=== PATIENT | female | born 1955 | race Caucasian/White ===

== ENCOUNTER 2017-04-23 10:35 | Inpatient (IN) | payer OTHER ==
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
[2017-04-23 10:55] VITALS: BMI 62.8
[2017-04-23] MEDS ORDERED: SODIUM CHLORIDE 0.9% 1000 ML INFUS.BAG IV STA (11:21)
[2017-04-23] MEDS ORDERED: CLINDAMYCIN 900 MG PREMIX IVPB 50 ML IVPB ONE ×2 (11:42→12:16)
[2017-04-23 11:52] LABS: MCHC 28.9 g/dl (32.0-36.0); PLATELET COUNT 257 K/MM3 (134-434); RDW 21.2 % (11.6-15.6); WHITE BLOOD COUNT 20.3 K/mm3 (4.0-10.0)
[2017-04-23] MEDS ORDERED: morphine CARPU-JECT 4 MG/1 ML DISP.SYRIN IVPUSH ONE ×2 (11:53→13:49)
[2017-04-23 11:56] LABS: VENOUS BLOOD GAS HCO3 29.5 meq/L (19-25); VENOUS PH 7.34 (7.32-7.42)
[2017-04-23] MEDS ORDERED: morphine CARPU-JECT 4 MG/1 ML DISP.SYRIN ONE ×2 (11:56→13:51)
[2017-04-23 11:57] LABS: MCH 19.9 pg (25.7-33.7)
[2017-04-23 12:04] LABS: URINE APPEARANCE CLEAR; URINE BILIRUBIN NEGATIVE (NEGATIVE); URINE BLOOD NEGATIVE (NEGATIVE); URINE COLOR YELLOW; URINE GLUCOSE (UA) NEGATIVE (NEGATIVE); URINE KETONE NEGATIVE (NEGATIVE); URINE LEUK ESTERASE NEGATIVE (NEGATIVE); URINE NITRITE NEGATIVE (NEGATIVE); URINE PROTEIN NEGATIVE (NEGATIVE); URINE UROBILINOGEN NEGATIVE mg/dL (0.2-1.0)
[2017-04-23 12:13] LABS: INR 1.28 (0.82-1.09); PROTHROMBIN TIME (PATIENT) 14.1 SEC (9.98-11.88)
[2017-04-23 12:16] LABS: ACTIVATED PTT 28.3 SECONDS (26.9-34.4)
[2017-04-23 12:24] LABS: ANISOCYTOSIS 1+; HYPOCHROMIA 2+; MICROCYTOSIS FEW; PLATELET ESTIMATE ADEQUATE (NORMAL); POLYCHROMASIA 1+; TEAR DROP CELLS FEW
[2017-04-23 12:25] LABS: ALBUMIN 2.2 g/dl (3.4-5.0); ALK PHOS 80 U/L (45-117); ANION GAP 11 (8-16); BILIRUBIN,TOTAL 0.4 mg/dL (0.2-1.0); CO2 31 mmol/L (21-32); CREATININE 1.1 mg/dL (0.55-1.02); GLUCOSE,RANDOM 118 mg/dL (74-106); SGPT/ALT 28 U/L (12-78); TOT PROT 6.9 g/dl (6.4-8.2)
[2017-04-23 12:26] LABS: SGOT/AST 40 U/L (15-37)
[2017-04-23 12:27] LABS: TROPONIN I < 0.02 ng/ml (0.00-0.05)
--- NOTE | 2017-04-23 12:31 | PDOC ---
Attending Attestation - Resident Resident Name: Robert Jameson - ED Attending Attestation I have performed the following: I have examined & evaluated the patient, The case was reviewed & discussed with the resident, I agree w/resident's findings & plan, Exceptions are as noted - HPI HPI: 04/23/17 12:28 Agree with the resident's HPI as documented in the electronic medical record. - Physicial Exam PE: 04/23/17 12:28 Agree with the resident's physical examination as documented in the electronic medical record. - Medical Decision Making 04/23/17 12:28 [id number] female who is morbidly obese with history of asthma, UTI, sepsis presents the emergency department with three-day history of generalized painful rash that is desquamating; she is febrile in the emergency department to 100. Differential diagnosis includes but is not limited to: Toxic shock syndrome, Hawkins-Leonard syndrome, tea and, sepsis, pneumonia, UTI, electrolyte abnormality, toxic/at about derangement. Plan: 1. Euceda culture 2. Urine analysis 3. Labs 4. Chest x-ray 5. IV fluids for hydration 6. Pain management 7. IV antibiotics 8. ID consult 9. Hospital admission 04/23/17 14:42 Addendum: labs have been reviewed and are noted in the EMR. The WBC is markedly elevated and the lactate is 3.6. the case has been discussed with Dr. Vizcarra--will add meropenem, vancomycin and diflucan to the clindamycin. CT scan of the chest, abdomen and pelvis was considered to r/o necrotizing fasciitis however, the patient's weight exceeds the limit for CT scanner. Will admit to the ICU--accepted into the unit by Dr. Dias.
[2017-04-23] MEDS ORDERED: VANCOMYCIN 1,000 MG in DEXTROSE 5%-WATER - 250 ML IVPB ONE (13:22)
[2017-04-23] MEDS ORDERED: MEROPENEM 1,000 MG in DEXTROSE 5%-WATER - 100 ML IVPB ONE (13:22)
[2017-04-23] MEDS ORDERED: VANCOMYCIN 1 GRAM (PRE-DOCKED) 250 ML IVPB ONE (13:32)
--- NOTE | 2017-04-23 13:49 | EKG ---
Test Reason : Blood Pressure : / mmHG Vent. Rate : 111 BPM Atrial Rate : 111 BPM P-R Int : 142 ms QRS Dur : 078 ms QT Int : 316 ms P-R-T Axes : 047 004 040 degrees QTc Int : 429 ms SINUS TACHYCARDIA LOW VOLTAGE QRS BORDERLINE ECG WHEN COMPARED WITH ECG OF 21-FEB-2016 23:33, NO SIGNIFICANT CHANGE WAS FOUND Confirmed by JAYLIN HERRING MD ([id number]) on 04/23/2017 1:48:55 PM Referred By: Confirmed By:JAYLIN HERRING MD
[2017-04-23] MEDS: ACETAMINOPHEN 650 MG/20.3 ML ORAL SOLUTION (CUPS) PO PRN (14:00)
[2017-04-23] MEDS ORDERED: ACETAMINOPHEN 325 MG TABLET (FP) ONE (14:39)
[2017-04-23] MEDS ORDERED: FLUCONAZOLE 200 MG/D5W 100 ML IVPB ONE (14:43)
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
[2017-04-23] MEDS: SODIUM CHLORIDE 1,000 ML IV SCH (15:55)
[2017-04-23] MEDS: SODIUM CHLORIDE 0.9% 1000 ML INFUS.BAG IV ONE ×2 (15:56→20:10)
--- NOTE | 2017-04-23 16:35 | CONSULT ---
Consult Consult Specialty:: infectious diseases Reason for Consultation:: rash,fever,cellulitits - History of Present Illness Chief Complaint: rash,fever,weakness History of Present Illness: 61 year old morbidly obese female who is presenting with her with a progressive painful rash an increasing shortness of breath. according to the notes patient was hypoxic on arrival,currently patient is breathing well Patient's first noticed peeling along the backs of the patient's calfs 4 -5 days ago that was itchy. It then became red and started spreading around her legs and abdomen. Three days ago the rash on the back of the legs started splitting and getting painful. Over the last three days the rash spread over the majority of the rest of her body and became exquisitely painful, especially along the backs of both legs from the buttocks to the knee. also of note is that the patients perinial area is extremely red and painful and i also can see a breach in the skin looking at the patient she looks pretty septic patients in the room patient mentions that she never felt anything like this before and feels very weak. patient is morbidly obese and bed bound - History Source History Provided By: Patient, Family Member Limitations to Obtaining History: No Limitations - Past Medical History Cardio/Vascular: Yes: HTN Pulmonary: Yes: Asthma, Pneumonia - Past Surgical History Past Surgical History: Yes: Colectomy - Alcohol/Substance Use Hx Alcohol Use: No History of Substance Use: reports: None - Smoking History Smoking history: Former smoker Have you smoked in the past 12 months: No Aproximately how many cigarettes per day: 0 If you are a former smoker, when did you quit?: 1979 - Social History ADL: Support Services Occupation: unemployed History of Recent Travel: No Home Medications - Allergies Allergies/Adverse Reactions: Allergies Allergy/AdvReac Type Severity Reaction Status Date / Time piperacillin sodium Allergy Rash Verified 04/23/17 10:50 [From Zosyn] tazobactam sodium Allergy Rash Verified 04/23/17 10:50 [From Zosyn] - Home Medications Home Medications: Ambulatory Orders Acetaminophen [Tylenol] 975 mg PO Q6H PRN 02/22/16 Albuterol 2.5/Ipratropium 0.5 [Duoneb -] 1 neb NEB Q6H 02/22/16 Amitriptyline HCl [Elavil -] 10 mg PO HS 02/22/16 Fluticasone/Salmeterol [Advair 250-50 Diskus] 1 each IH BID 02/22/16 Furosemide [Lasix -] 40 mg PO DAILY 02/22/16 Gabapentin [Neurontin] 300 mg PO Q8H 02/22/16 Heparin - 5,000 unit SQ TID 02/22/16 Mag Hydrox/Al Hydrox/Simeth [Mylanta Oral Suspension -] 30 ml PO Q6H PRN Pantoprazole Sodium [Protonix] 40 mg PO DAILY 02/22/16 Polyvinyl Alcohol [Artificial Tears] 15 ml OD BID 02/22/16 Hydrocortisone 1% Ointment [Hytone 1% Ointment -] 1 applic TP Q6H PRN #0 tube Hydroxyzine HCl [Atarax -] 25 mg PO Q8H PRN #0 tablet 02/29/16 Lisinopril [Prinivil] 20 mg PO BID tablet 02/29/16 Nitrofurantoin Macrocrystal [Macrodantin -] 50 mg PO Q6HPO 5 Days 02/29/16 Nystatin Ointment [Mycostatin Ointment -] 1 applic TP BID applic 02/29/16 Nystatin Powder [Nystop Powder -] 1 applic TP DAILY applic 02/29/16 Phenazopyridine HCl [Pyridium -] 100 mg PO TID tablet 02/29/16 Vitamin A & D Top Oint - 1 applic TP BID tube 02/29/16 Family Disease History - Family Disease History Family Disease History: Heart Disease: Father Review of Systems - Review of Systems Constitutional: reports: Chills, Fever Eyes: reports: No Symptoms HENT: reports: No Symptoms Neck: reports: No Symptoms Cardiovascular: reports: No Symptoms Respiratory: reports: SOB, SOB on Exertion Gastrointestinal: reports: No Symptoms Genitourinary: reports: No Symptoms Integumentary: reports: Bruising, Rash, Other Neurological: reports: No Symptoms Endocrine: reports: No Symptoms Hematology/Lymphatic: reports: No Symptoms Psychiatric: reports: No Symptoms Physical Exam Vital Signs: Vital Signs Temperature 100.0 F H 04/23/17 13:47 Pulse Rate 114 H 04/23/17 13:47 Respiratory Rate 24 04/23/17 13:47 Blood Pressure 105/53 04/23/17 13:47 O2 Sat by Pulse Oximetry (%) 97 04/23/17 13:47 Constitutional: Yes: Moderate Distress, Obese (mrbid obesity), Poor Hygeine Eyes: Yes: Conjunctiva Clear HENT: Yes: Atraumatic Neck: Yes: Supple, Trachea Midline Cardiovascular: Yes: Regular Rate and Rhythm, S1, S2 Respiratory: Yes: Poor Air Entry (at the bases) Gastrointestinal: Yes: Normal Bowel Sounds, Soft Musculoskeletal: Yes: Other Extremities: Yes: Other Edema: LLE: 1+, RLE: 1+ Integumentary: Yes: Erythema, Rash, Skin Tear, Venous Stasis Changes Wound/Incision: Yes: Other (multiple rashes with splitting of the skin all over the body) Neurological: Yes: Alert, Oriented Psychiatric: Yes: Alert, Oriented Imaging - Results Chest X-ray: Report Reviewed, Image Reviewed Assessment/Plan - Problems (1) Cellulitis Code(s): L03.90 - CELLULITIS, UNSPECIFIED Qualifiers: Site of cellulitis: unspecified site Qualified Code(s): L03.90 - Cellulitis, unspecified (2) Desquamated skin Code(s): R23.4 - CHANGES IN SKIN TEXTURE (3) Sepsis Code(s): A41.9 - SEPSIS, UNSPECIFIED ORGANISM Qualifiers: Sepsis type: sepsis due to unspecified organism Qualified Code(s): A41.9 - Sepsis, unspecified organism (4) generalized rash 5 abd wall cellulitis morbid obesity sepsis patient looks like she has staph infection all over the body i am also worried about fungal infection also patient being hypoxic worry is for pe as she is bed bound the perineum has cellulitis and there is slight breach of the skin because of morbid obesity ct scan or mri is not possible plan will start on abx hydration treatment like akins suggest derm consult close monitoring rest as per primary
[2017-04-23] MEDS: morphine CARPU-JECT 4 MG/1 ML DISP.SYRIN IVPB PRN (19:35)
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
[2017-04-23] MEDS: HEPARIN NA (PORCINE) 5,000 UNITS/ML 1ML VIAL SQ SCH (22:17)
[2017-04-23] MEDS: MEROPENEM 1 GM in DEXTROSE 5%-WATER - 100 ML IVPB SCH (22:18)
[2017-04-23] MEDS: CHLORHEXIDINE GLUCONATE 4% CLEANSER FOR DECOLONIZATION TP SCH (22:18)
[2017-04-23] MEDS: MUPIROCIN 2% TOPICAL OINTMENT 22 GM TUBE NS SCH (22:20)
[2017-04-24] MEDS: MEROPENEM 1 GM in DEXTROSE 5%-WATER - 100 ML IVPB SCH ×3 (01:53→17:59)
[2017-04-24] MEDS: HEPARIN NA (PORCINE) 5,000 UNITS/ML 1ML VIAL SQ SCH ×2 (01:53→10:32)
[2017-04-24 06:24] LABS: MCHC 28.4 g/dl (32.0-36.0); MEAN CELL VOLUME 69.7 fl (80-96); MEAN PLT VOLUME 8.9 fl (7.5-11.1); PLATELET COUNT 267 K/MM3 (134-434); RDW 21.7 % (11.6-15.6); WHITE BLOOD COUNT 18.5 K/mm3 (4.0-10.0)
[2017-04-24 06:43] LABS: MCH 19.8 pg (25.7-33.7)
[2017-04-24 07:10] LABS: ALBUMIN 1.9 g/dl (3.4-5.0); ANION GAP 7 (8-16); BILIRUBIN,TOTAL 0.3 mg/dL (0.2-1.0); CALCIUM 7.3 mg/dL (8.5-10.1); CO2 33 mmol/L (21-32); CREATININE 0.9 mg/dL (0.55-1.02); GLUCOSE,RANDOM 82 mg/dL (74-106); PHOSPHOROUS 4.1 mg/dL (2.5-4.9); SGOT/AST 23 U/L (15-37); SGPT/ALT 26 U/L (12-78); TOT PROT 6.1 g/dl (6.4-8.2)
[2017-04-24 07:11] LABS: ALK PHOS 70 U/L (45-117)
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
[2017-04-24] MEDS ORDERED: PT OWN MED DRAWER 7, Y5N ONE ×3 (09:40→17:14)
[2017-04-24] MEDS: VANCOMYCIN 1,250 MG in DEXTROSE 5%-WATER - 250 ML IVPB SCH (10:32)
[2017-04-24] MEDS: morphine CARPU-JECT 4 MG/1 ML DISP.SYRIN IVPB PRN ×2 (10:41→15:59)
[2017-04-24] MEDS: SODIUM CHLORIDE 1,000 ML IV SCH ×2 (10:44→16:01)
[2017-04-24] MEDS: ACETAMINOPHEN 650 MG/20.3 ML ORAL SOLUTION (CUPS) PO PRN (10:46)
[2017-04-24] MEDS: MUPIROCIN 2% TOPICAL OINTMENT 22 GM TUBE NS SCH ×2 (11:03→23:02)
[2017-04-24] MEDS ORDERED: HEPARIN NA (PORCINE) 5,000 UNITS/ML 1ML VIAL IVPUSH PRN ×3 (11:22→11:33)
[2017-04-24] MEDS ORDERED: HEPARIN - 25,000 UNIT in SODIUM CHLORIDE 495 ML IV SCH (11:30)
[2017-04-24] MEDS ORDERED: HEPARIN NA (PORCINE) 5,000 UNITS/ML 1ML VIAL IVPUSH ONE (11:34)
--- NOTE | 2017-04-24 11:45 | PN ---
Progress Note (short form) - Note Progress Note: Patient seen and examined in the ICU. Awake and alert. No significant change in her superficial skin desquamation. No lesions noted in the oral cavity. No CP. Mildly SOB. There is a concern for VTE. Patient cannot be scanned in CT scanner due to body habitus. Noted increased D-Dimer. Intake & Output 04/21/17 04/22/17 04/23/17 04/24/17 23:59 23:59 23:59 23:59 Intake Total 1000 1350 Output Total 30 650 Balance 970 700 Weight 355 lb 355 lb Last Vital Signs Temp Pulse Resp BP Pulse Ox 99.7 F H 99 H 20 113/56 97 04/24/17 02:00 04/24/17 06:00 04/24/17 06:00 04/24/17 06:00 04/23/17 21:00 Active Medications Acetaminophen (Tylenol Oral Solution -) 650 mg PO Q6H PRN PRN Reason: FEVER OR PAIN Last Admin: 04/24/17 10:46 Dose: 650 mg Chlorhexidine Gluconate (Hibiclens For Decolonization -) 1 applic TP HS WAYNE Last Admin: 04/23/17 22:18 Dose: 1 applic Fentanyl (Sublimaze Injection -) 50 mcg IVPUSH Q1H PRN PRN Reason: PAIN LEVEL 1-5 Stop: 04/24/17 20:29 Last Admin: 04/24/17 06:14 Dose: 50 mcg Heparin Sodium (Porcine) (Heparin -) 5,000 unit IVPUSH PRN PRN PRN Reason: Heparin Heparin Sodium (Porcine) (Heparin -) 1,000 unit IVPUSH PRN PRN PRN Reason: Heparin Heparin Sodium (Porcine) (Heparin -) 5,000 unit IVPUSH ONCE ONE Stop: 04/24/17 11:35 Sodium Chloride (Normal Saline -) 1,000 mls @ 100 mls/hr IV ASDIR WAYNE Last Admin: 04/24/17 10:44 Dose: 100 mls/hr Meropenem 1 gm/ Dextrose 100 mls @ 200 mls/hr IVPB Q8H-IV WAYNE PRN Reason: Protocol Last Admin: 04/24/17 10:32 Dose: 200 mls/hr Vancomycin HCl 1,250 mg/ (Dextrose) 250 mls @ 166.667 mls/hr IVPB DAILY WAYNE PRN Reason: Protocol Last Admin: 04/24/17 10:32 Dose: 166.667 mls/hr Heparin Sodium (Porcine) 25, (000 unit/ Sodium Chloride) 500 mls @ 20 mls/hr IV TITR WAYNE; 1,000 UNIT/HR PRN Reason: Protocol Morphine Sulfate (Morphine Injection -) 4 mg IVPB Q6H PRN PRN Reason: PAIN Last Admin: 04/24/17 10:41 Dose: 4 mg Mupirocin (Bactroban 2% Ointment -) 1 applic NS BID WAYNE Stop: 04/28/17 21:59 Last Admin: 04/24/17 11:03 Dose: Not Given Constitutional: Yes: Awake and alert, Anxious Eyes: Yes: WNL, Conjunctiva Clear, EOM Intact, PERRL (no rash involvement of face/eyes) HENT: Yes: Atraumatic, Normocephalic Neck: Yes: Supple, Trachea Midline. No: Lymphadenopathy, Tenderness Cardiovascular: Yes: Regular Rate and Rhythm, S1, S2, Other (distant) Respiratory: Yes: CTA Bilaterally, Diminished, On Nasal O2. No: Accessory Muscle Use, Wheezes Gastrointestinal: Yes: Soft, Abdomen, Obese ...Rectal Exam: Yes: WNL Renal/: Yes: Kaur Present. No: Vaginal Bleeding, Vaginal Discharge Breast(s): Yes: WNL Musculoskeletal: Yes: WNL Extremities: Yes: Erythema Edema: Yes Edema: LUE: 1+, RUE: 1+, LLE: 1+, RLE: 1+ Peripheral Pulses WNL: Yes Integumentary: Yes: Erythema, Skin Tear, Venous Stasis Changes, Other (diffuse macularpapular rash with desquamation of hand feet, some topical sloughing and significantly worse in folds and labial/perianal no necrosis, no bullae, no crepitus.). No: Petechiae Neurological: Yes: Alert, Oriented ...Motor Strength: WNL Psychiatric: Yes: Alert, Oriented Labs: Laboratory Results - last 24 hr 04/23/17 04/23/17 04/23/17 11:21 11:40 11:40 WBC 20.3 H RBC 4.76 Hgb 9.5 L D Hct 32.8 MCV 69.0 L D MCH 19.9 L MCHC 28.9 L RDW 21.2 H D Plt Count 257 D MPV 9.0 Neutrophils % 61.0 Lymphocytes % 9.0 D Monocytes % 11.0 H Eosinophils % 17.0 H D Basophils % 1.0 D Band Neutrophils 1.0 D Nucleated RBCs 1 H Differential Comment Manual diff done Platelet Estimate Adequate Polychromasia 1+ Hypochromic-Microcytic 2+ Anisocytosis 1+ Microcytosis Few Macrocytosis Few Tear Drop Cells Few Morphology Comment Slide scanned INR 1.28 H PTT (Actin FS) 28.3 D-Dimer VBG pH 7.34 POC VBG pCO2 55.9 H POC VBG pO2 58.8 H D Mixed VBG HCO3 29.5 H Sodium Potassium Chloride Carbon Dioxide Anion Gap BUN Creatinine Creat Clearance w eGFR Random Glucose Hemoglobin A1c % Lactic Acid Calcium Phosphorus Magnesium Total Bilirubin AST ALT Alkaline Phosphatase Creatine Kinase Creatine Kinase Index CK-MB (CK-2) Troponin I Total Protein Albumin Urine Color Urine Appearance Urine pH Ur Specific [place] Urine Protein Urine Glucose (UA) Urine Ketones Urine Blood Urine Nitrite Urine Bilirubin Urine Urobilinogen Ur Leukocyte Esterase Blood Type Antibody Screen 04/23/17 04/23/17 04/23/17 11:40 11:40 11:40 WBC RBC Hgb Hct MCV MCH MCHC RDW Plt Count MPV Neutrophils % Lymphocytes % Monocytes % Eosinophils % Basophils % Band Neutrophils Nucleated RBCs Differential Comment Platelet Estimate Polychromasia Hypochromic-Microcytic Anisocytosis Microcytosis Macrocytosis Tear Drop Cells Morphology Comment INR PTT (Actin FS) D-Dimer VBG pH POC VBG pCO2 POC VBG pO2 Mixed VBG HCO3 Sodium 137 Potassium 4.9 Chloride 95 L Carbon Dioxide 31 Anion Gap 11 BUN 26 H D Creatinine 1.1 H D Creat Clearance w eGFR 50.84 Random Glucose 118 H D Hemoglobin A1c % Lactic Acid 3.6 H* Calcium 8.0 L Phosphorus Magnesium Total Bilirubin 0.4 D AST 40 H D ALT 28 D Alkaline Phosphatase 80 D Creatine Kinase 160 D Creatine Kinase Index 0.8 CK-MB (CK-2) 1.225 Troponin I < 0.02 Total Protein 6.9 Albumin 2.2 L Urine Color Yellow Urine Appearance Clear Urine pH 5.0 Ur Specific [place] 1.010 Urine Protein Negative Urine Glucose (UA) Negative Urine Ketones Negative Urine Blood Negative Urine Nitrite Negative Urine Bilirubin Negative Urine Urobilinogen Negative Ur Leukocyte Esterase Negative Blood Type Antibody Screen 04/23/17 04/23/17 04/24/17 11:40 16:20 05:15 WBC 18.5 H RBC 4.49 Hgb 8.9 L Hct 31.3 L MCV 69.7 L MCH 19.8 L MCHC 28.4 L RDW 21.7 H Plt Count 267 MPV 8.9 Neutrophils % Lymphocytes % Monocytes % Eosinophils % Basophils % Band Neutrophils Nucleated RBCs Differential Comment Platelet Estimate Polychromasia Hypochromic-Microcytic Anisocytosis Microcytosis Macrocytosis Tear Drop Cells Morphology Comment INR PTT (Actin FS) D-Dimer VBG pH POC VBG pCO2 POC VBG pO2 Mixed VBG HCO3 Sodium Potassium Chloride Carbon Dioxide Anion Gap BUN Creatinine Creat Clearance w eGFR Random Glucose Hemoglobin A1c % Lactic Acid 1.8 Calcium Phosphorus Magnesium Total Bilirubin AST ALT Alkaline Phosphatase Creatine Kinase Creatine Kinase Index CK-MB (CK-2) Troponin I Total Protein Albumin Urine Color Urine Appearance Urine pH Ur Specific [place] Urine Protein Urine Glucose (UA) Urine Ketones Urine Blood Urine Nitrite Urine Bilirubin Urine Urobilinogen Ur Leukocyte Esterase Blood Type A POSITIVE Antibody Screen Negative 04/24/17 04/24/17 04/24/17 05:15 05:15 05:15 WBC RBC Hgb Hct MCV MCH MCHC RDW Plt Count MPV Neutrophils % Lymphocytes % Monocytes % Eosinophils % Basophils % Band Neutrophils Nucleated RBCs Differential Comment Platelet Estimate Polychromasia Hypochromic-Microcytic Anisocytosis Microcytosis Macrocytosis Tear Drop Cells Morphology Comment INR PTT (Actin FS) D-Dimer VBG pH POC VBG pCO2 POC VBG pO2 Mixed VBG HCO3 Sodium 138 Potassium 5.3 H Chloride 98 Carbon Dioxide 33 H Anion Gap 7 L BUN 24 H Creatinine 0.9 Creat Clearance w eGFR > 60 Random Glucose 82 D Hemoglobin A1c % 7.6 H Lactic Acid 1.0 Calcium 7.3 L Phosphorus 4.1 Magnesium 2.0 Total Bilirubin 0.3 D AST 23 D ALT 26 Alkaline Phosphatase 70 Creatine Kinase Creatine Kinase Index CK-MB (CK-2) Troponin I Total Protein 6.1 L Albumin 1.9 L Urine Color Urine Appearance Urine pH Ur Specific [place] Urine Protein Urine Glucose (UA) Urine Ketones Urine Blood Urine Nitrite Urine Bilirubin Urine Urobilinogen Ur Leukocyte Esterase Blood Type Antibody Screen 04/24/17 10:15 WBC RBC Hgb Hct MCV MCH MCHC RDW Plt Count MPV Neutrophils % Lymphocytes % Monocytes % Eosinophils % Basophils % Band Neutrophils Nucleated RBCs Differential Comment Platelet Estimate Polychromasia Hypochromic-Microcytic Anisocytosis Microcytosis Macrocytosis Tear Drop Cells Morphology Comment INR PTT (Actin FS) D-Dimer 1293 H VBG pH POC VBG pCO2 POC VBG pO2 Mixed VBG HCO3 Sodium Potassium Chloride Carbon Dioxide Anion Gap BUN Creatinine Creat Clearance w eGFR Random Glucose Hemoglobin A1c % Lactic Acid Calcium Phosphorus Magnesium Total Bilirubin AST ALT Alkaline Phosphatase Creatine Kinase Creatine Kinase Index CK-MB (CK-2) Troponin I Total Protein Albumin Urine Color Urine Appearance Urine pH Ur Specific [place] Urine Protein Urine Glucose (UA) Urine Ketones Urine Blood Urine Nitrite Urine Bilirubin Urine Urobilinogen Ur Leukocyte Esterase Blood Type Antibody Screen Problem List - Problems (1) Cellulitis Code(s): L03.90 - CELLULITIS, UNSPECIFIED Qualifiers: Site of cellulitis: unspecified site Qualified Code(s): L03.90 - Cellulitis, unspecified (2) Desquamated skin Code(s): R23.4 - CHANGES IN SKIN TEXTURE (3) Sepsis Code(s): A41.9 - SEPSIS, UNSPECIFIED ORGANISM Qualifiers: Sepsis type: sepsis due to unspecified organism Qualified Code(s): A41.9 - Sepsis, unspecified organism (4) Drug-induced skin rash Code(s): L27.0 - GEN SKIN ERUPTION DUE TO DRUGS AND MEDS TAKEN INTERNALLY Assessment/Plan Etiology of skin lesions are unclear -> Appears that only the superficial layers are affected. -> Dermatology consult has been called, but appears none are available IVF Agree with empiric IV Heparin O2 as needed I have asked the patient to have her bring in all her pills and his as well for our review. BD TX PRN Hold all home meds for now Would not be inappropriate to disposition the patient to e tertiary care center for further workup. She is currently clinically/hemodynamically stable for transport. Dr Caldwell Critical Care Time/MDM Note Total Critical Care Time: 35 Critical Care Statement: The care of this patient involved high complexity decision making to prevent further life threatening deterioration of the patient 's condition and/or to evalute & treat vital organ system(s) failure or risk of failure.
--- NOTE | 2017-04-24 15:53 | PN ---
Progress Note, Physician History of Present Illness: patient continues to be uncomfortable in icu - Current Medication List Current Medications: Active Medications Acetaminophen (Tylenol Oral Solution -) 650 mg PO Q6H PRN PRN Reason: FEVER OR PAIN Last Admin: 04/24/17 10:46 Dose: 650 mg Albuterol/Ipratropium (Duoneb -) 1 amp NEB Q6H PRN PRN Reason: SHORTNESS OF BREATH Chlorhexidine Gluconate (Hibiclens For Decolonization -) 1 applic TP HS WAYNE Last Admin: 04/23/17 22:18 Dose: 1 applic Fentanyl (Sublimaze Injection -) 50 mcg IVPUSH Q1H PRN PRN Reason: PAIN LEVEL 1-5 Stop: 04/24/17 20:29 Last Admin: 04/24/17 06:14 Dose: 50 mcg Heparin Sodium (Porcine) (Heparin -) 5,000 unit IVPUSH PRN PRN PRN Reason: Heparin Heparin Sodium (Porcine) (Heparin -) 1,000 unit IVPUSH PRN PRN PRN Reason: Heparin Sodium Chloride (Normal Saline -) 1,000 mls @ 100 mls/hr IV ASDIR WAYNE Last Admin: 04/24/17 10:44 Dose: 100 mls/hr Meropenem 1 gm/ Dextrose 100 mls @ 200 mls/hr IVPB Q8H-IV WAYNE PRN Reason: Protocol Last Admin: 04/24/17 10:32 Dose: 200 mls/hr Vancomycin HCl 1,250 mg/ (Dextrose) 250 mls @ 166.667 mls/hr IVPB DAILY WAYNE PRN Reason: Protocol Last Admin: 04/24/17 10:32 Dose: 166.667 mls/hr Heparin Sodium (Porcine) 25, (000 unit/ Sodium Chloride) 500 mls @ 20 mls/hr IV TITR WAYNE; 1,000 UNIT/HR PRN Reason: Protocol Morphine Sulfate (Morphine Injection -) 4 mg IVPB Q6H PRN PRN Reason: PAIN Last Admin: 04/24/17 10:41 Dose: 4 mg Mupirocin (Bactroban 2% Ointment -) 1 applic NS BID WAYNE Stop: 04/28/17 21:59 Last Admin: 04/24/17 11:03 Dose: Not Given - Objective Vital Signs: Vital Signs Temperature 100.3 F H 04/24/17 10:00 Pulse Rate 108 H 04/24/17 12:00 Respiratory Rate 28 H 04/24/17 12:00 Blood Pressure 102/47 04/24/17 12:00 O2 Sat by Pulse Oximetry (%) 100 04/24/17 14:00 Constitutional: Yes: Obese Eyes: Yes: Conjunctiva Clear Respiratory: Yes: Regular, Poor Air Entry Gastrointestinal: Yes: Normal Bowel Sounds, Soft Musculoskeletal: Yes: Other Extremities: Yes: Other Edema: LLE: 2+, RLE: 2+ Integumentary: Yes: Other (rash all over the body with Erythema, Skin Tear, Venous Stasis Changes, diffuse macularpapular rash with desquamation of hand feet, with sloughing which is worse in folds and labial/perianal no necrosis, no bullae, no crepitus.).) Wound/Incision: Yes: Other Neurological: Yes: Alert, Oriented Psychiatric: Yes: Alert, Oriented Labs: CBC, BMP 04/24/17 05:15 04/24/17 05:15 INR, PTT INR 1.28 (0.82-1.09) H 04/23/17 11:40 Assessment/Plan - Problems (1) Cellulitis Code(s): L03.90 - CELLULITIS, UNSPECIFIED Qualifiers: Site of cellulitis: unspecified site Qualified Code(s): L03.90 - Cellulitis, unspecified (2) Desquamated skin Code(s): R23.4 - CHANGES IN SKIN TEXTURE (3) Sepsis Code(s): A41.9 - SEPSIS, UNSPECIFIED ORGANISM Qualifiers: Sepsis type: sepsis due to unspecified organism Qualified Code(s): A41.9 - Sepsis, unspecified organism (4) generalized rash 5 abd wall cellulitis morbid obesity sepsis patient was tried to be transferred to tertiary care was not accepted plan continue abx hydration await for dermatology continue current abx continue as per primary and icu cc time 40 min
[2017-04-24] MEDS: HEPARIN - 25,000 UNIT in SODIUM CHLORIDE 495 ML IV SCH (15:58)
[2017-04-24] MEDS: ALBUTEROL SO4 2.5/IPRATROPIUM 0.5 INH SOL 3 ML VIAL.NEB. NEB PRN (19:11)
[2017-04-24] MEDS ORDERED: LIDOCAINE HCL 1% PRESERVATIVE FREE - 30ML VIAL EP ONE (21:09)
[2017-04-24] MEDS ORDERED: LIDOCAINE 1%-EPI 1:100,000 30 ML MDV IJ ONE (21:30)
[2017-04-24] MEDS ORDERED: INSULIN SLIDING SCALE (NOVOLOG) 1 VIAL SQ SCH (22:00)
[2017-04-24] MEDS ORDERED: MINERAL OIL/PET HY-PHL TOPICAL OINTMENT 454 GM JAR TP ONE (22:30)
[2017-04-24] MEDS: CHLORHEXIDINE GLUCONATE 4% CLEANSER FOR DECOLONIZATION TP SCH (22:51)
[2017-04-24] MEDS: HEPARIN NA (PORCINE) 5,000 UNITS/ML 1ML VIAL IVPUSH PRN (23:00)
[2017-04-25] MEDS ORDERED: ACETAMINOPHEN 1000 MG/100 ML VIAL (NON FORMULARY) IVPB PRN (01:27)
[2017-04-25] MEDS ORDERED: PT OWN MED DRAWER 7, Y5N ONE (01:28)
[2017-04-25] MEDS: MEROPENEM 1 GM in DEXTROSE 5%-WATER - 100 ML IVPB SCH ×3 (01:31→18:46)
[2017-04-25] MEDS ORDERED: LACTATED RINGERS SOLUTION 1,000 ML IV STA (02:43)
[2017-04-25] MEDS ORDERED: PHENYLEPHRINE HCL 10 MG/1 ML SINGLE DOSE VIAL ONE ×3 (04:16→18:37)
[2017-04-25] MEDS: PHENYLEPHRINE HCL 20,000 MCG in SODIUM CHLORIDE 248 ML IVPB SCH ×3 (04:43→19:20)
[2017-04-25 08:30] LABS: BASOPHIL 0.8 % (0-2.0); EOSINOPHIL 14.9 % (0-4.5); MCH 20.1 pg (25.7-33.7); MCHC 28.7 g/dl (32.0-36.0); MEAN CELL VOLUME 69.9 fl (80-96); NEUTROPHILS 68.1 % (42.8-82.8); PLATELET COUNT 265 K/MM3 (134-434); RDW 21.8 % (11.6-15.6); WHITE BLOOD COUNT 19.1 K/mm3 (4.0-10.0)
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
[2017-04-25] MEDS: ACETAMINOPHEN 650 MG/20.3 ML ORAL SOLUTION (CUPS) PO PRN (08:43)
[2017-04-25 08:55] LABS: ALBUMIN 1.8 g/dl (3.4-5.0); ANION GAP 4 (8-16); BILIRUBIN,TOTAL 0.3 mg/dL (0.2-1.0); CALCIUM 7.5 mg/dL (8.5-10.1); CO2 31 mmol/L (21-32); CREATININE 0.6 mg/dL (0.55-1.02); GLUCOSE,RANDOM 95 mg/dL (74-106); SGPT/ALT 25 U/L (12-78); TOT PROT 6.5 g/dl (6.4-8.2)
[2017-04-25 08:56] LABS: ALK PHOS 73 U/L (45-117)
[2017-04-25 08:57] LABS: SGOT/AST 33 U/L (15-37)
[2017-04-25 09:04] LABS: URINE APPEARANCE TURBID; URINE BILIRUBIN NEGATIVE (NEGATIVE); URINE BLOOD 2+ (NEGATIVE); URINE COLOR STRAW; URINE GLUCOSE (UA) NEGATIVE (NEGATIVE); URINE KETONE NEGATIVE (NEGATIVE); URINE LEUK ESTERASE NEGATIVE (NEGATIVE); URINE NITRITE NEGATIVE (NEGATIVE); URINE PROTEIN NEGATIVE (NEGATIVE); URINE UROBILINOGEN NEGATIVE mg/dL (0.2-1.0)
[2017-04-25] MEDS ORDERED: SODIUM POLYSTYRENE SULFONATE 15 GM/60 ML BOTTLE PO ONE ×2 (09:08→09:30)
[2017-04-25] MEDS ORDERED: LIDOCAINE HCL 1%, 10 MG/ML (20ML VIAL) ONE (10:25)
[2017-04-25 10:33] LABS: URIC ACID CRYSTALS MANY /hpf (NONE SEEN); URINE RBC 17 /hpf (0-3); URINE WBC 1 /hpf (3-5)
--- NOTE | 2017-04-25 10:39 | PROC ---
Central Line Insertion Indication: CVP Monitoring, Poor Venous Access, Sepsis, Vasopressor Risks and Benefits Explained: Yes Consent on Chart: Yes Central Line: Triple Lumen Catheter Anesthesia: 1% Lidocaine Sterile Technique: Yes Ultrasound Guided Assistance: Yes Position: Left Internal Jugular Post Insertion: Yes: Bilateral Breath Sounds, Bilateral Chest Expansion Sterile Dressing Applied: Yes
--- NOTE | 2017-04-25 10:45 | PN ---
Progress Note (short form) - Note Progress Note: PULM/CRITICAL CARE MEDICINE: Progress Note (short form) - Note Progress Note: Patient seen and examined in the ICU. 24 HOUR EVENTS: Remains on pressors. IV access is an issue. Not accepted for transfer to tertiary facility. Madhavi saw pt. Current Medications Acetaminophen (Tylenol Oral Solution -) 650 mg PO Q6H PRN PRN Reason: FEVER OR PAIN Last Admin: 04/25/17 08:43 Dose: 650 mg Acetaminophen (Ofirmev Injection -) 1,000 mg IVPB Q6H PRN PRN Reason: FEVER OR PAIN Stop: 04/25/17 19:28 Last Admin: 04/25/17 01:32 Dose: 1,000 mg Albuterol/Ipratropium (Duoneb -) 1 amp NEB Q6H PRN PRN Reason: SHORTNESS OF BREATH Last Admin: 04/24/17 19:11 Dose: 1 amp Chlorhexidine Gluconate (Hibiclens For Decolonization -) 1 applic TP HS WAYNE Last Admin: 04/24/17 22:51 Dose: Not Given Emollient Ointment (Aquaphor -) 1 applic TP TID WAYNE Heparin Sodium (Porcine) (Heparin -) 5,000 unit IVPUSH PRN PRN PRN Reason: Heparin Last Admin: 04/24/17 23:00 Dose: 5,000 unit Heparin Sodium (Porcine) (Heparin -) 1,000 unit IVPUSH PRN PRN PRN Reason: Heparin Sodium Chloride (Normal Saline -) 1,000 mls @ 100 mls/hr IV ASDIR WAYNE Last Admin: 04/24/17 16:01 Dose: Not Given Meropenem 1 gm/ Dextrose 100 mls @ 200 mls/hr IVPB Q8H-IV WAYNE PRN Reason: Protocol Last Admin: 04/25/17 10:16 Dose: 200 mls/hr Vancomycin HCl 1,250 mg/ (Dextrose) 250 mls @ 166.667 mls/hr IVPB DAILY WAYNE PRN Reason: Protocol Last Admin: 04/24/17 10:32 Dose: 166.667 mls/hr Heparin Sodium (Porcine) 25, (000 unit/ Sodium Chloride) 500 mls @ 20 mls/hr IV TITR WAYNE; 1,000 UNIT/HR PRN Reason: Protocol Last Titration: 04/24/17 22:49 Dose: 1,150 unit/hr Phenylephrine HCl 20,000 mcg/ (Sodium Chloride) 250 mls @ 75 mls/hr IVPB ASDIR WAYNE; 100 MCG/MIN PRN Reason: Protocol Last Admin: 04/25/17 04:43 Dose: 37.5 mls/hr Clindamycin Phosphate (Cleocin 600 Mg Premix Ivpb -) 50 mls @ 100 mls/hr IVPB Q6H-IV WAYNE Morphine Sulfate (Morphine Injection -) 4 mg IVPB Q6H PRN PRN Reason: PAIN Last Admin: 04/24/17 15:59 Dose: 4 mg Mupirocin (Bactroban 2% Ointment -) 1 applic NS BID WAYNE Stop: 04/28/17 21:59 Last Admin: 04/24/17 23:02 Dose: 1 applic Vital Signs Temp 99.2 F 04/25/17 10:00 Pulse 100 H 04/25/17 10:32 Resp 24 04/25/17 10:00 BP 96/63 04/25/17 10:00 Pulse Ox 98 04/25/17 10:32 Intake & Output 04/24/17 04/25/17 04/25/17 18:59 06:59 18:59 Intake Total 2130 3310 240 Output Total 400 1450 Balance 1730 1860 240 Intake: IV 1280 2620 Normal Saline - 1,000 ml 1200 2200 @ 100 mls/hr IV ASDIR WAYNE Rx#:[id number] Heparin - 25,000 Unit In 80 270 Normal Saline - 495 ml @ 1,000 UNIT/HR 20 mls/hr IV TITR WAYNE Rx#: [id number] Lactated Ringers Solution 150 1,000 ml @ 1000 mls/hr IV ONCE STA Rx#: [id number] IVPB 450 200 Oral 400 490 240 Output: Urine 400 1450 Kaur 400 1450 Other: Voiding Method Indwelling Catheter Indwelling Catheter Indwelling Catheter Bowel Movement No No Constitutional: Yes: Awake and alert, Anxious Eyes: Yes: WNL, Conjunctiva Clear, EOM Intact, PERRL (no rash involvement of face/eyes) HENT: Yes: Atraumatic, Normocephalic Neck: Yes: Supple, Trachea Midline. No: Lymphadenopathy, Tenderness Cardiovascular: Yes: Regular Rate and Rhythm, S1, S2, Other (distant) Respiratory: Yes: CTA Bilaterally, Diminished, On Nasal O2. No: Accessory Muscle Use, Wheezes Gastrointestinal: Yes: Soft, Abdomen, Obese ...Rectal Exam: Yes: WNL Renal/: Yes: Kaur Present. No: Vaginal Bleeding, Vaginal Discharge Breast(s): Yes: WNL Musculoskeletal: Yes: WNL Extremities: Yes: Erythema Edema: Yes Edema: LUE: 1+, RUE: 1+, LLE: 1+, RLE: 1+ Peripheral Pulses WNL: Yes Integumentary: Yes: Erythema, Skin Tear, Venous Stasis Changes, Other (diffuse macularpapular rash with desquamation of hand feet, some topical sloughing and significantly worse in folds and labial/perianal no necrosis, no bullae, no crepitus.). No: Petechiae Neurological: Yes: Alert, Oriented ...Motor Strength: WNL Psychiatric: Yes: Alert, Oriented Labs: CBC, BMP 04/25/17 08:10 04/25/17 08:10 Microbiology 04/23/17 12:10 Blood Culture - Preliminary Blood - Peripheral Venous NO GROWTH OBTAINED AFTER 24 HOURS, INCUBATION TO CONTINUE FOR 4 DAYS. 04/23/17 11:40 Blood Culture - Preliminary Blood - Peripheral Venous NO GROWTH OBTAINED AFTER 24 HOURS, INCUBATION TO CONTINUE FOR 4 DAYS. 04/23/17 11:40 Urine Culture - Final Urine - Urine Clean Catch NO GROWTH OBTAINED Problem List - Problems (1) Cellulitis Code(s): L03.90 - CELLULITIS, UNSPECIFIED Qualifiers: Site of cellulitis: unspecified site Qualified Code(s): L03.90 - Cellulitis, unspecified (2) Desquamated skin Code(s): R23.4 - CHANGES IN SKIN TEXTURE (3) Sepsis Code(s): A41.9 - SEPSIS, UNSPECIFIED ORGANISM Qualifiers: Sepsis type: sepsis due to unspecified organism Qualified Code(s): A41.9 - Sepsis, unspecified organism (4) Drug-induced skin rash Code(s): L27.0 - GEN SKIN ERUPTION DUE TO DRUGS AND MEDS TAKEN INTERNALLY Assessment/Plan Etiology of skin lesions are unclear -> Appears that only the superficial layers are affected. -> Dermatology consult following, bx done IVF ABX Will place central line for vasopressors and IV access, wean as able O2 as needed BD TX PRN Likely has LYLY/OSH - nocturnal BiPAP/CPAP, start tonight Hold all home meds for now - ?drug rash Would not be inappropriate to disposition the patient to e tertiary care center for further workup. She is currently clinically/hemodynamically stable for transport. Kasi Luis Pulm/Critical Care RECORDIST 7316 Critical Care Time/MDM Note Total Critical Care Time: 35 Critical Care Statement: The care of this patient involved high complexity decision making to prevent further life threatening deterioration of the patient 's condition and/or to evalute & treat vital organ system(s) failure or risk of failure.
[2017-04-25] MEDS: VANCOMYCIN 1,250 MG in DEXTROSE 5%-WATER - 250 ML IVPB SCH (10:57)
[2017-04-25] MEDS: MUPIROCIN 2% TOPICAL OINTMENT 22 GM TUBE NS SCH ×2 (10:58→22:00)
[2017-04-25] MEDS: CLINDAMYCIN 600MG PREMIX IVPB 50 ML IVPB SCH ×3 (11:05→20:33)
--- NOTE | 2017-04-25 11:12 | PN ---
Progress Note, Physician History of Present Illness: events noted from last night patient spiked a fever and became hypotensive patient currently on pressors - Current Medication List Current Medications: Active Medications Acetaminophen (Tylenol Oral Solution -) 650 mg PO Q6H PRN PRN Reason: FEVER OR PAIN Last Admin: 04/25/17 08:43 Dose: 650 mg Acetaminophen (Ofirmev Injection -) 1,000 mg IVPB Q6H PRN PRN Reason: FEVER OR PAIN Stop: 04/25/17 19:28 Last Admin: 04/25/17 01:32 Dose: 1,000 mg Albuterol/Ipratropium (Duoneb -) 1 amp NEB Q6H PRN PRN Reason: SHORTNESS OF BREATH Last Admin: 04/24/17 19:11 Dose: 1 amp Chlorhexidine Gluconate (Hibiclens For Decolonization -) 1 applic TP HS WAYNE Last Admin: 04/24/17 22:51 Dose: Not Given Emollient Ointment (Aquaphor -) 1 applic TP TID WAYNE Heparin Sodium (Porcine) (Heparin -) 5,000 unit IVPUSH PRN PRN PRN Reason: Heparin Last Admin: 04/24/17 23:00 Dose: 5,000 unit Heparin Sodium (Porcine) (Heparin -) 1,000 unit IVPUSH PRN PRN PRN Reason: Heparin Sodium Chloride (Normal Saline -) 1,000 mls @ 100 mls/hr IV ASDIR WAYNE Last Admin: 04/24/17 16:01 Dose: Not Given Meropenem 1 gm/ Dextrose 100 mls @ 200 mls/hr IVPB Q8H-IV WAYNE PRN Reason: Protocol Last Admin: 04/25/17 10:16 Dose: 200 mls/hr Vancomycin HCl 1,250 mg/ (Dextrose) 250 mls @ 166.667 mls/hr IVPB DAILY WAYNE PRN Reason: Protocol Last Admin: 04/25/17 10:57 Dose: 166.667 mls/hr Heparin Sodium (Porcine) 25, (000 unit/ Sodium Chloride) 500 mls @ 20 mls/hr IV TITR WAYNE; 1,000 UNIT/HR PRN Reason: Protocol Last Titration: 04/24/17 22:49 Dose: 1,150 unit/hr Phenylephrine HCl 20,000 mcg/ (Sodium Chloride) 250 mls @ 75 mls/hr IVPB ASDIR WAYNE; 100 MCG/MIN PRN Reason: Protocol Last Admin: 04/25/17 04:43 Dose: 37.5 mls/hr Clindamycin Phosphate (Cleocin 600 Mg Premix Ivpb -) 50 mls @ 100 mls/hr IVPB Q6H-IV WAYNE Last Admin: 04/25/17 11:05 Dose: 100 mls/hr Morphine Sulfate (Morphine Injection -) 4 mg IVPB Q6H PRN PRN Reason: PAIN Last Admin: 04/24/17 15:59 Dose: 4 mg Mupirocin (Bactroban 2% Ointment -) 1 applic NS BID WAYNE Stop: 04/28/17 21:59 Last Admin: 04/25/17 10:58 Dose: 1 applic - Objective Vital Signs: Vital Signs Temperature 99.2 F 04/25/17 10:00 Pulse Rate 100 H 04/25/17 10:32 Respiratory Rate 24 04/25/17 10:00 Blood Pressure 96/63 04/25/17 10:00 O2 Sat by Pulse Oximetry (%) 98 04/25/17 10:32 Constitutional: Yes: No Distress, Obese (morbid) Cardiovascular: Yes: Regular Rate and Rhythm, Tachycardia Respiratory: Yes: Regular, Poor Air Entry, Other Gastrointestinal: Yes: Normal Bowel Sounds, Soft Musculoskeletal: Yes: WNL Extremities: Yes: WNL Neurological: Yes: Alert Psychiatric: Yes: Alert Labs: CBC, BMP 04/25/17 08:10 04/25/17 08:10 INR, PTT INR 1.28 (0.82-1.09) H 04/23/17 11:40 Assessment/Plan - Problems (1) Cellulitis Code(s): L03.90 - CELLULITIS, UNSPECIFIED Qualifiers: Site of cellulitis: unspecified site Qualified Code(s): L03.90 - Cellulitis, unspecified (2) Desquamated skin Code(s): R23.4 - CHANGES IN SKIN TEXTURE (3) Sepsis Code(s): A41.9 - SEPSIS, UNSPECIFIED ORGANISM Qualifiers: Sepsis type: sepsis due to unspecified organism Qualified Code(s): A41.9 - Sepsis, unspecified organism (4) generalized rash 5 abd wall cellulitis morbid obesity sepsis septic shock plan continue abx hydration derm thought process noted added clinda to the mix continue current abx continue as per primary and icu if possible tertiary care center cc time 40 min
[2017-04-25] MEDS: HEPARIN - 25,000 UNIT in SODIUM CHLORIDE 495 ML IV SCH (11:30)
[2017-04-25] MEDS ORDERED: HEPARIN INFUSION - 500 ML IVPB ONE (12:19)
[2017-04-25] MEDS: HEPARIN NA (PORCINE) 5,000 UNITS/ML 1ML VIAL IVPUSH PRN ×2 (12:23→16:15)
[2017-04-25] MEDS: MINERAL OIL/PET HY-PHL TOPICAL OINTMENT 454 GM JAR TP SCH ×2 (14:17→22:00)
[2017-04-25 15:32] LABS: ANION GAP 4 (8-16); CALCIUM 7.4 mg/dL (8.5-10.1); CO2 32 mmol/L (21-32); CREATININE 0.8 mg/dL (0.55-1.02); GLUCOSE,RANDOM 118 mg/dL (74-106)
[2017-04-25] MEDS: ALBUTEROL SO4 2.5/IPRATROPIUM 0.5 INH SOL 3 ML VIAL.NEB. NEB PRN (18:38)
[2017-04-25] MEDS: SODIUM CHLORIDE 1,000 ML IV SCH (18:45)
[2017-04-25] MEDS: morphine CARPU-JECT 4 MG/1 ML DISP.SYRIN IVPB PRN (19:33)
[2017-04-25] MEDS: CHLORHEXIDINE GLUCONATE 4% CLEANSER FOR DECOLONIZATION TP SCH (22:00)
[2017-04-26] MEDS: ALBUTEROL SO4 2.5/IPRATROPIUM 0.5 INH SOL 3 ML VIAL.NEB. NEB PRN ×3 (00:08→17:45)
[2017-04-26] MEDS: ACETAMINOPHEN 650 MG/20.3 ML ORAL SOLUTION (CUPS) PO PRN (00:22)
[2017-04-26] MEDS: HEPARIN - 25,000 UNIT in SODIUM CHLORIDE 495 ML IV SCH ×3 (00:24→17:54)
[2017-04-26] MEDS: HEPARIN NA (PORCINE) 5,000 UNITS/ML 1ML VIAL IVPUSH PRN (00:25)
[2017-04-26] MEDS ORDERED: PT OWN MED DRAWER 7, Y5N ONE ×2 (01:07→19:04)
[2017-04-26] MEDS: MEROPENEM 1 GM in DEXTROSE 5%-WATER - 100 ML IVPB SCH ×3 (01:12→19:14)
[2017-04-26] MEDS: CLINDAMYCIN 600MG PREMIX IVPB 50 ML IVPB SCH ×4 (02:00→21:16)
[2017-04-26] MEDS: PHENYLEPHRINE HCL 20,000 MCG in SODIUM CHLORIDE 248 ML IVPB SCH (05:18)
[2017-04-26] MEDS ORDERED: PHENYLEPHRINE HCL 10 MG/1 ML SINGLE DOSE VIAL ONE (05:21)
[2017-04-26] MEDS: morphine CARPU-JECT 4 MG/1 ML DISP.SYRIN IVPB PRN (05:44)
[2017-04-26] MEDS: MINERAL OIL/PET HY-PHL TOPICAL OINTMENT 454 GM JAR TP SCH ×3 (05:46→21:18)
[2017-04-26 06:17] LABS: MCHC 28.7 g/dl (32.0-36.0); MEAN CELL VOLUME 69.4 fl (80-96); MEAN PLT VOLUME 8.4 fl (7.5-11.1); PLATELET COUNT 283 K/MM3 (134-434)
[2017-04-26 06:41] LABS: MCH 19.9 pg (25.7-33.7)
[2017-04-26 06:49] LABS: ALBUMIN 1.8 g/dl (3.4-5.0); ANION GAP 5 (8-16); CALCIUM 7.6 mg/dL (8.5-10.1); CO2 32 mmol/L (21-32); CREATININE 0.6 mg/dL (0.55-1.02); GLUCOSE,RANDOM 101 mg/dL (74-106); SGOT/AST 15 U/L (15-37); SGPT/ALT 19 U/L (12-78)
[2017-04-26 06:51] LABS: ALK PHOS 69 U/L (45-117); BILIRUBIN,TOTAL 0.6 mg/dL (0.2-1.0); TOT PROT 6.3 g/dl (6.4-8.2)
[2017-04-26 08:26] LABS: BASOPHIL 0.8 % (0-2.0); EOSINOPHIL 10.3 % (0-4.5); NEUTROPHILS 70.3 % (42.8-82.8)
[2017-04-26] MEDS ORDERED: HEPARIN NA (PORCINE) 5,000 UNITS/ML 1ML VIAL IVPUSH PRN ×2 (08:55)
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
[2017-04-26] MEDS: MUPIROCIN 2% TOPICAL OINTMENT 22 GM TUBE NS SCH ×2 (10:00→21:17)
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
[2017-04-26 10:33] LABS: VENOUS BLOOD GAS HCO3 31.8 meq/L (19-25)
[2017-04-26 10:34] LABS: VENOUS PH 7.26 (7.32-7.42)
[2017-04-26 10:35] LABS: TROPONIN I < 0.02 ng/ml (0.00-0.05)
--- NOTE | 2017-04-26 10:40 | PN ---
Progress Note (short form) - Note Progress Note: Patient seen and examined in the ICU. 24 HOUR EVENTS: -spiked ovennight, clinda restarted -remains on low dose pressors -mental status worsening, hypercapnea -[facility] working on bed -on Hep gtt but subtherapeutic, uptitrating, TTE ordered. Current Medications Acetaminophen (Tylenol Oral Solution -) 650 mg PO Q6H PRN PRN Reason: FEVER OR PAIN Last Admin: 04/26/17 00:22 Dose: 650 mg Albuterol/Ipratropium (Duoneb -) 1 amp NEB Q6H PRN PRN Reason: SHORTNESS OF BREATH Last Admin: 04/26/17 00:08 Dose: 1 amp Chlorhexidine Gluconate (Hibiclens For Decolonization -) 1 applic TP HS WAYNE Last Admin: 04/25/17 22:00 Dose: 1 applic Emollient Ointment (Aquaphor -) 1 applic TP TID WAYNE Last Admin: 04/26/17 05:46 Dose: 1 applic Heparin Sodium (Porcine) (Heparin -) 1,000 unit IVPUSH PRN PRN PRN Reason: Heparin Heparin Sodium (Porcine) (Heparin -) 5,000 unit IVPUSH PRN PRN PRN Reason: Heparin Sodium Chloride (Normal Saline -) 1,000 mls @ 100 mls/hr IV ASDIR WAYNE Last Admin: 04/25/17 18:45 Dose: 100 mls/hr Meropenem 1 gm/ Dextrose 100 mls @ 200 mls/hr IVPB Q8H-IV WAYNE PRN Reason: Protocol Last Admin: 04/26/17 01:12 Dose: 200 mls/hr Vancomycin HCl 1,250 mg/ (Dextrose) 250 mls @ 166.667 mls/hr IVPB DAILY WAYNE PRN Reason: Protocol Last Admin: 04/25/17 10:57 Dose: 166.667 mls/hr Phenylephrine HCl 20,000 mcg/ (Sodium Chloride) 250 mls @ 75 mls/hr IVPB ASDIR WAYNE; 100 MCG/MIN PRN Reason: Protocol Last Admin: 04/26/17 05:18 Dose: 18.75 mls/hr Clindamycin Phosphate (Cleocin 600 Mg Premix Ivpb -) 50 mls @ 100 mls/hr IVPB Q6H-IV WAYNE Last Admin: 04/26/17 02:00 Dose: 100 mls/hr Heparin Sodium (Porcine) 25, (000 unit/ Sodium Chloride) 500 mls @ 70 mls/hr IV TITR WAYNE; 3,500 UNIT/HR PRN Reason: Protocol Morphine Sulfate (Morphine Injection -) 4 mg IVPB Q6H PRN PRN Reason: PAIN Last Admin: 04/26/17 05:44 Dose: 4 mg Mupirocin (Bactroban 2% Ointment -) 1 applic NS BID WAYNE Stop: 04/28/17 21:59 Last Admin: 04/25/17 22:00 Dose: 1 applic Vital Signs Temp 99.7 F H 04/26/17 06:00 Pulse 103 H 04/26/17 06:00 Resp 27 H 04/26/17 06:00 BP 104/51 04/26/17 06:00 Pulse Ox 100 04/26/17 06:28 Intake & Output 04/25/17 04/25/17 04/26/17 11:59 23:59 11:59 Intake Total 3300 2349 1750 Output Total 800 1800 800 Balance 2500 549 950 Weight 197 kg 197.3 kg Intake: IV 2620 1749 1650 Normal Saline - 1,000 ml 2200 1000 1000 @ 100 mls/hr IV ASDIR WAYNE Rx#:[id number] Heparin - 25,000 Unit In 270 299 300 Normal Saline - 495 ml @ 1,000 UNIT/HR 20 mls/hr IV TITR WAYNE Rx#: [id number] Lactated Ringers Solution 150 1,000 ml @ 1000 mls/hr IV ONCE STA Rx#: [id number] Sam-Synephrine - 20,000 450 350 Mcg In Normal Saline - 248 ml @ 100 MCG/MIN 75 mls/hr IVPB ASDIR WAYNE Rx# :[id number] IVPB 200 600 50 Oral 480 50 Output: Urine 800 1800 800 Karu 800 1800 800 Other: Voiding Method Indwelling Catheter Indwelling Catheter Indwelling Catheter Bowel Movement No Yes # Bowel Movements 1 Weight Measurement Method Built in Bedscale Built in Bedscale Constitutional: Yes: somulent, withdrawals to pain Eyes: Yes: WNL, Conjunctiva Clear, EOM Intact, PERRL (no rash involvement of face/eyes) HENT: Yes: Atraumatic, Normocephalic Neck: Yes: Supple, Trachea Midline. No: Lymphadenopathy, Tenderness Cardiovascular: Yes: Regular Rate and Rhythm, S1, S2, Other (distant) Respiratory: clean anterior but very diminished Gastrointestinal: Yes: Soft, Abdomen, Obese ...Rectal Exam: Yes: WNL Renal/: Yes: Kaur Present. No: Vaginal Bleeding, Vaginal Discharge Breast(s): Yes: WNL Musculoskeletal: Yes: WNL Extremities: Yes: Erythema Edema: Yes Edema: LUE: 1+, RUE: 1+, LLE: 1+, RLE: 1+ Peripheral Pulses WNL: Yes Integumentary: Yes: Erythema, Skin Tear, Venous Stasis Changes, Other (diffuse macularpapular rash with desquamation of hand feet, some topical sloughing and significantly worse in folds and labial/perianal no necrosis, no bullae, no crepitus.). Some of the more severe areas of rash are slightly more hemmorhagic appearing in setting of Heparin GTT Neurological: with drawals to pain, opens eyes to voice. ...Motor Strength: WNL Psychiatric: N/a Laboratory Last Values WBC 18.0 K/mm3 (4.0-10.0) H 04/26/17 05:20 RBC 4.52 M/mm3 (3.60-5.2) 04/26/17 05:20 Hgb 9.0 GM/dL (10.7-15.3) L 04/26/17 05:20 Hct 31.3 % (32.4-45.2) L 04/26/17 05:20 MCV 69.4 fl (80-96) L 04/26/17 05:20 MCH 19.9 pg (25.7-33.7) L 04/26/17 05:20 MCHC 28.7 g/dl (32.0-36.0) L 04/26/17 05:20 RDW 22.0 % (11.6-15.6) H 04/26/17 05:20 Plt Count 283 K/MM3 (134-434) 04/26/17 05:20 MPV 8.4 fl (7.5-11.1) 04/26/17 05:20 Neutrophils % 70.3 % (42.8-82.8) 04/26/17 05:20 Lymphocytes % 13.4 % (8-40) 04/26/17 05:20 Monocytes % 5.2 % (3.8-10.2) 04/26/17 05:20 Eosinophils % 10.3 % (0-4.5) H 04/26/17 05:20 Basophils % 0.8 % (0-2.0) 04/26/17 05:20 Band Neutrophils 1.0 % (0-10) D 04/23/17 11:40 Metamyelocytes Cancelled 04/26/17 05:20 Myelocytes Cancelled 04/26/17 05:20 Promyelocytes Cancelled 04/26/17 05:20 Nucleated RBCs 1 % (0-0) H 04/23/17 11:40 Differential Comment Manual diff done 04/23/17 11:40 Hypersegmented Neuts Cancelled 04/26/17 05:20 Plasmacytoid Lymphs Cancelled 04/26/17 05:20 Reactive Lymphocytes Cancelled 04/26/17 05:20 Blast Cells Cancelled 04/26/17 05:20 Plasma Cells Cancelled 04/26/17 05:20 Other Cell Type Cancelled 04/26/17 05:20 Toxic Granulation Cancelled 04/26/17 05:20 Dohle Bodies Cancelled 04/26/17 05:20 Racquel Rods Cancelled 04/26/17 05:20 Platelet Estimate Adequate 04/23/17 11:40 Polychromasia 1+ 04/23/17 11:40 Hypochromic-Microcytic 2+ 04/23/17 11:40 Poikilocytosis Cancelled 04/26/17 05:20 Basophilic Stippling Cancelled 04/26/17 05:20 Anisocytosis 1+ 04/23/17 11:40 Microcytosis Few 04/23/17 11:40 Macrocytosis Few 04/23/17 11:40 Spherocytes Cancelled 04/26/17 05:20 Siderocytes Cancelled 04/26/17 05:20 Sickle Cells Cancelled 04/26/17 05:20 Target Cells Cancelled 04/26/17 05:20 Tear Drop Cells Few 04/23/17 11:40 Ovalocytes Cancelled 04/26/17 05:20 Stomatocytes Cancelled 04/26/17 05:20 Helmet Cells Cancelled 04/26/17 05:20 [place] Bodies Cancelled 04/26/17 05:20 Whit[place] Rings Cancelled 04/26/17 05:20 Kory Cells Cancelled 04/26/17 05:20 Acanthocytes (Spur) Cancelled 04/26/17 05:20 Rouleaux Cancelled 04/26/17 05:20 Fragmented RBCs Cancelled 04/26/17 05:20 Schistocytes Cancelled 04/26/17 05:20 Morphology Comment Slide scanned 04/23/17 11:40 INR 1.28 (0.82-1.09) H 04/23/17 11:40 PTT (Actin FS) 36.9 SECONDS (26.9-34.4) H 04/26/17 05:20 D-Dimer 1293 ng/ml (<200-235) H 04/24/17 10:15 VBG pH 7.34 (7.32-7.42) 04/23/17 11:21 POC VBG pCO2 55.9 mmHg (38-52) H 04/23/17 11:21 POC VBG pO2 58.8 mmHg (28-48) H D 04/23/17 11:21 Mixed VBG HCO3 29.5 meq/L (19-25) H 04/23/17 11:21 Sodium 137 mmol/L (136-145) 04/26/17 05:20 Potassium 5.4 mmol/L (3.5-5.1) H 04/26/17 05:20 Chloride 100 mmol/L (98-107) 04/26/17 05:20 Carbon Dioxide 32 mmol/L (21-32) 04/26/17 05:20 Anion Gap 5 (8-16) L 04/26/17 05:20 BUN 11 mg/dL (7-18) D 04/26/17 05:20 Creatinine 0.6 mg/dL (0.55-1.02) D 04/26/17 05:20 Creat Clearance w eGFR > 60 (>60) 04/26/17 05:20 POC Glucometer 152.99131 UNITS (()) 04/25/17 16:34 Random Glucose 101 mg/dL (74-106) 04/26/17 05:20 Hemoglobin A1c % 7.6 % (4.8-6.0) H 04/24/17 05:15 Lactic Acid 1.0 mmol/L (0.4-2.0) 04/24/17 05:15 Calcium 7.6 mg/dL (8.5-10.1) L 04/26/17 05:20 Phosphorus 4.1 mg/dL (2.5-4.9) 04/24/17 05:15 Magnesium 2.0 mg/dL (1.8-2.4) 04/24/17 05:15 Total Bilirubin 0.6 mg/dL (0.2-1.0) D 04/26/17 05:20 AST 15 U/L (15-37) D 04/26/17 05:20 ALT 19 U/L (12-78) D 04/26/17 05:20 Alkaline Phosphatase 69 U/L (45-117) 04/26/17 05:20 Creatine Kinase 160 IU/L (26-192) D 04/23/17 11:40 Creatine Kinase Index 0.8 % (0.0-5.0) 04/23/17 11:40 CK-MB (CK-2) 1.225 ng/ml (0.5-3.6) 04/23/17 11:40 Troponin I < 0.02 ng/ml (0.00-0.05) 04/23/17 11:40 B-Natriuretic Peptide Cancelled 04/26/17 06:00 Total Protein 6.3 g/dl (6.4-8.2) L 04/26/17 05:20 Albumin 1.8 g/dl (3.4-5.0) L 04/26/17 05:20 Urine Color Straw 04/25/17 07:30 Urine Appearance Turbid 04/25/17 07:30 Urine pH 5.0 (5.0-8.0) 04/25/17 07:30 Ur Specific [place] 1.015 (1.005-1.025) 04/25/17 07:30 Urine Protein Negative (NEGATIVE) 04/25/17 07:30 Urine Glucose (UA) Negative (NEGATIVE) 04/25/17 07:30 Urine Ketones Negative (NEGATIVE) 04/25/17 07:30 Urine Blood 2+ (NEGATIVE) H 04/25/17 07:30 Urine Nitrite Negative (NEGATIVE) 04/25/17 07:30 Urine Bilirubin Negative (NEGATIVE) 04/25/17 07:30 Urine Urobilinogen Negative mg/dL (0.2-1.0) 04/25/17 07:30 Ur Leukocyte Esterase Negative (NEGATIVE) 04/25/17 07:30 Urine RBC 17 /hpf (0-3) 04/25/17 07:30 Urine WBC 1 /hpf (3-5) 04/25/17 07:30 Uric Acid Crystals Many /hpf (NONE SEEN) 04/25/17 07:30 Fluid Tot Cell Count Cancelled 04/26/17 05:20 Stool Occult Blood Negative (NEGATIVE) 04/25/17 15:58 Blood Type A POSITIVE 04/23/17 11:40 Antibody Screen Negative 04/23/17 11:40 Microbiology 04/25/17 08:10 Blood - Peripheral Venous Blood Culture - Preliminary NO GROWTH OBTAINED AFTER 24 HOURS, INCUBATION TO CONTINUE FOR 4 DAYS. 04/25/17 08:10 Blood - Peripheral Venous Blood Culture - Preliminary NO GROWTH OBTAINED AFTER 24 HOURS, INCUBATION TO CONTINUE FOR 4 DAYS. 04/23/17 12:10 Blood - Peripheral Venous Blood Culture - Preliminary NO GROWTH OBTAINED AFTER 48 HOURS, INCUBATION TO CONTINUE FOR 3 DAYS. 04/23/17 11:40 Blood - Peripheral Venous Blood Culture - Preliminary NO GROWTH OBTAINED AFTER 48 HOURS, INCUBATION TO CONTINUE FOR 3 DAYS. 04/23/17 11:40 Urine - Urine Clean Catch Urine Culture - Final NO GROWTH OBTAINED Problem List - Problems (1) Cellulitis Code(s): L03.90 - CELLULITIS, UNSPECIFIED Qualifiers: Site of cellulitis: unspecified site Qualified Code(s): L03.90 - Cellulitis, unspecified (2) Desquamated skin Code(s): R23.4 - CHANGES IN SKIN TEXTURE (3) Sepsis Code(s): A41.9 - SEPSIS, UNSPECIFIED ORGANISM Qualifiers: Sepsis type: sepsis due to unspecified organism Qualified Code(s): A41.9 - Sepsis, unspecified organism (4) Drug-induced skin rash Code(s): L27.0 - GEN SKIN ERUPTION DUE TO DRUGS AND MEDS TAKEN INTERNALLY Assessment/Plan Etiology of skin lesions are unclear -> Appears that only the superficial layers are affected. -> Dermatology consult following, bx done, awaiting path IVF ABX as per ID vasopressors for MAP 60-65 on hep gtt out of concern for PE, f/u BNP, Trop O2 as needed BD TX PRN Likely has LYLY/OSH - nocturnal and PRN BiPAP , repeat ABG if worsening mental status Hold all home meds for now - ?drug rash Would not be inappropriate to disposition the patient to e tertiary care center for further workup. ? tx to [facility] Jacob Palacios ACN [id number] Problem List - Problems (1) Cellulitis Code(s): L03.90 - CELLULITIS, UNSPECIFIED Qualifiers: Site of cellulitis: unspecified site Qualified Code(s): L03.90 - Cellulitis, unspecified (2) Desquamated skin Code(s): R23.4 - CHANGES IN SKIN TEXTURE (3) Sepsis Code(s): A41.9 - SEPSIS, UNSPECIFIED ORGANISM Qualifiers: Sepsis type: sepsis due to unspecified organism Qualified Code(s): A41.9 - Sepsis, unspecified organism (4) Drug-induced skin rash Code(s): L27.0 - GEN SKIN ERUPTION DUE TO DRUGS AND MEDS TAKEN INTERNALLY
[2017-04-26] MEDS ORDERED: FUROSEMIDE 40 MG/4 ML INJECTABLE VIAL IVPUSH ONE (11:15)
[2017-04-26] MEDS: ACETAMINOPHEN 1000 MG/100 ML VIAL (NON FORMULARY) IVPB PRN ×2 (12:00→19:25)
[2017-04-26 12:15] LABS: ARTERIAL BLOOD GAS BASE EXCESS 5.3 meq/l (-2-2); ARTERIAL BLOOD GAS HCO3 32.1 meq/L (22-26)
[2017-04-26 12:17] LABS: ALLENS TEST POSITIVE; ART PUNCT SITE RIGHT RADIAL; PT. ON O2? YES
[2017-04-26 12:18] LABS: LPM/O2% 40%; TYPE OF O2 OT
[2017-04-26 12:19] LABS: ARTERIAL BLOOD GAS PO2 98.3 mmHg (80-100); PT'S TEMP 102.3
[2017-04-26 12:20] LABS: MECH. VENT. BIPAP; VENT RATE 10; VT/PRESS 15/8
--- NOTE | 2017-04-26 13:03 | PN ---
Progress Note, Physician History of Present Illness: patient continues to spike of fever continues to do poorly patient with resp failure now on bipap was diuresed today mental status responding but getting confused continues to be on pressor support - Current Medication List Current Medications: Active Medications Acetaminophen (Tylenol Oral Solution -) 650 mg PO Q6H PRN PRN Reason: FEVER OR PAIN Last Admin: 04/26/17 00:22 Dose: 650 mg Acetaminophen (Ofirmev Injection -) 1,000 mg IVPB Q6H PRN PRN Reason: FEVER OR PAIN Stop: 04/27/17 06:24 Albuterol/Ipratropium (Duoneb -) 1 amp NEB Q6H PRN PRN Reason: SHORTNESS OF BREATH Last Admin: 04/26/17 10:15 Dose: 1 amp Chlorhexidine Gluconate (Hibiclens For Decolonization -) 1 applic TP HS WAYNE Last Admin: 04/25/17 22:00 Dose: 1 applic Emollient Ointment (Aquaphor -) 1 applic TP TID WAYNE Last Admin: 04/26/17 05:46 Dose: 1 applic Heparin Sodium (Porcine) (Heparin -) 1,000 unit IVPUSH PRN PRN PRN Reason: Heparin Heparin Sodium (Porcine) (Heparin -) 5,000 unit IVPUSH PRN PRN PRN Reason: Heparin Meropenem 1 gm/ Dextrose 100 mls @ 200 mls/hr IVPB Q8H-IV WAYNE PRN Reason: Protocol Last Admin: 04/26/17 01:12 Dose: 200 mls/hr Vancomycin HCl 1,250 mg/ (Dextrose) 250 mls @ 166.667 mls/hr IVPB DAILY WAYNE PRN Reason: Protocol Last Admin: 04/25/17 10:57 Dose: 166.667 mls/hr Phenylephrine HCl 20,000 mcg/ (Sodium Chloride) 250 mls @ 75 mls/hr IVPB ASDIR WAYNE; 100 MCG/MIN PRN Reason: Protocol Last Admin: 04/26/17 05:18 Dose: 18.75 mls/hr Clindamycin Phosphate (Cleocin 600 Mg Premix Ivpb -) 50 mls @ 100 mls/hr IVPB Q6H-IV WAYNE Last Admin: 04/26/17 02:00 Dose: 100 mls/hr Heparin Sodium (Porcine) 25, (000 unit/ Sodium Chloride) 500 mls @ 70 mls/hr IV TITR WAYNE; 3,500 UNIT/HR PRN Reason: Protocol Morphine Sulfate (Morphine Injection -) 4 mg IVPB Q6H PRN PRN Reason: PAIN Last Admin: 04/26/17 05:44 Dose: 4 mg Mupirocin (Bactroban 2% Ointment -) 1 applic NS BID WAYNE Stop: 04/28/17 21:59 Last Admin: 04/25/17 22:00 Dose: 1 applic - Objective Vital Signs: Vital Signs Temperature 99.7 F H 04/26/17 06:00 Pulse Rate 106 H 04/26/17 10:15 Respiratory Rate 27 H 04/26/17 06:00 Blood Pressure 104/51 04/26/17 06:00 O2 Sat by Pulse Oximetry (%) 100 04/26/17 12:23 Constitutional: Yes: Obese (morbid obesity), Other HENT: Yes: Atraumatic Cardiovascular: Yes: Regular Rate and Rhythm Respiratory: Yes: On BiPap, Poor Air Entry Gastrointestinal: Yes: Soft, Other Genitourinary: Yes: Kaur Present Musculoskeletal: Yes: Other Extremities: Yes: Other Edema: LLE: 2+, RLE: 2+ Integumentary: Yes: Other ( Erythema, Skin Tear, Venous Stasis Changes, diffuse macularpapular rash with desquamation of hand feet, topical sloughing and significantly worse in folds and labial/perianal no necrosis, no bullae, no crepitus..) Neurological: Yes: Alert, Other Psychiatric: Yes: Other Labs: CBC, BMP 04/26/17 05:20 04/26/17 05:20 INR, PTT INR 1.28 (0.82-1.09) H 04/23/17 11:40 Assessment/Plan - Problems (1) Cellulitis Code(s): L03.90 - CELLULITIS, UNSPECIFIED Qualifiers: Site of cellulitis: unspecified site Qualified Code(s): L03.90 - Cellulitis, unspecified (2) Desquamated skin Code(s): R23.4 - CHANGES IN SKIN TEXTURE (3) Sepsis Code(s): A41.9 - SEPSIS, UNSPECIFIED ORGANISM Qualifiers: Sepsis type: sepsis due to unspecified organism Qualified Code(s): A41.9 - Sepsis, unspecified organism (4) generalized rash 5 abd wall cellulitis morbid obesity sepsis septic shock plan continue abx hydration close monitoring resp supprt will add antifungal rest as per icu cc time 40 min
[2017-04-26] MEDS ORDERED: FLUCONAZOLE 400 MG/D5W 200 ML IVPB ONE (13:45)
[2017-04-26] MEDS ORDERED: VANCOMYCIN 1,500 MG in DEXTROSE 5%-WATER - 500 ML IVPB SCH (14:00)
[2017-04-26 16:15] LABS: ALBUMIN 1.7 g/dl (3.4-5.0); ALK PHOS 63 U/L (45-117); ANION GAP 0 (8-16); BILIRUBIN,TOTAL 0.3 mg/dL (0.2-1.0); CALCIUM 7.5 mg/dL (8.5-10.1); CO2 35 mmol/L (21-32); CREATININE 0.6 mg/dL (0.55-1.02); GLUCOSE,RANDOM 100 mg/dL (74-106); SGOT/AST 16 U/L (15-37); SGPT/ALT 16 U/L (12-78); TOT PROT 6.1 g/dl (6.4-8.2)
--- NOTE | 2017-04-26 18:02 | EKG ---
Test Reason : Blood Pressure : / mmHG Vent. Rate : 107 BPM Atrial Rate : 107 BPM P-R Int : 140 ms QRS Dur : 084 ms QT Int : 296 ms P-R-T Axes : 061 -01 048 degrees QTc Int : 395 ms SINUS TACHYCARDIA OTHERWISE NORMAL ECG WHEN COMPARED WITH ECG OF 23-APR-2017 12:19, NO SIGNIFICANT CHANGE WAS FOUND Confirmed by KELLY HILL MD ([id number]) on 04/26/2017 6:01:41 PM Referred By: Reagan FOLEY Confirmed By:KELLY HILL MD
--- NOTE | 2017-04-26 18:05 | CONSULT ---
Consult Consult Specialty:: Hematology-Oncology Referred by:: Dr. Patricia Hughes Reason for Consultation:: Possibility of PE - History of Present Illness Chief Complaint: rash / SOB History of Present Illness: 61 y/o F , morbidly obese, does not ambulate well and does not leave her apt., developed a rash within a week prior to her admission which began in the back of her legs then spread to trunk , ext. , intertriginous regions , then associated w fevers, progressive SOB ; pt admitted for a generalized desquamating cellulitis ,started on broad spectrum ab's ; pt also w SOB,hypoxia , low BP requiring pressor , high BNP 1960 ,low albumin 1.8,anemia Hgb 9.5 MCV 69 WBC 20K mostly polys , Eos 17,plates 257K ; LFT's and creat nl ; CXR neg initially but then showed congestive/infiltrative changes ; pt on O2 mask ; pt overall edematous , doppler LE's suboptimal ,could not visualize well L sup veins and R popliteal v. ; of note, pt had hx vascular surgery here R lower ext by Dr Mariscal. Pt started on heparin drip since PE could not be ruled out since pt cannot fit in CT scanner ; she denies BACA's , focal weakness, new visual complaints.She denies any recent leg pains. Last PTT 90 but heparin dose lowered.No signs of bleeding pheomena . Pt's spouse reports pt was told recently she may have an iron def. anemia ; she has no hx of endoscopies but had an abdominal hernia operation at [facility] last year ? patial colectomy .Her spouse reports occ. BRBPR at end of BM and occ rare menelotic stool. 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: Alzheimer's, CVA, Dementia, Migraine, Multiple Sclerosis, Peripheral Neuropathy, Parkinson's, Seizure, Syncope, TIA, Vertigo, Other Cardio/Vascular: Yes: HTN Pulmonary: Yes: Asthma, Pneumonia Gastrointestinal: No: Ascites, Cancer, Constipation, Crohn's Disease, Diverticulitis, Diverticulosis, Esophageal Varices, Gastritis, GERD, GI Bleed, Hemorrhoids, Hiatal Hernia, Inflamatory Bowel Disease, Irritable Bowel Disease, Pancreatitis, Peptic Ulcer Disease, Ulcerative Colitis, Other Hepatobiliary: No: Cirrhosis, Cholelithiasis, Cholecystitis, Choledocholithiasis , Hepatitis A, Hepatitis B, Hepatitis C, Other Renal/: No: Renal Failure, Renal Inusuff, BPH, Cancer, Hematuria, Hemodialysis , Neurogenic Bladder, Renal Calculi, UTI, Other Reproductive: Yes: Fibroids ...: No Heme/Onc: Yes: Anemia. No: B12 Deficiency, Bleeding Disorder, Cancer, Current Chemotherapy, Current Radiation Therapy, Hemochromatosis, Hypercoaguable State, Myeloproliferative Synd, Sickle Cell Disease, Sickle Cell Trait, Thrombocytopenia, Other Psych: Yes: Depression Musculoskeletal: No: Bursitis, Chronic low back pain, Hemiparesis, Hemiplegia, Osteoarthritis, Paraplegia, Other Rheumatology: No: Fibromyalgia, Gout, Lupus, Rheumatoid Arthritis, Sarcoidosis, Vasculitis, Other ENT: No: Allergic Rhinitis, Sinusitis, Other Endocrine: No: Gilchrist's Disease, Bennington's Disease, Diabetes Insipidus, Diabetes Mellitus, Hyperparathyroidism, Hyperthyroidism, Hypothyroidism, Osteopenia, SIADH, Other Dermatology: No: Basal Cell, Cellulitis, Eczema, Melanoma, Psoriasis, Squamous Cell, Other - Past Surgical History Past Surgical History: Yes: Colectomy, Hernia Repair Additional Surgical History: - Alcohol/Substance Use Hx Alcohol Use: No History of Substance Use: reports: None - Smoking History Smoking history: Former smoker Have you smoked in the past 12 months: No Aproximately how many cigarettes per day: 0 If you are a former smoker, when did you quit?: 1979 - Social History Usual Living Arrangement: With Spouse ADL: Support Services Occupation: unemployed History of Recent Travel: No Home Medications - Allergies Allergies/Adverse Reactions: Allergies Allergy/AdvReac Type Severity Reaction Status Date / Time piperacillin sodium Allergy Rash Verified 04/23/17 10:50 [From Zosyn] tazobactam sodium Allergy Rash Verified 04/23/17 10:50 [From Zosyn] - Home Medications Home Medications: Ambulatory Orders Acetaminophen [Tylenol] 975 mg PO Q6H PRN 02/22/16 Albuterol 2.5/Ipratropium 0.5 [Duoneb -] 1 neb NEB Q6H 02/22/16 Amitriptyline HCl [Elavil -] 10 mg PO HS 02/22/16 Fluticasone/Salmeterol [Advair 250-50 Diskus] 1 each IH BID 02/22/16 Furosemide [Lasix -] 40 mg PO DAILY 02/22/16 Gabapentin [Neurontin] 300 mg PO Q8H 02/22/16 Heparin - 5,000 unit SQ TID 02/22/16 Mag Hydrox/Al Hydrox/Simeth [Mylanta Oral Suspension -] 30 ml PO Q6H PRN Pantoprazole Sodium [Protonix] 40 mg PO DAILY 02/22/16 Polyvinyl Alcohol [Artificial Tears] 15 ml OD BID 02/22/16 Hydrocortisone 1% Ointment [Hytone 1% Ointment -] 1 applic TP Q6H PRN #0 tube Hydroxyzine HCl [Atarax -] 25 mg PO Q8H PRN #0 tablet 02/29/16 Lisinopril [Prinivil] 20 mg PO BID tablet 02/29/16 Nitrofurantoin Macrocrystal [Macrodantin -] 50 mg PO Q6HPO 5 Days 02/29/16 Nystatin Ointment [Mycostatin Ointment -] 1 applic TP BID applic 02/29/16 Nystatin Powder [Nystop Powder -] 1 applic TP DAILY applic 02/29/16 Phenazopyridine HCl [Pyridium -] 100 mg PO TID tablet 02/29/16 Vitamin A & D Top Oint - 1 applic TP BID tube 02/29/16 Family Disease History - Family Disease History Family Disease History: Heart Disease: Father Review of Systems - Review of Systems Constitutional: reports: Fever, Loss of Appetite, Weakness Eyes: reports: No Symptoms HENT: reports: No Symptoms Neck: reports: No Symptoms Cardiovascular: reports: Shortness of Breath Respiratory: reports: Exercise Intolerance, SOB on Exertion Gastrointestinal: reports: Other (gives hx of sporadic BRBPR and melena in recent past) Genitourinary: denies: No Symptoms, Burning, Discharge, Dysuria, Flank Pain, Frequency, Hematuria, Incontinence, Lesions, Menses, Pain, Testicular Mass, Testicular Pain, Testicular Swelling, Urgency, Vaginal Bleeding, Other Breasts: reports: No Symptoms Reported (no mammogram), Other (no mammography) Musculoskeletal: denies: No Symptoms, Back Pain, Crepitus, Decreased ROM, Extremity Pain, Joint Pain, Joint Swelling, Muscle Pain, Muscle Cramps, Muscle Weakness, Other Integumentary: reports: Change in Color, Erythema, Pruritis, Rash Neurological: reports: No Symptoms Endocrine: reports: Unexplained Weight Gain. denies: No Symptoms, Excessive Sweating, Flushing, Increased Hunger, Increased Thirst, Intolerance to Cold, Intolerance to Heat, Unexplained Weight Loss, Other Hematology/Lymphatic: reports: No Symptoms Psychiatric: reports: Depression Physical Exam Vital Signs: Vital Signs Temperature 99.7 F H 04/26/17 16:45 Pulse Rate 109 H 04/26/17 16:45 Respiratory Rate 28 H 04/26/17 16:45 Blood Pressure 105/83 04/26/17 16:45 O2 Sat by Pulse Oximetry (%) 100 04/26/17 16:45 Constitutional: Yes: Calm, Mild Distress, Obese Eyes: Yes: WNL HENT: Yes: WNL, Atraumatic, Normocephalic Neck: Yes: WNL, Supple, Trachea Midline Cardiovascular: Yes: WNL, Regular Rate and Rhythm Respiratory: Yes: WNL, Regular, CTA Bilaterally Gastrointestinal: Yes: WNL, Normal Bowel Sounds, Soft, Abdomen, Obese. No: Ascites, Distention, Hematemesis, Hemorrhoids, Hepatomegaly, Hernia, Hyperactive Bowel Sounds, Hypoactive Bowel Sounds, Melena, Palpable Mass, Pulsatile Mass, Rectal Bleeding, Splenomegaly, Tenderness, Tenderness, Epigastrium, Tenderness, Rebound, Vomiting, Other Musculoskeletal: Yes: WNL Extremities: Yes: Erythema. No: WNL, Amputation, Calf Tenderness, Cold, Cool, Cyanosis, Deformity, Delayed Capillary Refill, External Rotation, Internal Rotation, Pallor, Shortened, Other Edema: LLE: 1+, RLE: 1+ Integumentary: Yes: Erythema, Other (desquamating diffuse rash on trunk/ext) Wound/Incision: Yes: Other (sutures on lower L abdominal wall) Neurological: Yes: WNL, Alert, Oriented Labs: CBC, BMP 04/26/17 05:20 04/26/17 15:35 Problem List - Problems (1) Microcytic anemia Code(s): D50.9 - IRON DEFICIENCY ANEMIA, UNSPECIFIED (2) D-dimer, elevated Code(s): R79.89 - OTHER SPECIFIED ABNORMAL FINDINGS OF BLOOD CHEMISTRY Assessment/Plan 61 y/o F , morbidly obese, w severe cellulitis on empiric ab's , high D-dimer , suboptimal doppler, hx vein surgery R leg , evidence of a microcytic anemia prob iron def. but would have to r/o a hemoglobinopathy . 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 The benefits outweigh risks in my view ; to watch for GI bleeding , BACA's ,other bleeding phenomena. Suggest anemia w/u , iron studies , LDH,retic . Echocardiogram .; consider w/u for hypoalbuminemia ? nephrotic sx.
--- NOTE | 2017-04-26 20:13 | HOSP ---
Subjective - Review of Symptoms Events since last encounter: Discussed case with Dr. Craig who reviewed echocardiogram with Dr. Sykes in comparison with old. The RV strain appears to be unchanged from echo 09/2015 and the septal bowing is only slightly increased, likely related to volume overload. TR is slightly improved from prior.. The aortic valve appears to be calcified and is unchanged from Echo done on 09/2015. No need for urgent angiography at this time. Pt accepted for transfer at [facility] as per [facility], awaiting bed. Physical Examination Vital Signs: Vital Signs Temperature 99.7 F H 04/26/17 16:45 Pulse Rate 104 H 04/26/17 18:00 Respiratory Rate 26 H 04/26/17 18:00 Blood Pressure 110/57 04/26/17 18:00 O2 Sat by Pulse Oximetry (%) 98 04/26/17 19:10 Labs: CBC, BMP 04/26/17 05:20 04/26/17 15:35
[2017-04-26] MEDS: CHLORHEXIDINE GLUCONATE 4% CLEANSER FOR DECOLONIZATION TP SCH (21:17)
[2017-04-26] MEDS ORDERED: SODIUM CHLORIDE 1,000 ML IV STA (22:40)
[2017-04-27] MEDS ORDERED: PHENYLEPHRINE HCL 10 MG/1 ML SINGLE DOSE VIAL ONE ×3 (00:15→23:07)
[2017-04-27 00:57] LABS: ANION GAP 5 (8-16); CALCIUM 7.5 mg/dL (8.5-10.1); CO2 31 mmol/L (21-32); CREATININE 0.6 mg/dL (0.55-1.02); GLUCOSE,RANDOM 115 mg/dL (74-106)
[2017-04-27] MEDS: MEROPENEM 1 GM in DEXTROSE 5%-WATER - 100 ML IVPB SCH ×3 (02:00→19:47)
[2017-04-27] MEDS: CLINDAMYCIN 600MG PREMIX IVPB 50 ML IVPB SCH ×4 (03:00→20:52)
[2017-04-27] MEDS: VANCOMYCIN 1,500 MG in DEXTROSE 5%-WATER - 500 ML IVPB SCH ×2 (04:00→15:00)
[2017-04-27] MEDS: ACETAMINOPHEN 1000 MG/100 ML VIAL (NON FORMULARY) IVPB PRN (04:07)
[2017-04-27 06:08] LABS: BASOPHIL 0.8 % (0-2.0); EOSINOPHIL 13.7 % (0-4.5); MCHC 28.8 g/dl (32.0-36.0); MEAN PLT VOLUME 8.9 fl (7.5-11.1); NEUTROPHILS 70.3 % (42.8-82.8); PLATELET COUNT 281 K/MM3 (134-434); RDW 22.3 % (11.6-15.6)
[2017-04-27] MEDS ORDERED: SODIUM POLYSTYRENE SULFONATE 15 GM/60 ML BOTTLE PO ONE (06:08)
[2017-04-27 06:19] LABS: MCH 19.9 pg (25.7-33.7)
[2017-04-27 06:39] LABS: ALBUMIN 1.6 g/dl (3.4-5.0); ANION GAP 5 (8-16); BILIRUBIN,TOTAL 0.3 mg/dL (0.2-1.0); CALCIUM 7.6 mg/dL (8.5-10.1); CO2 33 mmol/L (21-32); CREATININE 0.6 mg/dL (0.55-1.02); GLUCOSE,RANDOM 95 mg/dL (74-106); MAGNESIUM 1.9 mg/dL (1.8-2.4); PHOSPHOROUS 2.8 mg/dL (2.5-4.9); SGOT/AST 19 U/L (15-37); SGPT/ALT 17 U/L (12-78); TOT PROT 6.2 g/dl (6.4-8.2)
[2017-04-27 06:40] LABS: ALK PHOS 69 U/L (45-117)
[2017-04-27] MEDS: PHENYLEPHRINE HCL 20,000 MCG in SODIUM CHLORIDE 248 ML IVPB SCH ×2 (06:43→13:21)
[2017-04-27] MEDS: MINERAL OIL/PET HY-PHL TOPICAL OINTMENT 454 GM JAR TP SCH ×3 (06:50→21:33)
[2017-04-27 07:22] LABS: ANISOCYTOSIS 2+; HYPOCHROMIA 3+; MICROCYTOSIS 2+
[2017-04-27] MEDS ORDERED: ONDANSETRON 4 MG/2 ML VIAL IVPUSH PRN (07:38)
--- NOTE | 2017-04-27 09:12 | PN ---
Progress Note, Physician History of Present Illness: Patient is a 61 year old morbidly obese female with a Zosyn allergy and history of HTN, CHF, asthma, and a previous admission for urinary sepsis who is presenting with a diffuse, painful and rapidly progressing rash and increasing shortness of breath. Patient's first noticed peeling along the backs of the patient's calves 4-5 days ago. Initially it was dry, flaky and extremely itchy and would peel off when her would clean her. Three days ago, it became red and painful and started to rapidly spread down her legs , around her abdomen and up her arms and chest until it had spread over the majority of her body. The palms of her hands and the soles of her feet started to peel and the skin on the backs of the legs started splitting and became very painful along the backs of both legs from the buttocks to the knee. Today the patient called EMS after developing a fever and starting to feel short of breath. Denies new medication, sick contacts. Endorses fever, chills, feeling light headed, dry throat, voice change, pruritus, abdominal pain, reduced urination, increased thirst and a 40 lb weight gain over the last month. Patient is a 06/08 survivor presenting with her . - Current Medication List Current Medications: Active Medications Acetaminophen (Tylenol Oral Solution -) 650 mg PO Q6H PRN PRN Reason: FEVER OR PAIN Last Admin: 04/26/17 00:22 Dose: 650 mg Albuterol/Ipratropium (Duoneb -) 1 amp NEB Q6H PRN PRN Reason: SHORTNESS OF BREATH Last Admin: 04/26/17 17:45 Dose: 1 amp Chlorhexidine Gluconate (Hibiclens For Decolonization -) 1 applic TP HS WAYNE Last Admin: 04/26/17 21:17 Dose: 1 applic Emollient Ointment (Aquaphor -) 1 applic TP TID WAYNE Last Admin: 04/27/17 06:50 Dose: 1 applic Heparin Sodium (Porcine) (Heparin -) 1,000 unit IVPUSH PRN PRN PRN Reason: Heparin Heparin Sodium (Porcine) (Heparin -) 5,000 unit IVPUSH PRN PRN PRN Reason: Heparin Last Admin: 04/26/17 08:30 Dose: 5,000 unit Meropenem 1 gm/ Dextrose 100 mls @ 200 mls/hr IVPB Q8H-IV WAYNE PRN Reason: Protocol Last Admin: 04/27/17 02:00 Dose: 200 mls/hr Phenylephrine HCl 20,000 mcg/ (Sodium Chloride) 250 mls @ 75 mls/hr IVPB ASDIR WAYNE; 100 MCG/MIN PRN Reason: Protocol Last Admin: 04/27/17 06:43 Dose: 37.5 mls/hr Clindamycin Phosphate (Cleocin 600 Mg Premix Ivpb -) 50 mls @ 100 mls/hr IVPB Q6H-IV WAYNE Last Admin: 04/27/17 03:00 Dose: 100 mls/hr Heparin Sodium (Porcine) 25, (000 unit/ Sodium Chloride) 500 mls @ 70 mls/hr IV TITR WAYNE; 3,500 UNIT/HR PRN Reason: Protocol Last Admin: 04/26/17 17:54 Dose: 66 mls/hr Vancomycin HCl 1,500 mg/ (Dextrose) 500 mls @ 250 mls/hr IVPB BID@0300,1500 WAYNE PRN Reason: Protocol Last Admin: 04/27/17 04:00 Dose: 250 mls/hr Mupirocin (Bactroban 2% Ointment -) 1 applic NS BID WAYNE Stop: 04/28/17 21:59 Last Admin: 04/26/17 21:17 Dose: 1 applic Ondansetron HCl (Zofran Injection) 4 mg IVPUSH Q6H PRN PRN Reason: NAUSEA AND/OR VOMITING - Objective Vital Signs: Vital Signs Temperature 100.9 F H 04/27/17 06:00 Pulse Rate 112 H 04/27/17 06:00 Respiratory Rate 32 H 04/27/17 06:00 Blood Pressure 98/53 04/27/17 06:43 O2 Sat by Pulse Oximetry (%) 98 04/26/17 21:00 Eyes: Yes: WNL, Conjunctiva Clear, EOM Intact HENT: Yes: WNL, Atraumatic, Normocephalic Neck: Yes: WNL, Supple, Trachea Midline Cardiovascular: Yes: WNL, Regular Rate and Rhythm Respiratory: Yes: WNL, Regular, CTA Bilaterally Gastrointestinal: Yes: WNL, Normal Bowel Sounds Genitourinary: Yes: WNL Musculoskeletal: Yes: WNL Extremities: Yes: Erythema Edema: Yes Integumentary: Yes: WNL Neurological: Yes: WNL, Alert, Oriented ...Motor Strength: WNL Psychiatric: Yes: WNL Labs: CBC, BMP 04/27/17 05:15 04/27/17 05:15 INR, PTT INR 1.28 (0.82-1.09) H 04/23/17 11:40 Laboratory Tests 04/23/17 04/23/17 04/23/17 11:21 11:40 11:40 WBC 20.3 H RBC 4.76 Hgb 9.5 L D Hct 32.8 MCV 69.0 L D MCH 19.9 L MCHC 28.9 L RDW 21.2 H D Plt Count 257 D MPV 9.0 Neutrophils % 61.0 Lymphocytes % 9.0 D Monocytes % 11.0 H Eosinophils % 17.0 H D Basophils % 1.0 D Band Neutrophils 1.0 D Metamyelocytes Myelocytes Promyelocytes Nucleated RBCs 1 H Differential Comment Manual diff done Hypersegmented Neuts Plasmacytoid Lymphs Reactive Lymphocytes Blast Cells Plasma Cells Other Cell Type Toxic Granulation Dohle Bodies Racquel Rods Platelet Estimate Adequate Polychromasia 1+ Hypochromic-Microcytic 2+ Poikilocytosis Basophilic Stippling Anisocytosis 1+ Microcytosis Few Macrocytosis Few Spherocytes Siderocytes Sickle Cells Target Cells Tear Drop Cells Few Ovalocytes Stomatocytes Helmet Cells [place] Bodies [place] Rings Kory Cells Acanthocytes (Spur) Rouleaux Fragmented RBCs Schistocytes Morphology Comment Slide scanned Retic Count INR 1.28 H PTT (Actin FS) 28.3 D-Dimer Puncture Site Patient Temperature ABG pH ABG pCO2 at Pt Temp ABG pO2 at Pt Temp ABG HCO3 ABG O2 Sat (Measured) ABG O2 Content ABG Base Excess Gama Test VBG pH 7.34 POC VBG pCO2 55.9 H POC VBG pO2 58.8 H D Mixed VBG HCO3 29.5 H O2 Delivery Device Oxygen Flow Rate Vent Mode Vent Rate Mechanical Rate PEEP Pressure Support Vent Sodium Potassium Chloride Carbon Dioxide Anion Gap BUN Creatinine Creat Clearance w eGFR POC Glucometer Random Glucose Hemoglobin A1c % Lactic Acid Calcium Phosphorus Magnesium Total Bilirubin AST ALT Alkaline Phosphatase Creatine Kinase Creatine Kinase Index CK-MB (CK-2) Troponin I B-Natriuretic Peptide Total Protein Albumin Urine Color Urine Appearance Urine pH Ur Specific [place] Urine Protein Urine Glucose (UA) Urine Ketones Urine Blood Urine Nitrite Urine Bilirubin Urine Urobilinogen Ur Leukocyte Esterase Urine RBC Urine WBC Uric Acid Crystals Fluid Tot Cell Count Stool Occult Blood Vancomycin Pre-Dose Blood Type Antibody Screen 04/23/17 04/23/17 04/23/17 11:40 11:40 11:40 WBC RBC Hgb Hct MCV MCH MCHC RDW Plt Count MPV Neutrophils % Lymphocytes % Monocytes % Eosinophils % Basophils % Band Neutrophils Metamyelocytes Myelocytes Promyelocytes Nucleated RBCs Differential Comment Hypersegmented Neuts Plasmacytoid Lymphs Reactive Lymphocytes Blast Cells Plasma Cells Other Cell Type Toxic Granulation Dohle Bodies Racquel Rods Platelet Estimate Polychromasia Hypochromic-Microcytic Poikilocytosis Basophilic Stippling Anisocytosis Microcytosis Macrocytosis Spherocytes Siderocytes Sickle Cells Target Cells Tear Drop Cells Ovalocytes Stomatocytes Helmet Cells [place] Bodies [place] Rings Kory Cells Acanthocytes (Spur) Rouleaux Fragmented RBCs Schistocytes Morphology Comment Retic Count INR PTT (Actin FS) D-Dimer Puncture Site Patient Temperature ABG pH ABG pCO2 at Pt Temp ABG pO2 at Pt Temp ABG HCO3 ABG O2 Sat (Measured) ABG O2 Content ABG Base Excess Gama Test VBG pH POC VBG pCO2 POC VBG pO2 Mixed VBG HCO3 O2 Delivery Device Oxygen Flow Rate Vent Mode Vent Rate Mechanical Rate PEEP Pressure Support Vent Sodium 137 Potassium 4.9 Chloride 95 L Carbon Dioxide 31 Anion Gap 11 BUN 26 H D Creatinine 1.1 H D Creat Clearance w eGFR 50.84 POC Glucometer Random Glucose 118 H D Hemoglobin A1c % Lactic Acid 3.6 H* Calcium 8.0 L Phosphorus Magnesium Total Bilirubin 0.4 D AST 40 H D ALT 28 D Alkaline Phosphatase 80 D Creatine Kinase 160 D Creatine Kinase Index 0.8 CK-MB (CK-2) 1.225 Troponin I < 0.02 B-Natriuretic Peptide Total Protein 6.9 Albumin 2.2 L Urine Color Yellow Urine Appearance Clear Urine pH 5.0 Ur Specific [place] 1.010 Urine Protein Negative Urine Glucose (UA) Negative Urine Ketones Negative Urine Blood Negative Urine Nitrite Negative Urine Bilirubin Negative Urine Urobilinogen Negative Ur Leukocyte Esterase Negative Urine RBC Urine WBC Uric Acid Crystals Fluid Tot Cell Count Stool Occult Blood Vancomycin Pre-Dose Blood Type Antibody Screen 04/23/17 04/23/17 04/24/17 11:40 16:20 05:15 WBC 18.5 H RBC 4.49 Hgb 8.9 L Hct 31.3 L MCV 69.7 L MCH 19.8 L MCHC 28.4 L RDW 21.7 H Plt Count 267 MPV 8.9 Neutrophils % Lymphocytes % Monocytes % Eosinophils % Basophils % Band Neutrophils Metamyelocytes Myelocytes Promyelocytes Nucleated RBCs Differential Comment Hypersegmented Neuts Plasmacytoid Lymphs Reactive Lymphocytes Blast Cells Plasma Cells Other Cell Type Toxic Granulation Dohle Bodies Racquel Rods Platelet Estimate Polychromasia Hypochromic-Microcytic Poikilocytosis Basophilic Stippling Anisocytosis Microcytosis Macrocytosis Spherocytes Siderocytes Sickle Cells Target Cells Tear Drop Cells Ovalocytes Stomatocytes Helmet Cells [place] Bodies [place] Rings Kory Cells Acanthocytes (Spur) Rouleaux Fragmented RBCs Schistocytes Morphology Comment Retic Count INR PTT (Actin FS) D-Dimer Puncture Site Patient Temperature ABG pH ABG pCO2 at Pt Temp ABG pO2 at Pt Temp ABG HCO3 ABG O2 Sat (Measured) ABG O2 Content ABG Base Excess Gama Test VBG pH POC VBG pCO2 POC VBG pO2 Mixed VBG HCO3 O2 Delivery Device Oxygen Flow Rate Vent Mode Vent Rate Mechanical Rate PEEP Pressure Support Vent Sodium Potassium Chloride Carbon Dioxide Anion Gap BUN Creatinine Creat Clearance w eGFR POC Glucometer Random Glucose Hemoglobin A1c % Lactic Acid 1.8 Calcium Phosphorus Magnesium Total Bilirubin AST ALT Alkaline Phosphatase Creatine Kinase Creatine Kinase Index CK-MB (CK-2) Troponin I B-Natriuretic Peptide Total Protein Albumin Urine Color Urine Appearance Urine pH Ur Specific [place] Urine Protein Urine Glucose (UA) Urine Ketones Urine Blood Urine Nitrite Urine Bilirubin Urine Urobilinogen Ur Leukocyte Esterase Urine RBC Urine WBC Uric Acid Crystals Fluid Tot Cell Count Stool Occult Blood Vancomycin Pre-Dose Blood Type A POSITIVE Antibody Screen Negative 04/24/17 04/24/17 04/24/17 05:15 05:15 05:15 WBC RBC Hgb Hct MCV MCH MCHC RDW Plt Count MPV Neutrophils % Lymphocytes % Monocytes % Eosinophils % Basophils % Band Neutrophils Metamyelocytes Myelocytes Promyelocytes Nucleated RBCs Differential Comment Hypersegmented Neuts Plasmacytoid Lymphs Reactive Lymphocytes Blast Cells Plasma Cells Other Cell Type Toxic Granulation Dohle Bodies Racquel Rods Platelet Estimate Polychromasia Hypochromic-Microcytic Poikilocytosis Basophilic Stippling Anisocytosis Microcytosis Macrocytosis Spherocytes Siderocytes Sickle Cells Target Cells Tear Drop Cells Ovalocytes Stomatocytes Helmet Cells [place] Bodies [place] Rings [place] Cells Acanthocytes (Spur) Rouleaux Fragmented RBCs Schistocytes Morphology Comment Retic Count INR PTT (Actin FS) D-Dimer Puncture Site Patient Temperature ABG pH ABG pCO2 at Pt Temp ABG pO2 at Pt Temp ABG HCO3 ABG O2 Sat (Measured) ABG O2 Content ABG Base Excess [place]ama Test VBG pH POC VBG pCO2 POC VBG pO2 Mixed VBG HCO3 O2 Delivery Device Oxygen Flow Rate Vent Mode Vent Rate Mechanical Rate PEEP Pressure Support Vent Sodium 138 Potassium 5.3 H Chloride 98 Carbon Dioxide 33 H Anion Gap 7 L BUN 24 H Creatinine 0.9 Creat Clearance w eGFR > 60 POC Glucometer Random Glucose 82 D Hemoglobin A1c % 7.6 H Lactic Acid 1.0 Calcium 7.3 L Phosphorus 4.1 Magnesium 2.0 Total Bilirubin 0.3 D AST 23 D ALT 26 Alkaline Phosphatase 70 Creatine Kinase Creatine Kinase Index CK-MB (CK-2) Troponin I B-Natriuretic Peptide Total Protein 6.1 L Albumin 1.9 L Urine Color Urine Appearance Urine pH Ur Specific [place] Urine Protein Urine Glucose (UA) Urine Ketones Urine Blood Urine Nitrite Urine Bilirubin Urine Urobilinogen Ur Leukocyte Esterase Urine RBC Urine WBC Uric Acid Crystals Fluid Tot Cell Count Stool Occult Blood Vancomycin Pre-Dose Blood Type Antibody Screen 04/24/17 04/24/17 04/25/17 10:15 20:30 07:30 WBC RBC Hgb Hct MCV MCH MCHC RDW Plt Count MPV Neutrophils % Lymphocytes % Monocytes % Eosinophils % Basophils % Band Neutrophils Metamyelocytes Myelocytes Promyelocytes Nucleated RBCs Differential Comment Hypersegmented Neuts Plasmacytoid Lymphs Reactive Lymphocytes Blast Cells Plasma Cells Other Cell Type Toxic Granulation Dohle Bodies Racquel Rods Platelet Estimate Polychromasia Hypochromic-Microcytic Poikilocytosis Basophilic Stippling Anisocytosis Microcytosis Macrocytosis Spherocytes Siderocytes Sickle Cells Target Cells Tear Drop Cells Ovalocytes Stomatocytes Helmet Cells [place] Bodies [place] Rings Kory Cells Acanthocytes (Spur) Rouleaux Fragmented RBCs Schistocytes Morphology Comment Retic Count INR PTT (Actin FS) 19.3 L D D-Dimer 1293 H Puncture Site Patient Temperature ABG pH ABG pCO2 at Pt Temp ABG pO2 at Pt Temp ABG HCO3 ABG O2 Sat (Measured) ABG O2 Content ABG Base Excess [place]ama Test VBG pH POC VBG pCO2 POC VBG pO2 Mixed VBG HCO3 O2 Delivery Device Oxygen Flow Rate Vent Mode Vent Rate Mechanical Rate PEEP Pressure Support Vent Sodium Potassium Chloride Carbon Dioxide Anion Gap BUN Creatinine Creat Clearance w eGFR POC Glucometer Random Glucose Hemoglobin A1c % Lactic Acid Calcium Phosphorus Magnesium Total Bilirubin AST ALT Alkaline Phosphatase Creatine Kinase Creatine Kinase Index CK-MB (CK-2) Troponin I B-Natriuretic Peptide Total Protein Albumin Urine Color Straw Urine Appearance Turbid Urine pH 5.0 Ur Specific [place] 1.015 Urine Protein Negative Urine Glucose (UA) Negative Urine Ketones Negative Urine Blood 2+ H Urine Nitrite Negative Urine Bilirubin Negative Urine Urobilinogen Negative Ur Leukocyte Esterase Negative Urine RBC 17 Urine WBC 1 Uric Acid Crystals Many Fluid Tot Cell Count Stool Occult Blood Vancomycin Pre-Dose Blood Type Antibody Screen 04/25/17 04/25/17 04/25/17 08:10 08:10 08:10 WBC 19.1 H RBC 4.69 Hgb 9.4 L Hct 32.8 MCV 69.9 L MCH 20.1 L MCHC 28.7 L RDW 21.8 H Plt Count 265 MPV 9.0 Neutrophils % 68.1 Lymphocytes % 11.3 D Monocytes % 4.9 Eosinophils % 14.9 H Basophils % 0.8 Band Neutrophils Metamyelocytes Myelocytes Promyelocytes Nucleated RBCs Differential Comment Hypersegmented Neuts Plasmacytoid Lymphs Reactive Lymphocytes Blast Cells Plasma Cells Other Cell Type Toxic Granulation Dohle Bodies Racquel Rods Platelet Estimate Polychromasia Hypochromic-Microcytic Poikilocytosis Basophilic Stippling Anisocytosis Microcytosis Macrocytosis Spherocytes Siderocytes Sickle Cells Target Cells Tear Drop Cells Ovalocytes Stomatocytes Helmet Cells [place] Bodies [place] Rings [place] Cells Acanthocytes (Spur) Rouleaux Fragmented RBCs Schistocytes Morphology Comment Retic Count INR PTT (Actin FS) 24.5 L D-Dimer Puncture Site Patient Temperature ABG pH ABG pCO2 at Pt Temp ABG pO2 at Pt Temp ABG HCO3 ABG O2 Sat (Measured) ABG O2 Content ABG Base Excess [place]ama Test VBG pH POC VBG pCO2 POC VBG pO2 Mixed VBG HCO3 O2 Delivery Device Oxygen Flow Rate Vent Mode Vent Rate Mechanical Rate PEEP Pressure Support Vent Sodium 136 Potassium 5.8 H Chloride 101 Carbon Dioxide 31 Anion Gap 4 L BUN 16 D Creatinine 0.6 D Creat Clearance w eGFR > 60 POC Glucometer Random Glucose 95 Hemoglobin A1c % Lactic Acid Calcium 7.5 L Phosphorus Magnesium Total Bilirubin 0.3 AST 33 D ALT 25 Alkaline Phosphatase 73 Creatine Kinase Creatine Kinase Index CK-MB (CK-2) Troponin I B-Natriuretic Peptide Total Protein 6.5 Albumin 1.8 L Urine Color Urine Appearance Urine pH Ur Specific [place] Urine Protein Urine Glucose (UA) Urine Ketones Urine Blood Urine Nitrite Urine Bilirubin Urine Urobilinogen Ur Leukocyte Esterase Urine RBC Urine WBC Uric Acid Crystals Fluid Tot Cell Count Stool Occult Blood Vancomycin Pre-Dose Blood Type Antibody Screen 04/25/17 04/25/17 04/25/17 11:20 15:01 15:01 WBC RBC Hgb Hct MCV MCH MCHC RDW Plt Count MPV Neutrophils % Lymphocytes % Monocytes % Eosinophils % Basophils % Band Neutrophils Metamyelocytes Myelocytes Promyelocytes Nucleated RBCs Differential Comment Hypersegmented Neuts Plasmacytoid Lymphs Reactive Lymphocytes Blast Cells Plasma Cells Other Cell Type Toxic Granulation Dohle Bodies Racquel Rods Platelet Estimate Polychromasia Hypochromic-Microcytic Poikilocytosis Basophilic Stippling Anisocytosis Microcytosis Macrocytosis Spherocytes Siderocytes Sickle Cells Target Cells Tear Drop Cells Ovalocytes Stomatocytes Helmet Cells [place] Bodies [place] Rings [place] Cells Acanthocytes (Spur) Rouleaux Fragmented RBCs Schistocytes Morphology Comment Retic Count INR PTT (Actin FS) 38.7 H D D-Dimer Puncture Site Patient Temperature ABG pH ABG pCO2 at Pt Temp ABG pO2 at Pt Temp ABG HCO3 ABG O2 Sat (Measured) ABG O2 Content ABG Base Excess Gama Test VBG pH POC VBG pCO2 POC VBG pO2 Mixed VBG HCO3 O2 Delivery Device Oxygen Flow Rate Vent Mode Vent Rate Mechanical Rate PEEP Pressure Support Vent Sodium 136 Potassium 5.6 H Chloride 100 Carbon Dioxide 32 Anion Gap 4 L BUN 14 Creatinine 0.8 D Creat Clearance w eGFR POC Glucometer 154.52799 Random Glucose 118 H D Hemoglobin A1c % Lactic Acid Calcium 7.4 L Phosphorus Magnesium Total Bilirubin AST ALT Alkaline Phosphatase Creatine Kinase Creatine Kinase Index CK-MB (CK-2) Troponin I B-Natriuretic Peptide Total Protein Albumin Urine Color Urine Appearance Urine pH Ur Specific [place] Urine Protein Urine Glucose (UA) Urine Ketones Urine Blood Urine Nitrite Urine Bilirubin Urine Urobilinogen Ur Leukocyte Esterase Urine RBC Urine WBC Uric Acid Crystals Fluid Tot Cell Count Stool Occult Blood Vancomycin Pre-Dose Blood Type Antibody Screen 04/25/17 04/25/17 04/25/17 15:58 16:34 21:55 WBC RBC Hgb Hct MCV MCH MCHC RDW Plt Count MPV Neutrophils % Lymphocytes % Monocytes % Eosinophils % Basophils % Band Neutrophils Metamyelocytes Myelocytes Promyelocytes Nucleated RBCs Differential Comment Hypersegmented Neuts Plasmacytoid Lymphs Reactive Lymphocytes Blast Cells Plasma Cells Other Cell Type Toxic Granulation Dohle Bodies Racquel Rods Platelet Estimate Polychromasia Hypochromic-Microcytic Poikilocytosis Basophilic Stippling Anisocytosis Microcytosis Macrocytosis Spherocytes Siderocytes Sickle Cells Target Cells Tear Drop Cells Ovalocytes Stomatocytes Helmet Cells [place] Bodies [place] Rings [place] Cells Acanthocytes (Spur) Rouleaux Fragmented RBCs Schistocytes Morphology Comment Retic Count INR PTT (Actin FS) 33.4 D-Dimer Puncture Site Patient Temperature ABG pH ABG pCO2 at Pt Temp ABG pO2 at Pt Temp ABG HCO3 ABG O2 Sat (Measured) ABG O2 Content ABG Base Excess Gama Test VBG pH POC VBG pCO2 POC VBG pO2 Mixed VBG HCO3 O2 Delivery Device Oxygen Flow Rate Vent Mode Vent Rate Mechanical Rate PEEP Pressure Support Vent Sodium Potassium Chloride Carbon Dioxide Anion Gap BUN Creatinine Creat Clearance w eGFR POC Glucometer 152.45231 Random Glucose Hemoglobin A1c % Lactic Acid Calcium Phosphorus Magnesium Total Bilirubin AST ALT Alkaline Phosphatase Creatine Kinase Creatine Kinase Index CK-MB (CK-2) Troponin I B-Natriuretic Peptide Total Protein Albumin Urine Color Urine Appearance Urine pH Ur Specific [place] Urine Protein Urine Glucose (UA) Urine Ketones Urine Blood Urine Nitrite Urine Bilirubin Urine Urobilinogen Ur Leukocyte Esterase Urine RBC Urine WBC Uric Acid Crystals Fluid Tot Cell Count Stool Occult Blood Negative Vancomycin Pre-Dose Blood Type Antibody Screen 04/26/17 04/26/17 04/26/17 05:20 05:20 05:20 WBC 18.0 H RBC 4.52 Hgb 9.0 L Hct 31.3 L MCV 69.4 L MCH 19.9 L MCHC 28.7 L RDW 22.0 H Plt Count 283 MPV 8.4 Neutrophils % 70.3 Lymphocytes % 13.4 Monocytes % 5.2 Eosinophils % 10.3 H Basophils % 0.8 Band Neutrophils Cancelled Metamyelocytes Cancelled Myelocytes Cancelled Promyelocytes Cancelled Nucleated RBCs Cancelled Differential Comment Hypersegmented Neuts Cancelled Plasmacytoid Lymphs Cancelled Reactive Lymphocytes Cancelled Blast Cells Cancelled Plasma Cells Cancelled Other Cell Type Cancelled Toxic Granulation Cancelled Dohle Bodies Cancelled Racquel Rods Cancelled Platelet Estimate Cancelled Polychromasia Cancelled Hypochromic-Microcytic Cancelled Poikilocytosis Cancelled Basophilic Stippling Cancelled Anisocytosis Cancelled Microcytosis Cancelled Macrocytosis Cancelled Spherocytes Cancelled Siderocytes Cancelled Sickle Cells Cancelled Target Cells Cancelled Tear Drop Cells Cancelled Ovalocytes Cancelled Stomatocytes Cancelled Helmet Cells Cancelled [place] Bodies Cancelled [place] Rings Cancelled Kory Cells Cancelled Acanthocytes (Spur) Cancelled Rouleaux Cancelled Fragmented RBCs Cancelled Schistocytes Cancelled Morphology Comment Cancelled Retic Count INR PTT (Actin FS) 36.9 H D-Dimer Puncture Site Patient Temperature ABG pH ABG pCO2 at Pt Temp ABG pO2 at Pt Temp ABG HCO3 ABG O2 Sat (Measured) ABG O2 Content ABG Base Excess Gama Test VBG pH POC VBG pCO2 POC VBG pO2 Mixed VBG HCO3 O2 Delivery Device Oxygen Flow Rate Vent Mode Vent Rate Mechanical Rate PEEP Pressure Support Vent Sodium 137 Potassium 5.4 H Chloride 100 Carbon Dioxide 32 Anion Gap 5 L BUN 11 D Creatinine 0.6 D Creat Clearance w eGFR > 60 POC Glucometer Random Glucose 101 Hemoglobin A1c % Lactic Acid Calcium 7.6 L Phosphorus Magnesium Total Bilirubin 0.6 D AST 15 D ALT 19 D Alkaline Phosphatase 69 Creatine Kinase Creatine Kinase Index CK-MB (CK-2) Troponin I < 0.02 B-Natriuretic Peptide 1960.13 H Total Protein 6.3 L Albumin 1.8 L Urine Color Urine Appearance Urine pH Ur Specific [place] Urine Protein Urine Glucose (UA) Urine Ketones Urine Blood Urine Nitrite Urine Bilirubin Urine Urobilinogen Ur Leukocyte Esterase Urine RBC Urine WBC Uric Acid Crystals Fluid Tot Cell Count Cancelled Stool Occult Blood Vancomycin Pre-Dose Blood Type Antibody Screen 04/26/17 04/26/17 04/26/17 06:00 10:00 10:30 WBC RBC Hgb Hct MCV MCH MCHC RDW Plt Count MPV Neutrophils % Lymphocytes % Monocytes % Eosinophils % Basophils % Band Neutrophils Metamyelocytes Myelocytes Promyelocytes Nucleated RBCs Differential Comment Hypersegmented Neuts Plasmacytoid Lymphs Reactive Lymphocytes Blast Cells Plasma Cells Other Cell Type Toxic Granulation Dohle Bodies Racquel Rods Platelet Estimate Polychromasia Hypochromic-Microcytic Poikilocytosis Basophilic Stippling Anisocytosis Microcytosis Macrocytosis Spherocytes Siderocytes Sickle Cells Target Cells Tear Drop Cells Ovalocytes Stomatocytes Helmet Cells [place] Bodies [place] Rings [place] Cells Acanthocytes (Spur) Rouleaux Fragmented RBCs Schistocytes Morphology Comment Retic Count INR PTT (Actin FS) D-Dimer Puncture Site Patient Temperature ABG pH ABG pCO2 at Pt Temp ABG pO2 at Pt Temp ABG HCO3 ABG O2 Sat (Measured) ABG O2 Content ABG Base Excess Gama Test VBG pH 7.26 L POC VBG pCO2 73.4 H* D POC VBG pO2 50.7 H Mixed VBG HCO3 31.8 H O2 Delivery Device Oxygen Flow Rate Vent Mode Vent Rate Mechanical Rate PEEP Pressure Support Vent Sodium Potassium Chloride Carbon Dioxide Anion Gap BUN Creatinine Creat Clearance w eGFR POC Glucometer Random Glucose Hemoglobin A1c % Lactic Acid Calcium Phosphorus Magnesium Total Bilirubin AST ALT Alkaline Phosphatase Creatine Kinase Creatine Kinase Index CK-MB (CK-2) Troponin I Cancelled B-Natriuretic Peptide Cancelled Total Protein Albumin Urine Color Urine Appearance Urine pH Ur Specific [place] Urine Protein Urine Glucose (UA) Urine Ketones Urine Blood Urine Nitrite Urine Bilirubin Urine Urobilinogen Ur Leukocyte Esterase Urine RBC Urine WBC Uric Acid Crystals Fluid Tot Cell Count Stool Occult Blood Vancomycin Pre-Dose 4.453 L* Blood Type Antibody Screen 04/26/17 04/26/17 04/26/17 11:15 11:18 12:15 WBC RBC Hgb Hct MCV MCH MCHC RDW Plt Count MPV Neutrophils % Lymphocytes % Monocytes % Eosinophils % Basophils % Band Neutrophils Metamyelocytes Myelocytes Promyelocytes Nucleated RBCs Differential Comment Hypersegmented Neuts Plasmacytoid Lymphs Reactive Lymphocytes Blast Cells Plasma Cells Other Cell Type Toxic Granulation Dohle Bodies Racquel Rods Platelet Estimate Polychromasia Hypochromic-Microcytic Poikilocytosis Basophilic Stippling Anisocytosis Microcytosis Macrocytosis Spherocytes Siderocytes Sickle Cells Target Cells Tear Drop Cells Ovalocytes Stomatocytes Helmet Cells [place] Bodies [place] Rings [place] Cells Acanthocytes (Spur) Rouleaux Fragmented RBCs Schistocytes Morphology Comment Retic Count INR PTT (Actin FS) 85.1 H D D-Dimer Puncture Site Right radial Patient Temperature 102.3 ABG pH 7.30 L ABG pCO2 at Pt Temp 69.9 H* ABG pO2 at Pt Temp 98.3 D ABG HCO3 32.1 H ABG O2 Sat (Measured) 97.0 ABG O2 Content 13.0 L ABG Base Excess 5.3 H Gama Test Positive VBG pH POC VBG pCO2 POC VBG pO2 Mixed VBG HCO3 O2 Delivery Device Ot Oxygen Flow Rate 40% Vent Mode St Vent Rate 10 Mechanical Rate Bipap PEEP 0.0 Pressure Support Vent 15/8 Sodium Potassium Chloride Carbon Dioxide Anion Gap BUN Creatinine Creat Clearance w eGFR POC Glucometer [phone] Random Glucose Hemoglobin A1c % Lactic Acid Calcium Phosphorus Magnesium Total Bilirubin AST ALT Alkaline Phosphatase Creatine Kinase Creatine Kinase Index CK-MB (CK-2) Troponin I B-Natriuretic Peptide Total Protein Albumin Urine Color Urine Appearance Urine pH Ur Specific [place] Urine Protein Urine Glucose (UA) Urine Ketones Urine Blood Urine Nitrite Urine Bilirubin Urine Urobilinogen Ur Leukocyte Esterase Urine RBC Urine WBC Uric Acid Crystals Fluid Tot Cell Count Stool Occult Blood Vancomycin Pre-Dose Blood Type Antibody Screen 04/26/17 04/26/17 04/26/17 15:35 15:35 17:50 WBC RBC Hgb Hct MCV MCH MCHC RDW Plt Count MPV Neutrophils % Lymphocytes % Monocytes % Eosinophils % Basophils % Band Neutrophils Metamyelocytes Myelocytes Promyelocytes Nucleated RBCs Differential Comment Hypersegmented Neuts Plasmacytoid Lymphs Reactive Lymphocytes Blast Cells Plasma Cells Other Cell Type Toxic Granulation Dohle Bodies Racquel Rods Platelet Estimate Polychromasia Hypochromic-Microcytic Poikilocytosis Basophilic Stippling Anisocytosis Microcytosis Macrocytosis Spherocytes Siderocytes Sickle Cells Target Cells Tear Drop Cells Ovalocytes Stomatocytes Helmet Cells [place] Bodies [place] Rings Calera Cells Acanthocytes (Spur) Rouleaux Fragmented RBCs Schistocytes Morphology Comment Retic Count INR PTT (Actin FS) 91.0 H D-Dimer Puncture Site Patient Temperature ABG pH ABG pCO2 at Pt Temp ABG pO2 at Pt Temp ABG HCO3 ABG O2 Sat (Measured) ABG O2 Content ABG Base Excess Gama Test VBG pH POC VBG pCO2 POC VBG pO2 Mixed VBG HCO3 O2 Delivery Device Oxygen Flow Rate Vent Mode Vent Rate Mechanical Rate PEEP Pressure Support Vent Sodium 136 Potassium 5.6 H Chloride 101 Carbon Dioxide 35 H Anion Gap 0 L BUN 10 Creatinine 0.6 Creat Clearance w eGFR > 60 POC Glucometer [phone] Random Glucose 100 Hemoglobin A1c % Lactic Acid Calcium 7.5 L Phosphorus Magnesium Total Bilirubin 0.3 D AST 16 ALT 16 Alkaline Phosphatase 63 Creatine Kinase Creatine Kinase Index CK-MB (CK-2) Troponin I B-Natriuretic Peptide Total Protein 6.1 L Albumin 1.7 L Urine Color Urine Appearance Urine pH Ur Specific [place] Urine Protein Urine Glucose (UA) Urine Ketones Urine Blood Urine Nitrite Urine Bilirubin Urine Urobilinogen Ur Leukocyte Esterase Urine RBC Urine WBC Uric Acid Crystals Fluid Tot Cell Count Stool Occult Blood Vancomycin Pre-Dose Blood Type Antibody Screen 04/26/17 04/26/17 04/27/17 23:00 23:00 00:05 WBC RBC Hgb Hct MCV MCH MCHC RDW Plt Count MPV Neutrophils % Lymphocytes % Monocytes % Eosinophils % Basophils % Band Neutrophils Metamyelocytes Myelocytes Promyelocytes Nucleated RBCs Differential Comment Hypersegmented Neuts Plasmacytoid Lymphs Reactive Lymphocytes Blast Cells Plasma Cells Other Cell Type Toxic Granulation Dohle Bodies Racquel Rods Platelet Estimate Polychromasia Hypochromic-Microcytic Poikilocytosis Basophilic Stippling Anisocytosis Microcytosis Macrocytosis Spherocytes Siderocytes Sickle Cells Target Cells Tear Drop Cells Ovalocytes Stomatocytes Helmet Cells [place] Bodies [place] Rings [place]era Cells Acanthocytes (Spur) Rouleaux Fragmented RBCs Schistocytes Morphology Comment Retic Count INR PTT (Actin FS) 99.5 H D-Dimer Puncture Site Patient Temperature ABG pH ABG pCO2 at Pt Temp ABG pO2 at Pt Temp ABG HCO3 ABG O2 Sat (Measured) ABG O2 Content ABG Base Excess Gama Test VBG pH POC VBG pCO2 POC VBG pO2 Mixed VBG HCO3 O2 Delivery Device Oxygen Flow Rate Vent Mode Vent Rate Mechanical Rate PEEP Pressure Support Vent Sodium Cancelled 136 Potassium Cancelled 5.7 H Chloride Cancelled 100 Carbon Dioxide Cancelled 31 Anion Gap Cancelled 5 L BUN Cancelled 9 Creatinine Cancelled 0.6 Creat Clearance w eGFR POC Glucometer Random Glucose Cancelled 115 H Hemoglobin A1c % Lactic Acid Calcium Cancelled 7.5 L Phosphorus Magnesium Total Bilirubin AST ALT Alkaline Phosphatase Creatine Kinase Creatine Kinase Index CK-MB (CK-2) Troponin I B-Natriuretic Peptide Total Protein Albumin Urine Color Urine Appearance Urine pH Ur Specific [place] Urine Protein Urine Glucose (UA) Urine Ketones Urine Blood Urine Nitrite Urine Bilirubin Urine Urobilinogen Ur Leukocyte Esterase Urine RBC Urine WBC Uric Acid Crystals Fluid Tot Cell Count Stool Occult Blood Vancomycin Pre-Dose Blood Type Antibody Screen 04/27/17 04/27/17 04/27/17 05:15 05:15 05:15 WBC 17.0 H RBC 4.40 Hgb 8.7 L Hct 30.4 L MCV 69.0 L MCH 19.9 L MCHC 28.8 L RDW 22.3 H Plt Count 281 MPV 8.9 Neutrophils % 70.3 Lymphocytes % 10.9 Monocytes % 4.3 Eosinophils % 13.7 H Basophils % 0.8 Band Neutrophils Metamyelocytes Myelocytes Promyelocytes Nucleated RBCs Differential Comment Hypersegmented Neuts Plasmacytoid Lymphs Reactive Lymphocytes Blast Cells Plasma Cells Other Cell Type Toxic Granulation Dohle Bodies Racquel Rods Platelet Estimate Polychromasia Hypochromic-Microcytic 3+ Poikilocytosis Basophilic Stippling Anisocytosis 2+ Microcytosis 2+ Macrocytosis Spherocytes Siderocytes Sickle Cells Target Cells Tear Drop Cells Ovalocytes Stomatocytes Helmet Cells [place] Bodies [place] Rings [place] Cells Acanthocytes (Spur) Rouleaux Fragmented RBCs Schistocytes Morphology Comment Retic Count INR PTT (Actin FS) 63.1 H D D-Dimer Puncture Site Patient Temperature ABG pH ABG pCO2 at Pt Temp ABG pO2 at Pt Temp ABG HCO3 ABG O2 Sat (Measured) ABG O2 Content ABG Base Excess Gama Test VBG pH POC VBG pCO2 POC VBG pO2 Mixed VBG HCO3 O2 Delivery Device Oxygen Flow Rate Vent Mode Vent Rate Mechanical Rate PEEP Pressure Support Vent Sodium 135 L Potassium 5.6 H Chloride 97 L Carbon Dioxide 33 H Anion Gap 5 L BUN 9 Creatinine 0.6 Creat Clearance w eGFR > 60 POC Glucometer Random Glucose 95 Hemoglobin A1c % Lactic Acid Calcium 7.6 L Phosphorus 2.8 D Magnesium 1.9 Total Bilirubin 0.3 AST 19 ALT 17 Alkaline Phosphatase 69 Creatine Kinase Creatine Kinase Index CK-MB (CK-2) Troponin I B-Natriuretic Peptide Total Protein 6.2 L Albumin 1.6 L Urine Color Urine Appearance Urine pH Ur Specific [place] Urine Protein Urine Glucose (UA) Urine Ketones Urine Blood Urine Nitrite Urine Bilirubin Urine Urobilinogen Ur Leukocyte Esterase Urine RBC Urine WBC Uric Acid Crystals Fluid Tot Cell Count Stool Occult Blood Vancomycin Pre-Dose Blood Type Antibody Screen 04/27/17 05:15 WBC RBC Hgb Hct MCV MCH MCHC RDW Plt Count MPV Neutrophils % Lymphocytes % Monocytes % Eosinophils % Basophils % Band Neutrophils Metamyelocytes Myelocytes Promyelocytes Nucleated RBCs Differential Comment Hypersegmented Neuts Plasmacytoid Lymphs Reactive Lymphocytes Blast Cells Plasma Cells Other Cell Type Toxic Granulation Dohle Bodies Racquel Rods Platelet Estimate Polychromasia Hypochromic-Microcytic Poikilocytosis Basophilic Stippling Anisocytosis Microcytosis Macrocytosis Spherocytes Siderocytes Sickle Cells Target Cells Tear Drop Cells Ovalocytes Stomatocytes Helmet Cells [place] Bodies [place] Rings [place] Cells Acanthocytes (Spur) Rouleaux Fragmented RBCs Schistocytes Morphology Comment Retic Count 2.19 H INR PTT (Actin FS) D-Dimer Puncture Site Patient Temperature ABG pH ABG pCO2 at Pt Temp ABG pO2 at Pt Temp ABG HCO3 ABG O2 Sat (Measured) ABG O2 Content ABG Base Excess Gama Test VBG pH POC VBG pCO2 POC VBG pO2 Mixed VBG HCO3 O2 Delivery Device Oxygen Flow Rate Vent Mode Vent Rate Mechanical Rate PEEP Pressure Support Vent Sodium Potassium Chloride Carbon Dioxide Anion Gap BUN Creatinine Creat Clearance w eGFR POC Glucometer Random Glucose Hemoglobin A1c % Lactic Acid Calcium Phosphorus Magnesium Total Bilirubin AST ALT Alkaline Phosphatase Creatine Kinase Creatine Kinase Index CK-MB (CK-2) Troponin I B-Natriuretic Peptide Total Protein Albumin Urine Color Urine Appearance Urine pH Ur Specific [place] Urine Protein Urine Glucose (UA) Urine Ketones Urine Blood Urine Nitrite Urine Bilirubin Urine Urobilinogen Ur Leukocyte Esterase Urine RBC Urine WBC Uric Acid Crystals Fluid Tot Cell Count Stool Occult Blood Vancomycin Pre-Dose Blood Type Antibody Screen Assessment/Plan 1) Sepsis 2/2 G+ bacteremia septic shock cont abx and pressors D-dimer, elevated Assessment/Plan: r/o PE On IV heparin (problematic doing CTA, VQ given obesity, sepsis with hypotension) . ECHO shows similar LV and RV findings compared to 09/2015 ECHO). F/u clinically; several liters +fluid balance. Code(s): R79.89 - OTHER SPECIFIED ABNORMAL FINDINGS OF BLOOD CHEMISTRY (2) Desquamated skin Code(s): R23.4 - CHANGES IN SKIN TEXTURE (3) Microcytic anemia Code(s): D50.9 - IRON DEFICIENCY ANEMIA, UNSPECIFIED (4) Sepsis Code(s): A41.9 - SEPSIS, UNSPECIFIED ORGANISM Qualifiers: Sepsis type: sepsis due to unspecified organism Qualified Code(s): A41.9 - Sepsis, unspecified organism (5) Asthma Code(s): J45.909 - UNSPECIFIED ASTHMA, UNCOMPLICATED Qualifiers: Asthma severity: mild intermittent Asthma complication type: uncomplicated Qualified Code(s): J45.20 - Mild intermittent asthma, uncomplicated (6) HTN (hypertension) Code(s): I10 - ESSENTIAL (PRIMARY) HYPERTENSION (7) Morbid obesity Code(s): E66.01 - MORBID (SEVERE) OBESITY DUE TO EXCESS CALORIES (8) Congestive heart disease Assessment/Plan: ECHO 09/2015: low-normal LVEF Preliminary reading of ECHO today notes relatively normal LVEF; RV size (mild- mod enlarged)and RVEF (mildly reduced) also appears relatively unchanged from 2016 study, making PE less likely; septal motion indicative of fluid overload. furosemide IV given-->2 liters urine output. Code(s): I50.9 - HEART FAILURE, UNSPECIFIED (9) Hypotension Assessment/Plan: septic shock; skin sloughing. On phyenyephrine. Antibiotics per ID. Code(s): I95.9 - HYPOTENSION, UNSPECIFIED
[2017-04-27] MEDS: HEPARIN - 25,000 UNIT in SODIUM CHLORIDE 495 ML IV SCH ×2 (09:41→18:29)
[2017-04-27] MEDS: MUPIROCIN 2% TOPICAL OINTMENT 22 GM TUBE NS SCH (09:42)
--- NOTE | 2017-04-27 09:58 | EKG ---
Test Reason : Blood Pressure : / mmHG Vent. Rate : 107 BPM Atrial Rate : 107 BPM P-R Int : 144 ms QRS Dur : 088 ms QT Int : 312 ms P-R-T Axes : 049 012 051 degrees QTc Int : 416 ms SINUS TACHYCARDIA OTHERWISE NORMAL ECG WHEN COMPARED WITH ECG OF 25-APR-2017 11:30, NO SIGNIFICANT CHANGE WAS FOUND Confirmed by JOSEMANUEL OLEA MD ([id number]) on 04/27/2017 9:57:49 AM Referred By: MARCI BOYER Confirmed By:JOSEMANUEL OLEA MD
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
[2017-04-27] MEDS ORDERED: SODIUM POLYSTYRENE SULFONATE 15 GM/60 ML BOTTLE ONE (10:25)
[2017-04-27] MEDS ORDERED: HEMOQUE TEST 1 EACH EACH ONE ×3 (11:52→21:26)
--- NOTE | 2017-04-27 15:20 | PN ---
Progress Note, Physician History of Present Illness: patient looking much better rash looking better patient much more awake and alert comfortable on nasal cannula - Current Medication List Current Medications: Active Medications Acetaminophen (Tylenol Oral Solution -) 650 mg PO Q6H PRN PRN Reason: FEVER OR PAIN Last Admin: 04/26/17 00:22 Dose: 650 mg Albuterol/Ipratropium (Duoneb -) 1 amp NEB Q6H PRN PRN Reason: SHORTNESS OF BREATH Last Admin: 04/26/17 17:45 Dose: 1 amp Chlorhexidine Gluconate (Hibiclens For Decolonization -) 1 applic TP HS WAYNE Last Admin: 04/26/17 21:17 Dose: 1 applic Emollient Ointment (Aquaphor -) 1 applic TP TID WAYNE Last Admin: 04/27/17 06:50 Dose: 1 applic Heparin Sodium (Porcine) (Heparin -) 1,000 unit IVPUSH PRN PRN PRN Reason: Heparin Heparin Sodium (Porcine) (Heparin -) 5,000 unit IVPUSH PRN PRN PRN Reason: Heparin Last Admin: 04/26/17 08:30 Dose: 5,000 unit Meropenem 1 gm/ Dextrose 100 mls @ 200 mls/hr IVPB Q8H-IV WAYNE PRN Reason: Protocol Last Admin: 04/27/17 09:41 Dose: 200 mls/hr Phenylephrine HCl 20,000 mcg/ (Sodium Chloride) 250 mls @ 75 mls/hr IVPB ASDIR WAYNE; 100 MCG/MIN PRN Reason: Protocol Last Admin: 04/27/17 13:21 Dose: 37.5 mls/hr Clindamycin Phosphate (Cleocin 600 Mg Premix Ivpb -) 50 mls @ 100 mls/hr IVPB Q6H-IV WAYNE Last Admin: 04/27/17 09:42 Dose: 100 mls/hr Heparin Sodium (Porcine) 25, (000 unit/ Sodium Chloride) 500 mls @ 70 mls/hr IV TITR WAYNE; 3,500 UNIT/HR PRN Reason: Protocol Last Admin: 04/27/17 09:41 Dose: 66 mls/hr Vancomycin HCl 1,500 mg/ (Dextrose) 500 mls @ 250 mls/hr IVPB BID@0300,1500 WAYNE PRN Reason: Protocol Last Admin: 04/27/17 04:00 Dose: 250 mls/hr Mupirocin (Bactroban 2% Ointment -) 1 applic NS BID WAYNE Stop: 04/28/17 21:59 Last Admin: 04/27/17 09:42 Dose: 1 applic Ondansetron HCl (Zofran Injection) 4 mg IVPUSH Q6H PRN PRN Reason: NAUSEA AND/OR VOMITING - Objective Vital Signs: Vital Signs Temperature 99.4 F 04/27/17 10:00 Pulse Rate 106 H 04/27/17 13:21 Respiratory Rate 22 04/27/17 12:00 Blood Pressure 111/49 04/27/17 13:21 O2 Sat by Pulse Oximetry (%) 98 04/27/17 09:00 Constitutional: Yes: No Distress, Calm, Obese (morbid) Cardiovascular: Yes: Regular Rate and Rhythm Respiratory: Yes: On Nasal O2, Poor Air Entry, Rhonchi Gastrointestinal: Yes: Normal Bowel Sounds, Soft Musculoskeletal: Yes: Other Extremities: Yes: Other Integumentary: Yes: Other (skin rash as described in previous noted) Neurological: Yes: Alert, Oriented Psychiatric: Yes: Alert, Oriented Labs: CBC, BMP 04/27/17 05:15 04/27/17 05:15 INR, PTT INR 1.28 (0.82-1.09) H 04/23/17 11:40 - ....Imaging Other: Report Reviewed, Image Reviewed (echo result noted) Assessment/Plan - Problems (1) Cellulitis Code(s): L03.90 - CELLULITIS, UNSPECIFIED Qualifiers: Site of cellulitis: unspecified site Qualified Code(s): L03.90 - Cellulitis, unspecified (2) Desquamated skin Code(s): R23.4 - CHANGES IN SKIN TEXTURE (3) Sepsis Code(s): A41.9 - SEPSIS, UNSPECIFIED ORGANISM Qualifiers: Sepsis type: sepsis due to unspecified organism Qualified Code(s): A41.9 - Sepsis, unspecified organism (4) generalized rash 5 abd wall cellulitis morbid obesity sepsis septic shock gm positive bateremia plan continue abx hydration close monitoring resp supprt continue antifungal rest as per icu await for biopsy report repat blood cx cc time 40 min
--- NOTE | 2017-04-27 15:36 | PN ---
Physical Exam: SUBJECTIVE: 61 year old female with a pmh of morbid obesity, systemic scaling rash in ICU for sepsis and resp failure. skin biopsy was taken on Thursday. Echo showed possible vegetation on aortic valve. OBJECTIVE: Vital Signs Period Temp Pulse Resp BP Sys/Jones Pulse Ox Last 24 Hr 99.4 F-101 F 97-112 22-32 98-115/46-83 98-100 GENERAL: The patient is awake, alert, and fully oriented, in mild distress HEAD: Normal with no signs of trauma. EYES: PERRL, extraocular movements intact, sclera anicteric, conjunctiva clear. No ptosis. ENT: Ears normal, nares patent, oropharynx clear without exudates, moist mucous membranes. NECK: Trachea midline, full range of motion, supple. LUNGS: Breath sounds equal, clear to auscultation bilaterally, no wheezes, no crackles, no accessory muscle use. HEART: Regular rate and rhythm, S1, S2 without murmur, rub or gallop. ABDOMEN: Soft, nontender, nondistended, normoactive bowel sounds, no guarding, no rebound, no hepatosplenomegaly, no masses. EXTREMITIES: 2+ pulses, warm, well-perfused, no edema. NEUROLOGICAL: Cranial nerves II through XII grossly intact. Normal speech, gait not observed. PSYCH: Normal mood, normal affect. SKIN: Warm, dry, normal turgor, no rashes or lesions noted Laboratory Results - last 24 hr 04/26/17 04/26/17 04/26/17 15:35 15:35 17:50 WBC RBC Hgb Hct MCV MCH MCHC RDW Plt Count MPV Neutrophils % Lymphocytes % Monocytes % Eosinophils % Basophils % Hypochromic-Microcytic Anisocytosis Microcytosis Retic Count PTT (Actin FS) 91.0 H Sodium 136 Potassium 5.6 H Chloride 101 Carbon Dioxide 35 H Anion Gap 0 L BUN 10 Creatinine 0.6 Creat Clearance w eGFR > 60 POC Glucometer 142.94826 Random Glucose 100 Calcium 7.5 L Phosphorus Magnesium Total Bilirubin 0.3 D AST 16 ALT 16 Alkaline Phosphatase 63 Total Protein 6.1 L Albumin 1.7 L 04/26/17 04/26/17 04/27/17 23:00 23:00 00:05 WBC RBC Hgb Hct MCV MCH MCHC RDW Plt Count MPV Neutrophils % Lymphocytes % Monocytes % Eosinophils % Basophils % Hypochromic-Microcytic Anisocytosis Microcytosis Retic Count PTT (Actin FS) 99.5 H Sodium Cancelled 136 Potassium Cancelled 5.7 H Chloride Cancelled 100 Carbon Dioxide Cancelled 31 Anion Gap Cancelled 5 L BUN Cancelled 9 Creatinine Cancelled 0.6 Creat Clearance w eGFR POC Glucometer Random Glucose Cancelled 115 H Calcium Cancelled 7.5 L Phosphorus Magnesium Total Bilirubin AST ALT Alkaline Phosphatase Total Protein Albumin 04/27/17 04/27/17 04/27/17 05:15 05:15 05:15 WBC 17.0 H RBC 4.40 Hgb 8.7 L Hct 30.4 L MCV 69.0 L MCH 19.9 L MCHC 28.8 L RDW 22.3 H Plt Count 281 MPV 8.9 Neutrophils % 70.3 Lymphocytes % 10.9 Monocytes % 4.3 Eosinophils % 13.7 H Basophils % 0.8 Hypochromic-Microcytic 3+ Anisocytosis 2+ Microcytosis 2+ Retic Count PTT (Actin FS) 63.1 H D Sodium 135 L Potassium 5.6 H Chloride 97 L Carbon Dioxide 33 H Anion Gap 5 L BUN 9 Creatinine 0.6 Creat Clearance w eGFR > 60 POC Glucometer Random Glucose 95 Calcium 7.6 L Phosphorus 2.8 D Magnesium 1.9 Total Bilirubin 0.3 AST 19 ALT 17 Alkaline Phosphatase 69 Total Protein 6.2 L Albumin 1.6 L 04/27/17 04/27/17 05:15 11:56 WBC RBC Hgb Hct MCV MCH MCHC RDW Plt Count MPV Neutrophils % Lymphocytes % Monocytes % Eosinophils % Basophils % Hypochromic-Microcytic Anisocytosis Microcytosis Retic Count 2.19 H PTT (Actin FS) Sodium Potassium Chloride Carbon Dioxide Anion Gap BUN Creatinine Creat Clearance w eGFR POC Glucometer 148.65305 Random Glucose Calcium Phosphorus Magnesium Total Bilirubin AST ALT Alkaline Phosphatase Total Protein Albumin Active Medications Generic Name Dose Route Start Last Admin Trade Name Freq PRN Reason Stop Dose Admin Acetaminophen 650 mg 04/23/17 15:31 04/26/17 00:22 Tylenol Oral Solution - PO 650 mg Q6H PRN Administration FEVER OR PAIN Albuterol/Ipratropium 1 amp 04/24/17 11:52 04/26/17 17:45 Duoneb - NEB 1 amp Q6H PRN Administration SHORTNESS OF BREATH Chlorhexidine Gluconate 1 applic 04/23/17 22:00 07/30/17 21:17 Hibiclens For Decolonization - TP 1 applic HS WAYNE Administration Emollient Ointment 1 applic 04/25/17 14:00 04/27/17 06:50 Aquaphor - TP 1 applic TID WAYNE Administration Heparin Sodium (Porcine) 1,000 unit 04/26/17 08:55 Heparin - IVPUSH PRN PRN Heparin Heparin Sodium (Porcine) 5,000 unit 04/26/17 08:55 04/26/17 08:30 Heparin - IVPUSH 5,000 unit PRN PRN Administration Heparin Meropenem 1 gm/ Dextrose 100 mls @ 200 mls/hr 04/23/17 18:00 04/27/17 09:41 IVPB 200 mls/hr Q8H-IV WAYNE Administration Protocol Phenylephrine HCl 20,000 mcg/ 250 mls @ 75 mls/hr 04/25/17 04:15 04/27/17 13:21 Sodium Chloride IVPB 37.5 mls/hr ASDIR WAYNE Administration Protocol 100 MCG/MIN Clindamycin Phosphate 50 mls @ 100 mls/hr 04/25/17 10:15 04/27/17 09:42 Cleocin 600 Mg Premix Ivpb - IVPB 100 mls/hr Q6H-IV WAYNE Administration Heparin Sodium (Porcine) 25, 500 mls @ 70 mls/hr 04/26/17 09:00 04/27/17 09:41 000 unit/ Sodium Chloride IV 66 mls/hr TITR WAYNE Administration Protocol 3,500 UNIT/HR Vancomycin HCl 1,500 mg/ 500 mls @ 250 mls/hr 04/27/17 03:00 04/27/17 04:00 Dextrose IVPB 250 mls/hr BID@0300,1500 WAYNE Administration Protocol Mupirocin 1 applic 04/23/17 22:00 04/27/17 09:42 Bactroban 2% Ointment - NS 04/28/17 21:59 1 applic BID WAYNE Administration Ondansetron HCl 4 mg 04/27/17 07:38 Zofran Injection IVPUSH Q6H PRN NAUSEA AND/OR VOMITING ASSESSMENT/PLAN: 61 year old female with sepsis and systemic, scaling skin rash w/ possibly vegetation on aortic valve Neuro: neurologically intact Cardiovascular: pt is mildly tachycardic likely due to pain and stress. Echo showed possible vegetation on aortic valve -continue phenylephrine -continue abx treatment for possible endocarditis, pending transfer to [facility] Pulmonary: intermittent SOB mildly improved, unable to R/o PE -continue O2 support 2L nasal canula -duoneb Q6 PRN -Bipap if respiratory function decreases -continue heparin drip in case PE ID: improving scaly skin rash with positive blood cultures and sepsis -continue vancomycin/meropenem -f/u with [facility] for transfer -ondensetron for nausea -continue aquaphor topically TID for desquamating skin rash FEN: patient's potassium was found to be elevated at 5.6 -given 1 dose of kayexalate, pt had 1 bowel movement -repeat potassium proph: -Heparin prophylaxis Problem List - Problems (1) Cellulitis Code(s): L03.90 - CELLULITIS, UNSPECIFIED Qualifiers: Site of cellulitis: unspecified site Qualified Code(s): L03.90 - Cellulitis, unspecified (2) Desquamated skin Code(s): R23.4 - CHANGES IN SKIN TEXTURE (3) Hypotension Code(s): I95.9 - HYPOTENSION, UNSPECIFIED (4) Sepsis Code(s): A41.9 - SEPSIS, UNSPECIFIED ORGANISM Qualifiers: Sepsis type: sepsis due to unspecified organism Qualified Code(s): A41.9 - Sepsis, unspecified organism Visit type - Emergency Visit Emergency Visit: No - New Patient This patient is new to me today: No - Critical Care Critical Care patient: Yes Total Critical Care Time (in minutes): 45 Critical Care Statement: The care of this patient involved high complexity decision making to prevent further life threatening deterioration of the patient 's condition and/or to evalute & treat vital organ system(s) failure or risk of failure.
--- NOTE | 2017-04-27 15:39 | PN ---
Teaching Attending Note Name of Resident: Markel Pulido ATTENDING PHYSICIAN STATEMENT I saw and evaluated the patient. I reviewed the resident's note and discussed the case with the resident. I agree with the resident's findings and plan as documented. SUBJECTIVE: Patient seen and examined in the ICU. Awake and alert. Skin lesions appear better. Spoke to Dermatology, hopefully skin biopsy results will be available tomorrow. Remains on Phenylephrine for hemodynamic support. Intake & Output 04/24/17 04/25/17 04/26/17 04/27/17 23:59 23:59 23:59 23:59 Intake Total 3730 5649 4075.6 1800 Output Total 1700 2600 4050 3900 Balance 2030 3049 25.6 -2100 Weight 355 lb 434 lb 4.97 oz 434 lb 15.552 oz 429 lb 3.84 oz Last Vital Signs Temp Pulse Resp BP Pulse Ox 99.4 F 106 H 22 111/49 98 04/27/17 10:00 04/27/17 13:21 04/27/17 12:00 04/27/17 13:21 04/27/17 09:00 Active Medications Acetaminophen (Tylenol Oral Solution -) 650 mg PO Q6H PRN PRN Reason: FEVER OR PAIN Last Admin: 04/26/17 00:22 Dose: 650 mg Albuterol/Ipratropium (Duoneb -) 1 amp NEB Q6H PRN PRN Reason: SHORTNESS OF BREATH Last Admin: 04/26/17 17:45 Dose: 1 amp Chlorhexidine Gluconate (Hibiclens For Decolonization -) 1 applic TP HS WAYNE Last Admin: 04/26/17 21:17 Dose: 1 applic Emollient Ointment (Aquaphor -) 1 applic TP TID WAYNE Last Admin: 04/27/17 06:50 Dose: 1 applic Heparin Sodium (Porcine) (Heparin -) 1,000 unit IVPUSH PRN PRN PRN Reason: Heparin Heparin Sodium (Porcine) (Heparin -) 5,000 unit IVPUSH PRN PRN PRN Reason: Heparin Last Admin: 04/26/17 08:30 Dose: 5,000 unit Meropenem 1 gm/ Dextrose 100 mls @ 200 mls/hr IVPB Q8H-IV WAYNE PRN Reason: Protocol Last Admin: 04/27/17 09:41 Dose: 200 mls/hr Phenylephrine HCl 20,000 mcg/ (Sodium Chloride) 250 mls @ 75 mls/hr IVPB ASDIR WAYNE; 100 MCG/MIN PRN Reason: Protocol Last Admin: 04/27/17 13:21 Dose: 37.5 mls/hr Clindamycin Phosphate (Cleocin 600 Mg Premix Ivpb -) 50 mls @ 100 mls/hr IVPB Q6H-IV WAYNE Last Admin: 04/27/17 09:42 Dose: 100 mls/hr Heparin Sodium (Porcine) 25, (000 unit/ Sodium Chloride) 500 mls @ 70 mls/hr IV TITR WAYNE; 3,500 UNIT/HR PRN Reason: Protocol Last Admin: 04/27/17 09:41 Dose: 66 mls/hr Vancomycin HCl 1,500 mg/ (Dextrose) 500 mls @ 250 mls/hr IVPB BID@0300,1500 WAYNE PRN Reason: Protocol Last Admin: 04/27/17 04:00 Dose: 250 mls/hr Mupirocin (Bactroban 2% Ointment -) 1 applic NS BID WAYNE Stop: 04/28/17 21:59 Last Admin: 04/27/17 09:42 Dose: 1 applic Ondansetron HCl (Zofran Injection) 4 mg IVPUSH Q6H PRN PRN Reason: NAUSEA AND/OR VOMITING Constitutional: Yes: Awake and alert, Anxious Eyes: Yes: WNL, Conjunctiva Clear, EOM Intact, PERRL (no rash involvement of face/eyes) HENT: Yes: Atraumatic, Normocephalic Neck: Yes: Supple, Trachea Midline. No: Lymphadenopathy, Tenderness Cardiovascular: Yes: Regular Rate and Rhythm, S1, S2, Other (distant) Respiratory: Yes: CTA Bilaterally, Diminished, On Nasal O2. No: Accessory Muscle Use, Wheezes Gastrointestinal: Yes: Soft, Abdomen, Obese ...Rectal Exam: Yes: WNL Renal/: Yes: Kaur Present. No: Vaginal Bleeding, Vaginal Discharge Breast(s): Yes: WNL Musculoskeletal: Yes: WNL Extremities: Yes: Erythema Edema: Yes Edema: LUE: 1+, RUE: 1+, LLE: 1+, RLE: 1+ Peripheral Pulses WNL: Yes Integumentary: Yes: Erythema, Skin Tear, Venous Stasis Changes, Other (diffuse macularpapular rash with desquamation of hand feet, some topical sloughing and significantly worse in folds and labial/perianal no necrosis, no bullae, no crepitus.). No: Petechiae Neurological: Yes: Alert, Oriented ...Motor Strength: WNL Psychiatric: Yes: Alert, Oriented Labs: Laboratory Results - last 24 hr 04/26/17 04/26/17 04/26/17 15:35 15:35 17:50 WBC RBC Hgb Hct MCV MCH MCHC RDW Plt Count MPV Neutrophils % Lymphocytes % Monocytes % Eosinophils % Basophils % Hypochromic-Microcytic Anisocytosis Microcytosis Retic Count PTT (Actin FS) 91.0 H Sodium 136 Potassium 5.6 H Chloride 101 Carbon Dioxide 35 H Anion Gap 0 L BUN 10 Creatinine 0.6 Creat Clearance w eGFR > 60 POC Glucometer 142.90890 Random Glucose 100 Calcium 7.5 L Phosphorus Magnesium Total Bilirubin 0.3 D AST 16 ALT 16 Alkaline Phosphatase 63 Total Protein 6.1 L Albumin 1.7 L 04/26/17 04/26/17 04/27/17 23:00 23:00 00:05 WBC RBC Hgb Hct MCV MCH MCHC RDW Plt Count MPV Neutrophils % Lymphocytes % Monocytes % Eosinophils % Basophils % Hypochromic-Microcytic Anisocytosis Microcytosis Retic Count PTT (Actin FS) 99.5 H Sodium Cancelled 136 Potassium Cancelled 5.7 H Chloride Cancelled 100 Carbon Dioxide Cancelled 31 Anion Gap Cancelled 5 L BUN Cancelled 9 Creatinine Cancelled 0.6 Creat Clearance w eGFR POC Glucometer Random Glucose Cancelled 115 H Calcium Cancelled 7.5 L Phosphorus Magnesium Total Bilirubin AST ALT Alkaline Phosphatase Total Protein Albumin 04/27/17 04/27/17 04/27/17 05:15 05:15 05:15 WBC 17.0 H RBC 4.40 Hgb 8.7 L Hct 30.4 L MCV 69.0 L MCH 19.9 L MCHC 28.8 L RDW 22.3 H Plt Count 281 MPV 8.9 Neutrophils % 70.3 Lymphocytes % 10.9 Monocytes % 4.3 Eosinophils % 13.7 H Basophils % 0.8 Hypochromic-Microcytic 3+ Anisocytosis 2+ Microcytosis 2+ Retic Count PTT (Actin FS) 63.1 H D Sodium 135 L Potassium 5.6 H Chloride 97 L Carbon Dioxide 33 H Anion Gap 5 L BUN 9 Creatinine 0.6 Creat Clearance w eGFR > 60 POC Glucometer Random Glucose 95 Calcium 7.6 L Phosphorus 2.8 D Magnesium 1.9 Total Bilirubin 0.3 AST 19 ALT 17 Alkaline Phosphatase 69 Total Protein 6.2 L Albumin 1.6 L 04/27/17 04/27/17 05:15 11:56 WBC RBC Hgb Hct MCV MCH MCHC RDW Plt Count MPV Neutrophils % Lymphocytes % Monocytes % Eosinophils % Basophils % Hypochromic-Microcytic Anisocytosis Microcytosis Retic Count 2.19 H PTT (Actin FS) Sodium Potassium Chloride Carbon Dioxide Anion Gap BUN Creatinine Creat Clearance w eGFR POC Glucometer 148.46932 Random Glucose Calcium Phosphorus Magnesium Total Bilirubin AST ALT Alkaline Phosphatase Total Protein Albumin Problem List - Problems (1) Cellulitis Code(s): L03.90 - CELLULITIS, UNSPECIFIED Qualifiers: Site of cellulitis: unspecified site Qualified Code(s): L03.90 - Cellulitis, unspecified (2) Desquamated skin Code(s): R23.4 - CHANGES IN SKIN TEXTURE (3) Sepsis Code(s): A41.9 - SEPSIS, UNSPECIFIED ORGANISM Qualifiers: Sepsis type: sepsis due to unspecified organism Qualified Code(s): A41.9 - Sepsis, unspecified organism (4) Drug-induced skin rash Code(s): L27.0 - GEN SKIN ERUPTION DUE TO DRUGS AND MEDS TAKEN INTERNALLY Assessment/Plan Pending skin biopsy -> hopefully should be available tomorrow IVF AC O2 as needed BD TX PRN Wean pressors Patient has been accepted to [facility], pending bed availability. Dr Caldwell Critical Care Time/MDM Note Total Critical Care Time: 35 Critical Care Statement: The care of this patient involved high complexity decision making to prevent further life threatening deterioration of the patient 's condition and/or to evalute & treat vital organ system(s) failure or risk of failure.
[2017-04-27] MEDS ORDERED: PT OWN MED DRAWER 7, Y5N ONE (19:45)
[2017-04-27] MEDS: CHLORHEXIDINE GLUCONATE 4% CLEANSER FOR DECOLONIZATION TP SCH (21:33)
[2017-04-27] MEDS: ACETAMINOPHEN 650 MG/20.3 ML ORAL SOLUTION (CUPS) PO PRN (23:22)
[2017-04-28] MEDS: PHENYLEPHRINE HCL 20,000 MCG in SODIUM CHLORIDE 248 ML IVPB SCH ×3 (01:00→22:22)
[2017-04-28] MEDS ORDERED: PT OWN MED DRAWER 7, Y5N ONE ×4 (02:38→18:44)
[2017-04-28] MEDS: VANCOMYCIN 1,500 MG in DEXTROSE 5%-WATER - 500 ML IVPB SCH ×2 (02:40→15:45)
[2017-04-28] MEDS: MEROPENEM 1 GM in DEXTROSE 5%-WATER - 100 ML IVPB SCH ×3 (02:41→17:15)
[2017-04-28] MEDS: CLINDAMYCIN 600MG PREMIX IVPB 50 ML IVPB SCH ×4 (04:00→21:13)
[2017-04-28] MEDS: MINERAL OIL/PET HY-PHL TOPICAL OINTMENT 454 GM JAR TP SCH ×3 (06:03→21:13)
[2017-04-28 06:06] LABS: SERUM IRON 15 ug/dL (27-159); TOTAL IRON BINDING CAPACITY 170 ug/dL (250-450); UIBC 155 ug/dL (131-425)
[2017-04-28 06:26] LABS: BASOPHIL 0.7 % (0-2.0); EOSINOPHIL 15.6 % (0-4.5); MCHC 28.9 g/dl (32.0-36.0); MEAN CELL VOLUME 68.6 fl (80-96); MEAN PLT VOLUME 8.9 fl (7.5-11.1); NEUTROPHILS 63.6 % (42.8-82.8); PLATELET COUNT 297 K/MM3 (134-434); WHITE BLOOD COUNT 15.1 K/mm3 (4.0-10.0)
[2017-04-28 06:39] LABS: MCH 19.8 pg (25.7-33.7)
[2017-04-28 06:53] LABS: ALBUMIN 1.7 g/dl (3.4-5.0); ANION GAP 2 (8-16); CALCIUM 7.9 mg/dL (8.5-10.1); CO2 35 mmol/L (21-32); GLUCOSE,RANDOM 103 mg/dL (74-106)
[2017-04-28 06:56] LABS: ALK PHOS 62 U/L (45-117); BILIRUBIN,TOTAL 0.2 mg/dL (0.2-1.0); CREATININE 0.5 mg/dL (0.55-1.02); SGOT/AST 17 U/L (15-37); SGPT/ALT 16 U/L (12-78); TOT PROT 6.3 g/dl (6.4-8.2)
[2017-04-28] MEDS: HEPARIN - 25,000 UNIT in SODIUM CHLORIDE 495 ML IV SCH ×2 (09:14→19:16)
[2017-04-28] MEDS: MUPIROCIN 2% TOPICAL OINTMENT 22 GM TUBE NS SCH ×2 (09:16)
[2017-04-28] MEDS ORDERED: PHENYLEPHRINE HCL 10 MG/1 ML SINGLE DOSE VIAL ONE ×3 (10:44→22:26)
[2017-04-28] MEDS: ALBUTEROL SO4 2.5/IPRATROPIUM 0.5 INH SOL 3 ML VIAL.NEB. NEB PRN ×2 (11:50→18:46)
[2017-04-28] MEDS: morphine CARPU-JECT 2 MG/1 ML DISP.SYRIN IVPUSH PRN (11:59)
--- NOTE | 2017-04-28 13:54 | PN ---
Teaching Attending Note Name of Resident: Markel Pulido ATTENDING PHYSICIAN STATEMENT I saw and evaluated the patient. I reviewed the resident's note and discussed the case with the resident. I agree with the resident's findings and plan as documented. SUBJECTIVE: Patient seen and examined in the ICU. Awake and alert. Skin lesions appear stable. Hopefully skin biopsy results will be available today. Remains on Phenylephrine for hemodynamic support. Intake & Output 04/25/17 04/26/17 04/27/17 04/28/17 23:59 23:59 23:59 23:59 Intake Total 5649 4075.6 4258 1734.8 Output Total 2600 4050 4425 1800 Balance 3049 25.6 -167 -65.2 Weight 434 lb 4.97 oz 434 lb 15.552 oz 429 lb 3.84 oz 432 lb 15.806 oz Active Medications Acetaminophen (Tylenol Oral Solution -) 650 mg PO Q6H PRN PRN Reason: FEVER OR PAIN Last Admin: 04/27/17 23:22 Dose: 650 mg Albuterol/Ipratropium (Duoneb -) 1 amp NEB Q6H PRN PRN Reason: SHORTNESS OF BREATH Last Admin: 04/26/17 17:45 Dose: 1 amp Chlorhexidine Gluconate (Hibiclens For Decolonization -) 1 applic TP HS WAYNE Last Admin: 04/27/17 21:33 Dose: 1 applic Emollient Ointment (Aquaphor -) 1 applic TP TID WAYNE Last Admin: 04/28/17 06:03 Dose: 1 applic Heparin Sodium (Porcine) (Heparin -) 1,000 unit IVPUSH PRN PRN PRN Reason: Heparin Heparin Sodium (Porcine) (Heparin -) 5,000 unit IVPUSH PRN PRN PRN Reason: Heparin Last Admin: 04/26/17 08:30 Dose: 5,000 unit Meropenem 1 gm/ Dextrose 100 mls @ 200 mls/hr IVPB Q8H-IV WAYNE PRN Reason: Protocol Last Admin: 04/28/17 09:14 Dose: 200 mls/hr Phenylephrine HCl 20,000 mcg/ (Sodium Chloride) 250 mls @ 75 mls/hr IVPB ASDIR WAYNE; 100 MCG/MIN PRN Reason: Protocol Last Admin: 04/28/17 10:52 Dose: 22.5 mls/hr Clindamycin Phosphate (Cleocin 600 Mg Premix Ivpb -) 50 mls @ 100 mls/hr IVPB Q6H-IV WAYNE Last Admin: 04/28/17 09:13 Dose: 100 mls/hr Heparin Sodium (Porcine) 25, (000 unit/ Sodium Chloride) 500 mls @ 70 mls/hr IV TITR WAYNE; 3,500 UNIT/HR PRN Reason: Protocol Last Admin: 04/28/17 09:14 Dose: 63 mls/hr Vancomycin HCl 1,500 mg/ (Dextrose) 500 mls @ 250 mls/hr IVPB BID@0300,1500 WAYNE PRN Reason: Protocol Last Admin: 04/28/17 02:40 Dose: 250 mls/hr Morphine Sulfate (Morphine Injection -) 2 mg IVPUSH Q4H PRN PRN Reason: PAIN Last Admin: 04/28/17 11:59 Dose: 2 mg Mupirocin (Bactroban 2% Ointment -) 1 applic NS BID WAYNE Stop: 04/28/17 21:59 Last Admin: 04/28/17 09:16 Dose: 1 applic Ondansetron HCl (Zofran Injection) 4 mg IVPUSH Q6H PRN PRN Reason: NAUSEA AND/OR VOMITING Constitutional: Yes: Awake and alert, NAD Eyes: Yes: WNL, Conjunctiva Clear, EOM Intact, PERRL (no rash involvement of face/eyes) HENT: Yes: Atraumatic, Normocephalic Neck: Yes: Supple, Trachea Midline. No: Lymphadenopathy, Tenderness Cardiovascular: Yes: Regular Rate and Rhythm, S1, S2, Other (distant) Respiratory: Yes: CTA Bilaterally, Diminished, On Nasal O2. No: Accessory Muscle Use, Wheezes Gastrointestinal: Yes: Soft, Abdomen, Obese ...Rectal Exam: Yes: WNL Renal/: Yes: Kaur Present. No: Vaginal Bleeding, Vaginal Discharge Breast(s): Yes: WNL Musculoskeletal: Yes: WNL Extremities: Yes: Erythema Edema: Yes Edema: LUE: 1+, RUE: 1+, LLE: 1+, RLE: 1+ Peripheral Pulses WNL: Yes Integumentary: Yes: Rash improving Neurological: Yes: Alert, Oriented ...Motor Strength: WNL Psychiatric: Yes: Alert, Oriented Labs: Laboratory Results - last 24 hr 04/27/17 04/27/17 04/28/17 05:15 21:31 05:45 WBC RBC Hgb Hct MCV MCH MCHC RDW Plt Count MPV Neutrophils % Lymphocytes % Monocytes % Eosinophils % Basophils % PTT (Actin FS) 77.5 H Sodium Potassium Chloride Carbon Dioxide Anion Gap BUN Creatinine Creat Clearance w eGFR POC Glucometer 151.48772 Random Glucose Calcium Iron 15 L TIBC 170 L Iron Saturation 9 L Total Bilirubin AST ALT Alkaline Phosphatase Total Protein Albumin Stool Occult Blood 04/28/17 04/28/17 04/28/17 05:45 05:45 06:00 WBC 15.1 H RBC 4.44 Hgb 8.8 L Hct 30.4 L MCV 68.6 L MCH 19.8 L MCHC 28.9 L RDW 22.0 H Plt Count 297 MPV 8.9 Neutrophils % 63.6 Lymphocytes % 15.1 D Monocytes % 5.0 Eosinophils % 15.6 H Basophils % 0.7 PTT (Actin FS) Sodium 134 L Potassium 4.8 Chloride 97 L Carbon Dioxide 35 H Anion Gap 2 L BUN 6 L D Creatinine 0.5 L Creat Clearance w eGFR > 60 POC Glucometer 138.91012 Random Glucose 103 Calcium 7.9 L Iron TIBC Iron Saturation Total Bilirubin 0.2 D AST 17 ALT 16 Alkaline Phosphatase 62 Total Protein 6.3 L Albumin 1.7 L Stool Occult Blood 04/28/17 07:00 WBC RBC Hgb Hct MCV MCH MCHC RDW Plt Count MPV Neutrophils % Lymphocytes % Monocytes % Eosinophils % Basophils % PTT (Actin FS) Sodium Potassium Chloride Carbon Dioxide Anion Gap BUN Creatinine Creat Clearance w eGFR POC Glucometer Random Glucose Calcium Iron TIBC Iron Saturation Total Bilirubin AST ALT Alkaline Phosphatase Total Protein Albumin Stool Occult Blood Negative Problem List - Problems (1) Cellulitis Code(s): L03.90 - CELLULITIS, UNSPECIFIED Qualifiers: Site of cellulitis: unspecified site Qualified Code(s): L03.90 - Cellulitis, unspecified (2) Desquamated skin Code(s): R23.4 - CHANGES IN SKIN TEXTURE (3) Sepsis Code(s): A41.9 - SEPSIS, UNSPECIFIED ORGANISM Qualifiers: Sepsis type: sepsis due to unspecified organism Qualified Code(s): A41.9 - Sepsis, unspecified organism (4) Drug-induced skin rash Code(s): L27.0 - GEN SKIN ERUPTION DUE TO DRUGS AND MEDS TAKEN INTERNALLY Assessment/Plan Pending skin biopsy -> hopefully should be available today IVF AC O2 as needed BD TX PRN Wean pressors Patient has been accepted to [facility], pending bed availability. Dr Caldwell Critical Care Time/MDM Note Total Critical Care Time: 35 Critical Care Statement: The care of this patient involved high complexity decision making to prevent further life threatening deterioration of the patient 's condition and/or to evalute & treat vital organ system(s) failure or risk of failure.
[2017-04-28] MEDS ORDERED: MAGNESIUM OXIDE 400 MG TABLET (FP) PO ONE (14:19)
--- NOTE | 2017-04-28 15:33 | PN ---
Progress Note, Physician History of Present Illness: patient looking much better rash much better patient much more awake and alert - Current Medication List Current Medications: Active Medications Acetaminophen (Tylenol Oral Solution -) 650 mg PO Q6H PRN PRN Reason: FEVER OR PAIN Last Admin: 04/27/17 23:22 Dose: 650 mg Albuterol/Ipratropium (Duoneb -) 1 amp NEB Q6H PRN PRN Reason: SHORTNESS OF BREATH Last Admin: 04/26/17 17:45 Dose: 1 amp Betamethasone Dipropionate (Diprosone 0.05% Ointment -) 1 applic TP BID WAYNE Chlorhexidine Gluconate (Hibiclens For Decolonization -) 1 applic TP HS WAYNE Last Admin: 04/27/17 21:33 Dose: 1 applic Emollient Ointment (Aquaphor -) 1 applic TP TID WAYNE Last Admin: 04/28/17 13:00 Dose: 1 applic Heparin Sodium (Porcine) (Heparin -) 1,000 unit IVPUSH PRN PRN PRN Reason: Heparin Heparin Sodium (Porcine) (Heparin -) 5,000 unit IVPUSH PRN PRN PRN Reason: Heparin Last Admin: 04/26/17 08:30 Dose: 5,000 unit Meropenem 1 gm/ Dextrose 100 mls @ 200 mls/hr IVPB Q8H-IV WAYNE PRN Reason: Protocol Last Admin: 04/28/17 09:14 Dose: 200 mls/hr Phenylephrine HCl 20,000 mcg/ (Sodium Chloride) 250 mls @ 75 mls/hr IVPB ASDIR WAYNE; 100 MCG/MIN PRN Reason: Protocol Last Admin: 04/28/17 10:52 Dose: 22.5 mls/hr Clindamycin Phosphate (Cleocin 600 Mg Premix Ivpb -) 50 mls @ 100 mls/hr IVPB Q6H-IV WAYNE Last Admin: 04/28/17 09:13 Dose: 100 mls/hr Heparin Sodium (Porcine) 25, (000 unit/ Sodium Chloride) 500 mls @ 70 mls/hr IV TITR WAYNE; 3,500 UNIT/HR PRN Reason: Protocol Last Admin: 04/28/17 09:14 Dose: 63 mls/hr Vancomycin HCl 1,500 mg/ (Dextrose) 500 mls @ 250 mls/hr IVPB BID@0300,1500 WAYNE PRN Reason: Protocol Last Admin: 04/28/17 02:40 Dose: 250 mls/hr Morphine Sulfate (Morphine Injection -) 2 mg IVPUSH Q4H PRN PRN Reason: PAIN Last Admin: 04/28/17 11:59 Dose: 2 mg Mupirocin (Bactroban 2% Ointment -) 1 applic NS BID WAYNE Stop: 04/28/17 21:59 Last Admin: 04/28/17 09:16 Dose: 1 applic Ondansetron HCl (Zofran Injection) 4 mg IVPUSH Q6H PRN PRN Reason: NAUSEA AND/OR VOMITING - Objective Vital Signs: Vital Signs Temperature 98.8 F 04/28/17 14:00 Pulse Rate 100 H 04/28/17 14:00 Respiratory Rate 22 04/28/17 14:00 Blood Pressure 133/58 04/28/17 14:00 O2 Sat by Pulse Oximetry (%) 98 04/28/17 11:20 Constitutional: Yes: No Distress, Calm, Obese (morbid) Cardiovascular: Yes: Regular Rate and Rhythm Respiratory: Yes: Regular, CTA Bilaterally, On Nasal O2 Gastrointestinal: Yes: Normal Bowel Sounds, Soft Musculoskeletal: Yes: Other Extremities: Yes: Other Edema: LLE: 1+, RLE: 1+ Integumentary: Yes: Rash (has improved) Neurological: Yes: Alert, Oriented Psychiatric: Yes: Alert Labs: CBC, BMP 04/28/17 05:45 04/28/17 05:45 INR, PTT INR 1.28 (0.82-1.09) H 04/23/17 11:40 Assessment/Plan - Problems (1) Cellulitis Code(s): L03.90 - CELLULITIS, UNSPECIFIED Qualifiers: Site of cellulitis: unspecified site Qualified Code(s): L03.90 - Cellulitis, unspecified (2) Desquamated skin Code(s): R23.4 - CHANGES IN SKIN TEXTURE (3) Sepsis Code(s): A41.9 - SEPSIS, UNSPECIFIED ORGANISM Qualifiers: Sepsis type: sepsis due to unspecified organism Qualified Code(s): A41.9 - Sepsis, unspecified organism (4) generalized rash 5 abd wall cellulitis morbid obesity sepsis septic shock gm positive bateremia patients rash has improved a lot blood cx results notes skin biopsy noted plan conitnue abx continue hydration continue skin care rest continue current mgmt continues to improve cc time 40 min
--- NOTE | 2017-04-28 15:34 | PN ---
Physical Exam: SUBJECTIVE: 61 year old female with a pmh of morbid obesity, systemic scaling rash in ICU for sepsis and resp failure. skin biopsy was taken on Thursday. Echo showed possible vegetation on aortic valve. Pt complains of chills and being very cold. OBJECTIVE: Vital Signs Period Temp Pulse Resp BP Sys/Jones Pulse Ox Last 24 Hr 98.4 F-99 F 99-111 18-30 104-144/39-87 98-98 GENERAL: The patient is awake, alert, and fully oriented, in no acute distress. HEAD: Normal with no signs of trauma. EYES: PERRL, extraocular movements intact, sclera anicteric, conjunctiva clear. No ptosis. ENT: Ears normal, nares patent, oropharynx clear without exudates, moist mucous membranes. NECK: Trachea midline, full range of motion, supple. LUNGS: Breath sounds equal, clear to auscultation bilaterally, no wheezes, no crackles, no accessory muscle use. HEART: Regular rate and rhythm, S1, S2 without murmur, rub or gallop. ABDOMEN: Soft, nontender, nondistended, normoactive bowel sounds, no guarding, no rebound, no hepatosplenomegaly, no masses. EXTREMITIES: 2+ pulses, warm, well-perfused, no edema. NEUROLOGICAL: Cranial nerves II through XII grossly intact. Normal speech, gait not observed. PSYCH: Normal mood, normal affect. SKIN: Warm, dry, normal turgor, desquamating lesions improving Laboratory Results - last 24 hr 04/27/17 04/27/17 04/28/17 05:15 21:31 05:45 WBC RBC Hgb Hct MCV MCH MCHC RDW Plt Count MPV Neutrophils % Lymphocytes % Monocytes % Eosinophils % Basophils % PTT (Actin FS) 77.5 H Sodium Potassium Chloride Carbon Dioxide Anion Gap BUN Creatinine Creat Clearance w eGFR POC Glucometer [phone] Random Glucose Calcium Iron 15 L TIBC 170 L Iron Saturation 9 L Total Bilirubin AST ALT Alkaline Phosphatase Total Protein Albumin Stool Occult Blood 04/28/17 04/28/17 04/28/17 05:45 05:45 06:00 WBC 15.1 H RBC 4.44 Hgb 8.8 L Hct 30.4 L MCV 68.6 L MCH 19.8 L MCHC 28.9 L RDW 22.0 H Plt Count 297 MPV 8.9 Neutrophils % 63.6 Lymphocytes % 15.1 D Monocytes % 5.0 Eosinophils % 15.6 H Basophils % 0.7 PTT (Actin FS) Sodium 134 L Potassium 4.8 Chloride 97 L Carbon Dioxide 35 H Anion Gap 2 L BUN 6 L D Creatinine 0.5 L Creat Clearance w eGFR > 60 POC Glucometer [phone] Random Glucose 103 Calcium 7.9 L Iron TIBC Iron Saturation Total Bilirubin 0.2 D AST 17 ALT 16 Alkaline Phosphatase 62 Total Protein 6.3 L Albumin 1.7 L Stool Occult Blood 04/28/17 07:00 WBC RBC Hgb Hct MCV MCH MCHC RDW Plt Count MPV Neutrophils % Lymphocytes % Monocytes % Eosinophils % Basophils % PTT (Actin FS) Sodium Potassium Chloride Carbon Dioxide Anion Gap BUN Creatinine Creat Clearance w eGFR POC Glucometer Random Glucose Calcium Iron TIBC Iron Saturation Total Bilirubin AST ALT Alkaline Phosphatase Total Protein Albumin Stool Occult Blood Negative Active Medications Generic Name Dose Route Start Last Admin Trade Name Freq PRN Reason Stop Dose Admin Acetaminophen 650 mg 04/23/17 15:31 04/27/17 23:22 Tylenol Oral Solution - PO 650 mg Q6H PRN Administration FEVER OR PAIN Albuterol/Ipratropium 1 amp 04/24/17 11:52 04/26/17 17:45 Duoneb - NEB 1 amp Q6H PRN Administration SHORTNESS OF BREATH Betamethasone Dipropionate 1 applic 04/28/17 22:00 Diprosone 0.05% Ointment - TP BID WYANE Chlorhexidine Gluconate 1 applic 04/23/17 22:00 04/27/17 21:33 Hibiclens For Decolonization - TP 1 applic HS WAYNE Administration Emollient Ointment 1 applic 04/25/17 14:00 04/28/17 13:00 Aquaphor - TP 1 applic TID WAYNE Administration Heparin Sodium (Porcine) 1,000 unit 04/26/17 08:55 Heparin - IVPUSH PRN PRN Heparin Heparin Sodium (Porcine) 5,000 unit 04/26/17 08:55 04/26/17 08:30 Heparin - IVPUSH 5,000 unit PRN PRN Administration Heparin Meropenem 1 gm/ Dextrose 100 mls @ 200 mls/hr 04/23/17 18:00 04/28/17 09:14 IVPB 200 mls/hr Q8H-IV WAYNE Administration Protocol Phenylephrine HCl 20,000 mcg/ 250 mls @ 75 mls/hr 04/25/17 04:15 04/28/17 10:52 Sodium Chloride IVPB 22.5 mls/hr ASDIR WAYNE Administration Protocol 100 MCG/MIN Clindamycin Phosphate 50 mls @ 100 mls/hr 04/25/17 10:15 04/28/17 09:13 Cleocin 600 Mg Premix Ivpb - IVPB 100 mls/hr Q6H-IV WAYNE Administration Heparin Sodium (Porcine) 25, 500 mls @ 70 mls/hr 04/26/17 09:00 04/28/17 09:14 000 unit/ Sodium Chloride IV 63 mls/hr TITR WAYNE Administration Protocol 3,500 UNIT/HR Vancomycin HCl 1,500 mg/ 500 mls @ 250 mls/hr 04/27/17 03:00 04/28/17 02:40 Dextrose IVPB 250 mls/hr BID@0300,1500 WAYNE Administration Protocol Morphine Sulfate 2 mg 04/28/17 11:22 04/28/17 11:59 Morphine Injection - IVPUSH 2 mg Q4H PRN Administration PAIN Mupirocin 1 applic 04/23/17 22:00 04/28/17 09:16 Bactroban 2% Ointment - NS 04/28/17 21:59 1 applic BID WAYNE Administration Ondansetron HCl 4 mg 04/27/17 07:38 Zofran Injection IVPUSH Q6H PRN NAUSEA AND/OR VOMITING ASSESSMENT/PLAN: 61 year old female with sepsis and improving systemic, scaling skin rash consistent with psoriasis w/ possible vegetation on aortic valve Neuro: neurologically intact Cardiovascular: pt is mildly tachycardic likely due to pain and stress. Echo showed possible vegetation on aortic valve - cardiology may want JESSE -continue phenylephrine -continue abx treatment for possible endocarditis, pending transfer to [facility] Pulmonary: intermittent SOB mildly improved, unable to R/o PE -continue O2 support 2L nasal canula -duoneb Q6 PRN -Bipap if respiratory function decreases -continue heparin drip in case PE ID: improving scaly skin rash with positive blood cultures and sepsis -continue vancomycin/meropenem/clindamycin -f/u with [facility] for transfer -ondensetron for nausea -continue aquaphor topically TID for desquamating skin rash Dermatology: pathology report revealed psoriatic dermatitis -begin betamethasone dipropionate topically in affected areas BID FEN: patient's potassium normalized -repeat potassium, magnesium, phos in AM proph: -Heparin prophylaxis Problem List - Problems (1) Cellulitis Code(s): L03.90 - CELLULITIS, UNSPECIFIED Qualifiers: Qualified Code(s): L03.90 - Cellulitis, unspecified (2) Desquamated skin Code(s): R23.4 - CHANGES IN SKIN TEXTURE (3) Hypotension Code(s): I95.9 - HYPOTENSION, UNSPECIFIED (4) Sepsis Code(s): A41.9 - SEPSIS, UNSPECIFIED ORGANISM Qualifiers: Qualified Code(s): A41.9 - Sepsis, unspecified organism Visit type - Emergency Visit Emergency Visit: No - New Patient This patient is new to me today: No - Critical Care Critical Care patient: Yes Total Critical Care Time (in minutes): 45 Critical Care Statement: The care of this patient involved high complexity decision making to prevent further life threatening deterioration of the patient 's condition and/or to evalute & treat vital organ system(s) failure or risk of failure.
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
[2017-04-28] MEDS: CHLORHEXIDINE GLUCONATE 4% CLEANSER FOR DECOLONIZATION TP SCH (21:13)
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
[2017-04-29] MEDS ORDERED: PT OWN MED DRAWER 7, Y5N ONE ×4 (02:42→21:08)
[2017-04-29] MEDS: MEROPENEM 1 GM in DEXTROSE 5%-WATER - 100 ML IVPB SCH ×3 (02:46→18:13)
[2017-04-29] MEDS: CLINDAMYCIN 600MG PREMIX IVPB 50 ML IVPB SCH ×4 (02:46→21:12)
[2017-04-29] MEDS: HEPARIN - 25,000 UNIT in SODIUM CHLORIDE 495 ML IV SCH ×2 (02:53→11:00)
[2017-04-29] MEDS: VANCOMYCIN 1,500 MG in DEXTROSE 5%-WATER - 500 ML IVPB SCH ×2 (03:44→14:59)
[2017-04-29 06:35] LABS: BASOPHIL 0.5 % (0-2.0); EOSINOPHIL 15.3 % (0-4.5); MCHC 28.6 g/dl (32.0-36.0); MEAN CELL VOLUME 69.6 fl (80-96); MEAN PLT VOLUME 8.7 fl (7.5-11.1); NEUTROPHILS 65.5 % (42.8-82.8); PLATELET COUNT 294 K/MM3 (134-434); RDW 22.1 % (11.6-15.6); WHITE BLOOD COUNT 13.1 K/mm3 (4.0-10.0)
[2017-04-29 06:52] LABS: ALBUMIN 1.7 g/dl (3.4-5.0); ANION GAP 1 (8-16); CALCIUM 7.9 mg/dL (8.5-10.1); CO2 37 mmol/L (21-32); CREATININE 0.5 mg/dL (0.55-1.02); GLUCOSE,RANDOM 111 mg/dL (74-106); MAGNESIUM 1.8 mg/dL (1.8-2.4); PHOSPHOROUS 3.4 mg/dL (2.5-4.9); SGOT/AST 16 U/L (15-37); SGPT/ALT 15 U/L (12-78)
[2017-04-29 06:54] LABS: ALK PHOS 63 U/L (45-117); BILIRUBIN,TOTAL 0.2 mg/dL (0.2-1.0); TOT PROT 6.5 g/dl (6.4-8.2)
[2017-04-29] MEDS: MINERAL OIL/PET HY-PHL TOPICAL OINTMENT 454 GM JAR TP SCH ×3 (07:00→21:15)
[2017-04-29] MEDS: PHENYLEPHRINE HCL 20,000 MCG in SODIUM CHLORIDE 248 ML IVPB SCH ×2 (07:00→13:22)
[2017-04-29 07:14] LABS: MCH 19.9 pg (25.7-33.7)
[2017-04-29] MEDS: BETAMETHASONE DIPR 0.05% OINTMENT 15 GM TUBE TP SCH ×3 (09:20→21:16)
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
[2017-04-29] MEDS ORDERED: guaiFENesin/D-M SUGAR-FREE/ACLHOL-FREE 118 ML BOTTLE PO PRN (11:50)
[2017-04-29] MEDS: ALBUTEROL SO4 2.5/IPRATROPIUM 0.5 INH SOL 3 ML VIAL.NEB. NEB SCH ×2 (12:00→17:30)
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
[2017-04-29] MEDS ORDERED: PHENYLEPHRINE HCL 10 MG/1 ML SINGLE DOSE VIAL ONE (13:16)
[2017-04-29 14:14] LABS: Hgb A2 1.8 % (0.7-3.1)
--- NOTE | 2017-04-29 15:00 | PN ---
Teaching Attending Note Name of Resident: Markel Pulido ATTENDING PHYSICIAN STATEMENT I saw and evaluated the patient. I reviewed the resident's note and discussed the case with the resident. I agree with the resident's findings and plan as documented. SUBJECTIVE: Pt seen and examined in the ICU. Remains on phenylephrine gtt but lower dose. No fevers recorded. OBJECTIVE: Last Vital Signs Temp Pulse Resp BP Pulse Ox 99.3 F 104 H 23 117/54 98 04/29/17 10:00 04/29/17 13:22 04/29/17 12:00 04/29/17 13:22 04/29/17 14:30 Intake & Output 04/26/17 04/27/17 04/28/17 04/29/17 23:59 23:59 23:59 23:59 Intake Total 4075.6 4258 3585.8 1934 Output Total 4050 4425 3600 Balance 25.6 -167 -14.2 1934 Weight 434 lb 15.552 oz 429 lb 3.84 oz 432 lb 15.806 oz Gen: NAD at rest Heart: tachycardic, regular Lung: decreased breath sounds at the bases Abd: soft, obese, nontender Ext: + edema CBC, BMP 04/29/17 05:30 04/29/17 05:30 Active Medications Acetaminophen (Tylenol Oral Solution -) 650 mg PO Q6H PRN PRN Reason: FEVER OR PAIN Last Admin: 04/27/17 23:22 Dose: 650 mg Albuterol/Ipratropium (Duoneb -) 1 amp NEB QIDR [facility] Last Admin: 04/29/17 12:00 Dose: 1 amp Betamethasone Dipropionate (Diprosone 0.05% Ointment -) 1 applic TP BID [facility] Last Admin: 04/29/17 09:20 Dose: 1 applic Chlorhexidine Gluconate (Hibiclens For Decolonization -) 1 applic TP HS [facility] Last Admin: 04/28/17 21:13 Dose: Not Given Emollient Ointment (Aquaphor -) 1 applic TP TID [facility] Last Admin: 04/29/17 13:24 Dose: 1 applic Guaifenesin (Diabetic Tussin Dm -) 10 ml PO Q4H PRN PRN Reason: COUGH Heparin Sodium (Porcine) (Heparin -) 1,000 unit IVPUSH PRN PRN PRN Reason: Heparin Heparin Sodium (Porcine) (Heparin -) 5,000 unit IVPUSH PRN PRN PRN Reason: Heparin Last Admin: 04/26/17 08:30 Dose: 5,000 unit Meropenem 1 gm/ Dextrose 100 mls @ 200 mls/hr IVPB Q8H-IV WAYNE PRN Reason: Protocol Last Admin: 04/29/17 09:09 Dose: 200 mls/hr Phenylephrine HCl 20,000 mcg/ (Sodium Chloride) 250 mls @ 75 mls/hr IVPB ASDIR WAYNE; 100 MCG/MIN PRN Reason: Protocol Last Admin: 04/29/17 13:22 Dose: 15 mls/hr Clindamycin Phosphate (Cleocin 600 Mg Premix Ivpb -) 50 mls @ 100 mls/hr IVPB Q6H-IV WAYNE Last Admin: 04/29/17 09:06 Dose: 100 mls/hr Heparin Sodium (Porcine) 25, (000 unit/ Sodium Chloride) 500 mls @ 70 mls/hr IV TITR WAYNE; 3,500 UNIT/HR PRN Reason: Protocol Last Admin: 04/29/17 11:00 Dose: 62 mls/hr Vancomycin HCl 1,500 mg/ (Dextrose) 500 mls @ 250 mls/hr IVPB BID@0300,1500 WAY[facility] PRN Reason: Protocol Last Admin: 04/29/17 03:44 Dose: 250 mls/hr Morphine Sulfate (Morphine Injection -) 2 mg IVPUSH Q4H PRN PRN Reason: PAIN Last Admin: 04/28/17 11:59 Dose: 2 mg Ondansetron HCl (Zofran Injection) 4 mg IVPUSH Q6H PRN PRN Reason: NAUSEA AND/OR VOMITING ASSESSMENT AND PLAN: Cellulitis Gram Positive Bacteremia Septic Shock Morbid Obesity Chronic Hypercapneic Respiratory Failure Likely LYLY/OHS h/o Asthma - antibiotics per ID - f/u pending cultures - taper off pressors, maintain MAP >65 - skin/wound care - low suspicion for PE, defer anticoagulation to primary team - f/u biopsy results - inhaled bronchodilators - outpt PFTs, PSG - continue ICU monitoring as pt remains on pressors critical care time spent in reviewing chart, evaluating patient and formulating plan 35 min
--- NOTE | 2017-04-29 17:46 | PN ---
Progress Note, Physician History of Present Illness: patient looking much better much more awake and alert - Current Medication List Current Medications: Active Medications Acetaminophen (Tylenol Oral Solution -) 650 mg PO Q6H PRN PRN Reason: FEVER OR PAIN Last Admin: 04/27/17 23:22 Dose: 650 mg Albuterol/Ipratropium (Duoneb -) 1 amp NEB QIDR [facility] Last Admin: 04/29/17 12:00 Dose: 1 amp Betamethasone Dipropionate (Diprosone 0.05% Ointment -) 1 applic TP BID [facility] Last Admin: 04/29/17 09:20 Dose: 1 applic Chlorhexidine Gluconate (Hibiclens For Decolonization -) 1 applic TP HS [facility] Last Admin: 04/28/17 21:13 Dose: Not Given Emollient Ointment (Aquaphor -) 1 applic TP TID [facility] Last Admin: 04/29/17 13:24 Dose: 1 applic Guaifenesin (Diabetic Tussin Dm -) 10 ml PO Q4H PRN PRN Reason: COUGH Heparin Sodium (Porcine) (Heparin -) 1,000 unit IVPUSH PRN PRN PRN Reason: Heparin Heparin Sodium (Porcine) (Heparin -) 5,000 unit IVPUSH PRN PRN PRN Reason: Heparin Last Admin: 04/26/17 08:30 Dose: 5,000 unit Meropenem 1 gm/ Dextrose 100 mls @ 200 mls/hr IVPB Q8H-IV [facility] PRN Reason: Protocol Last Admin: 04/29/17 09:09 Dose: 200 mls/hr Phenylephrine HCl 20,000 mcg/ (Sodium Chloride) 250 mls @ 75 mls/hr IVPB ASDIR [facility]; 100 MCG/MIN PRN Reason: Protocol Last Admin: 04/29/17 13:22 Dose: 15 mls/hr Clindamycin Phosphate (Cleocin 600 Mg Premix Ivpb -) 50 mls @ 100 mls/hr IVPB Q6H-IV [facility] Last Admin: 04/29/17 14:59 Dose: 100 mls/hr Heparin Sodium (Porcine) 25, (000 unit/ Sodium Chloride) 500 mls @ 70 mls/hr IV TITR [facility]; 3,500 UNIT/HR PRN Reason: Protocol Last Admin: 04/29/17 11:00 Dose: 62 mls/hr Vancomycin HCl 1,500 mg/ (Dextrose) 500 mls @ 250 mls/hr IVPB BID@0300,1500 [facility] PRN Reason: Protocol Last Admin: 04/29/17 14:59 Dose: 250 mls/hr Morphine Sulfate (Morphine Injection -) 2 mg IVPUSH Q4H PRN PRN Reason: PAIN Last Admin: 04/28/17 11:59 Dose: 2 mg Ondansetron HCl (Zofran Injection) 4 mg IVPUSH Q6H PRN PRN Reason: NAUSEA AND/OR VOMITING - Objective Vital Signs: Vital Signs Temperature 99.0 F 04/29/17 14:00 Pulse Rate 105 H 04/29/17 14:00 Respiratory Rate 30 H 04/29/17 14:00 Blood Pressure 139/62 04/29/17 14:00 O2 Sat by Pulse Oximetry (%) 98 04/29/17 14:30 Constitutional: Yes: No Distress, Calm Cardiovascular: Yes: Regular Rate and Rhythm Respiratory: Yes: Regular, On Nasal O2, Poor Air Entry Gastrointestinal: Yes: Normal Bowel Sounds, Soft, Other (abd cellulitits) Musculoskeletal: Yes: Other Extremities: Yes: Other Neurological: Yes: Alert, Oriented Psychiatric: Yes: Alert Labs: CBC, BMP 04/29/17 05:30 04/29/17 05:30 INR, PTT INR 1.28 (0.82-1.09) H 04/23/17 11:40 Assessment/Plan - Problems (1) Cellulitis Code(s): L03.90 - CELLULITIS, UNSPECIFIED Qualifiers: Site of cellulitis: unspecified site Qualified Code(s): L03.90 - Cellulitis, unspecified (2) Desquamated skin Code(s): R23.4 - CHANGES IN SKIN TEXTURE (3) Sepsis Code(s): A41.9 - SEPSIS, UNSPECIFIED ORGANISM Qualifiers: Sepsis type: sepsis due to unspecified organism Qualified Code(s): A41.9 - Sepsis, unspecified organism (4) generalized rash 5 abd wall cellulitis morbid obesity sepsis septic shock gm positive bateremia patients rash has improved a lot blood cx results notes skin biopsy noted plan conitnue abx continue hydration continue skin care rest continue current mgmt continues to improve will stop vanco cc time 40 min
[2017-04-29] MEDS: CHLORHEXIDINE GLUCONATE 4% CLEANSER FOR DECOLONIZATION TP SCH (21:16)
[2017-04-29] MEDS: morphine CARPU-JECT 2 MG/1 ML DISP.SYRIN IVPUSH PRN (22:39)
[2017-04-30] MEDS: ALBUTEROL SO4 2.5/IPRATROPIUM 0.5 INH SOL 3 ML VIAL.NEB. NEB SCH ×5 (00:20→23:33)
[2017-04-30] MEDS: MEROPENEM 1 GM in DEXTROSE 5%-WATER - 100 ML IVPB SCH ×3 (01:27→17:01)
[2017-04-30] MEDS: CLINDAMYCIN 600MG PREMIX IVPB 50 ML IVPB SCH ×4 (02:05→21:53)
[2017-04-30] MEDS: PHENYLEPHRINE HCL 20,000 MCG in SODIUM CHLORIDE 248 ML IVPB SCH (05:17)
[2017-04-30 06:25] LABS: MCHC 28.6 g/dl (32.0-36.0); MEAN CELL VOLUME 70.1 fl (80-96); PLATELET COUNT 288 K/MM3 (134-434); RDW 22.6 % (11.6-15.6); WHITE BLOOD COUNT 11.7 K/mm3 (4.0-10.0)
[2017-04-30 06:50] LABS: ANION GAP 2 (8-16); CALCIUM 8.3 mg/dL (8.5-10.1); CO2 39 mmol/L (21-32); GLUCOSE,RANDOM 106 mg/dL (74-106)
[2017-04-30 06:52] LABS: CREATININE 0.5 mg/dL (0.55-1.02); PHOSPHOROUS 3.9 mg/dL (2.5-4.9)
[2017-04-30] MEDS: MINERAL OIL/PET HY-PHL TOPICAL OINTMENT 454 GM JAR TP SCH ×3 (07:00→21:53)
[2017-04-30 09:07] LABS: CPK 24 IU/L (26-192)
[2017-04-30] MEDS: BETAMETHASONE DIPR 0.05% OINTMENT 15 GM TUBE TP SCH ×2 (09:29→21:54)
[2017-04-30] MEDS: HEPARIN - 25,000 UNIT in SODIUM CHLORIDE 495 ML IV SCH ×3 (09:30→23:31)
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
[2017-04-30] MEDS ORDERED: ASCORBIC ACID 500 MG TABLET (FP) PO SCH (12:00)
[2017-04-30] MEDS ORDERED: SODIUM POLYSTYRENE SULFONATE 15 GM/60 ML BOTTLE PO ONE (12:00)
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
--- NOTE | 2017-04-30 12:37 | PN ---
Teaching Attending Note Name of Resident: Markel Pulido ATTENDING PHYSICIAN STATEMENT I saw and evaluated the patient. I reviewed the resident's note and discussed the case with the resident. I agree with the resident's findings and plan as documented. SUBJECTIVE: Patient seen and examined in the ICU. Awake and alert. Skin lesions appear better overall. Currently off pressors. Still with some pruritus on her back and buttocks. Denies CP or SOB. Intake & Output 04/27/17 04/28/17 04/29/17 04/30/17 23:59 23:59 23:59 23:59 Intake Total 4258 3585.8 4169 644 Output Total 4425 3600 1200 1900 Balance -167 -14.2 2969 -1256 Weight 429 lb 3.84 oz 432 lb 15.806 oz Last Vital Signs Temp Pulse Resp BP Pulse Ox 98.2 F 109 H 24 139/56 100 04/30/17 02:00 04/30/17 10:20 04/30/17 12:00 04/30/17 12:00 04/30/17 07:53 Active Medications Acetaminophen (Tylenol Oral Solution -) 650 mg PO Q6H PRN PRN Reason: FEVER OR PAIN Last Admin: 04/27/17 23:22 Dose: 650 mg Albuterol/Ipratropium (Duoneb -) 1 amp NEB QIDR [facility] Last Admin: 04/30/17 12:15 Dose: 1 amp Ascorbic Acid (Vitamin C -) 500 mg PO DAILY [facility] Betamethasone Dipropionate (Diprosone 0.05% Ointment -) 1 applic TP BID [facility] Last Admin: 04/30/17 09:29 Dose: 1 applic Chlorhexidine Gluconate (Hibiclens For Decolonization -) 1 applic TP HS [facility] Last Admin: 04/29/17 21:16 Dose: Not Given Docusate Sodium (Colace -) 100 mg PO BID [facility] Emollient Ointment (Aquaphor -) 1 applic TP TID [facility] Last Admin: 04/30/17 07:00 Dose: 1 applic Ferrous Sulfate (Feosol -) 325 mg PO TIDCM [facility] Guaifenesin (Diabetic Tussin Dm -) 10 ml PO Q4H PRN PRN Reason: COUGH Heparin Sodium (Porcine) (Heparin -) 1,000 unit IVPUSH PRN PRN PRN Reason: Heparin Heparin Sodium (Porcine) (Heparin -) 5,000 unit IVPUSH PRN PRN PRN Reason: Heparin Last Admin: 04/26/17 08:30 Dose: 5,000 unit Meropenem 1 gm/ Dextrose 100 mls @ 200 mls/hr IVPB Q8H-IV [facility] PRN Reason: Protocol Last Admin: 04/30/17 09:32 Dose: 200 mls/hr Phenylephrine HCl 20,000 mcg/ (Sodium Chloride) 250 mls @ 75 mls/hr IVPB ASDIR [facility]; 100 MCG/MIN PRN Reason: Protocol Last Admin: 04/30/17 05:17 Dose: Not Given Clindamycin Phosphate (Cleocin 600 Mg Premix Ivpb -) 50 mls @ 100 mls/hr IVPB Q6H-IV [facility] Last Admin: 04/30/17 09:27 Dose: 100 mls/hr Heparin Sodium (Porcine) 25, (000 unit/ Sodium Chloride) 500 mls @ 70 mls/hr IV TITR [facility]; 3,500 UNIT/HR PRN Reason: Protocol Last Admin: 04/30/17 09:30 Dose: 62 mls/hr Ondansetron HCl (Zofran Injection) 4 mg IVPUSH Q6H PRN PRN Reason: NAUSEA AND/OR VOMITING Sodium Polystyrene Sulfonate (Kayexalate -) 15 gm PO ONCE ONE Stop: 05/01/17 11:47 Warfarin Sodium (Coumadin -) 7.5 mg PO DAILY@1800 [facility] Constitutional: Yes: Awake and alert, NAD Eyes: Yes: WNL, Conjunctiva Clear, EOM Intact, PERRL (no rash involvement of face/eyes) HENT: Yes: Atraumatic, Normocephalic Neck: Yes: Supple, Trachea Midline. No: Lymphadenopathy, Tenderness Cardiovascular: Yes: Regular Rate and Rhythm, S1, S2, Other (distant) Respiratory: Yes: CTA Bilaterally, Diminished, On Nasal O2. No: Accessory Muscle Use, Wheezes Gastrointestinal: Yes: Soft, Abdomen, Obese ...Rectal Exam: Yes: WNL Renal/: Yes: Kaur Present. No: Vaginal Bleeding, Vaginal Discharge Breast(s): Yes: WNL Musculoskeletal: Yes: WNL Extremities: Yes: Erythema Edema: Yes Edema: LUE: 1+, RUE: 1+, LLE: 1+, RLE: 1+ Peripheral Pulses WNL: Yes Integumentary: Yes: Rash improving Neurological: Yes: Alert, Oriented ...Motor Strength: WNL Psychiatric: Yes: Alert, Oriented Labs: Laboratory Results - last 24 hr 04/27/17 04/29/17 04/30/17 05:15 22:38 05:15 WBC 11.7 H RBC 4.33 Hgb 8.7 L Hct 30.4 L MCV 70.1 L MCH 20.0 L MCHC 28.6 L RDW 22.6 H Plt Count 288 MPV 9.0 Nucleated RBCs Cancelled Hypersegmented Neuts Cancelled Toxic Granulation Cancelled Dohle Bodies Cancelled Racquel Rods Cancelled Polychromasia Cancelled Hypochromic-Microcytic Cancelled Poikilocytosis Cancelled Basophilic Stippling Cancelled Anisocytosis Cancelled Microcytosis Cancelled Macrocytosis Cancelled Spherocytes Cancelled Siderocytes Cancelled Sickle Cells Cancelled Target Cells Cancelled Tear Drop Cells Cancelled Ovalocytes Cancelled Stomatocytes Cancelled Helmet Cells Cancelled Son-Wolverine Bodies Cancelled Pike Rings Cancelled Kory Cells Cancelled Acanthocytes (Spur) Cancelled Rouleaux Cancelled Fragmented RBCs Cancelled Schistocytes Cancelled Morphology Comment Cancelled Hemoglobin A 98.2 H Hemoglobin A2 1.8 Hemoglobin C 0 Hemoglobin S 0 Variant Hemoglobin TNP Hemoglobin Interpret Maternal Rh 0 Hemoglobin Solubility Negative PTT (Actin FS) Sodium Potassium Chloride Carbon Dioxide Anion Gap BUN Creatinine POC Glucometer [phone] Random Glucose Calcium Phosphorus Magnesium Iron 15 L TIBC 170 L Iron Saturation 9 L Creatine Kinase 04/30/17 04/30/17 04/30/17 05:15 05:15 05:33 WBC RBC Hgb Hct MCV MCH MCHC RDW Plt Count MPV Nucleated RBCs Hypersegmented Neuts Toxic Granulation Dohle Bodies Racquel Rods Polychromasia Hypochromic-Microcytic Poikilocytosis Basophilic Stippling Anisocytosis Microcytosis Macrocytosis Spherocytes Siderocytes Sickle Cells Target Cells Tear Drop Cells Ovalocytes Stomatocytes Helmet Cells Son-Wolverine Bodies Pike Rings Kory Cells Acanthocytes (Spur) Rouleaux Fragmented RBCs Schistocytes Morphology Comment Hemoglobin A Hemoglobin A2 Hemoglobin C Hemoglobin S Variant Hemoglobin Hemoglobin Interpret Maternal Rh Hemoglobin Solubility PTT (Actin FS) 66.6 H Sodium 137 Potassium 5.3 H Chloride 96 L Carbon Dioxide 39 H Anion Gap 2 L BUN 5 L D Creatinine 0.5 L POC Glucometer [phone] Random Glucose 106 Calcium 8.3 L Phosphorus 3.9 Magnesium 2.0 Iron TIBC Iron Saturation Creatine Kinase 24 L Problem List - Problems (1) Cellulitis Code(s): L03.90 - CELLULITIS, UNSPECIFIED Qualifiers: Site of cellulitis: unspecified site Qualified Code(s): L03.90 - Cellulitis, unspecified (2) Desquamated skin Code(s): R23.4 - CHANGES IN SKIN TEXTURE (3) Sepsis Code(s): A41.9 - SEPSIS, UNSPECIFIED ORGANISM Qualifiers: Sepsis type: sepsis due to unspecified organism Qualified Code(s): A41.9 - Sepsis, unspecified organism (4) Drug-induced skin rash Code(s): L27.0 - GEN SKIN ERUPTION DUE TO DRUGS AND MEDS TAKEN INTERNALLY Assessment/Plan IVF AC -> as there was a high concern for VTE and due to her body habitus -> diagnostic imaging cannot be performed O2 as needed Currently off pressors BD [place] PRN Dr Caldwell Total Critical Care Time: 35 Critical Care Statement: The care of this patient involved high complexity decision making to prevent further life threatening deterioration of the patient 's condition and/or to evalute & treat vital organ system(s) failure or risk of failure.
[2017-04-30] MEDS: FERROUS SO4 325 MG TABLET (FP) PO SCH ×2 (13:42→17:01)
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
--- NOTE | 2017-04-30 15:39 | PN ---
Progress Note, Physician History of Present Illness: patient looking much better much more awake and alert no complaints abd swelling decreasing - Current Medication List Current Medications: Active Medications Acetaminophen (Tylenol Oral Solution -) 650 mg PO Q6H PRN PRN Reason: FEVER OR PAIN Last Admin: 04/27/17 23:22 Dose: 650 mg Albuterol/Ipratropium (Duoneb -) 1 amp NEB QIDR [facility] Last Admin: 04/30/17 12:15 Dose: 1 amp Ascorbic Acid (Vitamin C -) 500 mg PO DAILY [facility] Betamethasone Dipropionate (Diprosone 0.05% Ointment -) 1 applic TP BID [facility] Last Admin: 04/30/17 09:29 Dose: 1 applic Chlorhexidine Gluconate (Hibiclens For Decolonization -) 1 applic TP HS [facility] Last Admin: 04/29/17 21:16 Dose: Not Given Docusate Sodium (Colace -) 100 mg PO BID [facility] Emollient Ointment (Aquaphor -) 1 applic TP TID [facility] Last Admin: 04/30/17 13:42 Dose: 1 applic Ferrous Sulfate (Feosol -) 325 mg PO TIDCM [facility] Last Admin: 04/30/17 13:42 Dose: 325 mg Guaifenesin (Diabetic Tussin Dm -) 10 ml PO Q4H PRN PRN Reason: COUGH Heparin Sodium (Porcine) (Heparin -) 1,000 unit IVPUSH PRN PRN PRN Reason: Heparin Heparin Sodium (Porcine) (Heparin -) 5,000 unit IVPUSH PRN PRN PRN Reason: Heparin Last Admin: 04/26/17 08:30 Dose: 5,000 unit Meropenem 1 gm/ Dextrose 100 mls @ 200 mls/hr IVPB Q8H-IV [facility] PRN Reason: Protocol Last Admin: 04/30/17 09:32 Dose: 200 mls/hr Phenylephrine HCl 20,000 mcg/ (Sodium Chloride) 250 mls @ 75 mls/hr IVPB ASDIR [facility]; 100 MCG/MIN PRN Reason: Protocol Last Admin: 04/30/17 05:17 Dose: Not Given Clindamycin Phosphate (Cleocin 600 Mg Premix Ivpb -) 50 mls @ 100 mls/hr IVPB Q6H-IV [facility] Last Admin: 04/30/17 15:05 Dose: 100 mls/hr Heparin Sodium (Porcine) 25, (000 unit/ Sodium Chloride) 500 mls @ 70 mls/hr IV TITR WAY[facility]; 3,500 UNIT/HR PRN Reason: Protocol Last Admin: 04/30/17 14:56 Dose: 62 mls/hr Ondansetron HCl (Zofran Injection) 4 mg IVPUSH Q6H PRN PRN Reason: NAUSEA AND/OR VOMITING Warfarin Sodium (Coumadin -) 7.5 mg PO DAILY@1800 [facility] - Objective Vital Signs: Vital Signs Temperature 99.1 F 04/30/17 14:00 Pulse Rate 109 H 04/30/17 14:00 Respiratory Rate 24 04/30/17 14:00 Blood Pressure 95/59 04/30/17 14:00 O2 Sat by Pulse Oximetry (%) 100 04/30/17 07:53 Constitutional: Yes: No Distress, Calm, Obese Cardiovascular: Yes: Regular Rate and Rhythm Respiratory: Yes: Poor Air Entry, Rhonchi Gastrointestinal: Yes: Normal Bowel Sounds, Soft Musculoskeletal: Yes: Other Extremities: Yes: Other Integumentary: Yes: Rash (as explained in previosu noted) Neurological: Yes: Alert, Oriented Psychiatric: Yes: Alert Labs: CBC, BMP 04/30/17 05:15 04/30/17 05:15 INR, PTT INR 1.28 (0.82-1.09) H 04/23/17 11:40 Assessment/Plan - Problems (1) Cellulitis Code(s): L03.90 - CELLULITIS, UNSPECIFIED Qualifiers: Site of cellulitis: unspecified site Qualified Code(s): L03.90 - Cellulitis, unspecified (2) Desquamated skin Code(s): R23.4 - CHANGES IN SKIN TEXTURE (3) Sepsis Code(s): A41.9 - SEPSIS, UNSPECIFIED ORGANISM Qualifiers: Sepsis type: sepsis due to unspecified organism Qualified Code(s): A41.9 - Sepsis, unspecified organism (4) generalized rash 5 abd wall cellulitis morbid obesity sepsis septic shock gm positive bateremia patients rash has improved a lot blood cx results notes skin biopsy noted plan conitnue abx continue hydration continue skin care rest continue current mgmt continues to improve patient improving cc time 40 min
[2017-04-30] MEDS ORDERED: PT OWN MED DRAWER 7, Y5N ONE (16:27)
[2017-04-30] MEDS: WARFARIN NA 7.5 MG TABLET (FP) PO SCH (17:04)
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
[2017-04-30] MEDS ORDERED: WARFARIN NA 5 MG TABLET (UD) PO SCH (18:00)
[2017-04-30] MEDS ORDERED: ALBUTEROL SO4 0.083% IH SOL 2.5 MG/3 ML VIAL.NEB. NEB ONE ×2 (20:18→20:24)
[2017-04-30] MEDS ORDERED: methylPREDNISolone NA SUCC 125 MG/2 ML VIAL IVPB STA (20:19)
[2017-04-30] MEDS ORDERED: ALBUTEROL SO4 0.083% IH SOL 2.5 MG/3 ML VIAL.NEB. NEB STA (20:19)
[2017-04-30] MEDS ORDERED: TERBUTALINE SULFATE 1 MG/1 ML VIAL SQ STA (20:20)
[2017-04-30] MEDS ORDERED: FUROSEMIDE 40 MG/4 ML INJECTABLE VIAL IVPUSH ONE (20:21)
[2017-04-30] MEDS ORDERED: FUROSEMIDE INJECTION 100 MG in DEXTROSE 5%-WATER - 90 ML IVPB SCH (20:30)
[2017-04-30] MEDS ORDERED: FUROSEMIDE 100 MG/10 ML INJECTABLE VIAL ONE (20:33)
[2017-04-30 20:48] LABS: ARTERIAL BLD GAS O2 SATURATION 99.8 % (90-98.9); ARTERIAL BLOOD GAS BASE EXCESS 9.1 meq/l (-2-2); ARTERIAL BLOOD GAS HCO3 38.4 meq/L (22-26)
[2017-04-30 20:49] LABS: ALLENS TEST POSITIVE; ART PUNCT SITE LEFT RADIAL; LPM/O2% 4LPM; PT. ON O2? YES
[2017-04-30 20:50] LABS: ARTERIAL BLOOD GAS pH 7.23 (7.35-7.45); TYPE OF O2 NASAL
[2017-04-30] MEDS: DOCUSATE SODIUM 100 MG CAPSULE (FP) PO SCH (21:53)
[2017-04-30] MEDS: CHLORHEXIDINE GLUCONATE 4% CLEANSER FOR DECOLONIZATION TP SCH (21:54)
--- NOTE | 2017-04-30 23:26 | PN ---
Progress Note (short form) - Note Progress Note: was called to the bedside because patient complaining of SOB. No tachycardia, patient was saturating 100% on 4L NC. Lung exam: diffuse b/l expiratory wheezes worse on the left than the right. ABG: pH: 7.23 pCO2: 94.9 pO2: 251 hCO3: 38.4 O2 sat: 99.8 ordered stat CXR showed no acute changes. Stacked nebs solumetrol Bipap for 1 hr, then recheck ABG Patient shows improvement after treatment.
[2017-05-01] MEDS ORDERED: morphine CARPU-JECT 2 MG/1 ML DISP.SYRIN ONE (01:02)
[2017-05-01] MEDS ORDERED: PT OWN MED DRAWER 7, Y5N ONE ×2 (01:18→18:53)
[2017-05-01] MEDS: MEROPENEM 1 GM in DEXTROSE 5%-WATER - 100 ML IVPB SCH ×3 (01:20→18:59)
[2017-05-01] MEDS ORDERED: morphine CARPU-JECT 2 MG/1 ML DISP.SYRIN IVPUSH ONE (02:25)
[2017-05-01] MEDS ORDERED: morphine CARPU-JECT 2 MG/1 ML DISP.SYRIN IVPB PRN (03:14)
[2017-05-01] MEDS: CLINDAMYCIN 600MG PREMIX IVPB 50 ML IVPB SCH ×4 (03:51→22:55)
[2017-05-01] MEDS: ALBUTEROL SO4 2.5/IPRATROPIUM 0.5 INH SOL 3 ML VIAL.NEB. NEB SCH ×3 (05:27→17:15)
[2017-05-01 06:06] LABS: BASOPHIL 0.2 % (0-2.0); EOSINOPHIL 0.1 % (0-4.5); MCH 20.4 pg (25.7-33.7); MCHC 29.5 g/dl (32.0-36.0); MEAN CELL VOLUME 69.1 fl (80-96); MEAN PLT VOLUME 8.8 fl (7.5-11.1); NEUTROPHILS 89.3 % (42.8-82.8); PLATELET COUNT 310 K/MM3 (134-434); WHITE BLOOD COUNT 10.8 K/mm3 (4.0-10.0)
[2017-05-01] MEDS: PHENYLEPHRINE HCL 20,000 MCG in SODIUM CHLORIDE 248 ML IVPB SCH (06:17)
[2017-05-01] MEDS: MINERAL OIL/PET HY-PHL TOPICAL OINTMENT 454 GM JAR TP SCH ×3 (06:17→22:55)
[2017-05-01 06:34] LABS: INR 1.26 (0.82-1.09); PROTHROMBIN TIME (PATIENT) 13.9 SEC (9.98-11.88)
[2017-05-01 06:44] LABS: ANION GAP 3 (8-16); CALCIUM 8.6 mg/dL (8.5-10.1); CO2 40 mmol/L (21-32); CREATININE 0.6 mg/dL (0.55-1.02); GLUCOSE,RANDOM 149 mg/dL (74-106); MAGNESIUM 1.8 mg/dL (1.8-2.4); PHOSPHOROUS 3.5 mg/dL (2.5-4.9)
[2017-05-01] MEDS ORDERED: DEXTROSE 50%-WATER - 25 GM/50 ML VIAL IVPUSH ONE (07:38)
[2017-05-01] MEDS ORDERED: INSULIN REGULAR HUMAN 100 UNITS/ML *VIAL IVPUSH ONE (07:38)
[2017-05-01] MEDS ORDERED: SODIUM POLYSTYRENE SULFONATE 15 GM/60 ML BOTTLE PO ONE ×2 (07:40→11:46)
[2017-05-01] MEDS: ALBUTEROL SO4 0.083% IH SOL 2.5 MG/3 ML VIAL.NEB. NEB SCH ×3 (07:50→08:30)
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
[2017-05-01] MEDS ORDERED: DEXTROSE 50%-WATER 50 ML DISP.SYRIN ONE (08:32)
[2017-05-01 08:38] LABS: ALLENS TEST POSITIVE; ART PUNCT SITE RIGHT RADIAL; ARTERIAL BLD GAS O2 SATURATION 99.7 % (90-98.9); ARTERIAL BLOOD GAS BASE EXCESS 13.7 meq/l (-2-2); ARTERIAL BLOOD GAS pH 7.41 (7.35-7.45); LPM/O2% 3L; PT. ON O2? YES; TYPE OF O2 NASAL O2
--- NOTE | 2017-05-01 10:07 | EKG ---
Test Reason : Blood Pressure : / mmHG Vent. Rate : 116 BPM Atrial Rate : 116 BPM P-R Int : 146 ms QRS Dur : 078 ms QT Int : 288 ms P-R-T Axes : 043 011 057 degrees QTc Int : 400 ms SINUS TACHYCARDIA OTHERWISE NORMAL ECG WHEN COMPARED WITH ECG OF 27-APR-2017 08:55, NO SIGNIFICANT CHANGE WAS FOUND Confirmed by CHRISTIANO HARTLEY MD ([id number]) on 05/01/2017 10:06:35 AM Referred By: SERINA VALVERDE Confirmed By:CHRISTIANO HARTLEY MD
[2017-05-01] MEDS: FERROUS SO4 325 MG TABLET (FP) PO SCH ×3 (10:39→18:59)
[2017-05-01] MEDS: BETAMETHASONE DIPR 0.05% OINTMENT 15 GM TUBE TP SCH (10:39)
[2017-05-01] MEDS: ASCORBIC ACID 500 MG TABLET (FP) PO SCH (10:39)
[2017-05-01] MEDS: DOCUSATE SODIUM 100 MG CAPSULE (FP) PO SCH ×2 (10:40→22:56)
[2017-05-01] MEDS: HEPARIN - 25,000 UNIT in SODIUM CHLORIDE 495 ML IV SCH (10:40)
[2017-05-01] MEDS ORDERED: TRIAMCINOLONE ACET 0.1% CREAM 15 GM TUBE TP SCH (12:00)
--- NOTE | 2017-05-01 12:24 | PN ---
Teaching Attending Note Name of Resident: Markel Pulido ATTENDING PHYSICIAN STATEMENT I saw and evaluated the patient. I reviewed the resident's note and discussed the case with the resident. I agree with the resident's findings and plan as documented. SUBJECTIVE: Patient seen and examined in the ICU. Awake and alert. Skin lesions appear better overall. Remains off pressors. Noted that overnight she required Lasix drip and NIPPV. Denies CP or SOB. Intake & Output 04/28/17 04/29/17 04/30/17 05/01/17 23:59 23:59 23:59 23:59 Intake Total 3585.8 4169 1775 986 Output Total 3600 1200 7600 1400 Balance -14.2 2969 -5825 -414 Weight 432 lb 15.806 oz Last Vital Signs Temp Pulse Resp BP Pulse Ox 98.2 F 118 H 22 120/71 95 05/01/17 06:00 05/01/17 10:55 05/01/17 06:00 05/01/17 06:00 05/01/17 10:56 Active Medications Acetaminophen (Tylenol Oral Solution -) 650 mg PO Q6H PRN PRN Reason: FEVER OR PAIN Last Admin: 04/27/17 23:22 Dose: 650 mg Albuterol/Ipratropium (Duoneb -) 1 amp NEB QIDR [facility] Last Admin: 05/01/17 10:15 Dose: 1 amp Ascorbic Acid (Vitamin C -) 500 mg PO DAILY [facility] Last Admin: 05/01/17 10:39 Dose: 500 mg Betamethasone Dipropionate (Diprosone 0.05% Ointment -) 1 applic TP BID [facility] Last Admin: 05/01/17 10:39 Dose: 1 applic Chlorhexidine Gluconate (Hibiclens For Decolonization -) 1 applic TP HS [facility] Last Admin: 04/30/17 21:54 Dose: Not Given Docusate Sodium (Colace -) 100 mg PO BID [facility] Last Admin: 05/01/17 10:40 Dose: Not Given Emollient Ointment (Aquaphor -) 1 applic TP TID [facility] Last Admin: 05/01/17 06:17 Dose: 1 applic Ferrous Sulfate (Feosol -) 325 mg PO TIDCM [facility] Last Admin: 05/01/17 10:39 Dose: 325 mg Furosemide (Lasix -) 40 mg PO DAILY [facility] Guaifenesin (Diabetic Tussin Dm -) 10 ml PO Q4H PRN PRN Reason: COUGH Heparin Sodium (Porcine) (Heparin -) 1,000 unit IVPUSH PRN PRN PRN Reason: Heparin Heparin Sodium (Porcine) (Heparin -) 5,000 unit IVPUSH PRN PRN PRN Reason: Heparin Last Admin: 04/26/17 08:30 Dose: 5,000 unit Meropenem 1 gm/ Dextrose 100 mls @ 200 mls/hr IVPB Q8H-IV [facility] PRN Reason: Protocol Last Admin: 05/01/17 10:43 Dose: 200 mls/hr Phenylephrine HCl 20,000 mcg/ (Sodium Chloride) 250 mls @ 75 mls/hr IVPB ASDIR [facility]; 100 MCG/MIN PRN Reason: Protocol Last Admin: 05/01/17 06:17 Dose: Not Given Clindamycin Phosphate (Cleocin 600 Mg Premix Ivpb -) 50 mls @ 100 mls/hr IVPB Q6H-IV [facility] Last Admin: 05/01/17 10:39 Dose: 100 mls/hr Heparin Sodium (Porcine) 25, (000 unit/ Sodium Chloride) 500 mls @ 70 mls/hr IV TITR [facility]; 3,500 UNIT/HR PRN Reason: Protocol Last Admin: 05/01/17 10:40 Dose: 60 mls/hr Morphine Sulfate (Morphine Injection -) 2 mg IVPB Q4H PRN PRN Reason: PAIN Ondansetron HCl (Zofran Injection) 4 mg IVPUSH Q6H PRN PRN Reason: NAUSEA AND/OR VOMITING Triamcinolone Acetonide (Aristocort 0.1% Cream -) 1 applic TP BID [facility] Warfarin Sodium (Coumadin -) 7.5 mg PO DAILY@1800 [facility] Last Admin: 04/30/17 17:04 Dose: 7.5 mg Constitutional: Yes: Awake and alert, NAD Eyes: Yes: WNL, Conjunctiva Clear, EOM Intact, PERRL (no rash involvement of face/eyes) HENT: Yes: Atraumatic, Normocephalic Neck: Yes: Supple, Trachea Midline. No: Lymphadenopathy, Tenderness Cardiovascular: Yes: Regular Rate and Rhythm, S1, S2, Other (distant) Respiratory: Yes: CTA Bilaterally, Diminished, On Nasal O2. No: Accessory Muscle Use, Wheezes Gastrointestinal: Yes: Soft, Abdomen, Obese ...Rectal Exam: Yes: WNL Renal/: Yes: Kaur Present. No: Vaginal Bleeding, Vaginal Discharge Breast(s): Yes: WNL Musculoskeletal: Yes: WNL Extremities: Yes: Erythema Edema: Yes Edema: LUE: 1+, RUE: 1+, LLE: 1+, RLE: 1+ Peripheral Pulses WNL: Yes Integumentary: Yes: Rash improving Neurological: Yes: Alert, Oriented ...Motor Strength: WNL Psychiatric: Yes: Alert, Oriented Labs: Laboratory Results - last 24 hr 04/30/17 05/01/17 05/01/17 20:45 00:01 05:11 WBC RBC Hgb Hct MCV MCH MCHC RDW Plt Count MPV Neutrophils % Lymphocytes % Monocytes % Eosinophils % Basophils % INR PTT (Actin FS) Puncture Site Left radial ABG pH 7.23 L* ABG pCO2 at Pt Temp 94.9 H* D ABG pO2 at Pt Temp 251.0 H* ABG HCO3 38.4 H ABG O2 Sat (Measured) 99.8 H* ABG O2 Content 13.0 L ABG Base Excess 9.1 H Gama Test Positive O2 Delivery Device Nasal Oxygen Flow Rate 4lpm PEEP 0.0 Sodium Potassium Chloride Carbon Dioxide Anion Gap BUN Creatinine POC Glucometer 189.51237 253.21253 Random Glucose Calcium Phosphorus Magnesium 05/01/17 05/01/17 05/01/17 05:15 05:15 05:15 WBC 10.8 H RBC 4.46 Hgb 9.1 L Hct 30.9 L MCV 69.1 L MCH 20.4 L MCHC 29.5 L RDW 23.0 H Plt Count 310 MPV 8.8 Neutrophils % 89.3 H D Lymphocytes % 9.3 D Monocytes % 1.1 L Eosinophils % 0.1 D Basophils % 0.2 INR 1.26 H PTT (Actin FS) 92.5 H D Puncture Site ABG pH ABG pCO2 at Pt Temp ABG pO2 at Pt Temp ABG HCO3 ABG O2 Sat (Measured) ABG O2 Content ABG Base Excess Gama Test O2 Delivery Device Oxygen Flow Rate PEEP Sodium Potassium Chloride Carbon Dioxide Anion Gap BUN Creatinine POC Glucometer Random Glucose Calcium Phosphorus Magnesium 05/01/17 05/01/17 05:15 08:14 WBC RBC Hgb Hct MCV MCH MCHC RDW Plt Count MPV Neutrophils % Lymphocytes % Monocytes % Eosinophils % Basophils % INR PTT (Actin FS) Puncture Site Right radial ABG pH 7.41 D ABG pCO2 at Pt Temp 64.2 H* D ABG pO2 at Pt Temp 162.0 H* ABG HCO3 40.0 H ABG O2 Sat (Measured) 99.7 H* ABG O2 Content 12.4 L ABG Base Excess 13.7 H Gama Test Positive O2 Delivery Device Nasal o2 Oxygen Flow Rate 3l PEEP Sodium 135 L Potassium 5.6 H Chloride 92 L Carbon Dioxide 40 H Anion Gap 3 L BUN 9 D Creatinine 0.6 POC Glucometer Random Glucose 149 H D Calcium 8.6 Phosphorus 3.5 Magnesium 1.8 Problem List - Problems (1) Cellulitis Code(s): L03.90 - CELLULITIS, UNSPECIFIED Qualifiers: Site of cellulitis: unspecified site Qualified Code(s): L03.90 - Cellulitis, unspecified (2) Desquamated skin Code(s): R23.4 - CHANGES IN SKIN TEXTURE (3) Sepsis Code(s): A41.9 - SEPSIS, UNSPECIFIED ORGANISM Qualifiers: Sepsis type: sepsis due to unspecified organism Qualified Code(s): A41.9 - Sepsis, unspecified organism (4) Drug-induced skin rash Code(s): L27.0 - GEN SKIN ERUPTION DUE TO DRUGS AND MEDS TAKEN INTERNALLY Assessment/Plan Cautious use of diuretics (-3500cc overnight) AC -> as there was a high concern for VTE and due to her body habitus -> diagnostic imaging cannot be performed O2 as needed NIPPV overnight and PRN BD TX PRN Dr Caldwell Total Critical Care Time: 35 Critical Care Statement: The care of this patient involved high complexity decision making to prevent further life threatening deterioration of the patient 's condition and/or to evalute & treat vital organ system(s) failure or risk of failure.
--- NOTE | 2017-05-01 13:34 | PN ---
Progress Note (short form) - Note Progress Note: Events noted SOB overnight Currently in bed in NAD Vital Signs Period Temp Pulse Resp BP Sys/Jones Pulse Ox Last 24 Hr 98.0 F-99.1 F 97-118 20-30 95-149/57-76 94-99 PE: AOx3 Neck: Supple Lungs: Scattered rhonchi CVS: S1S2 Abd: Benign, Ext: Leg edema with stasis changes Skin: patchy erythematous rash with desquamation CMP Sodium 135 mmol/L (136-145) L 05/01/17 05:15 Potassium 5.6 mmol/L (3.5-5.1) H 05/01/17 05:15 Chloride 92 mmol/L (98-107) L 05/01/17 05:15 Carbon Dioxide 40 mmol/L (21-32) H 05/01/17 05:15 Anion Gap 3 (8-16) L 05/01/17 05:15 BUN 9 mg/dL (7-18) D 05/01/17 05:15 Creatinine 0.6 mg/dL (0.55-1.02) 05/01/17 05:15 Creat Clearance w eGFR > 60 (>60) 04/29/17 05:30 POC Glucometer 253.06768 UNITS (()) 05/01/17 05:11 Random Glucose 149 mg/dL (74-106) H D 05/01/17 05:15 Hemoglobin A1c % 7.6 % (4.8-6.0) H 04/24/17 05:15 Lactic Acid 1.0 mmol/L (0.4-2.0) 04/24/17 05:15 Calcium 8.6 mg/dL (8.5-10.1) 05/01/17 05:15 Phosphorus 3.5 mg/dL (2.5-4.9) 05/01/17 05:15 Magnesium 1.8 mg/dL (1.8-2.4) 05/01/17 05:15 Iron 15 ug/dL (27-159) L 04/27/17 05:15 TIBC 170 ug/dL (250-450) L 04/27/17 05:15 Iron Saturation 9 % (15-55) L 04/27/17 05:15 Total Bilirubin 0.2 mg/dL (0.2-1.0) 04/29/17 05:30 AST 16 U/L (15-37) 04/29/17 05:30 ALT 15 U/L (12-78) 04/29/17 05:30 Alkaline Phosphatase 63 U/L (45-117) 04/29/17 05:30 Creatine Kinase 24 IU/L (26-192) L 04/30/17 05:15 Creatine Kinase Index 0.8 % (0.0-5.0) 04/23/17 11:40 CK-MB (CK-2) 1.225 ng/ml (0.5-3.6) 04/23/17 11:40 Troponin I < 0.02 ng/ml (0.00-0.05) 04/26/17 05:20 B-Natriuretic Peptide Cancelled 04/26/17 06:00 Total Protein 6.5 g/dl (6.4-8.2) 04/29/17 05:30 Albumin 1.7 g/dl (3.4-5.0) L 04/29/17 05:30 TSH 1.90 uIU/ml (0.358-3.74) 04/30/17 12:00 Current Medications Generic Name Dose Route Start Last Admin Trade Name Freq PRN Reason Stop Dose Admin Acetaminophen 650 mg 04/23/17 15:31 04/27/17 23:22 Tylenol Oral Solution - PO 650 mg Q6H PRN Administration FEVER OR PAIN Albuterol/Ipratropium 1 amp 04/29/17 12:00 05/01/17 10:15 Duoneb - NEB 1 amp QIDR [facility] Administration Ascorbic Acid 500 mg 04/30/17 12:24 05/01/17 10:39 Vitamin C - PO 500 mg DAILY [facility] Administration Chlorhexidine Gluconate 1 applic 04/23/17 22:00 04/30/17 21:54 Hibiclens For Decolonization - TP Not Given HS [facility] Docusate Sodium 100 mg 04/30/17 22:00 05/01/17 10:40 Colace - PO Not Given BID [facility] Emollient Ointment 1 applic 04/25/17 14:00 05/01/17 06:17 Aquaphor - TP 1 applic TID [facility] Administration Ferrous Sulfate 325 mg 04/30/17 12:00 05/01/17 10:39 Feosol - PO 325 mg TIDCM [facility] Administration Furosemide 40 mg 05/02/17 10:00 Lasix - PO DAILY [facility] Guaifenesin 10 ml 04/29/17 11:50 Diabetic Tussin Dm - PO Q4H PRN COUGH Heparin Sodium (Porcine) 1,000 unit 04/26/17 08:55 Heparin - IVPUSH PRN PRN Heparin Heparin Sodium (Porcine) 5,000 unit 04/26/17 08:55 04/26/17 08:30 Heparin - IVPUSH 5,000 unit PRN PRN Administration Heparin Meropenem 1 gm/ Dextrose 100 mls @ 200 mls/hr 04/23/17 18:00 05/01/17 10:43 IVPB 200 mls/hr Q8H-IV [facility] Administration Protocol Phenylephrine HCl 20,000 mcg/ 250 mls @ 75 mls/hr 04/25/17 04:15 05/01/17 06:17 Sodium Chloride IVPB Not Given ASDIR [facility] Protocol 100 MCG/MIN Clindamycin Phosphate 50 mls @ 100 mls/hr 04/25/17 10:15 05/01/17 10:39 Cleocin 600 Mg Premix Ivpb - IVPB 100 mls/hr Q6H-IV [facility] Administration Heparin Sodium (Porcine) 25, 500 mls @ 70 mls/hr 04/26/17 09:00 05/01/17 10:40 000 unit/ Sodium Chloride IV 60 mls/hr TITR [facility] Administration Protocol 3,500 UNIT/HR Morphine Sulfate 2 mg 05/01/17 03:14 Morphine Injection - IVPB Q4H PRN PAIN Ondansetron HCl 4 mg 04/27/17 07:38 Zofran Injection IVPUSH Q6H PRN NAUSEA AND/OR VOMITING Triamcinolone Acetonide 1 applic 05/01/17 12:00 Aristocort 0.1% Cream - TP BID [facility] Warfarin Sodium 7.5 mg 04/30/17 18:00 04/30/17 17:04 Coumadin - PO 7.5 mg DAILY@1800 [facility] Administration AP: Desquamating rash Sepsis Left Adrenal Incidentaloma Morbid obesity R/O PE W/U for adrenal incidentaloma done during admission in showed normal plasma catecholamines which rules out pheochromocytoma 1mg Dexa suppression test showed Cortisol of 3.1 . Further testing couldnot be done as pt was put on steroids to treat Asthma exacerbation. Will repeat dexa suppression test tomorrow morning. Will need to repeat CT abdomen to rule out any change in size of the adrenal mass. Pt however has not been able to get CT scans as she couldnot fit into the CT scanner.
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
[2017-05-01] MEDS: ACETAMINOPHEN 650 MG/20.3 ML ORAL SOLUTION (CUPS) PO PRN (16:03)
[2017-05-01] MEDS: TRIAMCINOLONE ACET 0.1% OINT 80 GM TUBE TP SCH ×2 (16:04→22:55)
[2017-05-01] MEDS ORDERED: HEMOQUE TEST 1 EACH EACH ONE (17:30)
[2017-05-01] MEDS ORDERED: LIDOCAINE HCL 2% JELLY (30 ML/TUBE) TP PRN ×2 (17:37→17:39)
[2017-05-01] MEDS: WARFARIN NA 7.5 MG TABLET (FP) PO SCH (19:00)
--- NOTE | 2017-05-01 19:35 | PN ---
Progress Note, Physician History of Present Illness: much better skin rash much better had hypoxic episodes now much better - Current Medication List Current Medications: Active Medications Acetaminophen (Tylenol Oral Solution -) 650 mg PO Q6H PRN PRN Reason: FEVER OR PAIN Last Admin: 05/01/17 16:03 Dose: 650 mg Albuterol/Ipratropium (Duoneb -) 1 amp NEB QIDR [facility] Last Admin: 05/01/17 17:15 Dose: 1 amp Ascorbic Acid (Vitamin C -) 500 mg PO DAILY [facility] Last Admin: 05/01/17 10:39 Dose: 500 mg Chlorhexidine Gluconate (Hibiclens For Decolonization -) 1 applic TP HS [facility] Last Admin: 04/30/17 21:54 Dose: Not Given Dexamethasone (Decadron -) 1 mg PO ONCE ONE Stop: 05/01/17 23:01 Docusate Sodium (Colace -) 100 mg PO BID [facility] Last Admin: 05/01/17 10:40 Dose: Not Given Emollient Ointment (Aquaphor -) 1 applic TP TID [facility] Last Admin: 05/01/17 16:04 Dose: 1 applic Ferrous Sulfate (Feosol -) 325 mg PO TIDCM [facility] Last Admin: 05/01/17 18:59 Dose: 325 mg Furosemide (Lasix -) 40 mg PO DAILY [facility] Guaifenesin (Diabetic Tussin Dm -) 10 ml PO Q4H PRN PRN Reason: COUGH Heparin Sodium (Porcine) (Heparin -) 1,000 unit IVPUSH PRN PRN PRN Reason: Heparin Heparin Sodium (Porcine) (Heparin -) 5,000 unit IVPUSH PRN PRN PRN Reason: Heparin Last Admin: 04/26/17 08:30 Dose: 5,000 unit Meropenem 1 gm/ Dextrose 100 mls @ 200 mls/hr IVPB Q8H-IV WAYNE PRN Reason: Protocol Last Admin: 05/01/17 18:59 Dose: 200 mls/hr Phenylephrine HCl 20,000 mcg/ (Sodium Chloride) 250 mls @ 75 mls/hr IVPB ASDIR WAYNE; 100 MCG/MIN PRN Reason: Protocol Last Admin: 05/01/17 06:17 Dose: Not Given Clindamycin Phosphate (Cleocin 600 Mg Premix Ivpb -) 50 mls @ 100 mls/hr IVPB Q6H-IV [facility] Last Admin: 05/01/17 16:03 Dose: 100 mls/hr Heparin Sodium (Porcine) 25, (000 unit/ Sodium Chloride) 500 mls @ 70 mls/hr IV TITR WAYNE; 3,500 UNIT/HR PRN Reason: Protocol Last Admin: 05/01/17 10:40 Dose: 60 mls/hr Lidocaine HCl (Xylocaine 2% Jelly) 10 applic TP ONCE PRN PRN Reason: PAIN Morphine Sulfate (Morphine Injection -) 2 mg IVPB Q4H PRN PRN Reason: PAIN Ondansetron HCl (Zofran Injection) 4 mg IVPUSH Q6H PRN PRN Reason: NAUSEA AND/OR VOMITING Triamcinolone Acetonide (Aristocort 0.1% Ointment -) 1 applic TP BID [facility] Last Admin: 05/01/17 16:04 Dose: 1 applic Warfarin Sodium (Coumadin -) 7.5 mg PO DAILY@1800 [facility] Last Admin: 05/01/17 19:00 Dose: 7.5 mg - Objective Vital Signs: Vital Signs Temperature 98.9 F 05/01/17 14:00 Pulse Rate 103 H 05/01/17 16:00 Respiratory Rate 24 05/01/17 16:00 Blood Pressure 122/45 05/01/17 16:00 O2 Sat by Pulse Oximetry (%) 96 05/01/17 14:19 Constitutional: Yes: No Distress, Calm, Obese HENT: Yes: Atraumatic Cardiovascular: Yes: Regular Rate and Rhythm Respiratory: Yes: Regular, On Nasal O2 Gastrointestinal: Yes: Normal Bowel Sounds, Soft Musculoskeletal: Yes: Other Extremities: Yes: Other Neurological: Yes: Alert, Oriented Psychiatric: Yes: Alert, Oriented Labs: CBC, BMP 05/01/17 05:15 05/01/17 05:15 INR, PTT INR 1.26 (0.82-1.09) H 05/01/17 05:15 Assessment/Plan - Problems (1) Cellulitis Code(s): L03.90 - CELLULITIS, UNSPECIFIED Qualifiers: Site of cellulitis: unspecified site Qualified Code(s): L03.90 - Cellulitis, unspecified (2) Desquamated skin Code(s): R23.4 - CHANGES IN SKIN TEXTURE (3) Sepsis Code(s): A41.9 - SEPSIS, UNSPECIFIED ORGANISM Qualifiers: Sepsis type: sepsis due to unspecified organism Qualified Code(s): A41.9 - Sepsis, unspecified organism (4) generalized rash 5 abd wall cellulitis morbid obesity sepsis septic shock gm positive bateremia plan conitnue abx continue hydration continue skin care rest continue current mgmt continues to improve patient improving by thursday will deescalate abx cc time 40 min
[2017-05-01] MEDS: CHLORHEXIDINE GLUCONATE 4% CLEANSER FOR DECOLONIZATION TP SCH (22:56)
[2017-05-01] MEDS ORDERED: DEXAMETHASONE 0.5 MG TABLET PO ONE (23:00)
[2017-05-02] MEDS: MEROPENEM 1 GM in DEXTROSE 5%-WATER - 100 ML IVPB SCH ×3 (02:00→17:34)
[2017-05-02] MEDS: CLINDAMYCIN 600MG PREMIX IVPB 50 ML IVPB SCH ×4 (03:00→21:44)
[2017-05-02] MEDS: ALBUTEROL SO4 2.5/IPRATROPIUM 0.5 INH SOL 3 ML VIAL.NEB. NEB SCH ×4 (06:00→18:55)
[2017-05-02 06:20] LABS: MCH 20.6 pg (25.7-33.7); MCHC 29.9 g/dl (32.0-36.0); MEAN CELL VOLUME 69.1 fl (80-96); MEAN PLT VOLUME 8.5 fl (7.5-11.1); PLATELET COUNT 322 K/MM3 (134-434); WHITE BLOOD COUNT 10.1 K/mm3 (4.0-10.0)
[2017-05-02 06:31] LABS: INR 1.21 (0.82-1.09); PROTHROMBIN TIME (PATIENT) 13.4 SEC (9.98-11.88)
[2017-05-02 06:46] LABS: ANION GAP 3 (8-16); BILIRUBIN,TOTAL 0.2 mg/dL (0.2-1.0); CALCIUM 8.4 mg/dL (8.5-10.1); CO2 44 mmol/L (21-32); CREATININE 0.5 mg/dL (0.55-1.02); GLUCOSE,RANDOM 102 mg/dL (74-106); PHOSPHOROUS 4.2 mg/dL (2.5-4.9); SGOT/AST 14 U/L (15-37); SGPT/ALT 14 U/L (12-78); TOT PROT 6.7 g/dl (6.4-8.2)
[2017-05-02 06:47] LABS: ALK PHOS 58 U/L (45-117)
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
[2017-05-02] MEDS ORDERED: PT OWN MED DRAWER 7, Y5N ONE (07:20)
[2017-05-02] MEDS ORDERED: HEPARIN INFUSION - 500 ML IVPB ONE (07:22)
[2017-05-02] MEDS: PHENYLEPHRINE HCL 20,000 MCG in SODIUM CHLORIDE 248 ML IVPB SCH (07:32)
[2017-05-02] MEDS: MINERAL OIL/PET HY-PHL TOPICAL OINTMENT 454 GM JAR TP SCH ×3 (07:33→21:44)
--- NOTE | 2017-05-02 09:14 | PN ---
Progress Note (short form) - Note Progress Note: Patient seen and examined in the ICU. 24 HOUR EVENTS: -cont to improve -plan to de-escalate abx on thursday -slowed diuresis, shows rising Hco3 and Na c/f contraction -Hco3 may also be rising due to worsening chronic hypercapnea, cont noctural bipap Vital Signs Temp 97.2 F L 05/02/17 02:00 Pulse 112 H 05/02/17 06:00 Resp 24 05/02/17 06:00 BP 109/47 05/02/17 06:00 Pulse Ox 96 05/01/17 21:00 Intake & Output 05/01/17 05/01/17 05/02/17 11:59 23:59 11:59 Intake Total 986 2170 1020 Output Total 1400 2000 1200 Balance -414 170 -180 Intake: IV 786 720 720 Heparin - 25,000 Unit In 756 720 720 Normal Saline - 495 ml @ 3,500 UNIT/HR 70 mls/hr IV TITR WAYNE Rx#: [id number] Lasix Injection - 100 mg 30 In D5w - 90 ml @ 5 MG/HR 5 mls/hr IVPB TITR WAYNE Rx #:[id number] IVPB 200 300 300 Oral 1150 Output: Urine 1400 2000 1200 Kaur 1400 2000 1200 Other: Voiding Method Indwelling Catheter Indwelling Catheter Bowel Movement Yes Yes # Bowel Movements 2 CBC, BMP 05/02/17 05:30 05/02/17 05:30 Microbiology 04/27/17 09:25 Blood - Peripheral Venous Blood Culture - Preliminary NO GROWTH OBTAINED AFTER 96 HOURS, INCUBATION TO CONTINUE FOR 1 DAYS. 04/27/17 09:25 Blood - Peripheral Venous Blood Culture - Preliminary NO GROWTH OBTAINED AFTER 96 HOURS, INCUBATION TO CONTINUE FOR 1 DAYS. 04/25/17 08:10 Blood - Peripheral Venous Blood Culture - Final NO GROWTH AFTER 5 DAYS INCUBATION 04/25/17 08:10 Blood - Peripheral Venous Blood Culture - Final Staphylococcus Epidermidis 04/23/17 12:10 Blood - Peripheral Venous Blood Culture - Final NO GROWTH AFTER 5 DAYS INCUBATION 04/23/17 11:40 Blood - Peripheral Venous Blood Culture - Final NO GROWTH AFTER 5 DAYS INCUBATION 04/25/17 07:30 Urine - Urine Kaur Urine Culture - Final NO GROWTH OBTAINED 04/23/17 11:40 Urine - Urine Clean Catch Urine Culture - Final NO GROWTH OBTAINED Problem List - Problems (1) Cellulitis Code(s): L03.90 - CELLULITIS, UNSPECIFIED Qualifiers: Site of cellulitis: unspecified site Qualified Code(s): L03.90 - Cellulitis, unspecified (2) Desquamated skin Code(s): R23.4 - CHANGES IN SKIN TEXTURE (3) Sepsis Code(s): A41.9 - SEPSIS, UNSPECIFIED ORGANISM Qualifiers: Sepsis type: sepsis due to unspecified organism Qualified Code(s): A41.9 - Sepsis, unspecified organism (4) Drug-induced skin rash Code(s): L27.0 - GEN SKIN ERUPTION DUE TO DRUGS AND MEDS TAKEN INTERNALLY Assessment/Plan Cautious use of diuretics, developing contraction AC -> as there was a high concern for VTE and due to her body habitus -> diagnostic imaging cannot be performed abx course as per ID, likely d/c thursday O2 as needed NIPPV overnight and PRN BD TX PRN counseled on weight loss/use of NIV Ok for med surg Jacob Palacios [facility] [id number] Problem List - Problems (1) Cellulitis Code(s): L03.90 - CELLULITIS, UNSPECIFIED Qualifiers: Site of cellulitis: unspecified site Qualified Code(s): L03.90 - Cellulitis, unspecified (2) Desquamated skin Code(s): R23.4 - CHANGES IN SKIN TEXTURE (3) Sepsis Code(s): A41.9 - SEPSIS, UNSPECIFIED ORGANISM Qualifiers: Sepsis type: sepsis due to unspecified organism Qualified Code(s): A41.9 - Sepsis, unspecified organism (4) Drug-induced skin rash Code(s): L27.0 - GEN SKIN ERUPTION DUE TO DRUGS AND MEDS TAKEN INTERNALLY
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
[2017-05-02 09:47] LABS: PLATELET COMMENT2 NO CLOTTING DETECTED; PLATELET ESTIMATE ADEQUATE (NORMAL)
[2017-05-02 09:48] LABS: ANISOCYTOSIS 3+; HYPOCHROMIA 3+; MICROCYTOSIS 2+; POIKILOCYTOSIS 1+; POLYCHROMASIA 1+
[2017-05-02] MEDS ORDERED: FUROSEMIDE 40 MG TABLET (FP) PO SCH (10:00)
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
[2017-05-02] MEDS ORDERED: WARFARIN NA 10 MG TABLET (FP) PO SCH (10:44)
[2017-05-02] MEDS: FERROUS SO4 325 MG TABLET (FP) PO SCH ×3 (11:22→17:40)
[2017-05-02] MEDS: TRIAMCINOLONE ACET 0.1% OINT 80 GM TUBE TP SCH ×2 (11:31→21:44)
[2017-05-02] MEDS: DOCUSATE SODIUM 100 MG CAPSULE (FP) PO SCH ×2 (11:31→21:44)
[2017-05-02] MEDS: ASCORBIC ACID 500 MG TABLET (FP) PO SCH (11:31)
[2017-05-02] MEDS: HEPARIN - 25,000 UNIT in SODIUM CHLORIDE 495 ML IV SCH (11:32)
--- NOTE | 2017-05-02 15:27 | PN ---
Progress Note, Physician Chief Complaint: Infectious Disease History of Present Illness: Pt is alert, states that she overall feels better Afebrile today Still with occasional chills/feels hot - Current Medication List Current Medications: Active Medications Acetaminophen (Tylenol Oral Solution -) 650 mg PO Q6H PRN PRN Reason: FEVER OR PAIN Last Admin: 05/01/17 16:03 Dose: 650 mg Albuterol/Ipratropium (Duoneb -) 1 amp NEB QIDR [facility] Last Admin: 05/02/17 11:20 Dose: 1 amp Ascorbic Acid (Vitamin C -) 500 mg PO DAILY [facility] Last Admin: 05/02/17 11:31 Dose: 500 mg Chlorhexidine Gluconate (Hibiclens For Decolonization -) 1 applic TP HS [facility] Last Admin: 05/01/17 22:56 Dose: 1 applic Docusate Sodium (Colace -) 100 mg PO BID [facility] Last Admin: 05/02/17 11:31 Dose: Not Given Emollient Ointment (Aquaphor -) 1 applic TP TID [facility] Last Admin: 05/02/17 07:33 Dose: 1 applic Ferrous Sulfate (Feosol -) 325 mg PO TIDCM [facility] Last Admin: 05/02/17 11:31 Dose: 325 mg Furosemide (Lasix -) 40 mg PO DAILY [facility] Last Admin: 05/02/17 11:30 Dose: 40 mg Guaifenesin (Diabetic Tussin Dm -) 10 ml PO Q4H PRN PRN Reason: COUGH Heparin Sodium (Porcine) (Heparin -) 1,000 unit IVPUSH PRN PRN PRN Reason: Heparin Heparin Sodium (Porcine) (Heparin -) 5,000 unit IVPUSH PRN PRN PRN Reason: Heparin Last Admin: 04/26/17 08:30 Dose: 5,000 unit Meropenem 1 gm/ Dextrose 100 mls @ 200 mls/hr IVPB Q8H-IV [facility] PRN Reason: Protocol Last Admin: 05/02/17 11:31 Dose: 200 mls/hr Phenylephrine HCl 20,000 mcg/ (Sodium Chloride) 250 mls @ 75 mls/hr IVPB ASDIR [facility]; 100 MCG/MIN PRN Reason: Protocol Last Admin: 05/02/17 07:32 Dose: Not Given Clindamycin Phosphate (Cleocin 600 Mg Premix Ivpb -) 50 mls @ 100 mls/hr IVPB Q6H-IV [facility] Last Admin: 05/02/17 11:30 Dose: 100 mls/hr Heparin Sodium (Porcine) 25, (000 unit/ Sodium Chloride) 500 mls @ 70 mls/hr IV TITR [facility]; 3,500 UNIT/HR PRN Reason: Protocol Last Admin: 05/02/17 11:32 Dose: 60 mls/hr Lidocaine HCl (Xylocaine 2% Jelly) 10 applic TP ONCE PRN PRN Reason: PAIN Morphine Sulfate (Morphine Injection -) 2 mg IVPB Q4H PRN PRN Reason: PAIN Ondansetron HCl (Zofran Injection) 4 mg IVPUSH Q6H PRN PRN Reason: NAUSEA AND/OR VOMITING Triamcinolone Acetonide (Aristocort 0.1% Ointment -) 1 applic TP BID [facility] Last Admin: 05/02/17 11:31 Dose: 1 applic Warfarin Sodium (Coumadin -) 10 mg PO DAILY@1800 [facility] - Objective Vital Signs: Vital Signs Temperature 98.8 F 05/02/17 14:00 Pulse Rate 99 H 05/02/17 14:00 Respiratory Rate 24 05/02/17 14:00 Blood Pressure 111/53 05/02/17 14:00 O2 Sat by Pulse Oximetry (%) 99 05/02/17 11:20 Constitutional: Yes: No Distress Cardiovascular: Yes: Regular Rate and Rhythm Respiratory: Yes: Regular Gastrointestinal: Yes: Normal Bowel Sounds, Soft, Abdomen, Obese Genitourinary: Yes: Kaur Present (clear yellow urine) Edema: Yes Integumentary: Yes: Erythema (Generalized erythema/desquamation - improving), Rash Neurological: Yes: Alert Labs: CBC, BMP 05/02/17 05:30 05/02/17 05:30 INR, PTT INR 1.21 (0.82-1.09) H 05/02/17 05:30 Problem List - Problems (1) Desquamated skin Code(s): R23.4 - CHANGES IN SKIN TEXTURE (2) Sepsis Code(s): A41.9 - SEPSIS, UNSPECIFIED ORGANISM Qualifiers: Sepsis type: sepsis due to unspecified organism Qualified Code(s): A41.9 - Sepsis, unspecified organism (3) Morbid obesity Code(s): E66.01 - MORBID (SEVERE) OBESITY DUE TO EXCESS CALORIES (4) Cellulitis Code(s): L03.90 - CELLULITIS, UNSPECIFIED Qualifiers: Site of cellulitis: unspecified site Qualified Code(s): L03.90 - Cellulitis, unspecified Assessment/Plan Pt with decreasing generalized erythematous rash/possible soft tissue infection Leukocytosis/Fever - resolving - continue antibiotics for now d/w family at bedside continue monitor
[2017-05-02] MEDS: ACETAMINOPHEN 650 MG/20.3 ML ORAL SOLUTION (CUPS) PO PRN (17:40)
[2017-05-02] MEDS: CHLORHEXIDINE GLUCONATE 4% CLEANSER FOR DECOLONIZATION TP SCH (21:44)
[2017-05-03] MEDS: MEROPENEM 1 GM in DEXTROSE 5%-WATER - 100 ML IVPB SCH ×3 (02:00→22:19)
[2017-05-03] MEDS: CLINDAMYCIN 600MG PREMIX IVPB 50 ML IVPB SCH ×4 (03:00→21:58)
[2017-05-03] MEDS ORDERED: PT OWN MED DRAWER 7, Y5N ONE (04:49)
[2017-05-03] MEDS: ALBUTEROL SO4 2.5/IPRATROPIUM 0.5 INH SOL 3 ML VIAL.NEB. NEB SCH ×2 (05:59)
[2017-05-03 06:33] LABS: BASOPHIL 0.8 % (0-2.0); EOSINOPHIL 11.6 % (0-4.5); MCH 20.4 pg (25.7-33.7); MCHC 29.3 g/dl (32.0-36.0); MEAN CELL VOLUME 69.7 fl (80-96); MEAN PLT VOLUME 8.4 fl (7.5-11.1); PLATELET COUNT 289 K/MM3 (134-434); RDW 23.1 % (11.6-15.6); WHITE BLOOD COUNT 10.5 K/mm3 (4.0-10.0)
[2017-05-03 06:47] LABS: INR 1.43 (0.82-1.09); PROTHROMBIN TIME (PATIENT) 15.9 SEC (9.98-11.88)
[2017-05-03] MEDS: PHENYLEPHRINE HCL 20,000 MCG in SODIUM CHLORIDE 248 ML IVPB SCH (07:06)
[2017-05-03] MEDS: MINERAL OIL/PET HY-PHL TOPICAL OINTMENT 454 GM JAR TP SCH ×3 (07:07→22:20)
--- NOTE | 2017-05-03 07:17 | PN ---
Progress Note (short form) - Note Progress Note: PULMONARY/CRITICAL CARE FOLLOW UP: Progress Note (short form) - Note Progress Note: Patient seen and examined in the ICU. 24 HOUR EVENTS: -Net negative ~3L with Lasix -Has not required NIPPV all weekend, tolerating 3L NC Current Medications Acetaminophen (Tylenol Oral Solution -) 650 mg PO Q6H PRN PRN Reason: FEVER OR PAIN Last Admin: 05/02/17 17:40 Dose: 650 mg Albuterol/Ipratropium (Duoneb -) 1 amp NEB QIDR [facility] Last Admin: 05/03/17 05:59 Dose: 1 amp Ascorbic Acid (Vitamin C -) 500 mg PO DAILY [facility] Last Admin: 05/02/17 11:31 Dose: 500 mg Chlorhexidine Gluconate (Hibiclens For Decolonization -) 1 applic TP HS [facility] Last Admin: 05/02/17 21:44 Dose: 1 applic Docusate Sodium (Colace -) 100 mg PO BID [facility] Last Admin: 05/02/17 21:44 Dose: Not Given Emollient Ointment (Aquaphor -) 1 applic TP TID [facility] Last Admin: 05/02/17 21:44 Dose: 1 applic Ferrous Sulfate (Feosol -) 325 mg PO TIDCM [facility] Last Admin: 05/02/17 17:40 Dose: 325 mg Furosemide (Lasix -) 40 mg PO DAILY [facility] Last Admin: 05/02/17 11:30 Dose: 40 mg Guaifenesin (Diabetic Tussin Dm -) 10 ml PO Q4H PRN PRN Reason: COUGH Heparin Sodium (Porcine) (Heparin -) 1,000 unit IVPUSH PRN PRN PRN Reason: Heparin Heparin Sodium (Porcine) (Heparin -) 5,000 unit IVPUSH PRN PRN PRN Reason: Heparin Last Admin: 04/26/17 08:30 Dose: 5,000 unit Meropenem 1 gm/ Dextrose 100 mls @ 200 mls/hr IVPB Q8H-IV [facility] PRN Reason: Protocol Last Admin: 05/02/17 17:34 Dose: 200 mls/hr Phenylephrine HCl 20,000 mcg/ (Sodium Chloride) 250 mls @ 75 mls/hr IVPB ASDIR [facility]; 100 MCG/MIN PRN Reason: Protocol Last Admin: 05/02/17 07:32 Dose: Not Given Clindamycin Phosphate (Cleocin 600 Mg Premix Ivpb -) 50 mls @ 100 mls/hr IVPB Q6H-IV [facility] Last Admin: 05/02/17 21:44 Dose: 100 mls/hr Heparin Sodium (Porcine) 25, (000 unit/ Sodium Chloride) 500 mls @ 70 mls/hr IV TITR [facility]; 3,500 UNIT/HR PRN Reason: Protocol Last Admin: 05/02/17 11:32 Dose: 60 mls/hr Lidocaine HCl (Xylocaine 2% Jelly) 10 applic TP ONCE PRN PRN Reason: PAIN Morphine Sulfate (Morphine Injection -) 2 mg IVPB Q4H PRN PRN Reason: PAIN Last Admin: 05/02/17 21:45 Dose: 2 mg Ondansetron HCl (Zofran Injection) 4 mg IVPUSH Q6H PRN PRN Reason: NAUSEA AND/OR VOMITING Triamcinolone Acetonide (Aristocort 0.1% Ointment -) 1 applic TP BID [facility] Last Admin: 05/02/17 21:44 Dose: 1 applic Warfarin Sodium (Coumadin -) 10 mg PO DAILY@1800 [facility] Last Admin: 05/02/17 17:40 Dose: 10 mg Vital Signs Temp 98 F 05/03/17 02:00 Pulse 99 H 05/03/17 02:00 Resp 20 05/03/17 02:00 BP 122/55 05/03/17 02:00 Pulse Ox 100 05/02/17 20:16 Intake & Output 05/02/17 05/03/17 05/03/17 18:59 06:59 18:59 Intake Total 500 2590 Output Total 6000 Balance 500 -3410 Intake: IV 1440 Heparin - 25,000 Unit In 1440 Normal Saline - 495 ml @ 3,500 UNIT/HR 70 mls/hr IV TITR [facility] Rx#: [id number] IVPB 550 Oral 500 600 Output: Urine 6000 Kaur 6000 Other: Voiding Method Indwelling Catheter Indwelling Catheter Bowel Movement Yes Yes # Bowel Movements 2 EXAM: neuro: awake, alert, oriented, no distress HEENT: PERRL, L IJ TLC lungs: diminished heart: RRR abd: obese, soft ext: 3+ LE edema, warm skin: warm, dry CBC, [facility] 05/03/17 05:15 Problem List - Problems (1) Cellulitis Code(s): L03.90 - CELLULITIS, UNSPECIFIED Qualifiers: Site of cellulitis: unspecified site Qualified Code(s): L03.90 - Cellulitis, unspecified (2) Desquamated skin Code(s): R23.4 - CHANGES IN SKIN TEXTURE (3) Sepsis Code(s): A41.9 - SEPSIS, UNSPECIFIED ORGANISM Qualifiers: Sepsis type: sepsis due to unspecified organism Qualified Code(s): A41.9 - Sepsis, unspecified organism (4) Drug-induced skin rash Code(s): L27.0 - GEN SKIN ERUPTION DUE TO DRUGS AND MEDS TAKEN INTERNALLY Assessment/Plan -Continue diureses, can give a dose of Diamox to help limit contraction alkylosis -AC -> as there was a high concern for VTE and due to her body habitus -> diagnostic imaging cannot be performed -abx course as per ID, likely d/c thursday -O2 as needed -BD TX PRN -Needs TLC for vascular access - unable to obtain PIVs given body habitus -Sleep study as outpatient Transfer to [facility] Pulm/Critical Care APPEALS ASSISTANT [id number] Problem List - Problems (1) Cellulitis Code(s): L03.90 - CELLULITIS, UNSPECIFIED Qualifiers: Site of cellulitis: unspecified site Qualified Code(s): L03.90 - Cellulitis, unspecified (2) Desquamated skin Code(s): R23.4 - CHANGES IN SKIN TEXTURE (3) Sepsis Code(s): A41.9 - SEPSIS, UNSPECIFIED ORGANISM Qualifiers: Sepsis type: sepsis due to unspecified organism Qualified Code(s): A41.9 - Sepsis, unspecified organism (4) Drug-induced skin rash Code(s): L27.0 - GEN SKIN ERUPTION DUE TO DRUGS AND MEDS TAKEN INTERNALLY
[2017-05-03] MEDS ORDERED: ALBUTEROL SO4 2.5/IPRATROPIUM 0.5 INH SOL 3 ML VIAL.NEB. NEB PRN (08:00)
[2017-05-03 08:13] LABS: ALK PHOS 49 U/L (45-117); ANION GAP 2 (8-16); BILIRUBIN,TOTAL 0.1 mg/dL (0.2-1.0); CALCIUM 8.4 mg/dL (8.5-10.1); CO2 42 mmol/L (21-32); CREATININE 0.6 mg/dL (0.55-1.02); GLUCOSE,RANDOM 95 mg/dL (74-106); SGOT/AST 16 U/L (15-37); SGPT/ALT 16 U/L (12-78); TOT PROT 6.7 g/dl (6.4-8.2)
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
[2017-05-03] MEDS: TRIAMCINOLONE ACET 0.1% OINT 80 GM TUBE TP SCH ×2 (10:53→22:05)
[2017-05-03] MEDS: HEPARIN - 25,000 UNIT in SODIUM CHLORIDE 495 ML IV SCH ×3 (10:53→17:51)
[2017-05-03] MEDS: FERROUS SO4 325 MG TABLET (FP) PO SCH ×3 (10:53→18:23)
[2017-05-03] MEDS: DOCUSATE SODIUM 100 MG CAPSULE (FP) PO SCH ×2 (10:54→22:06)
[2017-05-03] MEDS: ASCORBIC ACID 500 MG TABLET (FP) PO SCH (10:59)
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
[2017-05-03] MEDS: ACETAMINOPHEN 650 MG/20.3 ML ORAL SOLUTION (CUPS) PO PRN (16:03)
[2017-05-03] MEDS ORDERED: LIDOCAINE HCL 2% JELLY (30 ML/TUBE) TP PRN (16:36)
[2017-05-03] MEDS ORDERED: ONDANSETRON 4 MG/2 ML VIAL IVPUSH PRN (16:36)
[2017-05-03] MEDS ORDERED: PHENYLEPHRINE HCL 20,000 MCG in SODIUM CHLORIDE 248 ML IVPB SCH (16:36)
[2017-05-03] MEDS ORDERED: guaiFENesin/D-M SUGAR-FREE/ACLHOL-FREE 118 ML BOTTLE PO PRN (16:36)
[2017-05-03] MEDS ORDERED: ACETAMINOPHEN 650 MG/20.3 ML ORAL SOLUTION (CUPS) PO PRN (16:36)
[2017-05-03] MEDS ORDERED: HEPARIN NA (PORCINE) 5,000 UNITS/ML 1ML VIAL IVPUSH PRN ×4 (16:36)
[2017-05-03] MEDS: ALBUTEROL SO4 2.5/IPRATROPIUM 0.5 INH SOL 3 ML VIAL.NEB. NEB PRN ×2 (17:49→23:02)
[2017-05-03] MEDS: WARFARIN NA 10 MG TABLET (FP) PO SCH (18:24)
[2017-05-03] MEDS ORDERED: CHLORHEXIDINE GLUCONATE 4% CLEANSER FOR DECOLONIZATION TP SCH (22:00)
[2017-05-03] MEDS ORDERED: traMADol HCL 50 MG TABLET PO ONE (22:39)
[2017-05-03] MEDS ORDERED: diphenhydrAMINE HCL 25 MG CAPSULE (FP) PO ONE (22:40)
[2017-05-04] MEDS: CLINDAMYCIN 600MG PREMIX IVPB 50 ML IVPB SCH ×4 (02:54→22:01)
[2017-05-04] MEDS: MEROPENEM 1 GM in DEXTROSE 5%-WATER - 100 ML IVPB SCH ×3 (02:54→17:10)
[2017-05-04] MEDS: MINERAL OIL/PET HY-PHL TOPICAL OINTMENT 454 GM JAR TP SCH ×3 (06:35→22:00)
[2017-05-04] MEDS: ALBUTEROL SO4 2.5/IPRATROPIUM 0.5 INH SOL 3 ML VIAL.NEB. NEB PRN (06:41)
[2017-05-04 07:27] LABS: BASOPHIL 0.7 % (0-2.0); EOSINOPHIL 16.8 % (0-4.5); MCH 20.5 pg (25.7-33.7); MCHC 29.3 g/dl (32.0-36.0); MEAN CELL VOLUME 69.9 fl (80-96); MEAN PLT VOLUME 9.1 fl (7.5-11.1); NEUTROPHILS 57.7 % (42.8-82.8); PLATELET COUNT 265 K/MM3 (134-434); RDW 23.8 % (11.6-15.6); WHITE BLOOD COUNT 9.8 K/mm3 (4.0-10.0)
[2017-05-04 07:31] LABS: CALCIUM 8.5 mg/dL (8.5-10.1); CREATININE 0.5 mg/dL (0.55-1.02); GLUCOSE,RANDOM 85 mg/dL (74-106); MAGNESIUM 1.8 mg/dL (1.8-2.4); PHOSPHOROUS 4.2 mg/dL (2.5-4.9)
[2017-05-04 07:43] LABS: INR 1.83 (0.82-1.09); PROTHROMBIN TIME (PATIENT) 20.4 SEC (9.98-11.88)
[2017-05-04] MEDS: FERROUS SO4 325 MG TABLET (FP) PO SCH ×3 (08:44→17:09)
[2017-05-04 09:01] LABS: ANION GAP -2 (8-16); CO2 48 mmol/L (21-32)
[2017-05-04] MEDS: DOCUSATE SODIUM 100 MG CAPSULE (FP) PO SCH ×2 (09:45→21:59)
[2017-05-04] MEDS: ASCORBIC ACID 500 MG TABLET (FP) PO SCH (09:45)
[2017-05-04] MEDS: TRIAMCINOLONE ACET 0.1% OINT 80 GM TUBE TP SCH ×2 (09:48→22:00)
--- NOTE | 2017-05-04 11:37 | PN ---
Progress Note, Physician History of Present Illness: PULMONARY ALERT,NO DISTRESS,ON NASAL CANNULA - Current Medication List Current Medications: Active Medications Acetaminophen (Tylenol Oral Solution -) 650 mg PO Q6H PRN PRN Reason: FEVER OR PAIN Albuterol/Ipratropium (Duoneb -) 1 amp NEB Q6H PRN Last Admin: 05/04/17 06:41 Dose: 1 amp Ascorbic Acid (Vitamin C -) 500 mg PO DAILY [facility] Last Admin: 05/04/17 09:45 Dose: 500 mg Docusate Sodium (Colace -) 100 mg PO BID [facility] Last Admin: 05/04/17 09:45 Dose: 100 mg Emollient Ointment (Aquaphor -) 1 applic TP TID [facility] Last Admin: 05/04/17 06:35 Dose: 1 applic Ferrous Sulfate (Feosol -) 325 mg PO TIDCM [facility] Last Admin: 05/04/17 08:44 Dose: 325 mg Guaifenesin (Diabetic Tussin Dm -) 10 ml PO Q4H PRN PRN Reason: COUGH Heparin Sodium (Porcine) (Heparin -) 1,000 unit IVPUSH PRN PRN PRN Reason: Heparin Heparin Sodium (Porcine) (Heparin -) 5,000 unit IVPUSH PRN PRN PRN Reason: Heparin Clindamycin Phosphate (Cleocin 600 Mg Premix Ivpb -) 50 mls @ 100 mls/hr IVPB Q6H-IV [facility] Last Admin: 05/04/17 09:47 Dose: 100 mls/hr Heparin Sodium (Porcine) 25, (000 unit/ Sodium Chloride) 500 mls @ 70 mls/hr IV TITR [facility]; 3,500 UNIT/HR PRN Reason: Protocol Last Titration: 05/04/17 11:16 Dose: 2,800 unit/hr Meropenem 1 gm/ Dextrose 100 mls @ 200 mls/hr IVPB Q8H-IV [facility] PRN Reason: Protocol Last Admin: 05/04/17 09:44 Dose: 200 mls/hr Lidocaine HCl (Xylocaine 2% Jelly) 10 applic TP ONCE PRN PRN Reason: PAIN Ondansetron HCl (Zofran Injection) 4 mg IVPUSH Q6H PRN PRN Reason: NAUSEA AND/OR VOMITING Triamcinolone Acetonide (Aristocort 0.1% Ointment -) 1 applic TP BID [facility] Last Admin: 05/04/17 09:48 Dose: 1 applic Warfarin Sodium (Coumadin -) 10 mg PO DAILY@1800 [facility] Last Admin: 05/03/17 18:24 Dose: 10 mg - Objective Vital Signs: Vital Signs Temperature 98.5 F 05/04/17 07:52 Pulse Rate 83 05/04/17 07:52 Respiratory Rate 20 05/04/17 08:07 Blood Pressure 130/70 05/04/17 07:52 O2 Sat by Pulse Oximetry (%) 97 05/04/17 08:07 Constitutional: Yes: Well Nourished, Obese Eyes: Yes: WNL HENT: Yes: WNL Neck: Yes: WNL Cardiovascular: Yes: Regular Rate and Rhythm, S1, S2 Respiratory: Yes: Wheezes (SCATTERED DEON WHEEZES) Gastrointestinal: Yes: Normal Bowel Sounds, Soft Extremities: Yes: WNL Edema: Yes Labs: CBC, BMP 05/04/17 05:35 05/04/17 05:35 INR, PTT INR 1.83 (0.82-1.09) H 05/04/17 05:35 Assessment/Plan Problem List - Problems (1) Cellulitis Code(s): L03.90 - CELLULITIS, UNSPECIFIED Qualifiers: Site of cellulitis: unspecified site Qualified Code(s): L03.90 - Cellulitis, unspecified (2) Desquamated skin Code(s): R23.4 - CHANGES IN SKIN TEXTURE (3) Sepsis Code(s): A41.9 - SEPSIS, UNSPECIFIED ORGANISM Qualifiers: Sepsis type: sepsis due to unspecified organism Qualified Code(s): A41.9 - Sepsis, unspecified organism (4) Drug-induced skin rash Code(s): L27.0 - GEN SKIN ERUPTION DUE TO DRUGS AND MEDS TAKEN INTERNALLY Assessment/Plan -Continue diureses -AC -> as there was a high concern for VTE and due to her body habitus -> diagnostic imaging cannot be performed -abx course as per ID -O2 as needed -BD TX PRN -Needs TLC for vascular access -Sleep study as outpatient - abg DR DOMÍNGUEZ
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
[2017-05-04] MEDS: FUROSEMIDE 20 MG TABLET (FP) PO SCH (12:20)
[2017-05-04 12:36] LABS: ARTERIAL BLD GAS O2 SATURATION 84.9 % (90-98.9); ARTERIAL BLOOD GAS BASE EXCESS 16.7 meq/l (-2-2); ARTERIAL BLOOD GAS HCO3 42.8 meq/L (22-26); ARTERIAL BLOOD GAS pH 7.46 (7.35-7.45)
[2017-05-04 12:37] LABS: ALLENS TEST POSITIVE; ART PUNCT SITE RIGHT RADIAL
[2017-05-04 12:38] LABS: PT. ON O2? NO
[2017-05-04 12:39] LABS: ARTERIAL BLOOD GAS PO2 49.9 mmHg (80-100)
--- NOTE | 2017-05-04 13:37 | PN ---
Progress Note, Physician History of Present Illness: much better skin rash much better no issues abd cellulitits much better - Current Medication List Current Medications: Active Medications Acetaminophen (Tylenol Oral Solution -) 650 mg PO Q6H PRN PRN Reason: FEVER OR PAIN Albuterol/Ipratropium (Duoneb -) 1 amp NEB QIDR [facility] Ascorbic Acid (Vitamin C -) 500 mg PO DAILY [facility] Last Admin: 05/04/17 09:45 Dose: 500 mg Docusate Sodium (Colace -) 100 mg PO BID [facility] Last Admin: 05/04/17 09:45 Dose: 100 mg Emollient Ointment (Aquaphor -) 1 applic TP TID [facility] Last Admin: 05/04/17 06:35 Dose: 1 applic Ferrous Sulfate (Feosol -) 325 mg PO TIDCM [facility] Last Admin: 05/04/17 12:17 Dose: 325 mg Furosemide (Lasix -) 20 mg PO DAILY [facility] Last Admin: 05/04/17 12:20 Dose: 20 mg Guaifenesin (Diabetic Tussin Dm -) 10 ml PO Q4H PRN PRN Reason: COUGH Heparin Sodium (Porcine) (Heparin -) 1,000 unit IVPUSH PRN PRN PRN Reason: Heparin Heparin Sodium (Porcine) (Heparin -) 5,000 unit IVPUSH PRN PRN PRN Reason: Heparin Clindamycin Phosphate (Cleocin 600 Mg Premix Ivpb -) 50 mls @ 100 mls/hr IVPB Q6H-IV [facility] Last Admin: 05/04/17 09:47 Dose: 100 mls/hr Heparin Sodium (Porcine) 25, (000 unit/ Sodium Chloride) 500 mls @ 70 mls/hr IV TITR [facility]; 3,500 UNIT/HR PRN Reason: Protocol Last Titration: 05/04/17 11:16 Dose: 2,800 unit/hr Meropenem 1 gm/ Dextrose 100 mls @ 200 mls/hr IVPB Q8H-IV [facility] PRN Reason: Protocol Last Admin: 05/04/17 09:44 Dose: 200 mls/hr Lidocaine HCl (Xylocaine 2% Jelly) 10 applic TP ONCE PRN PRN Reason: PAIN Ondansetron HCl (Zofran Injection) 4 mg IVPUSH Q6H PRN PRN Reason: NAUSEA AND/OR VOMITING Triamcinolone Acetonide (Aristocort 0.1% Ointment -) 1 applic TP BID [facility] Last Admin: 05/04/17 09:48 Dose: 1 applic Warfarin Sodium (Coumadin -) 10 mg PO DAILY@1800 [facility] Last Admin: 05/03/17 18:24 Dose: 10 mg - Objective Vital Signs: Vital Signs Temperature 98.5 F 05/04/17 07:52 Pulse Rate 83 05/04/17 07:52 Respiratory Rate 20 05/04/17 08:07 Blood Pressure 130/70 05/04/17 07:52 O2 Sat by Pulse Oximetry (%) 97 05/04/17 08:07 Constitutional: Yes: No Distress, Calm, Obese (morbid) Neck: Yes: Supple Cardiovascular: Yes: Regular Rate and Rhythm Respiratory: Yes: Regular, On Nasal O2, Poor Air Entry Gastrointestinal: Yes: Normal Bowel Sounds, Soft, Other (abd wall cellulitits) Musculoskeletal: Yes: Other Extremities: Yes: Other Neurological: Yes: Alert, Oriented Psychiatric: Yes: Alert Labs: CBC, BMP 05/04/17 05:35 05/04/17 05:35 INR, PTT INR 1.83 (0.82-1.09) H 05/04/17 05:35 Assessment/Plan - Problems (1) Cellulitis Code(s): L03.90 - CELLULITIS, UNSPECIFIED Qualifiers: Site of cellulitis: unspecified site Qualified Code(s): L03.90 - Cellulitis, unspecified (2) Desquamated skin Code(s): R23.4 - CHANGES IN SKIN TEXTURE (3) Sepsis Code(s): A41.9 - SEPSIS, UNSPECIFIED ORGANISM Qualifiers: Sepsis type: sepsis due to unspecified organism Qualified Code(s): A41.9 - Sepsis, unspecified organism (4) generalized rash 5 abd wall cellulitis morbid obesity sepsis septic shock gm positive bateremia plan conitnue abx continue hydration continue skin care rest continue current mgmt continues to improve patient improving will change to oral abx on thu/ thursday depending on abd wall abd starting to look better
[2017-05-04] MEDS: ALBUTEROL SO4 2.5/IPRATROPIUM 0.5 INH SOL 3 ML VIAL.NEB. NEB SCH ×3 (14:52→23:04)
[2017-05-04 15:42] LABS: ARTERIAL BLD GAS O2 SATURATION 97.6 % (90-98.9); ARTERIAL BLOOD GAS BASE EXCESS 15.9 meq/l (-2-2); ARTERIAL BLOOD GAS HCO3 43.6 meq/L (22-26); ARTERIAL BLOOD GAS pH 7.36 (7.35-7.45)
[2017-05-04 15:54] LABS: MCH 20.7 pg (25.7-33.7); MCHC 29.4 g/dl (32.0-36.0); MEAN CELL VOLUME 70.3 fl (80-96); MEAN PLT VOLUME 9.1 fl (7.5-11.1); PLATELET COUNT 274 K/MM3 (134-434); RDW 23.5 % (11.6-15.6); WHITE BLOOD COUNT 9.7 K/mm3 (4.0-10.0)
[2017-05-04 15:58] LABS: ALLENS TEST POSITIVE; ART PUNCT SITE RIGHT RADIAL; LPM/O2% 5L; PT. ON O2? YES; TYPE OF O2 N/C
[2017-05-04] MEDS ORDERED: PT OWN MED DRAWER 7, Y5N ONE (17:08)
[2017-05-04] MEDS: WARFARIN NA 10 MG TABLET (FP) PO SCH (17:10)
[2017-05-04] MEDS: HEPARIN - 25,000 UNIT in SODIUM CHLORIDE 495 ML IV SCH (17:12)
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
[2017-05-05] MEDS ORDERED: PT OWN MED DRAWER 7, Y5N ONE ×3 (00:23→08:52)
[2017-05-05] MEDS: MEROPENEM 1 GM in DEXTROSE 5%-WATER - 100 ML IVPB SCH ×3 (01:04→17:52)
[2017-05-05] MEDS: CLINDAMYCIN 600MG PREMIX IVPB 50 ML IVPB SCH ×4 (03:08→21:58)
[2017-05-05] MEDS: HEPARIN - 25,000 UNIT in SODIUM CHLORIDE 495 ML IV SCH (04:03)
[2017-05-05] MEDS: DOCUSATE SODIUM 100 MG CAPSULE (FP) PO SCH ×3 (05:49→21:59)
[2017-05-05] MEDS: MINERAL OIL/PET HY-PHL TOPICAL OINTMENT 454 GM JAR TP SCH ×3 (06:30→21:59)
[2017-05-05] MEDS: ALBUTEROL SO4 2.5/IPRATROPIUM 0.5 INH SOL 3 ML VIAL.NEB. NEB SCH ×3 (06:34→17:10)
[2017-05-05 07:29] LABS: INR 2.3 (0.82-1.09); PROTHROMBIN TIME (PATIENT) 25.7 SEC (9.98-11.88)
[2017-05-05 07:58] LABS: BASOPHIL 0.6 % (0-2.0); EOSINOPHIL 15.4 % (0-4.5); MCH 21.2 pg (25.7-33.7); MEAN CELL VOLUME 70.5 fl (80-96); MEAN PLT VOLUME 8.7 fl (7.5-11.1); NEUTROPHILS 62.1 % (42.8-82.8); PLATELET COUNT 248 K/MM3 (134-434); RDW 23.9 % (11.6-15.6); WHITE BLOOD COUNT 9.2 K/mm3 (4.0-10.0)
[2017-05-05] MEDS: FERROUS SO4 325 MG TABLET (FP) PO SCH ×3 (08:00→17:51)
[2017-05-05 08:04] LABS: ALBUMIN 2.2 g/dl (3.4-5.0); ANION GAP 1 (8-16); CALCIUM 9.1 mg/dL (8.5-10.1); CO2 42 mmol/L (21-32); GLUCOSE,RANDOM 93 mg/dL (74-106)
[2017-05-05 08:08] LABS: ALK PHOS 54 U/L (45-117); BILIRUBIN,TOTAL 0.7 mg/dL (0.2-1.0); CREATININE 0.5 mg/dL (0.55-1.02); SGOT/AST 17 U/L (15-37); SGPT/ALT 21 U/L (12-78); TOT PROT 7.1 g/dl (6.4-8.2)
[2017-05-05] MEDS: FUROSEMIDE 20 MG TABLET (FP) PO SCH (09:01)
[2017-05-05] MEDS: ASCORBIC ACID 500 MG TABLET (FP) PO SCH (09:01)
[2017-05-05] MEDS: TRIAMCINOLONE ACET 0.1% OINT 80 GM TUBE TP SCH ×2 (09:01→21:59)
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
[2017-05-05] MEDS ORDERED: LIDOCAINE HCL 2% JELLY (30 ML/TUBE) TP PRN (11:43)
[2017-05-05] MEDS ORDERED: guaiFENesin/D-M SUGAR-FREE/ACLHOL-FREE 118 ML BOTTLE PO PRN (11:43)
[2017-05-05] MEDS ORDERED: ONDANSETRON 4 MG/2 ML VIAL IVPUSH PRN (11:43)
--- NOTE | 2017-05-05 14:08 | PN ---
Progress Note, Physician History of Present Illness: pulmonary alert,feeling better,less dyspneic,+tremors - Current Medication List Current Medications: Active Medications Acetaminophen (Tylenol Oral Solution -) 650 mg PO Q6H PRN PRN Reason: FEVER OR PAIN Albuterol/Ipratropium (Duoneb -) 1 amp NEB QIDR [facility] Ascorbic Acid (Vitamin C -) 500 mg PO DAILY [facility] Docusate Sodium (Colace -) 100 mg PO TID [facility] Emollient Ointment (Aquaphor -) 1 applic TP TID [facility] Ferrous Sulfate (Feosol -) 325 mg PO TIDCM [facility] Last Admin: 05/05/17 12:45 Dose: 325 mg Furosemide (Lasix -) 20 mg PO DAILY [facility] Guaifenesin (Diabetic Tussin Dm -) 10 ml PO Q4H PRN PRN Reason: COUGH Clindamycin Phosphate (Cleocin 600 Mg Premix Ivpb -) 50 mls @ 100 mls/hr IVPB Q6H-IV [facility] Meropenem 1 gm/ Dextrose 100 mls @ 200 mls/hr IVPB Q8H-IV [facility] PRN Reason: Protocol Lidocaine HCl (Xylocaine 2% Jelly) 10 applic TP ONCE PRN PRN Reason: PAIN Ondansetron HCl (Zofran Injection) 4 mg IVPUSH Q6H PRN PRN Reason: NAUSEA AND/OR VOMITING Triamcinolone Acetonide (Aristocort 0.1% Ointment -) 1 applic TP BID [facility] Warfarin Sodium (Coumadin -) 10 mg PO DAILY@1800 [facility] - Objective Vital Signs: Vital Signs Temperature 98.3 F 05/05/17 08:05 Pulse Rate 78 05/05/17 08:05 Respiratory Rate 20 05/05/17 08:11 Blood Pressure 139/56 05/05/17 08:05 O2 Sat by Pulse Oximetry (%) 97 05/05/17 08:11 Constitutional: Yes: Calm, Obese Eyes: Yes: WNL HENT: Yes: WNL Neck: Yes: WNL Cardiovascular: Yes: Regular Rate and Rhythm, S1, S2 Respiratory: Yes: Wheezes Gastrointestinal: Yes: Normal Bowel Sounds, Soft Extremities: Yes: WNL Edema: Yes Labs: CBC, BMP 05/05/17 05:35 05/05/17 05:35 INR, PTT INR 2.30 (0.82-1.09) H 05/05/17 05:35 Laboratory Tests 05/04/17 15:15 ABG pH 7.36 ABG pCO2 at Pt Temp 78.5 H* D ABG pO2 at Pt Temp 101.0 H D ABG HCO3 43.6 H* ABG O2 Sat (Measured) 97.6 Oxygen Flow Rate 5l Assessment/Plan Problem List - Problems (1) Cellulitis Code(s): L03.90 - CELLULITIS, UNSPECIFIED Qualifiers: Site of cellulitis: unspecified site Qualified Code(s): L03.90 - Cellulitis, unspecified (2) Desquamated skin Code(s): R23.4 - CHANGES IN SKIN TEXTURE (3) Sepsis Code(s): A41.9 - SEPSIS, UNSPECIFIED ORGANISM Qualifiers: Sepsis type: sepsis due to unspecified organism Qualified Code(s): A41.9 - Sepsis, unspecified organism (4) Drug-induced skin rash Code(s): L27.0 - GEN SKIN ERUPTION DUE TO DRUGS AND MEDS TAKEN INTERNALLY Assessment/Plan -Continue diureses -AC -> as there was a high concern for VTE and due to her body habitus -> diagnostic imaging cannot be performed -abx course as per ID -O2 as needed to maintain sat 90% -BD TX PRN -Needs TLC for vascular access -Sleep study as outpatient - consider neuro eval - steroids x 48h DR DOMÍNGUEZ
--- NOTE | 2017-05-05 15:10 | PN ---
Progress Note, Physician History of Present Illness: much better no issues - Current Medication List Current Medications: Active Medications Acetaminophen (Tylenol Oral Solution -) 650 mg PO Q6H PRN PRN Reason: FEVER OR PAIN Albuterol/Ipratropium (Duoneb -) 1 amp NEB QIDR [facility] Last Admin: 05/05/17 11:05 Dose: 1 amp Ascorbic Acid (Vitamin C -) 500 mg PO DAILY [facility] Docusate Sodium (Colace -) 100 mg PO TID [facility] Last Admin: 05/05/17 14:16 Dose: 100 mg Emollient Ointment (Aquaphor -) 1 applic TP TID [facility] Last Admin: 05/05/17 14:16 Dose: 1 applic Ferrous Sulfate (Feosol -) 325 mg PO TIDCM [facility] Last Admin: 05/05/17 12:45 Dose: 325 mg Furosemide (Lasix -) 20 mg PO DAILY [facility] Guaifenesin (Diabetic Tussin Dm -) 10 ml PO Q4H PRN PRN Reason: COUGH Clindamycin Phosphate (Cleocin 600 Mg Premix Ivpb -) 50 mls @ 100 mls/hr IVPB Q6H-IV [facility] Last Admin: 05/05/17 14:16 Dose: 100 mls/hr Meropenem 1 gm/ Dextrose 100 mls @ 200 mls/hr IVPB Q8H-IV [facility] PRN Reason: Protocol Lidocaine HCl (Xylocaine 2% Jelly) 10 applic TP ONCE PRN PRN Reason: PAIN Methylprednisolone Sodium Succinate (Solu-Medrol -) 40 mg IVPB Q6H-IV [facility] Ondansetron HCl (Zofran Injection) 4 mg IVPUSH Q6H PRN PRN Reason: NAUSEA AND/OR VOMITING Triamcinolone Acetonide (Aristocort 0.1% Ointment -) 1 applic TP BID [facility] Warfarin Sodium (Coumadin -) 10 mg PO DAILY@1800 [facility] - Objective Vital Signs: Vital Signs Temperature 98.3 F 05/05/17 08:05 Pulse Rate 78 05/05/17 08:05 Respiratory Rate 20 05/05/17 08:11 Blood Pressure 139/56 05/05/17 08:05 O2 Sat by Pulse Oximetry (%) 97 05/05/17 08:11 Constitutional: Yes: No Distress, Calm, Obese (morbid) Cardiovascular: Yes: Regular Rate and Rhythm Respiratory: Yes: Poor Air Entry, Other Gastrointestinal: Yes: Normal Bowel Sounds, Soft Musculoskeletal: Yes: WNL Extremities: Yes: WNL Edema: LLE: Trace, RLE: Trace Integumentary: Yes: Rash (resolving) Neurological: Yes: Alert, Oriented Psychiatric: Yes: Alert, Oriented Labs: CBC, BMP 05/05/17 05:35 05/05/17 05:35 INR, PTT INR 2.30 (0.82-1.09) H 05/05/17 05:35 Assessment/Plan - Problems (1) Cellulitis Code(s): L03.90 - CELLULITIS, UNSPECIFIED Qualifiers: Site of cellulitis: unspecified site Qualified Code(s): L03.90 - Cellulitis, unspecified (2) Desquamated skin Code(s): R23.4 - CHANGES IN SKIN TEXTURE (3) Sepsis Code(s): A41.9 - SEPSIS, UNSPECIFIED ORGANISM Qualifiers: Sepsis type: sepsis due to unspecified organism Qualified Code(s): A41.9 - Sepsis, unspecified organism (4) generalized rash 5 abd wall cellulitis morbid obesity sepsis septic shock gm positive bateremia plan stop iv abx tomorrow continue hydration continue skin care rest continue current mgmt continues to improve patient improving cellulitits abd wall much better augmentin 875 mg twice a day from tomorrow
[2017-05-05] MEDS: methylPREDNISolone NA SUCC 40 MG/1 ML VIAL IVPB SCH ×2 (16:05→21:58)
[2017-05-05] MEDS: WARFARIN NA 10 MG TABLET (FP) PO SCH (17:51)
--- NOTE | 2017-05-05 18:17 | CON.NEURO ---
Consult - History of Present Illness History of Present Illness: 61 year old obese female history of desquaating cellulitis on antibiotics, she also on steroid and bronchodialtor. She says her shaking started since she has been admitted to [facility]. Patient denies any focal weakness, headahce or history of parkinson disease. it is affecting her writing and at times ability to eat. her tremor are more when she try to do something. 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: Alzheimer's, CVA, Dementia, Migraine, Multiple Sclerosis, Peripheral Neuropathy, Parkinson's, Seizure, Syncope, TIA, Vertigo, Other Cardio/Vascular: Yes: HTN Pulmonary: Yes: Asthma, Pneumonia Gastrointestinal: No: Ascites, Cancer, Constipation, Crohn's Disease, Diverticulitis, Diverticulosis, Esophageal Varices, Gastritis, GERD, GI Bleed, Hemorrhoids, Hiatal Hernia, Inflamatory Bowel Disease, Irritable Bowel Disease, Pancreatitis, Peptic Ulcer Disease, Ulcerative Colitis, Other Hepatobiliary: No: Cirrhosis, Cholelithiasis, Cholecystitis, Choledocholithiasis , Hepatitis A, Hepatitis B, Hepatitis C, Other Renal/: No: Renal Failure, Renal Inusuff, BPH, Cancer, Hematuria, Hemodialysis , Neurogenic Bladder, Renal Calculi, UTI, Other ...: No Psych: Yes: Depression Musculoskeletal: No: Bursitis, Chronic low back pain, Hemiparesis, Hemiplegia, Osteoarthritis, Paraplegia, Other Rheumatology: No: Fibromyalgia, Gout, Lupus, Rheumatoid Arthritis, Sarcoidosis, Vasculitis, Other ENT: No: Allergic Rhinitis, Sinusitis, Other Endocrine: No: [place]'s Disease, [place]'s Disease, Diabetes Insipidus, Diabetes Mellitus, Hyperparathyroidism, Hyperthyroidism, Hypothyroidism, Osteopenia, SIADH, Other Dermatology: No: Basal Cell, Cellulitis, Eczema, Melanoma, Psoriasis, Squamous Cell, Other - Past Surgical History Past Surgical History: Yes: Colectomy Additional Surgical History: - Alcohol/Substance Use Hx Alcohol Use: No History of Substance Use: reports: None - Smoking History Smoking history: Former smoker Have you smoked in the past 12 months: No Aproximately how many cigarettes per day: 0 If you are a former smoker, when did you quit?: 1979 - Social History Usual Living Arrangement: With Spouse ADL: Support Services Occupation: unemployed History of Recent Travel: No Home Medications - Allergies Allergies/Adverse Reactions: Allergies Allergy/AdvReac Type Severity Reaction Status Date / Time piperacillin sodium Allergy Rash Verified 04/23/17 10:50 [From Zosyn] tazobactam sodium Allergy Rash Verified 04/23/17 10:50 [From Zosyn] - Home Medications Home Medications: Ambulatory Orders Acetaminophen [Tylenol] 975 mg PO Q6H PRN 02/22/16 Albuterol 2.5/Ipratropium 0.5 [Duoneb -] 1 neb NEB Q6H 02/22/16 Amitriptyline HCl [Elavil -] 10 mg PO HS 02/22/16 Fluticasone/Salmeterol [Advair 250-50 Diskus] 1 each IH BID 02/22/16 Furosemide [Lasix -] 40 mg PO DAILY 02/22/16 Gabapentin [Neurontin] 300 mg PO Q8H 02/22/16 Heparin - 5,000 unit SQ TID 02/22/16 Mag Hydrox/Al Hydrox/Simeth [Mylanta Oral Suspension -] 30 ml PO Q6H PRN Pantoprazole Sodium [Protonix] 40 mg PO DAILY 02/22/16 Polyvinyl Alcohol [Artificial Tears] 15 ml OD BID 02/22/16 Hydrocortisone 1% Ointment [Hytone 1% Ointment -] 1 applic TP Q6H PRN #0 tube Hydroxyzine HCl [Atarax -] 25 mg PO Q8H PRN #0 tablet 02/29/16 Lisinopril [Prinivil] 20 mg PO BID tablet 02/29/16 Nystatin Ointment [Mycostatin Ointment -] 1 applic TP BID applic 02/29/16 Nystatin Powder [Nystop Powder -] 1 applic TP DAILY applic 02/29/16 Vitamin A & D Top Oint - 1 applic TP BID tube 02/29/16 Family Disease History - Family Disease History Family Disease History: Heart Disease: Father Physical Exam-Neuro Vital Signs: Vital Signs Temperature 98.1 F 05/05/17 15:31 Pulse Rate 97 H 05/05/17 15:31 Respiratory Rate 20 05/05/17 15:31 Blood Pressure 121/60 05/05/17 15:31 O2 Sat by Pulse Oximetry (%) 96 05/05/17 13:20 Labs: CBC, BMP 05/05/17 05:35 05/05/17 05:35 INR, PTT INR 2.30 (0.82-1.09) H 05/05/17 05:35 NIH Stroke Scale - Total Score NIH Stroke Scale Score: 0 Assessment/Plan cc called to evaluate for tremores HPI 61 year old obese female history of desquaating cellulitis on antibiotics, she also on steroid and bronchodialtor. She says her shaking started since she has been admitted to [facility]. Patient denies any focal weakness, headahce or history of parkinson disease. it is affecting her writing and at times ability to eat. her tremor are more when she try to do something. Medical History as above Medication reviewed she is on methylprednisone and bronchodilator Neurological Examination alert oriented x 3 eomi, and no face asymmetry there is tremors on outstretching hands no bradykinesia or rigidity Assessment --Action tremor, aggravate by prednisone and bronchodilator Plan -- discuss with patient , would hold medication ( either inderal or primidone) for now , and would do tsh level - would consider medication for tremor if her tremors remains after hospital discharged and she remain symptomatic no need for brain imaging thanks for consult Miles Schuler
[2017-05-05] MEDS: ACETAMINOPHEN 650 MG/20.3 ML ORAL SOLUTION (CUPS) PO PRN (21:58)
[2017-05-06] MEDS: CLINDAMYCIN 600MG PREMIX IVPB 50 ML IVPB SCH ×3 (02:00→14:37)
[2017-05-06] MEDS: MEROPENEM 1 GM in DEXTROSE 5%-WATER - 100 ML IVPB SCH ×3 (02:42→18:49)
[2017-05-06] MEDS: methylPREDNISolone NA SUCC 40 MG/1 ML VIAL IVPB SCH ×4 (03:09→21:06)
[2017-05-06] MEDS: MINERAL OIL/PET HY-PHL TOPICAL OINTMENT 454 GM JAR TP SCH ×2 (06:09→14:37)
[2017-05-06] MEDS: DOCUSATE SODIUM 100 MG CAPSULE (FP) PO SCH ×3 (06:10→23:19)
[2017-05-06] MEDS: ALBUTEROL SO4 2.5/IPRATROPIUM 0.5 INH SOL 3 ML VIAL.NEB. NEB SCH ×4 (06:30→18:14)
[2017-05-06 08:44] LABS: INR 1.89 (0.82-1.09); PROTHROMBIN TIME (PATIENT) 21.1 SEC (9.98-11.88)
--- NOTE | 2017-05-06 08:56 | PN ---
Progress Note (short form) - Note Progress Note: Feels better but still has itching Vital Signs Period Temp Pulse Resp BP Sys/Ojnes Pulse Ox Last 24 Hr 97.9 F-99.0 F 88-97 18-20 107-146/60-78 96-96 PE: AOx3 Neck: Supple Lungs: CTA CVS: S1S2 Abd: Benign, Ext: Leg edema with stasis changes Skin: drying patchy erythematous rash with desquamation CMP Sodium 137 mmol/L (136-145) 05/05/17 05:35 Potassium 5.1 mmol/L (3.5-5.1) 05/05/17 05:35 Chloride 94 mmol/L (98-107) L 05/05/17 05:35 Carbon Dioxide 42 mmol/L (21-32) H 05/05/17 05:35 Anion Gap 1 (8-16) L 05/05/17 05:35 BUN 10 mg/dL (7-18) 05/05/17 05:35 Creatinine 0.5 mg/dL (0.55-1.02) L 05/05/17 05:35 Creat Clearance w eGFR > 60 (>60) 05/05/17 05:35 POC Glucometer 94 UNITS (()) 05/04/17 06:05 Random Glucose 93 mg/dL (74-106) 05/05/17 05:35 Hemoglobin A1c % 7.6 % (4.8-6.0) H 04/24/17 05:15 Lactic Acid 1.0 mmol/L (0.4-2.0) 04/24/17 05:15 Calcium 9.1 mg/dL (8.5-10.1) 05/05/17 05:35 Phosphorus 4.2 mg/dL (2.5-4.9) 05/04/17 05:35 Magnesium 1.8 mg/dL (1.8-2.4) 05/04/17 05:35 Iron 15 ug/dL (27-159) L 04/27/17 05:15 TIBC 170 ug/dL (250-450) L 04/27/17 05:15 Iron Saturation 9 % (15-55) L 04/27/17 05:15 Total Bilirubin 0.7 mg/dL (0.2-1.0) D 05/05/17 05:35 AST 17 U/L (15-37) 05/05/17 05:35 ALT 21 U/L (12-78) D 05/05/17 05:35 Alkaline Phosphatase 54 U/L (45-117) 05/05/17 05:35 Creatine Kinase 24 IU/L (26-192) L 04/30/17 05:15 Creatine Kinase Index 0.8 % (0.0-5.0) 04/23/17 11:40 CK-MB (CK-2) 1.225 ng/ml (0.5-3.6) 04/23/17 11:40 Troponin I < 0.02 ng/ml (0.00-0.05) 04/26/17 05:20 B-Natriuretic Peptide Cancelled 04/26/17 06:00 Total Protein 7.1 g/dl (6.4-8.2) 05/05/17 05:35 Albumin 2.2 g/dl (3.4-5.0) L 05/05/17 05:35 TSH 1.90 uIU/ml (0.358-3.74) 04/30/17 12:00 Cortisol AM Sample 4.7 ug/dL (.) 05/02/17 05:30 Current Medications Generic Name Dose Route Start Last Admin Trade Name Freq PRN Reason Stop Dose Admin Acetaminophen 650 mg 05/05/17 11:43 05/05/17 21:58 Tylenol Oral Solution - PO 650 mg Q6H PRN Administration FEVER OR PAIN Albuterol/Ipratropium 1 amp 05/05/17 12:00 05/06/17 06:30 Duoneb - NEB 1 amp QIDR [facility] Administration Ascorbic Acid 500 mg 05/06/17 10:00 Vitamin C - PO DAILY [facility] Docusate Sodium 100 mg 05/05/17 14:00 05/06/17 06:10 Colace - PO 100 mg TID [facility] Administration Emollient Ointment 1 applic 05/05/17 14:00 05/06/17 06:09 Aquaphor - TP 1 applic TID [facility] Administration Ferrous Sulfate 325 mg 05/05/17 12:00 05/05/17 17:51 Feosol - PO 325 mg TIDCM [facility] Administration Furosemide 20 mg 05/06/17 10:00 Lasix - PO DAILY [facility] Guaifenesin 10 ml 05/05/17 11:43 Diabetic Tussin Dm - PO Q4H PRN COUGH Clindamycin Phosphate 50 mls @ 100 mls/hr 05/05/17 15:00 05/06/17 02:00 Cleocin 600 Mg Premix Ivpb - IVPB 100 mls/hr Q6H-IV [facility] Administration Meropenem 1 gm/ Dextrose 100 mls @ 200 mls/hr 05/05/17 18:00 05/06/17 02:42 IVPB 200 mls/hr Q8H-IV [facility] Administration Protocol Lidocaine HCl 10 applic 05/05/17 11:43 Xylocaine 2% Jelly TP ONCE PRN PAIN Methylprednisolone Sodium Succinate 40 mg 05/05/17 15:00 05/06/17 03:09 Solu-Medrol - IVPB 40 mg Q6H-IV [facility] Administration Ondansetron HCl 4 mg 05/05/17 11:43 Zofran Injection IVPUSH Q6H PRN NAUSEA AND/OR VOMITING Triamcinolone Acetonide 1 applic 05/05/17 22:00 05/05/17 21:59 Aristocort 0.1% Ointment - TP 1 applic BID [facility] Administration Warfarin Sodium 10 mg 05/05/17 18:00 05/05/17 17:51 Coumadin - PO 10 mg DAILY@1800 [facility] Administration AP: Desquamating rash improving Sepsis Left Adrenal Incidentaloma Morbid obesity R/O PE W/U for adrenal incidentaloma done during admission in showed normal plasma catecholamines which rules out pheochromocytoma 1mg Dexa suppression test this admission showed Cortisol of 4.7. Further testing Can't be done as pt is now on steroids to treat Asthma exacerbation. Will need to repeat CT abdomen to rule out any change in size of the adrenal mass. Pt however has not been able to get CT scans as she could not fit into the CT scanner. Will f/u
[2017-05-06] MEDS: FERROUS SO4 325 MG TABLET (FP) PO SCH ×3 (09:08→18:48)
[2017-05-06] MEDS ORDERED: PT OWN MED DRAWER 7, Y5N ONE ×2 (10:14→11:13)
[2017-05-06] MEDS: TRIAMCINOLONE ACET 0.1% OINT 80 GM TUBE TP SCH ×2 (10:20→23:55)
[2017-05-06] MEDS: FUROSEMIDE 20 MG TABLET (FP) PO SCH (10:20)
[2017-05-06] MEDS: ASCORBIC ACID 500 MG TABLET (FP) PO SCH (10:20)
--- NOTE | 2017-05-06 12:50 | PN ---
Progress Note, Physician History of Present Illness: pulmonary alert,nad,less congested - Current Medication List Current Medications: Active Medications Acetaminophen (Tylenol Oral Solution -) 650 mg PO Q6H PRN PRN Reason: FEVER OR PAIN Last Admin: 05/05/17 21:58 Dose: 650 mg Albuterol/Ipratropium (Duoneb -) 1 amp NEB QIDR [facility] Last Admin: 05/06/17 06:30 Dose: 1 amp Ascorbic Acid (Vitamin C -) 500 mg PO DAILY [facility] Last Admin: 05/06/17 10:20 Dose: 500 mg Docusate Sodium (Colace -) 100 mg PO TID [facility] Last Admin: 05/06/17 06:10 Dose: 100 mg Emollient Ointment (Aquaphor -) 1 applic TP TID [facility] Last Admin: 05/06/17 06:09 Dose: 1 applic Ferrous Sulfate (Feosol -) 325 mg PO TIDCM [facility] Last Admin: 05/06/17 12:17 Dose: 325 mg Furosemide (Lasix -) 20 mg PO DAILY [facility] Last Admin: 05/06/17 10:20 Dose: 20 mg Guaifenesin (Diabetic Tussin Dm -) 10 ml PO Q4H PRN PRN Reason: COUGH Clindamycin Phosphate (Cleocin 600 Mg Premix Ivpb -) 50 mls @ 100 mls/hr IVPB Q6H-IV [facility] Last Admin: 05/06/17 09:38 Dose: 100 mls/hr Meropenem 1 gm/ Dextrose 100 mls @ 200 mls/hr IVPB Q8H-IV [facility] PRN Reason: Protocol Last Admin: 05/06/17 11:34 Dose: 200 mls/hr Lidocaine HCl (Xylocaine 2% Jelly) 10 applic TP ONCE PRN PRN Reason: PAIN Methylprednisolone Sodium Succinate (Solu-Medrol -) 40 mg IVPB Q6H-IV [facility] Last Admin: 05/06/17 09:08 Dose: 40 mg Ondansetron HCl (Zofran Injection) 4 mg IVPUSH Q6H PRN PRN Reason: NAUSEA AND/OR VOMITING Triamcinolone Acetonide (Aristocort 0.1% Ointment -) 1 applic TP BID [facility] Last Admin: 05/06/17 10:20 Dose: 1 applic Warfarin Sodium (Coumadin -) 10 mg PO DAILY@1800 [facility] Last Admin: 05/05/17 17:51 Dose: 10 mg - Objective Vital Signs: Vital Signs Temperature 98.3 F 05/06/17 10:00 Pulse Rate 88 05/06/17 10:00 Respiratory Rate 22 05/06/17 10:00 Blood Pressure 124/62 05/06/17 10:00 O2 Sat by Pulse Oximetry (%) 96 05/05/17 22:00 Constitutional: Yes: Calm, Obese Eyes: Yes: WNL HENT: Yes: WNL Neck: Yes: WNL Cardiovascular: Yes: Regular Rate and Rhythm, S1, S2 Respiratory: Yes: Wheezes (few wheezes) Gastrointestinal: Yes: Normal Bowel Sounds, Soft Extremities: Yes: WNL Edema: Yes Labs: CBC, BMP Assessment/Plan Problem List - Problems (1) Cellulitis Code(s): L03.90 - CELLULITIS, UNSPECIFIED Qualifiers: Site of cellulitis: unspecified site Qualified Code(s): L03.90 - Cellulitis, unspecified (2) Desquamated skin Code(s): R23.4 - CHANGES IN SKIN TEXTURE (3) Sepsis Code(s): A41.9 - SEPSIS, UNSPECIFIED ORGANISM Qualifiers: Sepsis type: sepsis due to unspecified organism Qualified Code(s): A41.9 - Sepsis, unspecified organism (4) Drug-induced skin rash Code(s): L27.0 - GEN SKIN ERUPTION DUE TO DRUGS AND MEDS TAKEN INTERNALLY Assessment/Plan -Continue diureses -AC -> as there was a high concern for VTE and due to her body habitus -> diagnostic imaging cannot be performed -abx course as per ID -O2 as needed to maintain sat 90% -BD TX PRN -Sleep study as outpatient - continue steroids DR DOMÍNGUEZ
[2017-05-06] MEDS ORDERED: HEPARIN NA (PORCINE) 5,000 UNITS/ML 1ML VIAL IVPUSH PRN ×2 (12:55)
[2017-05-06] MEDS: HEPARIN - 25,000 UNIT in SODIUM CHLORIDE 495 ML IV SCH ×2 (14:25→22:02)
[2017-05-06] MEDS ORDERED: diphenhydrAMINE HCL 25 MG CAPSULE (FP) PO PRN (14:37)
[2017-05-06] MEDS ORDERED: SIMETHICONE 80 MG TAB.CHEW (FP) PO PRN (14:37)
--- NOTE | 2017-05-06 16:09 | PN ---
Progress Note, Physician History of Present Illness: feels sob wheezing whitish sputum production - Current Medication List Current Medications: Active Medications Acetaminophen (Tylenol Oral Solution -) 650 mg PO Q6H PRN PRN Reason: FEVER OR PAIN Last Admin: 05/05/17 21:58 Dose: 650 mg Albuterol/Ipratropium (Duoneb -) 1 amp NEB QIDR [facility] Last Admin: 05/06/17 12:45 Dose: Not Given Ascorbic Acid (Vitamin C -) 500 mg PO DAILY [facility] Last Admin: 05/06/17 10:20 Dose: 500 mg Diphenhydramine HCl (Benadryl -) 25 mg PO Q8H PRN PRN Reason: FOR ITCHING Docusate Sodium (Colace -) 100 mg PO TID [facility] Last Admin: 05/06/17 14:36 Dose: Not Given Emollient Ointment (Aquaphor -) 1 applic TP TID [facility] Last Admin: 05/06/17 14:37 Dose: 1 applic Ferrous Sulfate (Feosol -) 325 mg PO TIDCM [facility] Last Admin: 05/06/17 12:17 Dose: 325 mg Furosemide (Lasix -) 20 mg PO DAILY [facility] Last Admin: 05/06/17 10:20 Dose: 20 mg Guaifenesin (Diabetic Tussin Dm -) 10 ml PO Q4H PRN PRN Reason: COUGH Heparin Sodium (Porcine) (Heparin -) 1,000 unit IVPUSH PRN PRN PRN Reason: Heparin Heparin Sodium (Porcine) (Heparin -) 5,000 unit IVPUSH PRN PRN PRN Reason: Heparin Clindamycin Phosphate (Cleocin 600 Mg Premix Ivpb -) 50 mls @ 100 mls/hr IVPB Q6H-IV [facility] Last Admin: 05/06/17 14:37 Dose: 100 mls/hr Meropenem 1 gm/ Dextrose 100 mls @ 200 mls/hr IVPB Q8H-IV [facility] PRN Reason: Protocol Last Admin: 05/06/17 11:34 Dose: 200 mls/hr Heparin Sodium (Porcine) 25, (000 unit/ Sodium Chloride) 500 mls @ 53 mls/hr IV TITR [facility]; 2,650 UNIT/HR PRN Reason: Protocol Last Admin: 05/06/17 14:25 Dose: 53 mls/hr Lidocaine HCl (Xylocaine 2% Jelly) 10 applic TP ONCE PRN PRN Reason: PAIN Methylprednisolone Sodium Succinate (Solu-Medrol -) 40 mg IVPB Q6H-IV [facility] Last Admin: 05/06/17 14:25 Dose: 40 mg Ondansetron HCl (Zofran Injection) 4 mg IVPUSH Q6H PRN PRN Reason: NAUSEA AND/OR VOMITING Simethicone (Mylicon -) 80 mg PO QID PRN PRN Reason: GAS Triamcinolone Acetonide (Aristocort 0.1% Ointment -) 1 applic TP BID [facility] Last Admin: 05/06/17 10:20 Dose: 1 applic Warfarin Sodium (Coumadin -) 10 mg PO DAILY@1800 [facility] Last Admin: 05/05/17 17:51 Dose: 10 mg - Objective Vital Signs: Vital Signs Temperature 98.7 F 05/06/17 14:43 Pulse Rate 103 H 05/06/17 14:43 Respiratory Rate 22 05/06/17 14:43 Blood Pressure 131/55 05/06/17 14:43 O2 Sat by Pulse Oximetry (%) 96 05/05/17 22:00 Constitutional: Yes: Mild Distress, Obese (morbid), Other (coughing fits) Cardiovascular: Yes: Regular Rate and Rhythm Respiratory: Yes: On Nasal O2, Poor Air Entry Gastrointestinal: Yes: Normal Bowel Sounds, Soft Musculoskeletal: Yes: Other Extremities: Yes: WNL Integumentary: Yes: Rash (has nearly resolved) Neurological: Yes: Alert, Oriented Psychiatric: Yes: Alert, Oriented Labs: CBC, BMP 05/05/17 05:35 05/05/17 05:35 INR, PTT INR 1.89 (0.82-1.09) H 05/06/17 06:00 Assessment/Plan - Problems (1) Cellulitis Code(s): L03.90 - CELLULITIS, UNSPECIFIED Qualifiers: Site of cellulitis: unspecified site Qualified Code(s): L03.90 - Cellulitis, unspecified (2) Desquamated skin Code(s): R23.4 - CHANGES IN SKIN TEXTURE (3) Sepsis Code(s): A41.9 - SEPSIS, UNSPECIFIED ORGANISM Qualifiers: Sepsis type: sepsis due to unspecified organism Qualified Code(s): A41.9 - Sepsis, unspecified organism (4) generalized rash 5 abd wall cellulitis morbid obesity sepsis septic shock gm positive bateremia plan stopped clinda continue meropenam for now incentive geraldine rest as per primary will stop carey tomorrow
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
[2017-05-06] MEDS: WARFARIN NA 10 MG TABLET (FP) PO SCH (18:49)
[2017-05-06] MEDS: diphenhydrAMINE HCL 25 MG CAPSULE (FP) PO PRN (19:06)
[2017-05-07] MEDS: ALBUTEROL SO4 2.5/IPRATROPIUM 0.5 INH SOL 3 ML VIAL.NEB. NEB SCH ×5 (00:05→23:21)
[2017-05-07] MEDS: HEPARIN - 25,000 UNIT in SODIUM CHLORIDE 495 ML IV SCH ×4 (00:51→20:27)
[2017-05-07] MEDS: MEROPENEM 1 GM in DEXTROSE 5%-WATER - 100 ML IVPB SCH ×2 (01:40→10:45)
[2017-05-07] MEDS: MINERAL OIL/PET HY-PHL TOPICAL OINTMENT 454 GM JAR TP SCH ×4 (01:41→21:16)
[2017-05-07] MEDS: methylPREDNISolone NA SUCC 40 MG/1 ML VIAL IVPB SCH ×4 (03:10→21:14)
[2017-05-07] MEDS: DOCUSATE SODIUM 100 MG CAPSULE (FP) PO SCH ×4 (05:38→21:44)
[2017-05-07] MEDS: FERROUS SO4 325 MG TABLET (FP) PO SCH ×3 (08:14→18:33)
[2017-05-07 08:25] LABS: INR 1.91 (0.82-1.09); PROTHROMBIN TIME (PATIENT) 21.3 SEC (9.98-11.88)
[2017-05-07 08:43] LABS: ANION GAP 4 (8-16); CALCIUM 8.6 mg/dL (8.5-10.1); CO2 36 mmol/L (21-32); CREATININE 0.5 mg/dL (0.55-1.02); GLUCOSE,RANDOM 148 mg/dL (74-106)
[2017-05-07 08:56] LABS: WHITE BLOOD COUNT 10.7 K/mm3 (4.0-10.0)
[2017-05-07 08:57] LABS: MCH 20.8 pg (25.7-33.7); MCHC 30.1 g/dl (32.0-36.0); MEAN PLT VOLUME 8.7 fl (7.5-11.1); PLATELET COUNT 268 K/MM3 (134-434); PLATELET ESTIMATE ADEQUATE (NORMAL); RDW 24.6 % (11.6-15.6)
[2017-05-07] MEDS ORDERED: PT OWN MED DRAWER 7, Y5N ONE (10:11)
[2017-05-07] MEDS: FUROSEMIDE 20 MG TABLET (FP) PO SCH (10:19)
[2017-05-07] MEDS: ASCORBIC ACID 500 MG TABLET (FP) PO SCH (10:19)
[2017-05-07] MEDS: ACETAMINOPHEN 650 MG/20.3 ML ORAL SOLUTION (CUPS) PO PRN (10:20)
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
[2017-05-07] MEDS: TRIAMCINOLONE ACET 0.1% OINT 80 GM TUBE TP SCH ×2 (13:23→21:15)
--- NOTE | 2017-05-07 13:42 | PN ---
Progress Note, Physician History of Present Illness: feels much better no new issues - Current Medication List Current Medications: Active Medications Acetaminophen (Tylenol Oral Solution -) 650 mg PO Q6H PRN PRN Reason: FEVER OR PAIN Last Admin: 05/07/17 10:20 Dose: 650 mg Albuterol/Ipratropium (Duoneb -) 1 amp NEB QIDR [facility] Last Admin: 05/07/17 12:04 Dose: 1 amp Ascorbic Acid (Vitamin C -) 500 mg PO DAILY [facility] Last Admin: 05/07/17 10:19 Dose: 500 mg Diphenhydramine HCl (Benadryl -) 25 mg PO Q8H PRN PRN Reason: FOR ITCHING Last Admin: 05/06/17 19:06 Dose: 25 mg Docusate Sodium (Colace -) 100 mg PO TID [facility] Last Admin: 05/07/17 13:21 Dose: Not Given Emollient Ointment (Aquaphor -) 1 applic TP TID [facility] Last Admin: 05/07/17 06:04 Dose: 1 applic Emollient Ointment (Aquaphor -) 1 applic TP BID WAY[facility] Ferrous Sulfate (Feosol -) 325 mg PO TIDCM [facility] Last Admin: 05/07/17 13:21 Dose: 325 mg Furosemide (Lasix -) 20 mg PO DAILY [facility] Last Admin: 05/07/17 10:19 Dose: 20 mg Guaifenesin (Diabetic Tussin Dm -) 10 ml PO Q4H PRN PRN Reason: COUGH Heparin Sodium (Porcine) (Heparin -) 1,000 unit IVPUSH PRN PRN PRN Reason: Heparin Heparin Sodium (Porcine) (Heparin -) 5,000 unit IVPUSH PRN PRN PRN Reason: Heparin Meropenem 1 gm/ Dextrose 100 mls @ 200 mls/hr IVPB Q8H-IV WAYNE PRN Reason: Protocol Last Admin: 05/07/17 10:45 Dose: 200 mls/hr Heparin Sodium (Porcine) 25, (000 unit/ Sodium Chloride) 500 mls @ 53 mls/hr IV TITR WAYNE; 2,650 UNIT/HR PRN Reason: Protocol Last Admin: 05/07/17 11:36 Dose: 50 mls/hr Lidocaine HCl (Xylocaine 2% Jelly) 10 applic TP ONCE PRN PRN Reason: PAIN Methylprednisolone Sodium Succinate (Solu-Medrol -) 40 mg IVPB Q6H-IV [facility] Last Admin: 05/07/17 09:08 Dose: 40 mg Ondansetron HCl (Zofran Injection) 4 mg IVPUSH Q6H PRN PRN Reason: NAUSEA AND/OR VOMITING Oxycodone HCl (Roxicodone -) 5 mg PO Q6H PRN PRN Reason: PAIN Simethicone (Mylicon -) 80 mg PO QID PRN PRN Reason: GAS Triamcinolone Acetonide (Aristocort 0.1% Ointment -) 1 applic TP BID [facility] Last Admin: 05/07/17 13:23 Dose: 1 applic Warfarin Sodium (Coumadin -) 10 mg PO DAILY@1800 [facility] Last Admin: 05/06/17 18:49 Dose: 10 mg - Objective Vital Signs: Vital Signs Temperature 98.6 F 05/07/17 10:00 Pulse Rate 102 H 05/07/17 10:00 Respiratory Rate 18 05/07/17 10:00 Blood Pressure 135/61 05/07/17 10:00 O2 Sat by Pulse Oximetry (%) 96 05/06/17 22:00 Constitutional: Yes: No Distress, Calm, Obese (morbid obesity) Cardiovascular: Yes: Regular Rate and Rhythm Respiratory: Yes: Regular, On Nasal O2 Gastrointestinal: Yes: Normal Bowel Sounds, Soft Musculoskeletal: Yes: Other Extremities: Yes: Other Edema: LLE: 1+, RLE: 1+ Integumentary: Yes: Rash (resolved) Neurological: Yes: Alert, Oriented Psychiatric: Yes: Alert, Oriented Labs: CBC, BMP 05/07/17 07:35 05/07/17 07:35 INR, PTT INR 1.91 (0.82-1.09) H 05/07/17 07:35 Assessment/Plan - Problems (1) Cellulitis Code(s): L03.90 - CELLULITIS, UNSPECIFIED Qualifiers: Site of cellulitis: unspecified site Qualified Code(s): L03.90 - Cellulitis, unspecified (2) Desquamated skin Code(s): R23.4 - CHANGES IN SKIN TEXTURE (3) Sepsis Code(s): A41.9 - SEPSIS, UNSPECIFIED ORGANISM Qualifiers: Sepsis type: sepsis due to unspecified organism Qualified Code(s): A41.9 - Sepsis, unspecified organism (4) generalized rash 5 abd wall cellulitis morbid obesity sepsis septic shock gm positive bateremia plan stopped all abx will monitor without abx rest continue current mgmt patient improving
--- NOTE | 2017-05-07 13:56 | PN ---
Progress Note, Physician History of Present Illness: pulmonary alert,no distress,less congested - Current Medication List Current Medications: Active Medications Acetaminophen (Tylenol Oral Solution -) 650 mg PO Q6H PRN PRN Reason: FEVER OR PAIN Last Admin: 05/07/17 10:20 Dose: 650 mg Albuterol/Ipratropium (Duoneb -) 1 amp NEB QIDR [facility] Last Admin: 05/07/17 12:04 Dose: 1 amp Ascorbic Acid (Vitamin C -) 500 mg PO DAILY [facility] Last Admin: 05/07/17 10:19 Dose: 500 mg Diphenhydramine HCl (Benadryl -) 25 mg PO Q8H PRN PRN Reason: FOR ITCHING Last Admin: 05/06/17 19:06 Dose: 25 mg Docusate Sodium (Colace -) 100 mg PO TID [facility] Last Admin: 05/07/17 13:21 Dose: Not Given Emollient Ointment (Aquaphor -) 1 applic TP TID [facility] Last Admin: 05/07/17 06:04 Dose: 1 applic Emollient Ointment (Aquaphor -) 1 applic TP BID [facility] Ferrous Sulfate (Feosol -) 325 mg PO TIDCM [facility] Last Admin: 05/07/17 13:21 Dose: 325 mg Furosemide (Lasix -) 20 mg PO DAILY [facility] Last Admin: 05/07/17 10:19 Dose: 20 mg Guaifenesin (Diabetic Tussin Dm -) 10 ml PO Q4H PRN PRN Reason: COUGH Heparin Sodium (Porcine) (Heparin -) 1,000 unit IVPUSH PRN PRN PRN Reason: Heparin Heparin Sodium (Porcine) (Heparin -) 5,000 unit IVPUSH PRN PRN PRN Reason: Heparin Heparin Sodium (Porcine) 25, (000 unit/ Sodium Chloride) 500 mls @ 53 mls/hr IV TITR WAYNE; 2,650 UNIT/HR PRN Reason: Protocol Last Admin: 05/07/17 11:36 Dose: 50 mls/hr Lidocaine HCl (Xylocaine 2% Jelly) 10 applic TP ONCE PRN PRN Reason: PAIN Methylprednisolone Sodium Succinate (Solu-Medrol -) 40 mg IVPB Q6H-IV [facility] Last Admin: 05/07/17 09:08 Dose: 40 mg Ondansetron HCl (Zofran Injection) 4 mg IVPUSH Q6H PRN PRN Reason: NAUSEA AND/OR VOMITING Oxycodone HCl (Roxicodone -) 5 mg PO Q6H PRN PRN Reason: PAIN Simethicone (Mylicon -) 80 mg PO QID PRN PRN Reason: GAS Triamcinolone Acetonide (Aristocort 0.1% Ointment -) 1 applic TP BID [facility] Last Admin: 05/07/17 13:23 Dose: 1 applic Warfarin Sodium (Coumadin -) 10 mg PO DAILY@1800 [facility] Last Admin: 05/06/17 18:49 Dose: 10 mg - Objective Vital Signs: Vital Signs Temperature 98.6 F 05/07/17 10:00 Pulse Rate 102 H 05/07/17 10:00 Respiratory Rate 18 05/07/17 10:00 Blood Pressure 135/61 05/07/17 10:00 O2 Sat by Pulse Oximetry (%) 96 05/06/17 22:00 Constitutional: Yes: Calm, Obese Eyes: Yes: WNL HENT: Yes: WNL Neck: Yes: WNL Cardiovascular: Yes: Regular Rate and Rhythm, S1, S2 Respiratory: Yes: Wheezes (less wheezes) Gastrointestinal: Yes: Normal Bowel Sounds, Soft Extremities: Yes: WNL Edema: Yes Labs: CBC, BMP 05/07/17 07:35 05/07/17 07:35 INR, PTT INR 1.91 (0.82-1.09) H 05/07/17 07:35 Assessment/Plan Problem List - Problems (1) Cellulitis Code(s): L03.90 - CELLULITIS, UNSPECIFIED Qualifiers: Site of cellulitis: unspecified site Qualified Code(s): L03.90 - Cellulitis, unspecified (2) Desquamated skin Code(s): R23.4 - CHANGES IN SKIN TEXTURE (3) Sepsis Code(s): A41.9 - SEPSIS, UNSPECIFIED ORGANISM Qualifiers: Sepsis type: sepsis due to unspecified organism Qualified Code(s): A41.9 - Sepsis, unspecified organism (4) Drug-induced skin rash Code(s): L27.0 - GEN SKIN ERUPTION DUE TO DRUGS AND MEDS TAKEN INTERNALLY Assessment/Plan -Continue diureses -AC -> as there was a high concern for VTE and due to her body habitus -> diagnostic imaging cannot be performed -abx course as per ID -O2 as needed to maintain sat 90% -BD TX PRN -Sleep study as outpatient - DC steroids DR DOMÍNGUEZ
[2017-05-07] MEDS: oxyCODONE HCL 5 MG TABLET PO PRN (15:53)
[2017-05-07] MEDS: WARFARIN NA 10 MG TABLET (FP) PO SCH (18:33)
[2017-05-07] MEDS: diphenhydrAMINE HCL 25 MG CAPSULE (FP) PO PRN (21:44)
[2017-05-08] MEDS: HEPARIN - 25,000 UNIT in SODIUM CHLORIDE 495 ML IV SCH ×2 (00:20→09:09)
[2017-05-08] MEDS: methylPREDNISolone NA SUCC 40 MG/1 ML VIAL IVPB SCH ×2 (02:21→09:08)
[2017-05-08] MEDS: DOCUSATE SODIUM 100 MG CAPSULE (FP) PO SCH ×3 (06:02→22:44)
[2017-05-08] MEDS: ALBUTEROL SO4 2.5/IPRATROPIUM 0.5 INH SOL 3 ML VIAL.NEB. NEB SCH ×4 (06:40→23:42)
[2017-05-08] MEDS: oxyCODONE HCL 5 MG TABLET PO PRN ×2 (07:12→14:38)
[2017-05-08 08:34] LABS: BASOPHIL 0.1 % (0-2.0); MCH 20.6 pg (25.7-33.7); MCH 20.7 pg (25.7-33.7); MCHC 29.5 g/dl (32.0-36.0); MEAN CELL VOLUME 69.7 fl (80-96); MEAN PLT VOLUME 8.8 fl (7.5-11.1); MEAN PLT VOLUME 9.1 fl (7.5-11.1); NEUTROPHILS 83.9 % (42.8-82.8); PLATELET COUNT 253 K/MM3 (134-434); PLATELET COUNT 255 K/MM3 (134-434); RDW 24.7 % (11.6-15.6); RDW 25.1 % (11.6-15.6); WHITE BLOOD COUNT 10.8 K/mm3 (4.0-10.0); WHITE BLOOD COUNT 10.9 K/mm3 (4.0-10.0)
[2017-05-08 08:45] LABS: INR 1.98 (0.82-1.09); PROTHROMBIN TIME (PATIENT) 22.1 SEC (9.98-11.88)
[2017-05-08] MEDS: FERROUS SO4 325 MG TABLET (FP) PO SCH ×3 (09:08→17:34)
[2017-05-08] MEDS: ASCORBIC ACID 500 MG TABLET (FP) PO SCH (09:08)
[2017-05-08] MEDS: FUROSEMIDE 20 MG TABLET (FP) PO SCH (09:08)
--- NOTE | 2017-05-08 10:45 | DS ---
Physical Exam: SUBJECTIVE: Patient seen and examined OBJECTIVE: Vital Signs Period Temp Pulse Resp BP Sys/Jones Pulse Ox Last 24 Hr 97.7 F-98.5 F 87-105 18-24 114-136/66-79 94-94 PHYSICAL EXAM GENERAL: The patient is awake, alert, and fully oriented, in no acute distress. HEAD: Normal with no signs of trauma. EYES: PERRL, extraocular movements intact, sclera anicteric, conjunctiva clear. ENT: Ears normal, nares patent, oropharynx clear without exudates, moist mucous membranes. NECK: Trachea midline, full range of motion, supple. LUNGS: Breath sounds equal, clear to auscultation bilaterally, no wheezes, no crackles, no accessory muscle use. HEART: Regular rate and rhythm, S1, S2 without murmur, rub or gallop. ABDOMEN: Soft, nontender, nondistended, normoactive bowel sounds, no guarding, no rebound, no hepatosplenomegaly, no masses. EXTREMITIES: 2+ pulses, warm, well-perfused, no edema. NEUROLOGICAL: Cranial nerves II through XII grossly intact. Normal speech, gait not observed. PSYCH: Normal mood, normal affect. SKIN: Warm, dry, normal turgor, no rashes or lesions noted. LABS Laboratory Results - last 24 hr 05/07/17 05/08/17 05/08/17 18:45 08:00 08:00 WBC 10.8 H RBC 4.68 Hgb 9.7 L Hct 32.8 MCV 70.0 L MCH 20.7 L MCHC 29.5 L RDW 25.1 H Plt Count 253 MPV 9.1 Neutrophils % Lymphocytes % Monocytes % Eosinophils % Basophils % INR PTT (Actin FS) 83.9 H 126.3 H D 05/08/17 05/08/17 08:00 08:00 WBC 10.9 H RBC 4.70 Hgb 9.7 L Hct 32.8 MCV 69.7 L MCH 20.6 L MCHC 29.5 L RDW 24.7 H Plt Count 255 MPV 8.8 Neutrophils % 83.9 H Lymphocytes % 10.9 Monocytes % 5.1 Eosinophils % 0.0 D Basophils % 0.1 INR 1.98 H PTT (Actin FS) HOSPITAL COURSE: Date of Admission:04/23/17 Date of Discharge: 05/08/17 Minutes to complete discharge: 45 Discharge Summary Reason For Visit: CELLULITIS,SEPSIS Current Active Problems Acute on chronic diastolic CHF (congestive heart failure) (Acute) Cellulitis (Acute) Congestive heart disease (Acute) D-dimer, elevated (Acute) Desquamated skin (Acute) Hypoalbuminemia (Acute) Hypotension (Acute) Microcytic anemia (Acute) Sepsis (Acute) Severe sepsis (Acute) - Instructions Referrals: Cindy Marlow MD [Primary Care Provider] - - Home Medications Comprehensive Discharge Medication List: Ambulatory Orders Acetaminophen [Tylenol] 975 mg PO Q6H PRN 02/22/16 Albuterol 2.5/Ipratropium 0.5 [Duoneb -] 1 neb NEB Q6H 02/22/16 Amitriptyline HCl [Elavil -] 10 mg PO HS 02/22/16 Fluticasone/Salmeterol [Advair 250-50 Diskus] 1 each IH BID 02/22/16 Furosemide [Lasix -] 40 mg PO DAILY 02/22/16 Gabapentin [Neurontin] 300 mg PO Q8H 02/22/16 Heparin - 5,000 unit SQ TID 02/22/16 Mag Hydrox/Al Hydrox/Simeth [Mylanta Oral Suspension -] 30 ml PO Q6H PRN Pantoprazole Sodium [Protonix] 40 mg PO DAILY 02/22/16 Polyvinyl Alcohol [Artificial Tears] 15 ml OD BID 02/22/16 Hydrocortisone 1% Ointment [Hytone 1% Ointment -] 1 applic TP Q6H PRN #0 tube Hydroxyzine HCl [Atarax -] 25 mg PO Q8H PRN #0 tablet 02/29/16 Lisinopril [Prinivil] 20 mg PO BID tablet 02/29/16 Nystatin Ointment [Mycostatin Ointment -] 1 applic TP BID applic 02/29/16 Nystatin Powder [Nystop Powder -] 1 applic TP DAILY applic 02/29/16 Vitamin A & D Top Oint - 1 applic TP BID tube 02/29/16 This patient is new to me today: Yes Date on this admission: 05/08/17 Emergency Visit: Yes ED Registration Date: 04/23/17 Care time: The patient presented to the Emergency Department on the above date and was hospitalized for further evaluation of their emergent condition. Critical Care patient: No - Discharge Referral Referred to [facility] Med P.C.: No
--- NOTE | 2017-05-08 11:08 | PN ---
Progress Note (short form) - Note Progress Note: Denies any complaints Vital Signs Period Temp Pulse Resp BP Sys/Jones Pulse Ox Last 24 Hr 97.7 F-98.5 F 87-105 18-24 114-136/66-79 94-94 PE: AOx3 Neck: Supple Lungs: CTA CVS: S1S2 Abd: Benign, Ext: Leg edema with stasis changes Skin: rash improving, no erythema CMP Sodium 136 mmol/L (136-145) 05/07/17 07:35 Potassium 5.1 mmol/L (3.5-5.1) 05/07/17 07:35 Chloride 96 mmol/L (98-107) L 05/07/17 07:35 Carbon Dioxide 36 mmol/L (21-32) H 05/07/17 07:35 Anion Gap 4 (8-16) L 05/07/17 07:35 BUN 18 mg/dL (7-18) D 05/07/17 07:35 Creatinine 0.5 mg/dL (0.55-1.02) L 05/07/17 07:35 Creat Clearance w eGFR > 60 (>60) 05/05/17 05:35 POC Glucometer 94 UNITS (()) 05/04/17 06:05 Random Glucose 148 mg/dL (74-106) H D 05/07/17 07:35 Hemoglobin A1c % 7.6 % (4.8-6.0) H 04/24/17 05:15 Lactic Acid 1.0 mmol/L (0.4-2.0) 04/24/17 05:15 Calcium 8.6 mg/dL (8.5-10.1) 05/07/17 07:35 Phosphorus 4.2 mg/dL (2.5-4.9) 05/04/17 05:35 Magnesium 1.8 mg/dL (1.8-2.4) 05/04/17 05:35 Iron 15 ug/dL (27-159) L 04/27/17 05:15 TIBC 170 ug/dL (250-450) L 04/27/17 05:15 Iron Saturation 9 % (15-55) L 04/27/17 05:15 Total Bilirubin 0.7 mg/dL (0.2-1.0) D 05/05/17 05:35 AST 17 U/L (15-37) 05/05/17 05:35 ALT 21 U/L (12-78) D 05/05/17 05:35 Alkaline Phosphatase 54 U/L (45-117) 05/05/17 05:35 Creatine Kinase 24 IU/L (26-192) L 04/30/17 05:15 Creatine Kinase Index 0.8 % (0.0-5.0) 04/23/17 11:40 CK-MB (CK-2) 1.225 ng/ml (0.5-3.6) 04/23/17 11:40 Troponin I < 0.02 ng/ml (0.00-0.05) 04/26/17 05:20 B-Natriuretic Peptide Cancelled 04/26/17 06:00 Total Protein 7.1 g/dl (6.4-8.2) 05/05/17 05:35 Albumin 2.2 g/dl (3.4-5.0) L 05/05/17 05:35 TSH 1.90 uIU/ml (0.358-3.74) 04/30/17 12:00 Cortisol AM Sample 4.7 ug/dL (.) 05/02/17 05:30 Current Medications Generic Name Dose Route Start Last Admin Trade Name Freq PRN Reason Stop Dose Admin Acetaminophen 650 mg 05/05/17 11:43 05/07/17 10:20 Tylenol Oral Solution - PO 650 mg Q6H PRN Administration FEVER OR PAIN Albuterol/Ipratropium 1 amp 05/05/17 12:00 05/08/17 06:40 Duoneb - NEB 1 amp QIDR [facility] Administration Ascorbic Acid 500 mg 05/06/17 10:00 05/08/17 09:08 Vitamin C - PO 500 mg DAILY [facility] Administration Diphenhydramine HCl 25 mg 05/06/17 14:38 05/07/17 21:44 Benadryl - PO 25 mg Q8H PRN Administration FOR ITCHING Docusate Sodium 100 mg 05/05/17 14:00 05/08/17 06:02 Colace - PO 100 mg TID [facility] Administration Emollient Ointment 1 applic 05/07/17 22:00 05/07/17 21:16 Aquaphor - TP 1 applic BID [facility] Administration Ferrous Sulfate 325 mg 05/05/17 12:00 05/08/17 09:08 Feosol - PO 325 mg TIDCM [facility] Administration Furosemide 20 mg 05/06/17 10:00 05/08/17 09:08 Lasix - PO 20 mg DAILY [facility] Administration Guaifenesin 10 ml 05/05/17 11:43 Diabetic Tussin Dm - PO Q4H PRN COUGH Lidocaine HCl 10 applic 05/05/17 11:43 Xylocaine 2% Jelly TP ONCE PRN PAIN Ondansetron HCl 4 mg 05/05/17 11:43 Zofran Injection IVPUSH Q6H PRN NAUSEA AND/OR VOMITING Oxycodone HCl 5 mg 05/07/17 13:10 05/08/17 07:12 Roxicodone - PO 5 mg Q6H PRN Administration PAIN Prednisone 80 mg 05/09/17 10:00 Deltasone - PO 05/09/17 10:01 ONCE ONE Simethicone 80 mg 05/06/17 14:37 Mylicon - PO QID PRN GAS Triamcinolone Acetonide 1 applic 05/05/17 22:00 05/07/17 21:15 Aristocort 0.1% Ointment - TP 1 applic BID [facility] Administration Warfarin Sodium 10 mg 05/05/17 18:00 05/07/17 18:33 Coumadin - PO 10 mg DAILY@1800 [facility] Administration AP: Desquamating rash improving Sepsis Left Adrenal Incidentaloma Morbid obesity R/O PE W/U for adrenal incidentaloma done during admission in showed normal plasma catecholamines which rules out pheochromocytoma 1mg Dexa suppression test this admission showed Cortisol of 4.7. Pt needs 24 hour urine for cortisol which can be done while she is in rehab. Discussed with pt. Will need to repeat CT abdomen to rule out any change in size of the adrenal mass. Pt however has not been able to get CT scans as she could not fit into the CT scanner. Will f/u
[2017-05-08 11:48] LABS: ANISOCYTOSIS 2+; HYPOCHROMIA 2+; MICROCYTOSIS 2+; TARGET CELLS 1+
[2017-05-08] MEDS: MINERAL OIL/PET HY-PHL TOPICAL OINTMENT 454 GM JAR TP SCH ×2 (12:52→22:44)
[2017-05-08] MEDS: TRIAMCINOLONE ACET 0.1% OINT 80 GM TUBE TP SCH ×2 (12:57→22:44)
--- NOTE | 2017-05-08 14:21 | PN ---
Progress Note, Physician History of Present Illness: PULMONARY ALERT,NAD,-TACHYPNEA. - Current Medication List Current Medications: Active Medications Acetaminophen (Tylenol Oral Solution -) 650 mg PO Q6H PRN PRN Reason: FEVER OR PAIN Last Admin: 05/07/17 10:20 Dose: 650 mg Albuterol/Ipratropium (Duoneb -) 1 amp NEB QIDR [facility] Last Admin: 05/08/17 11:08 Dose: 1 amp Ascorbic Acid (Vitamin C -) 500 mg PO DAILY [facility] Last Admin: 05/08/17 09:08 Dose: 500 mg Diphenhydramine HCl (Benadryl -) 25 mg PO Q8H PRN PRN Reason: FOR ITCHING Last Admin: 05/07/17 21:44 Dose: 25 mg Docusate Sodium (Colace -) 100 mg PO TID [facility] Last Admin: 05/08/17 06:02 Dose: 100 mg Emollient Ointment (Aquaphor -) 1 applic TP BID [facility] Last Admin: 05/08/17 12:52 Dose: 1 applic Ferrous Sulfate (Feosol -) 325 mg PO TIDCM [facility] Last Admin: 05/08/17 12:52 Dose: 325 mg Furosemide (Lasix -) 20 mg PO DAILY [facility] Last Admin: 05/08/17 09:08 Dose: 20 mg Guaifenesin (Diabetic Tussin Dm -) 10 ml PO Q4H PRN PRN Reason: COUGH Lidocaine HCl (Xylocaine 2% Jelly) 10 applic TP ONCE PRN PRN Reason: PAIN Ondansetron HCl (Zofran Injection) 4 mg IVPUSH Q6H PRN PRN Reason: NAUSEA AND/OR VOMITING Oxycodone HCl (Roxicodone -) 5 mg PO Q6H PRN PRN Reason: PAIN Last Admin: 05/08/17 07:12 Dose: 5 mg Prednisone (Deltasone -) 80 mg PO ONCE ONE Stop: 05/09/17 10:01 Simethicone (Mylicon -) 80 mg PO QID PRN PRN Reason: GAS Triamcinolone Acetonide (Aristocort 0.1% Ointment -) 1 applic TP BID [facility] Last Admin: 05/08/17 12:57 Dose: 1 applic Warfarin Sodium (Coumadin -) 10 mg PO DAILY@1800 [facility] Last Admin: 05/07/17 18:33 Dose: 10 mg - Objective Vital Signs: Vital Signs Temperature 97.7 F 05/08/17 10:00 Pulse Rate 82 05/08/17 11:07 Respiratory Rate 20 05/08/17 10:00 Blood Pressure 120/92 05/08/17 10:00 O2 Sat by Pulse Oximetry (%) 96 05/08/17 11:07 Constitutional: Yes: Calm, Obese Eyes: Yes: WNL HENT: Yes: WNL, Tonsillar Exudate Cardiovascular: Yes: Regular Rate and Rhythm, S1, S2 Respiratory: Yes: Wheezes (FEW SCATTERED WHEEZES) Gastrointestinal: Yes: Normal Bowel Sounds, Soft Extremities: Yes: WNL Edema: Yes Labs: CBC, BMP 05/08/17 08:00 05/07/17 07:35 INR, PTT INR 1.98 (0.82-1.09) H 05/08/17 08:00 Assessment/Plan Problem List - Problems (1) Cellulitis Code(s): L03.90 - CELLULITIS, UNSPECIFIED Qualifiers: Site of cellulitis: unspecified site Qualified Code(s): L03.90 - Cellulitis, unspecified (2) Desquamated skin Code(s): R23.4 - CHANGES IN SKIN TEXTURE (3) Sepsis Code(s): A41.9 - SEPSIS, UNSPECIFIED ORGANISM Qualifiers: Sepsis type: sepsis due to unspecified organism Qualified Code(s): A41.9 - Sepsis, unspecified organism (4) Drug-induced skin rash Code(s): L27.0 - GEN SKIN ERUPTION DUE TO DRUGS AND MEDS TAKEN INTERNALLY Assessment/Plan -Continue diureses -AC -abx course as per ID -O2 as needed to maintain sat 90% -BD TX PRN -Sleep study as outpatient - DC steroids DR DOMÍNGUEZ
--- NOTE | 2017-05-08 14:57 | PN ---
Progress Note, Physician History of Present Illness: stable no new issues doing well - Current Medication List Current Medications: Active Medications Acetaminophen (Tylenol Oral Solution -) 650 mg PO Q6H PRN PRN Reason: FEVER OR PAIN Last Admin: 05/07/17 10:20 Dose: 650 mg Albuterol/Ipratropium (Duoneb -) 1 amp NEB QIDR [facility] Last Admin: 05/08/17 11:08 Dose: 1 amp Ascorbic Acid (Vitamin C -) 500 mg PO DAILY [facility] Last Admin: 05/08/17 09:08 Dose: 500 mg Diphenhydramine HCl (Benadryl -) 25 mg PO Q8H PRN PRN Reason: FOR ITCHING Last Admin: 05/07/17 21:44 Dose: 25 mg Docusate Sodium (Colace -) 100 mg PO TID [facility] Last Admin: 05/08/17 14:39 Dose: 100 mg Emollient Ointment (Aquaphor -) 1 applic TP BID [facility] Last Admin: 05/08/17 12:52 Dose: 1 applic Ferrous Sulfate (Feosol -) 325 mg PO TIDCM [facility] Last Admin: 05/08/17 12:52 Dose: 325 mg Furosemide (Lasix -) 20 mg PO DAILY [facility] Last Admin: 05/08/17 09:08 Dose: 20 mg Guaifenesin (Diabetic Tussin Dm -) 10 ml PO Q4H PRN PRN Reason: COUGH Lidocaine HCl (Xylocaine 2% Jelly) 10 applic TP ONCE PRN PRN Reason: PAIN Ondansetron HCl (Zofran Injection) 4 mg IVPUSH Q6H PRN PRN Reason: NAUSEA AND/OR VOMITING Oxycodone HCl (Roxicodone -) 5 mg PO Q6H PRN PRN Reason: PAIN Last Admin: 05/08/17 14:38 Dose: 5 mg Prednisone (Deltasone -) 80 mg PO ONCE ONE Stop: 05/09/17 10:01 Simethicone (Mylicon -) 80 mg PO QID PRN PRN Reason: GAS Triamcinolone Acetonide (Aristocort 0.1% Ointment -) 1 applic TP BID [facility] Last Admin: 05/08/17 12:57 Dose: 1 applic Warfarin Sodium (Coumadin -) 10 mg PO DAILY@1800 [facility] Last Admin: 05/07/17 18:33 Dose: 10 mg - Objective Vital Signs: Vital Signs Temperature 97.7 F 05/08/17 10:00 Pulse Rate 82 05/08/17 11:07 Respiratory Rate 20 05/08/17 10:00 Blood Pressure 120/92 05/08/17 10:00 O2 Sat by Pulse Oximetry (%) 96 05/08/17 11:07 Constitutional: Yes: No Distress, Calm, Obese Cardiovascular: Yes: Regular Rate and Rhythm Respiratory: Yes: Regular, Poor Air Entry Gastrointestinal: Yes: Normal Bowel Sounds, Soft Musculoskeletal: Yes: Other Extremities: Yes: Other Edema: LLE: 1+, RLE: 1+ Neurological: Yes: Alert, Oriented Psychiatric: Yes: Alert, Oriented Labs: CBC, BMP 05/08/17 08:00 05/07/17 07:35 INR, PTT INR 1.98 (0.82-1.09) H 05/08/17 08:00 Assessment/Plan - Problems (1) Cellulitis Code(s): L03.90 - CELLULITIS, UNSPECIFIED Qualifiers: Site of cellulitis: unspecified site Qualified Code(s): L03.90 - Cellulitis, unspecified (2) Desquamated skin Code(s): R23.4 - CHANGES IN SKIN TEXTURE (3) Sepsis Code(s): A41.9 - SEPSIS, UNSPECIFIED ORGANISM Qualifiers: Sepsis type: sepsis due to unspecified organism Qualified Code(s): A41.9 - Sepsis, unspecified organism (4) generalized rash 5 abd wall cellulitis morbid obesity sepsis septic shock gm positive bateremia plan continue to monitor off of abx rest ct as per primary team pul physio if possible
--- NOTE | 2017-05-08 17:32 | PN ---
Physical Exam: SUBJECTIVE: Patient seen and examined. Many concerns verbalized, health problems discussed at length. present. OBJECTIVE: Vital Signs Period Temp Pulse Resp BP Sys/Jones Pulse Ox Last 24 Hr 97.7 F-98.4 F 82-98 18-22 120-149/72-92 94-96 GENERAL: The patient is awake, alert, and fully oriented, in no acute distress. HEAD: Normal with no signs of trauma. EYES: PERRL, extraocular movements intact, sclera anicteric, conjunctiva clear. No ptosis. LUNGS: Anterior breath sounds equal, clear to auscultation bilaterally, no wheezes, no crackles, no accessory muscle use. HEART: Regular rate and rhythm, S1, S2 without murmur, rub or gallop. ABDOMEN: Morbidly obese, multiple folds; discovered 3 sutures which patient states was from a surgical procedure at [facility] in December 2016; sutures removed, wound clean, no sign of infection; larose catheter disconnected from larose bag EXTREMITIES: 2+ pulses, warm, well-perfused, no edema. NEUROLOGICAL: Cranial nerves II through XII grossly intact. Normal speech, gait not observed. SKIN: Warm, dry, normal turgor, no rashes Laboratory Results - last 24 hr 05/07/17 05/08/17 05/08/17 18:45 08:00 08:00 WBC 10.8 H RBC 4.68 Hgb 9.7 L Hct 32.8 MCV 70.0 L MCH 20.7 L MCHC 29.5 L RDW 25.1 H Plt Count 253 MPV 9.1 Neutrophils % Lymphocytes % Monocytes % Eosinophils % Basophils % Hypochromic-Microcytic Anisocytosis Microcytosis Target Cells INR PTT (Actin FS) 83.9 H 126.3 H D 05/08/17 05/08/17 08:00 08:00 WBC 10.9 H RBC 4.70 Hgb 9.7 L Hct 32.8 MCV 69.7 L MCH 20.6 L MCHC 29.5 L RDW 24.7 H Plt Count 255 MPV 8.8 Neutrophils % 83.9 H Lymphocytes % 10.9 Monocytes % 5.1 Eosinophils % 0.0 D Basophils % 0.1 Hypochromic-Microcytic 2+ Anisocytosis 2+ Microcytosis 2+ Target Cells 1+ INR 1.98 H PTT (Actin FS) Active Medications Generic Name Dose Route Start Last Admin Trade Name Freq PRN Reason Stop Dose Admin Acetaminophen 650 mg 05/05/17 11:43 05/07/17 10:20 Tylenol Oral Solution - PO 650 mg Q6H PRN Administration FEVER OR PAIN Albuterol/Ipratropium 1 amp 05/05/17 12:00 05/08/17 11:08 Duoneb - NEB 1 amp QIDR [facility] Administration Ascorbic Acid 500 mg 05/06/17 10:00 05/08/17 09:08 Vitamin C - PO 500 mg DAILY [facility] Administration Diphenhydramine HCl 25 mg 05/06/17 14:38 05/07/17 21:44 Benadryl - PO 25 mg Q8H PRN Administration FOR ITCHING Docusate Sodium 100 mg 05/05/17 14:00 05/08/17 14:39 Colace - PO 100 mg TID [facility] Administration Emollient Ointment 1 applic 05/07/17 22:00 05/08/17 12:52 Aquaphor - TP 1 applic BID [facility] Administration Ferrous Sulfate 325 mg 05/05/17 12:00 05/08/17 12:52 Feosol - PO 325 mg TIDCM [facility] Administration Furosemide 20 mg 05/06/17 10:00 05/08/17 09:08 Lasix - PO 20 mg DAILY [facility] Administration Guaifenesin 10 ml 05/05/17 11:43 Diabetic Tussin Dm - PO Q4H PRN COUGH Lidocaine HCl 10 applic 05/05/17 11:43 Xylocaine 2% Jelly TP ONCE PRN PAIN Ondansetron HCl 4 mg 05/05/17 11:43 Zofran Injection IVPUSH Q6H PRN NAUSEA AND/OR VOMITING Oxycodone HCl 5 mg 05/07/17 13:10 05/08/17 14:38 Roxicodone - PO 5 mg Q6H PRN Administration PAIN Prednisone 80 mg 05/09/17 10:00 Deltasone - PO 05/09/17 10:01 ONCE ONE Simethicone 80 mg 05/06/17 14:37 Mylicon - PO QID PRN GAS Triamcinolone Acetonide 1 applic 05/05/17 22:00 05/08/17 12:57 Aristocort 0.1% Ointment - TP 1 applic BID [facility] Administration Warfarin Sodium 10 mg 05/05/17 18:00 05/07/17 18:33 Coumadin - PO 10 mg DAILY@1800 [facility] Administration ASSESSMENT/PLAN 61 year-old female with PMH of HTN, asthma, uterine fibroids, and morbid obesity. Admitted for septic shock secondary to psoriasform rash. 1) ID: Septic shock 2/2 probable skin source - Improving - Continue Meropenem per ID - Clindamycin discontinued yesterday - Appreciate ID consult 2) Integumentary: Rash, high eosinophilia - Improved - Skin biopsy with psoriasform - Continue Triamcinolone ointment bid x2 weeks total - Aquaphor for dry skin 3) Pulmonary: Probable pulmonary embolism, Acute hypoxic hypercapnic respiratory failure - INR therapeutic; stop heparin drip - Continue Coumadin - Daily INR Asthma - Duonebs - Robitussin prn Acute hypoxic hypercapnic respiratory failure - Continue Bipap HS 4) Diastolic CHF - Continue Lasix, monitor BMP closely 5) Iron deficiency anemia: - Continue ferrous sulfate tid - Colace tid 6) FURNACE HAND: Hx of uterine fibroids - F/u outpatient bobbin painter - No active bleeding or pain 7) F/E/N: - Monitor electrolytes - Sodium controlled/diabetic diet 8) Prophylaxis: - Heparin 5,000u sq q8h 10) Dispo: - Requires continued inpatient care CODE STATUS: FULL CODE Visit type - Emergency Visit Emergency Visit: Yes ED Registration Date: 04/23/17 Care time: The patient presented to the Emergency Department on the above date and was hospitalized for further evaluation of their emergent condition. - New Patient This patient is new to me today: Yes Date on this admission: 05/10/17 - Critical Care Critical Care patient: No
[2017-05-08] MEDS: WARFARIN NA 10 MG TABLET (FP) PO SCH (17:34)
--- NOTE | 2017-05-08 19:32 | PN ---
Progress Note, Physician - Current Medication List Current Medications: Active Medications Acetaminophen (Tylenol Oral Solution -) 650 mg PO Q6H PRN PRN Reason: FEVER OR PAIN Last Admin: 05/07/17 10:20 Dose: 650 mg Albuterol/Ipratropium (Duoneb -) 1 amp NEB QIDR [facility] Last Admin: 05/08/17 17:10 Dose: 1 amp Ascorbic Acid (Vitamin C -) 500 mg PO DAILY [facility] Last Admin: 05/08/17 09:08 Dose: 500 mg Diphenhydramine HCl (Benadryl -) 25 mg PO Q8H PRN PRN Reason: FOR ITCHING Last Admin: 05/07/17 21:44 Dose: 25 mg Docusate Sodium (Colace -) 100 mg PO TID [facility] Last Admin: 05/08/17 14:39 Dose: 100 mg Emollient Ointment (Aquaphor -) 1 applic TP BID [facility] Last Admin: 05/08/17 12:52 Dose: 1 applic Ferrous Sulfate (Feosol -) 325 mg PO TIDCM [facility] Last Admin: 05/08/17 17:34 Dose: 325 mg Furosemide (Lasix -) 20 mg PO DAILY [facility] Last Admin: 05/08/17 09:08 Dose: 20 mg Guaifenesin (Diabetic Tussin Dm -) 10 ml PO Q4H PRN PRN Reason: COUGH Lidocaine HCl (Xylocaine 2% Jelly) 10 applic TP ONCE PRN PRN Reason: PAIN Ondansetron HCl (Zofran Injection) 4 mg IVPUSH Q6H PRN PRN Reason: NAUSEA AND/OR VOMITING Oxycodone HCl (Roxicodone -) 5 mg PO Q6H PRN PRN Reason: PAIN Last Admin: 05/08/17 14:38 Dose: 5 mg Prednisone (Deltasone -) 80 mg PO ONCE ONE Stop: 05/09/17 10:01 Simethicone (Mylicon -) 80 mg PO QID PRN PRN Reason: GAS Triamcinolone Acetonide (Aristocort 0.1% Ointment -) 1 applic TP BID [facility] Last Admin: 05/08/17 12:57 Dose: 1 applic Warfarin Sodium (Coumadin -) 10 mg PO DAILY@1800 [facility] Last Admin: 05/08/17 17:34 Dose: 10 mg - Objective Vital Signs: Vital Signs Temperature 98.4 F 05/08/17 14:17 Pulse Rate 92 H 05/08/17 14:17 Respiratory Rate 22 05/08/17 14:17 Blood Pressure 149/85 05/08/17 14:17 O2 Sat by Pulse Oximetry (%) 96 05/08/17 11:07 Labs: CBC, BMP 05/08/17 08:00 05/07/17 07:35 INR, PTT INR 1.98 (0.82-1.09) H 05/08/17 08:00 Problem List - Problems (1) D-dimer, elevated Code(s): R79.89 - OTHER SPECIFIED ABNORMAL FINDINGS OF BLOOD CHEMISTRY (2) Desquamated skin Code(s): R23.4 - CHANGES IN SKIN TEXTURE (3) Microcytic anemia Code(s): D50.9 - IRON DEFICIENCY ANEMIA, UNSPECIFIED (4) Sepsis Code(s): A41.9 - SEPSIS, UNSPECIFIED ORGANISM Qualifiers: Qualified Code(s): A41.9 - Sepsis, unspecified organism (5) Asthma Code(s): J45.909 - UNSPECIFIED ASTHMA, UNCOMPLICATED Qualifiers: Qualified Code(s): J45.20 - Mild intermittent asthma, uncomplicated (6) HTN (hypertension) Code(s): I10 - ESSENTIAL (PRIMARY) HYPERTENSION (7) Morbid obesity Code(s): E66.01 - MORBID (SEVERE) OBESITY DUE TO EXCESS CALORIES (8) Hypotension Code(s): I95.9 - HYPOTENSION, UNSPECIFIED (9) Acute on chronic diastolic CHF (congestive heart failure) Code(s): I50.33 - ACUTE ON CHRONIC DIASTOLIC (CONGESTIVE) HEART FAILURE (10) Hypoalbuminemia Code(s): E88.09 - [facility] DISORDERS OF PLASMA-PROTEIN METABOLISM, NEC
[2017-05-09] MEDS: DOCUSATE SODIUM 100 MG CAPSULE (FP) PO SCH (05:25)
[2017-05-09] MEDS: ALBUTEROL SO4 2.5/IPRATROPIUM 0.5 INH SOL 3 ML VIAL.NEB. NEB SCH ×2 (06:56→11:01)
[2017-05-09 07:29] LABS: MCH 20.4 pg (25.7-33.7); MCHC 29.1 g/dl (32.0-36.0); MEAN CELL VOLUME 70.1 fl (80-96); MEAN PLT VOLUME 9.2 fl (7.5-11.1); PLATELET COUNT 284 K/MM3 (134-434); RDW 25.3 % (11.6-15.6); WHITE BLOOD COUNT 13.5 K/mm3 (4.0-10.0)
[2017-05-09] MEDS: FERROUS SO4 325 MG TABLET (FP) PO SCH (08:17)
[2017-05-09] MEDS ORDERED: PT OWN MED DRAWER 7, Y5N ONE (09:01)
[2017-05-09] MEDS: ASCORBIC ACID 500 MG TABLET (FP) PO SCH (09:08)
[2017-05-09] MEDS: FUROSEMIDE 20 MG TABLET (FP) PO SCH (09:08)
[2017-05-09] MEDS: MINERAL OIL/PET HY-PHL TOPICAL OINTMENT 454 GM JAR TP SCH (09:12)
[2017-05-09] MEDS: TRIAMCINOLONE ACET 0.1% OINT 80 GM TUBE TP SCH (09:12)
[2017-05-09 09:33] VITALS: BP 123/58; TEMP 98.1
[2017-05-09] MEDS ORDERED: predniSONE 20 MG TABLET (UD) PO ONE (10:00)
[2017-05-09 11:01] VITALS: PULSE 88
--- NOTE | 2017-05-09 11:15 | DS ---
Physical Exam: SUBJECTIVE: Patient seen and examined. Anxious about being discharged. Addressed all questions and concerns. No specific complaints. OBJECTIVE: Vital Signs Period Temp Pulse Resp BP Sys/Jones Pulse Ox Last 24 Hr 98.1 F-98.6 F 57-103 16-22 101-149/58-85 97-99 PHYSICAL EXAM GENERAL: The patient is awake, alert, and fully oriented, in no acute distress. HEAD: Normal with no signs of trauma. EYES: PERRL, extraocular movements intact, sclera anicteric, conjunctiva clear. No ptosis. LUNGS: Anterior breath sounds equal, clear to auscultation bilaterally, no wheezes, no crackles, no accessory muscle use. HEART: Regular rate and rhythm, S1, S2 without murmur, rub or gallop. ABDOMEN: Morbidly obese, multiple folds; suture site c/d/i : voiding freely EXTREMITIES: 2+ pulses, warm, well-perfused, no edema. NEUROLOGICAL: Cranial nerves II through XII grossly intact. Normal speech, gait not observed. SKIN: Warm, dry, normal turgor, no rashes LABS Laboratory Results - last 24 hr 05/08/17 05/09/17 05/09/17 08:00 06:15 06:15 WBC 10.9 H 13.5 H RBC 4.70 4.83 Hgb 9.7 L 9.9 L Hct 32.8 33.9 MCV 69.7 L 70.1 L MCH 20.6 L 20.4 L MCHC 29.5 L 29.1 L RDW 24.7 H 25.3 H Plt Count 255 284 MPV 8.8 9.2 Neutrophils % 83.9 H Lymphocytes % 10.9 Monocytes % 5.1 Eosinophils % 0.0 D Basophils % 0.1 Hypochromic-Microcytic 2+ Anisocytosis 2+ Microcytosis 2+ Target Cells 1+ PTT (Actin FS) 38.7 H D HOSPITAL COURSE: Date of Admission:04/23/17 Date of Discharge: 05/09/17 61 year-old female with PMH of HTN, asthma, uterine fibroids, and morbid obesity. Admitted for septic shock secondary to psoriasform rash. 1) ID: Septic shock 2/2 probable skin source -resolved 2) Integumentary: Rash, high eosinophilia - resolved - Skin biopsy with psoriasform - Continue Triamcinolone ointment bid x2 weeks total - Aquaphor for dry skin 3) Pulmonary: Probable pulmonary embolism, Acute hypoxic hypercapnic respiratory failure - INR therapeutic; stop heparin drip - Continue Coumadin - INR goal 2-3 -will need outpatient followup to determine length of anticoagulation Asthma - Duonebs - Robitussin prn Acute hypoxic hypercapnic respiratory failure - Continue Bipap HS 4) Diastolic CHF - Continue Lasix, monitor BMP closely 5) Iron deficiency anemia: - Continue ferrous sulfate tid - Colace tid 6) STAPLER HAND: Hx of uterine fibroids - F/u outpatient art psychotherapist - No active bleeding or pain Minutes to complete discharge: 45 Discharge Summary Reason For Visit: CELLULITIS,SEPSIS Current Active Problems Acute on chronic diastolic CHF (congestive heart failure) (Acute) Cellulitis (Acute) Congestive heart disease (Acute) D-dimer, elevated (Acute) Desquamated skin (Acute) Hypoalbuminemia (Acute) Hypotension (Acute) Microcytic anemia (Acute) Sepsis (Acute) Severe sepsis (Acute) Condition: Improved - Instructions Diet, Activity, Other Instructions: Patient is being discharged on a slow prednisone taper. See orders. Patient is being discharged on coumadin. There is a strong suspicion that she has a pulmonary embolism, but we could not scan her because of her body habitus. She was started on a heparin drip and bridged to coumadin. Keep her INR between 2 and 3. Patient will need followup with Dr. Hoffman, a pulmonoloigst , regarding long-term anti-coagulation. She should also follow up with Dr. Hoffman for a sleep study. Patient should use BIPAP at night if she can tolerate it. Patient also needs to follow up with Dr. Coco Brennan for an adrenal mass that requires imaging. Again, patient will need to be taking to an imaging center that can accommodate her size. Please call if you have any questions. Nasima Hernandez, [facility]- [phone] Referrals: [facility] [Outside] Palomo Hoffman MD [Staff Physician] - Cindy Marlow MD [Primary Care Provider] - Anu Vanegas MD [Staff Physician] - Disposition: RESIDENTIAL FACILITY - Home Medications Comprehensive Discharge Medication List: Ambulatory Orders Acetaminophen [Tylenol] 975 mg PO Q6H PRN 02/22/16 Albuterol 2.5/Ipratropium 0.5 [Duoneb -] 1 neb NEB Q6H 02/22/16 Fluticasone/Salmeterol [Advair 250-50 Diskus] 1 each IH BID 02/22/16 Gabapentin [Neurontin] 300 mg PO Q8H 02/22/16 Mag Hydrox/Al Hydrox/Simeth [Mylanta Oral Suspension -] 30 ml PO Q6H PRN Pantoprazole Sodium [Protonix] 40 mg PO DAILY 02/22/16 Polyvinyl Alcohol [Artificial Tears] 15 ml OD BID 02/22/16 Lisinopril [Prinivil] 20 mg PO BID tablet 02/29/16 Nystatin Ointment [Mycostatin Ointment -] 1 applic TP BID applic 02/29/16 Nystatin Powder [Nystop Powder -] 1 applic TP DAILY applic 02/29/16 Vitamin A & D Top Oint - 1 applic TP BID tube 02/29/16 Diphenhydramine HCl [Benadryl Capsule -] 25 mg PO Q8H PRN #90 cap 05/08/17 Docusate Sodium [Colace -] 100 mg PO TID #90 cap 05/08/17 Ferrous Sulfate [Feosol] 325 mg PO TIDCM #90 cap 05/08/17 Furosemide [Lasix -] 20 mg PO DAILY tablet 05/08/17 Mineral Oil/Pet Hy-Phl [Aquaphor -] 1 applic TP TID #1 jar 05/08/17 Prednisone 10 mg PO ASDIR #14 tablet 05/08/17 Simethicone [Mylicon -] 80 mg PO QID PRN #0 tab.chew 05/08/17 Triamcinolone 0.1% Ointment [Aristocort 0.1% Ointment -] 1 applic TP BID #1 tube 05/08/17 Warfarin Na [Coumadin -] 10 mg PO DAILY@1800 tablet 05/08/17 This patient is new to me today: No Emergency Visit: Yes ED Registration Date: 04/23/17 Care time: The patient presented to the Emergency Department on the above date and was hospitalized for further evaluation of their emergent condition. Critical Care patient: No - Discharge Referral Referred to [facility] Yes Physician Referral: Salvador Gamez MD ([facility])
--- NOTE | 2017-05-09 11:15 | HOSP ---
Subjective - Review of Symptoms Events since last encounter: LIJ triple lumen catheter removed. Held pressure for 10 minutes, no active bleeding. Wound dressed with sterile gauze, secured with tape. Patient tolerated well. Physical Examination Vital Signs: Vital Signs Temperature 98.1 F 05/09/17 09:10 Pulse Rate 88 05/09/17 11:00 Respiratory Rate 18 05/09/17 09:10 Blood Pressure 123/58 05/09/17 09:10 O2 Sat by Pulse Oximetry (%) 97 05/09/17 11:00 Labs: CBC, BMP 05/09/17 06:15 05/07/17 07:35
== END 2017-05-09 12:02 | DRG 871 ==
LOC: JER 10:35 → JERBED 14:37 → JICU 19:05 → J4W 05-03 17:06 → J5S 05-05 11:26
PROVIDERS: ADMIT Internal Medicine; ATTEND Nurse Practitioner Acute Care
PROC: 05HN33Z Insertion of Infusion Device into Left Internal Jugular Vein, Percutaneous Approach (ICD-10-PCS; principal; 2017-04-25)
DX: A41.9 Sepsis, unspecified organism (principal); R65.21 Severe sepsis with septic shock; J96.01 Acute respiratory failure with hypoxia; J96.02 Acute respiratory failure with hypercapnia; I50.33 Acute on chronic diastolic (congestive) heart failure; Z68.44 Body mass index [BMI] 60.0-69.9, adult; L03.311 Cellulitis of abdominal wall; E87.3 Alkalosis; J45.909 Unspecified asthma, uncomplicated; D50.9 Iron deficiency anemia, unspecified; E66.01 Morbid (severe) obesity due to excess calories; L27.0 Generalized skin eruption due to drugs and medicaments taken internally; Z87.891 Personal history of nicotine dependence; E87.5 Hyperkalemia; I95.9 Hypotension, unspecified; E88.09 Other disorders of plasma-protein metabolism, not elsewhere classified
CPT/HCPCS: 36415; 36600; 71010-TC; 80048; 80053; 81003; 81015; 82272; 82533; 82550; 82553; 82803; 83021; 83036; 83540; 83550; 83605; 83735; 83880; 84100; 84443; 84484; 85025; 85027; 85044; 85379; 85520; 85610; 85660; 85730; 86850; 86900; 86901; 87040; 87086; 87186; 93005; 93010; 93306-TC; 93970-TC; 94640; 94660; 97116-GP; 97161-GP; 99283-25; G0480; J1644

== ENCOUNTER 2018-10-07 07:18 | Inpatient (IN) | payer OTHER ==
[2018-10-07] MEDS ORDERED: ACETAMINOPHEN 1000 MG/100 ML VIAL (NON FORMULARY) IVPB ONE (07:26)
--- NOTE | 2018-10-07 07:27 | PDOC ---
Attending Attestation - HPI HPI: 10/07/18 09:38 The patient is a 63 year old female, with a significant PMH of hypertension, asthma, diastolic CHF, GERD, prior lower extremity DVT, morbid obesity, DM, anemia, abdominal fibroids, who presents to the emergency department with altered mental status. As per , the patient was noted to be fading in/ out of conversation yesterday. He states he called EMS this morning as the patient was unresponsive. He also states the patient has had malodorous urine for several days. As per EMS, patient blood sugar was in the 300s while en route to the ER. Allergies: piperacillin sodium, tazobactam sodium Documentation prepared by Oneil Miller, acting as medical language specialist for Kristopher Mena MD. <Oneil Miller - Last Filed: 10/07/18 09:38> - Resident Resident Name: Manoj Humphrey - ED Attending Attestation I have performed the following: I have examined & evaluated the patient, The case was reviewed & discussed with the resident, I agree w/resident's findings & plan, Exceptions are as noted - Physicial Exam PE: 10/07/18 11:15 Vitals: Triage Vital signs reviewed General Appearance: no acute distress, well nourished well developed, Head: Atraumatic, Lethargic Neck: Supple;No Nucal rigidity Chest Wall: Nontender Cardiac: Regular rate and rhythym, Lungs: decreased BS BL Abdomen: Soft, non distended, normal bowel sounds, non tender to palpation Extremities: Full range of motion to all extremities, no cyanosis, clubbing, or edema Skin: Warm and dry, fungal rash to perineum buttock and back Neuro: Obtunded globally - Critical Care Time Total Critical Care Time: 75 Critical Care Statement: The care of this patient involved high complexity decision making to prevent further life threatening deterioration of the patient 's condition and/or to evaluate & treat vital organ system(s) failure or risk of failure. - Medical Decision Making 10/07/18 11:16 The patient is a 63 year old female, with a significant PMH of hypertension, asthma, diastolic CHF, GERD, prior lower extremity DVT, morbid obesity, DM, anemia, abdominal fibroids, who presents to the emergency department with altered mental status. As per , the patient was noted to be fading in/ out of conversation yesterday. He states he called EMS this morning as the patient was unresponsive. He also states the patient has had malodorous urine for several days. As per EMS, patient blood sugar was in the 300s while en route to the ER. Patient presents lethargic obtunded morbidly obese febrile borderline O2 sat Sepsis workup initiated broad-spectrum antibiotics ordered patient placed on BiPAP wi initial ABG notable for hypercapnic respiratory failure BiPAP settings increased repeat ABG performed with no notable improvement Decision made with family present at bedside to intubate patient Patient intubated successfully small amount of emesis noted in oropharynx suctioned Chest x-ray tube adequately positioned above the rich Interpreted by me. At this point we'll admit to ICU for sepsis possibly respiratory possibly skin related exam for broad-spectrum antibiotics and further management <Kristopher Mena - Last Filed: 10/07/18 11:20> Heart Score/ECG Review - ECG Impressions Comment:: 10/07/18 11:15 EKG performed at 734 Sinus tachycardia 120 bpm with left axis deviation. No ST elevations. Incomplete right bundle-branch block. Interpreted by me. <Kristopher Mena - Last Filed: 10/07/18 11:20>
--- NOTE | 2018-10-07 07:34 | PDOC ---
History of Present Illness - General Stated Complaint: UNRESPONSIVE Time Seen by Provider: 10/07/18 07:26 - History of Present Illness Initial Comments: 10/07/18 07:34 Ms. Robles is a 63 yo female w/ pmh of HTN, asthma, diastolic CHF, GERD, prior lower extremity DVT, morbid obesity, DM, anemia, abdominal fibroid, BIBA for evaluation of 1 day history of altered mental status. Patient is reportedly typically alert and responsive and able to hold a full conversation. Starting yesterday patient was "fading in and out" while talking with . called EMS this morning as she is now unresponsive. Patient has also had foul smelling urine for several days and wonders if she has a UTI. Patient reportedly was recently discharged from [facility] approximately 2 weeks ago. Unclear reason for admission there at this time. BGM by EMS while en route in 300's. Past History - Past Medical History Allergies/Adverse Reactions: Allergies Allergy/AdvReac Type Severity Reaction Status Date / Time piperacillin sodium Allergy Rash Verified 04/23/17 10:50 [From Zosyn] tazobactam sodium Allergy Rash Verified 04/23/17 10:50 [From Zosyn] Home Medications: Ambulatory Orders Acetaminophen [Tylenol] 650 mg PO BID 02/22/16 Albuterol 2.5/Ipratropium 0.5 [Duoneb -] 1 neb NEB Q6H 02/22/16 Fluticasone/Salmeterol [Advair 250-50 Diskus] 1 each IH BID 02/22/16 Gabapentin [Neurontin] 300 mg PO Q8H 02/22/16 Alcohol Antiseptic Pads [Alcohol Prep Pads] 10/07/18 Calcium Carbonate [Calcium] 500 mg PO BID 10/07/18 Insulin Aspart [Novolog] 10 unit SQ TID 10/07/18 Insulin Aspart [Novolog] 100 unit SQ TID 10/07/18 Losartan Potassium 25 mg PO DAILY 10/07/18 Mineral Oil/Hydrophil Petrolat [Aquaphor Healing Ointment] 10/07/18 Prednisone 2.5 mg PO DAILY 10/07/18 Ranitidine HCl 150 mg PO BID 10/07/18 Sennosides [Senna] 8.6 mg PO BID 10/07/18 Asthma: Yes (INTUBATION: 08/2015) Cardiac Disorders: Yes Diabetes: No GI Disorders: Yes (ventral hernia. OBESITY.) HTN: Yes - Surgical History Abdominal Surgery: Yes (s/p ventral hernia repair w/ mesh 01/13/13) Orthopedic Surgery: Yes (R. leg) - Suicide/Smoking/Psychosocial Hx Smoking Status: No Smoking History: Former smoker Have you smoked in the past 12 months: No Number of Cigarettes Smoked Daily: 0 If you are a former smoker, when did you quit?: 1979 Hx Alcohol Use: No Drug/Substance Use Hx: No Substance Use Type: None Hx Substance Use Treatment: No Review of Systems - Review of Systems Comments:: 10/07/18 07:44 Unable to obtain further. *Physical Exam - Physical Exam Comments: 10/07/18 07:44 GENERAL: +Morbid obesity, patient obtunded at presentation. HEAD: No signs of trauma, normocephalic, atraumatic EYES: PERRLA, EOMI, sclera anicteric, conjunctiva clear ENT: Auricles normal inspection, hearing grossly normal, nares patent, oropharynx clear without exudates. Moist mucosa NECK: Normal ROM, supple, no lymphadenopathy, JVD, or masses LUNGS: +Exam limited by body habitus. Unable to appreciate crackles/rales. Breath sounds distant. HEART: Regular rate and rhythm, normal S1 and S2, no murmurs, rubs or gallops, peripheral pulses normal and equal bilaterally. ABDOMEN: Soft, nontender, normoactive bowel sounds. No guarding, no rebound. No masses EXTREMITIES: Normal inspection, Normal range of motion, no edema. No clubbing or cyanosis. NEUROLOGICAL: +Unable to assess. SKIN: +Florid sacral dry skin noted to slough off when rolling. No sacral ulcers. Warm, Dry, normal turgor, no rashes or lesions noted. Procedures - Intubation Time of Intubation: 10:49 Intubation Method: orotracheal Blade used: Glidescope Tube Size (Fr): 7.5 Medications: Etomidate, Succinylcholine Tube position @ lip (cm): 20 Tube position confirmed by: Direct visualization, CO2 detector, Chest x-ray, Breath sounds Breath Sounds after Intubation: equal Intubation Complications: no complications Post Intubation Xray: Yes ED Treatment Course - LABORATORY CBC & Chemistry Diagram: 10/07/18 08:30 10/07/18 08:30 Medical Decision Making - Medical Decision Making 10/07/18 10:23 Ms. Robles is a 63 yo female w/ pmh as described who presents for evaluation of respiratory difficulty. Patient placed on bipap upon arrival with sepsis workup started. Vancomycin and ertapenem started after blood / urine obtained. 10/07/18 10:53 Patient ABG not improved on BiPAP. Patient intubated with 's consent. Will admit to ICU. Laboratory Results - last 24 hr 10/07/18 10/07/18 10/07/18 08:25 08:25 08:30 WBC 19.7 H RBC 4.61 Hgb 10.0 L Hct 34.2 MCV 74.1 L MCH 21.6 L MCHC 29.2 L RDW 21.4 H Plt Count 323 MPV 9.3 Absolute Neuts (auto) 13.8 H Neutrophils % 75.8 Lymphocytes % 12.9 Monocytes % 9.0 Eosinophils % 1.2 D Basophils % 1.1 D Nucleated RBC % 3 H Hypochromia 1+ Platelet Estimate Normal Polychromasia 2+ Poikilocytosis 1+ Anisocytosis 1+ Microcytosis 1+ Macrocytosis 0 Tear Drop Cells 1+ PT with INR INR PTT (Actin FS) Puncture Site ABG pH ABG pCO2 at Pt Temp ABG pO2 at Pt Temp ABG HCO3 ABG O2 Sat (Measured) ABG O2 Content ABG Base Excess Gama Test VBG pH 7.18 L* POC VBG pCO2 92.0 H* D POC VBG pO2 32.7 D Mixed VBG HCO3 32.8 H Carboxyhemoglobin Methemoglobin Oxygen Flow Rate Sodium Potassium Chloride Carbon Dioxide Anion Gap BUN Creatinine Creat Clearance w eGFR Random Glucose Lactic Acid Calcium Total Bilirubin AST ALT Alkaline Phosphatase Creatine Kinase Creatine Kinase Index CK-MB (CK-2) Troponin I Total Protein Albumin Urine Color Amanda Urine Appearance Cloudy Urine pH 5.0 Ur Specific [place] 1.026 Urine Protein 3+ H Urine Glucose (UA) 2+ H Urine Ketones Negative Urine Blood 2+ H Urine Nitrite Negative Urine Bilirubin Negative Urine Urobilinogen 4.0 e.u/dl H Ur Leukocyte Esterase Negative Urine WBC (Auto) 3 Urine RBC (Auto) 19 Ur Epithelial Cells Rare Urine Bacteria Many Hyaline Casts 7 Urine Mucus Moderate 10/07/18 10/07/18 10/07/18 08:30 08:30 08:30 WBC RBC Hgb Hct MCV MCH MCHC RDW Plt Count MPV Absolute Neuts (auto) Neutrophils % Lymphocytes % Monocytes % Eosinophils % Basophils % Nucleated RBC % Hypochromia Platelet Estimate Polychromasia Poikilocytosis Anisocytosis Microcytosis Macrocytosis Tear Drop Cells PT with INR 16.80 H INR 1.42 H PTT (Actin FS) 28.1 Puncture Site ABG pH ABG pCO2 at Pt Temp ABG pO2 at Pt Temp ABG HCO3 ABG O2 Sat (Measured) ABG O2 Content ABG Base Excess Gama Test VBG pH POC VBG pCO2 POC VBG pO2 Mixed VBG HCO3 Carboxyhemoglobin Methemoglobin Oxygen Flow Rate Sodium 138 Potassium 5.8 H Chloride 100 Carbon Dioxide 30 Anion Gap 7 L BUN 16 Creatinine 2.3 H Creat Clearance w eGFR 21.56 Random Glucose 266 H Lactic Acid 2.6 H* Calcium 8.1 L Total Bilirubin 0.5 AST 46 H ALT 24 Alkaline Phosphatase 80 Creatine Kinase 198 H Creatine Kinase Index 0.5 CK-MB (CK-2) 1.1 Troponin I 0.07 H Total Protein 7.8 Albumin 2.4 L Urine Color Urine Appearance Urine pH Ur Specific [place] Urine Protein Urine Glucose (UA) Urine Ketones Urine Blood Urine Nitrite Urine Bilirubin Urine Urobilinogen Ur Leukocyte Esterase Urine WBC (Auto) Urine RBC (Auto) Ur Epithelial Cells Urine Bacteria Hyaline Casts Urine Mucus 10/07/18 10/07/18 10/07/18 08:30 08:47 09:29 WBC RBC Hgb Hct MCV MCH MCHC RDW Plt Count MPV Absolute Neuts (auto) Neutrophils % Lymphocytes % Monocytes % Eosinophils % Basophils % Nucleated RBC % Hypochromia Platelet Estimate Polychromasia Poikilocytosis Anisocytosis Microcytosis Macrocytosis Tear Drop Cells PT with INR INR PTT (Actin FS) Puncture Site Right radial Right radial ABG pH 7.16 L* D 7.19 L* ABG pCO2 at Pt Temp 96.7 H* D 90.8 H* ABG pO2 at Pt Temp 57.4 L D 65.3 L ABG HCO3 33.4 H 33.1 H ABG O2 Sat (Measured) 77.1 L 84.5 L ABG O2 Content 10.8 L 12.0 L ABG Base Excess 2.9 H 3.2 H Gama Test Positive Positive VBG pH POC VBG pCO2 POC VBG pO2 Mixed VBG HCO3 Carboxyhemoglobin 1.2 1.2 Methemoglobin 0.5 0.3 L Oxygen Flow Rate Yes Yes Sodium Potassium Chloride Carbon Dioxide Anion Gap BUN Creatinine Creat Clearance w eGFR Random Glucose Lactic Acid Calcium Total Bilirubin AST ALT Alkaline Phosphatase Creatine Kinase Creatine Kinase Index CK-MB (CK-2) Troponin I Cancelled Total Protein Albumin Urine Color Urine Appearance Urine pH Ur Specific [place] Urine Protein Urine Glucose (UA) Urine Ketones Urine Blood Urine Nitrite Urine Bilirubin Urine Urobilinogen Ur Leukocyte Esterase Urine WBC (Auto) Urine RBC (Auto) Ur Epithelial Cells Urine Bacteria Hyaline Casts Urine Mucus *DC/Admit/Observation/Transfer Diagnosis at time of Disposition: Respiratory distress, Hypoxia Sepsis Qualifiers: Sepsis type: sepsis due to unspecified organism Qualified Code(s): A41.9 - Sepsis, unspecified organism - Discharge Dispostion Decision to Admit order: Yes - Referrals - Patient Instructions - Post Discharge Activity
[2018-10-07 08:34] LABS: VENOUS PH 7.18 (7.32-7.42); VENOUS PO2 32.7 mmHg (28-48)
[2018-10-07] MEDS ORDERED: SODIUM CHLORIDE 1,000 ML IV STA ×3 (08:39→17:49)
[2018-10-07] MEDS ORDERED: ERTAPENEM SODIUM 1 GM VIAL IVPB ONE (08:41)
[2018-10-07 08:54] LABS: ARTERIAL BLD GAS O2 SATURATION 77.1 % (90-98.9); ARTERIAL BLOOD GAS BASE EXCESS 2.9 meq/l (-2-2); ARTERIAL BLOOD GAS PCO2 96.7 mmHg (35-45); ARTERIAL BLOOD GAS PO2 57.4 mmHg (80-100); ARTERIAL BLOOD GAS pH 7.16 (7.35-7.45); CARBOXYHEMOGLOBIN 1.2 gm% (0.5-2.0)
[2018-10-07 08:56] LABS: INR 1.42 (0.83-1.09); PROTHROMBIN TIME (PATIENT) 16.8 SEC (9.7-13.0)
[2018-10-07 08:57] LABS: ALLENS TEST POSITIVE
[2018-10-07 08:59] LABS: ACTIVATED PTT 28.1 SECONDS (25.2-36.5)
[2018-10-07 09:05] LABS: ALBUMIN 2.4 g/dl (3.4-5.0); ALK PHOS 80 U/L (45-117); ANION GAP 7 MMOL/L (8-16); BILIRUBIN,TOTAL 0.5 mg/dL (0.2-1); BLOOD UREA NITROGEN 16 mg/dL (7-18); CALCIUM 8.1 mg/dL (8.5-10.1); CHLORIDE 100 mmol/L (98-107); CO2 30 mmol/L (21-32); CREATININE 2.3 mg/dL (0.55-1.3); GLUCOSE,RANDOM 266 mg/dL (74-106); POTASSIUM 5.8 mmol/L (3.5-5.1); SGOT/AST 46 U/L (15-37); SGPT/ALT 24 U/L (13-61); SODIUM 138 mmol/L (136-145); TOT PROT 7.8 g/dl (6.4-8.2)
[2018-10-07 09:39] LABS: BASO % 1.1 % (0-2.0); EOS % 1.2 % (0-4.5); HEMATOCRIT 34.2 % (32.4-45.2); LYMPH % 12.9 % (8-40); MCH 21.6 pg (25.7-33.7); MCHC 29.2 g/dl (32.0-36.0); MEAN CELL VOLUME 74.1 fl (80-96); MEAN PLT VOLUME 9.3 fl (7.5-11.1); NEUT % 75.8 % (42.8-82.8); PLATELET COUNT 323 K/MM3 (134-434); RBC 4.61 M/mm3 (3.60-5.2); RDW 21.4 % (11.6-15.6)
[2018-10-07 09:40] LABS: WHITE BLOOD COUNT 19.7 K/mm3 (4.0-10.0)
[2018-10-07] MEDS ORDERED: ACETAMINOPHEN INJECTION 100 ML IVPB ONE (09:47)
[2018-10-07 10:09] LABS: ARTERIAL BLD GAS O2 SATURATION 84.5 % (90-98.9); ARTERIAL BLOOD GAS BASE EXCESS 3.2 meq/l (-2-2); ARTERIAL BLOOD GAS PO2 65.3 mmHg (80-100); CARBOXYHEMOGLOBIN 1.2 gm% (0.5-2.0)
[2018-10-07 10:13] LABS: ALLENS TEST POSITIVE
[2018-10-07 10:14] LABS: ARTERIAL BLOOD GAS PCO2 90.8 mmHg (35-45); ARTERIAL BLOOD GAS pH 7.19 (7.35-7.45)
[2018-10-07] MEDS ORDERED: SUCCINYLCHOLINE CHLORIDE 200 MG/10 ML VIAL IVPUSH ONE (10:24)
[2018-10-07] MEDS ORDERED: ETOMIDATE 20 MG/10 ML AMPUL IVPUSH ONE (10:24)
[2018-10-07 10:30] LABS: URINE APPEARANCE CLOUDY; URINE BILIRUBIN NEGATIVE (<2.0 mg/dL); URINE COLOR AMBER; URINE GLUCOSE (UA) 2+ (NEGATIVE); URINE KETONE NEGATIVE (NEGATIVE); URINE LEUK ESTERASE NEGATIVE (NEGATIVE); URINE NITRITE NEGATIVE (NEGATIVE); URINE PROTEIN 3+ (NEGATIVE); URINE UROBILINOGEN 4.0 E.U/dl mg/dL (0.2-1.0)
[2018-10-07] MEDS ORDERED: RAPID SEQUENCE INTUBATION KIT NR ONE (10:36)
[2018-10-07] MEDS ORDERED: PROPOFOL 1,000,000 MCG/100 ML VIAL IVPB SCH (11:00)
[2018-10-07 11:03] LABS: EPI CELLS RARE /HPF (FEW); URINE BACTERIA MANY /hpf (NONE SEEN); URINE HYALINE CAST 7 /lpf; URINE MUCUS MODERATE
[2018-10-07] MEDS ORDERED: PROPOFOL 1,000,000 MCG/100 ML VIAL ONE (11:28)
[2018-10-07 12:15] LABS: ANISOCYTOSIS 1+; MACROCYTOSIS 0; PLATELET ESTIMATE NORMAL; TEAR DROP CELLS 1+
--- NOTE | 2018-10-07 12:22 | HP ---
Admitting History and Physical - Primary Care Physician PCP: Silvana Vivar I - Admission History Source: Family Member Limitations to Obtaining History: Intubated - Past Medical History Cardiovascular: Yes: CHF, HTN Pulmonary: Yes: Asthma, Pneumonia Gastrointestinal: Yes: GERD Reproductive: Yes: Fibroids Heme/Onc: Yes: Anemia. No: B12 Deficiency, Bleeding Disorder, Cancer, Current Chemotherapy, Current Radiation Therapy, Hemochromatosis, Hypercoaguable State, Myeloproliferative Synd, Sickle Cell Disease, Sickle Cell Trait, Thrombocytopenia, Other Psych: Yes: Depression Musculoskeletal: Yes: Other (Hx of LE DVT) Endocrine: Yes: Diabetes Mellitus Dermatology: Yes: Other (Fungal rash buttocks) - Past Surgical History Past Surgical History: Yes: Colectomy - Smoking History Smoking history: Former smoker Have you smoked in the past 12 months: No Aproximately how many cigarettes per day: 0 If you are a former smoker, when did you quit?: 1979 - Alcohol/Substance Use Hx Alcohol Use: No History of Substance Use: reports: None - Social History Usual Living Arrangement: Yes: With Spouse ADL: Support Services Occupation: unemployed History of Recent Travel: No Home Medications - Allergies Allergies/Adverse Reactions: Allergies Allergy/AdvReac Type Severity Reaction Status Date / Time piperacillin sodium Allergy Rash Verified 04/23/17 10:50 [From Zosyn] tazobactam sodium Allergy Rash Verified 04/23/17 10:50 [From Zosyn] - Home Medications Home Medications: Ambulatory Orders Acetaminophen [Tylenol] 975 mg PO Q6H PRN 02/22/16 Albuterol 2.5/Ipratropium 0.5 [Duoneb -] 1 neb NEB Q6H 02/22/16 Fluticasone/Salmeterol [Advair 250-50 Diskus] 1 each IH BID 02/22/16 Gabapentin [Neurontin] 300 mg PO Q8H 02/22/16 Mag Hydrox/Al Hydrox/Simeth [Mylanta Oral Suspension -] 30 ml PO Q6H PRN Pantoprazole Sodium [Protonix] 40 mg PO DAILY 02/22/16 Polyvinyl Alcohol [Artificial Tears] 15 ml OD BID 02/22/16 Lisinopril [Prinivil] 20 mg PO BID tablet 02/29/16 Nystatin Ointment [Mycostatin Ointment -] 1 applic TP BID applic 02/29/16 Nystatin Powder [Nystop Powder -] 1 applic TP DAILY applic 02/29/16 Vitamin A & D Top Oint - 1 applic TP BID tube 02/29/16 Diphenhydramine HCl [Benadryl Capsule -] 25 mg PO Q8H PRN #90 cap 05/08/17 Docusate Sodium [Colace -] 100 mg PO TID #90 cap 05/08/17 Ferrous Sulfate [Feosol] 325 mg PO TIDCM #90 cap 05/08/17 Furosemide [Lasix -] 20 mg PO DAILY tablet 05/08/17 Mineral Oil/Pet Hy-Phl [Aquaphor -] 1 applic TP TID #1 jar 05/08/17 Prednisone 10 mg PO ASDIR #14 tablet 05/08/17 Simethicone [Mylicon -] 80 mg PO QID PRN #0 tab.chew 05/08/17 Triamcinolone 0.1% Ointment [Aristocort 0.1% Ointment -] 1 applic TP BID #1 tube 05/08/17 Warfarin Na [Coumadin -] 10 mg PO DAILY@1800 tablet 05/08/17 Family Disease History - Family Disease History Family Disease History: Heart Disease: Father Review of Systems - Review of Systems Constitutional: reports: Other (Intubated) Eyes: reports: No Symptoms HENT: reports: Other (Intubated) Neck: reports: No Symptoms Cardiovascular: reports: No Symptoms Respiratory: reports: No Symptoms Gastrointestinal: reports: No Symptoms, Other Genitourinary: reports: Other (Foul smelling urine) Integumentary: reports: Rash Psychiatric: reports: No Symptoms, Depression Physical Examination Vital Signs: Vital Signs Temperature 102.4 F H 10/07/18 08:44 Pulse Rate 99 H 10/07/18 11:14 Respiratory Rate 16 10/07/18 11:14 Blood Pressure 102/53 L 10/07/18 11:14 O2 Sat by Pulse Oximetry (%) 100 10/07/18 11:14 Constitutional: Yes: Obese Eyes: Yes: Conjunctiva Clear HENT: Yes: Other (Intubated) Neck: Yes: Supple, Trachea Midline Cardiovascular: Yes: WNL, Regular Rate and Rhythm Respiratory: Yes: Regular, CTA Bilaterally Gastrointestinal: Yes: Normal Bowel Sounds, Soft, Abdomen, Obese ...Rectal Exam: Yes: Deferred Renal/: Yes: WNL Breast(s): Yes: WNL Musculoskeletal: Yes: WNL Edema: Yes Edema: LLE: 1+ Peripheral Pulses WNL: Yes Integumentary: Yes: Rash Neurological: Yes: Other (Intubated) Labs: CBC, BMP 10/07/18 08:30 10/07/18 08:30 Assessment/Plan 63 y/o female brought in by spouse for unresponsiveness. BG 300s. Pt septic. Pt intubated and will be admitted to ICU. PMHx includes morbid obesity, htn, asthma , chf, gerd, Hx LE DVT, dm, anemia and fibroids.
--- NOTE | 2018-10-07 13:28 | CONSULT ---
Consultation: REQUESTING PROVIDER:Manoj Humphrey MD CONSULT REQUEST: We have been asked to medically evaluate this patient for (AMS ). HISTORY OF PRESENT ILLNESS: The patient is a 63 year old female, with a significant PMH of hypertension, asthma, diastolic CHF, GERD, prior lower extremity DVT, morbid obesity, DM, anemia, abdominal fibroids, who presents to the emergency department with altered mental status. As per , the patient was noted to be fading in/ out of conversation yesterday. He states he called EMS this morning as the patient was unresponsive. He also states the patient has had malodorous urine for several days. As per EMS, patient blood sugar was in the 300s while en route to the ER. On my presentation pt was intubated sedated and history was taken from and mother . Family reports worsening SOB on exertion and worsening headache, and fatigue for last 3 days. pt can not lay flat and she sleep on 5 pillows Family denies any fever, chills, chest pain , palpitation , , reports nausea but no vomiting and reports decrease appetite for last 2 weeks pt has constipation at base line on Miralax and colace at home family denies any urinary symptoms except foul smelling per EMS reports family mentioned worsening swollen in her legs and abdomen. she has been in Rehab facility for more than one year and she was discharged 2 weeks ago. 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 [employer] , denies any alcohol, tobacco and drugs abuse , and no kids PCP : Dr Vitale (Dr Omer [phone]) cell phone [phone] Home phone [phone] REVIEW OF SYSTEMS: CONSTITUTIONAL: Absent: fever, chills, diaphoresis, generalized weakness, malaise, loss of appetite, weight change HEENT: Absent: rhinorrhea, nasal congestion, throat pain, throat swelling, difficulty swallowing, mouth swelling, ear pain, eye pain, visual changes CARDIOVASCULAR: Absent: chest pain, syncope, palpitations, irregular heart rate, lightheadedness , peripheral edema RESPIRATORY: Absent: cough, shortness of breath, dyspnea with exertion, orthopnea, wheezing, stridor, hemoptysis GASTROINTESTINAL: Absent: abdominal pain, abdominal distension, nausea, vomiting, diarrhea, constipation, melena, hematochezia GENITOURINARY: Absent: dysuria, frequency, urgency, hesitancy, hematuria, flank pain, genital pain MUSCULOSKELETAL: Absent: myalgia, arthralgia, joint swelling, back pain, neck pain SKIN: Absent: rash, itching, pallor HEMATOLOGIC/IMMUNOLOGIC: Absent: easy bleeding, easy bruising, lymphadenopathy, frequent infections ENDOCRINE: Absent: unexplained weight gain, unexplained weight loss, heat intolerance, cold intolerance NEUROLOGIC: Absent: headache, focal weakness or paresthesias, dizziness, unsteady gait, seizure, mental status changes, bladder or bowel incontinence PSYCHIATRIC: Absent: anxiety, depression, suicidal or homicidal ideation, hallucinations. PHYSICAL EXAMINATION Vital Signs - 24 hr 10/07/18 10/07/18 10/07/18 07:40 08:44 09:44 Temperature 102.4 F H Pulse Rate 116 H Pulse Rate [ 113 H Apical] Respiratory 24 H 20 Rate Blood Pressure 105/80 Blood Pressure 111/65 [Right] O2 Sat by Pulse 92 L 82 L 82 L Oximetry (%) 10/07/18 10/07/18 10/07/18 10:53 11:14 12:29 Temperature Pulse Rate 106 H Pulse Rate [ 99 H 92 H Apical] Respiratory 22 H 16 22 H Rate Blood Pressure Blood Pressure 102/53 L 100/81 [Right] O2 Sat by Pulse 94 L 100 99 Oximetry (%) GENERAL: intubated , sedated HEAD: Normal with no signs of trauma. EYES: Pupils equal, round and reactive to light,sclera an icteric ENT: dry MM NECK: supple , obese , can not appreciated JVD LUNGS: expiratory wheezing , bibasilar crackles HEART: Regular rate and rhythm, normal S1 and S2 without murmur, rub or gallop. ABDOMEN: Obese , Soft, nontender, distended, normoactive bowel sounds, no guarding, no rebound, left side mass (fibroids? ) UPPER EXTREMITIES: 2+ pulses, warm, well-perfused. +2 peripheral edema. LOWER EXTREMITIES: 2+ pulses, warm, well-perfused. No calf tenderness. +2 peripheral edema. NEUROLOGICAL: Intubated sedated SKIN: Warm, dry, diffuse rash on buttocks and posterior thigh , stage I ulcer on buttocks Laboratory Results - last 24 hr 10/07/18 10/07/18 10/07/18 08:25 08:25 08:30 WBC 19.7 H RBC 4.61 Hgb 10.0 L Hct 34.2 MCV 74.1 L MCH 21.6 L MCHC 29.2 L RDW 21.4 H Plt Count 323 MPV 9.3 Absolute Neuts (auto) 13.8 H Neutrophils % 75.8 Lymphocytes % 12.9 Monocytes % 9.0 Eosinophils % 1.2 D Basophils % 1.1 D Nucleated RBC % 3 H Hypochromia 1+ Platelet Estimate Normal Polychromasia 2+ Poikilocytosis 1+ Anisocytosis 1+ Microcytosis 1+ Macrocytosis 0 Tear Drop Cells 1+ PT with INR INR PTT (Actin FS) Puncture Site ABG pH ABG pCO2 at Pt Temp ABG pO2 at Pt Temp ABG HCO3 ABG O2 Sat (Measured) ABG O2 Content ABG Base Excess Gama Test VBG pH 7.18 L* POC VBG pCO2 92.0 H* D POC VBG pO2 32.7 D Mixed VBG HCO3 32.8 H Carboxyhemoglobin Methemoglobin Oxygen Flow Rate Sodium Potassium Chloride Carbon Dioxide Anion Gap BUN Creatinine Creat Clearance w eGFR Random Glucose Lactic Acid Calcium Total Bilirubin AST ALT Alkaline Phosphatase Creatine Kinase Creatine Kinase Index CK-MB (CK-2) Troponin I Total Protein Albumin Urine Color Amanda Urine Appearance Cloudy Urine pH 5.0 Ur Specific [place] 1.026 Urine Protein 3+ H Urine Glucose (UA) 2+ H Urine Ketones Negative Urine Blood 2+ H Urine Nitrite Negative Urine Bilirubin Negative Urine Urobilinogen 4.0 e.u/dl H Ur Leukocyte Esterase Negative Urine WBC (Auto) 3 Urine RBC (Auto) 19 Ur Epithelial Cells Rare Urine Bacteria Many Hyaline Casts 7 Urine Mucus Moderate 10/07/18 10/07/18 10/07/18 08:30 08:30 08:30 WBC RBC Hgb Hct MCV MCH MCHC RDW Plt Count MPV Absolute Neuts (auto) Neutrophils % Lymphocytes % Monocytes % Eosinophils % Basophils % Nucleated RBC % Hypochromia Platelet Estimate Polychromasia Poikilocytosis Anisocytosis Microcytosis Macrocytosis Tear Drop Cells PT with INR 16.80 H INR 1.42 H PTT (Actin FS) 28.1 Puncture Site ABG pH ABG pCO2 at Pt Temp ABG pO2 at Pt Temp ABG HCO3 ABG O2 Sat (Measured) ABG O2 Content ABG Base Excess Gama Test VBG pH POC VBG pCO2 POC VBG pO2 Mixed VBG HCO3 Carboxyhemoglobin Methemoglobin Oxygen Flow Rate Sodium 138 Potassium 5.8 H Chloride 100 Carbon Dioxide 30 Anion Gap 7 L BUN 16 Creatinine 2.3 H Creat Clearance w eGFR 21.56 Random Glucose 266 H Lactic Acid 2.6 H* Calcium 8.1 L Total Bilirubin 0.5 AST 46 H ALT 24 Alkaline Phosphatase 80 Creatine Kinase 198 H Creatine Kinase Index 0.5 CK-MB (CK-2) 1.1 Troponin I 0.07 H Total Protein 7.8 Albumin 2.4 L Urine Color Urine Appearance Urine pH Ur Specific [place] Urine Protein Urine Glucose (UA) Urine Ketones Urine Blood Urine Nitrite Urine Bilirubin Urine Urobilinogen Ur Leukocyte Esterase Urine WBC (Auto) Urine RBC (Auto) Ur Epithelial Cells Urine Bacteria Hyaline Casts Urine Mucus 10/07/18 10/07/18 10/07/18 08:30 08:47 09:29 WBC RBC Hgb Hct MCV MCH MCHC RDW Plt Count MPV Absolute Neuts (auto) Neutrophils % Lymphocytes % Monocytes % Eosinophils % Basophils % Nucleated RBC % Hypochromia Platelet Estimate Polychromasia Poikilocytosis Anisocytosis Microcytosis Macrocytosis Tear Drop Cells PT with INR INR PTT (Actin FS) Puncture Site Right radial Right radial ABG pH 7.16 L* D 7.19 L* ABG pCO2 at Pt Temp 96.7 H* D 90.8 H* ABG pO2 at Pt Temp 57.4 L D 65.3 L ABG HCO3 33.4 H 33.1 H ABG O2 Sat (Measured) 77.1 L 84.5 L ABG O2 Content 10.8 L 12.0 L ABG Base Excess 2.9 H 3.2 H Gmaa Test Positive Positive VBG pH POC VBG pCO2 POC VBG pO2 Mixed VBG HCO3 Carboxyhemoglobin 1.2 1.2 Methemoglobin 0.5 0.3 L Oxygen Flow Rate Yes Yes Sodium Potassium Chloride Carbon Dioxide Anion Gap BUN Creatinine Creat Clearance w eGFR Random Glucose Lactic Acid Calcium Total Bilirubin AST ALT Alkaline Phosphatase Creatine Kinase Creatine Kinase Index CK-MB (CK-2) Troponin I Cancelled Total Protein Albumin Urine Color Urine Appearance Urine pH Ur Specific [place] Urine Protein Urine Glucose (UA) Urine Ketones Urine Blood Urine Nitrite Urine Bilirubin Urine Urobilinogen Ur Leukocyte Esterase Urine WBC (Auto) Urine RBC (Auto) Ur Epithelial Cells Urine Bacteria Hyaline Casts Urine Mucus 10/07/18 12:07 WBC RBC Hgb Hct MCV MCH MCHC RDW Plt Count MPV Absolute Neuts (auto) Neutrophils % Lymphocytes % Monocytes % Eosinophils % Basophils % Nucleated RBC % Hypochromia Platelet Estimate Polychromasia Poikilocytosis Anisocytosis Microcytosis Macrocytosis Tear Drop Cells PT with INR INR PTT (Actin FS) Puncture Site ABG pH ABG pCO2 at Pt Temp ABG pO2 at Pt Temp ABG HCO3 ABG O2 Sat (Measured) ABG O2 Content ABG Base Excess Gama Test VBG pH POC VBG pCO2 POC VBG pO2 Mixed VBG HCO3 Carboxyhemoglobin Methemoglobin Oxygen Flow Rate Sodium Potassium Chloride Carbon Dioxide Anion Gap BUN Creatinine Creat Clearance w eGFR Random Glucose Lactic Acid 2.4 H* Calcium Total Bilirubin AST ALT Alkaline Phosphatase Creatine Kinase Creatine Kinase Index CK-MB (CK-2) Troponin I Total Protein Albumin Urine Color Urine Appearance Urine pH Ur Specific [place] Urine Protein Urine Glucose (UA) Urine Ketones Urine Blood Urine Nitrite Urine Bilirubin Urine Urobilinogen Ur Leukocyte Esterase Urine WBC (Auto) Urine RBC (Auto) Ur Epithelial Cells Urine Bacteria Hyaline Casts Urine Mucus Active Medications Generic Name Dose Route Start Last Admin Trade Name Freq PRN Reason Stop Dose Admin Propofol 1,000,000 mcg in 100 mls @ 2.52 mls/hr 10/07/18 11:00 10/07/18 13:19 Diprivan - IVPB 5 mcg/kg/min TITR WAYNE 4.2 mls/hr Administration Protocol 3 MCG/KG/MIN CBC, BMP 10/07/18 08:30 10/07/18 08:30 ASSESSMENT/PLAN: patient is a 63 year old female, with a significant PMH of hypertension, asthma , diastolic CHF, GERD, prior lower extremity DVT, morbid obesity, DM, anemia, abdominal fibroids, who presents to the emergency department with altered mental status. was found to have acute hypoxic hypercapnic respiratory distress and was intubated in ED , and her BP was dropped on propofol sedation, admitted to ICU for further evaluation # Neuro * Acute metabolic encephalopathy * Intubated sedated versed and fentanyl * B12, Folic acid , TSH , * if no improvement will consider Ct head * Urine tox * alcohol level # CV -Acute on chronic DCHF - septic shock unkown resource -Hypotension (HTN before admission ) -Right Heart Failure -Elevated Troponins likely Demand Ischemia * sepsis protocol * maintain BP * IV fluids boluses , recieved 3 L and will give 1-2 L bolus * Dopamin drip to maintain BP * Hold losartan in term of septic shock * ECho * Cardiology consult Dr rivas * EKG : QTC 446, Sinus tachy with left axis deviation , No St,T wave changes # pulm - Acute hypoxic hypercapnec respiratory failure PH 7.19/pco2 90.8/po2 65.3/bec 33.1 - R/O Acute asthma exacerbation * CXR with congestive changes , * Duoneb * Ventolin * Solumedrol 60 Q 8hr * sedation vacation as tolerated _ R/O H PNA * urine AG * Vanco /Meropenem per ID and Diflucan , Azithromycin one dose till AG result * vanco trouph random * ABG in AM # ID - septic shock presented with fever 102, sinus tachy, WBC 19 ,low BP 95/54, non respond to fluids -Lactic acidosis -diffuse skin rask on buttocks with stage I ulcer on buttocks B/L can not r/o fungal infection * clemons cx , UA negative , urine cx * given Ertapenem in ED * ID consulted Dr Contreras , start meropenem * Influeza A, B swap * CXR with congestion changes and interstitial infiltrate -R/O H PNA Urine AG for legionella and strep * Vanco/meropenem per ID Dr Contreras , Azithromycin one dose only till we get legionella AG results # Heme - Microcytic anemia likely due to Fibroid --h/o DVT * H/H .2 * on ferrous sulfate at home resume * no active bleeding currently , her mention bloody spots on Vagina last 2 days * Monitor H/H daily # GI - GERD - Constipation * On Mylanta and ranitidine at home will give Protonix 40 IV daily * cont senna , colace # Nephro - JOEY * BUN/Cr 16/2.3 base line Cr 0.5 * likely pre renal due to low oral intake vs hypoperfusion from DCHF * Given 2 L bolus in ED * repeat lab * avoid nephrotoxic agents * urine lytes , urine NA , urine creatinin , urine osmolality * daily weight . I&O # - UA negative * no buring sensation but report foul smelling * Monitor electrolytes # Endo -IDDM * BGM * ISS * hold Levemir SQ (was on 70 BID at home ) # Musculoskeletal - Morbid obesity - Generalized weakness * pt was discharged recently for [facility] with worsening Fatigue and weakness * PT when stable * Bariatric surgery consult out pt (BMI 53 ) # FEN * 2 L bolus NS was given in ED , * hyperkalemia 5.8 with no ekg changes treated medically with Gluconate CA and Kayexelate , repeat lab * N: npo for now # Proph * DVTS: Hep SQ TID * GI: PPI IV 40 daily # Dispo * Monitor in ICU # Code * Full code * guarded prognosis Dispo: We will continue to follow the patient. Thank you for this consultative opportunity. - repeat ABG - sedate for vent synchrony - taper FiO2, PEEP to keep Spo2 >90% - when oxygen requirements and ABG improved, hold sedation to assess mental status - spontaneous breathing trials as tolerated when mental status improved - DVT/GI prophylaxis - ICU monitoring Visit type - Emergency Visit Emergency Visit: Yes ED Registration Date: 10/07/18 Care time: The patient presented to the Emergency Department on the above date and was hospitalized for further evaluation of their emergent condition. - New Patient This patient is new to me today: Yes Date on this admission: 10/07/18 - Critical Care Critical Care patient: Yes Total Critical Care Time (in minutes): 45 Critical Care Statement: The care of this patient involved high complexity decision making to prevent further life threatening deterioration of the patient 's condition and/or to evaluate & treat vital organ system(s) failure or risk of failure.
[2018-10-07] MEDS ORDERED: fentaNYL CITRATE 250 MCG/5 ML VIAL ONE ×3 (14:25→23:02)
[2018-10-07] MEDS: FENTANYL INJECTION 500 MCG in DEXTROSE 5%-WATER - 90 ML IVPB SCH ×2 (14:30→18:00)
[2018-10-07] MEDS ORDERED: CALCIUM GLUCONATE 10% - 1,000 MG/10 ML VIAL IVPB ONE (15:38)
[2018-10-07] MEDS ORDERED: ALBUTEROL SO4 2.5/IPRATROPIUM 0.5 INH SOL 3 ML VIAL.NEB. NEB PRN (15:40)
[2018-10-07] MEDS ORDERED: ALBUTEROL SO4 0.083% IH SOL 2.5 MG/3 ML VIAL.NEB. NEB PRN (15:40)
[2018-10-07] MEDS ORDERED: SODIUM POLYSTYRENE SULFONATE 15 GM/60 ML BOTTLE NGT ONE (15:46)
[2018-10-07] MEDS ORDERED: SODIUM POLYSTYRENE SULFONATE 15 GM/60 ML BOTTLE PO ONE (15:46)
--- NOTE | 2018-10-07 15:47 | PN ---
Teaching Attending Note Name of Resident: Sammy Tirado ATTENDING PHYSICIAN STATEMENT I saw and evaluated the patient. I reviewed the resident's note and discussed the case with the resident. I agree with the resident's findings and plan as documented. SUBJECTIVE: Pt seen and examined in the ICU. Briefly, 63yo female with h/o HTN, DM, asthma, LV diastolic dysfunction, h/o DVT, morbid obesity, LYLY/OHS who was admitted with altered mental status. ABG showing acute on chronic respiratory acidosis subsequently intubated in the ER. Hypotensive after given propofol, improved with IVF resuscitation. Febrile to 102.4 in the ER. OBJECTIVE: Vital Signs Period Temp Pulse Resp BP Sys/Jones Pulse Ox Last 24 Hr 98.6 F-102.4 F 92-116 14-24 85-111/51-81 82-100 Intake & Output 10/04/18 10/05/18 10/06/18 10/07/18 23:59 23:59 23:59 23:59 Output Total 80 Balance -80 Weight 140 kg Gen: intubated, sedated Heart: RRR Lung: scattered rhonchi Abd: soft, obese Ext: + edema CBC, BMP 10/07/18 08:30 10/07/18 08:30 ABG Results ABG pH 7.19 (7.35-7.45) L* 10/07/18 09:29 ABG pCO2 at Pt Temp 90.8 mmHg (35-45) H* 10/07/18 09:29 ABG pO2 at Pt Temp 65.3 mmHg (80-100) L 10/07/18 09:29 ABG HCO3 33.1 meq/L (22-26) H 10/07/18 09:29 ABG O2 Sat (Measured) 84.5 % (90-98.9) L 10/07/18 09:29 ABG O2 Content 12.0 % vol (15-22) L 10/07/18 09:29 ABG Base Excess 3.2 meq/l (-2-2) H 10/07/18 09:29 CXR: pulmonary vascular congestion Active Medications Albuterol Sulfate (Ventolin 0.083% Nebulizer Soln -) 1 amp NEB Q4H PRN PRN Reason: SHORT OF BREATH/WHEEZING Albuterol/Ipratropium (Duoneb -) 1 amp NEB Q6H PRN PRN Reason: SHORTNESS OF BREATH Calcium Gluconate (Calcium Gluconate 10% -) 1,000 mg IVPB ONCE ONE Stop: 10/07/18 15:39 Heparin Sodium (Porcine) (Heparin -) 5,000 unit SQ TID WAYNE Propofol (Diprivan -) 1,000,000 mcg in 100 mls @ 2.52 mls/hr IVPB TITR WAYNE; Protocol Last Admin: 10/07/18 13:19 Dose: 5 mcg/kg/min, 4.2 mls/hr Fentanyl 500 mcg/ Dextrose 100 mls @ 30 mls/hr IVPB TITR WAYNE Stop: 10/08/18 14:29 Last Admin: 10/07/18 14:30 Dose: 150 mcg/hr, 30 mls/hr Methylprednisolone Sodium Succinate (Solu-Medrol -) 60 mg IVPUSH Q8H WAYNE Pantoprazole Sodium (Protonix Iv) 40 mg IVPUSH DAILY WAYNE ASSESSMENT AND PLAN: Acute on Chronic Hypoxic and Hypercapneic Respiratory Failure Suspect Right Heart Failure Volume Overload Acute on Chronic Diastolic Heart Failure r/o Acute Asthma Exacerbation r/o Pneumonia Severe Sepsis Lactic Acidosis +Troponins likely Demand Ischemia Acute Kidney Injury Morbid Obesity Obstructive Sleep Apnea/Obesity Hypoventilation Syndrome HTN DM h/o DVT - start empiric medrol - inhaled bronchodilators standing and PRN - send influenza antigens - empiric antibiotics - f/u cultures - lasix as BP tolerates - monitor urine output, creatinine - trend lactate, cardiac enzymes - echocardiogram - repeat ABG - sedate for vent synchrony - taper FiO2, PEEP to keep Spo2 >90% - when oxygen requirements and ABG improved, hold sedation to assess mental status - spontaneous breathing trials as tolerated when mental status improved - DVT/GI prophylaxis - ICU monitoring critical care time spent in reviewing chart, evaluating patient and formulating plan 35 min
--- NOTE | 2018-10-07 15:53 | EKG ---
Test Reason : Blood Pressure : / mmHG Vent. Rate : 098 BPM Atrial Rate : 098 BPM P-R Int : 140 ms QRS Dur : 078 ms QT Int : 356 ms P-R-T Axes : 050 -03 018 degrees QTc Int : 454 ms NORMAL SINUS RHYTHM NORMAL ECG WHEN COMPARED WITH ECG OF 07-OCT-2018 07:32, BORDERLINE CRITERIA FOR ANTERIOR INFARCT ARE NO LONGER PRESENT Confirmed by JAYLIN HERRING MD ([id number]) on 10/07/2018 3:52:39 PM Referred By: PALAK MARTINEZ Confirmed By:JAYLIN HERRING MD
[2018-10-07] MEDS ORDERED: DOPAMINE 400 MG/D5W - 400,000 MCG/250 ML INFUS.BAG IVPB SCH (16:30)
[2018-10-07] MEDS ORDERED: MIDAZOLAM 100 MG/100 ML MG IVPB ONE (16:38)
--- NOTE | 2018-10-07 17:03 | PN ---
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 and her helps with her care she has been unable to ambulate at home, she has not had bipap as well at home she has had poor oral intake 2 days ago she became weaker and yesterday she was confused so he called 911 she had fever of 102.4 in the ER and was intubated for hypercapneic respiratory failure she was noted to have an elevated wbc, elevated lactic acid, and elevated creatinine she was given ertapenem in the ED UTD on vaccines (influenza, pneumovax) sepsis-source unclear- cover broadly for skin/lungs at this time acute hypercapneic respiratory failure morbid obesity JOEY cultures sent IVF influenza screen history of MRSA- vancomycin 2 g one dose, follow levels (180 kg per ICU )- contact isolation continue meropenem for broadspectrum coverage given zosyn allergy and recent [facility] discharge add diflucan for fungal dermatitis zithromax one dose pending legionella urinary antigen overall prognosis is guarded over 45 minutes spent in the care of this critically ill ICU patient Problem List - Problems (1) Sepsis Code(s): A41.9 - SEPSIS, UNSPECIFIED ORGANISM Qualifiers: Sepsis type: sepsis due to unspecified organism Qualified Code(s): A41.9 - Sepsis, unspecified organism (2) Respiratory failure with hypercapnia Code(s): J96.92 - RESPIRATORY FAILURE, UNSPECIFIED WITH HYPERCAPNIA (3) Morbid obesity Code(s): E66.01 - MORBID (SEVERE) OBESITY DUE TO EXCESS CALORIES (4) JOEY (acute kidney injury) Code(s): N17.9 - ACUTE KIDNEY FAILURE, UNSPECIFIED
[2018-10-07 17:34] LABS: ARTERIAL BLD GAS O2 SATURATION 98.9 % (90-98.9); ARTERIAL BLOOD GAS pH 7.28 (7.35-7.45)
[2018-10-07 17:47] LABS: ALLENS TEST POSITIVE
[2018-10-07 17:49] LABS: ARTERIAL BLOOD GAS PCO2 67.1 mmHg (35-45)
[2018-10-07] MEDS ORDERED: AZITHROMYCIN IVPB 500 MG/250 ML BAG IVPB ONE (17:52)
[2018-10-07] MEDS ORDERED: MEROPENEM 1 GM in DEXTROSE 5%-WATER 100 ML IVPB SCH (18:00)
[2018-10-07] MEDS ORDERED: VANCOMYCIN 2,000 MG in DEXTROSE 5%-WATER - 500 ML IVPB ONE (18:45)
[2018-10-07 19:08] LABS: COCAINE, UR NEGATIVE ng/ml (CUTOFF=300); METHADONE, UR NEGATIVE ng/ml (CUTOFF=300); OPIATES, URI NEGATIVE ng/ml (CUTOFF=300); PHENCYCLIDINE,URINE NEGATIVE ng/ml (CUTOFF=25); URINE AMPHETAMINES NEGATIVE ng/ml (CUTOFF=500); URINE BARBITURATES NEGATIVE ng/ml (CUTOFF=200); URINE BENZODIAZEPINES NEGATIVE ng/ml (CUTOFF=200)
--- NOTE | 2018-10-07 19:22 | CONS ---
DATE OF CONSULTATION: DATE OF DICTATION: 10/07/2018 INFECTIOUS DISEASE CONSULTATION REQUESTING LIBERTARIAN: ICU Service CONSULTING PHYSICIAN: Paco Handy M.D. HISTORY OF PRESENT ILLNESS: A 63-year-old female who is morbidly obese. She was hospitalized here at [facility] after which the reports she had an extended hospitalization. She had an admission here with cellulitis and sepsis and was transferred to the [facility] from here, where she has been for over a year. About 2 weeks back, they took her home from the [facility], and she has had a home health aid and her to help her. She has had poor appetite at home. She has not had CPAP. Over the last 2 days, she noted she was getting progressively weaker. Yesterday she became confused, and he brought her to the emergency room. He reports at the [facility] she was ambulating 100 feet with a walker, at home she had not even been able to do that, and he has been changing her in bed. She has multiple excoriations on her back, which he notes he has been trying to keep clean. Her course in the emergency room was notable for, she presented lethargic and obtunded and with a fever of 102. She was originally placed on BiPAP with no improvement on blood gas, which revealed hypercapnic respiratory failure. She was intubated and apparently a small amount of emesis was noted in the oropharynx. She was admitted to the ICU for further evaluation. She received a dose of ertapenem in the emergency room. Upstairs in the ICU, she is intubated, she again has had fever, and I am asked to see her for further evaluation. Of note, she has had 2 chest x-rays that have been read as unremarkable for any focal infiltrate. She has a urinalysis that is unremarkable as well. She may well have aspirated. She had a fever of 102 in the ER. She had an elevated white count of 19,000, elevated lactic acid of 2.6, and elevated creatinine of 2.4. PAST MEDICAL HISTORY: Significant for history of CHF, hypertension, asthma, pneumonia, GERD, anemia, and diabetes. She has had multiple skin problems in the past per her . SURGICAL HISTORY: Notable for a colectomy in the past. ALLERGIES: Allergic to ZOSYN which gives her a rash. SOCIAL HISTORY: She resides with her . There have been no sick contacts. She has a home health aid as well, he has been caring for her and she is a former smoker who quit in 1979. REVIEW OF SYSTEMS: As per the , she has had no diarrhea. He has noted that her urine has been foul smelling, and that these areas of desquamation and skin peeling on her back. Patient is awake enough when I first saw her to shake her head no when I asked if she had any chest pain or abdominal pain. PHYSICAL EXAMINATION: VITAL SIGNS: Current temperature is 98.6, pulse of 97, blood pressure 100/51, respiratory rate 18. She is saturating 100% on 80% FiO2. HEENT: Normocephalic. She is orally intubated. NECK: Supple. LUNGS: Diminished breath sounds at the bases. HEART: Regular rate and rhythm. ABDOMEN: Soft. She has a midline surgical incision that is soft. She has a large pannus with a large sort of fibroid like mass on the right side. EXTREMITIES: Trace edema. She has a Kaur in place with minimal urine output. BACK: She has multiple areas of desquamation of her skin, what appears to be like some fungal rash in the folds. LABORATORY: Her white count is 19.7, hemoglobin 10, platelets are 323. Her BUN and creatinine are 16 and 2.3 with glucose of 266. Lactic acid is 2.4. LFTs are normal with a CK of 198. Urinalysis has 2+ blood, leukocyte esterase negative. Chest x-ray per radiology. Shows no effusion or pneumothorax, and no clearcut infiltrate. IMPRESSION: In summary, this is a morbidly obese woman with hypercapnic respiratory failure and sepsis, morbid obesity with evidence of a fungal rash. Of note in the past she has been colonized with methicillin-resistant Staphylococcus aureus as well. Her cultures have been sent with blood and urine, would send a sputum as well. Continue intravenous fluids. Would obtain an influenza. With the history of methicillin-resistant Staphylococcus aureus, would dose her for vancomycin. Her weight per the intensive care unit is [address] her in contact isolation. Would continue meropenem for broad spectrum coverage given her Zosyn allergy and recent [facility] discharge. Would add Diflucan for fungal dermatitis as well. At this time, overall prognosis is guarded. I spoke at length with her who is at her bedside, over 40 minutes was spent in the care of this critically ill ICU patient. PACO HANDY M.D. [id number]
[2018-10-07] MEDS: MIDAZOLAM 100 MG in SODIUM CHLORIDE 100 ML IVPB SCH (19:30)
[2018-10-07] MEDS: MEROPENEM 1 GM in DEXTROSE 5%-WATER 100 ML IVPB SCH (19:39)
[2018-10-07] MEDS: methylPREDNISolone NA SUCC 40 MG/1 ML VIAL IVPUSH SCH (19:44)
[2018-10-07] MEDS: ALBUTEROL SO4 2.5/IPRATROPIUM 0.5 INH SOL 3 ML VIAL.NEB. NEB SCH (20:50)
[2018-10-07] MEDS: HEPARIN NA (PORCINE) 5,000 UNITS/ML 1ML VIAL SQ SCH ×2 (21:06→22:16)
[2018-10-07] MEDS: INSULIN SLIDING SCALE (NOVOLOG) 1 VIAL SQ SCH (21:17)
[2018-10-07 21:36] LABS: ALBUMIN 2.2 g/dl (3.4-5.0); ALK PHOS 64 U/L (45-117); ANION GAP 10 MMOL/L (8-16); BILIRUBIN,TOTAL 0.5 mg/dL (0.2-1); BLOOD UREA NITROGEN 18 mg/dL (7-18); CALCIUM 7.1 mg/dL (8.5-10.1); CHLORIDE 104 mmol/L (98-107); CO2 28 mmol/L (21-32); CREATININE 2.5 mg/dL (0.55-1.3); GLUCOSE,RANDOM 231 mg/dL (74-106); POTASSIUM 4.5 mmol/L (3.5-5.1); SGOT/AST 41 U/L (15-37); SGPT/ALT 22 U/L (13-61); SODIUM 142 mmol/L (136-145); TOT PROT 6.3 g/dl (6.4-8.2)
[2018-10-07 22:51] LABS: ARTERIAL BLD GAS O2 SATURATION 98.3 % (90-98.9); ARTERIAL BLOOD GAS BASE EXCESS 4.7 meq/l (-2-2); ARTERIAL BLOOD GAS PCO2 43.8 mmHg (35-45); ARTERIAL BLOOD GAS pH 7.44 (7.35-7.45)
[2018-10-07 22:55] LABS: ALLENS TEST POSITIVE
[2018-10-08] MEDS: MEROPENEM 1 GM in DEXTROSE 5%-WATER 100 ML IVPB SCH ×3 (01:23→17:09)
[2018-10-08] MEDS: methylPREDNISolone NA SUCC 40 MG/1 ML VIAL IVPUSH SCH ×3 (01:24→17:08)
[2018-10-08 01:41] LABS: ALBUMIN 2.1 g/dl (3.4-5.0); ALK PHOS 66 U/L (45-117); ANION GAP 8 MMOL/L (8-16); BILIRUBIN,TOTAL 0.6 mg/dL (0.2-1); BLOOD UREA NITROGEN 20 mg/dL (7-18); CALCIUM 7.6 mg/dL (8.5-10.1); CHLORIDE 101 mmol/L (98-107); CO2 29 mmol/L (21-32); GLUCOSE,RANDOM 275 mg/dL (74-106); MAGNESIUM 1.9 mg/dL (1.8-2.4); PHOSPHOROUS 3.2 mg/dL (2.5-4.9); POTASSIUM 4.8 mmol/L (3.5-5.1); SGOT/AST 44 U/L (15-37); SGPT/ALT 23 U/L (13-61); SODIUM 138 mmol/L (136-145); TOT PROT 6.7 g/dl (6.4-8.2)
[2018-10-08] MEDS: HEPARIN NA (PORCINE) 5,000 UNITS/ML 1ML VIAL SQ SCH ×3 (05:25→21:14)
[2018-10-08] MEDS ORDERED: fentaNYL CITRATE 250 MCG/5 ML VIAL ONE ×4 (06:07→23:55)
[2018-10-08] MEDS: INSULIN SLIDING SCALE (NOVOLOG) 1 VIAL SQ SCH ×5 (06:40→22:43)
[2018-10-08 07:13] LABS: ARTERIAL BLD GAS O2 SATURATION 98.8 % (90-98.9); ARTERIAL BLOOD GAS PCO2 43.3 mmHg (35-45); ARTERIAL BLOOD GAS pH 7.42 (7.35-7.45)
[2018-10-08 07:25] LABS: ALLENS TEST POSITIVE
[2018-10-08] MEDS: ALBUTEROL SO4 2.5/IPRATROPIUM 0.5 INH SOL 3 ML VIAL.NEB. NEB SCH ×4 (07:25→21:24)
[2018-10-08] MEDS ORDERED: LACTATED RINGERS SOLUTION 1,000 ML/1,000 ML INFUS.BAG IV SCH (08:30)
[2018-10-08 08:40] LABS: BASO % 0.3 % (0-2.0); EOS % 0.1 % (0-4.5); HEMATOCRIT 32.6 % (32.4-45.2); HEMOGLOBIN 9.8 GM/dL (10.7-15.3); LYMPH % 5.7 % (8-40); MCH 21.3 pg (25.7-33.7); MCHC 30.1 g/dl (32.0-36.0); MEAN CELL VOLUME 70.7 fl (80-96); MEAN PLT VOLUME 9.7 fl (7.5-11.1); MONO % 2.1 % (3.8-10.2); NEUT % 91.8 % (42.8-82.8); PLATELET COUNT 249 K/MM3 (134-434); RBC 4.61 M/mm3 (3.60-5.2); RDW 20.7 % (11.6-15.6); WHITE BLOOD COUNT 16.3 K/mm3 (4.0-10.0)
--- NOTE | 2018-10-08 08:41 | PN ---
Progress Note (short form) - Note Progress Note: remains intubated fio2 40% opens eyes comfortable no pressors Vital Signs Period Temp Pulse Resp BP Sys/Jones Pulse Ox Last 24 Hr 98.6 F-102.4 F 86-123 14-24 85-138/50-98 82-100 orally intubated cor-rrr lungs crackles right base abd soft,nt +midline vertical incision +pannus with large left sided mass ext no edema labs pending cxray RLL infiltrate-right hemidiaphragm is obscured (my reading) micro pending influenza negative vancomycin trough pending Current Medications Albuterol Sulfate (Ventolin 0.083% Nebulizer Soln -) 1 amp NEB Q4H PRN PRN Reason: SHORT OF BREATH/WHEEZING Albuterol/Ipratropium (Duoneb -) 1 amp NEB RQID [facility] Last Admin: 10/08/18 07:25 Dose: 1 amp Heparin Sodium (Porcine) (Heparin -) 5,000 unit SQ TID [facility] Last Admin: 10/08/18 05:25 Dose: 5,000 unit Propofol (Diprivan -) 1,000,000 mcg in 100 mls @ 2.52 mls/hr IVPB TITR [facility]; Protocol Last Admin: 10/07/18 13:19 Dose: 5 mcg/kg/min, 4.2 mls/hr Fentanyl 500 mcg/ Dextrose 100 mls @ 30 mls/hr IVPB TITR [facility] Stop: 10/08/18 14:29 Last Titration: 10/08/18 06:41 Dose: 100 mcg/hr, 20 mls/hr Dopamine HCl/Dextrose (Dopamine 400 Mg/D5w -) 400,000 mcg in 250 mls @ 26.25 mls/hr IVPB TITR [facility]; Protocol Last Titration: 10/07/18 18:30 Dose: 0 mcg/kg/min, 0 mls/hr Midazolam HCl 100 mg/ Sodium (Chloride) 100 mls @ 1 mls/hr IVPB TITR [facility]; Protocol Last Admin: 10/07/18 19:30 Dose: 5 mg/hr, 5 mls/hr Meropenem 1 gm/ Dextrose 100 mls @ 200 mls/hr IVPB Q8H-IV [facility] Last Admin: 10/08/18 01:23 Dose: 200 mls/hr Fluconazole (Diflucan 100 Mg/D5w Premixed Ivpb -) 50 mls @ 100 mls/hr IVPB DAILY [facility] Lactated Ringer's (Lactated Ringers Solution) 1,000 ml in 1,000 mls @ 100 mls/ hr IV ASDIR [facility] Insulin Aspart (Novolog Vial Sliding Scale -) 1 vial SQ ACHS [facility]; Protocol Last Admin: 10/08/18 06:40 Dose: 10 units Methylprednisolone Sodium Succinate (Solu-Medrol -) 60 mg IVPUSH Q8H-IV [facility] Last Admin: 10/08/18 01:24 Dose: 60 mg Pantoprazole Sodium (Protonix Iv) 40 mg IVPUSH DAILY [facility] a/p sepsis-suspect pneumonia-hcap- recently discharged from [facility] acute hypercapneic respiratory failure morbid obesity JOEY zosyn allergy IVF continue meropenem vancomycin by level (today pending) f/u cultures/labs f/u echo d/w ICU housestaff hemodynamically stable Problem List - Problems (1) Sepsis Code(s): A41.9 - SEPSIS, UNSPECIFIED ORGANISM Qualifiers: Sepsis type: sepsis due to unspecified organism Qualified Code(s): A41.9 - Sepsis, unspecified organism (2) Respiratory failure with hypercapnia Code(s): J96.92 - RESPIRATORY FAILURE, UNSPECIFIED WITH HYPERCAPNIA (3) Morbid obesity Code(s): E66.01 - MORBID (SEVERE) OBESITY DUE TO EXCESS CALORIES (4) JOEY (acute kidney injury) Code(s): N17.9 - ACUTE KIDNEY FAILURE, UNSPECIFIED
--- NOTE | 2018-10-08 09:02 | CON.CARD ---
Consult Consult Specialty:: cardiology Reason for Consultation:: altered mental status; became unresponsive--> intubation - History of Present Illness Chief Complaint: Pt is intubated, sedated. History of Present Illness: he patient is a 63 year old female, with a significant PMH of hypertension, asthma, diastolic CHF, GERD, prior lower extremity DVT, morbid obesity, DM, anemia, abdominal fibroids, who presents to the emergency department with altered mental status. As per , the patient was noted to be fading in/ out of conversation yesterday. He states he called EMS this morning as the patient was unresponsive. He also states the patient has had malodorous urine for several days. As per EMS, patient blood sugar was in the 300s while en route to the ER. Found febrile on admission. - History Source History Provided By: Medical Record Limitations to Obtaining History: Unresponsive - Past Medical History Cardio/Vascular: Yes: CHF, HTN Pulmonary: Yes: Asthma, Pneumonia Gastrointestinal: Yes: GERD Reproductive: Yes: Postmenopausal ...: No Psych: Yes: Depression Musculoskeletal: Yes: Other (Hx of LE DVT) Endocrine: Yes: Diabetes Mellitus Dermatology: Yes: Other (Fungal rash buttocks) - Past Surgical History Past Surgical History: Yes: Colectomy - Alcohol/Substance Use Hx Alcohol Use: No History of Substance Use: reports: None - Smoking History Smoking history: Former smoker Have you smoked in the past 12 months: No Aproximately how many cigarettes per day: 0 If you are a former smoker, when did you quit?: 1979 - Social History Usual Living Arrangement: With Spouse ADL: Support Services Occupation: unemployed History of Recent Travel: No Home Medications - Allergies Allergies/Adverse Reactions: Allergies Allergy/AdvReac Type Severity Reaction Status Date / Time piperacillin sodium Allergy Rash Verified 04/23/17 10:50 [From Zosyn] tazobactam sodium Allergy Rash Verified 04/23/17 10:50 [From Zosyn] - Home Medications Home Medications: Ambulatory Orders Acetaminophen [Tylenol] 650 mg PO BID 02/22/16 Albuterol 2.5/Ipratropium 0.5 [Duoneb -] 1 neb NEB Q6H 02/22/16 Fluticasone/Salmeterol [Advair 250-50 Diskus] 1 each IH BID 02/22/16 Gabapentin [Neurontin] 300 mg PO Q8H 02/22/16 Alcohol Antiseptic Pads [Alcohol Prep Pads] 10/07/18 Calcium Carbonate [Calcium] 500 mg PO BID 10/07/18 Insulin Aspart [Novolog] 10 unit SQ TID 10/07/18 Insulin Aspart [Novolog] 100 unit SQ TID 10/07/18 Losartan Potassium 25 mg PO DAILY 10/07/18 Mineral Oil/Hydrophil Petrolat [Aquaphor Healing Ointment] 10/07/18 Prednisone 2.5 mg PO DAILY 10/07/18 Ranitidine HCl 150 mg PO BID 10/07/18 Sennosides [Senna] 8.6 mg PO BID 10/07/18 Family Disease History - Family Disease History Family Disease History: Heart Disease: Father Review of Systems Unable to obtain ROS, reason: intubated; unresponsive - Risk Factors Known Risk Factors: Yes: Age, Diabetes Mellitus, Physical Inactivity, Smoking ( former), Other (morbid obesity) Vital Signs: Vital Signs Temperature 100.2 F H 10/08/18 06:00 Pulse Rate 89 10/08/18 08:18 Respiratory Rate 20 10/08/18 08:18 Blood Pressure 117/66 10/08/18 08:00 O2 Sat by Pulse Oximetry (%) 99 10/08/18 08:18 Constitutional: Yes: Obese Eyes: Yes: Other Respiratory: Yes: Intubated, Mechanically Ventilated Gastrointestinal: Yes: Abdomen, Obese Renal/: No: Anuria JVD: Yes PMI: Non-Displaced Heart Sounds: Yes: S1, S2 Musculoskeletal: Yes: Other Edema: Yes Edema: LLE: Trace, RLE: Trace Peripheral Pulses WNL: No Peripheral Pulses: 1+ Left Doralis Pedis, 1+ Right Dorsalis Pedis Integumentary: Yes: WNL Neurological: Yes: Unresponsive Psychiatric: Yes: Other - Other Data Labs, Other Data: CBC, BMP 10/08/18 07:57 INR, PTT INR 1.42 (0.83-1.09) H 10/07/18 08:30 Troponin, BNP 10/07/18 10/07/18 10/07/18 08:30 17:00 17:00 Troponin I 0.07 H Cancelled 0.10 H 10/08/18 02:00 Troponin I 0.06 H Troponin, BNP 10/07/18 10/07/18 10/07/18 08:30 17:00 17:00 Troponin I 0.07 H Cancelled 0.10 H 10/08/18 02:00 Troponin I 0.06 H Abnormal Lab Results 10/07/18 10/08/18 10/08/18 17:40 02:00 06:00 WBC Hgb MCV MCH MCHC RDW Absolute Neuts (auto) Neutrophils % Neutrophils % (Manual) Lymphocytes % Lymphocytes % (Manual) Monocytes % Monocytes % (Manual) Nucleated RBC % ABG pO2 at Pt Temp 133.0 H ABG HCO3 27.3 H ABG O2 Content 13.4 L ABG Base Excess 3.0 H BUN Creatinine Random Glucose Calcium Troponin I 0.06 H Albumin Ur Random Sodium 34 L Ur Random Chloride 35 L Vancomycin Pre-Dose 10/08/18 10/08/18 10/08/18 07:57 07:57 07:57 WBC 16.3 H Hgb 9.8 L MCV 70.7 L MCH 21.3 L MCHC 30.1 L RDW 20.7 H Absolute Neuts (auto) 14.9 H Neutrophils % 91.8 H D Neutrophils % (Manual) 95.0 H Lymphocytes % 5.7 L D Lymphocytes % (Manual) 3.0 L Monocytes % 2.1 L Monocytes % (Manual) 2 L Nucleated RBC % 1 H ABG pO2 at Pt Temp ABG HCO3 ABG O2 Content ABG Base Excess BUN 23 H Creatinine 1.6 H Random Glucose 309 H* Calcium 7.7 L Troponin I Albumin 2.1 L Ur Random Sodium Ur Random Chloride Vancomycin Pre-Dose 11.2 L Imaging - Results Chest X-ray: Image Reviewed EKG: Image Reviewed Problem List - Problems (1) Sleep apnea Code(s): G47.30 - SLEEP APNEA, UNSPECIFIED (2) Acute on chronic diastolic CHF (congestive heart failure) Assessment/Plan: Elevated BNP; + JVP. CXR: bilateral pleural effusion. Septic. Problematic using diuretics, given periods of hypotension. Hx diastolic CHF; f/u today's ECHO. F/u BUN/Cr, electrolytes, daily weight, Is and Os. Code(s): I50.33 - ACUTE ON CHRONIC DIASTOLIC (CONGESTIVE) HEART FAILURE (3) Morbid obesity Code(s): E66.01 - MORBID (SEVERE) OBESITY DUE TO EXCESS CALORIES (4) [place] cardiac risk >20% in next 10 years Assessment/Plan: aggressive control of lipids (f/u lipid panel; TSH) and glucose. Coronary artery evaluation when stable (stress MIBI). Code(s): Z91.89 - [facility] PERSONAL RISK FACTORS, NOT ELSEWHERE CLASSIFIED (5) Elevated troponin Assessment/Plan: mildly increased TNI (0.07), with normal CKMB. Normal EKG. Likely demand ischemia from sepsis, CHF, respiratory failure. F/u TNI and EKG serially. Stress MIBI when stable. Code(s): R74.8 - ABNORMAL LEVELS OF OTHER SERUM ENZYMES (6) Sepsis Assessment/Plan: Leukocytosis; febrile. Likely PNA. Antibiotics per ID; f/u cultures. Code(s): A41.9 - SEPSIS, UNSPECIFIED ORGANISM Qualifiers: Sepsis type: sepsis due to unspecified organism Qualified Code(s): A41.9 - Sepsis, unspecified organism Assessment/Plan CCU time spent: 70 minutes.
[2018-10-08 09:11] LABS: ALBUMIN 2.1 g/dl (3.4-5.0); ALK PHOS 67 U/L (45-117); ANION GAP 10 MMOL/L (8-16); BILIRUBIN,TOTAL 0.5 mg/dL (0.2-1); BLOOD UREA NITROGEN 23 mg/dL (7-18); CALCIUM 7.7 mg/dL (8.5-10.1); CHLORIDE 102 mmol/L (98-107); CO2 27 mmol/L (21-32); CREATININE 1.6 mg/dL (0.55-1.3); MAGNESIUM 2.1 mg/dL (1.8-2.4); POTASSIUM 4.7 mmol/L (3.5-5.1); SGOT/AST 35 U/L (15-37); SGPT/ALT 22 U/L (13-61); SODIUM 138 mmol/L (136-145); TOT PROT 6.7 g/dl (6.4-8.2)
[2018-10-08 09:15] LABS: GLUCOSE,RANDOM 309 mg/dL (74-106)
[2018-10-08] MEDS ORDERED: PT OWN MED DRAWER 7, Y5N ONE ×2 (09:17→16:05)
[2018-10-08] MEDS ORDERED: VANCOMYCIN 2,000 MG in DEXTROSE 5%-WATER - 500 ML IVPB SCH (09:30)
[2018-10-08] MEDS ORDERED: FLUCONAZOLE 100 MG/D5W 50 ML IVPB SCH (10:00)
--- NOTE | 2018-10-08 10:06 | ECHO ---
Name: LARY MCCLELLAN Exam:Adult Echocardiogram Study Date: 10/08/2018 08:50 AM Age: 63 yrs Reason For Study: CHF Height: 64 in Weight: 308 lb BSA: 2.4 m2 MMode/2D Measurements & Calculations IVSd: 0.80 cm Ao root diam: 2.4 cm LVIDd: 5.0 cm LA dimension: 3.5 cm LVIDs: 3.6 cm LVPWd: 1.00 cm EDV(Teich): 119.2 ml LVOT diam: 2.0 cm ESV(Teich): 56.1 ml Doppler Measurements & Calculations MV E max cameron: 99.4 cm/sec Ao V2 max: 230.8 cm/sec MV A max cameron: 103.8 cm/sec Ao max P.3 mmHg MV E/A: 0.96 Ao V2 mean: 170.3 cm/sec MV dec time: 0.10 sec Ao mean P.1 mmHg Ao V2 VTI: 46.8 cm BLANCA(I,D): 1.4 cm2 BLANCA(V,D): 1.4 cm2 LV V1 max P.7 mmHg SV(LVOT): 63.3 ml LV V1 mean P.4 mmHg LV V1 max: 108.2 cm/sec LV V1 mean: 73.8 cm/sec LV V1 VTI: 20.8 cm TR max cameron: 225.8 cm/sec TR max P.6 mmHg Procedure The study was technically difficult with many images being suboptimal in quality. Left Ventricle Left ventricular systolic function is grossly normal. Ejection Fraction = 50%. Regional wall motion abnormalities cannot be excluded due to limited visualization. Right Ventricle The right ventricle is not well visualized. Atria Normal left and right atrial size and function. Mitral Valve The mitral valve is grossly normal. There is no mitral valve stenosis. There is mild mitral regurgita tion. Tricuspid Valve The tricuspid valve is not well visualized, but is grossly normal. There is mild tricuspid regurgitat ion. Aortic Valve There is mild aortic sclerosis.;. No hemodynamically significant valvular aortic stenosis. No aortic regurgitation is present. Pulmonic Valve The pulmonic valve is not well seen, but is grossly normal. There is no pulmonic valvular stenosis. Great Vessels The aortic root is normal size. Pericardium/Pleura There is no pericardial effusion. Interpretation Summary The study was technically difficult with many images being suboptimal in quality. Regional wall motion abnormalities cannot be excluded due to limited visualization. Left ventricular systolic function is grossly normal. Ejection Fraction = 50%. There is mild mitral regurgitation. There is mild aortic sclerosis.; There is no pericardial effusion. MD Shields *Jorge L 10/08/2018 10:06 AM
[2018-10-08] MEDS: PANTOPRAZOLE SODIUM 40 MG VIAL IVPUSH SCH (10:07)
[2018-10-08] MEDS: FLUCONAZOLE 100 MG/D5W 50 ML IVPB SCH (10:10)
--- NOTE | 2018-10-08 10:29 | PN ---
Progress Note (short form) - Note Progress Note: 63 y/o female lying in bed. Did not respond but appears comfortable. Vital Signs Period Temp Pulse Resp BP Sys/Jones Pulse Ox Last 24 Hr 98.6 F-100.4 F 82-123 14-22 85-138/50-98 94-100 CBC, BMP 10/08/18 07:57 10/08/18 07:57 HEENT- Intubated Neck- supple Lungs- BS diminished Heart- S1/S2 Abd-obese, soft, nt Ext- B/L 1+ pitting edema Active Medications Albuterol Sulfate (Ventolin 0.083% Nebulizer Soln -) 1 amp NEB Q4H PRN PRN Reason: SHORT OF BREATH/WHEEZING Albuterol/Ipratropium (Duoneb -) 1 amp NEB RQID [facility] Last Admin: 10/08/18 07:25 Dose: 1 amp Heparin Sodium (Porcine) (Heparin -) 5,000 unit SQ TID [facility] Last Admin: 10/08/18 05:25 Dose: 5,000 unit Propofol (Diprivan -) 1,000,000 mcg in 100 mls @ 2.52 mls/hr IVPB TITR [facility]; Protocol Last Admin: 10/07/18 13:19 Dose: 5 mcg/kg/min, 4.2 mls/hr Fentanyl 500 mcg/ Dextrose 100 mls @ 30 mls/hr IVPB TITR [facility] Stop: 10/08/18 14:29 Last Titration: 10/08/18 06:41 Dose: 100 mcg/hr, 20 mls/hr Dopamine HCl/Dextrose (Dopamine 400 Mg/D5w -) 400,000 mcg in 250 mls @ 26.25 mls/hr IVPB TITR [facility]; Protocol Last Titration: 10/07/18 18:30 Dose: 0 mcg/kg/min, 0 mls/hr Midazolam HCl 100 mg/ Sodium (Chloride) 100 mls @ 1 mls/hr IVPB TITR [facility]; Protocol Last Admin: 10/07/18 19:30 Dose: 5 mg/hr, 5 mls/hr Meropenem 1 gm/ Dextrose 100 mls @ 200 mls/hr IVPB Q8H-IV [facility] Last Admin: 10/08/18 10:10 Dose: 200 mls/hr Fluconazole (Diflucan 100 Mg/D5w Premixed Ivpb -) 50 mls @ 100 mls/hr IVPB DAILY [facility] Last Admin: 10/08/18 10:10 Dose: 100 mls/hr Lactated Ringer's (Lactated Ringers Solution) 1,000 ml in 1,000 mls @ 100 mls/ hr IV ASDIR [facility] Last Admin: 10/08/18 10:00 Dose: 100 mls/hr Vancomycin HCl 2,000 mg/ (Dextrose) 500 mls @ 250 mls/hr IVPB Q24H [facility]; Protocol Insulin Aspart (Novolog Vial Sliding Scale -) 1 vial SQ ACHS [facility]; Protocol Last Admin: 10/08/18 06:40 Dose: 10 units Methylprednisolone Sodium Succinate (Solu-Medrol -) 60 mg IVPUSH Q8H-IV [facility] Last Admin: 10/08/18 10:07 Dose: 60 mg Pantoprazole Sodium (Protonix Iv) 40 mg IVPUSH DAILY [facility] Last Admin: 10/08/18 10:07 Dose: 40 mg Assment/plan #hcap Intubated ICU #morbid Obesity #sepsis ID consult appreciated WBC ct 16.3 down from 19.7 Chest xray shows dev B/L pleural effusions urine cult neg blood/sputum cultures pending Cont IV vanco for hx of MRSA Cont IV Meropenum for broad spectrum coverage due to Zosyn allergy #IDDM BG 309 Novolog sliding scale #JOEY Trend renal #fungal dermatitis Diflucan Problem List - Problems (1) Sepsis Code(s): A41.9 - SEPSIS, UNSPECIFIED ORGANISM Qualifiers: Sepsis type: sepsis due to unspecified organism Qualified Code(s): A41.9 - Sepsis, unspecified organism (2) Respiratory failure with hypercapnia Code(s): J96.92 - RESPIRATORY FAILURE, UNSPECIFIED WITH HYPERCAPNIA (3) Morbid obesity Code(s): E66.01 - MORBID (SEVERE) OBESITY DUE TO EXCESS CALORIES (4) JOEY (acute kidney injury) Code(s): N17.9 - ACUTE KIDNEY FAILURE, UNSPECIFIED
--- NOTE | 2018-10-08 11:39 | EKG ---
Test Reason : Blood Pressure : / mmHG Vent. Rate : 090 BPM Atrial Rate : 090 BPM P-R Int : 142 ms QRS Dur : 084 ms QT Int : 376 ms P-R-T Axes : 070 054 075 degrees QTc Int : 459 ms NORMAL SINUS RHYTHM NORMAL ECG WHEN COMPARED WITH ECG OF 07-OCT-2018 15:10, QUESTIONABLE CHANGE IN QRS AXIS NONSPECIFIC T WAVE ABNORMALITY NO LONGER EVIDENT IN INFERIOR LEADS Confirmed by CHIN INGRAM, MARYAM ([id number]) on 10/08/2018 11:39:23 AM Referred By: Confirmed By:MARYAM NEELY MD
[2018-10-08 11:44] LABS: ANISOCYTOSIS 1+; MACROCYTOSIS 0; OVALOCYTE 1+; PLATELET ESTIMATE NORMAL; TEAR DROP CELLS 1+
[2018-10-08] MEDS: VANCOMYCIN 2,000 MG in DEXTROSE 5%-WATER - 500 ML IVPB SCH (12:00)
--- NOTE | 2018-10-08 12:04 | EKG ---
Test Reason : Blood Pressure : / mmHG Vent. Rate : 120 BPM Atrial Rate : 120 BPM P-R Int : 142 ms QRS Dur : 082 ms QT Int : 322 ms P-R-T Axes : 052 -31 021 degrees QTc Int : 455 ms SINUS TACHYCARDIA LEFT AXIS DEVIATION POSSIBLE ANTERIOR INFARCT , AGE UNDETERMINED ABNORMAL ECG WHEN COMPARED WITH ECG OF 01-MAY-2017 09:24, BORDERLINE CRITERIA FOR ANTERIOR INFARCT ARE NOW PRESENT NONSPECIFIC T WAVE ABNORMALITY NOW EVIDENT IN INFERIOR LEADS NONSPECIFIC T WAVE ABNORMALITY NOW EVIDENT IN ANTERIOR LEADS Confirmed by CHIN INGRAM, MARYAM ([id number]) on 10/08/2018 12:03:50 PM Referred By: Confirmed By:MARYAM NEELY MD
--- NOTE | 2018-10-08 12:23 | PN ---
Teaching Attending Note Name of Resident: Adrian Joiner ATTENDING PHYSICIAN STATEMENT I saw and evaluated the patient. I reviewed the resident's note and discussed the case with the resident. I agree with the resident's findings and plan as documented. SUBJECTIVE: Patient seen and examined in the ICU. Remains intubated and sedated. AC Mode of vent, 40% FiO2, PEEP 10. No pressors. Pplat: 24 / flow loops: Obstructive pattern OBJECTIVE: Intake & Output 10/05/18 10/06/18 10/07/18 10/08/18 23:59 23:59 23:59 23:59 Intake Total 2119 1050 Output Total 380 200 Balance 1739 850 Weight 404 lb 12.299 oz Last Vital Signs Temp Pulse Resp BP Pulse Ox 98.4 F 74 20 111/59 L 98 10/08/18 10:00 10/08/18 10:00 10/08/18 11:42 10/08/18 10:00 10/08/18 11:50 Active Medications Albuterol Sulfate (Ventolin 0.083% Nebulizer Soln -) 1 amp NEB Q4H PRN PRN Reason: SHORT OF BREATH/WHEEZING Albuterol/Ipratropium (Duoneb -) 1 amp NEB RQID WAYNE Last Admin: 10/08/18 11:30 Dose: 1 amp Heparin Sodium (Porcine) (Heparin -) 5,000 unit SQ TID WAYNE Last Admin: 10/08/18 05:25 Dose: 5,000 unit Propofol (Diprivan -) 1,000,000 mcg in 100 mls @ 2.52 mls/hr IVPB TITR WAYNE; Protocol Last Admin: 10/07/18 13:19 Dose: 5 mcg/kg/min, 4.2 mls/hr Fentanyl 500 mcg/ Dextrose 100 mls @ 30 mls/hr IVPB TITR WAYNE Stop: 10/08/18 14:29 Last Titration: 10/08/18 06:41 Dose: 100 mcg/hr, 20 mls/hr Dopamine HCl/Dextrose (Dopamine 400 Mg/D5w -) 400,000 mcg in 250 mls @ 26.25 mls/hr IVPB TITR WAYNE; Protocol Last Titration: 10/07/18 18:30 Dose: 0 mcg/kg/min, 0 mls/hr Midazolam HCl 100 mg/ Sodium (Chloride) 100 mls @ 1 mls/hr IVPB TITR WAYNE; Protocol Last Admin: 10/07/18 19:30 Dose: 5 mg/hr, 5 mls/hr Meropenem 1 gm/ Dextrose 100 mls @ 200 mls/hr IVPB Q8H-IV WAYNE Last Admin: 10/08/18 10:10 Dose: 200 mls/hr Fluconazole (Diflucan 100 Mg/D5w Premixed Ivpb -) 50 mls @ 100 mls/hr IVPB DAILY WAYNE Last Admin: 10/08/18 10:10 Dose: 100 mls/hr Vancomycin HCl 2,000 mg/ (Dextrose) 500 mls @ 250 mls/hr IVPB Q24H WAYNE; Protocol Insulin Aspart (Novolog Vial Sliding Scale -) 1 vial SQ ACHS WAYNE; Protocol Last Admin: 10/08/18 06:40 Dose: 10 units Methylprednisolone Sodium Succinate (Solu-Medrol -) 60 mg IVPUSH Q8H-IV WAYNE Last Admin: 10/08/18 10:07 Dose: 60 mg Pantoprazole Sodium (Protonix Iv) 40 mg IVPUSH DAILY WAYNE Last Admin: 10/08/18 10:07 Dose: 40 mg Gen: intubated, sedated Heart: RRR Lung: Bilateral scattered rhonchi, (+) expiratory wheeze Abd: soft, obese Ext: + edema Laboratory Results - last 24 hr 10/07/18 10/07/18 10/07/18 08:30 12:07 17:00 WBC RBC Hgb Hct MCV MCH MCHC RDW Plt Count MPV Absolute Neuts (auto) Neutrophils % Neutrophils % (Manual) Band Neutrophils % Lymphocytes % Lymphocytes % (Manual) Monocytes % Monocytes % (Manual) Eosinophils % Eosinophils % (Manual) Basophils % Basophils % (Manual) Myelocytes % (Man) Promyelocytes % (Man) Blast Cells % (Manual) Nucleated RBC % Metamyelocytes Hypochromia 1+ Platelet Estimate Normal Platelet Comment Polychromasia 2+ Poikilocytosis 1+ Anisocytosis 1+ Microcytosis 1+ Macrocytosis 0 Spherocytes Tear Drop Cells 1+ Ovalocytes Anticoagulation Therapy Puncture Site Patient Temperature ABG pH ABG pCO2 at Pt Temp ABG pO2 at Pt Temp ABG HCO3 ABG O2 Sat (Measured) ABG O2 Content ABG Base Excess Gama Test O2 Delivery Device Oxygen Flow Rate Vent Mode Vent Rate Mechanical Rate PEEP Pressure Support Vent Sodium Potassium Chloride Carbon Dioxide Anion Gap BUN Creatinine Creat Clearance w eGFR POC Glucometer Random Glucose Serum Osmolality Lactic Acid 2.4 H* Calcium Phosphorus Magnesium Total Bilirubin AST ALT Alkaline Phosphatase Troponin I Cancelled Total Protein Albumin Vitamin B12 Serum Folate TSH Urine Osmolality Ur Random Sodium Ur Random Potassium Ur Random Chloride Urine Creatinine Vancomycin Pre-Dose Opiates Screen Methadone Screen Barbiturate Screen Phencyclidine Screen Ur Amphetamines Screen MDMA (Ecstasy) Screen Benzodiazepines Screen Cocaine Screen U Marijuana (THC) Screen Alcohol, Quantitative Influenza A (Rapid) Influenza B (Rapid) 10/07/18 10/07/18 10/07/18 17:00 17:00 17:00 WBC RBC Hgb Hct MCV MCH MCHC RDW Plt Count MPV Absolute Neuts (auto) Neutrophils % Neutrophils % (Manual) Band Neutrophils % Lymphocytes % Lymphocytes % (Manual) Monocytes % Monocytes % (Manual) Eosinophils % Eosinophils % (Manual) Basophils % Basophils % (Manual) Myelocytes % (Man) Promyelocytes % (Man) Blast Cells % (Manual) Nucleated RBC % Metamyelocytes Hypochromia Platelet Estimate Platelet Comment Polychromasia Poikilocytosis Anisocytosis Microcytosis Macrocytosis Spherocytes Tear Drop Cells Ovalocytes Anticoagulation Therapy Puncture Site Patient Temperature ABG pH ABG pCO2 at Pt Temp ABG pO2 at Pt Temp ABG HCO3 ABG O2 Sat (Measured) ABG O2 Content ABG Base Excess Gama Test O2 Delivery Device Oxygen Flow Rate Vent Mode Vent Rate Mechanical Rate PEEP Pressure Support Vent Sodium 142 Potassium 4.5 Chloride 104 Carbon Dioxide 28 Anion Gap 10 BUN 18 Creatinine 2.5 H Creat Clearance w eGFR 19.58 POC Glucometer Random Glucose 231 H Serum Osmolality 301 Lactic Acid Calcium 7.1 L Phosphorus Magnesium Total Bilirubin 0.5 AST 41 H ALT 22 Alkaline Phosphatase 64 Troponin I 0.10 H Total Protein 6.3 L Albumin 2.2 L Vitamin B12 440 Serum Folate 7 TSH 2.66 Urine Osmolality Ur Random Sodium Ur Random Potassium Ur Random Chloride Urine Creatinine Vancomycin Pre-Dose Opiates Screen Methadone Screen Barbiturate Screen Phencyclidine Screen Ur Amphetamines Screen MDMA (Ecstasy) Screen Benzodiazepines Screen Cocaine Screen U Marijuana (THC) Screen Alcohol, Quantitative < 3.0 Influenza A (Rapid) Negative Influenza B (Rapid) Negative 10/07/18 10/07/18 10/07/18 17:20 17:40 17:40 WBC RBC Hgb Hct MCV MCH MCHC RDW Plt Count MPV Absolute Neuts (auto) Neutrophils % Neutrophils % (Manual) Band Neutrophils % Lymphocytes % Lymphocytes % (Manual) Monocytes % Monocytes % (Manual) Eosinophils % Eosinophils % (Manual) Basophils % Basophils % (Manual) Myelocytes % (Man) Promyelocytes % (Man) Blast Cells % (Manual) Nucleated RBC % Metamyelocytes Hypochromia Platelet Estimate Platelet Comment Polychromasia Poikilocytosis Anisocytosis Microcytosis Macrocytosis Spherocytes Tear Drop Cells Ovalocytes Anticoagulation Therapy No Result Required. Puncture Site Right radial Patient Temperature ABG pH 7.28 L ABG pCO2 at Pt Temp 67.1 H* D ABG pO2 at Pt Temp 179.0 H* ABG HCO3 30.5 H ABG O2 Sat (Measured) 98.9 ABG O2 Content 14.4 L ABG Base Excess 3.0 H Gama Test Positive O2 Delivery Device Mec vent Oxygen Flow Rate 80 Vent Mode A/c Vent Rate 14 Mechanical Rate No Result Required. PEEP 10.0 Pressure Support Vent 500 Sodium Potassium Chloride Carbon Dioxide Anion Gap BUN Creatinine Creat Clearance w eGFR POC Glucometer Random Glucose Serum Osmolality Lactic Acid Calcium Phosphorus Magnesium Total Bilirubin AST ALT Alkaline Phosphatase Troponin I Total Protein Albumin Vitamin B12 Serum Folate TSH Urine Osmolality 347 Ur Random Sodium Ur Random Potassium Ur Random Chloride Urine Creatinine Vancomycin Pre-Dose Opiates Screen Negative Methadone Screen Negative Barbiturate Screen Negative Phencyclidine Screen Negative Ur Amphetamines Screen Negative MDMA (Ecstasy) Screen Negative Benzodiazepines Screen Negative Cocaine Screen Negative U Marijuana (THC) Screen Negative Alcohol, Quantitative Influenza A (Rapid) Influenza B (Rapid) 10/07/18 10/07/18 10/07/18 17:40 17:40 17:40 WBC RBC Hgb Hct MCV MCH MCHC RDW Plt Count MPV Absolute Neuts (auto) Neutrophils % Neutrophils % (Manual) Band Neutrophils % Lymphocytes % Lymphocytes % (Manual) Monocytes % Monocytes % (Manual) Eosinophils % Eosinophils % (Manual) Basophils % Basophils % (Manual) Myelocytes % (Man) Promyelocytes % (Man) Blast Cells % (Manual) Nucleated RBC % Metamyelocytes Hypochromia Platelet Estimate Platelet Comment Polychromasia Poikilocytosis Anisocytosis Microcytosis Macrocytosis Spherocytes Tear Drop Cells Ovalocytes Anticoagulation Therapy Puncture Site Patient Temperature ABG pH ABG pCO2 at Pt Temp ABG pO2 at Pt Temp ABG HCO3 ABG O2 Sat (Measured) ABG O2 Content ABG Base Excess Gama Test O2 Delivery Device Oxygen Flow Rate Vent Mode Vent Rate Mechanical Rate PEEP Pressure Support Vent Sodium Cancelled Potassium Cancelled Chloride Cancelled Carbon Dioxide Cancelled Anion Gap Cancelled BUN Creatinine Creat Clearance w eGFR POC Glucometer Random Glucose Serum Osmolality Lactic Acid Calcium Phosphorus Magnesium Total Bilirubin AST ALT Alkaline Phosphatase Troponin I Total Protein Albumin Vitamin B12 Serum Folate TSH Urine Osmolality Ur Random Sodium 33 L Ur Random Potassium Ur Random Chloride Urine Creatinine 361.0 H Vancomycin Pre-Dose Opiates Screen Methadone Screen Barbiturate Screen Phencyclidine Screen Ur Amphetamines Screen MDMA (Ecstasy) Screen Benzodiazepines Screen Cocaine Screen U Marijuana (THC) Screen Alcohol, Quantitative Influenza A (Rapid) Influenza B (Rapid) 10/07/18 10/07/18 10/07/18 17:40 20:30 21:15 WBC RBC Hgb Hct MCV MCH MCHC RDW Plt Count MPV Absolute Neuts (auto) Neutrophils % Neutrophils % (Manual) Band Neutrophils % Lymphocytes % Lymphocytes % (Manual) Monocytes % Monocytes % (Manual) Eosinophils % Eosinophils % (Manual) Basophils % Basophils % (Manual) Myelocytes % (Man) Promyelocytes % (Man) Blast Cells % (Manual) Nucleated RBC % Metamyelocytes Hypochromia Platelet Estimate Platelet Comment Polychromasia Poikilocytosis Anisocytosis Microcytosis Macrocytosis Spherocytes Tear Drop Cells Ovalocytes Anticoagulation Therapy Puncture Site Patient Temperature ABG pH ABG pCO2 at Pt Temp ABG pO2 at Pt Temp ABG HCO3 ABG O2 Sat (Measured) ABG O2 Content ABG Base Excess Gama Test O2 Delivery Device Oxygen Flow Rate Vent Mode Vent Rate Mechanical Rate PEEP Pressure Support Vent Sodium Potassium Chloride Carbon Dioxide Anion Gap BUN Creatinine Creat Clearance w eGFR POC Glucometer [phone] Random Glucose Serum Osmolality Lactic Acid 1.9 Calcium Phosphorus Magnesium Total Bilirubin AST ALT Alkaline Phosphatase Troponin I Total Protein Albumin Vitamin B12 Serum Folate TSH Urine Osmolality Ur Random Sodium 34 L Ur Random Potassium 43.6 Ur Random Chloride 35 L Urine Creatinine Vancomycin Pre-Dose Opiates Screen Methadone Screen Barbiturate Screen Phencyclidine Screen Ur Amphetamines Screen MDMA (Ecstasy) Screen Benzodiazepines Screen Cocaine Screen U Marijuana (THC) Screen Alcohol, Quantitative Influenza A (Rapid) Influenza B (Rapid) 10/07/18 10/08/18 10/08/18 22:15 00:05 02:00 WBC RBC Hgb Hct MCV MCH MCHC RDW Plt Count MPV Absolute Neuts (auto) Neutrophils % Neutrophils % (Manual) Band Neutrophils % Lymphocytes % Lymphocytes % (Manual) Monocytes % Monocytes % (Manual) Eosinophils % Eosinophils % (Manual) Basophils % Basophils % (Manual) Myelocytes % (Man) Promyelocytes % (Man) Blast Cells % (Manual) Nucleated RBC % Metamyelocytes Hypochromia Platelet Estimate Platelet Comment Polychromasia Poikilocytosis Anisocytosis Microcytosis Macrocytosis Spherocytes Tear Drop Cells Ovalocytes Anticoagulation Therapy No Result Required. Puncture Site Right radial Patient Temperature 100.1 ABG pH 7.44 D ABG pCO2 at Pt Temp 43.8 D ABG pO2 at Pt Temp 121.0 H D ABG HCO3 29.0 H ABG O2 Sat (Measured) 98.3 ABG O2 Content 15.6 ABG Base Excess 4.7 H Gama Test Positive O2 Delivery Device No Result Required. Oxygen Flow Rate 60 Vent Mode No Result Required. Vent Rate 20 Mechanical Rate No Result Required. PEEP 10.0 Pressure Support Vent 500 Sodium 138 Potassium 4.8 Chloride 101 Carbon Dioxide 29 Anion Gap 8 BUN 20 H Creatinine 2.0 H Creat Clearance w eGFR 25.33 POC Glucometer Random Glucose 275 H Serum Osmolality Lactic Acid Calcium 7.6 L Phosphorus 3.2 Magnesium 1.9 Total Bilirubin 0.6 AST 44 H ALT 23 Alkaline Phosphatase 66 Troponin I 0.06 H Total Protein 6.7 Albumin 2.1 L Vitamin B12 Serum Folate TSH Urine Osmolality Ur Random Sodium Ur Random Potassium Ur Random Chloride Urine Creatinine Vancomycin Pre-Dose Opiates Screen Methadone Screen Barbiturate Screen Phencyclidine Screen Ur Amphetamines Screen MDMA (Ecstasy) Screen Benzodiazepines Screen Cocaine Screen U Marijuana (THC) Screen Alcohol, Quantitative Influenza A (Rapid) Influenza B (Rapid) 10/08/18 10/08/18 10/08/18 05:16 06:00 07:57 WBC RBC Hgb Hct MCV MCH MCHC RDW Plt Count MPV Absolute Neuts (auto) Neutrophils % Neutrophils % (Manual) Band Neutrophils % Lymphocytes % Lymphocytes % (Manual) Monocytes % Monocytes % (Manual) Eosinophils % Eosinophils % (Manual) Basophils % Basophils % (Manual) Myelocytes % (Man) Promyelocytes % (Man) Blast Cells % (Manual) Nucleated RBC % Metamyelocytes Hypochromia Platelet Estimate Platelet Comment Polychromasia Poikilocytosis Anisocytosis Microcytosis Macrocytosis Spherocytes Tear Drop Cells Ovalocytes Anticoagulation Therapy Puncture Site Right radial Patient Temperature ABG pH 7.42 ABG pCO2 at Pt Temp 43.3 ABG pO2 at Pt Temp 133.0 H ABG HCO3 27.3 H ABG O2 Sat (Measured) 98.8 ABG O2 Content 13.4 L ABG Base Excess 3.0 H Gama Test Positive O2 Delivery Device Vent Oxygen Flow Rate 60 Vent Mode Vent Rate 20 Mechanical Rate PEEP 10.0 Pressure Support Vent 500 Sodium Potassium Chloride Carbon Dioxide Anion Gap BUN Creatinine Creat Clearance w eGFR POC Glucometer [phone] Random Glucose Serum Osmolality Lactic Acid Calcium Phosphorus Magnesium Total Bilirubin AST ALT Alkaline Phosphatase Troponin I Total Protein Albumin Vitamin B12 Serum Folate TSH Urine Osmolality Ur Random Sodium Ur Random Potassium Ur Random Chloride Urine Creatinine Vancomycin Pre-Dose 11.2 L Opiates Screen Methadone Screen Barbiturate Screen Phencyclidine Screen Ur Amphetamines Screen MDMA (Ecstasy) Screen Benzodiazepines Screen Cocaine Screen U Marijuana (THC) Screen Alcohol, Quantitative Influenza A (Rapid) Influenza B (Rapid) 10/08/18 10/08/18 10/08/18 07:57 07:57 10:50 WBC 16.3 H RBC 4.61 Hgb 9.8 L Hct 32.6 MCV 70.7 L MCH 21.3 L MCHC 30.1 L RDW 20.7 H Plt Count 249 D MPV 9.7 Absolute Neuts (auto) 14.9 H Neutrophils % 91.8 H D Neutrophils % (Manual) 95.0 H Band Neutrophils % 0.0 Lymphocytes % 5.7 L D Lymphocytes % (Manual) 3.0 L Monocytes % 2.1 L Monocytes % (Manual) 2 L Eosinophils % 0.1 D Eosinophils % (Manual) 0.0 Basophils % 0.3 Basophils % (Manual) 0.0 Myelocytes % (Man) 0 Promyelocytes % (Man) 0 Blast Cells % (Manual) 0 Nucleated RBC % 1 H Metamyelocytes 0 Hypochromia 1+ Platelet Estimate Normal Platelet Comment Present Polychromasia 1+ Poikilocytosis 1+ Anisocytosis 1+ Microcytosis 0 Macrocytosis 0 Spherocytes 1+ Tear Drop Cells 1+ Ovalocytes 1+ Anticoagulation Therapy Puncture Site Patient Temperature ABG pH ABG pCO2 at Pt Temp ABG pO2 at Pt Temp ABG HCO3 ABG O2 Sat (Measured) ABG O2 Content ABG Base Excess Gama Test O2 Delivery Device Oxygen Flow Rate Vent Mode Vent Rate Mechanical Rate PEEP Pressure Support Vent Sodium 138 Potassium 4.7 Chloride 102 Carbon Dioxide 27 Anion Gap 10 BUN 23 H Creatinine 1.6 H Creat Clearance w eGFR 32.77 POC Glucometer [phone] Random Glucose 309 H* Serum Osmolality Lactic Acid Calcium 7.7 L Phosphorus Magnesium 2.1 Total Bilirubin 0.5 AST 35 ALT 22 Alkaline Phosphatase 67 Troponin I Total Protein 6.7 Albumin 2.1 L Vitamin B12 Serum Folate TSH Urine Osmolality Ur Random Sodium Ur Random Potassium Ur Random Chloride Urine Creatinine Vancomycin Pre-Dose Opiates Screen Methadone Screen Barbiturate Screen Phencyclidine Screen Ur Amphetamines Screen MDMA (Ecstasy) Screen Benzodiazepines Screen Cocaine Screen U Marijuana (THC) Screen Alcohol, Quantitative Influenza A (Rapid) Influenza B (Rapid) CXR: Mild central pulmonary vascular congestion ASSESSMENT AND PLAN: Acute on Chronic Hypoxic and Hypercapneic Respiratory Failure Suspect Right Heart Failure Volume Overload Acute on Chronic Diastolic Heart Failure Acute Asthma Exacerbation r/o Pneumonia Sepsis Lactic Acidosis +Troponins likely Demand Ischemia Acute Kidney Injury Morbid Obesity Obstructive Sleep Apnea/Obesity Hypoventilation Syndrome HTN DM h/o DVT - Medrol - inhaled bronchodilators standing and PRN - empiric antibiotics - f/u cultures - Would minimize IVF if hemodynamics are stable - monitor urine output, creatinine - ECHO - Follow ABG - Sedation vacations - Cam start SBTs later today if obstructive pattern is improved - DVT/GI prophylaxis - ICU monitoring Dr Caldwell Critical care time spent in reviewing chart, evaluating patient and formulating plan 35 min
--- NOTE | 2018-10-08 12:28 | PN ---
Physical Exam: SUBJECTIVE: Patient seen and examined at bedside. Intubated and sedated at time of encounter. OBJECTIVE: Vital Signs Period Temp Pulse Resp BP Sys/Jones Pulse Ox Last 24 Hr 98.4 F-100.4 F 74-123 14-22 85-138/50-98 98-100 GENERAL: Intubated and sedated HEAD: NC/AT EYES: PERRL ENT: dry mucous membranes NECK: Trachea midline, could not assess JVD d/t habitus/positioning LUNGS: b/l crackles, wheezing HEART: RRR no m/r/g ABDOMEN: distant bowel sounds, soft, obese, no pain response to deep palpation EXTREMITIES: 2+ pulses, warm, well-perfused, b/l 2+ pitting edema NEUROLOGICAL: could not assess under sedation PSYCH: could not assess SKIN: Warm, dry, normal turgor, stasis rashes Laboratory Results - last 24 hr 10/07/18 10/07/18 10/07/18 08:30 12:07 17:00 WBC RBC Hgb Hct MCV MCH MCHC RDW Plt Count MPV Absolute Neuts (auto) Neutrophils % Neutrophils % (Manual) Band Neutrophils % Lymphocytes % Lymphocytes % (Manual) Monocytes % Monocytes % (Manual) Eosinophils % Eosinophils % (Manual) Basophils % Basophils % (Manual) Myelocytes % (Man) Promyelocytes % (Man) Blast Cells % (Manual) Nucleated RBC % Metamyelocytes Hypochromia 1+ Platelet Estimate Normal Platelet Comment Polychromasia 2+ Poikilocytosis 1+ Anisocytosis 1+ Microcytosis 1+ Macrocytosis 0 Spherocytes Tear Drop Cells 1+ Ovalocytes Anticoagulation Therapy Puncture Site Patient Temperature ABG pH ABG pCO2 at Pt Temp ABG pO2 at Pt Temp ABG HCO3 ABG O2 Sat (Measured) ABG O2 Content ABG Base Excess Gama Test O2 Delivery Device Oxygen Flow Rate Vent Mode Vent Rate Mechanical Rate PEEP Pressure Support Vent Sodium Potassium Chloride Carbon Dioxide Anion Gap BUN Creatinine Creat Clearance w eGFR POC Glucometer Random Glucose Serum Osmolality Lactic Acid 2.4 H* Calcium Phosphorus Magnesium Total Bilirubin AST ALT Alkaline Phosphatase Troponin I Cancelled Total Protein Albumin Vitamin B12 Serum Folate TSH Urine Osmolality Ur Random Sodium Ur Random Potassium Ur Random Chloride Urine Creatinine Vancomycin Pre-Dose Opiates Screen Methadone Screen Barbiturate Screen Phencyclidine Screen Ur Amphetamines Screen MDMA (Ecstasy) Screen Benzodiazepines Screen Cocaine Screen U Marijuana (THC) Screen Alcohol, Quantitative Influenza A (Rapid) Influenza B (Rapid) 10/07/18 10/07/18 10/07/18 17:00 17:00 17:00 WBC RBC Hgb Hct MCV MCH MCHC RDW Plt Count MPV Absolute Neuts (auto) Neutrophils % Neutrophils % (Manual) Band Neutrophils % Lymphocytes % Lymphocytes % (Manual) Monocytes % Monocytes % (Manual) Eosinophils % Eosinophils % (Manual) Basophils % Basophils % (Manual) Myelocytes % (Man) Promyelocytes % (Man) Blast Cells % (Manual) Nucleated RBC % Metamyelocytes Hypochromia Platelet Estimate Platelet Comment Polychromasia Poikilocytosis Anisocytosis Microcytosis Macrocytosis Spherocytes Tear Drop Cells Ovalocytes Anticoagulation Therapy Puncture Site Patient Temperature ABG pH ABG pCO2 at Pt Temp ABG pO2 at Pt Temp ABG HCO3 ABG O2 Sat (Measured) ABG O2 Content ABG Base Excess Gama Test O2 Delivery Device Oxygen Flow Rate Vent Mode Vent Rate Mechanical Rate PEEP Pressure Support Vent Sodium 142 Potassium 4.5 Chloride 104 Carbon Dioxide 28 Anion Gap 10 BUN 18 Creatinine 2.5 H Creat Clearance w eGFR 19.58 POC Glucometer Random Glucose 231 H Serum Osmolality 301 Lactic Acid Calcium 7.1 L Phosphorus Magnesium Total Bilirubin 0.5 AST 41 H ALT 22 Alkaline Phosphatase 64 Troponin I 0.10 H Total Protein 6.3 L Albumin 2.2 L Vitamin B12 440 Serum Folate 7 TSH 2.66 Urine Osmolality Ur Random Sodium Ur Random Potassium Ur Random Chloride Urine Creatinine Vancomycin Pre-Dose Opiates Screen Methadone Screen Barbiturate Screen Phencyclidine Screen Ur Amphetamines Screen MDMA (Ecstasy) Screen Benzodiazepines Screen Cocaine Screen U Marijuana (THC) Screen Alcohol, Quantitative < 3.0 Influenza A (Rapid) Negative Influenza B (Rapid) Negative 10/07/18 10/07/18 10/07/18 17:20 17:40 17:40 WBC RBC Hgb Hct MCV MCH MCHC RDW Plt Count MPV Absolute Neuts (auto) Neutrophils % Neutrophils % (Manual) Band Neutrophils % Lymphocytes % Lymphocytes % (Manual) Monocytes % Monocytes % (Manual) Eosinophils % Eosinophils % (Manual) Basophils % Basophils % (Manual) Myelocytes % (Man) Promyelocytes % (Man) Blast Cells % (Manual) Nucleated RBC % Metamyelocytes Hypochromia Platelet Estimate Platelet Comment Polychromasia Poikilocytosis Anisocytosis Microcytosis Macrocytosis Spherocytes Tear Drop Cells Ovalocytes Anticoagulation Therapy No Result Required. Puncture Site Right radial Patient Temperature ABG pH 7.28 L ABG pCO2 at Pt Temp 67.1 H* D ABG pO2 at Pt Temp 179.0 H* ABG HCO3 30.5 H ABG O2 Sat (Measured) 98.9 ABG O2 Content 14.4 L ABG Base Excess 3.0 H Gama Test Positive O2 Delivery Device Mec vent Oxygen Flow Rate 80 Vent Mode A/c Vent Rate 14 Mechanical Rate No Result Required. PEEP 10.0 Pressure Support Vent 500 Sodium Potassium Chloride Carbon Dioxide Anion Gap BUN Creatinine Creat Clearance w eGFR POC Glucometer Random Glucose Serum Osmolality Lactic Acid Calcium Phosphorus Magnesium Total Bilirubin AST ALT Alkaline Phosphatase Troponin I Total Protein Albumin Vitamin B12 Serum Folate TSH Urine Osmolality 347 Ur Random Sodium Ur Random Potassium Ur Random Chloride Urine Creatinine Vancomycin Pre-Dose Opiates Screen Negative Methadone Screen Negative Barbiturate Screen Negative Phencyclidine Screen Negative Ur Amphetamines Screen Negative MDMA (Ecstasy) Screen Negative Benzodiazepines Screen Negative Cocaine Screen Negative U Marijuana (THC) Screen Negative Alcohol, Quantitative Influenza A (Rapid) Influenza B (Rapid) 10/07/18 10/07/18 10/07/18 17:40 17:40 17:40 WBC RBC Hgb Hct MCV MCH MCHC RDW Plt Count MPV Absolute Neuts (auto) Neutrophils % Neutrophils % (Manual) Band Neutrophils % Lymphocytes % Lymphocytes % (Manual) Monocytes % Monocytes % (Manual) Eosinophils % Eosinophils % (Manual) Basophils % Basophils % (Manual) Myelocytes % (Man) Promyelocytes % (Man) Blast Cells % (Manual) Nucleated RBC % Metamyelocytes Hypochromia Platelet Estimate Platelet Comment Polychromasia Poikilocytosis Anisocytosis Microcytosis Macrocytosis Spherocytes Tear Drop Cells Ovalocytes Anticoagulation Therapy Puncture Site Patient Temperature ABG pH ABG pCO2 at Pt Temp ABG pO2 at Pt Temp ABG HCO3 ABG O2 Sat (Measured) ABG O2 Content ABG Base Excess Gama Test O2 Delivery Device Oxygen Flow Rate Vent Mode Vent Rate Mechanical Rate PEEP Pressure Support Vent Sodium Cancelled Potassium Cancelled Chloride Cancelled Carbon Dioxide Cancelled Anion Gap Cancelled BUN Creatinine Creat Clearance w eGFR POC Glucometer Random Glucose Serum Osmolality Lactic Acid Calcium Phosphorus Magnesium Total Bilirubin AST ALT Alkaline Phosphatase Troponin I Total Protein Albumin Vitamin B12 Serum Folate TSH Urine Osmolality Ur Random Sodium 33 L Ur Random Potassium Ur Random Chloride Urine Creatinine 361.0 H Vancomycin Pre-Dose Opiates Screen Methadone Screen Barbiturate Screen Phencyclidine Screen Ur Amphetamines Screen MDMA (Ecstasy) Screen Benzodiazepines Screen Cocaine Screen U Marijuana (THC) Screen Alcohol, Quantitative Influenza A (Rapid) Influenza B (Rapid) 10/07/18 10/07/18 10/07/18 17:40 20:30 21:15 WBC RBC Hgb Hct MCV MCH MCHC RDW Plt Count MPV Absolute Neuts (auto) Neutrophils % Neutrophils % (Manual) Band Neutrophils % Lymphocytes % Lymphocytes % (Manual) Monocytes % Monocytes % (Manual) Eosinophils % Eosinophils % (Manual) Basophils % Basophils % (Manual) Myelocytes % (Man) Promyelocytes % (Man) Blast Cells % (Manual) Nucleated RBC % Metamyelocytes Hypochromia Platelet Estimate Platelet Comment Polychromasia Poikilocytosis Anisocytosis Microcytosis Macrocytosis Spherocytes Tear Drop Cells Ovalocytes Anticoagulation Therapy Puncture Site Patient Temperature ABG pH ABG pCO2 at Pt Temp ABG pO2 at Pt Temp ABG HCO3 ABG O2 Sat (Measured) ABG O2 Content ABG Base Excess Gama Test O2 Delivery Device Oxygen Flow Rate Vent Mode Vent Rate Mechanical Rate PEEP Pressure Support Vent Sodium Potassium Chloride Carbon Dioxide Anion Gap BUN Creatinine Creat Clearance w eGFR POC Glucometer [phone] Random Glucose Serum Osmolality Lactic Acid 1.9 Calcium Phosphorus Magnesium Total Bilirubin AST ALT Alkaline Phosphatase Troponin I Total Protein Albumin Vitamin B12 Serum Folate TSH Urine Osmolality Ur Random Sodium 34 L Ur Random Potassium 43.6 Ur Random Chloride 35 L Urine Creatinine Vancomycin Pre-Dose Opiates Screen Methadone Screen Barbiturate Screen Phencyclidine Screen Ur Amphetamines Screen MDMA (Ecstasy) Screen Benzodiazepines Screen Cocaine Screen U Marijuana (THC) Screen Alcohol, Quantitative Influenza A (Rapid) Influenza B (Rapid) 10/07/18 10/08/18 10/08/18 22:15 00:05 02:00 WBC RBC Hgb Hct MCV MCH MCHC RDW Plt Count MPV Absolute Neuts (auto) Neutrophils % Neutrophils % (Manual) Band Neutrophils % Lymphocytes % Lymphocytes % (Manual) Monocytes % Monocytes % (Manual) Eosinophils % Eosinophils % (Manual) Basophils % Basophils % (Manual) Myelocytes % (Man) Promyelocytes % (Man) Blast Cells % (Manual) Nucleated RBC % Metamyelocytes Hypochromia Platelet Estimate Platelet Comment Polychromasia Poikilocytosis Anisocytosis Microcytosis Macrocytosis Spherocytes Tear Drop Cells Ovalocytes Anticoagulation Therapy No Result Required. Puncture Site Right radial Patient Temperature 100.1 ABG pH 7.44 D ABG pCO2 at Pt Temp 43.8 D ABG pO2 at Pt Temp 121.0 H D ABG HCO3 29.0 H ABG O2 Sat (Measured) 98.3 ABG O2 Content 15.6 ABG Base Excess 4.7 H Gama Test Positive O2 Delivery Device No Result Required. Oxygen Flow Rate 60 Vent Mode No Result Required. Vent Rate 20 Mechanical Rate No Result Required. PEEP 10.0 Pressure Support Vent 500 Sodium 138 Potassium 4.8 Chloride 101 Carbon Dioxide 29 Anion Gap 8 BUN 20 H Creatinine 2.0 H Creat Clearance w eGFR 25.33 POC Glucometer Random Glucose 275 H Serum Osmolality Lactic Acid Calcium 7.6 L Phosphorus 3.2 Magnesium 1.9 Total Bilirubin 0.6 AST 44 H ALT 23 Alkaline Phosphatase 66 Troponin I 0.06 H Total Protein 6.7 Albumin 2.1 L Vitamin B12 Serum Folate TSH Urine Osmolality Ur Random Sodium Ur Random Potassium Ur Random Chloride Urine Creatinine Vancomycin Pre-Dose Opiates Screen Methadone Screen Barbiturate Screen Phencyclidine Screen Ur Amphetamines Screen MDMA (Ecstasy) Screen Benzodiazepines Screen Cocaine Screen U Marijuana (THC) Screen Alcohol, Quantitative Influenza A (Rapid) Influenza B (Rapid) 10/08/18 10/08/18 10/08/18 05:16 06:00 07:57 WBC RBC Hgb Hct MCV MCH MCHC RDW Plt Count MPV Absolute Neuts (auto) Neutrophils % Neutrophils % (Manual) Band Neutrophils % Lymphocytes % Lymphocytes % (Manual) Monocytes % Monocytes % (Manual) Eosinophils % Eosinophils % (Manual) Basophils % Basophils % (Manual) Myelocytes % (Man) Promyelocytes % (Man) Blast Cells % (Manual) Nucleated RBC % Metamyelocytes Hypochromia Platelet Estimate Platelet Comment Polychromasia Poikilocytosis Anisocytosis Microcytosis Macrocytosis Spherocytes Tear Drop Cells Ovalocytes Anticoagulation Therapy Puncture Site Right radial Patient Temperature ABG pH 7.42 ABG pCO2 at Pt Temp 43.3 ABG pO2 at Pt Temp 133.0 H ABG HCO3 27.3 H ABG O2 Sat (Measured) 98.8 ABG O2 Content 13.4 L ABG Base Excess 3.0 H Gama Test Positive O2 Delivery Device Vent Oxygen Flow Rate 60 Vent Mode Vent Rate 20 Mechanical Rate PEEP 10.0 Pressure Support Vent 500 Sodium Potassium Chloride Carbon Dioxide Anion Gap BUN Creatinine Creat Clearance w eGFR POC Glucometer [phone] Random Glucose Serum Osmolality Lactic Acid Calcium Phosphorus Magnesium Total Bilirubin AST ALT Alkaline Phosphatase Troponin I Total Protein Albumin Vitamin B12 Serum Folate TSH Urine Osmolality Ur Random Sodium Ur Random Potassium Ur Random Chloride Urine Creatinine Vancomycin Pre-Dose 11.2 L Opiates Screen Methadone Screen Barbiturate Screen Phencyclidine Screen Ur Amphetamines Screen MDMA (Ecstasy) Screen Benzodiazepines Screen Cocaine Screen U Marijuana (THC) Screen Alcohol, Quantitative Influenza A (Rapid) Influenza B (Rapid) 10/08/18 10/08/18 10/08/18 07:57 07:57 10:50 WBC 16.3 H RBC 4.61 Hgb 9.8 L Hct 32.6 MCV 70.7 L MCH 21.3 L MCHC 30.1 L RDW 20.7 H Plt Count 249 D MPV 9.7 Absolute Neuts (auto) 14.9 H Neutrophils % 91.8 H D Neutrophils % (Manual) 95.0 H Band Neutrophils % 0.0 Lymphocytes % 5.7 L D Lymphocytes % (Manual) 3.0 L Monocytes % 2.1 L Monocytes % (Manual) 2 L Eosinophils % 0.1 D Eosinophils % (Manual) 0.0 Basophils % 0.3 Basophils % (Manual) 0.0 Myelocytes % (Man) 0 Promyelocytes % (Man) 0 Blast Cells % (Manual) 0 Nucleated RBC % 1 H Metamyelocytes 0 Hypochromia 1+ Platelet Estimate Normal Platelet Comment Present Polychromasia 1+ Poikilocytosis 1+ Anisocytosis 1+ Microcytosis 0 Macrocytosis 0 Spherocytes 1+ Tear Drop Cells 1+ Ovalocytes 1+ Anticoagulation Therapy Puncture Site Patient Temperature ABG pH ABG pCO2 at Pt Temp ABG pO2 at Pt Temp ABG HCO3 ABG O2 Sat (Measured) ABG O2 Content ABG Base Excess Gama Test O2 Delivery Device Oxygen Flow Rate Vent Mode Vent Rate Mechanical Rate PEEP Pressure Support Vent Sodium 138 Potassium 4.7 Chloride 102 Carbon Dioxide 27 Anion Gap 10 BUN 23 H Creatinine 1.6 H Creat Clearance w eGFR 32.77 POC Glucometer [phone] Random Glucose 309 H* Serum Osmolality Lactic Acid Calcium 7.7 L Phosphorus Magnesium 2.1 Total Bilirubin 0.5 AST 35 ALT 22 Alkaline Phosphatase 67 Troponin I Total Protein 6.7 Albumin 2.1 L Vitamin B12 Serum Folate TSH Urine Osmolality Ur Random Sodium Ur Random Potassium Ur Random Chloride Urine Creatinine Vancomycin Pre-Dose Opiates Screen Methadone Screen Barbiturate Screen Phencyclidine Screen Ur Amphetamines Screen MDMA (Ecstasy) Screen Benzodiazepines Screen Cocaine Screen U Marijuana (THC) Screen Alcohol, Quantitative Influenza A (Rapid) Influenza B (Rapid) Active Medications Generic Name Dose Route Start Last Admin Trade Name Freq PRN Reason Stop Dose Admin Albuterol Sulfate 1 amp 10/07/18 15:40 Ventolin 0.083% Nebulizer Soln - NEB Q4H PRN SHORT OF BREATH/WHEEZING Albuterol/Ipratropium 1 amp 10/07/18 20:00 10/08/18 11:30 Duoneb - NEB 1 amp RQID [facility] Administration Heparin Sodium (Porcine) 5,000 unit 10/07/18 15:30 10/08/18 05:25 Heparin - SQ 5,000 unit TID [facility] Administration Propofol 1,000,000 mcg in 100 mls @ 2.52 mls/hr 10/07/18 11:00 10/07/18 13:19 Diprivan - IVPB 5 mcg/kg/min TITR [facility] 4.2 mls/hr Administration Protocol 3 MCG/KG/MIN Fentanyl 500 mcg/ Dextrose 100 mls @ 30 mls/hr 10/07/18 14:30 10/08/18 06:41 IVPB 10/08/18 14:29 100 mcg/hr TITR [facility] 20 mls/hr Titration 150 MCG/HR Dopamine HCl/Dextrose 400,000 mcg in 250 mls @ 26.25 mls/hr 10/07/18 16:30 18:30 Dopamine 400 Mg/D5w - IVPB 0 mcg/kg/min TITR [facility] 0 mls/hr Titration Protocol 5 MCG/KG/MIN Midazolam HCl 100 mg/ Sodium 100 mls @ 1 mls/hr 10/07/18 16:30 10/07/18 19:30 Chloride IVPB 5 mg/hr TITR [facility] 5 mls/hr Administration Protocol 1 MG/HR Meropenem 1 gm/ Dextrose 100 mls @ 200 mls/hr 10/07/18 16:47 10/08/18 10:10 IVPB 200 mls/hr Q8H-IV [facility] Administration Fluconazole 50 mls @ 100 mls/hr 10/07/18 17:33 10/08/18 10:10 Diflucan 100 Mg/D5w Premixed Ivpb - IVPB 100 mls/hr DAILY [facility] Administration Vancomycin HCl 2,000 mg/ 500 mls @ 250 mls/hr 10/08/18 10:30 Dextrose IVPB Q24H [facility] Protocol Insulin Aspart 1 vial 10/07/18 22:00 10/08/18 06:40 Novolog Vial Sliding Scale - SQ 10 units ACHS [facility] Administration Protocol Methylprednisolone Sodium Succinate 60 mg 10/07/18 18:45 10/08/18 10:07 Solu-Medrol - IVPUSH 60 mg Q8H-IV [facility] Administration Pantoprazole Sodium 40 mg 10/08/18 10:00 10/08/18 10:07 Protonix Iv IVPUSH 40 mg DAILY [facility] Administration ASSESSMENT/PLAN: 63 y/o F w/ PMHx DM, asthma, HTN, dCHF, GERD, DVT, morbid obesity, anemia, fibroids, w/AMS in acute hypoxic hypercapnic respiratory distress and was intubated in ED, admitted to ICU. #CV -required dopamine after hypotension 2/2 propofol, now off pressors and maintaining MAP -hold anti-hypertensives -troponin downtrending, was likely elevated by demand ischemia -cardiology consulted, Dr. Craig following -no IVF at this time #pulm -ABG improved to 7.42/43.3/133/27.3 -cont medrol 60q8 -cont bronchodilators standing and PRN -will consider sedation wean tomorrow -CXR suggests possible early stage ARDS physiology -TV appropriate for ideal body weight and plateau pressures w/in parameters -avoid excess fluids -f/u CXR, ABG #Neuro -AMS likely 2/2 toxic metabolic encephalopathy -cannot tolerate propofol d/t diastolic dysfunction -maintain sedation w/ midazolam/fentanyl #ID -Dr. Contreras following -cont meropenem, cont vancomycin titrated to trough levels -fluconazole for superficial fungal infection #nephro -JOEY improving, Cr 1.6 vs baseline 0.5 -likely pre-renal based on FENa -avoid nephrotoxic agents #endocrine -BGM, SSI #FEN -no standing IVF, receiving fluid through riders, will bolus PRN -monitor and correct electrolytes -NPO, will consider feeds tomorrow #PPx -DVT: heparin subq -GI: IV PTX #code -full -prognosis is guarded, will need clarification of GOC #dispo -cont to monitor in ICU Visit type - Emergency Visit Emergency Visit: No - New Patient This patient is new to me today: Yes Date on this admission: 10/08/18 - Critical Care Critical Care patient: Yes Total Critical Care Time (in minutes): 40 Critical Care Statement: The care of this patient involved high complexity decision making to prevent further life threatening deterioration of the patient 's condition and/or to evaluate & treat vital organ system(s) failure or risk of failure.
[2018-10-08] MEDS ORDERED: MIDAZOLAM 100 MG/100 ML MG IVPB ONE (16:50)
[2018-10-08] MEDS: MIDAZOLAM 100 MG in SODIUM CHLORIDE 100 ML IVPB SCH (17:09)
[2018-10-08] MEDS: FENTANYL INJECTION 500 MCG in DEXTROSE 5%-WATER - 90 ML IVPB SCH (18:30)
[2018-10-09] MEDS: MEROPENEM 1 GM in DEXTROSE 5%-WATER 100 ML IVPB SCH ×3 (01:33→17:07)
[2018-10-09] MEDS: methylPREDNISolone NA SUCC 40 MG/1 ML VIAL IVPUSH SCH ×2 (01:34→09:07)
[2018-10-09] MEDS ORDERED: fentaNYL CITRATE 250 MCG/5 ML VIAL ONE ×2 (05:32→21:33)
[2018-10-09] MEDS: HEPARIN NA (PORCINE) 5,000 UNITS/ML 1ML VIAL SQ SCH ×3 (05:34→21:31)
[2018-10-09 05:36] LABS: ARTERIAL BLD GAS O2 SATURATION 95.5 % (90-98.9); ARTERIAL BLOOD GAS BASE EXCESS 4.8 meq/l (-2-2); ARTERIAL BLOOD GAS PCO2 43.1 mmHg (35-45); ARTERIAL BLOOD GAS PO2 84.3 mmHg (80-100); ARTERIAL BLOOD GAS pH 7.44 (7.35-7.45)
[2018-10-09 05:37] LABS: ALLENS TEST POSITIVE
[2018-10-09] MEDS: INSULIN SLIDING SCALE (NOVOLOG) 1 VIAL SQ SCH ×4 (06:18→22:17)
[2018-10-09 06:53] LABS: BASO % 0.6 % (0-2.0); HEMATOCRIT 34.3 % (32.4-45.2); HEMOGLOBIN 9.7 GM/dL (10.7-15.3); LYMPH % 5.9 % (8-40); MCH 20.3 pg (25.7-33.7); MCHC 28.2 g/dl (32.0-36.0); MEAN CELL VOLUME 71.9 fl (80-96); MEAN PLT VOLUME 9.6 fl (7.5-11.1); MONO % 4.1 % (3.8-10.2); NEUT % 89.4 % (42.8-82.8); PLATELET COUNT 232 K/MM3 (134-434); RBC 4.77 M/mm3 (3.60-5.2); RDW 20.8 % (11.6-15.6); WHITE BLOOD COUNT 12.8 K/mm3 (4.0-10.0)
[2018-10-09] MEDS: ALBUTEROL SO4 2.5/IPRATROPIUM 0.5 INH SOL 3 ML VIAL.NEB. NEB SCH ×4 (07:25→20:05)
[2018-10-09 07:34] LABS: ALBUMIN 1.9 g/dl (3.4-5.0); ALK PHOS 60 U/L (45-117); ANION GAP 7 MMOL/L (8-16); BILIRUBIN,TOTAL 0.4 mg/dL (0.2-1); BLOOD UREA NITROGEN 28 mg/dL (7-18); CALCIUM 7.7 mg/dL (8.5-10.1); CHLORIDE 101 mmol/L (98-107); CO2 30 mmol/L (21-32); CREATININE 1.1 mg/dL (0.55-1.3); MAGNESIUM 2.1 mg/dL (1.8-2.4); PHOSPHOROUS 2.4 mg/dL (2.5-4.9); POTASSIUM 4.8 mmol/L (3.5-5.1); SGOT/AST 21 U/L (15-37); SGPT/ALT 21 U/L (13-61); SODIUM 138 mmol/L (136-145); TOT PROT 6.8 g/dl (6.4-8.2)
[2018-10-09 07:56] LABS: GLUCOSE,RANDOM 394 mg/dL (74-106)
[2018-10-09] MEDS ORDERED: PT OWN MED DRAWER 7, Y5N ONE ×3 (08:08→17:01)
[2018-10-09] MEDS: PANTOPRAZOLE SODIUM 40 MG VIAL IVPUSH SCH (09:06)
--- NOTE | 2018-10-09 09:13 | PN ---
Progress Note (short form) - Note Progress Note: Seen and examined in the ICU remains intubated: weaned fio2 30%, peep remains at 10 BP stable SCr improved Current Medications Albuterol Sulfate (Ventolin 0.083% Nebulizer Soln -) 1 amp NEB Q4H PRN PRN Reason: SHORT OF BREATH/WHEEZING Albuterol/Ipratropium (Duoneb -) 1 amp NEB RQID [facility] Last Admin: 10/09/18 07:25 Dose: 1 amp Heparin Sodium (Porcine) (Heparin -) 5,000 unit SQ TID [facility] Last Admin: 10/09/18 05:34 Dose: 5,000 unit Midazolam HCl 100 mg/ Sodium (Chloride) 100 mls @ 1 mls/hr IVPB TITR [facility]; Protocol Last Admin: 10/08/18 17:09 Dose: 5 mg/hr, 5 mls/hr Meropenem 1 gm/ Dextrose 100 mls @ 200 mls/hr IVPB Q8H-IV [facility] Last Admin: 10/09/18 01:33 Dose: 200 mls/hr Fluconazole (Diflucan 100 Mg/D5w Premixed Ivpb -) 50 mls @ 100 mls/hr IVPB DAILY [facility] Last Admin: 10/08/18 10:10 Dose: 100 mls/hr Vancomycin HCl 2,000 mg/ (Dextrose) 500 mls @ 250 mls/hr IVPB Q24H [facility]; Protocol Last Admin: 10/08/18 12:00 Dose: 250 mls/hr Fentanyl 500 mcg/ Dextrose 100 mls @ 20 mls/hr IVPB TITR [facility] Last Titration: 10/09/18 00:00 Dose: 100 mcg/hr, 20 mls/hr Insulin Aspart (Novolog Vial Sliding Scale -) 1 vial SQ ACHS [facility]; Protocol Last Admin: 10/09/18 06:18 Dose: 12 units Insulin Detemir (Levemir Vial) 35 units SQ HS [facility] Methylprednisolone Sodium Succinate (Solu-Medrol -) 60 mg IVPUSH Q8H-IV [facility] Last Admin: 10/09/18 01:34 Dose: 60 mg Pantoprazole Sodium (Protonix Iv) 40 mg IVPUSH DAILY [facility] Last Admin: 10/08/18 10:07 Dose: 40 mg Vital Signs Period Temp Pulse Resp BP Sys/Jones Pulse Ox Last 24 Hr 97.4 F-99.8 F 70-108 20-24 106-144/53-88 96-100 Intake & Output 10/06/18 10/07/18 10/08/18 10/09/18 23:59 23:59 23:59 23:59 Intake Total 2119 2200 400 Output Total 380 900 300 Balance 1739 1300 100 Weight 183.6 kg Exam: General: intubated and sedated Pulm: diminished bilateral CV: distant s1, s2 Abd: obese, SNTND Ext: LE tense edema Neuro: RASS -5, PERRL CBC, BMP 10/09/18 05:30 10/09/18 05:30 Microbiology 10/07/18 08:25 Blood - Peripheral Venous Blood Culture - Preliminary Presumptive Mssa (Pbp2a Neg) 10/07/18 08:25 Blood - Peripheral Venous Blood Culture - Preliminary Presumptive Mssa (Pbp2a Neg) 10/07/18 17:00 Sputum - Endotrachea Suction/Ventilator Gram Stain - Final 10/07/18 20:30 Urine For Antigen Detection Legionella Antigen - Final 10/07/18 20:30 Urine For Antigen Detection Streptococcus pneumoniae Antigen (M - Final 10/07/18 08:25 Urine - Urine Clean Catch Urine Culture - Final NO GROWTH OBTAINED ASSESSMENT AND PLAN: Acute on Chronic Hypoxic and Hypercapneic Respiratory Failure Suspect Right Heart Failure Volume Overload Acute on Chronic Diastolic Heart Failure Acute Asthma Exacerbation r/o Pneumonia Sepsis Lactic Acidosis +Troponins likely Demand Ischemia Acute Kidney Injury Morbid Obesity Obstructive Sleep Apnea/Obesity Hypoventilation Syndrome HTN DM h/o DVT - Medrol wean to pred 40mg for 5 day course (home dose 2.5mg daily) - inhaled bronchodilators standing and PRN - empiric antibiotics, likely MSSA bactermia w/ skin source. narrow per ID - resent blood cultures today to ensure clearance - volume overloaded given CXR and edema. will attempt diuresis - monitor urine output, creatinine - daily ABG - Sedation vacations - daily SBTs - DVT/GI prophylaxis - ICU monitoring Boerem
--- NOTE | 2018-10-09 09:19 | PN ---
Progress Note (short form) - Note Progress Note: remains intubated fio2 40% bp is improved Vital Signs Period Temp Pulse Resp BP Sys/Jones Pulse Ox Last 24 Hr 97.4 F-99.8 F 70-108 20-24 106-144/53-88 96-100 cor-rrr lungs decreased bs at bases abd soft,nt +pannus ext no edema CBC, BMP 10/09/18 05:30 10/09/18 05:30 Microbiology 10/07/18 08:25 Blood - Peripheral Venous Blood Culture - Preliminary Presumptive Mssa (Pbp2a Neg) 10/07/18 08:25 Blood - Peripheral Venous Blood Culture - Preliminary Presumptive Mssa (Pbp2a Neg) 10/07/18 17:00 Sputum - Endotrachea Suction/Ventilator Gram Stain - Final 10/07/18 20:30 Urine For Antigen Detection Legionella Antigen - Final 10/07/18 20:30 Urine For Antigen Detection Streptococcus pneumoniae Antigen (M - Final 10/07/18 08:25 Urine - Urine Clean Catch Urine Culture - Final NO GROWTH OBTAINED Active Medications Albuterol Sulfate (Ventolin 0.083% Nebulizer Soln -) 1 amp NEB Q4H PRN PRN Reason: SHORT OF BREATH/WHEEZING Albuterol/Ipratropium (Duoneb -) 1 amp NEB RQID [facility] Last Admin: 10/09/18 07:25 Dose: 1 amp Heparin Sodium (Porcine) (Heparin -) 5,000 unit SQ TID [facility] Last Admin: 10/09/18 05:34 Dose: 5,000 unit Midazolam HCl 100 mg/ Sodium (Chloride) 100 mls @ 1 mls/hr IVPB TITR [facility]; Protocol Last Titration: 10/09/18 09:08 Dose: 0 mg/hr, 0 mls/hr Meropenem 1 gm/ Dextrose 100 mls @ 200 mls/hr IVPB Q8H-IV [facility] Last Admin: 10/09/18 09:06 Dose: 200 mls/hr Fluconazole (Diflucan 100 Mg/D5w Premixed Ivpb -) 50 mls @ 100 mls/hr IVPB DAILY [facility] Last Admin: 10/08/18 10:10 Dose: 100 mls/hr Vancomycin HCl 2,000 mg/ (Dextrose) 500 mls @ 250 mls/hr IVPB Q24H [facility]; Protocol Last Admin: 10/08/18 12:00 Dose: 250 mls/hr Fentanyl 500 mcg/ Dextrose 100 mls @ 20 mls/hr IVPB TITR [facility] Last Titration: 10/09/18 09:08 Dose: 0 mcg/hr, 0 mls/hr Insulin Aspart (Novolog Vial Sliding Scale -) 1 vial SQ ACHS [facility]; Protocol Last Admin: 10/09/18 06:18 Dose: 12 units Insulin Detemir (Levemir Vial) 35 units SQ HS [facility] Pantoprazole Sodium (Protonix Iv) 40 mg IVPUSH DAILY [facility] Last Admin: 10/09/18 09:06 Dose: 40 mg cxray no infiltrate noted today a/p bacteremia- continue vancomycin given zosyn allergy repeat blood cultures today trans thoracic echo unrevealing suspect skin source acute hypercapneic respiratory failure morbid obesity JOEY -resolved zosyn allergy IVF continue meropenem vancomycin f/u cultures/labs taper antibiotics in am d/w [employer] hemodynamically stable Problem List - Problems (1) Sepsis Code(s): A41.9 - SEPSIS, UNSPECIFIED ORGANISM Qualifiers: Qualified Code(s): A41.9 - Sepsis, unspecified organism (2) Respiratory failure with hypercapnia Code(s): J96.92 - RESPIRATORY FAILURE, UNSPECIFIED WITH HYPERCAPNIA (3) Morbid obesity Code(s): E66.01 - MORBID (SEVERE) OBESITY DUE TO EXCESS CALORIES (4) JOEY (acute kidney injury) Code(s): N17.9 - ACUTE KIDNEY FAILURE, UNSPECIFIED
[2018-10-09] MEDS ORDERED: FUROSEMIDE 40 MG/4 ML INJECTABLE VIAL IVPUSH ONE (09:22)
[2018-10-09] MEDS: FLUCONAZOLE 100 MG/D5W 50 ML IVPB SCH (09:43)
[2018-10-09] MEDS: predniSONE 20 MG TABLET (UD) PO SCH (10:05)
--- NOTE | 2018-10-09 10:16 | PN ---
Progress Note, Physician - Current Medication List Current Medications: Active Medications Albuterol Sulfate (Ventolin 0.083% Nebulizer Soln -) 1 amp NEB Q4H PRN PRN Reason: SHORT OF BREATH/WHEEZING Albuterol/Ipratropium (Duoneb -) 1 amp NEB RQID [facility] Last Admin: 10/09/18 07:25 Dose: 1 amp Heparin Sodium (Porcine) (Heparin -) 5,000 unit SQ TID [facility] Last Admin: 10/09/18 05:34 Dose: 5,000 unit Midazolam HCl 100 mg/ Sodium (Chloride) 100 mls @ 1 mls/hr IVPB TITR [facility]; Protocol Last Titration: 10/09/18 09:08 Dose: 0 mg/hr, 0 mls/hr Meropenem 1 gm/ Dextrose 100 mls @ 200 mls/hr IVPB Q8H-IV [facility] Last Admin: 10/09/18 09:06 Dose: 200 mls/hr Fluconazole (Diflucan 100 Mg/D5w Premixed Ivpb -) 50 mls @ 100 mls/hr IVPB DAILY [facility] Last Admin: 10/09/18 09:43 Dose: 100 mls/hr Vancomycin HCl 2,000 mg/ (Dextrose) 500 mls @ 250 mls/hr IVPB Q24H [facility]; Protocol Last Admin: 10/08/18 12:00 Dose: 250 mls/hr Fentanyl 500 mcg/ Dextrose 100 mls @ 20 mls/hr IVPB TITR [facility] Last Titration: 10/09/18 09:08 Dose: 0 mcg/hr, 0 mls/hr Insulin Aspart (Novolog Vial Sliding Scale -) 1 vial SQ ACHS [facility]; Protocol Last Admin: 10/09/18 06:18 Dose: 12 units Insulin Detemir (Levemir Vial) 35 units SQ HS [facility] Pantoprazole Sodium (Protonix Iv) 40 mg IVPUSH DAILY [facility] Last Admin: 10/09/18 09:06 Dose: 40 mg Prednisone (Deltasone -) 40 mg PO DAILY [facility] Stop: 10/13/18 10:01 Last Admin: 10/09/18 10:05 Dose: 40 mg - Objective Vital Signs: Vital Signs Temperature 99 F 10/09/18 06:00 Pulse Rate 86 10/09/18 08:31 Respiratory Rate 20 10/09/18 08:31 Blood Pressure 144/88 10/09/18 06:00 O2 Sat by Pulse Oximetry (%) 100 10/09/18 08:31 Eyes: Yes: WNL, Conjunctiva Clear, EOM Intact HENT: Yes: WNL, Atraumatic, Normocephalic Neck: Yes: WNL, Supple, Trachea Midline Cardiovascular: Yes: WNL, Regular Rate and Rhythm Respiratory: Yes: WNL, Diminished, Intubated, Mechanically Ventilated Gastrointestinal: Yes: WNL, Normal Bowel Sounds Genitourinary: Yes: WNL Musculoskeletal: Yes: WNL Extremities: Yes: WNL Edema: No Integumentary: Yes: WNL Neurological: Yes: Other (sedated) ...Motor Strength: WNL Psychiatric: Yes: WNL Labs: CBC, BMP 10/09/18 05:30 10/09/18 05:30 INR, PTT INR 1.42 (0.83-1.09) H 10/07/18 08:30 Assessment/Plan - Problems (1) Sleep apnea Code(s): G47.30 - SLEEP APNEA, UNSPECIFIED (2) Acute on chronic diastolic CHF (congestive heart failure) Assessment/Plan: Elevated BNP; + JVP. CXR: bilateral pleural effusion. BP stable - to be diuresed as tolerates Hx diastolic CHF; f/u today's ECHO. F/u BUN/Cr, electrolytes, daily weight, Is and Os. Code(s): I50.33 - ACUTE ON CHRONIC DIASTOLIC (CONGESTIVE) HEART FAILURE (3) Morbid obesity Code(s): E66.01 - MORBID (SEVERE) OBESITY DUE TO EXCESS CALORIES (4) [place] cardiac risk >20% in next 10 years Assessment/Plan: aggressive control of lipids (f/u lipid panel; TSH) and glucose. Coronary artery evaluation when stable (stress MIBI). Code(s): Z91.89 - OTH PERSONAL RISK FACTORS, NOT ELSEWHERE CLASSIFIED (5) Elevated troponin Assessment/Plan: mildly increased TNI (0.07), with normal CKMB. Normal EKG. Likely demand ischemia from sepsis, CHF, respiratory failure. F/u TNI and EKG serially. Stress MIBI when stable. Code(s): R74.8 - ABNORMAL LEVELS OF OTHER SERUM ENZYMES (6) Sepsis Assessment/Plan: Leukocytosis; febrile. Likely PNA. Antibiotics per ID; f/u cultures. Code(s): A41.9 - SEPSIS, UNSPECIFIED ORGANISM Qualifiers: Sepsis type: sepsis due to unspecified organism Qualified Code(s): A41.9 - Sepsis, unspecified organism Assessment/Plan CCU time spent: 35 minutes.
[2018-10-09] MEDS: VANCOMYCIN 2,000 MG in DEXTROSE 5%-WATER - 500 ML IVPB SCH (11:23)
[2018-10-09] MEDS ORDERED: HEMOQUE TEST 1 EACH EACH ONE (11:31)
--- NOTE | 2018-10-09 15:24 | PN ---
Progress Note (short form) - Note Progress Note: patient seen and examined in ICU and mother at bedside current management discussed with family patient intubated / awake / nodes to questions appropriately Fio2 at 30% with 98% sat Intake & Output 10/06/18 10/07/18 10/08/18 10/09/18 23:59 23:59 23:59 23:59 Intake Total 2119 2200 400 Output Total 996 072 1096 Balance 1739 1300 -600 Weight 404 lb 12.299 oz 404 lb Vital Signs Period Temp Pulse Resp BP Sys/Jones Pulse Ox Last 24 Hr 98.9 F-99.8 F 86-108 20-36 109-145/53-88 96-100 morbidly obese female intubated awake alert heart S1/S2 lungs grossly clear no wheezing obese abdomen ext ++ edema with chronic changes CBC, BMP 10/09/18 05:30 10/09/18 05:30 Microbiology 10/07/18 17:00 Sputum - Endotrachea Suction/Ventilator Gram Stain - Final 10/07/18 17:00 Sputum - Endotrachea Suction/Ventilator Sputum Culture - Preliminary NORMAL RESPIRATORY DIOR 10/07/18 08:25 Blood - Peripheral Venous Blood Culture - Preliminary Presumptive Mssa (Pbp2a Neg) 10/07/18 08:25 Blood - Peripheral Venous Blood Culture - Preliminary Presumptive Mssa (Pbp2a Neg) 10/07/18 20:30 Urine For Antigen Detection Legionella Antigen - Final 10/07/18 20:30 Urine For Antigen Detection Streptococcus pneumoniae Antigen (M - Final 10/07/18 08:25 Urine - Urine Clean Catch Urine Culture - Final NO GROWTH OBTAINED Active Medications Albuterol Sulfate (Ventolin 0.083% Nebulizer Soln -) 1 amp NEB Q4H PRN PRN Reason: SHORT OF BREATH/WHEEZING Albuterol/Ipratropium (Duoneb -) 1 amp NEB RQID [facility] Last Admin: 10/09/18 11:30 Dose: 1 amp Heparin Sodium (Porcine) (Heparin -) 5,000 unit SQ TID [facility] Last Admin: 10/09/18 14:07 Dose: 5,000 unit Midazolam HCl 100 mg/ Sodium (Chloride) 100 mls @ 1 mls/hr IVPB TITR [facility]; Protocol Last Titration: 10/09/18 15:15 Dose: 2 mg/hr, 2 mls/hr Meropenem 1 gm/ Dextrose 100 mls @ 200 mls/hr IVPB Q8H-IV [facility] Last Admin: 10/09/18 09:06 Dose: 200 mls/hr Fluconazole (Diflucan 100 Mg/D5w Premixed Ivpb -) 50 mls @ 100 mls/hr IVPB DAILY [facility] Last Admin: 10/09/18 09:43 Dose: 100 mls/hr Vancomycin HCl 2,000 mg/ (Dextrose) 500 mls @ 250 mls/hr IVPB Q24H [facility]; Protocol Last Admin: 10/09/18 11:23 Dose: 250 mls/hr Fentanyl 500 mcg/ Dextrose 100 mls @ 20 mls/hr IVPB TITR [facility] Last Titration: 10/09/18 15:15 Dose: 50 mcg/hr, 10 mls/hr Insulin Aspart (Novolog Vial Sliding Scale -) 1 vial SQ ACHS [facility]; Protocol Last Admin: 10/09/18 11:31 Dose: 12 units Insulin Detemir (Levemir Vial) 35 units SQ HS [facility] Pantoprazole Sodium (Protonix Iv) 40 mg IVPUSH DAILY [facility] Last Admin: 10/09/18 09:06 Dose: 40 mg Prednisone (Deltasone -) 40 mg PO DAILY [facility] Stop: 10/13/18 10:01 Last Admin: 10/09/18 10:05 Dose: 40 mg 63 yo female w/ pmh of HTN, asthma, diastolic CHF, GERD, prior lower extremity DVT, morbid obesity, DM, anemia, abdominal fibroid, BIBA for evaluation of 1 day history of altered mental status. Patient required intubation in ER due to acute hypoxic / hypercapneic respiratory failure, after intubation became hypotensive requiring fluid resuscitation and pressor for support. She is currently off pressors but remains intubated. # acute on chronic resp failure hypoxic / hypercapneic / LYLY with hypoventilation/ HFpEF / Asthma intubated -- now on 30% FO2 PEEP10 bilat pleural effusions -- volume overload continue lasix / nebulizer/ steroids IV / PPi # Sepsis r/o pna lactic acidosis emperic abx - appreciate ID # DM sliding scale # HTN adjust meds as needed # CAD elevated TNI -- demand ischemia trend
[2018-10-09] MEDS: MIDAZOLAM 100 MG in SODIUM CHLORIDE 100 ML IVPB SCH (16:30)
[2018-10-09] MEDS: FENTANYL INJECTION 500 MCG in DEXTROSE 5%-WATER - 90 ML IVPB SCH (21:36)
[2018-10-09] MEDS ORDERED: INSULIN (LEVEMIR) 100 UNITS/ML UNITS SQ SCH (22:00)
[2018-10-10] MEDS ORDERED: fentaNYL CITRATE 250 MCG/5 ML VIAL ONE ×4 (02:47→20:52)
[2018-10-10] MEDS: MEROPENEM 1 GM in DEXTROSE 5%-WATER 100 ML IVPB SCH ×2 (02:55→09:18)
[2018-10-10] MEDS: FENTANYL INJECTION 500 MCG in DEXTROSE 5%-WATER - 90 ML IVPB SCH ×2 (02:55→20:12)
[2018-10-10] MEDS ORDERED: MIDAZOLAM 100 MG/100 ML MG IVPB ONE (04:04)
[2018-10-10 06:53] LABS: ARTERIAL BLD GAS O2 SATURATION 96.6 % (90-98.9); ARTERIAL BLOOD GAS BASE EXCESS 6.3 meq/l (-2-2); ARTERIAL BLOOD GAS PO2 92.6 mmHg (80-100); ARTERIAL BLOOD GAS pH 7.43 (7.35-7.45)
[2018-10-10] MEDS: ALBUTEROL SO4 2.5/IPRATROPIUM 0.5 INH SOL 3 ML VIAL.NEB. NEB SCH ×4 (06:59→20:08)
[2018-10-10 07:09] LABS: ANION GAP 10 MMOL/L (8-16); BLOOD UREA NITROGEN 35 mg/dL (7-18); CHLORIDE 97 mmol/L (98-107); CO2 31 mmol/L (21-32); CREATININE 1.1 mg/dL (0.55-1.3); MAGNESIUM 2.4 mg/dL (1.8-2.4); PHOSPHOROUS 2.9 mg/dL (2.5-4.9); POTASSIUM 4.7 mmol/L (3.5-5.1); SODIUM 138 mmol/L (136-145)
[2018-10-10 07:15] LABS: GLUCOSE,RANDOM 466 mg/dL (74-106)
[2018-10-10] MEDS: HEPARIN NA (PORCINE) 5,000 UNITS/ML 1ML VIAL SQ SCH ×3 (07:17→21:04)
[2018-10-10] MEDS: INSULIN SLIDING SCALE (NOVOLOG) 1 VIAL SQ SCH ×2 (07:19→20:09)
[2018-10-10] MEDS ORDERED: INSULIN REGULAR HUMAN 100 UNITS/ML *VIAL ONE (07:44)
[2018-10-10] MEDS ORDERED: INSULIN REGULAR 100 UNITS in SODIUM CHLORIDE 99 ML IVPB SCH (08:00)
[2018-10-10 08:11] LABS: HEMATOCRIT 33.3 % (32.4-45.2); HEMOGLOBIN 10.1 GM/dL (10.7-15.3); MCH 21.7 pg (25.7-33.7); MCHC 30.4 g/dl (32.0-36.0); MEAN CELL VOLUME 71.3 fl (80-96); MEAN PLT VOLUME 9.9 fl (7.5-11.1); PLATELET COUNT 253 K/MM3 (134-434); RBC 4.67 M/mm3 (3.60-5.2); RDW 21.2 % (11.6-15.6); WHITE BLOOD COUNT 10.7 K/mm3 (4.0-10.0)
[2018-10-10] MEDS ORDERED: PT OWN MED DRAWER 7, Y5N ONE ×4 (08:24→18:21)
[2018-10-10] MEDS: PANTOPRAZOLE SODIUM 40 MG VIAL IVPUSH SCH (09:18)
[2018-10-10] MEDS: predniSONE 20 MG TABLET (UD) PO SCH (09:18)
--- NOTE | 2018-10-10 09:37 | PN ---
Progress Note, Physician History of Present Illness: seen and examined in ICU - Current Medication List Current Medications: Active Medications Albuterol Sulfate (Ventolin 0.083% Nebulizer Soln -) 1 amp NEB Q4H PRN PRN Reason: SHORT OF BREATH/WHEEZING Albuterol/Ipratropium (Duoneb -) 1 amp NEB RQID [facility] Last Admin: 10/10/18 06:59 Dose: 1 amp Heparin Sodium (Porcine) (Heparin -) 5,000 unit SQ TID [facility] Last Admin: 10/10/18 07:17 Dose: 5,000 unit Midazolam HCl 100 mg/ Sodium (Chloride) 100 mls @ 1 mls/hr IVPB TITR [facility]; Protocol Last Titration: 10/10/18 04:00 Dose: 2 mg/hr, 2 mls/hr Meropenem 1 gm/ Dextrose 100 mls @ 200 mls/hr IVPB Q8H-IV [facility] Last Admin: 10/10/18 09:18 Dose: 200 mls/hr Fluconazole (Diflucan 100 Mg/D5w Premixed Ivpb -) 50 mls @ 100 mls/hr IVPB DAILY [facility] Last Admin: 10/09/18 09:43 Dose: 100 mls/hr Vancomycin HCl 2,000 mg/ (Dextrose) 500 mls @ 250 mls/hr IVPB Q24H [facility]; Protocol Last Admin: 10/09/18 11:23 Dose: 250 mls/hr Fentanyl 500 mcg/ Dextrose 100 mls @ 20 mls/hr IVPB TITR [facility] Last Admin: 10/10/18 02:55 Dose: 100 mcg/hr, 20 mls/hr Insulin Human Regular 100 (units/ Sodium Chloride) 100 mls @ 18.46 mls/hr IVPB TITR [facility]; Protocol Last Admin: 10/10/18 08:45 Dose: 0.1 units/kg/hr, 18.46 mls/hr Pantoprazole Sodium (Protonix Iv) 40 mg IVPUSH DAILY [facility] Last Admin: 10/10/18 09:18 Dose: 40 mg Prednisone (Deltasone -) 40 mg PO DAILY [facility] Stop: 10/13/18 10:01 Last Admin: 10/10/18 09:18 Dose: 40 mg - Objective Vital Signs: Vital Signs Temperature 98.4 F 10/10/18 06:00 Pulse Rate 88 10/10/18 08:00 Respiratory Rate 20 10/10/18 08:00 Blood Pressure 155/76 10/10/18 08:00 O2 Sat by Pulse Oximetry (%) 97 10/09/18 22:00 Eyes: Yes: WNL, Conjunctiva Clear, EOM Intact HENT: Yes: WNL, Atraumatic, Normocephalic Neck: Yes: WNL, Supple, Trachea Midline Cardiovascular: Yes: WNL, Regular Rate and Rhythm Respiratory: Yes: Diminished, Intubated, Mechanically Ventilated Gastrointestinal: Yes: WNL, Normal Bowel Sounds Genitourinary: Yes: WNL Musculoskeletal: Yes: WNL Extremities: Yes: WNL Edema: Yes Edema: LLE: 2+, RLE: 2+ Integumentary: Yes: WNL Neurological: Yes: WNL, Alert, Oriented ...Motor Strength: WNL Psychiatric: Yes: WNL Labs: CBC, BMP 10/10/18 05:30 10/10/18 05:30 INR, PTT INR 1.42 (0.83-1.09) H 10/07/18 08:30 Assessment/Plan - Problems (1) Sleep apnea Code(s): G47.30 - SLEEP APNEA, UNSPECIFIED (2) Acute on chronic diastolic CHF (congestive heart failure) Assessment/Plan: Elevated BNP; CXR: bilateral pleural effusion. BP stable - to be diuresed by ICU team as tolerates Hx diastolic CHF F/u BUN/Cr, electrolytes, daily weight, Is and Os. Code(s): I50.33 - ACUTE ON CHRONIC DIASTOLIC (CONGESTIVE) HEART FAILURE (3) Morbid obesity Code(s): E66.01 - MORBID (SEVERE) OBESITY DUE TO EXCESS CALORIES (4) [place] cardiac risk >20% in next 10 years Assessment/Plan: aggressive control of lipids (f/u lipid panel; TSH) and glucose. Coronary artery evaluation when stable (stress MIBI). Code(s): Z91.89 - OTH PERSONAL RISK FACTORS, NOT ELSEWHERE CLASSIFIED (5) Elevated troponin Assessment/Plan: mildly increased TNI (0.07), with normal CKMB. Normal EKG. Likely demand ischemia from sepsis, CHF, respiratory failure. F/u TNI and EKG serially. Stress MIBI when stable. Code(s): R74.8 - ABNORMAL LEVELS OF OTHER SERUM ENZYMES (6) Sepsis Assessment/Plan: Leukocytosis;improving Likely PNA. Antibiotics per ID; f/u cultures. Code(s): A41.9 - SEPSIS, UNSPECIFIED ORGANISM Qualifiers: Sepsis type: sepsis due to unspecified organism Qualified Code(s): A41.9 - Sepsis, unspecified organism Assessment/Plan CCU time spent: 36 minutes.
--- NOTE | 2018-10-10 09:48 | PN ---
Progress Note (short form) - Note Progress Note: Seen and examined in the ICU Sedation holiday restarted at 50% of previous dose Placed on PSV 10/10 w/ Tv 200's, tolerated PSV 15/10 for 4hrs then became tachypnic and tachycardic received lasix for volume overload repeat blood cultures sent started TFs Current Medications Albuterol Sulfate (Ventolin 0.083% Nebulizer Soln -) 1 amp NEB Q4H PRN PRN Reason: SHORT OF BREATH/WHEEZING Albuterol/Ipratropium (Duoneb -) 1 amp NEB RQID [facility] Last Admin: 10/10/18 06:59 Dose: 1 amp Heparin Sodium (Porcine) (Heparin -) 5,000 unit SQ TID [facility] Last Admin: 10/10/18 07:17 Dose: 5,000 unit Midazolam HCl 100 mg/ Sodium (Chloride) 100 mls @ 1 mls/hr IVPB TITR [facility]; Protocol Last Titration: 10/10/18 04:00 Dose: 2 mg/hr, 2 mls/hr Meropenem 1 gm/ Dextrose 100 mls @ 200 mls/hr IVPB Q8H-IV [facility] Last Admin: 10/10/18 09:18 Dose: 200 mls/hr Fluconazole (Diflucan 100 Mg/D5w Premixed Ivpb -) 50 mls @ 100 mls/hr IVPB DAILY [facility] Last Admin: 10/09/18 09:43 Dose: 100 mls/hr Vancomycin HCl 2,000 mg/ (Dextrose) 500 mls @ 250 mls/hr IVPB Q24H [facility]; Protocol Last Admin: 10/09/18 11:23 Dose: 250 mls/hr Fentanyl 500 mcg/ Dextrose 100 mls @ 20 mls/hr IVPB TITR [facility] Last Admin: 10/10/18 02:55 Dose: 100 mcg/hr, 20 mls/hr Insulin Human Regular 100 (units/ Sodium Chloride) 100 mls @ 18.46 mls/hr IVPB TITR [facility]; Protocol Last Admin: 10/10/18 08:45 Dose: 0.1 units/kg/hr, 18.46 mls/hr Pantoprazole Sodium (Protonix Iv) 40 mg IVPUSH DAILY [facility] Last Admin: 10/10/18 09:18 Dose: 40 mg Prednisone (Deltasone -) 40 mg PO DAILY [facility] Stop: 10/13/18 10:01 Last Admin: 10/10/18 09:18 Dose: 40 mg Vital Signs Period Temp Pulse Resp BP Sys/Jones Pulse Ox Last 24 Hr 98.1 F-99.0 F 71-98 20-36 122-155/63-81 97-99 Intake & Output 10/07/18 10/08/18 10/09/18 10/10/18 23:59 23:59 23:59 23:59 Intake Total 2119 2200 1467 534 Output Total 006 639 7596 Balance 1739 1300 -133 534 Weight 183.6 kg 183.251 kg 184.657 kg Exam: General: morbidly obese, intubated Pulm: diminished bilateral CV: distant s1, s2 Abd: obese, SNTND Ext: LE tense edema Neuro: RASS -0, PERRL. following commands ABG Results ABG pH 7.43 (7.35-7.45) 10/10/18 06:30 ABG pCO2 at Pt Temp 47.0 mmHg (35-45) H 10/10/18 06:30 ABG pO2 at Pt Temp 92.6 mmHg (80-100) 10/10/18 06:30 ABG HCO3 31.0 meq/L (22-26) H 10/10/18 06:30 ABG O2 Sat (Measured) 96.6 % (90-98.9) 10/10/18 06:30 ABG O2 Content 13.3 % vol (15-22) L 10/10/18 06:30 ABG Base Excess 6.3 meq/l (-2-2) H 10/10/18 06:30 CBC, BMP 10/10/18 05:30 10/10/18 05:30 CXR: unchanged low lung volumes Microbiology 10/07/18 08:25 Blood - Peripheral Venous Blood Culture - Final Staphylococcus Aureus 10/07/18 17:00 Sputum - Endotrachea Suction/Ventilator Gram Stain - Final 10/07/18 17:00 Sputum - Endotrachea Suction/Ventilator Sputum Culture - Preliminary NORMAL RESPIRATORY DIOR 10/07/18 08:25 Blood - Peripheral Venous Blood Culture - Preliminary Presumptive Mssa (Pbp2a Neg) 10/07/18 20:30 Urine For Antigen Detection Legionella Antigen - Final 10/07/18 20:30 Urine For Antigen Detection Streptococcus pneumoniae Antigen (M - Final 10/07/18 08:25 Urine - Urine Clean Catch Urine Culture - Final NO GROWTH OBTAINED ASSESSMENT AND PLAN: Acute on Chronic Hypoxic and Hypercapneic Respiratory Failure Suspect Right Heart Failure Volume Overload Acute on Chronic Diastolic Heart Failure Acute Asthma Exacerbation r/o Pneumonia Sepsis Lactic Acidosis +Troponins likely Demand Ischemia Acute Kidney Injury Morbid Obesity Obstructive Sleep Apnea/Obesity Hypoventilation Syndrome HTN DM h/o DVT - Pred 40mg for 5 day course (home dose 2.5mg daily) - inhaled bronchodilators standing and PRN - empiric antibiotics, likely MSSA bactermia w/ skin source. narrow per ID - f/u blood cultures to ensure clearance - volume overloaded given CXR and edema cont diuresis - monitor urine output, creatinine - daily ABG - Sedation vacations - daily SBTs (tolerating 02/02 this AM Tv 350 rr 20) - possible extubation, will extubate to HFNC with plan for NIPPV overnight - DVT/GI prophylaxis - ICU monitoring Bo[place]rem
[2018-10-10] MEDS ORDERED: FUROSEMIDE 40 MG/4 ML INJECTABLE VIAL IVPUSH ONE (09:49)
--- NOTE | 2018-10-10 10:00 | PN ---
Progress Note (short form) - Note Progress Note: remains intubated alert no complaints Vital Signs Period Temp Pulse Resp BP Sys/Jones Pulse Ox Last 24 Hr 98.1 F-99.0 F 71-98 20-36 122-155/63-81 97-99 cor-rrr lungs decreased bs at bases abd soft,nt +pannus ext no edema rash on back chronic and unchanged CBC, BMP 10/10/18 05:30 10/10/18 05:30 Microbiology 10/07/18 08:25 Blood - Peripheral Venous Blood Culture - Final Staphylococcus Aureus 10/07/18 17:00 Sputum - Endotrachea Suction/Ventilator Gram Stain - Final 10/07/18 17:00 Sputum - Endotrachea Suction/Ventilator Sputum Culture - Preliminary NORMAL RESPIRATORY DIOR 10/07/18 08:25 Blood - Peripheral Venous Blood Culture - Preliminary Presumptive Mssa (Pbp2a Neg) 10/07/18 20:30 Urine For Antigen Detection Legionella Antigen - Final 10/07/18 20:30 Urine For Antigen Detection Streptococcus pneumoniae Antigen (M - Final 10/07/18 08:25 Urine - Urine Clean Catch Urine Culture - Final NO GROWTH OBTAINED cxray no infiltrate noted today Current Medications Albuterol Sulfate (Ventolin 0.083% Nebulizer Soln -) 1 amp NEB Q4H PRN PRN Reason: SHORT OF BREATH/WHEEZING Albuterol/Ipratropium (Duoneb -) 1 amp NEB RQID [facility] Last Admin: 10/10/18 06:59 Dose: 1 amp Heparin Sodium (Porcine) (Heparin -) 5,000 unit SQ TID [facility] Last Admin: 10/10/18 07:17 Dose: 5,000 unit Midazolam HCl 100 mg/ Sodium (Chloride) 100 mls @ 1 mls/hr IVPB TITR [facility]; Protocol Last Titration: 10/10/18 04:00 Dose: 2 mg/hr, 2 mls/hr Meropenem 1 gm/ Dextrose 100 mls @ 200 mls/hr IVPB Q8H-IV [facility] Last Admin: 10/10/18 09:18 Dose: 200 mls/hr Fluconazole (Diflucan 100 Mg/D5w Premixed Ivpb -) 50 mls @ 100 mls/hr IVPB DAILY [facility] Last Admin: 10/09/18 09:43 Dose: 100 mls/hr Vancomycin HCl 2,000 mg/ (Dextrose) 500 mls @ 250 mls/hr IVPB Q24H [facility]; Protocol Last Admin: 10/09/18 11:23 Dose: 250 mls/hr Fentanyl 500 mcg/ Dextrose 100 mls @ 20 mls/hr IVPB TITR [facility] Last Admin: 10/10/18 02:55 Dose: 100 mcg/hr, 20 mls/hr Insulin Human Regular 100 (units/ Sodium Chloride) 100 mls @ 18.46 mls/hr IVPB TITR [facility]; Protocol Last Admin: 10/10/18 08:45 Dose: 0.1 units/kg/hr, 18.46 mls/hr Pantoprazole Sodium (Protonix Iv) 40 mg IVPUSH DAILY [facility] Last Admin: 10/10/18 09:18 Dose: 40 mg Prednisone (Deltasone -) 40 mg PO DAILY [facility] Stop: 10/13/18 10:01 Last Admin: 10/10/18 09:18 Dose: 40 mg a/p MSSA bacteremia- switch to cefazolin- trans thoracic echo unrevealing suspect skin source repeat blood cultures pending acute hypercapneic respiratory failure morbid obesity JOEY -resolved zosyn allergy 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
[2018-10-10] MEDS: FLUCONAZOLE 100 MG/D5W 50 ML IVPB SCH (10:46)
[2018-10-10] MEDS: CEFAZOLIN 3 GM in DEXTROSE 5%-WATER 100 ML IVPB SCH ×2 (11:18→18:22)
[2018-10-10] MEDS ORDERED: INSULIN REGULAR HUMAN 100 UNITS/ML *VIAL IVPUSH ONE ×2 (11:34→13:00)
[2018-10-10] MEDS ORDERED: CEFAZOLIN 2 GM/D5W 2 GM/50 ML ML IVPB SCH (12:00)
--- NOTE | 2018-10-10 14:44 | PN ---
Progress Note (short form) - Note Progress Note: patient seen and examined in ICU patient intubated / awake / nodes to questions appropriately Fio2 at 30% with 98% sat Intake & Output 10/07/18 10/08/18 10/09/18 10/10/18 23:59 23:59 23:59 23:59 Intake Total 2119 2200 1467 534 Output Total 182 494 8743 600 Balance 1739 1300 -133 -66 Weight 404 lb 12.299 oz 404 lb 407 lb 1.6 oz Vital Signs Period Temp Pulse Resp BP Sys/Jones Pulse Ox Last 24 Hr 98.1 F-99.0 F 71-98 20-36 122-162/63-80 97-99 morbidly obese female intubated awake alert heart S1/S2 lungs grossly clear no wheezing obese abdomen ext ++ edema with chronic changes CBC, BMP 10/10/18 05:30 10/10/18 05:30 CBC, BMP 10/09/18 05:30 10/09/18 05:30 Microbiology 10/08/18 15:30 Nares - Mrsa Screen - Left MRSA Screen - Preliminary Presumptive Mrsa (Pbp2a Pos) 10/07/18 17:00 Sputum - Endotrachea Suction/Ventilator Gram Stain - Final 10/07/18 17:00 Sputum - Endotrachea Suction/Ventilator Sputum Culture - Final NORMAL RESPIRATORY DIOR 10/09/18 11:35 Blood - Peripheral Venous Blood Culture - Preliminary NO GROWTH OBTAINED AFTER 24 HOURS, INCUBATION TO CONTINUE FOR 4 DAYS. 10/09/18 11:25 Blood - Peripheral Venous Blood Culture - Preliminary NO GROWTH OBTAINED AFTER 24 HOURS, INCUBATION TO CONTINUE FOR 4 DAYS. 10/08/18 15:30 Nares - Mrsa Screen - Right MRSA Screen - Final NO MRSA ISOLATED 10/07/18 08:25 Blood - Peripheral Venous Blood Culture - Final Presumptive Mssa (Pbp2a Neg) 10/07/18 08:25 Blood - Peripheral Venous Blood Culture - Final Staphylococcus Aureus 10/07/18 20:30 Urine For Antigen Detection Legionella Antigen - Final 10/07/18 20:30 Urine For Antigen Detection Streptococcus pneumoniae Antigen (M - Final 10/07/18 08:25 Urine - Urine Clean Catch Urine Culture - Final NO GROWTH OBTAINED Active Medications Albuterol Sulfate (Ventolin 0.083% Nebulizer Soln -) 1 amp NEB Q4H PRN PRN Reason: SHORT OF BREATH/WHEEZING Albuterol/Ipratropium (Duoneb -) 1 amp NEB RQID [facility] Last Admin: 10/10/18 11:45 Dose: 1 amp Heparin Sodium (Porcine) (Heparin -) 5,000 unit SQ TID [facility] Last Admin: 10/10/18 14:34 Dose: 5,000 unit Midazolam HCl 100 mg/ Sodium (Chloride) 100 mls @ 1 mls/hr IVPB TITR [facility]; Protocol Last Titration: 10/10/18 11:20 Dose: 3 mg/hr, 3 mls/hr Fluconazole (Diflucan 100 Mg/D5w Premixed Ivpb -) 50 mls @ 100 mls/hr IVPB DAILY [facility] Last Admin: 10/10/18 10:46 Dose: 100 mls/hr Fentanyl 500 mcg/ Dextrose 100 mls @ 20 mls/hr IVPB TITR [facility] Last Admin: 10/10/18 02:55 Dose: 100 mcg/hr, 20 mls/hr Insulin Human Regular 100 (units/ Sodium Chloride) 100 mls @ 18.46 mls/hr IVPB TITR [facility]; Protocol Last Admin: 10/10/18 08:45 Dose: 0.1 units/kg/hr, 18.46 mls/hr Cefazolin Sodium 3 gm/ (Dextrose) 100 mls @ 200 mls/hr IVPB Q8H-IV [facility] Last Admin: 10/10/18 11:18 Dose: 200 mls/hr Pantoprazole Sodium (Protonix Iv) 40 mg IVPUSH DAILY [facility] Last Admin: 10/10/18 09:18 Dose: 40 mg Prednisone (Deltasone -) 40 mg PO DAILY [facility] Stop: 10/13/18 10:01 Last Admin: 10/10/18 09:18 Dose: 40 mg 63 yo female w/ pmh of HTN, asthma, diastolic CHF, GERD, prior lower extremity DVT, morbid obesity, DM, anemia, abdominal fibroid, BIBA for evaluation of 1 day history of altered mental status. Patient required intubation in ER due to acute hypoxic / hypercapneic respiratory failure, after intubation became hypotensive requiring fluid resuscitation and pressor for support. She is currently off pressors but remains intubated. # acute on chronic resp failure hypoxic / hypercapneic / LYLY with hypoventilation/ HFpEF / Asthma intubated -- now on 30% FO2 PEEP10 bilat pleural effusions -- volume overload continue lasix / nebulizer/ steroids IV / PPi # Sepsis r/o pna lactic acidosis emperic abx - appreciate ID # DM sliding scale # HTN adjust meds as needed # CAD elevated TNI -- demand ischemia trend
[2018-10-10] MEDS: MIDAZOLAM 100 MG in SODIUM CHLORIDE 100 ML IVPB SCH (18:17)
[2018-10-10] MEDS: INSULIN (LEVEMIR) 100 UNITS/ML UNITS SQ SCH (20:09)
[2018-10-11] MEDS: INSULIN SLIDING SCALE (NOVOLOG) 1 VIAL SQ SCH ×6 (00:01→21:18)
[2018-10-11] MEDS ORDERED: MIDAZOLAM 100 MG/100 ML MG IVPB ONE (01:26)
[2018-10-11] MEDS: CEFAZOLIN 3 GM in DEXTROSE 5%-WATER 100 ML IVPB SCH ×3 (01:33→17:11)
[2018-10-11] MEDS ORDERED: fentaNYL CITRATE 250 MCG/5 ML VIAL ONE (05:05)
[2018-10-11] MEDS: HEPARIN NA (PORCINE) 5,000 UNITS/ML 1ML VIAL SQ SCH ×3 (05:08→21:13)
[2018-10-11 06:03] LABS: HEMATOCRIT 32.7 % (32.4-45.2); HEMOGLOBIN 9.4 GM/dL (10.7-15.3); MCH 20.7 pg (25.7-33.7); MCHC 28.8 g/dl (32.0-36.0); MEAN PLT VOLUME 9.4 fl (7.5-11.1); PLATELET COUNT 236 K/MM3 (134-434); RBC 4.54 M/mm3 (3.60-5.2); RDW 20.7 % (11.6-15.6); WHITE BLOOD COUNT 10.7 K/mm3 (4.0-10.0)
[2018-10-11 06:21] LABS: ANION GAP 7 MMOL/L (8-16); BLOOD UREA NITROGEN 39 mg/dL (7-18); CALCIUM 8.2 mg/dL (8.5-10.1); CHLORIDE 103 mmol/L (98-107); CO2 32 mmol/L (21-32); CREATININE 0.9 mg/dL (0.55-1.3); GLUCOSE,RANDOM 295 mg/dL (74-106); MAGNESIUM 2.3 mg/dL (1.8-2.4); PHOSPHOROUS 3.6 mg/dL (2.5-4.9); POTASSIUM 4.4 mmol/L (3.5-5.1); SODIUM 142 mmol/L (136-145)
[2018-10-11] MEDS: ALBUTEROL SO4 2.5/IPRATROPIUM 0.5 INH SOL 3 ML VIAL.NEB. NEB SCH ×4 (07:20→20:36)
[2018-10-11] MEDS ORDERED: DOCUSATE NA 100 MG/10 ML UNIT-DOSE CUPS PO PRN (08:04)
[2018-10-11] MEDS: INSULIN (LEVEMIR) 100 UNITS/ML UNITS SQ SCH ×2 (08:05→21:17)
[2018-10-11] MEDS ORDERED: FUROSEMIDE 40 MG/4 ML INJECTABLE VIAL IVPUSH ONE (09:30)
[2018-10-11] MEDS ORDERED: PT OWN MED DRAWER 7, Y5N ONE (09:35)
[2018-10-11] MEDS: predniSONE 20 MG TABLET (UD) PO SCH (09:59)
[2018-10-11] MEDS: POLYETHYLENE GLYCOL 3350 119 GM BTL PO SCH ×2 (09:59→21:12)
[2018-10-11] MEDS: PANTOPRAZOLE SODIUM 40 MG VIAL IVPUSH SCH (10:01)
[2018-10-11] MEDS: FLUCONAZOLE 100 MG/D5W 50 ML IVPB SCH (11:15)
--- NOTE | 2018-10-11 11:51 | PN ---
Physical Exam: ICU SUBJECTIVE: Patient seen and examined at bed side , no acute events over night , no fever, chills,still sedated intubated , no BM yet , on tube feed , off sedation this AM and successfully extubated. OBJECTIVE: Vital Signs Period Temp Pulse Resp BP Sys/Jones Pulse Ox Last 24 Hr 97.7 F-98.8 F 65-103 20-25 117-153/57-75 97-100 GENERAL: extubated , no NAD HEAD: NC/AT ENT:MMM NECK: Trachea midline, full range of motion, supple. LUNGS:decrease breath sound at the bases HEART: Regular rate and rhythm, S1, S2 without murmur, rub or gallop. ABDOMEN: Soft, med epigastric tenderness, mild distended, normoactive bowel sounds, no guarding, no rebound, EXTREMITIES: 2+ pulses, warm, well-perfused, +1 edema. NEUROLOGICAL: no focal deficit . Normal speech, gait not observed. PSYCH: Normal mood, normal affect. SKIN: Warm, dry, Laboratory Results - last 24 hr 10/11/18 10/11/18 05:15 05:15 WBC 10.7 H RBC 4.54 Hgb 9.4 L Hct 32.7 MCV 72.0 L MCH 20.7 L MCHC 28.8 L RDW 20.7 H Plt Count 236 MPV 9.4 Sodium 142 Potassium 4.4 Chloride 103 Carbon Dioxide 32 Anion Gap 7 L BUN 39 H Creatinine 0.9 Creat Clearance w eGFR > 60 Random Glucose 295 H Calcium 8.2 L Phosphorus 3.6 Magnesium 2.3 Active Medications Generic Name Dose Route Start Last Admin Trade Name Freq PRN Reason Stop Dose Admin Albuterol Sulfate 1 amp 10/07/18 15:40 Ventolin 0.083% Nebulizer Soln - NEB Q4H PRN SHORT OF BREATH/WHEEZING Albuterol/Ipratropium 1 amp 10/07/18 20:00 10/11/18 07:20 Duoneb - NEB 1 amp RQID [facility] Administration Docusate Sodium 200 mg 10/11/18 08:04 Colace Liquid - PO DAILY PRN CONSTIPATION Heparin Sodium (Porcine) 5,000 unit 10/07/18 15:30 10/11/18 05:08 Heparin - SQ 5,000 unit TID [facility] Administration Midazolam HCl 100 mg/ Sodium 100 mls @ 1 mls/hr 10/07/18 16:30 10/11/18 07:42 Chloride IVPB 0 mg/hr TITR [facility] 0 mls/hr Titration Protocol 1 MG/HR Fluconazole 50 mls @ 100 mls/hr 10/07/18 17:33 10/11/18 11:15 Diflucan 100 Mg/D5w Premixed Ivpb - IVPB 100 mls/hr DAILY [facility] Administration Fentanyl 500 mcg/ Dextrose 100 mls @ 20 mls/hr 10/08/18 18:30 10/11/18 07:42 IVPB 0 mcg/hr TITR [facility] 0 mls/hr Titration 100 MCG/HR Cefazolin Sodium 3 gm/ 100 mls @ 200 mls/hr 10/10/18 10:45 10/11/18 01:33 Dextrose IVPB 200 mls/hr Q8H-IV [facility] Administration Insulin Aspart 1 vial 10/10/18 20:00 10/11/18 08:06 Novolog Vial Sliding Scale - SQ 8 units Q4H [facility] Administration Protocol Insulin Detemir 45 units 10/10/18 20:00 10/11/18 08:05 Levemir Vial SQ 45 units Q12H [facility] Administration Pantoprazole Sodium 40 mg 10/08/18 10:00 10/11/18 10:01 Protonix Iv IVPUSH 40 mg DAILY [facility] Administration Polyethylene Glycol 17 gm 10/11/18 10:00 10/11/18 09:59 Miralax (For Daily Use) - PO Not Given BID [facility] Prednisone 40 mg 10/09/18 10:00 10/11/18 09:59 Deltasone - PO 10/13/18 10:01 Not Given DAILY [facility] CBC, BMP 10/11/18 05:15 10/11/18 05:15 ASSESSMENT/PLAN: patient is a 63 year old female, with a significant PMH of hypertension, asthma , diastolic CHF, GERD, prior lower extremity DVT, morbid obesity, DM, anemia, abdominal fibroids, who presents to the emergency department with altered mental status. was found to have acute hypoxic hypercapnic respiratory distress and was intubated in ED , and her BP was dropped on propofol sedation, admitted to ICU for further evaluation # Neuro * Acute metabolic encephalopathy * extubated 10/12/2018 * B12, Folic acid , TSH , WNL * Urine tox negative * alcohol level WNL # CV -Acute on chronic DCHF - septic shock unkown resource -Hypotension (HTN before admission ) -Right Heart Failure -Elevated Troponins likely Demand Ischemia * sepsis protocol * maintain BP * off fluids and off pressors * restart losartan if needed * ECho un revaling * Cardiology consult Dr rivas * EKG : QTC 446, Sinus tachy with left axis deviation , No St,T wave changes # pulm - Acute hypoxic hypercapnec respiratory failure PH 7.19/pco2 90.8/po2 65.3/bec 33.1 - R/O Acute asthma exacerbation * CXR with congestive changes , bilateral effusion * Duoneb * Ventolin * Solumedrol IV 32 q d for another 3 days * extubated * on High flow oxygen and NIPPV as needed * 40 lasix IV daily _ R/O H PNA * urine AG negative * cont Diflucan , cefazolin * vanco trouph random 14.6 * on high flow oxygen and NIPPV as needed # ID - septic shock, resolved presented with fever 102, sinus tachy, WBC 19 ,low BP 95/54, non respond to fluids -Lactic acidosis -diffuse skin rask on buttocks with stage I ulcer on buttocks B/L can not r/o fungal infection * clemons cx , UA negative , urine cx * Blood bacterimea MSSA * given Ertapenem in ED * ID consulted Dr Contreras , * Influeza A, B swap negative * CXR with congestion changes and interstitial infiltrate bilateral effusion -R/O H PNA Urine AG for legionella and strep negative * DC Vanco/meropenem per ID Dr Contreras , * cont Fluconazol and Cefazolin 3 gm daily # Heme - Microcytic anemia likely due to Fibroid --h/o DVT * H/H stable * on ferrous sulfate at home resume * no active bleeding currently , her mention bloody spots on Vagina last 2 days * Monitor H/H daily # GI - GERD - Constipation * On Mylanta and ranitidine at home will give Protonix 40 IV daily * cont senna , colace , miralax # Nephro - JOEY , resolved ashwini pre renal * BUN/Cr 39/0.9 * likely pre renal due to low oral intake vs hypoperfusion from DCHF * avoid nephrotoxic agents # - UA negative * no buring sensation but report foul smelling * Monitor electrolytes # Endo -IDDM * BGM * ISS * hold Levemir 45 BID SQ (was on 70 BID at home ) # Musculoskeletal - Morbid obesity - Generalized weakness * pt was discharged recently for [facility] with worsening Fatigue and weakness * PT when stable * Bariatric surgery consult out pt (BMI 53 ) # FEN * off fluids * monitor lytes * N: start low sodium diabetic diet # Proph * DVTS: Hep SQ TID * GI: PPI IV 40 daily # Dispo * Monitor in ICU # Code * Full code * guarded prognosis Dispo: We will continue to follow the patient. Thank you for this consultative opportunity. Visit type - Emergency Visit Emergency Visit: Yes ED Registration Date: 10/07/18 Care time: The patient presented to the Emergency Department on the above date and was hospitalized for further evaluation of their emergent condition. - New Patient This patient is new to me today: No - Critical Care Critical Care patient: Yes Total Critical Care Time (in minutes): 45 Critical Care Statement: The care of this patient involved high complexity decision making to prevent further life threatening deterioration of the patient 's condition and/or to evaluate & treat vital organ system(s) failure or risk of failure.
--- NOTE | 2018-10-11 11:53 | PN ---
Teaching Attending Note Name of Resident: Sammy Tirado ATTENDING PHYSICIAN STATEMENT I saw and evaluated the patient. I reviewed the resident's note and discussed the case with the resident. I agree with the resident's findings and plan as documented. SUBJECTIVE: Patient seen and examined in the ICU. Awake and alert on AC Mode of vent, 30% FiO2. No pressors. Able to follow commands. CXR Right effusion Intake & Output 10/08/18 10/09/18 10/10/18 10/11/18 23:59 23:59 23:59 23:59 Intake Total 2200 1467 1684 982 Output Total 900 1600 950 100 Balance 1300 -133 734 882 Weight 404 lb 407 lb 1.6 oz 410 lb 1.6 oz Last Vital Signs Temp Pulse Resp BP Pulse Ox 98.3 F 99 H 25 H 151/72 100 10/11/18 06:00 10/11/18 10:00 10/11/18 10:00 10/11/18 10:00 10/11/18 09:59 Active Medications Albuterol Sulfate (Ventolin 0.083% Nebulizer Soln -) 1 amp NEB Q4H PRN PRN Reason: SHORT OF BREATH/WHEEZING Albuterol/Ipratropium (Duoneb -) 1 amp NEB RQID [facility] Last Admin: 10/11/18 07:20 Dose: 1 amp Docusate Sodium (Colace Liquid -) 200 mg PO DAILY PRN PRN Reason: CONSTIPATION Heparin Sodium (Porcine) (Heparin -) 5,000 unit SQ TID [facility] Last Admin: 10/11/18 05:08 Dose: 5,000 unit Midazolam HCl 100 mg/ Sodium (Chloride) 100 mls @ 1 mls/hr IVPB TITR [facility]; Protocol Last Titration: 10/11/18 07:42 Dose: 0 mg/hr, 0 mls/hr Fluconazole (Diflucan 100 Mg/D5w Premixed Ivpb -) 50 mls @ 100 mls/hr IVPB DAILY [facility] Last Admin: 10/11/18 11:15 Dose: 100 mls/hr Fentanyl 500 mcg/ Dextrose 100 mls @ 20 mls/hr IVPB TITR [facility] Last Titration: 10/11/18 07:42 Dose: 0 mcg/hr, 0 mls/hr Cefazolin Sodium 3 gm/ (Dextrose) 100 mls @ 200 mls/hr IVPB Q8H-IV [facility] Last Admin: 10/11/18 01:33 Dose: 200 mls/hr Insulin Aspart (Novolog Vial Sliding Scale -) 1 vial SQ Q4H [facility]; Protocol Last Admin: 10/11/18 08:06 Dose: 8 units Insulin Detemir (Levemir Vial) 45 units SQ Q12H [facility] Last Admin: 10/11/18 08:05 Dose: 45 units Pantoprazole Sodium (Protonix Iv) 40 mg IVPUSH DAILY [facility] Last Admin: 10/11/18 10:01 Dose: 40 mg Polyethylene Glycol (Miralax (For Daily Use) -) 17 gm PO BID [facility] Last Admin: 10/11/18 09:59 Dose: Not Given Prednisone (Deltasone -) 40 mg PO DAILY [facility] Stop: 10/13/18 10:01 Last Admin: 10/11/18 09:59 Dose: Not Given Exam: General: morbidly obese, intubated, awake and alert Pulm: diminished bilateral CV: S1, S2 Abd: obese, Soft, NT Ext: LE tense edema Neuro: non-focal, following commands Laboratory Results - last 24 hr 10/11/18 10/11/18 05:15 05:15 WBC 10.7 H RBC 4.54 Hgb 9.4 L Hct 32.7 MCV 72.0 L MCH 20.7 L MCHC 28.8 L RDW 20.7 H Plt Count 236 MPV 9.4 Sodium 142 Potassium 4.4 Chloride 103 Carbon Dioxide 32 Anion Gap 7 L BUN 39 H Creatinine 0.9 Creat Clearance w eGFR > 60 Random Glucose 295 H Calcium 8.2 L Phosphorus 3.6 Magnesium 2.3 ASSESSMENT AND PLAN: Acute on Chronic Hypoxic and Hypercapneic Respiratory Failure Suspect Right Heart Failure Volume Overload Acute on Chronic Diastolic Heart Failure Acute Asthma Exacerbation r/o Pneumonia Sepsis Lactic Acidosis +Troponins likely Demand Ischemia Acute Kidney Injury Morbid Obesity Obstructive Sleep Apnea/Obesity Hypoventilation Syndrome HTN DM h/o DVT - Wean to extubate to HF OT / NIPPV - Pred 40mg for 5 day course - inhaled bronchodilators standing and PRN - Empiric antibiotics, likely MSSA bactermia w/ skin source. narrow per ID - Follow up blood cultures - Daily Lasix - Monitor urine output, creatinine - DVT/GI prophylaxis - ICU monitoring Dr Caldwell Critical care time spent in reviewing chart, evaluating patient and formulating plan - 36 minutes.
[2018-10-11] MEDS: methylPREDNISolone NA SUCC 40 MG/1 ML VIAL IVPUSH SCH (13:08)
--- NOTE | 2018-10-11 14:56 | PN ---
Progress Note, Physician History of Present Illness: seen and examined in ICU - Current Medication List Current Medications: Active Medications Albuterol Sulfate (Ventolin 0.083% Nebulizer Soln -) 1 amp NEB Q4H PRN PRN Reason: SHORT OF BREATH/WHEEZING Albuterol/Ipratropium (Duoneb -) 1 amp NEB RQID [facility] Last Admin: 10/11/18 11:30 Dose: 1 amp Docusate Sodium (Colace Liquid -) 200 mg PO DAILY PRN PRN Reason: CONSTIPATION Furosemide (Lasix Injection -) 40 mg IVPUSH DAILY [facility] Heparin Sodium (Porcine) (Heparin -) 5,000 unit SQ TID [facility] Last Admin: 10/11/18 13:08 Dose: 5,000 unit Midazolam HCl 100 mg/ Sodium (Chloride) 100 mls @ 1 mls/hr IVPB TITR [facility]; Protocol Last Titration: 10/11/18 07:42 Dose: 0 mg/hr, 0 mls/hr Fluconazole (Diflucan 100 Mg/D5w Premixed Ivpb -) 50 mls @ 100 mls/hr IVPB DAILY [facility] Last Admin: 10/11/18 11:15 Dose: 100 mls/hr Fentanyl 500 mcg/ Dextrose 100 mls @ 20 mls/hr IVPB TITR [facility] Last Titration: 10/11/18 07:42 Dose: 0 mcg/hr, 0 mls/hr Cefazolin Sodium 3 gm/ (Dextrose) 100 mls @ 200 mls/hr IVPB Q8H-IV [facility] Last Admin: 10/11/18 11:00 Dose: 200 mls/hr Insulin Aspart (Novolog Vial Sliding Scale -) 1 vial SQ Q4H [facility]; Protocol Last Admin: 10/11/18 12:13 Dose: 6 units Insulin Detemir (Levemir Vial) 45 units SQ Q12H [facility] Last Admin: 10/11/18 08:05 Dose: 45 units Losartan Potassium (Cozaar -) 25 mg PO DAILY [facility] Methylprednisolone Sodium Succinate (Solu-Medrol -) 32 mg IVPUSH DAILY [facility] Last Admin: 10/11/18 13:08 Dose: 32 mg Pantoprazole Sodium (Protonix Iv) 40 mg IVPUSH DAILY [facility] Last Admin: 10/11/18 10:01 Dose: 40 mg Polyethylene Glycol (Miralax (For Daily Use) -) 17 gm PO BID [facility] Last Admin: 10/11/18 09:59 Dose: Not Given - Objective Vital Signs: Vital Signs Temperature 98.7 F 10/11/18 12:00 Pulse Rate 103 H 10/11/18 12:00 Respiratory Rate 23 H 10/11/18 12:00 Blood Pressure 148/77 10/11/18 12:00 O2 Sat by Pulse Oximetry (%) 100 10/11/18 09:59 Eyes: Yes: WNL, Conjunctiva Clear, EOM Intact HENT: Yes: WNL, Atraumatic, Normocephalic Neck: Yes: WNL, Supple, Trachea Midline Cardiovascular: Yes: WNL, Regular Rate and Rhythm Respiratory: Yes: WNL, Regular, Diminished Gastrointestinal: Yes: WNL, Normal Bowel Sounds Genitourinary: Yes: WNL Musculoskeletal: Yes: WNL Extremities: Yes: WNL Edema: Yes Integumentary: Yes: WNL Neurological: Yes: WNL, Alert, Oriented ...Motor Strength: WNL Psychiatric: Yes: WNL Labs: CBC, BMP 10/11/18 05:15 10/11/18 05:15 INR, PTT INR 1.42 (0.83-1.09) H 10/07/18 08:30 Assessment/Plan - Problems (1) Sleep apnea Code(s): G47.30 - SLEEP APNEA, UNSPECIFIED (2) Acute on chronic diastolic CHF (congestive heart failure) Assessment/Plan: Extubated - stable Elevated BNP; CXR: bilateral pleural effusion. BP stable - cont IV lasix off pressors Hx diastolic CHF F/u BUN/Cr, electrolytes, daily weight, Is and Os. Code(s): I50.33 - ACUTE ON CHRONIC DIASTOLIC (CONGESTIVE) HEART FAILURE (3) Morbid obesity Code(s): E66.01 - MORBID (SEVERE) OBESITY DUE TO EXCESS CALORIES (4) [place] cardiac risk >20% in next 10 years Assessment/Plan: aggressive control of lipids (f/u lipid panel; TSH) and glucose. Coronary artery evaluation when stable (stress MIBI). Code(s): Z91.89 - OTH PERSONAL RISK FACTORS, NOT ELSEWHERE CLASSIFIED (5) Elevated troponin Assessment/Plan: mildly increased TNI (0.07), with normal CKMB. Normal EKG. Likely demand ischemia from sepsis, CHF, respiratory failure. F/u TNI and EKG serially. Stress MIBI when stable. Code(s): R74.8 - ABNORMAL LEVELS OF OTHER SERUM ENZYMES (6) Sepsis Assessment/Plan: Leukocytosis;improving Likely PNA. Antibiotics per ID; f/u cultures. Code(s): A41.9 - SEPSIS, UNSPECIFIED ORGANISM Qualifiers: Sepsis type: sepsis due to unspecified organism Qualified Code(s): A41.9 - Sepsis, unspecified organism Assessment/Plan CCU time spent: 36 minutes.
--- NOTE | 2018-10-11 16:29 | PN ---
Progress Note (short form) - Note Progress Note: extubated high flow oxygen Vital Signs Period Temp Pulse Resp BP Sys/Jones Pulse Ox Last 24 Hr 98.3 F-98.8 F 65-103 20-25 120-153/61-77 97-100 cor-rrr lungs bilateral rhonchi abd soft, +pannus ext no edema cxray right effusion CBC, BMP 10/11/18 05:15 10/11/18 05:15 Microbiology 10/09/18 11:35 Blood - Peripheral Venous Blood Culture - Preliminary NO GROWTH OBTAINED AFTER 48 HOURS, INCUBATION TO CONTINUE FOR 3 DAYS. 10/09/18 11:25 Blood - Peripheral Venous Blood Culture - Preliminary NO GROWTH OBTAINED AFTER 48 HOURS, INCUBATION TO CONTINUE FOR 3 DAYS. 10/08/18 15:30 Nares - Mrsa Screen - Left MRSA Screen - Final Mr S Aureus 10/07/18 17:00 Sputum - Endotrachea Suction/Ventilator Gram Stain - Final 10/07/18 17:00 Sputum - Endotrachea Suction/Ventilator Sputum Culture - Final NORMAL RESPIRATORY DIOR 10/08/18 15:30 Nares - Mrsa Screen - Right MRSA Screen - Final NO MRSA ISOLATED 10/07/18 08:25 Blood - Peripheral Venous Blood Culture - Final Presumptive Mssa (Pbp2a Neg) 10/07/18 08:25 Blood - Peripheral Venous Blood Culture - Final Staphylococcus Aureus 10/07/18 20:30 Urine For Antigen Detection Legionella Antigen - Final 10/07/18 20:30 Urine For Antigen Detection Streptococcus pneumoniae Antigen (M - Final 10/07/18 08:25 Urine - Urine Clean Catch Urine Culture - Final NO GROWTH OBTAINED Current Medications Albuterol Sulfate (Ventolin 0.083% Nebulizer Soln -) 1 amp NEB Q4H PRN PRN Reason: SHORT OF BREATH/WHEEZING Albuterol/Ipratropium (Duoneb -) 1 amp NEB RQID [facility] Last Admin: 10/11/18 16:24 Dose: 1 amp Docusate Sodium (Colace Liquid -) 200 mg PO DAILY PRN PRN Reason: CONSTIPATION Furosemide (Lasix Injection -) 40 mg IVPUSH DAILY [facility] Heparin Sodium (Porcine) (Heparin -) 5,000 unit SQ TID [facility] Last Admin: 10/11/18 13:08 Dose: 5,000 unit Midazolam HCl 100 mg/ Sodium (Chloride) 100 mls @ 1 mls/hr IVPB TITR [facility]; Protocol Last Titration: 10/11/18 07:42 Dose: 0 mg/hr, 0 mls/hr Fluconazole (Diflucan 100 Mg/D5w Premixed Ivpb -) 50 mls @ 100 mls/hr IVPB DAILY [facility] Last Admin: 10/11/18 11:15 Dose: 100 mls/hr Fentanyl 500 mcg/ Dextrose 100 mls @ 20 mls/hr IVPB TITR [facility] Last Titration: 10/11/18 07:42 Dose: 0 mcg/hr, 0 mls/hr Cefazolin Sodium 3 gm/ (Dextrose) 100 mls @ 200 mls/hr IVPB Q8H-IV [facility] Last Admin: 10/11/18 11:00 Dose: 200 mls/hr Insulin Aspart (Novolog Vial Sliding Scale -) 1 vial SQ Q4H [facility]; Protocol Last Admin: 10/11/18 12:13 Dose: 6 units Insulin Detemir (Levemir Vial) 45 units SQ Q12H [facility] Last Admin: 10/11/18 08:05 Dose: 45 units Losartan Potassium (Cozaar -) 25 mg PO DAILY [facility] Methylprednisolone Sodium Succinate (Solu-Medrol -) 32 mg IVPUSH DAILY [facility] Last Admin: 10/11/18 13:08 Dose: 32 mg Pantoprazole Sodium (Protonix Iv) 40 mg IVPUSH DAILY [facility] Last Admin: 10/11/18 10:01 Dose: 40 mg Polyethylene Glycol (Miralax (For Daily Use) -) 17 gm PO BID [facility] Last Admin: 10/11/18 09:59 Dose: Not Given a/p MSSA bacteremia- continue cefazolin trans thoracic echo unrevealing suspect skin source repeat blood cultures negative acute hypercapneic respiratory failure-extubated today morbid obesity JOEY -resolved zosyn allergy 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
[2018-10-11] MEDS: MIDAZOLAM 100 MG in SODIUM CHLORIDE 100 ML IVPB SCH (16:38)
[2018-10-11] MEDS: LOSARTAN POTASSIUM 25 MG TABLET PO SCH (16:39)
[2018-10-11] MEDS: FENTANYL INJECTION 500 MCG in DEXTROSE 5%-WATER - 90 ML IVPB SCH (20:10)
--- NOTE | 2018-10-11 23:27 | PN ---
Progress Note (short form) - Note Progress Note: patient seen and examined in ICU patient extubated / awake / Fio2 at 30% with 98% sat Intake & Output 10/08/18 10/09/18 10/10/18 10/11/18 23:59 23:59 23:59 23:59 Intake Total 2200 1467 1684 1232 Output Total 900 7021 887 5700 Balance 1300 -133 734 -968 Weight 404 lb 407 lb 1.6 oz 410 lb 1.6 oz Vital Signs Period Temp Pulse Resp BP Sys/Jones Pulse Ox Last 24 Hr 98.3 F-98.7 F 65-106 20-27 117-153/55-78 97-100 morbidly obese female extubated heart S1/S2 lungs grossly clear no wheezing obese abdomen ext ++ edema with chronic changes CBC, BMP 10/11/18 05:15 10/11/18 05:15 CBC, BMP 10/10/18 05:30 10/10/18 05:30 Microbiology 10/09/18 11:35 Blood - Peripheral Venous Blood Culture - Preliminary NO GROWTH OBTAINED AFTER 48 HOURS, INCUBATION TO CONTINUE FOR 3 DAYS. 10/09/18 11:25 Blood - Peripheral Venous Blood Culture - Preliminary NO GROWTH OBTAINED AFTER 48 HOURS, INCUBATION TO CONTINUE FOR 3 DAYS. 10/08/18 15:30 Nares - Mrsa Screen - Left MRSA Screen - Final Mr S Aureus 10/07/18 17:00 Sputum - Endotrachea Suction/Ventilator Gram Stain - Final 10/07/18 17:00 Sputum - Endotrachea Suction/Ventilator Sputum Culture - Final NORMAL RESPIRATORY DIOR 10/08/18 15:30 Nares - Mrsa Screen - Right MRSA Screen - Final NO MRSA ISOLATED 10/07/18 08:25 Blood - Peripheral Venous Blood Culture - Final Presumptive Mssa (Pbp2a Neg) 10/07/18 08:25 Blood - Peripheral Venous Blood Culture - Final Staphylococcus Aureus 10/07/18 20:30 Urine For Antigen Detection Legionella Antigen - Final 10/07/18 20:30 Urine For Antigen Detection Streptococcus pneumoniae Antigen (M - Final 10/07/18 08:25 Urine - Urine Clean Catch Urine Culture - Final NO GROWTH OBTAINED Active Medications Albuterol Sulfate (Ventolin 0.083% Nebulizer Soln -) 1 amp NEB Q4H PRN PRN Reason: SHORT OF BREATH/WHEEZING Albuterol/Ipratropium (Duoneb -) 1 amp NEB RQID [facility] Last Admin: 10/11/18 20:36 Dose: 1 amp Docusate Sodium (Colace Liquid -) 200 mg PO DAILY PRN PRN Reason: CONSTIPATION Furosemide (Lasix Injection -) 40 mg IVPUSH DAILY [facility] Heparin Sodium (Porcine) (Heparin -) 5,000 unit SQ TID [facility] Last Admin: 10/11/18 21:13 Dose: 5,000 unit Midazolam HCl 100 mg/ Sodium (Chloride) 100 mls @ 1 mls/hr IVPB TITR [facility]; Protocol Last Admin: 10/11/18 16:38 Dose: Not Given Fluconazole (Diflucan 100 Mg/D5w Premixed Ivpb -) 50 mls @ 100 mls/hr IVPB DAILY [facility] Last Admin: 10/11/18 11:15 Dose: 100 mls/hr Fentanyl 500 mcg/ Dextrose 100 mls @ 20 mls/hr IVPB TITR [facility] Last Admin: 10/11/18 20:10 Dose: Not Given Cefazolin Sodium 3 gm/ (Dextrose) 100 mls @ 200 mls/hr IVPB Q8H-IV [facility] Last Admin: 10/11/18 17:11 Dose: 200 mls/hr Insulin Aspart (Novolog Vial Sliding Scale -) 1 vial SQ Q4H [facility]; Protocol Last Admin: 10/11/18 21:18 Dose: 6 units Insulin Detemir (Levemir Vial) 45 units SQ Q12H [facility] Last Admin: 10/11/18 21:17 Dose: 45 units Losartan Potassium (Cozaar -) 25 mg PO DAILY [facility] Last Admin: 10/11/18 16:39 Dose: Not Given Methylprednisolone Sodium Succinate (Solu-Medrol -) 32 mg IVPUSH DAILY [facility] Last Admin: 10/11/18 13:08 Dose: 32 mg Pantoprazole Sodium (Protonix Iv) 40 mg IVPUSH DAILY [facility] Last Admin: 10/11/18 10:01 Dose: 40 mg Polyethylene Glycol (Miralax (For Daily Use) -) 17 gm PO BID [facility] Last Admin: 10/11/18 21:12 Dose: Not Given 63 yo female w/ pmh of HTN, asthma, diastolic CHF, GERD, prior lower extremity DVT, morbid obesity, DM, anemia, abdominal fibroid, BIBA for evaluation of 1 day history of altered mental status. Patient required intubation in ER due to acute hypoxic / hypercapneic respiratory failure, after intubation became hypotensive requiring fluid resuscitation and pressor for support. She is currently off pressors but remains intubated. # acute on chronic resp failure hypoxic / hypercapneic / LYLY with hypoventilation/ HFpEF / Asthma extubated continue lasix / nebulizer/ steroids IV / PPi # Sepsis r/o pna lactic acidosis emperic abx - appreciate ID # DM sliding scale # HTN adjust meds as needed # CAD elevated TNI -- demand ischemia trend Problem List - Problems (1) Respiratory failure with hypercapnia Code(s): J96.92 - RESPIRATORY FAILURE, UNSPECIFIED WITH HYPERCAPNIA (2) Sepsis Code(s): A41.9 - SEPSIS, UNSPECIFIED ORGANISM Qualifiers: Sepsis type: sepsis due to unspecified organism Qualified Code(s): A41.9 - Sepsis, unspecified organism (3) JOEY (acute kidney injury) Code(s): N17.9 - ACUTE KIDNEY FAILURE, UNSPECIFIED (4) Respiratory distress Code(s): R06.03 - ACUTE RESPIRATORY DISTRESS (5) Elevated troponin Code(s): R74.8 - ABNORMAL LEVELS OF OTHER SERUM ENZYMES (6) Hypoxia Code(s): R09.02 - HYPOXEMIA (7) Sleep apnea Code(s): G47.30 - SLEEP APNEA, UNSPECIFIED (8) Acute on chronic diastolic CHF (congestive heart failure) Code(s): I50.33 - ACUTE ON CHRONIC DIASTOLIC (CONGESTIVE) HEART FAILURE (9) Congestive heart disease Code(s): I50.9 - HEART FAILURE, UNSPECIFIED (10) Elevated brain natriuretic peptide (BNP) level Code(s): R79.89 - OTHER SPECIFIED ABNORMAL FINDINGS OF BLOOD CHEMISTRY (11) HTN (hypertension) Code(s): I10 - ESSENTIAL (PRIMARY) HYPERTENSION (12) Morbid obesity Code(s): E66.01 - MORBID (SEVERE) OBESITY DUE TO EXCESS CALORIES
[2018-10-12] MEDS: CEFAZOLIN 3 GM in DEXTROSE 5%-WATER 100 ML IVPB SCH ×2 (02:00→09:33)
[2018-10-12] MEDS: INSULIN SLIDING SCALE (NOVOLOG) 1 VIAL SQ SCH ×6 (04:01→22:42)
[2018-10-12] MEDS: HEPARIN NA (PORCINE) 5,000 UNITS/ML 1ML VIAL SQ SCH ×3 (06:03→22:19)
[2018-10-12 06:45] LABS: ARTERIAL BLD GAS O2 SATURATION 97.1 % (90-98.9); ARTERIAL BLOOD GAS BASE EXCESS 8.6 meq/l (-2-2); ARTERIAL BLOOD GAS pH 7.35 (7.35-7.45)
[2018-10-12 06:52] LABS: ALLENS TEST POSITIVE
[2018-10-12 06:52] LABS: ALBUMIN 2.2 g/dl (3.4-5.0); ALK PHOS 57 U/L (45-117); ANION GAP 5 MMOL/L (8-16); BILIRUBIN,TOTAL 0.3 mg/dL (0.2-1); BLOOD UREA NITROGEN 35 mg/dL (7-18); CALCIUM 8.5 mg/dL (8.5-10.1); CHLORIDE 100 mmol/L (98-107); CO2 37 mmol/L (21-32); CREATININE 0.9 mg/dL (0.55-1.3); GLUCOSE,RANDOM 223 mg/dL (74-106); MAGNESIUM 2.4 mg/dL (1.8-2.4); PHOSPHOROUS 4.5 mg/dL (2.5-4.9); POTASSIUM 4.8 mmol/L (3.5-5.1); SGOT/AST 29 U/L (15-37); SGPT/ALT 20 U/L (13-61); SODIUM 142 mmol/L (136-145); TOT PROT 6.7 g/dl (6.4-8.2)
[2018-10-12 06:53] LABS: ARTERIAL BLOOD GAS PCO2 65.9 mmHg (35-45)
[2018-10-12 07:16] LABS: BASO % 0.3 % (0-2.0); HEMATOCRIT 34.8 % (32.4-45.2); HEMOGLOBIN 9.7 GM/dL (10.7-15.3); LYMPH % 8.3 % (8-40); MCH 20.2 pg (25.7-33.7); MCHC 27.8 g/dl (32.0-36.0); MEAN CELL VOLUME 72.7 fl (80-96); MEAN PLT VOLUME 9.5 fl (7.5-11.1); MONO % 6.1 % (3.8-10.2); NEUT % 85.3 % (42.8-82.8); PLATELET COUNT 244 K/MM3 (134-434); RBC 4.78 M/mm3 (3.60-5.2); WHITE BLOOD COUNT 12.2 K/mm3 (4.0-10.0)
[2018-10-12] MEDS: ALBUTEROL SO4 2.5/IPRATROPIUM 0.5 INH SOL 3 ML VIAL.NEB. NEB SCH ×4 (08:44→20:00)
[2018-10-12] MEDS: LOSARTAN POTASSIUM 25 MG TABLET PO SCH (09:34)
[2018-10-12] MEDS: FUROSEMIDE 40 MG/4 ML INJECTABLE VIAL IVPUSH SCH (09:36)
[2018-10-12] MEDS: methylPREDNISolone NA SUCC 40 MG/1 ML VIAL IVPUSH SCH (09:37)
[2018-10-12] MEDS: PANTOPRAZOLE SODIUM 40 MG VIAL IVPUSH SCH (09:37)
[2018-10-12] MEDS: FLUCONAZOLE 100 MG/D5W 50 ML IVPB SCH (09:42)
[2018-10-12] MEDS: POLYETHYLENE GLYCOL 3350 119 GM BTL PO SCH ×2 (09:42→22:20)
[2018-10-12] MEDS: INSULIN (LEVEMIR) 100 UNITS/ML UNITS SQ SCH ×2 (09:43→22:42)
--- NOTE | 2018-10-12 12:08 | CONSULT ---
Admitting History and Physical - Primary Care Physician PCP: Silvana Vivar I - Admission History of Present Illness: 63 y/o female brought in by spouse for unresponsiveness. BG 300s. Pt septic. Pt intubated and will be admitted to ICU. PMHx includes morbid obesity, htn, asthma , chf, gerd, Hx LE DVT, dm, anemia and fibroids. Sepsis r/o pna lactic acidosis ID imp 10/11/18 MSSA bacteremia- trans thoracic echo unrevealing suspect skin source repeat blood cultures negative acute hypercapneic respiratory failure-extubated 10/11 Pulmonary/Critical care- Acute on Chronic Hypoxic and Hypercapneic Respiratory Failure Suspect Right Heart Failure Volume Overload Acute on Chronic Diastolic Heart Failure Acute Asthma Exacerbation r/o Pneumonia Sepsis Lactic Acidosis +Troponins likely Demand Ischemia Acute Kidney Injury Morbid Obesity Obstructive Sleep Apnea/Obesity Hypoventilation Syndrome HTN DM h/o DVT R/O new LE DVT This is my first consult. History Source: Patient Limitations to Obtaining History: Clinical Condition - Past Medical History Cardiovascular: Yes: CHF, HTN Pulmonary: Yes: Asthma, Pneumonia Gastrointestinal: Yes: GERD ...: No Heme/Onc: Yes: Anemia. No: B12 Deficiency, Bleeding Disorder, Cancer, Current Chemotherapy, Current Radiation Therapy, Hemochromatosis, Hypercoaguable State, Myeloproliferative Synd, Sickle Cell Disease, Sickle Cell Trait, Thrombocytopenia, Other Psych: Yes: Depression Musculoskeletal: Yes: Other (Hx of LE DVT) Endocrine: Yes: Diabetes Mellitus Dermatology: Yes: Other (Fungal rash buttocks) - Past Surgical History Past Surgical History: Yes: Colectomy - Smoking History Smoking history: Former smoker Have you smoked in the past 12 months: No Aproximately how many cigarettes per day: 0 If you are a former smoker, when did you quit?: 1979 - Alcohol/Substance Use Hx Alcohol Use: No History of Substance Use: reports: None - Social History ADL: Support Services Occupation: unemployed History of Recent Travel: No History - Admission Reason For Visit: RESP FAIL W HYPERCAPNIA,HYPOXIA,SEPSIS - Diagnostics X-ray: Report Reviewed - General Mental Status: Alert and Oriented, Awake and Alert, Able to Follow Commands Attention: Intact Ability to Follow Directions: Good Head/Neck Control: Good - Hearing Hearing: Functional Hearing: Normal Hearing Aide: No Speech Evaluation - Communication Primary Language: [id number] Communication: Yes: Within Normal Limits Oral Expression Ability: Yes: Mild Impairment - Speech Production Able to Make Needs Known: Yes: Mildly Impaired - Speech Characteristics Voice Loudness: Mildly Soft/Quiet Voice Pitch: Yes: Mildly Low Voice Phonatory-based Quality: Yes: Dysphonia (pitch breaks, hoarse, improving since extubation) Nasal Resonance: Normal Articulation: Yes: Precise Voice, Other Observations: Yes: Progressively Weak Voice - Language/Auditory Comprehension Follows: Yes: 1 Stage Simple Commands Observation: Able to respond to yes/no queries: Yes, Yes/No Confusion: No, Comprehends Conversational Speech: Yes - Language/Verbal Expression Able to Respond to Simple Queries: Yes: WNL Able to Communicate Wants and Needs: Yes: WNL Functional Communication Status: Yes: WNL - Swallow Evaluation/Bedside Assessment Current Nutritional Intake: Soft, Thin Liquids, Other (Had home fries,water, milk this am for breakfast. Pt denies responsive cough, odynophagia, dysphagia) Oral Secretions: Yes: WFL Dentition: Yes: Adequate Facial Symmetry at Rest: Symmetrical Facial Symmetry on Retraction: Symmetrical Facial Movement: Controlled Sensation: Normal Against Resistance Opening: Normal Against Resistance Closing: Normal Pucker Lips: Normal Smile: Normal Lingual Movement: Normal, Symmetric Lingual Speed of Movement: Normal Lingual Movement Strgth Against Opposition: Normal Lingual Movement Characteristics: Normal Velopharyngeal Movement: Normal Laryngeal Elevation: WFL Laryngeal Movement: Able to Palpate, Labored,delay initiation (fairly brisk once triggered.) Rate of Intake: WFL Bolus Size: WFL Labial Seal: WFL Chewing: WFL Oral Prep Time: WFL A-P Transit: WFL Pocketing: None Timing of Swallow: Delayed Coughing/Throat Clear: No Change in Voice: No Recommendations - Speech Evaluation, Impression/Plan Impression: pitch breaks, hoarse, improving since extubation. Pt on soft diet/ thin liquids without difficulty reported or observed. 3 oz water test (-) - Dysphagia Impressions/Plan Dysphagia Impressions: Risk of Aspiration, Ongoing Evaluation *Silent aspiration: cannot be R/O at bedside Recommendations: Modified Barium Swallow (If cough, increasing congestion, worsening CXR), Other (Continue diet ordered.) - Recommendations Diet Consistency: Other (Soft) Medication Administration: Whole with water Liquids: Thin Liquids
[2018-10-12 12:09] LABS: ANISOCYTOSIS 1+
--- NOTE | 2018-10-12 12:09 | PN ---
Teaching Attending Note Name of Resident: Sammy Tirado ATTENDING PHYSICIAN STATEMENT I saw and evaluated the patient. I reviewed the resident's note and discussed the case with the resident. I agree with the resident's findings and plan as documented. SUBJECTIVE: Patient seen and examined in the ICU. Remains extubated on HF OT (50% FiO2 & 50 L). Awake and responsive. Reports some congested cough. Also reports urinary discomfort. No pressors. CXR Increasing Right effusion Intake & Output 10/09/18 10/10/18 10/11/18 10/12/18 23:59 23:59 23:59 23:59 Intake Total 1467 1684 1232 100 Output Total 8913 462 0212 1000 Balance -133 734 -1968 -900 Weight 404 lb 407 lb 1.6 oz 410 lb 1.6 oz 396 lb 5 oz Last Vital Signs Temp Pulse Resp BP Pulse Ox 97.9 F 82 21 H 138/65 98 10/12/18 10:00 10/12/18 10:00 10/12/18 10:00 10/12/18 10:00 10/11/18 19:58 Active Medications Albuterol Sulfate (Ventolin 0.083% Nebulizer Soln -) 1 amp NEB Q4H PRN PRN Reason: SHORT OF BREATH/WHEEZING Albuterol/Ipratropium (Duoneb -) 1 amp NEB RQID [facility] Last Admin: 10/12/18 08:44 Dose: 1 amp Docusate Sodium (Colace Liquid -) 200 mg PO DAILY PRN PRN Reason: CONSTIPATION Furosemide (Lasix Injection -) 40 mg IVPUSH DAILY [facility] Last Admin: 10/12/18 09:36 Dose: 40 mg Heparin Sodium (Porcine) (Heparin -) 5,000 unit SQ TID [facility] Last Admin: 10/12/18 06:03 Dose: 5,000 unit Midazolam HCl 100 mg/ Sodium (Chloride) 100 mls @ 1 mls/hr IVPB TITR [facility]; Protocol Last Admin: 10/11/18 16:38 Dose: Not Given Fluconazole (Diflucan 100 Mg/D5w Premixed Ivpb -) 50 mls @ 100 mls/hr IVPB DAILY [facility] Last Admin: 10/12/18 09:42 Dose: 100 mls/hr Fentanyl 500 mcg/ Dextrose 100 mls @ 20 mls/hr IVPB TITR [facility] Last Admin: 10/11/18 20:10 Dose: Not Given Cefazolin Sodium 3 gm/ (Dextrose) 100 mls @ 200 mls/hr IVPB Q8H-IV [facility] Last Admin: 10/12/18 09:33 Dose: 200 mls/hr Insulin Aspart (Novolog Vial Sliding Scale -) 1 vial SQ Q4H [facility]; Protocol Last Admin: 10/12/18 09:43 Dose: 4 units Insulin Detemir (Levemir Vial) 45 units SQ Q12H [facility] Last Admin: 10/12/18 09:43 Dose: 45 units Losartan Potassium (Cozaar -) 25 mg PO DAILY [facility] Last Admin: 10/12/18 09:34 Dose: 25 mg Methylprednisolone Sodium Succinate (Solu-Medrol -) 32 mg IVPUSH DAILY [facility] Last Admin: 10/12/18 09:37 Dose: 32 mg Pantoprazole Sodium (Protonix Iv) 40 mg IVPUSH DAILY [facility] Last Admin: 10/12/18 09:37 Dose: 40 mg Polyethylene Glycol (Miralax (For Daily Use) -) 17 gm PO BID [facility] Last Admin: 10/12/18 09:42 Dose: 17 gm Exam: General: morbidly obese, Extubated, awake and alert Pulm: diminished bilateral CV: S1, S2 Abd: obese, Soft, NT Ext: LE tense edema Neuro: non-focal, following commands Laboratory Results - last 24 hr 10/12/18 10/12/18 10/12/18 05:30 05:30 06:00 WBC 12.2 H RBC 4.78 Hgb 9.7 L Hct 34.8 MCV 72.7 L MCH 20.2 L MCHC 27.8 L RDW 21.0 H Plt Count 244 MPV 9.5 Absolute Neuts (auto) 10.4 H Neutrophils % 85.3 H Lymphocytes % 8.3 D Monocytes % 6.1 Eosinophils % 0.0 Basophils % 0.3 Nucleated RBC % 0 Puncture Site Right radial ABG pH 7.35 ABG pCO2 at Pt Temp 65.9 H* D ABG pO2 at Pt Temp 108.0 H ABG HCO3 35.2 H ABG O2 Sat (Measured) 97.1 ABG O2 Content 12.2 L ABG Base Excess 8.6 H Gama Test Positive O2 Delivery Device High flow Oxygen Flow Rate 50% Sodium 142 Potassium 4.8 Chloride 100 Carbon Dioxide 37 H Anion Gap 5 L BUN 35 H Creatinine 0.9 Creat Clearance w eGFR > 60 Random Glucose 223 H Hemoglobin A1c % Calcium 8.5 Phosphorus 4.5 Magnesium 2.4 Total Bilirubin 0.3 AST 29 ALT 20 Alkaline Phosphatase 57 Total Protein 6.7 Albumin 2.2 L 10/12/18 07:30 WBC RBC Hgb Hct MCV MCH MCHC RDW Plt Count MPV Absolute Neuts (auto) Neutrophils % Lymphocytes % Monocytes % Eosinophils % Basophils % Nucleated RBC % Puncture Site ABG pH ABG pCO2 at Pt Temp ABG pO2 at Pt Temp ABG HCO3 ABG O2 Sat (Measured) ABG O2 Content ABG Base Excess Gama Test O2 Delivery Device Oxygen Flow Rate Sodium Potassium Chloride Carbon Dioxide Anion Gap BUN Creatinine Creat Clearance w eGFR Random Glucose Hemoglobin A1c % 12.2 H Calcium Phosphorus Magnesium Total Bilirubin AST ALT Alkaline Phosphatase Total Protein Albumin ASSESSMENT AND PLAN: Acute on Chronic Hypoxic and Hypercapneic Respiratory Failure Suspect Right Heart Failure Volume Overload Acute on Chronic Diastolic Heart Failure Acute Asthma Exacerbation r/o Pneumonia Sepsis Lactic Acidosis +Troponins likely Demand Ischemia Acute Kidney Injury Morbid Obesity Obstructive Sleep Apnea/Obesity Hypoventilation Syndrome HTN DM h/o DVT R/O new LE DVT - Wean HF OT / NIPPV as needed - Pred 40mg for 5 day course - inhaled bronchodilators standing and PRN - ABX per ID - Daily Lasix - Monitor urine output, creatinine - DVT/GI prophylaxis - Check LE US - ICU monitoring for HF OT and tenuous respiratory status Dr Caldwell Critical care time spent in reviewing chart, evaluating patient and formulating plan - 36 minutes.
[2018-10-12 12:10] LABS: MACROCYTOSIS 1+
--- NOTE | 2018-10-12 13:03 | PN ---
Physical Exam: SUBJECTIVE: Patient seen and examined at bed side , no acute events over night , no fever, chills,, 3 BM over night ,S/P extubated on high flow 50/50 OBJECTIVE: Vital Signs Period Temp Pulse Resp BP Sys/Jones Pulse Ox Last 24 Hr 97.8 F-98.6 F 74-106 17-27 117-140/55-85 98 GENERAL: S/P extubated , no NAD , on high flow NC HEAD: NC/AT ENT:MMM NECK: Trachea midline, full range of motion, supple. LUNGS:decrease breath sound at the bases HEART: Regular rate and rhythm, S1, S2 without murmur, rub or gallop. ABDOMEN: Soft, med epigastric tenderness, mild distended, normoactive bowel sounds, no guarding, no rebound, EXTREMITIES: 2+ pulses, warm, well-perfused, +1 edema. left more than right , with calf tenderness NEUROLOGICAL: no focal deficit . Normal speech, gait not observed. PSYCH: Normal mood, normal affect. SKIN: Warm, dry, Laboratory Results - last 24 hr 10/12/18 10/12/18 10/12/18 05:30 05:30 06:00 WBC 12.2 H RBC 4.78 Hgb 9.7 L Hct 34.8 MCV 72.7 L MCH 20.2 L MCHC 27.8 L RDW 21.0 H Plt Count 244 MPV 9.5 Absolute Neuts (auto) 10.4 H Neutrophils % 85.3 H Lymphocytes % 8.3 D Monocytes % 6.1 Eosinophils % 0.0 Basophils % 0.3 Nucleated RBC % 0 Hypochromia 2+ Anisocytosis 1+ Microcytosis 1+ Macrocytosis 1+ Puncture Site Right radial ABG pH 7.35 ABG pCO2 at Pt Temp 65.9 H* D ABG pO2 at Pt Temp 108.0 H ABG HCO3 35.2 H ABG O2 Sat (Measured) 97.1 ABG O2 Content 12.2 L ABG Base Excess 8.6 H Gama Test Positive O2 Delivery Device High flow Oxygen Flow Rate 50% Sodium 142 Potassium 4.8 Chloride 100 Carbon Dioxide 37 H Anion Gap 5 L BUN 35 H Creatinine 0.9 Creat Clearance w eGFR > 60 Random Glucose 223 H Hemoglobin A1c % Calcium 8.5 Phosphorus 4.5 Magnesium 2.4 Total Bilirubin 0.3 AST 29 ALT 20 Alkaline Phosphatase 57 Total Protein 6.7 Albumin 2.2 L 10/12/18 07:30 WBC RBC Hgb Hct MCV MCH MCHC RDW Plt Count MPV Absolute Neuts (auto) Neutrophils % Lymphocytes % Monocytes % Eosinophils % Basophils % Nucleated RBC % Hypochromia Anisocytosis Microcytosis Macrocytosis Puncture Site ABG pH ABG pCO2 at Pt Temp ABG pO2 at Pt Temp ABG HCO3 ABG O2 Sat (Measured) ABG O2 Content ABG Base Excess Gama Test O2 Delivery Device Oxygen Flow Rate Sodium Potassium Chloride Carbon Dioxide Anion Gap BUN Creatinine Creat Clearance w eGFR Random Glucose Hemoglobin A1c % 12.2 H Calcium Phosphorus Magnesium Total Bilirubin AST ALT Alkaline Phosphatase Total Protein Albumin Active Medications Generic Name Dose Route Start Last Admin Trade Name Freq PRN Reason Stop Dose Admin Albuterol Sulfate 1 amp 10/07/18 15:40 Ventolin 0.083% Nebulizer Soln - NEB Q4H PRN SHORT OF BREATH/WHEEZING Albuterol/Ipratropium 1 amp 10/07/18 20:00 10/12/18 08:44 Duoneb - NEB 1 amp RQID [facility] Administration Docusate Sodium 200 mg 10/11/18 08:04 Colace Liquid - PO DAILY PRN CONSTIPATION Furosemide 40 mg 10/12/18 10:00 10/12/18 09:36 Lasix Injection - IVPUSH 40 mg DAILY [facility] Administration Heparin Sodium (Porcine) 5,000 unit 10/07/18 15:30 10/12/18 06:03 Heparin - SQ 5,000 unit TID [facility] Administration Midazolam HCl 100 mg/ Sodium 100 mls @ 1 mls/hr 10/07/18 16:30 10/11/18 16:38 Chloride IVPB Not Given TITR [facility] Protocol 1 MG/HR Fluconazole 50 mls @ 100 mls/hr 10/07/18 17:33 10/12/18 09:42 Diflucan 100 Mg/D5w Premixed Ivpb - IVPB 100 mls/hr DAILY [facility] Administration Fentanyl 500 mcg/ Dextrose 100 mls @ 20 mls/hr 10/08/18 18:30 10/11/18 20:10 IVPB Not Given TITR [facility] 100 MCG/HR Cefazolin Sodium 3 gm/ 100 mls @ 200 mls/hr 10/10/18 10:45 10/12/18 09:33 Dextrose IVPB 200 mls/hr Q8H-IV [facility] Administration Insulin Aspart 1 vial 10/10/18 20:00 10/12/18 12:34 Novolog Vial Sliding Scale - SQ 6 units Q4H [facility] Administration Protocol Insulin Detemir 45 units 10/10/18 20:00 10/12/18 09:43 Levemir Vial SQ 45 units Q12H [facility] Administration Losartan Potassium 25 mg 10/11/18 14:15 10/12/18 09:34 Cozaar - PO 25 mg DAILY [facility] Administration Methylprednisolone Sodium Succinate 32 mg 10/11/18 12:00 10/12/18 09:37 Solu-Medrol - IVPUSH 32 mg DAILY [facility] Administration Pantoprazole Sodium 40 mg 10/08/18 10:00 10/12/18 09:37 Protonix Iv IVPUSH 40 mg DAILY [facility] Administration Polyethylene Glycol 17 gm 10/11/18 10:00 10/12/18 09:42 Miralax (For Daily Use) - PO 17 gm BID [facility] Administration CBC, BMP 10/12/18 05:30 10/12/18 05:30 ASSESSMENT/PLAN: patient is a 63 year old female, with a significant PMH of hypertension, asthma , diastolic CHF, GERD, prior lower extremity DVT, morbid obesity, DM, anemia, abdominal fibroids, who presents to the emergency department with altered mental status. was found to have acute hypoxic hypercapnic respiratory distress and was intubated in ED , and her BP was dropped on propofol sedation, admitted to ICU for further evaluation # Neuro * Acute metabolic encephalopathy * extubated 10/12/2018 * B12, Folic acid , TSH , WNL * Urine tox negative * alcohol level WNL # CV -Acute on chronic DCHF - septic shock unkown resource -Hypotension (HTN before admission ) -Right Heart Failure -Elevated Troponins likely Demand Ischemia * sepsis protocol * maintain BP * off fluids and off pressors * restart losartan if needed * ECho un revaling * Cardiology consult Dr rivas , will obtain records from [facility] for stress test that was done one year ago * EKG : QTC 446, Sinus tachy with left axis deviation , No St,T wave changes # pulm - Acute hypoxic hypercapnec respiratory failure PH 7.19/pco2 90.8/po2 65.3/bec 33.1 - R/O Acute asthma exacerbation * CXR with congestive changes , bilateral effusion * Duoneb * Ventolin * Solumedrol IV 32 q d for another 2 days * extubated * on High flow oxygen and NIPPV as needed , taper fio2 * 40 lasix IV daily _ R/O H PNA * urine AG negative * cont Diflucan , cefazolin * vanco trouph random 14.6 * on high flow oxygen and NIPPV as needed # ID - septic shock, resolved presented with fever 102, sinus tachy, WBC 19 ,low BP 95/54, non respond to fluids -Lactic acidosis -diffuse skin rask on buttocks with stage I ulcer on buttocks B/L can not r/o fungal infection * clemons cx , UA negative , urine cx * Blood bacterimea MSSA * given Ertapenem in ED * ID consulted Dr Contreras , * Influeza A, B swap negative * CXR with congestion changes and interstitial infiltrate bilateral effusion -R/O H PNA Urine AG for legionella and strep negative * DC Vanco/meropenem per ID Dr Contreras , * cont Fluconazol and Cefazolin 3 gm daily # Heme - Microcytic anemia likely due to Fibroid --h/o DVT * H/H stable * on ferrous sulfate at home resume * no active bleeding currently , her mention bloody spots on Vagina last 2 days * Monitor H/H daily # GI - GERD - Constipation , resolved 3 BM over night * On Mylanta and ranitidine at home will give Protonix 40 IV daily * cont senna , colace , miralax * US abdomen # Nephro - JOEY , resolved ashwini pre renal * BUN/Cr normalised # - UA negative * no buring sensation but report foul smelling * Monitor electrolytes # Endo -IDDM * BGM * ISS * hold Levemir 45 BID SQ (was on 70 BID at home ) # Musculoskeletal - Morbid obesity - Generalized weakness * pt was discharged recently for [facility] with worsening Fatigue and weakness * PT when stable * Bariatric surgery consult out pt (BMI 53 ) # FEN * off fluids * monitor lytes * N: start low sodium diabetic diet # Proph * DVTS: Hep SQ TID , US to R/O DVTS * GI: PPI IV 40 daily # Dispo * Monitor in ICU # Code * Full code * guarded prognosis Dispo: We will continue to follow the patient. Thank you for this consultative opportunity. Visit type - Emergency Visit Emergency Visit: Yes ED Registration Date: 10/07/18 Care time: The patient presented to the Emergency Department on the above date and was hospitalized for further evaluation of their emergent condition. - New Patient This patient is new to me today: No - Critical Care Critical Care patient: Yes Total Critical Care Time (in minutes): 45 Critical Care Statement: The care of this patient involved high complexity decision making to prevent further life threatening deterioration of the patient 's condition and/or to evaluate & treat vital organ system(s) failure or risk of failure.
[2018-10-12] MEDS ORDERED: LIDOCAINE HCL 2% JELLY 10 ML CARTRIDGE UR ONE (13:54)
[2018-10-12] MEDS: MIDAZOLAM 100 MG in SODIUM CHLORIDE 100 ML IVPB SCH (17:20)
--- NOTE | 2018-10-12 17:26 | PN ---
Progress Note (short form) - Note Progress Note: alert no complaints Vital Signs Period Temp Pulse Resp BP Sys/Jones Pulse Ox Last 24 Hr 97.8 F-98.6 F 74-106 16-24 117-140/55-85 98 cor-rrr lungs bilateral rhonchi abd soft,nt ext no edema CBC, BMP 10/12/18 05:30 10/12/18 05:30 Microbiology 10/09/18 11:35 Blood - Peripheral Venous Blood Culture - Preliminary NO GROWTH OBTAINED AFTER 72 HOURS, INCUBATION TO CONTINUE FOR 2 DAYS. 10/09/18 11:25 Blood - Peripheral Venous Blood Culture - Preliminary NO GROWTH OBTAINED AFTER 72 HOURS, INCUBATION TO CONTINUE FOR 2 DAYS. 10/08/18 15:30 Nares - Mrsa Screen - Left MRSA Screen - Final Mr S Aureus 10/07/18 17:00 Sputum - Endotrachea Suction/Ventilator Gram Stain - Final 10/07/18 17:00 Sputum - Endotrachea Suction/Ventilator Sputum Culture - Final NORMAL RESPIRATORY DIOR 10/08/18 15:30 Nares - Mrsa Screen - Right MRSA Screen - Final NO MRSA ISOLATED 10/07/18 08:25 Blood - Peripheral Venous Blood Culture - Final Presumptive Mssa (Pbp2a Neg) 10/07/18 08:25 Blood - Peripheral Venous Blood Culture - Final Staphylococcus Aureus 10/07/18 20:30 Urine For Antigen Detection Legionella Antigen - Final 10/07/18 20:30 Urine For Antigen Detection Streptococcus pneumoniae Antigen (M - Final 10/07/18 08:25 Urine - Urine Clean Catch Urine Culture - Final NO GROWTH OBTAINED Current Medications Albuterol Sulfate (Ventolin 0.083% Nebulizer Soln -) 1 amp NEB Q4H PRN PRN Reason: SHORT OF BREATH/WHEEZING Albuterol/Ipratropium (Duoneb -) 1 amp NEB RQID [facility] Last Admin: 10/12/18 15:51 Dose: 1 amp Docusate Sodium (Colace Liquid -) 200 mg PO DAILY PRN PRN Reason: CONSTIPATION Furosemide (Lasix Injection -) 40 mg IVPUSH DAILY [facility] Last Admin: 10/12/18 09:36 Dose: 40 mg Heparin Sodium (Porcine) (Heparin -) 5,000 unit SQ TID [facility] Last Admin: 10/12/18 13:32 Dose: 5,000 unit Midazolam HCl 100 mg/ Sodium (Chloride) 100 mls @ 1 mls/hr IVPB TITR [facility]; Protocol Last Admin: 10/12/18 17:20 Dose: Not Given Fluconazole (Diflucan 100 Mg/D5w Premixed Ivpb -) 50 mls @ 100 mls/hr IVPB DAILY [facility] Last Admin: 10/12/18 09:42 Dose: 100 mls/hr Fentanyl 500 mcg/ Dextrose 100 mls @ 20 mls/hr IVPB TITR [facility] Last Admin: 10/11/18 20:10 Dose: Not Given Cefazolin Sodium 2 gm/ (Dextrose) 50 mls @ 200 mls/hr IVPB Q6H [facility] Insulin Aspart (Novolog Vial Sliding Scale -) 1 vial SQ Q4H [facility]; Protocol Last Admin: 10/12/18 17:19 Dose: 8 units Insulin Detemir (Levemir Vial) 45 units SQ Q12H [facility] Last Admin: 10/12/18 09:43 Dose: 45 units Losartan Potassium (Cozaar -) 25 mg PO DAILY [facility] Last Admin: 10/12/18 09:34 Dose: 25 mg Methylprednisolone Sodium Succinate (Solu-Medrol -) 32 mg IVPUSH DAILY [facility] Last Admin: 10/12/18 09:37 Dose: 32 mg Pantoprazole Sodium (Protonix Iv) 40 mg IVPUSH DAILY [facility] Last Admin: 10/12/18 09:37 Dose: 40 mg Polyethylene Glycol (Miralax (For Daily Use) -) 17 gm PO BID [facility] Last Admin: 10/12/18 09:42 Dose: 17 gm Silver Sulfadiazine (Silvadene -) 1 applic TP BID [facility] a/p MSSA bacteremia- continue cefazolin trans thoracic echo unrevealing suspect skin source repeat blood cultures negative willl require nursing home iv antibiotics acute hypercapneic respiratory failure- morbid obesity JOEY -resolved zosyn allergy 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
[2018-10-12] MEDS ORDERED: PT OWN MED DRAWER 7, Y5N ONE (17:28)
[2018-10-12 19:13] LABS: URINE APPEARANCE SLCLOUDY; URINE BILIRUBIN NEGATIVE (<2.0 mg/dL); URINE COLOR YELLOW; URINE GLUCOSE (UA) 1+ (NEGATIVE); URINE KETONE NEGATIVE (NEGATIVE); URINE LEUK ESTERASE 1+ (NEGATIVE); URINE NITRITE NEGATIVE (NEGATIVE); URINE PROTEIN 1+ (NEGATIVE); URINE UROBILINOGEN NEGATIVE mg/dL (0.2-1.0)
[2018-10-12 19:23] LABS: URINE BACTERIA RARE /hpf (NONE SEEN); URINE MUCUS RARE
[2018-10-12] MEDS: CEFAZOLIN 2 GM/D5W 2 GM/50 ML ML IVPB SCH ×2 (22:20→22:28)
[2018-10-12] MEDS: SILVER SULFADIAZINE 1% TOP CREAM 50 GM JAR TP SCH (22:21)
--- NOTE | 2018-10-13 01:01 | PN ---
Progress Note, Physician Chief Complaint: Pt A&Ox3; no chest pain or dyspnea. History of Present Illness: he patient is a 63 year old female, with a significant PMH of hypertension, asthma, diastolic CHF, GERD, prior lower extremity DVT, morbid obesity, DM, anemia, abdominal fibroids, who presents to the emergency department with altered mental status. As per , the patient was noted to be fading in/ out of conversation yesterday. He states he called EMS this morning as the patient was unresponsive. He also states the patient has had malodorous urine for several days. As per EMS, patient blood sugar was in the 300s while en route to the ER. Found febrile on admission. - Current Medication List Current Medications: Active Medications Albuterol Sulfate (Ventolin 0.083% Nebulizer Soln -) 1 amp NEB Q4H PRN PRN Reason: SHORT OF BREATH/WHEEZING Albuterol/Ipratropium (Duoneb -) 1 amp NEB RQID [facility] Last Admin: 10/12/18 20:00 Dose: 1 amp Docusate Sodium (Colace Liquid -) 200 mg PO DAILY PRN PRN Reason: CONSTIPATION Furosemide (Lasix Injection -) 40 mg IVPUSH DAILY [facility] Last Admin: 10/12/18 09:36 Dose: 40 mg Heparin Sodium (Porcine) (Heparin -) 5,000 unit SQ TID [facility] Last Admin: 10/12/18 22:19 Dose: 5,000 unit Fluconazole (Diflucan 100 Mg/D5w Premixed Ivpb -) 50 mls @ 100 mls/hr IVPB DAILY [facility] Last Admin: 10/12/18 09:42 Dose: 100 mls/hr Cefazolin Sodium/Dextrose (Ancef 2 Gm Premixed Ivpb -) 2 gm in 50 mls @ 100 mls /hr IVPB Q6H-IV [facility] Last Admin: 10/12/18 22:28 Dose: Not Given Insulin Aspart (Novolog Vial Sliding Scale -) 1 vial SQ Q4H [facility]; Protocol Last Admin: 10/12/18 22:42 Dose: 4 units Insulin Detemir (Levemir Vial) 45 units SQ Q12H [facility] Last Admin: 10/12/18 22:42 Dose: 45 units Losartan Potassium (Cozaar -) 25 mg PO DAILY [facility] Last Admin: 10/12/18 09:34 Dose: 25 mg Methylprednisolone Sodium Succinate (Solu-Medrol -) 32 mg IVPUSH DAILY [facility] Last Admin: 10/12/18 09:37 Dose: 32 mg Pantoprazole Sodium (Protonix Iv) 40 mg IVPUSH DAILY [facility] Last Admin: 10/12/18 09:37 Dose: 40 mg Polyethylene Glycol (Miralax (For Daily Use) -) 17 gm PO BID [facility] Last Admin: 10/12/18 22:20 Dose: 17 gm Silver Sulfadiazine (Silvadene -) 1 applic TP BID [facility] Last Admin: 10/12/18 22:21 Dose: 1 applic - Objective Vital Signs: Vital Signs Temperature 98.7 F 10/12/18 22:00 Pulse Rate 86 10/13/18 00:00 Respiratory Rate 24 H 10/13/18 00:00 Blood Pressure 144/69 10/13/18 00:00 O2 Sat by Pulse Oximetry (%) 94 L 10/12/18 18:31 Constitutional: Yes: Calm Eyes: Yes: WNL HENT: Yes: WNL Neck: Yes: WNL Cardiovascular: Yes: S1, S2 Respiratory: Yes: Diminished, Rales Gastrointestinal: Yes: Soft, Abdomen, Obese ...Rectal Exam: Yes: Deferred Genitourinary: No: Anuria Breast(s): Yes: WNL Musculoskeletal: Yes: Back Pain, Joint Stiffness Extremities: Yes: WNL Edema: No Peripheral Pulses WNL: Yes Integumentary: Yes: WNL Neurological: Yes: WNL Psychiatric: Yes: WNL Labs: CBC, BMP 10/12/18 05:30 10/12/18 05:30 INR, PTT INR 1.42 (0.83-1.09) H 10/07/18 08:30 Abnormal Lab Results 10/12/18 10/12/18 10/12/18 05:30 05:30 06:00 WBC 12.2 H Hgb 9.7 L MCV 72.7 L MCH 20.2 L MCHC 27.8 L RDW 21.0 H Absolute Neuts (auto) 10.4 H Neutrophils % 85.3 H ABG pCO2 at Pt Temp 65.9 H* D ABG pO2 at Pt Temp 108.0 H ABG HCO3 35.2 H ABG O2 Content 12.2 L ABG Base Excess 8.6 H Carbon Dioxide 37 H Anion Gap 5 L BUN 35 H Random Glucose 223 H Hemoglobin A1c % Albumin 2.2 L Urine Protein Urine Glucose (UA) Urine Blood Ur Leukocyte Esterase 10/12/18 10/12/18 07:30 18:30 WBC Hgb MCV MCH MCHC RDW Absolute Neuts (auto) Neutrophils % ABG pCO2 at Pt Temp ABG pO2 at Pt Temp ABG HCO3 ABG O2 Content ABG Base Excess Carbon Dioxide Anion Gap BUN Random Glucose Hemoglobin A1c % 12.2 H Albumin Urine Protein 1+ H D Urine Glucose (UA) 1+ H Urine Blood 3+ H Ur Leukocyte Esterase 1+ H - ....Imaging Chest X-ray: Image Reviewed (CHF) Other: Image Reviewed (telemetry: NSR; no arrhythmias) Problem List - Problems (1) Sleep apnea Code(s): G47.30 - SLEEP APNEA, UNSPECIFIED (2) Acute on chronic diastolic CHF (congestive heart failure) Assessment/Plan: Elevated BNP; + JVP. CXR: bilateral pleural effusion. Septic; BP stable. Now on losartan and furosemide. ECHO: normal LVEF. F/u BUN/Cr, electrolytes, daily weight, Is and Os. Code(s): I50.33 - ACUTE ON CHRONIC DIASTOLIC (CONGESTIVE) HEART FAILURE (3) Morbid obesity Assessment/Plan: The need for diet modifcation and weight is paramount; this was discussed with pt. Code(s): E66.01 - MORBID (SEVERE) OBESITY DUE TO EXCESS CALORIES (4) [place] cardiac risk >20% in next 10 years Assessment/Plan: aggressive control of lipids (f/u lipid panel; TSH WNL) and glucose. Coronary artery evaluation when stable (stress MIBI),especially if unable to obtain results of stress test reported by pt to have been done withing the past year at [facility] in preparation for uterine fibroid surgery (the surgery which was ?never done). Code(s): Z91.89 - OTH PERSONAL RISK FACTORS, NOT ELSEWHERE CLASSIFIED (5) Elevated troponin Assessment/Plan: mildly increased TNI (0.07), with normal CKMB. Normal EKG. Likely demand ischemia from sepsis, CHF, respiratory failure. F/u TNI and EKG serially. Stress MIBI when stable. Code(s): R74.8 - ABNORMAL LEVELS OF OTHER SERUM ENZYMES (6) Sepsis Assessment/Plan: Leukocytosis; febrile. Likely PNA. Antibiotics per ID; f/u cultures. Code(s): A41.9 - SEPSIS, UNSPECIFIED ORGANISM Qualifiers: Sepsis type: sepsis due to unspecified organism Qualified Code(s): A41.9 - Sepsis, unspecified organism (7) Diabetes Assessment/Plan: HGBA1c>12 Code(s): E11.9 - TYPE 2 DIABETES MELLITUS WITHOUT COMPLICATIONS Assessment/Plan CCU time spent examining pt, formulating plan: 35 minutes.
[2018-10-13] MEDS: CEFAZOLIN 2 GM/D5W 2 GM/50 ML ML IVPB SCH ×4 (02:12→21:40)
[2018-10-13] MEDS: INSULIN SLIDING SCALE (NOVOLOG) 1 VIAL SQ SCH ×6 (02:24→19:00)
[2018-10-13] MEDS: HEPARIN NA (PORCINE) 5,000 UNITS/ML 1ML VIAL SQ SCH ×3 (05:31→21:40)
[2018-10-13 06:36] LABS: BASO % 0.2 % (0-2.0); EOS % 0.9 % (0-4.5); HEMATOCRIT 31.6 % (32.4-45.2); HEMOGLOBIN 9.6 GM/dL (10.7-15.3); LYMPH % 12.9 % (8-40); MCH 21.9 pg (25.7-33.7); MCHC 30.4 g/dl (32.0-36.0); MEAN PLT VOLUME 9.3 fl (7.5-11.1); MONO % 8.3 % (3.8-10.2); NEUT % 77.7 % (42.8-82.8); PLATELET COUNT 237 K/MM3 (134-434); RDW 20.2 % (11.6-15.6); WHITE BLOOD COUNT 10.9 K/mm3 (4.0-10.0)
[2018-10-13 07:05] LABS: ALBUMIN 2.1 g/dl (3.4-5.0); ALK PHOS 56 U/L (45-117); ANION GAP 4 MMOL/L (8-16); BILIRUBIN,TOTAL 0.3 mg/dL (0.2-1); BLOOD UREA NITROGEN 30 mg/dL (7-18); CALCIUM 8.7 mg/dL (8.5-10.1); CHLORIDE 97 mmol/L (98-107); CO2 39 mmol/L (21-32); CREATININE 0.7 mg/dL (0.55-1.3); GLUCOSE,RANDOM 106 mg/dL (74-106); MAGNESIUM 2.2 mg/dL (1.8-2.4); PHOSPHOROUS 3.8 mg/dL (2.5-4.9); SGOT/AST 35 U/L (15-37); SGPT/ALT 22 U/L (13-61); SODIUM 140 mmol/L (136-145); TOT PROT 6.2 g/dl (6.4-8.2)
[2018-10-13] MEDS ORDERED: INSULIN (LEVEMIR) 100 UNITS/ML UNITS SQ SCH ×2 (07:23→07:24)
[2018-10-13] MEDS: ALBUTEROL SO4 2.5/IPRATROPIUM 0.5 INH SOL 3 ML VIAL.NEB. NEB SCH ×4 (08:50→20:30)
[2018-10-13] MEDS: INSULIN (LEVEMIR) 100 UNITS/ML UNITS SQ SCH ×2 (09:00→22:30)
[2018-10-13] MEDS: PANTOPRAZOLE SODIUM 40 MG VIAL IVPUSH SCH (09:17)
[2018-10-13] MEDS: FUROSEMIDE 40 MG/4 ML INJECTABLE VIAL IVPUSH SCH (09:17)
[2018-10-13] MEDS: LOSARTAN POTASSIUM 25 MG TABLET PO SCH (09:18)
[2018-10-13] MEDS: methylPREDNISolone NA SUCC 40 MG/1 ML VIAL IVPUSH SCH (09:20)
[2018-10-13] MEDS: POLYETHYLENE GLYCOL 3350 119 GM BTL PO SCH (09:20)
[2018-10-13] MEDS: FLUCONAZOLE 100 MG/D5W 50 ML IVPB SCH (10:25)
[2018-10-13] MEDS: SILVER SULFADIAZINE 1% TOP CREAM 50 GM JAR TP SCH (11:31)
--- NOTE | 2018-10-13 11:32 | PN ---
Progress Note (short form) - Note Progress Note: alert no complaints upright in bed looks comfortable Vital Signs Period Temp Pulse Resp BP Sys/Jones Pulse Ox Last 24 Hr 98 F-99.5 F 78-91 16-47 120-144/61-75 94-98 cor-rrr lungs decreased bs at bases abd soft,nt ext no edema unable to see her back- at this time laorse in place CBC, BMP 10/13/18 05:30 10/13/18 05:30 Microbiology 10/09/18 11:35 Blood - Peripheral Venous Blood Culture - Preliminary NO GROWTH OBTAINED AFTER 72 HOURS, INCUBATION TO CONTINUE FOR 2 DAYS. 10/09/18 11:25 Blood - Peripheral Venous Blood Culture - Preliminary NO GROWTH OBTAINED AFTER 72 HOURS, INCUBATION TO CONTINUE FOR 2 DAYS. 10/08/18 15:30 Nares - Mrsa Screen - Left MRSA Screen - Final S Aureus 10/07/18 17:00 Sputum - Endotrachea Suction/Ventilator Gram Stain - Final 10/07/18 17:00 Sputum - Endotrachea Suction/Ventilator Sputum Culture - Final NORMAL RESPIRATORY DIOR 10/08/18 15:30 Nares - Mrsa Screen - Right MRSA Screen - Final NO MRSA ISOLATED 10/07/18 08:25 Blood - Peripheral Venous Blood Culture - Final Presumptive Mssa (Pbp2a Neg) 10/07/18 08:25 Blood - Peripheral Venous Blood Culture - Final Staphylococcus Aureus 10/07/18 20:30 Urine For Antigen Detection Legionella Antigen - Final 10/07/18 20:30 Urine For Antigen Detection Streptococcus pneumoniae Antigen (M - Final 10/07/18 08:25 Urine - Urine Clean Catch Urine Culture - Final NO GROWTH OBTAINED a/p MSSA bacteremia- continue cefazolin trans thoracic echo unrevealing suspect skin source repeat blood cultures negative willl require usp iv antibiotics acute hypercapneic respiratory failure- morbid obesity JOEY -resolved zosyn allergy 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
--- NOTE | 2018-10-13 11:49 | PN ---
Progress Note, Physician History of Present Illness: seen and examined in ICU - Current Medication List Current Medications: Active Medications Albuterol Sulfate (Ventolin 0.083% Nebulizer Soln -) 1 amp NEB Q4H PRN PRN Reason: SHORT OF BREATH/WHEEZING Albuterol/Ipratropium (Duoneb -) 1 amp NEB RQID [facility] Last Admin: 10/13/18 08:50 Dose: 1 amp Docusate Sodium (Colace Liquid -) 200 mg PO DAILY PRN PRN Reason: CONSTIPATION Furosemide (Lasix Injection -) 40 mg IVPUSH DAILY [facility] Last Admin: 10/13/18 09:17 Dose: 40 mg Heparin Sodium (Porcine) (Heparin -) 5,000 unit SQ TID [facility] Last Admin: 10/13/18 05:31 Dose: 5,000 unit Fluconazole (Diflucan 100 Mg/D5w Premixed Ivpb -) 50 mls @ 100 mls/hr IVPB DAILY [facility] Last Admin: 10/13/18 10:25 Dose: 100 mls/hr Cefazolin Sodium/Dextrose (Ancef 2 Gm Premixed Ivpb -) 2 gm in 50 mls @ 100 mls /hr IVPB Q6H-IV [facility] Last Admin: 10/13/18 09:00 Dose: 100 mls/hr Insulin Aspart (Novolog Vial Sliding Scale -) 1 vial SQ Q4H [facility]; Protocol Last Admin: 10/13/18 07:36 Dose: Not Given Insulin Detemir (Levemir Vial) 45 units SQ BID@0700,2200 [facility] Last Admin: 10/13/18 09:00 Dose: 45 units Losartan Potassium (Cozaar -) 25 mg PO DAILY [facility] Last Admin: 10/13/18 09:18 Dose: 25 mg Methylprednisolone Sodium Succinate (Solu-Medrol -) 32 mg IVPUSH DAILY [facility] Last Admin: 10/13/18 09:20 Dose: 32 mg Pantoprazole Sodium (Protonix Iv) 40 mg IVPUSH DAILY [facility] Last Admin: 10/13/18 09:17 Dose: 40 mg Polyethylene Glycol (Miralax (For Daily Use) -) 17 gm PO BID [facility] Last Admin: 10/13/18 09:20 Dose: Not Given Silver Sulfadiazine (Silvadene -) 1 applic TP BID [facility] Last Admin: 10/13/18 11:31 Dose: Not Given - Objective Vital Signs: Vital Signs Temperature 98.9 F 10/13/18 10:00 Pulse Rate 87 10/13/18 11:40 Respiratory Rate 23 H 10/13/18 10:00 Blood Pressure 130/66 10/13/18 10:00 O2 Sat by Pulse Oximetry (%) 98 10/13/18 11:40 Eyes: Yes: WNL, Conjunctiva Clear, EOM Intact HENT: Yes: WNL, Atraumatic, Normocephalic Neck: Yes: WNL, Supple, Trachea Midline Cardiovascular: Yes: WNL, Regular Rate and Rhythm Respiratory: Yes: WNL, Regular, CTA Bilaterally Gastrointestinal: Yes: WNL, Normal Bowel Sounds Genitourinary: Yes: WNL Musculoskeletal: Yes: WNL Extremities: Yes: WNL Edema: Yes Integumentary: Yes: WNL Neurological: Yes: WNL, Alert, Oriented ...Motor Strength: WNL Psychiatric: Yes: WNL Labs: CBC, BMP 10/13/18 05:30 10/13/18 05:30 INR, PTT INR 1.42 (0.83-1.09) H 10/07/18 08:30 Assessment/Plan Problems (1) Sleep apnea Code(s): G47.30 - SLEEP APNEA, UNSPECIFIED (2) Acute on chronic diastolic CHF (congestive heart failure) Assessment/Plan: Elevated BNP; + JVP. CXR: bilateral pleural effusion. Septic; BP stable. Now on losartan and furosemide. ECHO: normal LVEF. F/u BUN/Cr, electrolytes, daily weight, Is and Os. Code(s): I50.33 - ACUTE ON CHRONIC DIASTOLIC (CONGESTIVE) HEART FAILURE (3) Morbid obesity Assessment/Plan: The need for diet modifcation and weight is paramount; this was discussed with pt. Code(s): E66.01 - MORBID (SEVERE) OBESITY DUE TO EXCESS CALORIES (4) [place] cardiac risk >20% in next 10 years Assessment/Plan: aggressive control of lipids (f/u lipid panel; TSH WNL) and glucose. Coronary artery evaluation when stable (stress MIBI),especially if unable to obtain results of stress test reported by pt to have been done withing the past year at [facility] in preparation for uterine fibroid surgery (the surgery which was ?never done). Code(s): Z91.89 - OT PERSONAL RISK FACTORS, NOT ELSEWHERE CLASSIFIED (5) Elevated troponin Assessment/Plan: mildly increased TNI (0.07), with normal CKMB. Normal EKG. Likely demand ischemia from sepsis, CHF, respiratory failure. F/u TNI and EKG serially. Stress MIBI when stable. Code(s): R74.8 - ABNORMAL LEVELS OF OTHER SERUM ENZYMES (6) Sepsis Assessment/Plan: Leukocytosis improving ; afebrile. diflucan changed to PO Antibiotics per ID; f/u cultures. Code(s): A41.9 - SEPSIS, UNSPECIFIED ORGANISM Qualifiers: Sepsis type: sepsis due to unspecified organism Qualified Code(s): A41.9 - Sepsis, unspecified organism (7) Diabetes Assessment/Plan: HGBA1c>12 Code(s): E11.9 - TYPE 2 DIABETES MELLITUS WITHOUT COMPLICATIONS Assessment/Plan CCU time spent examining pt, formulating plan: 35 minutes.
--- NOTE | 2018-10-13 12:06 | PN ---
Teaching Attending Note Name of Resident: Dawn Mandel ATTENDING PHYSICIAN STATEMENT I saw and evaluated the patient. I reviewed the resident's note and discussed the case with the resident. I agree with the resident's findings and plan as documented. SUBJECTIVE: Pt seen and examined in the ICU. Remains on HFOT with 50L/min, 40% FiO2. States breathing slightly improved. Not requiring BiPAP. Diuresed well with lasix yesterday. OBJECTIVE: Vital Signs Period Temp Pulse Resp BP Sys/Jones Pulse Ox Last 24 Hr 98 F-99.5 F 78-91 16-47 120-144/61-75 94-98 Intake & Output 10/10/18 10/11/18 10/12/18 10/13/18 23:59 23:59 23:59 23:59 Intake Total 1684 1232 740 200 Output Total 950 3200 4500 900 Balance 734 -1968 -3760 -700 Weight 184.657 kg 186.018 kg 179.764 kg 178.29 kg Gen: mildly tachypneic on HFOT Heart: RRR Lung: distant breath sounds Abd: soft, nontender, obese Ext: less edema CBC, BMP 10/13/18 05:30 10/13/18 05:30 Active Medications Albuterol Sulfate (Ventolin 0.083% Nebulizer Soln -) 1 amp NEB Q4H PRN PRN Reason: SHORT OF BREATH/WHEEZING Albuterol/Ipratropium (Duoneb -) 1 amp NEB RQID [facility] Last Admin: 10/13/18 08:50 Dose: 1 amp Docusate Sodium (Colace Liquid -) 200 mg PO DAILY PRN PRN Reason: CONSTIPATION Furosemide (Lasix Injection -) 40 mg IVPUSH DAILY [facility] Last Admin: 10/13/18 09:17 Dose: 40 mg Heparin Sodium (Porcine) (Heparin -) 5,000 unit SQ TID [facility] Last Admin: 10/13/18 05:31 Dose: 5,000 unit Fluconazole (Diflucan 100 Mg/D5w Premixed Ivpb -) 50 mls @ 100 mls/hr IVPB DAILY [facility] Last Admin: 10/13/18 10:25 Dose: 100 mls/hr Cefazolin Sodium/Dextrose (Ancef 2 Gm Premixed Ivpb -) 2 gm in 50 mls @ 100 mls /hr IVPB Q6H-IV [facility] Last Admin: 10/13/18 09:00 Dose: 100 mls/hr Insulin Aspart (Novolog Vial Sliding Scale -) 1 vial SQ Q4H [facility]; Protocol Last Admin: 10/13/18 11:55 Dose: 2 units Insulin Detemir (Levemir Vial) 45 units SQ BID@0700,2200 [facility] Last Admin: 10/13/18 09:00 Dose: 45 units Losartan Potassium (Cozaar -) 25 mg PO DAILY [facility] Last Admin: 10/13/18 09:18 Dose: 25 mg Methylprednisolone Sodium Succinate (Solu-Medrol -) 32 mg IVPUSH DAILY [facility] Last Admin: 10/13/18 09:20 Dose: 32 mg Pantoprazole Sodium (Protonix Iv) 40 mg IVPUSH DAILY [facility] Last Admin: 10/13/18 09:17 Dose: 40 mg Polyethylene Glycol (Miralax (For Daily Use) -) 17 gm PO BID [facility] Last Admin: 10/13/18 09:20 Dose: Not Given ASSESSMENT AND PLAN: Acute on Chronic Hypoxic and Hypercapneic Respiratory Failure Volume Overload Acute on Chronic Diastolic Heart Failure Acute Asthma Exacerbation Cellulitis MSSA Bacteremia Sepsis Lactic Acidosis +Troponins likely [place] Ischemia Acute Kidney Injury Morbid Obesity Obstructive Sleep Apnea/Obesity Hypoventilation Syndrome HTN DM h/o DVT - taper HFOT, transition to nasal cannula - continue lasix - monitor urine output, creatinine - keep net negative - complete steroid course - inhaled bronchodilators standing and PRN - antibiotics per ID - rehab/PT - DVT/GI prophylaxis - can monitor on floor if tolerating nasal cannula critical care time spent in reviewing chart, evaluating patient and formulating plan - 35 minutes.
--- NOTE | 2018-10-13 12:41 | PN ---
Progress Note, CREDIT ADMINISTRATION SPECIALIST - Note Progress Note: Selected Entries 10/13/18 10/13/18 10/13/18 00:00 02:00 04:00 Breakfast Temperature 98.6 F Respiratory 24 H 47 H 22 H Rate Respiratory Effort 10/13/18 10/13/18 10/13/18 06:00 07:39 09:23 Breakfast 50% Temperature 98 F 98.7 F Respiratory 20 21 H Rate Respiratory Non-Labored Effort 10/13/18 10/13/18 10:00 12:00 Breakfast Temperature 98.9 F Respiratory 23 H 24 H Rate Respiratory Effort Pt is doing quite well with po diet. No overt signs of aspiration. Pt on high- flow.
[2018-10-13] MEDS ORDERED: ACETAMINOPHEN 1000 MG/100 ML VIAL (NON FORMULARY) IVPB ONE (16:15)
--- NOTE | 2018-10-13 16:53 | PN ---
Physical Exam: SUBJECTIVE: Patient seen and examined this morning. Breathing continues to improve. Tolerated HFOT overnight. Experiences a nonproductive cough, otherwise No new complaints, No overnight events. Denies any fevers, chills, chest pain, SOB, nausea, vomiting, diarrhea, constipation. OBJECTIVE: Vital Signs Period Temp Pulse Resp BP Sys/Jones Pulse Ox Last 24 Hr 98 F-99.5 F 74-91 16-47 115-144/59-75 94-98 GENERAL: A&Ox3, NAD, sitting with HOB elevated eating breakfast HEAD: NCAT EYES: PERRL, EOMI ENT: moist mucous membranes NECK: Supple LUNGS: Tachypneic, Diminished breath sounds at the bases, Wheezes in the upper lobes HEART: Regular rate and rhythm, S1, S2 without murmur ABDOMEN: Obese, Soft, nontender, nondistended, + bowel sounds, no guarding EXTREMITIES: 2+ pulses, Trace edema NEUROLOGICAL: Cranial nerves II through XII grossly intact. Normal speech SKIN: Warm, dry Laboratory Results - last 24 hr 10/12/18 10/13/18 10/13/18 18:30 05:30 05:30 WBC 10.9 H RBC 4.40 Hgb 9.6 L Hct 31.6 L MCV 72.0 L MCH 21.9 L MCHC 30.4 L RDW 20.2 H Plt Count 237 MPV 9.3 Absolute Neuts (auto) 8.4 H Neutrophils % 77.7 Lymphocytes % 12.9 D Monocytes % 8.3 Eosinophils % 0.9 D Basophils % 0.2 Nucleated RBC % 0 Sodium 140 Potassium 4.0 Chloride 97 L Carbon Dioxide 39 H Anion Gap 4 L BUN 30 H Creatinine 0.7 Creat Clearance w eGFR > 60 Random Glucose 106 Calcium 8.7 Phosphorus 3.8 Magnesium 2.2 Total Bilirubin 0.3 AST 35 ALT 22 Alkaline Phosphatase 56 Total Protein 6.2 L Albumin 2.1 L Urine Color Yellow Urine Appearance Slcloudy Urine pH 6.0 Ur Specific Cornish 1.016 Urine Protein 1+ H D Urine Glucose (UA) 1+ H Urine Ketones Negative Urine Blood 3+ H Urine Nitrite Negative Urine Bilirubin Negative Urine Urobilinogen Negative Ur Leukocyte Esterase 1+ H Urine WBC (Auto) 22 Urine RBC (Auto) 1235 Urine Bacteria Rare Urine Mucus Rare Microbiology 10/09/18 11:35 Blood - Peripheral Venous Blood Culture - Preliminary NO GROWTH OBTAINED AFTER 96 HOURS, INCUBATION TO CONTINUE FOR 1 DAYS. 10/09/18 11:25 Blood - Peripheral Venous Blood Culture - Preliminary NO GROWTH OBTAINED AFTER 96 HOURS, INCUBATION TO CONTINUE FOR 1 DAYS. 10/08/18 15:30 Nares - Mrsa Screen - Left MRSA Screen - Final S Aureus 10/07/18 17:00 Sputum - Endotrachea Suction/Ventilator Gram Stain - Final 10/07/18 17:00 Sputum - Endotrachea Suction/Ventilator Sputum Culture - Final NORMAL RESPIRATORY DIOR 10/08/18 15:30 Nares - Mrsa Screen - Right MRSA Screen - Final NO MRSA ISOLATED 10/07/18 08:25 Blood - Peripheral Venous Blood Culture - Final Presumptive Mssa (Pbp2a Neg) 10/07/18 08:25 Blood - Peripheral Venous Blood Culture - Final Staphylococcus Aureus 10/07/18 20:30 Urine For Antigen Detection Legionella Antigen - Final 10/07/18 20:30 Urine For Antigen Detection Streptococcus pneumoniae Antigen (M - Final 10/07/18 08:25 Urine - Urine Clean Catch Urine Culture - Final NO GROWTH OBTAINED Active Medications Albuterol Sulfate (Ventolin 0.083% Nebulizer Soln -) 1 amp NEB Q4H PRN PRN Reason: SHORT OF BREATH/WHEEZING Albuterol/Ipratropium (Duoneb -) 1 amp NEB RQID [facility] Last Admin: 10/13/18 12:00 Dose: 1 amp Docusate Sodium (Colace Liquid -) 200 mg PO DAILY PRN PRN Reason: CONSTIPATION Furosemide (Lasix Injection -) 40 mg IVPUSH DAILY [facility] Last Admin: 10/13/18 09:17 Dose: 40 mg Heparin Sodium (Porcine) (Heparin -) 5,000 unit SQ TID [facility] Last Admin: 10/13/18 15:00 Dose: 5,000 unit Fluconazole (Diflucan 100 Mg/D5w Premixed Ivpb -) 50 mls @ 100 mls/hr IVPB DAILY [facility] Last Admin: 10/13/18 10:25 Dose: 100 mls/hr Cefazolin Sodium/Dextrose (Ancef 2 Gm Premixed Ivpb -) 2 gm in 50 mls @ 100 mls /hr IVPB Q6H-IV [facility] Last Admin: 10/13/18 15:19 Dose: 100 mls/hr Insulin Aspart (Novolog Vial Sliding Scale -) 1 vial SQ Q4H [facility]; Protocol Last Admin: 10/13/18 11:55 Dose: 2 units Insulin Detemir (Levemir Vial) 45 units SQ BID@0700,2200 [facility] Last Admin: 10/13/18 09:00 Dose: 45 units Losartan Potassium (Cozaar -) 25 mg PO DAILY [facility] Last Admin: 10/13/18 09:18 Dose: 25 mg Methylprednisolone Sodium Succinate (Solu-Medrol -) 32 mg IVPUSH DAILY [facility] Last Admin: 10/13/18 09:20 Dose: 32 mg Pantoprazole Sodium (Protonix Iv) 40 mg IVPUSH DAILY [facility] Last Admin: 10/13/18 09:17 Dose: 40 mg Polyethylene Glycol (Miralax (For Daily Use) -) 17 gm PO BID [facility] Last Admin: 10/13/18 09:20 Dose: Not Given ASSESSMENT/PLAN: 63 y/o F with PMHx of HTN, Asthma, Diastolic CHF, GERD, Prior lower extremity DVT, morbid obesity, DM, anemia, who was found to have Acute hypoxic hypercapnic respiratory distress, was intubated, sedated and admitted to ICU #Pulmonary Acute hypoxic hypercapnec respiratory failure -Possibly due to Acute asthma exacerbation, R/O PNA -CXR (10/13): Since the prior study of 10/12/2018, there is still a prominent mediastinum with congestive changes but the lungs appear slightly better expanded. -Extubated on 10/11 -Transitioned to Nasal Cannula 4L -Continue Albuterol Neb, Albuterol Ipatropium, Methylprednisolone -Continue 40mg lasix IV daily -Urine AG,Influenza negative -MRSA Screen + -Continue Cefazolin #Cardio Acute on chronic DCHF -ECHO: Regional WMA cannot be excluded, EF=50%, Mild MR -Continue Lasix, Monitor I&Os, Daily weights -Cardiology (Dr. Craig) consulted, Appreciate rec's Hypotension -Hx of HTN -Maintaining MAP > 65 -Continue Losartan 25mg PO Daily Elevated Troponins -Likely Demand Ischemia from sepsis, CHF -0.07-->0.10-->0.06 -EKG: NSR, VR 90, QTc 459 # Neuro Acute metabolic encephalopathy -Extubated 10/11 -B12, Folic acid, TSH WNL -UTox negative -Alcohol level <3.0 # ID Septic shock, resolved -Temp 102, Tachycardia, WBC 19, Hypotensive not responsive to fluids on admission -Lactic acidosis, resolved (2.6 --> 1.9) Diffuse skin rash on buttocks with stage I ulcer on buttocks B/L -R/O fungal infection -Urine AG,Influenza negative -MRSA Screen + -Initial Blood cx presumptive MSSA, Staph Aureus; Repeat Blood Cx NGTD -UA (10/12): 1+ Protein, 1+ Glucose, 3+ Blood, 1+ LE, 22 WBC -ID (Dr. Contreras) Consulted, Appreciate rec's -Given Ertapenem in ED; Continue Cefazolin -Change Diflucan to PO #Hematology Microcytic anemia -Likely due to Fibroid -H/H stable, no active signs of bleeding -Continue to monitor H/O DVT -Duplex: No obvious DVT is identified involving either leg. -Continue DVT PPx #GI GERD -Continue Pantoprazole Constipation -Continue Bowel regimen with Colace, Miralax -Abdoominal US: Limited exam due to body habitus. Diffuse hepatic steatosis. Stable minimal to mild splenomegaly. No obvious evidence of cholelithiasis or acute cholecystitis. #Nephrology JOEY, Resolved -UA (10/12): 1+ Protein, 1+ Glucose, 3+ Blood, 1+ LE, 22 WBC -Patient denies any dysuria but previously reported foul smelling urine -Continue to monitor for signs of infection #Endocrine IDDM -BGM ISS ACHS -Continue Levemir 45 BID SQ #FEN -PO Fluids -Lytes wnl -Soft diet #PPx -DVT: Heparin TID -GI: Pantoprazole Code Status:Full code Dispo: Transfer to med-surg Visit type - Emergency Visit Emergency Visit: Yes ED Registration Date: 10/07/18 Care time: The patient presented to the Emergency Department on the above date and was hospitalized for further evaluation of their emergent condition. - New Patient This patient is new to me today: Yes Date on this admission: 10/13/18 - Critical Care Critical Care patient: Yes Total Critical Care Time (in minutes): 36 Critical Care Statement: The care of this patient involved high complexity decision making to prevent further life threatening deterioration of the patient 's condition and/or to evaluate & treat vital organ system(s) failure or risk of failure.
--- NOTE | 2018-10-13 21:53 | PN ---
Progress Note (short form) - Note Progress Note: patient seen and examined in ICU patient extubated / awake / sat 98% Intake & Output 10/08/18 10/09/18 10/10/18 10/11/18 23:59 23:59 23:59 23:59 Intake Total 2200 1467 1684 1232 Output Total 900 8068 745 7975 Balance 1300 -133 734 -968 Weight 404 lb 407 lb 1.6 oz 410 lb 1.6 oz Vital Signs Period Temp Pulse Resp BP Sys/Jones Pulse Ox Last 24 Hr 98 F-99.3 F 74-98 18-47 115-144/55-71 98-98 morbidly obese female O2 in place extubated heart S1/S2 lungs grossly clear no wheezing obese abdomen ext ++ edema with chronic changes CBC, BMP 10/11/18 05:15 10/11/18 05:15 CBC, BMP 10/10/18 05:30 10/10/18 05:30 Microbiology 10/09/18 11:35 Blood - Peripheral Venous Blood Culture - Preliminary NO GROWTH OBTAINED AFTER 96 HOURS, INCUBATION TO CONTINUE FOR 1 DAYS. 10/09/18 11:25 Blood - Peripheral Venous Blood Culture - Preliminary NO GROWTH OBTAINED AFTER 96 HOURS, INCUBATION TO CONTINUE FOR 1 DAYS. 10/08/18 15:30 Nares - Mrsa Screen - Left MRSA Screen - Final Mr S Aureus 10/07/18 17:00 Sputum - Endotrachea Suction/Ventilator Gram Stain - Final 10/07/18 17:00 Sputum - Endotrachea Suction/Ventilator Sputum Culture - Final NORMAL RESPIRATORY DIOR 10/08/18 15:30 Nares - Mrsa Screen - Right MRSA Screen - Final NO MRSA ISOLATED 10/07/18 08:25 Blood - Peripheral Venous Blood Culture - Final Presumptive Mssa (Pbp2a Neg) 10/07/18 08:25 Blood - Peripheral Venous Blood Culture - Final Staphylococcus Aureus 10/07/18 20:30 Urine For Antigen Detection Legionella Antigen - Final 10/07/18 20:30 Urine For Antigen Detection Streptococcus pneumoniae Antigen (M - Final 10/07/18 08:25 Urine - Urine Clean Catch Urine Culture - Final NO GROWTH OBTAINED Active Medications Albuterol Sulfate (Ventolin 0.083% Nebulizer Soln -) 1 amp NEB Q4H PRN PRN Reason: SHORT OF BREATH/WHEEZING Albuterol/Ipratropium (Duoneb -) 1 amp NEB RQID [facility] Last Admin: 10/11/18 20:36 Dose: 1 amp Docusate Sodium (Colace Liquid -) 200 mg PO DAILY PRN PRN Reason: CONSTIPATION Furosemide (Lasix Injection -) 40 mg IVPUSH DAILY [facility] Heparin Sodium (Porcine) (Heparin -) 5,000 unit SQ TID [facility] Last Admin: 10/11/18 21:13 Dose: 5,000 unit Midazolam HCl 100 mg/ Sodium (Chloride) 100 mls @ 1 mls/hr IVPB TITR [facility]; Protocol Last Admin: 10/11/18 16:38 Dose: Not Given Fluconazole (Diflucan 100 Mg/D5w Premixed Ivpb -) 50 mls @ 100 mls/hr IVPB DAILY [facility] Last Admin: 10/11/18 11:15 Dose: 100 mls/hr Fentanyl 500 mcg/ Dextrose 100 mls @ 20 mls/hr IVPB TITR [facility] Last Admin: 10/11/18 20:10 Dose: Not Given Cefazolin Sodium 3 gm/ (Dextrose) 100 mls @ 200 mls/hr IVPB Q8H-IV [facility] Last Admin: 10/11/18 17:11 Dose: 200 mls/hr Insulin Aspart (Novolog Vial Sliding Scale -) 1 vial SQ Q4H [facility]; Protocol Last Admin: 10/11/18 21:18 Dose: 6 units Insulin Detemir (Levemir Vial) 45 units SQ Q12H [facility] Last Admin: 10/11/18 21:17 Dose: 45 units Losartan Potassium (Cozaar -) 25 mg PO DAILY [facility] Last Admin: 10/11/18 16:39 Dose: Not Given Methylprednisolone Sodium Succinate (Solu-Medrol -) 32 mg IVPUSH DAILY [facility] Last Admin: 10/11/18 13:08 Dose: 32 mg Pantoprazole Sodium (Protonix Iv) 40 mg IVPUSH DAILY [facility] Last Admin: 10/11/18 10:01 Dose: 40 mg Polyethylene Glycol (Miralax (For Daily Use) -) 17 gm PO BID [facility] Last Admin: 10/11/18 21:12 Dose: Not Given 63 yo female w/ pmh of HTN, asthma, diastolic CHF, GERD, prior lower extremity DVT, morbid obesity, DM, anemia, abdominal fibroid, BIBA for evaluation of 1 day history of altered mental status. Patient required intubation in ER due to acute hypoxic / hypercapneic respiratory failure, after intubation became hypotensive requiring fluid resuscitation and pressor for support. She is currently off pressors, extubated and improved breathing. # acute on chronic resp failure hypoxic / hypercapneic / LYLY with hypoventilation/ HFpEF / Asthma extubated continue lasix / nebulizer/ steroids IV / PPi # Sepsis r/o pna lactic acidosis resolved emperic abx - appreciate ID # DM sliding scale # HTN adjust meds as needed # CAD elevated TNI -- demand ischemia trend Problem List - Problems (1) Respiratory failure with hypercapnia Code(s): J96.92 - RESPIRATORY FAILURE, UNSPECIFIED WITH HYPERCAPNIA (2) Sepsis Code(s): A41.9 - SEPSIS, UNSPECIFIED ORGANISM Qualifiers: Sepsis type: sepsis due to unspecified organism Qualified Code(s): A41.9 - Sepsis, unspecified organism (3) JOEY (acute kidney injury) Code(s): N17.9 - ACUTE KIDNEY FAILURE, UNSPECIFIED (4) Respiratory distress Code(s): R06.03 - ACUTE RESPIRATORY DISTRESS (5) Elevated troponin Code(s): R74.8 - ABNORMAL LEVELS OF OTHER SERUM ENZYMES (6) Hypoxia Code(s): R09.02 - HYPOXEMIA (7) Sleep apnea Code(s): G47.30 - SLEEP APNEA, UNSPECIFIED (8) Acute on chronic diastolic CHF (congestive heart failure) Code(s): I50.33 - ACUTE ON CHRONIC DIASTOLIC (CONGESTIVE) HEART FAILURE (9) Congestive heart disease Code(s): I50.9 - HEART FAILURE, UNSPECIFIED (10) Elevated brain natriuretic peptide (BNP) level Code(s): R79.89 - OTHER SPECIFIED ABNORMAL FINDINGS OF BLOOD CHEMISTRY (11) HTN (hypertension) Code(s): I10 - ESSENTIAL (PRIMARY) HYPERTENSION (12) Morbid obesity Code(s): E66.01 - MORBID (SEVERE) OBESITY DUE TO EXCESS CALORIES
--- NOTE | 2018-10-13 22:06 | PN ---
Progress Note (short form) - Note Progress Note: patient seen and examined in ICU patient extubated / awake / Remains on HFOT with 50L/min, 40% FiO2. States breathing slightly improved. Not requiring BiPAP. Diuresed well with lasix yesterday. Intake & Output 10/10/18 10/11/18 10/12/18 10/13/18 23:59 23:59 23:59 23:59 Intake Total 1684 9378 294 6170 Output Total 950 3200 4500 3600 Balance 734 -1968 -6930 -2410 Weight 407 lb 1.6 oz 410 lb 1.6 oz 396 lb 5 oz 393 lb 1 oz Vital Signs Period Temp Pulse Resp BP Sys/Jones Pulse Ox Last 24 Hr 98 F-99.3 F 74-98 18-47 115-144/55-71 98-98 morbidly obese female O2 in place extubated heart S1/S2 lungs grossly clear no wheezing obese abdomen ext ++ edema with chronic changes CBC, BMP 10/13/18 05:30 10/13/18 05:30 CBC, BMP 10/11/18 05:15 10/11/18 05:15 Microbiology 10/09/18 11:35 Blood - Peripheral Venous Blood Culture - Preliminary NO GROWTH OBTAINED AFTER 96 HOURS, INCUBATION TO CONTINUE FOR 1 DAYS. 10/09/18 11:25 Blood - Peripheral Venous Blood Culture - Preliminary NO GROWTH OBTAINED AFTER 96 HOURS, INCUBATION TO CONTINUE FOR 1 DAYS. 10/08/18 15:30 Nares - Mrsa Screen - Left MRSA Screen - Final Mr S Aureus 10/07/18 17:00 Sputum - Endotrachea Suction/Ventilator Gram Stain - Final 10/07/18 17:00 Sputum - Endotrachea Suction/Ventilator Sputum Culture - Final NORMAL RESPIRATORY DIOR 10/08/18 15:30 Nares - Mrsa Screen - Right MRSA Screen - Final NO MRSA ISOLATED 10/07/18 08:25 Blood - Peripheral Venous Blood Culture - Final Presumptive Mssa (Pbp2a Neg) 10/07/18 08:25 Blood - Peripheral Venous Blood Culture - Final Staphylococcus Aureus 10/07/18 20:30 Urine For Antigen Detection Legionella Antigen - Final 10/07/18 20:30 Urine For Antigen Detection Streptococcus pneumoniae Antigen (M - Final 10/07/18 08:25 Urine - Urine Clean Catch Urine Culture - Final NO GROWTH OBTAINED Active Medications Acetaminophen (Tylenol -) 325 mg PO Q6H PRN PRN Reason: PAIN Albuterol Sulfate (Ventolin 0.083% Nebulizer Soln -) 1 amp NEB Q4H PRN PRN Reason: SHORT OF BREATH/WHEEZING Albuterol/Ipratropium (Duoneb -) 1 amp NEB RQID [facility] Last Admin: 10/13/18 20:30 Dose: 1 amp Docusate Sodium (Colace Liquid -) 200 mg PO DAILY PRN PRN Reason: CONSTIPATION Fluconazole (Diflucan -) 100 mg PO DAILY [facility] Furosemide (Lasix Injection -) 40 mg IVPUSH DAILY [facility] Last Admin: 10/13/18 09:17 Dose: 40 mg Heparin Sodium (Porcine) (Heparin -) 5,000 unit SQ TID [facility] Last Admin: 10/13/18 15:00 Dose: 5,000 unit Cefazolin Sodium/Dextrose (Ancef 2 Gm Premixed Ivpb -) 2 gm in 50 mls @ 100 mls /hr IVPB Q6H-IV [facility] Last Admin: 10/13/18 15:19 Dose: 100 mls/hr Insulin Aspart (Novolog Vial Sliding Scale -) 1 vial SQ Q4H [facility]; Protocol Last Admin: 10/13/18 19:00 Dose: 4 units Insulin Detemir (Levemir Vial) 45 units SQ BID@0700,2200 [facility] Last Admin: 10/13/18 09:00 Dose: 45 units Losartan Potassium (Cozaar -) 25 mg PO DAILY [facility] Last Admin: 10/13/18 09:18 Dose: 25 mg Methylprednisolone Sodium Succinate (Solu-Medrol -) 32 mg IVPUSH DAILY [facility] Last Admin: 10/13/18 09:20 Dose: 32 mg Pantoprazole Sodium (Protonix Iv) 40 mg IVPUSH DAILY [facility] Last Admin: 10/13/18 09:17 Dose: 40 mg Polyethylene Glycol (Miralax (For Daily Use) -) 17 gm PO BID [facility] Last Admin: 10/13/18 09:20 Dose: Not Given 63 yo female w/ pmh of HTN, asthma, diastolic CHF, GERD, prior lower extremity DVT, morbid obesity, DM, anemia, abdominal fibroid, BIBA for evaluation of 1 day history of altered mental status. Patient required intubation in ER due to acute hypoxic / hypercapneic respiratory failure, after intubation became hypotensive requiring fluid resuscitation and pressor for support. She is currently off pressors, extubated and improved breathing. # acute on chronic resp failure -- hypoxic / hypercapneic / LYLY with hypoventilation/ HFpEF / Asthma extubated responding well to diuretics continue lasix / nebulizer/ steroids IV / PPi # Sepsis r/o pna lactic acidosis resolved emperic abx - appreciate ID # DM sliding scale # HTN adjust meds as needed # CAD elevated TNI -- demand ischemia trend Problem List - Problems (1) Respiratory failure with hypercapnia Code(s): J96.92 - RESPIRATORY FAILURE, UNSPECIFIED WITH HYPERCAPNIA (2) Sepsis Code(s): A41.9 - SEPSIS, UNSPECIFIED ORGANISM Qualifiers: Sepsis type: sepsis due to unspecified organism Qualified Code(s): A41.9 - Sepsis, unspecified organism (3) JOEY (acute kidney injury) Code(s): N17.9 - ACUTE KIDNEY FAILURE, UNSPECIFIED (4) Respiratory distress Code(s): R06.03 - ACUTE RESPIRATORY DISTRESS (5) Elevated troponin Code(s): R74.8 - ABNORMAL LEVELS OF OTHER SERUM ENZYMES (6) Hypoxia Code(s): R09.02 - HYPOXEMIA (7) Sleep apnea Code(s): G47.30 - SLEEP APNEA, UNSPECIFIED (8) Acute on chronic diastolic CHF (congestive heart failure) Code(s): I50.33 - ACUTE ON CHRONIC DIASTOLIC (CONGESTIVE) HEART FAILURE (9) Congestive heart disease Code(s): I50.9 - HEART FAILURE, UNSPECIFIED (10) Elevated brain natriuretic peptide (BNP) level Code(s): R79.89 - OTHER SPECIFIED ABNORMAL FINDINGS OF BLOOD CHEMISTRY (11) HTN (hypertension) Code(s): I10 - ESSENTIAL (PRIMARY) HYPERTENSION (12) Morbid obesity Code(s): E66.01 - MORBID (SEVERE) OBESITY DUE TO EXCESS CALORIES
[2018-10-14] MEDS: INSULIN SLIDING SCALE (NOVOLOG) 1 VIAL SQ SCH ×6 (02:46→21:08)
[2018-10-14] MEDS: POLYETHYLENE GLYCOL 3350 119 GM BTL PO SCH ×3 (02:47→21:09)
[2018-10-14] MEDS: CEFAZOLIN 2 GM/D5W 2 GM/50 ML ML IVPB SCH ×5 (02:48→20:49)
[2018-10-14] MEDS ORDERED: DOCUSATE NA 100 MG/10 ML UNIT-DOSE CUPS PO PRN (02:50)
[2018-10-14] MEDS ORDERED: ALBUTEROL SO4 0.083% IH SOL 2.5 MG/3 ML VIAL.NEB. NEB PRN (02:50)
[2018-10-14] MEDS: HEPARIN NA (PORCINE) 5,000 UNITS/ML 1ML VIAL SQ SCH ×3 (06:16→21:56)
[2018-10-14 06:27] LABS: BASO % 0.3 % (0-2.0); EOS % 2.1 % (0-4.5); HEMOGLOBIN 9.7 GM/dL (10.7-15.3); LYMPH % 13.9 % (8-40); MCH 21.5 pg (25.7-33.7); MCHC 30.1 g/dl (32.0-36.0); MEAN CELL VOLUME 71.3 fl (80-96); MEAN PLT VOLUME 9.4 fl (7.5-11.1); MONO % 6.6 % (3.8-10.2); NEUT % 77.1 % (42.8-82.8); PLATELET COUNT 249 K/MM3 (134-434); RBC 4.49 M/mm3 (3.60-5.2); RDW 20.1 % (11.6-15.6); WHITE BLOOD COUNT 11.8 K/mm3 (4.0-10.0)
[2018-10-14] MEDS: ALBUTEROL SO4 2.5/IPRATROPIUM 0.5 INH SOL 3 ML VIAL.NEB. NEB SCH ×4 (07:10→20:45)
[2018-10-14 08:22] LABS: ALBUMIN 2.3 g/dl (3.4-5.0); ALK PHOS 58 U/L (45-117); ANION GAP 7 MMOL/L (8-16); BILIRUBIN,TOTAL 1.7 mg/dL (0.2-1); BLOOD UREA NITROGEN 26 mg/dL (7-18); CHLORIDE 95 mmol/L (98-107); CO2 37 mmol/L (21-32); CREATININE 0.7 mg/dL (0.55-1.3); GLUCOSE,RANDOM 96 mg/dL (74-106); MAGNESIUM 1.6 mg/dL (1.8-2.4); PHOSPHOROUS 3.8 mg/dL (2.5-4.9); SGOT/AST 29 U/L (15-37); SGPT/ALT 20 U/L (13-61); SODIUM 139 mmol/L (136-145); TOT PROT 6.2 g/dl (6.4-8.2)
--- NOTE | 2018-10-14 09:03 | PN ---
Progress Note (short form) - Note Progress Note: 63 y/o morbidly obese female found lying in bed. C/o pain in mouth. Vital Signs Period Temp Pulse Resp BP Sys/Jones Pulse Ox Last 24 Hr 9.1 F-99.3 F 74-98 17-24 115-135/55-74 98-100 CBC, BMP 10/14/18 06:00 10/14/18 06:00 HEENT- Normocephalic. Canker sores inside rt upper lip Abrasion noted over mouth Neck-Supple Lungs- CTAB Heart- S1/S2 Abd- Obese,Soft, nt Ext- B/L LE edema rt>lt Active Medications Acetaminophen (Tylenol -) 325 mg PO Q6H PRN PRN Reason: PAIN Albuterol Sulfate (Ventolin 0.083% Nebulizer Soln -) 1 amp NEB Q4H PRN PRN Reason: SHORT OF BREATH/WHEEZING Albuterol/Ipratropium (Duoneb -) 1 amp NEB RQID [facility] Last Admin: 10/14/18 07:10 Dose: 1 amp Bacitracin (Bacitracin -) 1 applic TP BID [facility] Stop: 10/16/18 23:59 Benzocaine (Anbesol -) 1 applic MM Q6H PRN PRN Reason: Canker sores Docusate Sodium (Colace Liquid -) 200 mg PO DAILY PRN PRN Reason: CONSTIPATION Fluconazole (Diflucan -) 100 mg PO DAILY [facility] Furosemide (Lasix Injection -) 40 mg IVPUSH DAILY [facility] Heparin Sodium (Porcine) (Heparin -) 5,000 unit SQ TID [facility] Last Admin: 10/14/18 06:16 Dose: 5,000 unit Cefazolin Sodium/Dextrose (Ancef 2 Gm Premixed Ivpb -) 2 gm in 50 mls @ 100 mls /hr IVPB Q6H-IV [facility] Last Admin: 10/14/18 04:13 Dose: 100 mls/hr Insulin Aspart (Novolog Vial Sliding Scale -) 1 vial SQ Q4HPO [facility]; Protocol Last Admin: 10/14/18 06:07 Dose: Not Given Insulin Detemir (Levemir Vial) 45 units SQ BID@0700,2200 [facility] Losartan Potassium (Cozaar -) 25 mg PO DAILY [facility] Methylprednisolone Sodium Succinate (Solu-Medrol -) 32 mg IVPUSH DAILY [facility] Pantoprazole Sodium (Protonix Iv) 40 mg IVPUSH DAILY [facility] Polyethylene Glycol (Miralax (For Daily Use) -) 17 gm PO BID [facility] # acute on chronic resp failure -- hypoxic / hypercapneic / LYLY with hypoventilation/ HFpEF / Asthma extubated responding well to diuretics continue lasix / nebulizer/ IV steroids / PPI # Sepsis No change in chest xray lactic acidosis resolved emperic abx - appreciate ID #Canker sores/abrasion Anbesol/ bacitracin ordered # DM sliding scale Levemir 45 u SQ BID # HTN BP stable Continue acei # CAD elevated TNI -- demand ischemia Problem List - Problems (1) Respiratory failure with hypercapnia Code(s): J96.92 - RESPIRATORY FAILURE, UNSPECIFIED WITH HYPERCAPNIA (2) Sepsis Code(s): A41.9 - SEPSIS, UNSPECIFIED ORGANISM Qualifiers: Sepsis type: sepsis due to unspecified organism Qualified Code(s): A41.9 - Sepsis, unspecified organism (3) JOEY (acute kidney injury) Code(s): N17.9 - ACUTE KIDNEY FAILURE, UNSPECIFIED (4) Respiratory distress Code(s): R06.03 - ACUTE RESPIRATORY DISTRESS (5) Elevated troponin Code(s): R74.8 - ABNORMAL LEVELS OF OTHER SERUM ENZYMES (6) Hypoxia Code(s): R09.02 - HYPOXEMIA (7) Sleep apnea Code(s): G47.30 - SLEEP APNEA, UNSPECIFIED (8) Acute on chronic diastolic CHF (congestive heart failure) Code(s): I50.33 - ACUTE ON CHRONIC DIASTOLIC (CONGESTIVE) HEART FAILURE (9) Congestive heart disease Code(s): I50.9 - HEART FAILURE, UNSPECIFIED (10) Elevated brain natriuretic peptide (BNP) level Code(s): R79.89 - OTHER SPECIFIED ABNORMAL FINDINGS OF BLOOD CHEMISTRY (11) HTN (hypertension) Code(s): I10 - ESSENTIAL (PRIMARY) HYPERTENSION (12) Morbid obesity Code(s): E66.01 - MORBID (SEVERE) OBESITY DUE TO EXCESS CALORIES
[2018-10-14] MEDS: INSULIN (LEVEMIR) 100 UNITS/ML UNITS SQ SCH ×2 (09:13→21:08)
[2018-10-14] MEDS: FLUCONAZOLE 100 MG TABLET (UD) PO SCH (09:13)
[2018-10-14] MEDS: LOSARTAN POTASSIUM 25 MG TABLET PO SCH (09:14)
[2018-10-14] MEDS: PANTOPRAZOLE SODIUM 40 MG VIAL IVPUSH SCH (09:14)
[2018-10-14] MEDS: FUROSEMIDE 40 MG/4 ML INJECTABLE VIAL IVPUSH SCH (09:15)
[2018-10-14] MEDS: BENZOCAINE 20 % GEL TUBE MM PRN (09:28)
[2018-10-14] MEDS ORDERED: methylPREDNISolone NA SUCC 40 MG/1 ML VIAL IVPUSH SCH (10:00)
[2018-10-14] MEDS: BACITRACIN 15 GM TUBE TOPICAL OINTMENT TP SCH ×2 (10:51→21:09)
--- NOTE | 2018-10-14 11:45 | PN ---
Progress Note, CLERICAL ADVISER - Note Progress Note: Selected Entries 10/13/18 10/13/18 10/13/18 00:00 02:00 04:00 Breakfast Temperature 98.6 F Respiratory 24 H 47 H 22 H Rate Respiratory Effort 10/13/18 10/13/18 10/13/18 06:00 07:39 09:23 Breakfast 50% Temperature 98 F 98.7 F Respiratory 20 21 H Rate Respiratory Non-Labored Effort 10/13/18 10/13/18 10:00 12:00 Breakfast Temperature 98.9 F Respiratory 23 H 24 H Rate Respiratory Effort Selected Entries 10/13/18 10/13/18 10/13/18 02:00 06:00 07:39 Breakfast Temperature 98.6 F 98 F 98.7 F 10/13/18 10/13/18 10/13/18 09:23 10:00 14:00 Breakfast 50% Temperature 98.9 F 99.3 F 10/14/18 10/14/18 10/14/18 02:00 04:25 06:00 Breakfast Temperature 9.1 F L 98.0 F 98.3 F 10/14/18 08:35 Breakfast Temperature 98.1 F Laboratory Tests 10/12/18 10/13/18 10/14/18 05:30 05:30 06:00 WBC 12.2 H 10.9 H 11.8 H Pt now on telemetry. No longer on Hi-wen. Now on NC. Streoid- related elevated WBC? Pt is doing quite well with po diet. No overt signs of aspiration.
[2018-10-14] MEDS ORDERED: MAGNESIUM SULF 50% (8.12 MEQ/2 ML-1 GM VIAL) IVPB ONE (12:22)
--- NOTE | 2018-10-14 13:40 | PN ---
Progress Note (short form) - Note Progress Note: PULMONARY Still short of breath and nonproductive cough. Saturating well on nasal cannula. Diuresing well. Vital Signs Period Temp Pulse Resp BP Sys/Jones Pulse Ox Last 24 Hr 9.1 F-99.3 F 74-98 17- 115-135/55-74 100-100 Intake & Output 10/11/18 10/12/18 10/13/18 10/14/18 23:59 23:59 23:59 23:59 Intake Total 3542 201 6449 730 Output Total 3200 4500 4300 300 Balance -8860 -6007 -8380 430 Weight 186.018 kg 179.764 kg 178.29 kg 172.393 kg Gen: anxious but NAD Heart: RRR Lung: distant breath sounds Abd: soft, nontender Ext: less edema CBC, BMP 10/14/18 06:00 10/14/18 06:00 Active Medications Acetaminophen (Tylenol -) 325 mg PO Q6H PRN PRN Reason: PAIN Albuterol Sulfate (Ventolin 0.083% Nebulizer Soln -) 1 amp NEB Q4H PRN PRN Reason: SHORT OF BREATH/WHEEZING Albuterol/Ipratropium (Duoneb -) 1 amp NEB RQID [facility] Last Admin: 10/14/18 11:10 Dose: 1 amp Bacitracin (Bacitracin -) 1 applic TP BID [facility] Stop: 10/16/18 23:59 Last Admin: 10/14/18 10:51 Dose: 1 applic Benzocaine (Anbesol -) 1 applic MM Q6H PRN PRN Reason: Canker sores Last Admin: 10/14/18 09:28 Dose: 1 applic Docusate Sodium (Colace Liquid -) 200 mg PO DAILY PRN PRN Reason: CONSTIPATION Fluconazole (Diflucan -) 100 mg PO DAILY [facility] Last Admin: 10/14/18 09:13 Dose: 100 mg Furosemide (Lasix Injection -) 40 mg IVPUSH DAILY [facility] Last Admin: 10/14/18 09:15 Dose: 40 mg Heparin Sodium (Porcine) (Heparin -) 5,000 unit SQ TID [facility] Last Admin: 10/14/18 06:16 Dose: 5,000 unit Cefazolin Sodium/Dextrose (Ancef 2 Gm Premixed Ivpb -) 2 gm in 50 mls @ 100 mls /hr IVPB Q6H-IV [facility] Last Admin: 10/14/18 09:14 Dose: 100 mls/hr Insulin Aspart (Novolog Vial Sliding Scale -) 1 vial SQ Q4HPO [facility]; Protocol Last Admin: 10/14/18 11:31 Dose: 2 units Insulin Detemir (Levemir Vial) 45 units SQ BID@0700,2200 [facility] Last Admin: 10/14/18 09:13 Dose: 45 units Losartan Potassium (Cozaar -) 25 mg PO DAILY [facility] Last Admin: 10/14/18 09:14 Dose: 25 mg Methylprednisolone Sodium Succinate (Solu-Medrol -) 32 mg IVPUSH DAILY [facility] Last Admin: 10/14/18 09:16 Dose: 32 mg Pantoprazole Sodium (Protonix Iv) 40 mg IVPUSH DAILY [facility] Last Admin: 10/14/18 09:14 Dose: 40 mg Polyethylene Glycol (Miralax (For Daily Use) -) 17 gm PO BID [facility] Last Admin: 10/14/18 09:15 Dose: 17 grams A/P Acute on Chronic Hypoxic and Hypercapneic Respiratory Failure Volume Overload Acute on Chronic Diastolic Heart Failure Acute Asthma Exacerbation Cellulitis MSSA Bacteremia Sepsis Lactic Acidosis +Troponins likely Demand Ischemia Acute Kidney Injury Morbid Obesity Obstructive Sleep Apnea/Obesity Hypoventilation Syndrome HTN DM h/o DVT - continue lasix - monitor urine output, creatinine - keep net negative - can d/c medrol - inhaled bronchodilators standing and PRN - antibiotics per ID - rehab/PT - DVT/GI prophylaxis
--- NOTE | 2018-10-14 16:36 | PN ---
Progress Note, Physician Chief Complaint: Pt A&Ox3; lying in bed; no chest pain or dyspnea. History of Present Illness: he patient is a 63 year old female, with a significant PMH of hypertension, asthma, diastolic CHF, GERD, prior lower extremity DVT, morbid obesity, DM, anemia, abdominal fibroids, who presents to the emergency department with altered mental status. As per , the patient was noted to be fading in/ out of conversation yesterday. He states he called EMS this morning as the patient was unresponsive. He also states the patient has had malodorous urine for several days. As per EMS, patient blood sugar was in the 300s while en route to the ER. Found febrile on admission. - Current Medication List Current Medications: Active Medications Acetaminophen (Tylenol -) 325 mg PO Q6H PRN PRN Reason: PAIN Albuterol Sulfate (Ventolin 0.083% Nebulizer Soln -) 1 amp NEB Q4H PRN PRN Reason: SHORT OF BREATH/WHEEZING Albuterol/Ipratropium (Duoneb -) 1 amp NEB RQID [facility] Last Admin: 10/14/18 11:10 Dose: 1 amp Bacitracin (Bacitracin -) 1 applic TP BID [facility] Stop: 10/16/18 23:59 Last Admin: 10/14/18 10:51 Dose: 1 applic Benzocaine (Anbesol -) 1 applic MM Q6H PRN PRN Reason: Canker sores Last Admin: 10/14/18 09:28 Dose: 1 applic Docusate Sodium (Colace Liquid -) 200 mg PO DAILY PRN PRN Reason: CONSTIPATION Fluconazole (Diflucan -) 100 mg PO DAILY [facility] Last Admin: 10/14/18 09:13 Dose: 100 mg Furosemide (Lasix Injection -) 40 mg IVPUSH DAILY [facility] Last Admin: 10/14/18 09:15 Dose: 40 mg Heparin Sodium (Porcine) (Heparin -) 5,000 unit SQ TID [facility] Last Admin: 10/14/18 14:21 Dose: 5,000 unit Cefazolin Sodium/Dextrose (Ancef 2 Gm Premixed Ivpb -) 2 gm in 50 mls @ 100 mls /hr IVPB Q6H-IV [facility] Last Admin: 10/14/18 14:20 Dose: 100 mls/hr Insulin Aspart (Novolog Vial Sliding Scale -) 1 vial SQ Q4HPO [facility]; Protocol Last Admin: 10/14/18 14:17 Dose: Not Given Insulin Detemir (Levemir Vial) 45 units SQ BID@0700,2200 [facility] Last Admin: 10/14/18 09:13 Dose: 45 units Losartan Potassium (Cozaar -) 25 mg PO DAILY [facility] Last Admin: 10/14/18 09:14 Dose: 25 mg Pantoprazole Sodium (Protonix Iv) 40 mg IVPUSH DAILY [facility] Last Admin: 10/14/18 09:14 Dose: 40 mg Polyethylene Glycol (Miralax (For Daily Use) -) 17 gm PO BID [facility] Last Admin: 10/14/18 09:15 Dose: 17 grams - Objective Vital Signs: Vital Signs Temperature 98.1 F 10/14/18 13:51 Pulse Rate 94 H 10/14/18 13:51 Respiratory Rate 16 10/14/18 13:51 Blood Pressure 121/63 10/14/18 13:51 O2 Sat by Pulse Oximetry (%) 100 10/14/18 08:35 Constitutional: Yes: Anxious Eyes: Yes: WNL HENT: Yes: Epistaxis Neck: Yes: WNL Cardiovascular: Yes: S1, S2 Respiratory: Yes: WNL Gastrointestinal: Yes: Soft, Abdomen, Obese ...Rectal Exam: Yes: Deferred Genitourinary: Yes: Anuria Breast(s): Yes: WNL Extremities: Yes: Cool Edema: Yes Edema: LLE: Trace, RLE: Trace Peripheral Pulses WNL: Yes Psychiatric: Yes: Alert, Oriented Labs: CBC, BMP 10/14/18 06:00 10/14/18 06:00 INR, PTT INR 1.42 (0.83-1.09) H 10/07/18 08:30 - ....Imaging Chest X-ray: Image Reviewed Other: Image Reviewed (telemetry NSR) Problem List - Problems (1) Sleep apnea Code(s): G47.30 - SLEEP APNEA, UNSPECIFIED (2) Acute on chronic diastolic CHF (congestive heart failure) Assessment/Plan: Elevated BNP; + JVP. CXR: bilateral pleural effusion. Septic; BP stable. Now on losartan and furosemide. ECHO: normal LVEF. F/u BUN/Cr, electrolytes, daily weight, Is and Os. Code(s): I50.33 - ACUTE ON CHRONIC DIASTOLIC (CONGESTIVE) HEART FAILURE (3) Morbid obesity Assessment/Plan: The need for diet modifcation and weight is paramount; this was discussed again with pt. Code(s): E66.01 - MORBID (SEVERE) OBESITY DUE TO EXCESS CALORIES (4) [place] cardiac risk >20% in next 10 years Assessment/Plan: aggressive control of lipids (f/u lipid panel; TSH WNL) and glucose. Stress Lexiscan MIBI 08/24/2017 ([facility]): no myocardial ischemia; normal LVEF. Code(s): Z91.89 - [facility] PERSONAL RISK FACTORS, NOT ELSEWHERE CLASSIFIED (5) Elevated troponin Assessment/Plan: mildly increased TNI (0.07), with normal CKMB. Normal EKG. Likely demand ischemia from sepsis, CHF, respiratory failure. F/u TNI and EKG serially. Stress MIBI when stable. Code(s): R74.8 - ABNORMAL LEVELS OF OTHER SERUM ENZYMES (6) Sepsis Assessment/Plan: Leukocytosis; febrile. Likely PNA. Antibiotics per ID; f/u cultures. Code(s): A41.9 - SEPSIS, UNSPECIFIED ORGANISM Qualifiers: Sepsis type: sepsis due to unspecified organism Qualified Code(s): A41.9 - Sepsis, unspecified organism (7) Diabetes Assessment/Plan: HGBA1c>12 Code(s): E11.9 - TYPE 2 DIABETES MELLITUS WITHOUT COMPLICATIONS (8) Hypomagnesemia Assessment/Plan: replete; f/u all electrolyte levels. Code(s): E83.42 - HYPOMAGNESEMIA
[2018-10-15] MEDS: CEFAZOLIN 2 GM/D5W 2 GM/50 ML ML IVPB SCH ×4 (02:32→22:29)
[2018-10-15] MEDS: INSULIN SLIDING SCALE (NOVOLOG) 1 VIAL SQ SCH ×6 (02:41→22:31)
[2018-10-15] MEDS: HEPARIN NA (PORCINE) 5,000 UNITS/ML 1ML VIAL SQ SCH ×3 (05:48→22:29)
[2018-10-15 06:23] LABS: BASO % 0.1 % (0-2.0); EOS % 2.2 % (0-4.5); HEMATOCRIT 33.6 % (32.4-45.2); MCH 21.2 pg (25.7-33.7); MCHC 29.8 g/dl (32.0-36.0); MEAN CELL VOLUME 71.2 fl (80-96); MEAN PLT VOLUME 9.2 fl (7.5-11.1); MONO % 8.9 % (3.8-10.2); NEUT % 75.8 % (42.8-82.8); PLATELET COUNT 292 K/MM3 (134-434); RBC 4.72 M/mm3 (3.60-5.2); RDW 20.3 % (11.6-15.6); WHITE BLOOD COUNT 12.4 K/mm3 (4.0-10.0)
[2018-10-15 06:57] LABS: ANION GAP 5 MMOL/L (8-16); BLOOD UREA NITROGEN 20 mg/dL (7-18); CALCIUM 8.9 mg/dL (8.5-10.1); CHLORIDE 94 mmol/L (98-107); CO2 41 mmol/L (21-32); CREATININE 0.6 mg/dL (0.55-1.3); GLUCOSE,RANDOM 98 mg/dL (74-106); POTASSIUM 4.2 mmol/L (3.5-5.1); SODIUM 140 mmol/L (136-145)
[2018-10-15] MEDS: ALBUTEROL SO4 2.5/IPRATROPIUM 0.5 INH SOL 3 ML VIAL.NEB. NEB SCH ×4 (08:51→21:00)
[2018-10-15] MEDS: INSULIN (LEVEMIR) 100 UNITS/ML UNITS SQ SCH ×2 (09:57→22:31)
[2018-10-15] MEDS: FUROSEMIDE 40 MG/4 ML INJECTABLE VIAL IVPUSH SCH (09:58)
[2018-10-15] MEDS: PANTOPRAZOLE SODIUM 40 MG VIAL IVPUSH SCH (10:00)
[2018-10-15] MEDS: FLUCONAZOLE 100 MG TABLET (UD) PO SCH (10:05)
[2018-10-15] MEDS: BACITRACIN 15 GM TUBE TOPICAL OINTMENT TP SCH ×2 (10:05→22:30)
[2018-10-15] MEDS: LOSARTAN POTASSIUM 25 MG TABLET PO SCH (10:05)
[2018-10-15] MEDS: BENZOCAINE 20 % GEL TUBE MM PRN (10:05)
[2018-10-15] MEDS: POLYETHYLENE GLYCOL 3350 119 GM BTL PO SCH ×2 (10:06→22:25)
--- NOTE | 2018-10-15 12:37 | PN ---
Progress Note, Physician History of Present Illness: PULMONARY ALERT,COMFORTABLE ON NASAL CANNULA,-SOB. - Current Medication List Current Medications: Active Medications Acetaminophen (Tylenol -) 325 mg PO Q6H PRN PRN Reason: PAIN Albuterol Sulfate (Ventolin 0.083% Nebulizer Soln -) 1 amp NEB Q4H PRN PRN Reason: SHORT OF BREATH/WHEEZING Albuterol/Ipratropium (Duoneb -) 1 amp NEB RQID [facility] Last Admin: 10/15/18 12:04 Dose: 1 amp Bacitracin (Bacitracin -) 1 applic TP BID [facility] Stop: 10/16/18 23:59 Last Admin: 10/15/18 10:05 Dose: 1 applic Benzocaine (Anbesol -) 1 applic MM Q6H PRN PRN Reason: Canker sores Last Admin: 10/15/18 10:05 Dose: 1 applic Docusate Sodium (Colace Liquid -) 200 mg PO DAILY PRN PRN Reason: CONSTIPATION Fluconazole (Diflucan -) 100 mg PO DAILY [facility] Last Admin: 10/15/18 10:05 Dose: 100 mg Furosemide (Lasix Injection -) 40 mg IVPUSH DAILY [facility] Last Admin: 10/15/18 09:58 Dose: 40 mg Heparin Sodium (Porcine) (Heparin -) 5,000 unit SQ TID [facility] Last Admin: 10/15/18 05:48 Dose: 5,000 unit Cefazolin Sodium/Dextrose (Ancef 2 Gm Premixed Ivpb -) 2 gm in 50 mls @ 100 mls /hr IVPB Q6H-IV [facility] Last Admin: 10/15/18 10:05 Dose: 100 mls/hr Insulin Aspart (Novolog Vial Sliding Scale -) 1 vial SQ Q4HPO [facility]; Protocol Last Admin: 10/15/18 11:28 Dose: Not Given Insulin Detemir (Levemir Vial) 45 units SQ BID@0700,2200 [facility] Last Admin: 10/15/18 09:57 Dose: 45 units Losartan Potassium (Cozaar -) 25 mg PO DAILY [facility] Last Admin: 10/15/18 10:05 Dose: 25 mg Pantoprazole Sodium (Protonix Iv) 40 mg IVPUSH DAILY [facility] Last Admin: 10/15/18 10:00 Dose: 40 mg Polyethylene Glycol (Miralax (For Daily Use) -) 17 gm PO BID [facility] Last Admin: 10/15/18 10:06 Dose: Not Given - Objective Vital Signs: Vital Signs Temperature 97.8 F 10/15/18 10:00 Pulse Rate 86 10/15/18 10:00 Respiratory Rate 18 10/15/18 10:00 Blood Pressure 130/69 10/15/18 10:00 O2 Sat by Pulse Oximetry (%) 98 10/15/18 09:00 Constitutional: Yes: Calm, Obese Eyes: Yes: WNL HENT: Yes: WNL Neck: Yes: WNL Cardiovascular: Yes: Regular Rate and Rhythm, S1, S2 Respiratory: Yes: Diminished Gastrointestinal: Yes: Normal Bowel Sounds, Abdomen, Obese Extremities: Yes: WNL Edema: Yes Labs: CBC, BMP 10/15/18 05:30 10/15/18 05:30 INR, PTT INR 1.42 (0.83-1.09) H 10/07/18 08:30 Problem List - Problems (1) JOEY (acute kidney injury) Code(s): N17.9 - ACUTE KIDNEY FAILURE, UNSPECIFIED (2) Diabetes Code(s): E11.9 - TYPE 2 DIABETES MELLITUS WITHOUT COMPLICATIONS (3) Hypoxia Code(s): R09.02 - HYPOXEMIA (4) Respiratory distress Code(s): R06.03 - ACUTE RESPIRATORY DISTRESS (5) Sleep apnea Code(s): G47.30 - SLEEP APNEA, UNSPECIFIED (6) Acute on chronic respiratory failure with hypoxia and hypercapnia Code(s): J96.21 - ACUTE AND CHRONIC RESPIRATORY FAILURE WITH HYPOXIA; J96.22 - ACUTE AND CHRONIC RESPIRATORY FAILURE WITH HYPERCAPNIA (7) Diastolic CHF, acute on chronic Code(s): I50.33 - ACUTE ON CHRONIC DIASTOLIC (CONGESTIVE) HEART FAILURE (8) Morbid (severe) obesity due to excess calories Code(s): E66.01 - MORBID (SEVERE) OBESITY DUE TO EXCESS CALORIES (9) Obesity hypoventilation syndrome Code(s): E66.2 - MORBID (SEVERE) OBESITY WITH ALVEOLAR HYPOVENTILATION (10) Sleep apnea Code(s): G47.30 - SLEEP APNEA, UNSPECIFIED Assessment/Plan ASSESSMENT AND PLAN: Acute on Chronic Hypoxic and Hypercapneic Respiratory Failure Volume Overload Acute on Chronic Diastolic Heart Failure Acute Asthma Exacerbation Cellulitis MSSA Bacteremia Sepsis Lactic Acidosis +Troponins likely Demand Ischemia Acute Kidney Injury Morbid Obesity Obstructive Sleep Apnea/Obesity Hypoventilation Syndrome HTN DM h/o DVT - nasal cannula - lasix - monitor urine output, creatinine - keep net negative - inhaled bronchodilators standing and PRN - antibiotics per ID - rehab/PT - DVT/GI prophylaxis DR DOMÍNGUEZ
--- NOTE | 2018-10-15 14:17 | PN ---
Physical Exam: SUBJECTIVE: Patient seen and examined, she is sitting in the bed, in no distress , has 2l NC on,states that she tried to sit at the side of the bed and she was lightheaded yesterday which she states it was combination of being week and room being too hot. OBJECTIVE: Vital Signs Period Temp Pulse Resp BP Sys/Jones Pulse Ox Last 24 Hr 97.8 F-98.3 F 84-90 18-18 130-145/65-73 98-98 GENERAL: The patient is awake, alert, and fully oriented, in no acute distress. HEAD: Normal with no signs of trauma. EYES: PERRL, extraocular movements intact, sclera anicteric, conjunctiva clear. No ptosis. LUNGS: Breath sounds equal, clear to auscultation bilaterally, no wheezes, no crackles, no accessory muscle use. she has no respiratory distress HEART: Regular rate and rhythm, S1, S2 ABDOMEN: Soft, nontender, nondistended, normoactive bowel sounds, no guarding, morbidly obese EXTREMITIES: 2+ pulses, warm, well-perfused, no edema in mt exam, her legs are fatty and short and has chronic edema skin discoloration. NEUROLOGICAL: Cranial nerves II through XII grossly intact. Normal speech, gait not observed. PSYCH: Normal mood, normal affect. SKIN: Warm, dry, normal turgor, no rashes or lesions noted Laboratory Results - last 24 hr 10/15/18 10/15/18 10/15/18 05:30 05:30 05:30 WBC 12.4 H RBC 4.72 Hgb 10.0 L Hct 33.6 MCV 71.2 L MCH 21.2 L MCHC 29.8 L RDW 20.3 H Plt Count 292 MPV 9.2 Absolute Neuts (auto) 9.4 H Neutrophils % 75.8 Lymphocytes % 13.0 Monocytes % 8.9 Eosinophils % 2.2 Basophils % 0.1 Nucleated RBC % 0 Sodium 140 Potassium 4.2 Chloride 94 L Carbon Dioxide 41 H Anion Gap 5 L BUN 20 H Creatinine 0.6 Creat Clearance w eGFR > 60 Random Glucose 98 Lactic Acid 1.0 Calcium 8.9 Active Medications Generic Name Dose Route Start Last Admin Trade Name Freq PRN Reason Stop Dose Admin Acetaminophen 325 mg 10/13/18 16:15 Tylenol - PO Q6H PRN PAIN Albuterol Sulfate 1 amp 10/14/18 02:50 Ventolin 0.083% Nebulizer Soln - NEB Q4H PRN SHORT OF BREATH/WHEEZING Albuterol/Ipratropium 1 amp 10/14/18 08:00 10/15/18 12:04 Duoneb - NEB 1 amp RQID [facility] Administration Bacitracin 1 applic 10/14/18 10:00 10/15/18 10:05 Bacitracin - TP 10/16/18 23:59 1 applic BID [facility] Administration Benzocaine 1 applic 10/14/18 08:55 10/15/18 10:05 Anbesol - MM 1 applic Q6H PRN Administration Canker sores Docusate Sodium 200 mg 10/14/18 02:50 Colace Liquid - PO DAILY PRN CONSTIPATION Fluconazole 100 mg 10/14/18 10:00 10/15/18 10:05 Diflucan - PO 100 mg DAILY [facility] Administration Furosemide 40 mg 10/14/18 10:00 10/15/18 09:58 Lasix Injection - IVPUSH 40 mg DAILY [facility] Administration Heparin Sodium (Porcine) 5,000 unit 10/14/18 06:00 10/15/18 13:46 Heparin - SQ 5,000 unit TID [facility] Administration Cefazolin Sodium/Dextrose 2 gm in 50 mls @ 100 mls/hr 10/14/18 03:00 10:05 Ancef 2 Gm Premixed Ivpb - IVPB 100 mls/hr Q6H-IV [facility] Administration Insulin Aspart 1 vial 10/14/18 06:00 10/15/18 11:28 Novolog Vial Sliding Scale - SQ Not Given Q4HPO [facility] Protocol Insulin Detemir 45 units 10/14/18 07:00 10/15/18 09:57 Levemir Vial SQ 45 units BID@0700,2200 [facility] Administration Losartan Potassium 25 mg 10/14/18 10:00 10/15/18 10:05 Cozaar - PO 25 mg DAILY [facility] Administration Pantoprazole Sodium 40 mg 10/14/18 10:00 10/15/18 10:00 Protonix Iv IVPUSH 40 mg DAILY [facility] Administration Polyethylene Glycol 17 gm 10/14/18 10:00 10/15/18 10:06 Miralax (For Daily Use) - PO Not Given BID [facility] ASSESSMENT/PLAN: Acute on Chronic Hypoxic and Hypercapneic Respiratory Failure,Obstructive Sleep Apnea/Obesity Hypoventilation Syndrome: unclear trigger, she most likely will need to have CPAP for LYLY on discharge,still on O2 NC, will monitor the Sat off O2 supplement Acute on Chronic Diastolic Heart Failure,+Troponins likely Demand Ischemia: has resolved and she is feeling better, will C/W home medications Cellulitis: not at this time and has chronic skin changes Acute Kidney Injury: improved Morbid Obesity HTN: C/W current medication DM: c/w current regimen severe deconditioing: will need ELIZABETH but she states that she is not willing to go to rehab and wants to go home. - DVT/GI prophylaxis
[2018-10-15] MEDS ORDERED: PT OWN MED DRAWER 7, Y5N ONE (18:14)
[2018-10-15] MEDS ORDERED: INSULIN (LEVEMIR) 100 UNITS/ML UNITS SQ ONE (18:15)
[2018-10-15] MEDS ORDERED: INSULIN SLIDING SCALE (NOVOLOG) 1 VIAL SQ ONE (18:15)
[2018-10-15] MEDS ORDERED: ONDANSETRON 4 MG/2 ML VIAL IVPUSH ONE (23:30)
[2018-10-16] MEDS: INSULIN SLIDING SCALE (NOVOLOG) 1 VIAL SQ SCH ×6 (03:47→22:07)
[2018-10-16] MEDS: CEFAZOLIN 2 GM/D5W 2 GM/50 ML ML IVPB SCH ×4 (03:47→22:05)
[2018-10-16] MEDS: HEPARIN NA (PORCINE) 5,000 UNITS/ML 1ML VIAL SQ SCH ×3 (06:47→22:05)
[2018-10-16] MEDS: INSULIN (LEVEMIR) 100 UNITS/ML UNITS SQ SCH ×2 (06:50→22:06)
[2018-10-16] MEDS: ALBUTEROL SO4 2.5/IPRATROPIUM 0.5 INH SOL 3 ML VIAL.NEB. NEB SCH ×4 (09:00→20:35)
--- NOTE | 2018-10-16 09:36 | HOSP ---
Subjective - Review of Symptoms Events since last encounter: she c/o mild nausea but no abd pain she ate well no distress no fever or chills Physical Examination Vital Signs: Vital Signs Temperature 98.2 F 10/16/18 06:00 Pulse Rate 89 10/16/18 06:00 Respiratory Rate 18 10/16/18 06:00 Blood Pressure 114/55 L 10/16/18 06:00 O2 Sat by Pulse Oximetry (%) 99 10/15/18 21:00 Constitutional: Yes: No Distress Eyes: Yes: WNL Neck: Yes: WNL Respiratory: Yes: Wheezes (expiratory only) Gastrointestinal: Yes: WNL Extremities: Yes: Other (she has chronic changes but no swelling) Edema: No Labs: CBC, BMP 10/15/18 05:30 10/15/18 05:30 Hospitalist Encounter Assessment: Acute on Chronic Hypoxic and Hypercapneic Respiratory Failure,Obstructive Sleep Apnea/Obesity Hypoventilation Syndrome: unclear trigger, she most likely will need to have CPAP for LYLY on discharge,still on O2 NC, will monitor the Sat off O2 supplement Acute on Chronic Diastolic Heart Failure,+Troponins likely Demand Ischemia: improved continue same meds Cellulitis: not at this time and has chronic skin changes Acute Kidney Injury: improved Morbid Obesity HTN: C/W current medication DM: c/w current regimen severe deconditioing: will need ELIZABETH but she states that she is not willing to go to rehab and wants to go home. - DVT/GI prophylaxis she has skin excoriation on her pelvic area due to sweating and she has mild diarrhea yesterday and now better add nystatin skin cream physical therapy
[2018-10-16] MEDS ORDERED: PT OWN MED DRAWER 7, Y5N ONE (10:14)
[2018-10-16] MEDS: BACITRACIN 15 GM TUBE TOPICAL OINTMENT TP SCH ×2 (10:38→22:11)
[2018-10-16] MEDS: FLUCONAZOLE 100 MG TABLET (UD) PO SCH (10:38)
[2018-10-16] MEDS: LOSARTAN POTASSIUM 25 MG TABLET PO SCH (10:38)
[2018-10-16] MEDS: FUROSEMIDE 40 MG TABLET (FP) PO SCH (10:38)
[2018-10-16] MEDS: PANTOPRAZOLE 40 MG TABLET (FP) PO SCH (10:38)
[2018-10-16] MEDS: POLYETHYLENE GLYCOL 3350 119 GM BTL PO SCH ×2 (10:38→22:07)
[2018-10-16] MEDS: BENZOCAINE 20 % GEL TUBE MM PRN (11:47)
[2018-10-16] MEDS ORDERED: MAG HYDROX/AL HYDROX/SIMETH 30 ML UNIT-DOSE CUP PO PRN (13:57)
[2018-10-16] MEDS: ACETAMINOPHEN 325 MG TABLET (FP) PO PRN (15:14)
[2018-10-16] MEDS: NYSTATIN 100,000 UNIT/GM TOPICAL CREAM 15 GM TUBE TP SCH ×2 (15:15→22:12)
--- NOTE | 2018-10-16 15:40 | PN ---
Progress Note, Physician History of Present Illness: Awake, alert Seated in bed No complaints Afebrile Tolerating antibiotics - Current Medication List Current Medications: Active Medications Acetaminophen (Tylenol -) 325 mg PO Q6H PRN PRN Reason: PAIN Last Admin: 10/16/18 15:14 Dose: 325 mg Al Hydroxide/Mg Hydroxide (Mylanta Oral Suspension -) 30 ml PO Q6H PRN PRN Reason: DYSPEPSIA Last Admin: 10/16/18 15:14 Dose: 30 ml Albuterol Sulfate (Ventolin 0.083% Nebulizer Soln -) 1 amp NEB Q4H PRN PRN Reason: SHORT OF BREATH/WHEEZING Albuterol/Ipratropium (Duoneb -) 1 amp NEB RQID [facility] Last Admin: 10/16/18 13:01 Dose: 1 amp Bacitracin (Bacitracin -) 1 applic TP BID [facility] Stop: 10/16/18 23:59 Last Admin: 10/16/18 10:38 Dose: 1 applic Benzocaine (Anbesol -) 1 applic MM Q6H PRN PRN Reason: Canker sores Last Admin: 10/16/18 11:47 Dose: 1 applic Docusate Sodium (Colace Liquid -) 200 mg PO DAILY PRN PRN Reason: CONSTIPATION Fluconazole (Diflucan -) 100 mg PO DAILY [facility] Last Admin: 10/16/18 10:38 Dose: 100 mg Furosemide (Lasix -) 40 mg PO DAILY [facility] Last Admin: 10/16/18 10:38 Dose: 40 mg Heparin Sodium (Porcine) (Heparin -) 5,000 unit SQ TID [facility] Last Admin: 10/16/18 15:15 Dose: 5,000 unit Cefazolin Sodium/Dextrose (Ancef 2 Gm Premixed Ivpb -) 2 gm in 50 mls @ 100 mls /hr IVPB Q6H-IV [facility] Last Admin: 10/16/18 15:15 Dose: 100 mls/hr Insulin Aspart (Novolog Vial Sliding Scale -) 1 vial SQ Q4HPO [facility]; Protocol Last Admin: 10/16/18 15:15 Dose: Not Given Insulin Detemir (Levemir Vial) 45 units SQ BID@0700,2200 [facility] Last Admin: 10/16/18 06:50 Dose: Not Given Losartan Potassium (Cozaar -) 25 mg PO DAILY [facility] Last Admin: 10/16/18 10:38 Dose: 25 mg Nystatin (Mycostatin Cream -) 1 applic TP BID [facility] Last Admin: 10/16/18 15:15 Dose: 1 applic Pantoprazole Sodium (Protonix -) 40 mg PO DAILY [facility] Last Admin: 10/16/18 10:38 Dose: 40 mg Polyethylene Glycol (Miralax (For Daily Use) -) 17 gm PO BID [facility] Last Admin: 10/16/18 10:38 Dose: Not Given - Objective Vital Signs: Vital Signs Temperature 98.0 F 10/16/18 10:00 Pulse Rate 94 H 10/16/18 10:00 Respiratory Rate 18 10/16/18 10:00 Blood Pressure 110/58 L 10/16/18 10:00 O2 Sat by Pulse Oximetry (%) 98 10/16/18 10:00 Constitutional: Yes: Obese Cardiovascular: Yes: Regular Rate and Rhythm, S1, S2 Respiratory: Yes: Diminished Gastrointestinal: Yes: Normal Bowel Sounds, Soft, Abdomen, Obese Labs: CBC, BMP 10/15/18 05:30 10/15/18 05:30 INR, PTT INR 1.42 (0.83-1.09) H 10/07/18 08:30 Assessment/Plan MSSA BACTEREMIA S/P RESP FAILURE MORBID OBESITY MRSA COLONIZATION CONTINUE CEFAZOLIN.
--- NOTE | 2018-10-16 15:48 | PN ---
Progress Note (short form) - Note Progress Note: PULMONARY Breathing continues to improve. Saturating well on nasal cannula. Diuresing well. Had diarrhea last night. Vital Signs Period Temp Pulse Resp BP Sys/Jones Pulse Ox Last 24 Hr 98.0 F-98.8 F 81-94 18-18 110-126/45-64 98-99 Gen: anxious but NAD Heart: RRR Lung: distant breath sounds Abd: soft, nontender Ext: less edema CBC, BMP 10/15/18 05:30 10/15/18 05:30 Active Medications Acetaminophen (Tylenol -) 325 mg PO Q6H PRN PRN Reason: PAIN Last Admin: 10/16/18 15:14 Dose: 325 mg Al Hydroxide/Mg Hydroxide (Mylanta Oral Suspension -) 30 ml PO Q6H PRN PRN Reason: DYSPEPSIA Last Admin: 10/16/18 15:14 Dose: 30 ml Albuterol Sulfate (Ventolin 0.083% Nebulizer Soln -) 1 amp NEB Q4H PRN PRN Reason: SHORT OF BREATH/WHEEZING Albuterol/Ipratropium (Duoneb -) 1 amp NEB RQID [facility] Last Admin: 10/16/18 13:01 Dose: 1 amp Bacitracin (Bacitracin -) 1 applic TP BID [facility] Stop: 10/16/18 23:59 Last Admin: 10/16/18 10:38 Dose: 1 applic Benzocaine (Anbesol -) 1 applic MM Q6H PRN PRN Reason: Canker sores Last Admin: 10/16/18 11:47 Dose: 1 applic Docusate Sodium (Colace Liquid -) 200 mg PO DAILY PRN PRN Reason: CONSTIPATION Fluconazole (Diflucan -) 100 mg PO DAILY [facility] Last Admin: 10/16/18 10:38 Dose: 100 mg Furosemide (Lasix -) 40 mg PO DAILY [facility] Last Admin: 10/16/18 10:38 Dose: 40 mg Heparin Sodium (Porcine) (Heparin -) 5,000 unit SQ TID [facility] Last Admin: 10/16/18 15:15 Dose: 5,000 unit Cefazolin Sodium/Dextrose (Ancef 2 Gm Premixed Ivpb -) 2 gm in 50 mls @ 100 mls /hr IVPB Q6H-IV [facility] Last Admin: 01/19/19 15:15 Dose: 100 mls/hr Insulin Aspart (Novolog Vial Sliding Scale -) 1 vial SQ ACHS [facility]; Protocol Insulin Detemir (Levemir Vial) 45 units SQ BID@0700,2200 [facility] Last Admin: 10/16/18 06:50 Dose: Not Given Losartan Potassium (Cozaar -) 25 mg PO DAILY [facility] Last Admin: 10/16/18 10:38 Dose: 25 mg Nystatin (Mycostatin Cream -) 1 applic TP BID [facility] Last Admin: 10/16/18 15:15 Dose: 1 applic Pantoprazole Sodium (Protonix -) 40 mg PO DAILY [facility] Last Admin: 10/16/18 10:38 Dose: 40 mg Polyethylene Glycol (Miralax (For Daily Use) -) 17 gm PO BID [facility] Last Admin: 10/16/18 10:38 Dose: Not Given A/P Acute on Chronic Hypoxic and Hypercapneic Respiratory Failure Volume Overload Acute on Chronic Diastolic Heart Failure Acute Asthma Exacerbation Cellulitis MSSA Bacteremia Sepsis Lactic Acidosis +Troponins likely Demand Ischemia Acute Kidney Injury Morbid Obesity Obstructive Sleep Apnea/Obesity Hypoventilation Syndrome HTN DM h/o DVT - continue lasix - monitor urine output, creatinine - inhaled bronchodilators standing and PRN - O2 to keep SpO2 >90% - antibiotics per ID - rehab/PT - DVT/GI prophylaxis
[2018-10-17] MEDS: CEFAZOLIN 2 GM/D5W 2 GM/50 ML ML IVPB SCH ×4 (03:40→19:58)
[2018-10-17] MEDS: INSULIN (LEVEMIR) 100 UNITS/ML UNITS SQ SCH ×2 (06:26→21:15)
[2018-10-17] MEDS: INSULIN SLIDING SCALE (NOVOLOG) 1 VIAL SQ SCH ×4 (06:26→21:16)
[2018-10-17] MEDS: HEPARIN NA (PORCINE) 5,000 UNITS/ML 1ML VIAL SQ SCH ×3 (06:26→21:15)
[2018-10-17] MEDS: PANTOPRAZOLE 40 MG TABLET (FP) PO SCH (09:43)
[2018-10-17] MEDS: LOSARTAN POTASSIUM 25 MG TABLET PO SCH (09:43)
[2018-10-17] MEDS: FLUCONAZOLE 100 MG TABLET (UD) PO SCH (09:43)
[2018-10-17] MEDS: FUROSEMIDE 40 MG TABLET (FP) PO SCH (09:43)
[2018-10-17] MEDS: POLYETHYLENE GLYCOL 3350 119 GM BTL PO SCH ×2 (09:45→21:15)
[2018-10-17] MEDS: NYSTATIN 100,000 UNIT/GM TOPICAL CREAM 15 GM TUBE TP SCH ×2 (09:45→21:15)
[2018-10-17] MEDS: BENZOCAINE 20 % GEL TUBE MM PRN (09:45)
[2018-10-17] MEDS: ALBUTEROL SO4 2.5/IPRATROPIUM 0.5 INH SOL 3 ML VIAL.NEB. NEB SCH ×4 (09:58→20:20)
--- NOTE | 2018-10-17 11:13 | PN ---
Physical Exam: SUBJECTIVE: Patient seen and examined OBJECTIVE: Vital Signs Period Temp Pulse Resp BP Sys/Jones Pulse Ox Last 24 Hr 98.2 F-99.4 F 78-92 18-22 108-138/58-90 96-96 GENERAL: The patient is awake, alert, and fully oriented, in no acute distress. HEAD: Normal with no signs of trauma. EYES: PERRL, extraocular movements intact, sclera anicteric, conjunctiva clear. No ptosis. ENT: Ears normal, nares patent, oropharynx clear without exudates, moist mucous membranes. NECK: Trachea midline, full range of motion, supple. LUNGS: christelle mild wheezing HEART: Regular rate and rhythm, S1, S2 without murmur, rub or gallop. ABDOMEN: Soft, nontender, nondistended, normoactive bowel sounds, no guarding, no rebound, no hepatosplenomegaly, no masses. EXTREMITIES: 2+ pulses, warm, well-perfused, no edema. and she has chronic changes NEUROLOGICAL: Cranial nerves II through XII grossly intact. Normal speech, gait not observed. PSYCH: Normal mood, normal affect. SKIN: Warm, dry, normal turgor, no rashes or lesions noted Laboratory Results - last 24 hr 10/16/18 10/16/18 10/16/18 12:02 17:13 22:04 POC Glucometer 133 156 162 10/17/18 06:25 POC Glucometer 152 Active Medications Generic Name Dose Route Start Last Admin Trade Name Freq PRN Reason Stop Dose Admin Acetaminophen 325 mg 10/13/18 16:15 10/16/18 15:14 Tylenol - PO 325 mg Q6H PRN Administration PAIN Al Hydroxide/Mg Hydroxide 30 ml 10/16/18 13:57 10/16/18 15:14 Mylanta Oral Suspension - PO 30 ml Q6H PRN Administration DYSPEPSIA Albuterol Sulfate 1 amp 10/14/18 02:50 Ventolin 0.083% Nebulizer Soln - NEB Q4H PRN SHORT OF BREATH/WHEEZING Albuterol/Ipratropium 1 amp 10/14/18 08:00 10/17/18 09:58 Duoneb - NEB 1 amp RQID [facility] Administration Benzocaine 1 applic 10/14/18 08:55 10/17/18 09:45 Anbesol - MM 1 applic Q6H PRN Administration Canker sores Docusate Sodium 200 mg 10/14/18 02:50 Colace Liquid - PO DAILY PRN CONSTIPATION Fluconazole 100 mg 10/14/18 10:00 10/17/18 09:43 Diflucan - PO 100 mg DAILY [facility] Administration Furosemide 40 mg 10/16/18 10:00 10/17/18 09:43 Lasix - PO 40 mg DAILY [facility] Administration Heparin Sodium (Porcine) 5,000 unit 10/14/18 06:00 10/17/18 06:26 Heparin - SQ 5,000 unit TID [facility] Administration Cefazolin Sodium/Dextrose 2 gm in 50 mls @ 100 mls/hr 10/14/18 03:00 10:08 Ancef 2 Gm Premixed Ivpb - IVPB 100 mls/hr Q6H-IV [facility] Administration Insulin Aspart 1 vial 10/16/18 16:30 10/17/18 06:26 Novolog Vial Sliding Scale - SQ 2 units ACHS [facility] Administration Protocol Insulin Detemir 45 units 10/14/18 07:00 10/17/18 06:26 Levemir Vial SQ 45 units BID@0700,2200 [facility] Administration Losartan Potassium 25 mg 10/14/18 10:00 10/17/18 09:43 Cozaar - PO 25 mg DAILY [facility] Administration Nystatin 1 applic 10/16/18 10:00 10/17/18 09:45 Mycostatin Cream - TP 1 applic BID [facility] Administration Pantoprazole Sodium 40 mg 10/16/18 10:00 10/17/18 09:43 Protonix - PO 40 mg DAILY [facility] Administration Polyethylene Glycol 17 gm 10/14/18 10:00 10/17/18 09:45 Miralax (For Daily Use) - PO Not Given BID [facility] ASSESSMENT/PLAN: Acute on Chronic Hypoxic and Hypercapneic Respiratory Failure,Obstructive Sleep Apnea/Obesity Hypoventilation Syndrome: unclear trigger, she most likely will need to have CPAP for LYLY on discharge,still on O2 NC, will monitor the Sat off O2 supplement Acute on Chronic Diastolic Heart Failure, improved continue same meds Cellulitis:improved not at this time and has chronic skin changes on iv cefazelin Acute Kidney Injury: better Morbid Obesity HTN: C/W current medication DM: c/w current regimen severe deconditioing: will need ELIZABETH but she states that she is not willing to go to rehab and wants to go home. - DVT/GI prophylaxis she has skin excoriation on her pelvic area due to sweating and she has mild diarrhea continue the nystatin physical therapy d/w her discharge and she only wants to go home
--- NOTE | 2018-10-17 12:45 | PN ---
Progress Note (short form) - Note Progress Note: PULMONARY Breathing continues to improve. Saturating well on nasal cannula. Vital Signs Period Temp Pulse Resp BP Sys/Jones Pulse Ox Last 24 Hr 98.2 F-99.4 F 78-92 18-22 108-138/58-90 96-96 Intake & Output 10/14/18 10/15/18 10/16/18 10/17/18 23:59 23:59 23:59 23:59 Intake Total 1530 1350 310 50 Output Total 5100 4750 2100 1200 Balance -3570 -3400 -1790 -1150 Weight 172.393 kg 167.829 kg 161.479 kg 165.561 kg Gen: anxious but NAD Heart: RRR Lung: distant breath sounds Abd: soft, nontender Ext: less edema CBC, BMP 10/15/18 05:30 10/15/18 05:30 Active Medications Acetaminophen (Tylenol -) 325 mg PO Q6H PRN PRN Reason: PAIN Last Admin: 10/16/18 15:14 Dose: 325 mg Al Hydroxide/Mg Hydroxide (Mylanta Oral Suspension -) 30 ml PO Q6H PRN PRN Reason: DYSPEPSIA Last Admin: 10/16/18 15:14 Dose: 30 ml Albuterol Sulfate (Ventolin 0.083% Nebulizer Soln -) 1 amp NEB Q4H PRN PRN Reason: SHORT OF BREATH/WHEEZING Albuterol/Ipratropium (Duoneb -) 1 amp NEB RQID [facility] Last Admin: 10/17/18 09:58 Dose: 1 amp Benzocaine (Anbesol -) 1 applic MM Q6H PRN PRN Reason: Canker sores Last Admin: 10/17/18 09:45 Dose: 1 applic Docusate Sodium (Colace Liquid -) 200 mg PO DAILY PRN PRN Reason: CONSTIPATION Fluconazole (Diflucan -) 100 mg PO DAILY [facility] Last Admin: 10/17/18 09:43 Dose: 100 mg Furosemide (Lasix -) 40 mg PO DAILY [facility] Last Admin: 10/17/18 09:43 Dose: 40 mg Heparin Sodium (Porcine) (Heparin -) 5,000 unit SQ TID [facility] Last Admin: 10/17/18 06:26 Dose: 5,000 unit Cefazolin Sodium/Dextrose (Ancef 2 Gm Premixed Ivpb -) 2 gm in 50 mls @ 100 mls /hr IVPB Q6H-IV [facility] Last Admin: 10/17/18 10:08 Dose: 100 mls/hr Insulin Aspart (Novolog Vial Sliding Scale -) 1 vial SQ ACHS [facility]; Protocol Last Admin: 10/17/18 11:34 Dose: 2 units Insulin Detemir (Levemir Vial) 45 units SQ BID@0700,2200 [facility] Last Admin: 10/17/18 06:26 Dose: 45 units Losartan Potassium (Cozaar -) 25 mg PO DAILY [facility] Last Admin: 10/17/18 09:43 Dose: 25 mg Nystatin (Mycostatin Cream -) 1 applic TP BID [facility] Last Admin: 10/17/18 09:45 Dose: 1 applic Pantoprazole Sodium (Protonix -) 40 mg PO DAILY [facility] Last Admin: 10/17/18 09:43 Dose: 40 mg Polyethylene Glycol (Miralax (For Daily Use) -) 17 gm PO BID [facility] Last Admin: 10/17/18 09:45 Dose: Not Given A/P Acute on Chronic Hypoxic and Hypercapneic Respiratory Failure Volume Overload Acute on Chronic Diastolic Heart Failure Acute Asthma Exacerbation Cellulitis MSSA Bacteremia Sepsis Lactic Acidosis +Troponins likely Demand Ischemia Acute Kidney Injury Morbid Obesity Obstructive Sleep Apnea/Obesity Hypoventilation Syndrome HTN DM h/o DVT - continue lasix - monitor urine output, creatinine - inhaled bronchodilators standing and PRN - O2 to keep SpO2 >90% - antibiotics per ID - rehab/PT - DVT/GI prophylaxis
[2018-10-17 14:29] VITALS: BMI 62.6
[2018-10-18] MEDS: CEFAZOLIN 2 GM/D5W 2 GM/50 ML ML IVPB SCH ×4 (02:00→21:34)
[2018-10-18] MEDS: HEPARIN NA (PORCINE) 5,000 UNITS/ML 1ML VIAL SQ SCH ×3 (06:50→21:34)
[2018-10-18] MEDS: INSULIN (LEVEMIR) 100 UNITS/ML UNITS SQ SCH ×2 (06:54→21:35)
[2018-10-18] MEDS: INSULIN SLIDING SCALE (NOVOLOG) 1 VIAL SQ SCH ×4 (06:55→21:35)
[2018-10-18] MEDS: ALBUTEROL SO4 2.5/IPRATROPIUM 0.5 INH SOL 3 ML VIAL.NEB. NEB SCH ×4 (08:00→20:57)
[2018-10-18] MEDS: PANTOPRAZOLE 40 MG TABLET (FP) PO SCH (09:21)
[2018-10-18] MEDS: FUROSEMIDE 40 MG TABLET (FP) PO SCH (09:21)
[2018-10-18] MEDS: LOSARTAN POTASSIUM 25 MG TABLET PO SCH (09:21)
[2018-10-18] MEDS: FLUCONAZOLE 100 MG TABLET (UD) PO SCH (09:21)
[2018-10-18] MEDS: POLYETHYLENE GLYCOL 3350 119 GM BTL PO SCH ×2 (09:22→21:35)
[2018-10-18] MEDS: NYSTATIN 100,000 UNIT/GM TOPICAL CREAM 15 GM TUBE TP SCH ×2 (09:22→23:57)
--- NOTE | 2018-10-18 09:23 | PN ---
Progress Note, Physician History of Present Illness: seen and examined in ICU - Current Medication List Current Medications: Active Medications Acetaminophen (Tylenol -) 325 mg PO Q6H PRN PRN Reason: PAIN Last Admin: 10/16/18 15:14 Dose: 325 mg Al Hydroxide/Mg Hydroxide (Mylanta Oral Suspension -) 30 ml PO Q6H PRN PRN Reason: DYSPEPSIA Last Admin: 10/16/18 15:14 Dose: 30 ml Albuterol Sulfate (Ventolin 0.083% Nebulizer Soln -) 1 amp NEB Q4H PRN PRN Reason: SHORT OF BREATH/WHEEZING Albuterol/Ipratropium (Duoneb -) 1 amp NEB RQID [facility] Last Admin: 10/17/18 20:20 Dose: Not Given Benzocaine (Anbesol -) 1 applic MM Q6H PRN PRN Reason: Canker sores Last Admin: 10/17/18 09:45 Dose: 1 applic Docusate Sodium (Colace Liquid -) 200 mg PO DAILY PRN PRN Reason: CONSTIPATION Fluconazole (Diflucan -) 100 mg PO DAILY [facility] Last Admin: 10/17/18 09:43 Dose: 100 mg Furosemide (Lasix -) 40 mg PO DAILY [facility] Last Admin: 10/17/18 09:43 Dose: 40 mg Heparin Sodium (Porcine) (Heparin -) 5,000 unit SQ TID [facility] Last Admin: 10/18/18 06:50 Dose: 5,000 unit Cefazolin Sodium/Dextrose (Ancef 2 Gm Premixed Ivpb -) 2 gm in 50 mls @ 100 mls /hr IVPB Q6H-IV [facility] Last Admin: 10/18/18 02:00 Dose: 100 mls/hr Insulin Aspart (Novolog Vial Sliding Scale -) 1 vial SQ ACHS [facility]; Protocol Last Admin: 10/18/18 06:55 Dose: Not Given Insulin Detemir (Levemir Vial) 45 units SQ BID@0700,2200 [facility] Last Admin: 10/18/18 06:54 Dose: 45 units Losartan Potassium (Cozaar -) 25 mg PO DAILY [facility] Last Admin: 10/17/18 09:43 Dose: 25 mg Nystatin (Mycostatin Cream -) 1 applic TP BID [facility] Last Admin: 10/17/18 21:15 Dose: 1 applic Pantoprazole Sodium (Protonix -) 40 mg PO DAILY [facility] Last Admin: 10/17/18 09:43 Dose: 40 mg Polyethylene Glycol (Miralax (For Daily Use) -) 17 gm PO BID [facility] Last Admin: 10/17/18 21:15 Dose: Not Given - Objective Vital Signs: Vital Signs Temperature 98.7 F 10/18/18 05:00 Pulse Rate 90 10/18/18 05:00 Respiratory Rate 18 10/18/18 08:03 Blood Pressure 112/62 10/18/18 05:00 O2 Sat by Pulse Oximetry (%) 96 10/18/18 08:03 Eyes: Yes: WNL, Conjunctiva Clear, EOM Intact HENT: Yes: WNL, Atraumatic, Normocephalic Neck: Yes: WNL, Supple, Trachea Midline Cardiovascular: Yes: WNL, Regular Rate and Rhythm Respiratory: Yes: Diminished Gastrointestinal: Yes: WNL, Normal Bowel Sounds Genitourinary: Yes: WNL Musculoskeletal: Yes: WNL Extremities: Yes: WNL Edema: Yes Integumentary: Yes: WNL Neurological: Yes: WNL, Alert, Oriented ...Motor Strength: WNL Psychiatric: Yes: WNL Labs: CBC, BMP 10/15/18 05:30 10/15/18 05:30 INR, PTT INR 1.42 (0.83-1.09) H 10/07/18 08:30 Assessment/Plan Problems (1) Sleep apnea Code(s): G47.30 - SLEEP APNEA, UNSPECIFIED (2) Acute on chronic diastolic CHF (congestive heart failure) Assessment/Plan: P. Now on losartan and furosemide. ECHO: normal LVEF. F/u BUN/Cr, electrolytes, daily weight, Is and Os. Code(s): I50.33 - ACUTE ON CHRONIC DIASTOLIC (CONGESTIVE) HEART FAILURE (3) Morbid obesity Assessment/Plan: The need for diet modifcation and weight is paramount; this was discussed with pt. Code(s): E66.01 - MORBID (SEVERE) OBESITY DUE TO EXCESS CALORIES (4) [place] cardiac risk >20% in next 10 years Assessment/Plan: aggressive control of lipids (f/u lipid panel; TSH WNL) and glucose. Coronary artery evaluation when stable (stress MIBI),especially if unable to obtain results of stress test reported by pt to have been done withing the past year at [facility] in preparation for uterine fibroid surgery (the surgery which was ?never done). Code(s): Z91.89 - OTH PERSONAL RISK FACTORS, NOT ELSEWHERE CLASSIFIED (5) Elevated troponin Assessment/Plan: mildly increased TNI (0.07), with normal CKMB. Normal EKG. Likely demand ischemia from sepsis, CHF, respiratory failure. Code(s): R74.8 - ABNORMAL LEVELS OF OTHER SERUM ENZYMES (6) Sepsis Assessment/Plan: Leukocytosis improving ; afebrile. diflucan changed to PO Antibiotics per ID; f/u cultures. Code(s): A41.9 - SEPSIS, UNSPECIFIED ORGANISM Qualifiers: Sepsis type: sepsis due to unspecified organism Qualified Code(s): A41.9 - Sepsis, unspecified organism (7) Diabetes Assessment/Plan: HGBA1c>12 Code(s): E11.9 - TYPE 2 DIABETES MELLITUS WITHOUT COMPLICATIONS
--- NOTE | 2018-10-18 11:28 | PN ---
Progress Note (short form) - Note Progress Note: 63 y/o female found lying in bed. Reports breathing is a little better. Vital Signs Period Temp Pulse Resp BP Sys/Jones Pulse Ox Last 24 Hr 97.8 F-99.4 F 90-100 18-22 112-143/52-62 96-96 CBC, BMP 10/15/18 05:30 10/15/18 05:30 HEENT- Normocephalic rt side of upper lip edematous but improving Neck-supple Lungs- CTAB Heart- S1/S2 Abd- Obese, Soft, nt Ext- B/L 1+ pitting edema Active Medications Acetaminophen (Tylenol -) 325 mg PO Q6H PRN PRN Reason: PAIN Last Admin: 10/16/18 15:14 Dose: 325 mg Al Hydroxide/Mg Hydroxide (Mylanta Oral Suspension -) 30 ml PO Q6H PRN PRN Reason: DYSPEPSIA Last Admin: 10/16/18 15:14 Dose: 30 ml Albuterol Sulfate (Ventolin 0.083% Nebulizer Soln -) 1 amp NEB Q4H PRN PRN Reason: SHORT OF BREATH/WHEEZING Albuterol/Ipratropium (Duoneb -) 1 amp NEB RQID [facility] Last Admin: 10/18/18 08:00 Dose: 1 amp Amino Acids (Prosource No Carb Liquid Pkt) 30 ml PO BID@0800,1730 [facility] Benzocaine (Anbesol -) 1 applic MM Q6H PRN PRN Reason: Canker sores Last Admin: 10/17/18 09:45 Dose: 1 applic Docusate Sodium (Colace Liquid -) 200 mg PO DAILY PRN PRN Reason: CONSTIPATION Fluconazole (Diflucan -) 100 mg PO DAILY [facility] Last Admin: 10/18/18 09:21 Dose: 100 mg Furosemide (Lasix -) 40 mg PO DAILY [facility] Last Admin: 10/18/18 09:21 Dose: 40 mg Heparin Sodium (Porcine) (Heparin -) 5,000 unit SQ TID [facility] Last Admin: 10/18/18 06:50 Dose: 5,000 unit Cefazolin Sodium/Dextrose (Ancef 2 Gm Premixed Ivpb -) 2 gm in 50 mls @ 100 mls /hr IVPB Q6H-IV [facility] Last Admin: 10/18/18 09:21 Dose: 100 mls/hr Insulin Aspart (Novolog Vial Sliding Scale -) 1 vial SQ ACHS [facility]; Protocol Last Admin: 10/18/18 06:55 Dose: Not Given Insulin Detemir (Levemir Vial) 45 units SQ BID@0700,2200 [facility] Last Admin: 10/18/18 06:54 Dose: 45 units Losartan Potassium (Cozaar -) 25 mg PO DAILY [facility] Last Admin: 10/18/18 09:21 Dose: 25 mg Nystatin (Mycostatin Cream -) 1 applic TP BID [facility] Last Admin: 10/18/18 09:22 Dose: 1 applic Pantoprazole Sodium (Protonix -) 40 mg PO DAILY [facility] Last Admin: 10/18/18 09:21 Dose: 40 mg Polyethylene Glycol (Miralax (For Daily Use) -) 17 gm PO BID [facility] Last Admin: 10/18/18 09:22 Dose: # acute on chronic resp failure -- hypoxic / hypercapneic / LYLY with hypoventilation/ HFpEF / Asthma continue lasix / nebulizer/ IV steroids / PPI Appreciate Pulmonary # Sepsis IV antibiotics per ID # DM sliding scale Levemir 45 u SQ BID # HTN BP stable Continue acei # CAD Mildly elevated TNI appreciate Cardio Problem List - Problems (1) Respiratory failure with hypercapnia Code(s): J96.92 - RESPIRATORY FAILURE, UNSPECIFIED WITH HYPERCAPNIA (2) Sepsis Code(s): A41.9 - SEPSIS, UNSPECIFIED ORGANISM Qualifiers: Sepsis type: sepsis due to unspecified organism Qualified Code(s): A41.9 - Sepsis, unspecified organism (3) JOEY (acute kidney injury) Code(s): N17.9 - ACUTE KIDNEY FAILURE, UNSPECIFIED (4) Respiratory distress Code(s): R06.03 - ACUTE RESPIRATORY DISTRESS (5) Elevated troponin Code(s): R74.8 - ABNORMAL LEVELS OF OTHER SERUM ENZYMES (6) Hypoxia Code(s): R09.02 - HYPOXEMIA (7) Sleep apnea Code(s): G47.30 - SLEEP APNEA, UNSPECIFIED (8) Acute on chronic diastolic CHF (congestive heart failure) Code(s): I50.33 - ACUTE ON CHRONIC DIASTOLIC (CONGESTIVE) HEART FAILURE (9) Congestive heart disease Code(s): I50.9 - HEART FAILURE, UNSPECIFIED (10) Elevated brain natriuretic peptide (BNP) level Code(s): R79.89 - OTHER SPECIFIED ABNORMAL FINDINGS OF BLOOD CHEMISTRY (11) HTN (hypertension) Code(s): I10 - ESSENTIAL (PRIMARY) HYPERTENSION (12) Morbid obesity Code(s): E66.01 - MORBID (SEVERE) OBESITY DUE TO EXCESS CALORIES
--- NOTE | 2018-10-18 12:06 | PN ---
Progress Note (short form) - Note Progress Note: PULMONARY Breathing continues to improve. Saturating well on nasal cannula. Eating lunch appears stable VSS Gen: anxious but NAD Heart: RRR Lung: distant breath sounds Abd: soft, nontender Ext: lymph edema Active Medications noted meds/labs/notes/images reviewed A/P Acute on Chronic Hypoxic and Hypercapneic Respiratory Failure Volume Overload Acute on Chronic Diastolic Heart Failure Acute Asthma Exacerbation Cellulitis MSSA Bacteremia Sepsis Lactic Acidosis +Troponins likely Demand Ischemia Acute Kidney Injury Morbid Obesity Obstructive Sleep Apnea/Obesity Hypoventilation Syndrome HTN DM h/o DVT - continue lasix - monitor urine output, creatinine - inhaled bronchodilators standing and PRN - O2 to keep SpO2 >90% - antibiotics per ID - rehab/PT - DVT/GI prophylaxis Cindy CANO MD
[2018-10-18] MEDS: AMINO ACIDS/PROTEIN HYDROLYS 30 ML LIQUID.PKT PO SCH (17:06)
[2018-10-18] MEDS ORDERED: INSULIN SLIDING SCALE (NOVOLOG) 1 VIAL SQ ONE (18:36)
[2018-10-18] MEDS ORDERED: INSULIN (LEVEMIR) 100 UNITS/ML UNITS SQ ONE (18:36)
[2018-10-18] MEDS ORDERED: PT OWN MED DRAWER 7, Y5N ONE ×2 (18:36→21:24)
[2018-10-18] MEDS: ACETAMINOPHEN 325 MG TABLET (FP) PO PRN (21:46)
--- NOTE | 2018-10-18 23:37 | PN ---
Progress Note, Physician History of Present Illness: Awake, alert Seated in bed No complaints Afebrile Tolerating antibiotics - Current Medication List Current Medications: Active Medications Acetaminophen (Tylenol -) 325 mg PO Q6H PRN PRN Reason: PAIN Last Admin: 10/18/18 21:46 Dose: 325 mg Al Hydroxide/Mg Hydroxide (Mylanta Oral Suspension -) 30 ml PO Q6H PRN PRN Reason: DYSPEPSIA Last Admin: 10/16/18 15:14 Dose: 30 ml Albuterol Sulfate (Ventolin 0.083% Nebulizer Soln -) 1 amp NEB Q4H PRN PRN Reason: SHORT OF BREATH/WHEEZING Albuterol/Ipratropium (Duoneb -) 1 amp NEB RQID [facility] Last Admin: 10/18/18 20:57 Dose: 1 amp Amino Acids (Prosource No Carb Liquid Pkt) 30 ml PO BID@0800,1730 [facility] Last Admin: 10/18/18 17:06 Dose: 30 ml Benzocaine (Anbesol -) 1 applic MM Q6H PRN PRN Reason: Canker sores Last Admin: 10/17/18 09:45 Dose: 1 applic Docusate Sodium (Colace Liquid -) 200 mg PO DAILY PRN PRN Reason: CONSTIPATION Fluconazole (Diflucan -) 100 mg PO DAILY [facility] Last Admin: 10/18/18 09:21 Dose: 100 mg Furosemide (Lasix -) 40 mg PO DAILY [facility] Last Admin: 10/18/18 09:21 Dose: 40 mg Heparin Sodium (Porcine) (Heparin -) 5,000 unit SQ TID [facility] Last Admin: 10/18/18 21:34 Dose: 5,000 unit Cefazolin Sodium/Dextrose (Ancef 2 Gm Premixed Ivpb -) 2 gm in 50 mls @ 100 mls /hr IVPB Q6H-IV [facility] Last Admin: 10/18/18 21:34 Dose: 100 mls/hr Insulin Aspart (Novolog Vial Sliding Scale -) 1 vial SQ ACHS [facility]; Protocol Last Admin: 10/18/18 21:35 Dose: 2 units Insulin Detemir (Levemir Vial) 45 units SQ BID@0700,2200 [facility] Last Admin: 10/18/18 21:35 Dose: 45 units Losartan Potassium (Cozaar -) 25 mg PO DAILY [facility] Last Admin: 10/18/18 09:21 Dose: 25 mg Nystatin (Mycostatin Cream -) 1 applic TP BID [facility] Last Admin: 10/18/18 09:22 Dose: 1 applic Pantoprazole Sodium (Protonix -) 40 mg PO DAILY [facility] Last Admin: 10/18/18 09:21 Dose: 40 mg Polyethylene Glycol (Miralax (For Daily Use) -) 17 gm PO BID [facility] Last Admin: 10/18/18 21:35 Dose: Not Given - Objective Vital Signs: Vital Signs Temperature 98.9 F 10/18/18 21:00 Pulse Rate 93 H 10/18/18 21:00 Respiratory Rate 18 10/18/18 21:00 Blood Pressure 125/61 10/18/18 21:00 O2 Sat by Pulse Oximetry (%) 97 10/18/18 21:00 Constitutional: Yes: No Distress, Obese Cardiovascular: Yes: Regular Rate and Rhythm, S1, S2 Respiratory: Yes: CTA Bilaterally Gastrointestinal: Yes: Normal Bowel Sounds, Soft Labs: CBC, BMP 10/15/18 05:30 10/15/18 05:30 INR, PTT INR 1.42 (0.83-1.09) H 10/07/18 08:30 Assessment/Plan MSSA BACTEREMIA S/P RESP FAILURE MORBID OBESITY MRSA COLONIZATION CONTINUE CEFAZOLIN.
--- NOTE | 2018-10-19 00:17 | PN ---
Progress Note, Physician Chief Complaint: Pt A&Ox3; c/o slow-healing upper lip lesion; no chest pain or dyspnea. History of Present Illness: he patient is a 63 year old female, with a significant PMH of hypertension, asthma, diastolic CHF, GERD, prior lower extremity DVT, morbid obesity, DM, anemia, abdominal fibroids, who presents to the emergency department with altered mental status. As per , the patient was noted to be fading in/ out of conversation yesterday. He states he called EMS this morning as the patient was unresponsive. He also states the patient has had malodorous urine for several days. As per EMS, patient blood sugar was in the 300s while en route to the ER. Found febrile on admission. - Current Medication List Current Medications: Active Medications Acetaminophen (Tylenol -) 325 mg PO Q6H PRN PRN Reason: PAIN Last Admin: 10/18/18 21:46 Dose: 325 mg Al Hydroxide/Mg Hydroxide (Mylanta Oral Suspension -) 30 ml PO Q6H PRN PRN Reason: DYSPEPSIA Last Admin: 10/16/18 15:14 Dose: 30 ml Albuterol Sulfate (Ventolin 0.083% Nebulizer Soln -) 1 amp NEB Q4H PRN PRN Reason: SHORT OF BREATH/WHEEZING Albuterol/Ipratropium (Duoneb -) 1 amp NEB RQID [facility] Last Admin: 10/18/18 20:57 Dose: 1 amp Amino Acids (Prosource No Carb Liquid Pkt) 30 ml PO BID@0800,1730 [facility] Last Admin: 10/18/18 17:06 Dose: 30 ml Benzocaine (Anbesol -) 1 applic MM Q6H PRN PRN Reason: Canker sores Last Admin: 10/17/18 09:45 Dose: 1 applic Docusate Sodium (Colace Liquid -) 200 mg PO DAILY PRN PRN Reason: CONSTIPATION Fluconazole (Diflucan -) 100 mg PO DAILY [facility] Last Admin: 10/18/18 09:21 Dose: 100 mg Furosemide (Lasix -) 40 mg PO DAILY [facility] Last Admin: 10/18/18 09:21 Dose: 40 mg Heparin Sodium (Porcine) (Heparin -) 5,000 unit SQ TID [facility] Last Admin: 10/18/18 21:34 Dose: 5,000 unit Cefazolin Sodium/Dextrose (Ancef 2 Gm Premixed Ivpb -) 2 gm in 50 mls @ 100 mls /hr IVPB Q6H-IV [facility] Last Admin: 10/18/18 21:34 Dose: 100 mls/hr Insulin Aspart (Novolog Vial Sliding Scale -) 1 vial SQ ACHS [facility]; Protocol Last Admin: 10/18/18 21:35 Dose: 2 units Insulin Detemir (Levemir Vial) 45 units SQ BID@0700,2200 [facility] Last Admin: 10/18/18 21:35 Dose: 45 units Losartan Potassium (Cozaar -) 25 mg PO DAILY [facility] Last Admin: 10/18/18 09:21 Dose: 25 mg Nystatin (Mycostatin Cream -) 1 applic TP BID [facility] Last Admin: 10/18/18 23:57 Dose: 1 applic Pantoprazole Sodium (Protonix -) 40 mg PO DAILY [facility] Last Admin: 10/18/18 09:21 Dose: 40 mg Polyethylene Glycol (Miralax (For Daily Use) -) 17 gm PO BID [facility] Last Admin: 10/18/18 21:35 Dose: Not Given - Objective Vital Signs: Vital Signs Temperature 98.9 F 10/18/18 21:00 Pulse Rate 93 H 10/18/18 21:00 Respiratory Rate 18 10/18/18 21:00 Blood Pressure 125/61 10/18/18 21:00 O2 Sat by Pulse Oximetry (%) 97 10/18/18 21:00 Constitutional: Yes: Anxious Eyes: Yes: WNL HENT: Yes: WNL Neck: Yes: WNL Cardiovascular: Yes: S1, S2 Respiratory: Yes: WNL Gastrointestinal: Yes: Soft, Abdomen, Obese ...Rectal Exam: Yes: Deferred Genitourinary: Yes: Anuria Breast(s): Yes: WNL Musculoskeletal: Yes: Muscle Weakness Extremities: Yes: Cool Edema: Yes Peripheral Pulses WNL: Yes Integumentary: Yes: WNL Neurological: Yes: WNL Psychiatric: Yes: Alert, Oriented Labs: CBC, BMP 10/15/18 05:30 10/15/18 05:30 INR, PTT INR 1.42 (0.83-1.09) H 10/07/18 08:30 Problem List - Problems (1) Sleep apnea Assessment/Plan: f/u sleep studies Code(s): G47.30 - SLEEP APNEA, UNSPECIFIED (2) Acute on chronic diastolic CHF (congestive heart failure) Assessment/Plan: Elevated BNP; + JVP. CXR: bilateral pleural effusion. Septic; BP stable. Now on losartan and furosemide. ECHO: normal LVEF. F/u BUN/Cr, electrolytes, daily weight, Is and Os. Code(s): I50.33 - ACUTE ON CHRONIC DIASTOLIC (CONGESTIVE) HEART FAILURE (3) Morbid obesity Assessment/Plan: The need for diet modifcation and weight is paramount; this was discussed again with pt. Code(s): E66.01 - MORBID (SEVERE) OBESITY DUE TO EXCESS CALORIES (4) [place] cardiac risk >20% in next 10 years Assessment/Plan: aggressive control of lipids (f/u lipid panel; TSH WNL) and glucose. Stress Lexiscan MIBI 08/24/2017 ([facility]): no myocardial ischemia; normal LVEF. Code(s): Z91.89 - [facility] PERSONAL RISK FACTORS, NOT ELSEWHERE CLASSIFIED (5) Elevated troponin Assessment/Plan: mildly increased TNI (0.07-->0.06), with normal CKMB. Normal EKG. Likely demand ischemia from sepsis, CHF, respiratory failure. Stress MIBI when stable. Code(s): R74.8 - ABNORMAL LEVELS OF OTHER SERUM ENZYMES (6) Sepsis Assessment/Plan: Leukocytosis; febrile. Likely PNA. Antibiotics per ID; f/u cultures. Code(s): A41.9 - SEPSIS, UNSPECIFIED ORGANISM Qualifiers: Sepsis type: sepsis due to unspecified organism Qualified Code(s): A41.9 - Sepsis, unspecified organism (7) Diabetes Assessment/Plan: HGBA1c>12 Consider SGLT2 inhibitor for DM (decreased cardiac events). On ARB. Code(s): E11.9 - TYPE 2 DIABETES MELLITUS WITHOUT COMPLICATIONS (8) Hypomagnesemia Assessment/Plan: repleted; f/u all electrolyte levels. Code(s): E83.42 - HYPOMAGNESEMIA
--- NOTE | 2018-10-19 00:30 | PN ---
Progress Note, Physician Chief Complaint: Pt A&Ox3; c/o slow-healing upper lip lesion; no chest pain or dyspnea.Still with intermittent abdominal discomfort and diarrhea, which she believes is due to antibiotics. History of Present Illness: he patient is a 63 year old female, with a significant PMH of hypertension, asthma, diastolic CHF, GERD, prior lower extremity DVT, morbid obesity, DM, anemia, abdominal fibroids, who presents to the emergency department with altered mental status. As per , the patient was noted to be fading in/ out of conversation yesterday. He states he called EMS this morning as the patient was unresponsive. He also states the patient has had malodorous urine for several days. As per EMS, patient blood sugar was in the 300s while en route to the ER. Found febrile on admission. - Current Medication List Current Medications: Active Medications Acetaminophen (Tylenol -) 325 mg PO Q6H PRN PRN Reason: PAIN Last Admin: 10/18/18 21:46 Dose: 325 mg Al Hydroxide/Mg Hydroxide (Mylanta Oral Suspension -) 30 ml PO Q6H PRN PRN Reason: DYSPEPSIA Last Admin: 10/16/18 15:14 Dose: 30 ml Albuterol Sulfate (Ventolin 0.083% Nebulizer Soln -) 1 amp NEB Q4H PRN PRN Reason: SHORT OF BREATH/WHEEZING Albuterol/Ipratropium (Duoneb -) 1 amp NEB RQID [facility] Last Admin: 10/18/18 20:57 Dose: 1 amp Amino Acids (Prosource No Carb Liquid Pkt) 30 ml PO BID@0800,1730 [facility] Last Admin: 10/18/18 17:06 Dose: 30 ml Benzocaine (Anbesol -) 1 applic MM Q6H PRN PRN Reason: Canker sores Last Admin: 10/17/18 09:45 Dose: 1 applic Docusate Sodium (Colace Liquid -) 200 mg PO DAILY PRN PRN Reason: CONSTIPATION Fluconazole (Diflucan -) 100 mg PO DAILY [facility] Last Admin: 10/18/18 09:21 Dose: 100 mg Furosemide (Lasix -) 40 mg PO DAILY [facility] Last Admin: 10/18/18 09:21 Dose: 40 mg Heparin Sodium (Porcine) (Heparin -) 5,000 unit SQ TID [facility] Last Admin: 10/18/18 21:34 Dose: 5,000 unit Cefazolin Sodium/Dextrose (Ancef 2 Gm Premixed Ivpb -) 2 gm in 50 mls @ 100 mls /hr IVPB Q6H-IV [facility] Last Admin: 10/18/18 21:34 Dose: 100 mls/hr Insulin Aspart (Novolog Vial Sliding Scale -) 1 vial SQ ACHS [facility]; Protocol Last Admin: 10/18/18 21:35 Dose: 2 units Insulin Detemir (Levemir Vial) 45 units SQ BID@0700,2200 [facility] Last Admin: 10/18/18 21:35 Dose: 45 units Losartan Potassium (Cozaar -) 25 mg PO DAILY [facility] Last Admin: 10/18/18 09:21 Dose: 25 mg Nystatin (Mycostatin Cream -) 1 applic TP BID [facility] Last Admin: 10/18/18 23:57 Dose: 1 applic Pantoprazole Sodium (Protonix -) 40 mg PO DAILY [facility] Last Admin: 10/18/18 09:21 Dose: 40 mg Polyethylene Glycol (Miralax (For Daily Use) -) 17 gm PO BID [facility] Last Admin: 10/18/18 21:35 Dose: Not Given - Objective Vital Signs: Vital Signs Temperature 98.9 F 10/18/18 21:00 Pulse Rate 93 H 10/18/18 21:00 Respiratory Rate 18 10/18/18 21:00 Blood Pressure 125/61 10/18/18 21:00 O2 Sat by Pulse Oximetry (%) 97 10/18/18 21:00 Labs: CBC, BMP 10/15/18 05:30 10/15/18 05:30 INR, PTT INR 1.42 (0.83-1.09) H 10/07/18 08:30 Problem List - Problems (1) Sleep apnea Assessment/Plan: Pt says she has LYLY, and had been on nightly CPAP, but insurance issues resulted in the machine not being sent to her home. Code(s): G47.30 - SLEEP APNEA, UNSPECIFIED (2) Acute on chronic diastolic CHF (congestive heart failure) Assessment/Plan: Elevated BNP; + JVP. CXR: bilateral pleural effusion. Septic; BP stable. Now on losartan and furosemide. ECHO: normal LVEF. F/u BUN/Cr, electrolytes, daily weight, Is and Os. Code(s): I50.33 - ACUTE ON CHRONIC DIASTOLIC (CONGESTIVE) HEART FAILURE (3) Morbid obesity Assessment/Plan: The need for diet modifcation and weight is paramount; this was discussed again with pt. Code(s): E66.01 - MORBID (SEVERE) OBESITY DUE TO EXCESS CALORIES (4) [place] cardiac risk >20% in next 10 years Assessment/Plan: aggressive control of lipids (f/u lipid panel; TSH WNL) and glucose. Stress Lexiscan MIBI 08/24/2017 ([facility]): no myocardial ischemia; normal LVEF. Continue aggressive control of risk factors, including diet/weight, cholesterol , glucose, sedentary lifestytle (will require extensive physical rehabilitation and weight loss). Code(s): Z91.89 - OTH PERSONAL RISK FACTORS, NOT ELSEWHERE CLASSIFIED (5) Elevated troponin Assessment/Plan: mildly increased TNI (0.07-->0.06), with normal CKMB. Normal EKG. Likely demand ischemia from sepsis, CHF, respiratory failure. Stress MIBI in late 2016 was negative for myocardial ischemia. Code(s): R74.8 - ABNORMAL LEVELS OF OTHER SERUM ENZYMES (6) Sepsis Assessment/Plan: Leukocytosis; febrile. Likely PNA. Antibiotics per ID; f/u cultures. Code(s): A41.9 - SEPSIS, UNSPECIFIED ORGANISM Qualifiers: Sepsis type: sepsis due to unspecified organism Qualified Code(s): A41.9 - Sepsis, unspecified organism (7) Diabetes Assessment/Plan: HGBA1c>12 Consider SGLT2 inhibitor for DM (decreased cardiac events). On ARB. Code(s): E11.9 - TYPE 2 DIABETES MELLITUS WITHOUT COMPLICATIONS (8) Hypomagnesemia Assessment/Plan: repleted; f/u all electrolyte levels. Code(s): E83.42 - HYPOMAGNESEMIA
[2018-10-19] MEDS: CEFAZOLIN 2 GM/D5W 2 GM/50 ML ML IVPB SCH ×4 (03:14→23:13)
[2018-10-19] MEDS: INSULIN SLIDING SCALE (NOVOLOG) 1 VIAL SQ SCH ×4 (06:24→23:15)
[2018-10-19] MEDS: INSULIN (LEVEMIR) 100 UNITS/ML UNITS SQ SCH ×2 (06:24→23:14)
[2018-10-19] MEDS: HEPARIN NA (PORCINE) 5,000 UNITS/ML 1ML VIAL SQ SCH ×3 (06:25→23:13)
[2018-10-19] MEDS: ACETAMINOPHEN 325 MG TABLET (FP) PO PRN ×2 (06:25→14:36)
[2018-10-19 07:16] LABS: BASO % 0.7 % (0-2.0); EOS % 7.5 % (0-4.5); HEMATOCRIT 33.2 % (32.4-45.2); LYMPH % 14.4 % (8-40); MCH 21.9 pg (25.7-33.7); MEAN CELL VOLUME 73.1 fl (80-96); MEAN PLT VOLUME 9.5 fl (7.5-11.1); MONO % 8.7 % (3.8-10.2); NEUT % 68.7 % (42.8-82.8); PLATELET COUNT 301 K/MM3 (134-434); RBC 4.54 M/mm3 (3.60-5.2); RDW 21.9 % (11.6-15.6); WHITE BLOOD COUNT 11.5 K/mm3 (4.0-10.0)
[2018-10-19 07:27] LABS: ANION GAP 8 MMOL/L (8-16); BLOOD UREA NITROGEN 11 mg/dL (7-18); CALCIUM 8.8 mg/dL (8.5-10.1); CHLORIDE 97 mmol/L (98-107); CO2 35 mmol/L (21-32); CREATININE 0.7 mg/dL (0.55-1.3); GLUCOSE,RANDOM 138 mg/dL (74-106); POTASSIUM 3.9 mmol/L (3.5-5.1); SODIUM 140 mmol/L (136-145)
[2018-10-19] MEDS: ALBUTEROL SO4 2.5/IPRATROPIUM 0.5 INH SOL 3 ML VIAL.NEB. NEB SCH ×4 (08:52→21:10)
[2018-10-19] MEDS: FLUCONAZOLE 100 MG TABLET (UD) PO SCH (10:45)
[2018-10-19] MEDS: PANTOPRAZOLE 40 MG TABLET (FP) PO SCH (10:45)
[2018-10-19] MEDS: FUROSEMIDE 40 MG TABLET (FP) PO SCH (10:45)
[2018-10-19] MEDS: LOSARTAN POTASSIUM 25 MG TABLET PO SCH (10:45)
[2018-10-19] MEDS: POLYETHYLENE GLYCOL 3350 119 GM BTL PO SCH ×2 (10:46→23:14)
[2018-10-19] MEDS: NYSTATIN 100,000 UNIT/GM TOPICAL CREAM 15 GM TUBE TP SCH ×2 (10:46→23:16)
[2018-10-19] MEDS: AMINO ACIDS/PROTEIN HYDROLYS 30 ML LIQUID.PKT PO SCH ×2 (10:46→17:44)
[2018-10-19 12:16] LABS: ANISOCYTOSIS 2+; MACROCYTOSIS 0; PLATELET ESTIMATE NORMAL; TARGET CELLS 1+
--- NOTE | 2018-10-19 12:53 | PN ---
Progress Note, Physician History of Present Illness: pulmonary alert,-resp distress,dyspnea improving,+ c/o generalized pains - Current Medication List Current Medications: Active Medications Acetaminophen (Tylenol -) 325 mg PO Q6H PRN PRN Reason: PAIN Last Admin: 10/19/18 06:25 Dose: 325 mg Al Hydroxide/Mg Hydroxide (Mylanta Oral Suspension -) 30 ml PO Q6H PRN PRN Reason: DYSPEPSIA Last Admin: 10/16/18 15:14 Dose: 30 ml Albuterol Sulfate (Ventolin 0.083% Nebulizer Soln -) 1 amp NEB Q4H PRN PRN Reason: SHORT OF BREATH/WHEEZING Albuterol/Ipratropium (Duoneb -) 1 amp NEB RQID [facility] Last Admin: 10/19/18 11:55 Dose: Not Given Amino Acids (Prosource No Carb Liquid Pkt) 30 ml PO BID@0800,1730 [facility] Last Admin: 10/19/18 10:46 Dose: 30 ml Benzocaine (Anbesol -) 1 applic MM Q6H PRN PRN Reason: Canker sores Last Admin: 10/17/18 09:45 Dose: 1 applic Docusate Sodium (Colace Liquid -) 200 mg PO DAILY PRN PRN Reason: CONSTIPATION Fluconazole (Diflucan -) 100 mg PO DAILY [facility] Last Admin: 10/19/18 10:45 Dose: 100 mg Furosemide (Lasix -) 40 mg PO DAILY [facility] Last Admin: 10/19/18 10:45 Dose: 40 mg Heparin Sodium (Porcine) (Heparin -) 5,000 unit SQ TID [facility] Last Admin: 10/19/18 06:25 Dose: 5,000 unit Cefazolin Sodium/Dextrose (Ancef 2 Gm Premixed Ivpb -) 2 gm in 50 mls @ 100 mls /hr IVPB Q6H-IV [facility] Last Admin: 10/19/18 10:46 Dose: 100 mls/hr Insulin Aspart (Novolog Vial Sliding Scale -) 1 vial SQ ACHS [facility]; Protocol Last Admin: 10/19/18 12:03 Dose: 2 units Insulin Detemir (Levemir Vial) 45 units SQ BID@0700,2200 [facility] Last Admin: 10/19/18 06:24 Dose: 45 units Losartan Potassium (Cozaar -) 25 mg PO DAILY [facility] Last Admin: 10/19/18 10:45 Dose: 25 mg Nystatin (Mycostatin Cream -) 1 applic TP BID [facility] Last Admin: 10/19/18 10:46 Dose: 1 applic Pantoprazole Sodium (Protonix -) 40 mg PO DAILY [facility] Last Admin: 10/19/18 10:45 Dose: 40 mg Polyethylene Glycol (Miralax (For Daily Use) -) 17 gm PO BID [facility] Last Admin: 10/19/18 10:46 Dose: Not Given - Objective Vital Signs: Vital Signs Temperature 98.4 F 10/19/18 06:00 Pulse Rate 91 H 10/19/18 06:00 Respiratory Rate 18 10/19/18 06:00 Blood Pressure 129/64 10/19/18 06:00 O2 Sat by Pulse Oximetry (%) 97 10/18/18 21:00 Constitutional: Yes: Well Nourished, Calm, Obese Eyes: Yes: WNL HENT: Yes: WNL Neck: Yes: WNL Cardiovascular: Yes: Regular Rate and Rhythm, S1, S2 Respiratory: Yes: Diminished Gastrointestinal: Yes: Normal Bowel Sounds, Soft Extremities: Yes: WNL Edema: Yes Labs: CBC, BMP 10/19/18 06:00 10/19/18 06:30 INR, PTT INR 1.42 (0.83-1.09) H 10/07/18 08:30 Problem List - Problems (1) JOEY (acute kidney injury) Code(s): N17.9 - ACUTE KIDNEY FAILURE, UNSPECIFIED (2) Diabetes Code(s): E11.9 - TYPE 2 DIABETES MELLITUS WITHOUT COMPLICATIONS (3) Hypoxia Code(s): R09.02 - HYPOXEMIA (4) Respiratory distress Code(s): R06.03 - ACUTE RESPIRATORY DISTRESS (5) Sleep apnea Code(s): G47.30 - SLEEP APNEA, UNSPECIFIED (6) Acute on chronic respiratory failure with hypoxia and hypercapnia Code(s): J96.21 - ACUTE AND CHRONIC RESPIRATORY FAILURE WITH HYPOXIA; J96.22 - ACUTE AND CHRONIC RESPIRATORY FAILURE WITH HYPERCAPNIA (7) Diastolic CHF, acute on chronic Code(s): I50.33 - ACUTE ON CHRONIC DIASTOLIC (CONGESTIVE) HEART FAILURE (8) Morbid (severe) obesity due to excess calories Code(s): E66.01 - MORBID (SEVERE) OBESITY DUE TO EXCESS CALORIES (9) Obesity hypoventilation syndrome Code(s): E66.2 - MORBID (SEVERE) OBESITY WITH ALVEOLAR HYPOVENTILATION (10) Sleep apnea Code(s): G47.30 - SLEEP APNEA, UNSPECIFIED Assessment/Plan ASSESSMENT AND PLAN: Acute on Chronic Hypoxic and Hypercapneic Respiratory Failure improving Volume Overload Acute on Chronic Diastolic Heart Failure Acute Asthma Exacerbation Cellulitis MSSA Bacteremia Sepsis Lactic Acidosis +Troponins likely [place] Ischemia Acute Kidney Injury Morbid Obesity Obstructive Sleep Apnea/Obesity Hypoventilation Syndrome HTN DM h/o DVT - nasal cannula - lasix - monitor urine output, creatinine - keep net negative - inhaled bronchodilators standing and PRN - antibiotics per ID - rehab/PT - DVT/GI prophylaxis DR DOMÍNGUEZ
--- NOTE | 2018-10-19 14:17 | PN ---
Progress Note, Physician Chief Complaint: Pt denies chest pain or dyhspnea. History of Present Illness: he patient is a 63 year old female, with a significant PMH of hypertension, asthma, diastolic CHF, GERD, prior lower extremity DVT, morbid obesity, DM, anemia, abdominal fibroids, who presents to the emergency department with altered mental status. As per , the patient was noted to be fading in/ out of conversation yesterday. He states he called EMS this morning as the patient was unresponsive. He also states the patient has had malodorous urine for several days. As per EMS, patient blood sugar was in the 300s while en route to the ER. Found febrile on admission. - Current Medication List Current Medications: Active Medications Acetaminophen (Tylenol -) 325 mg PO Q6H PRN PRN Reason: PAIN Last Admin: 10/19/18 06:25 Dose: 325 mg Al Hydroxide/Mg Hydroxide (Mylanta Oral Suspension -) 30 ml PO Q6H PRN PRN Reason: DYSPEPSIA Last Admin: 10/16/18 15:14 Dose: 30 ml Albuterol Sulfate (Ventolin 0.083% Nebulizer Soln -) 1 amp NEB Q4H PRN PRN Reason: SHORT OF BREATH/WHEEZING Albuterol/Ipratropium (Duoneb -) 1 amp NEB RQID [facility] Last Admin: 10/19/18 11:55 Dose: Not Given Amino Acids (Prosource No Carb Liquid Pkt) 30 ml PO BID@0800,1730 [facility] Last Admin: 10/19/18 10:46 Dose: 30 ml Benzocaine (Anbesol -) 1 applic MM Q6H PRN PRN Reason: Canker sores Last Admin: 10/17/18 09:45 Dose: 1 applic Docusate Sodium (Colace Liquid -) 200 mg PO DAILY PRN PRN Reason: CONSTIPATION Fluconazole (Diflucan -) 100 mg PO DAILY [facility] Last Admin: 10/19/18 10:45 Dose: 100 mg Furosemide (Lasix -) 40 mg PO DAILY [facility] Last Admin: 10/19/18 10:45 Dose: 40 mg Heparin Sodium (Porcine) (Heparin -) 5,000 unit SQ TID [facility] Last Admin: 10/19/18 06:25 Dose: 5,000 unit Cefazolin Sodium/Dextrose (Ancef 2 Gm Premixed Ivpb -) 2 gm in 50 mls @ 100 mls /hr IVPB Q6H-IV [facility] Last Admin: 10/19/18 10:46 Dose: 100 mls/hr Insulin Aspart (Novolog Vial Sliding Scale -) 1 vial SQ ACHS [facility]; Protocol Last Admin: 10/19/18 12:03 Dose: 2 units Insulin Detemir (Levemir Vial) 45 units SQ BID@0700,2200 [facility] Last Admin: 10/19/18 06:24 Dose: 45 units Losartan Potassium (Cozaar -) 25 mg PO DAILY [facility] Last Admin: 10/19/18 10:45 Dose: 25 mg Nystatin (Mycostatin Cream -) 1 applic TP BID [facility] Last Admin: 10/19/18 10:46 Dose: 1 applic Pantoprazole Sodium (Protonix -) 40 mg PO DAILY [facility] Last Admin: 10/19/18 10:45 Dose: 40 mg Polyethylene Glycol (Miralax (For Daily Use) -) 17 gm PO BID [facility] Last Admin: 10/19/18 10:46 Dose: Not Given - Objective Vital Signs: Vital Signs Temperature 98.4 F 10/19/18 06:00 Pulse Rate 91 H 10/19/18 06:00 Respiratory Rate 18 10/19/18 06:00 Blood Pressure 129/64 10/19/18 06:00 O2 Sat by Pulse Oximetry (%) 97 10/18/18 21:00 Constitutional: Yes: Anxious, Obese Eyes: Yes: WNL HENT: Yes: WNL Neck: Yes: Decreased ROM Cardiovascular: Yes: S1, S2, S4 Respiratory: Yes: Diminished Gastrointestinal: Yes: Soft, Abdomen, Obese ...Rectal Exam: Yes: Deferred Genitourinary: No: Anuria Breast(s): Yes: WNL Musculoskeletal: Yes: Joint Stiffness, Muscle Weakness Edema: Yes Edema: LUE: 1+ (nonpitting), RUE: 1+, LLE: 1+, RLE: 1+ Peripheral Pulses WNL: Yes Integumentary: Yes: Venous Stasis Changes, Other (sacral decubitus) Neurological: Yes: Alert, Oriented, Weakness Psychiatric: Yes: Other (anxiety) Labs: CBC, BMP 10/19/18 06:00 10/19/18 06:30 INR, PTT INR 1.42 (0.83-1.09) H 10/07/18 08:30 Problem List - Problems (1) Sleep apnea Assessment/Plan: Pt says she has LYLY, and had been on nightly CPAP, but insurance issues resulted in the machine not being sent to her home. Code(s): G47.30 - SLEEP APNEA, UNSPECIFIED (2) Acute on chronic diastolic CHF (congestive heart failure) Assessment/Plan: Elevated BNP; + JVP. CXR: bilateral pleural effusion. Septic; BP stable. Now on losartan and furosemide. ECHO: normal LVEF. F/u BUN/Cr, electrolytes, daily weight, Is and Os. Code(s): I50.33 - ACUTE ON CHRONIC DIASTOLIC (CONGESTIVE) HEART FAILURE (3) Morbid obesity Assessment/Plan: The need for diet modifcation and weight is paramount. Code(s): E66.01 - MORBID (SEVERE) OBESITY DUE TO EXCESS CALORIES (4) [place] cardiac risk >20% in next 10 years Assessment/Plan: aggressive control of lipids (f/u lipid panel; TSH WNL) and glucose. Stress Lexiscan MIBI 08/24/2017 ([facility]): no myocardial ischemia; normal LVEF. Continue aggressive control of risk factors, including diet/weight, cholesterol , glucose, sedentary lifestytle (will require extensive physical rehabilitation and weight loss). Code(s): Z91.89 - OTH PERSONAL RISK FACTORS, NOT ELSEWHERE CLASSIFIED (5) Elevated troponin Assessment/Plan: mildly increased TNI (0.07-->0.06), with normal CKMB. Normal EKG. Likely demand ischemia from sepsis, CHF, respiratory failure. Stress MIBI in late 2016 was negative for myocardial ischemia. Code(s): R74.8 - ABNORMAL LEVELS OF OTHER SERUM ENZYMES (6) Sepsis Assessment/Plan: Leukocytosis; febrile. Likely PNA. Antibiotics per ID; f/u cultures. Code(s): A41.9 - SEPSIS, UNSPECIFIED ORGANISM Qualifiers: Sepsis type: sepsis due to unspecified organism Qualified Code(s): A41.9 - Sepsis, unspecified organism (7) Diabetes Assessment/Plan: HGBA1c>12 Consider SGLT2 inhibitor for DM (may result in decreased cardiac events). On ARB. Code(s): E11.9 - TYPE 2 DIABETES MELLITUS WITHOUT COMPLICATIONS (8) Hypomagnesemia Assessment/Plan: repleted; f/u all electrolyte levels. Code(s): E83.42 - HYPOMAGNESEMIA
[2018-10-19] MEDS: PSYLLIUM 5.85 GM PACKET PO SCH ×2 (18:41→23:14)
--- NOTE | 2018-10-19 22:24 | PN ---
Progress Note, Physician Chief Complaint: Pt A&Ox3; diarrhea (painful because of sacral decubitus) and abdominal discomfort have returned, and ; c/o headache. Denies chest pain or dyspnea. Lying in bed; movement is limited. History of Present Illness: he patient is a 63 year old female, with a significant PMH of hypertension, asthma, diastolic CHF, GERD, prior lower extremity DVT, morbid obesity, DM, anemia, abdominal fibroids, who presents to the emergency department with altered mental status. As per , the patient was noted to be fading in/ out of conversation yesterday. He states he called EMS this morning as the patient was unresponsive. He also states the patient has had malodorous urine for several days. As per EMS, patient blood sugar was in the 300s while en route to the ER. Found febrile on admission. - Current Medication List Current Medications: Active Medications Acetaminophen (Tylenol -) 325 mg PO Q6H PRN PRN Reason: PAIN Last Admin: 10/19/18 06:25 Dose: 325 mg Acetaminophen (Tylenol -) 650 mg PO Q6H PRN PRN Reason: FEVER Last Admin: 10/19/18 14:36 Dose: 650 mg Al Hydroxide/Mg Hydroxide (Mylanta Oral Suspension -) 30 ml PO Q6H PRN PRN Reason: DYSPEPSIA Last Admin: 10/16/18 15:14 Dose: 30 ml Albuterol Sulfate (Ventolin 0.083% Nebulizer Soln -) 1 amp NEB Q4H PRN PRN Reason: SHORT OF BREATH/WHEEZING Albuterol/Ipratropium (Duoneb -) 1 amp NEB RQID [facility] Last Admin: 10/19/18 21:10 Dose: 1 amp Amino Acids (Prosource No Carb Liquid Pkt) 30 ml PO BID@0800,1730 [facility] Last Admin: 10/19/18 17:44 Dose: 30 ml Benzocaine (Anbesol -) 1 applic MM Q6H PRN PRN Reason: Canker sores Last Admin: 10/17/18 09:45 Dose: 1 applic Docusate Sodium (Colace Liquid -) 200 mg PO DAILY PRN PRN Reason: CONSTIPATION Fluconazole (Diflucan -) 100 mg PO DAILY [facility] Last Admin: 10/19/18 10:45 Dose: 100 mg Furosemide (Lasix -) 40 mg PO DAILY [facility] Last Admin: 10/19/18 10:45 Dose: 40 mg Heparin Sodium (Porcine) (Heparin -) 5,000 unit SQ TID [facility] Last Admin: 10/19/18 14:37 Dose: 5,000 unit Cefazolin Sodium/Dextrose (Ancef 2 Gm Premixed Ivpb -) 2 gm in 50 mls @ 100 mls /hr IVPB Q6H-IV [facility] Last Admin: 10/19/18 16:47 Dose: Not Given Insulin Aspart (Novolog Vial Sliding Scale -) 1 vial SQ ACHS [facility]; Protocol Last Admin: 10/19/18 17:44 Dose: 2 units Insulin Detemir (Levemir Vial) 45 units SQ BID@0700,2200 [facility] Last Admin: 10/19/18 06:24 Dose: 45 units Losartan Potassium (Cozaar -) 25 mg PO DAILY [facility] Last Admin: 10/19/18 10:45 Dose: 25 mg Nystatin (Mycostatin Cream -) 1 applic TP BID [facility] Last Admin: 10/19/18 10:46 Dose: 1 applic Pantoprazole Sodium (Protonix -) 40 mg PO DAILY [facility] Last Admin: 10/19/18 10:45 Dose: 40 mg Polyethylene Glycol (Miralax (For Daily Use) -) 17 gm PO BID [facility] Last Admin: 10/19/18 10:46 Dose: Not Given Psyllium Hydrophilic Mucilloid (Metamucil (Sugar-Free) -) 5.85 gm PO BID [facility] Last Admin: 10/19/18 18:41 Dose: 5.85 gm - Objective Vital Signs: Vital Signs Temperature 98.9 F 10/19/18 18:00 Pulse Rate 96 H 10/19/18 18:00 Respiratory Rate 18 10/19/18 18:00 Blood Pressure 130/62 10/19/18 18:00 O2 Sat by Pulse Oximetry (%) 98 10/19/18 10:00 Constitutional: Yes: Anxious, Obese Eyes: Yes: WNL HENT: Yes: WNL Neck: Yes: WNL Cardiovascular: Yes: S1, S2 Respiratory: Yes: Regular Gastrointestinal: Yes: Soft, Abdomen, Obese ...Rectal Exam: Yes: Deferred Genitourinary: No: Anuria Breast(s): Yes: WNL Musculoskeletal: Yes: Back Pain, Joint Stiffness, Muscle Weakness Extremities: Yes: Cool Edema: Yes Edema: LUE: 1+, RUE: 1+, LLE: 1+, RLE: 1+ (nonpitting) Peripheral Pulses WNL: Yes Integumentary: Yes: Pressure Ulcer Neurological: Yes: Alert, Oriented, Weakness Psychiatric: Yes: Alert, Oriented, Other (anxeity/depression) Labs: CBC, BMP 10/19/18 06:00 10/19/18 06:30 INR, PTT INR 1.42 (0.83-1.09) H 10/07/18 08:30 Abnormal Lab Results 10/19/18 10/19/18 10/19/18 06:00 06:30 20:00 WBC 11.5 H Hgb 10.0 L MCV 73.1 L MCH 21.9 L MCHC 30.0 L RDW 21.9 H Eosinophils % 7.5 H D Chloride 97 L Carbon Dioxide 35 H Random Glucose 138 H Magnesium 1.5 L Problem List - Problems (1) Sleep apnea Assessment/Plan: Pt says she has LYLY, and had been on nightly CPAP, but insurance issues resulted in the machine not being sent to her home. Code(s): G47.30 - SLEEP APNEA, UNSPECIFIED (2) Acute on chronic diastolic CHF (congestive heart failure) Assessment/Plan: Elevated BNP; + JVP. CXR: bilateral pleural effusion. Septic; BP stable. Now on losartan and furosemide. ECHO: normal LVEF. F/u BUN/Cr, electrolytes, daily weight, Is and Os. Code(s): I50.33 - ACUTE ON CHRONIC DIASTOLIC (CONGESTIVE) HEART FAILURE (3) Morbid obesity Assessment/Plan: The need for diet modification and weight loss is paramount. Code(s): E66.01 - MORBID (SEVERE) OBESITY DUE TO EXCESS CALORIES (4) [place] cardiac risk >20% in next 10 years Assessment/Plan: aggressive control of lipids (f/u lipid panel; TSH WNL) and glucose. Stress Lexiscan MIBI 08/24/2017 ([facility]): no myocardial ischemia; normal LVEF. Continue aggressive control of risk factors, including diet/weight, cholesterol , glucose, sedentary lifestyle (will require extensive physical rehabilitation and weight loss). Code(s): Z91.89 - OTH PERSONAL RISK FACTORS, NOT ELSEWHERE CLASSIFIED (5) Elevated troponin Assessment/Plan: mildly increased TNI (0.07-->0.06), with normal CKMB. Normal EKG. Likely demand ischemia from sepsis, CHF, respiratory failure. Stress MIBI in late 2017 was negative for myocardial ischemia. Code(s): R74.8 - ABNORMAL LEVELS OF OTHER SERUM ENZYMES (6) Sepsis Code(s): A41.9 - SEPSIS, UNSPECIFIED ORGANISM Qualifiers: Sepsis type: sepsis due to unspecified organism Qualified Code(s): A41.9 - Sepsis, unspecified organism (7) Diabetes Code(s): E11.9 - TYPE 2 DIABETES MELLITUS WITHOUT COMPLICATIONS (8) Hypomagnesemia Code(s): E83.42 - HYPOMAGNESEMIA
[2018-10-19] MEDS ORDERED: MAGNESIUM SULFATE IN WATER 4 GM/50 ML IVPB IVPB ONE (23:15)
--- NOTE | 2018-10-19 23:23 | PN ---
Progress Note (short form) - Note Progress Note: chart reviewed patient in medical [facility] Reports 3 episodes of diarrhea today no abdominal pain / no blood in stool she reports this occurs right after IV abx Stools FOR c DIFF DONE Intake & Output 10/10/18 10/11/18 10/12/18 10/13/18 23:59 23:59 23:59 23:59 Intake Total 1684 1067 305 9637 Output Total 950 3200 4500 3600 Balance 734 -1968 -3760 -2410 Weight 407 lb 1.6 oz 410 lb 1.6 oz 396 lb 5 oz 393 lb 1 oz Intake & Output 10/16/18 10/17/18 10/18/18 10/19/18 23:59 23:59 23:59 23:59 Intake Total 310 150 360 890 Output Total 2100 3800 3600 1620 Balance -1790 -3650 -3240 -730 Weight 356 lb 365 lb 362 lb Vital Signs Period Temp Pulse Resp BP Sys/Jones Pulse Ox Last 24 Hr 98.4 F-98.9 F 91-96 18-18 119-156/60-74 98 morbidly obese female O2 in place extubated heart S1/S2 lungs grossly clear no wheezing obese abdomen / midline surgical scar well healed ext no edema / with chronic changes CBC, BMP 10/19/18 06:00 10/19/18 06:30 CBC, BMP 10/13/18 05:30 10/13/18 05:30 Microbiology 10/09/18 11:35 Blood - Peripheral Venous Blood Culture - Final NO GROWTH AFTER 5 DAYS INCUBATION 10/09/18 11:25 Blood - Peripheral Venous Blood Culture - Final NO GROWTH AFTER 5 DAYS INCUBATION 10/08/18 15:30 Nares - Mrsa Screen - Left MRSA Screen - Final Mr S Aureus 10/07/18 17:00 Sputum - Endotrachea Suction/Ventilator Gram Stain - Final 10/07/18 17:00 Sputum - Endotrachea Suction/Ventilator Sputum Culture - Final NORMAL RESPIRATORY DIOR 10/08/18 15:30 Nares - Mrsa Screen - Right MRSA Screen - Final NO MRSA ISOLATED 10/07/18 08:25 Blood - Peripheral Venous Blood Culture - Final Presumptive Mssa (Pbp2a Neg) 10/07/18 08:25 Blood - Peripheral Venous Blood Culture - Final Staphylococcus Aureus 10/07/18 20:30 Urine For Antigen Detection Legionella Antigen - Final 10/07/18 20:30 Urine For Antigen Detection Streptococcus pneumoniae Antigen (M - Final 10/07/18 08:25 Urine - Urine Clean Catch Urine Culture - Final NO GROWTH OBTAINED Active Medications Acetaminophen (Tylenol -) 325 mg PO Q6H PRN PRN Reason: PAIN Last Admin: 10/19/18 06:25 Dose: 325 mg Acetaminophen (Tylenol -) 650 mg PO Q6H PRN PRN Reason: FEVER Last Admin: 10/19/18 14:36 Dose: 650 mg Al Hydroxide/Mg Hydroxide (Mylanta Oral Suspension -) 30 ml PO Q6H PRN PRN Reason: DYSPEPSIA Last Admin: 10/16/18 15:14 Dose: 30 ml Albuterol Sulfate (Ventolin 0.083% Nebulizer Soln -) 1 amp NEB Q4H PRN PRN Reason: SHORT OF BREATH/WHEEZING Albuterol/Ipratropium (Duoneb -) 1 amp NEB RQID [facility] Last Admin: 10/19/18 21:10 Dose: 1 amp Amino Acids (Prosource No Carb Liquid Pkt) 30 ml PO BID@0800,1730 [facility] Last Admin: 10/19/18 17:44 Dose: 30 ml Benzocaine (Anbesol -) 1 applic MM Q6H PRN PRN Reason: Canker sores Last Admin: 10/17/18 09:45 Dose: 1 applic Docusate Sodium (Colace Liquid -) 200 mg PO DAILY PRN PRN Reason: CONSTIPATION Fluconazole (Diflucan -) 100 mg PO DAILY [facility] Last Admin: 10/19/18 10:45 Dose: 100 mg Furosemide (Lasix -) 40 mg PO DAILY [facility] Last Admin: 10/19/18 10:45 Dose: 40 mg Heparin Sodium (Porcine) (Heparin -) 5,000 unit SQ TID [facility] Last Admin: 10/19/18 14:37 Dose: 5,000 unit Cefazolin Sodium/Dextrose (Ancef 2 Gm Premixed Ivpb -) 2 gm in 50 mls @ 100 mls /hr IVPB Q6H-IV [facility] Last Admin: 10/19/18 16:47 Dose: Not Given Magnesium Sulfate (Magnesium Sulf 4 G/50 Ml Bag) 4 gm in 50 mls @ 25 mls/hr IVPB ONCE ONE Stop: 10/20/18 01:14 Insulin Aspart (Novolog Vial Sliding Scale -) [address] [facility]; Protocol Last Admin: 10/19/18 17:44 Dose: 2 units Insulin Detemir (Levemir Vial) 45 units SQ BID@0700,2200 [facility] Last Admin: 10/19/18 06:24 Dose: 45 units Losartan Potassium (Cozaar -) 25 mg PO DAILY [facility] Last Admin: 10/19/18 10:45 Dose: 25 mg Nystatin (Mycostatin Cream -) 1 applic TP BID [facility] Last Admin: 10/19/18 10:46 Dose: 1 applic Pantoprazole Sodium (Protonix -) 40 mg PO DAILY [facility] Last Admin: 10/19/18 10:45 Dose: 40 mg Polyethylene Glycol (Miralax (For Daily Use) -) 17 gm PO BID [facility] Last Admin: 10/19/18 10:46 Dose: Not Given Psyllium Hydrophilic Mucilloid (Metamucil (Sugar-Free) -) 5.85 gm PO BID [facility] Last Admin: 10/19/18 18:41 Dose: 5.85 gm 63 yo female w/ pmh of HTN, asthma, diastolic CHF, GERD, prior lower extremity DVT, morbid obesity, DM, anemia, abdominal fibroid, BIBA for evaluation of 1 day history of altered mental status. Patient required intubation in ER due to acute hypoxic / hypercapneic respiratory failure, after intubation became hypotensive requiring fluid resuscitation and pressor for support. Once off pressors, extubated and improved breathing was transferred to medical ryder. # Diarrhea ( 3 episodes today ) r/o C diff -- c/s sent metamucil for BM control --- avoid Lomotil / imodium patient with hx of Bowl obstruction X2 both time required emergency surgery ( was transfered to [facility]) # Sepsis MSSA bacterimeia s/p respiratory failure MRSA colonization continue abx # acute on chronic resp failure -- hypoxic / hypercapneic / LYLY with hypoventilation/ HFpEF / Asthma patient has had LYLY diagnosis ( study done at [facility]) and fitted with cpap in the past - no follow through upon discharge from [facility] ( no arrangements at time of d/c from [facility] for DME) continue lasix / nebulizer/ discuss with pulmonary need and arrangements for out patient cpap patient will benefit from STR # DM sliding scale ada diet with calorie control # HTN home meds # CAD elevated TNI -- demand ischemia trend #Morbid obesity weight loss of approx 40lbs during hospital stay -- need to continue weight loss residential -- discussed at length with patient Problem List - Problems (1) Respiratory failure with hypercapnia Code(s): J96.92 - RESPIRATORY FAILURE, UNSPECIFIED WITH HYPERCAPNIA (2) Sepsis Code(s): A41.9 - SEPSIS, UNSPECIFIED ORGANISM Qualifiers: Sepsis type: sepsis due to unspecified organism Qualified Code(s): A41.9 - Sepsis, unspecified organism (3) JOEY (acute kidney injury) Code(s): N17.9 - ACUTE KIDNEY FAILURE, UNSPECIFIED (4) Respiratory distress Code(s): R06.03 - ACUTE RESPIRATORY DISTRESS (5) Elevated troponin Code(s): R74.8 - ABNORMAL LEVELS OF OTHER SERUM ENZYMES (6) Hypoxia Code(s): R09.02 - HYPOXEMIA (7) Sleep apnea Code(s): G47.30 - SLEEP APNEA, UNSPECIFIED (8) Acute on chronic diastolic CHF (congestive heart failure) Code(s): I50.33 - ACUTE ON CHRONIC DIASTOLIC (CONGESTIVE) HEART FAILURE (9) Congestive heart disease Code(s): I50.9 - HEART FAILURE, UNSPECIFIED (10) Elevated brain natriuretic peptide (BNP) level Code(s): R79.89 - OTHER SPECIFIED ABNORMAL FINDINGS OF BLOOD CHEMISTRY (11) HTN (hypertension) Code(s): I10 - ESSENTIAL (PRIMARY) HYPERTENSION (12) Morbid obesity Code(s): E66.01 - MORBID (SEVERE) OBESITY DUE TO EXCESS CALORIES
[2018-10-20] MEDS: SILVER SULFADIAZINE 1% TOP CREAM 50 GM JAR TP SCH ×3 (00:40→21:39)
[2018-10-20] MEDS: CEFAZOLIN 2 GM/D5W 2 GM/50 ML ML IVPB SCH ×4 (02:54→21:40)
[2018-10-20] MEDS: INSULIN (LEVEMIR) 100 UNITS/ML UNITS SQ SCH ×2 (06:39→21:40)
[2018-10-20] MEDS: HEPARIN NA (PORCINE) 5,000 UNITS/ML 1ML VIAL SQ SCH ×3 (06:39→21:40)
[2018-10-20] MEDS: INSULIN SLIDING SCALE (NOVOLOG) 1 VIAL SQ SCH ×4 (06:40→21:40)
[2018-10-20 07:22] LABS: BASO % 0.8 % (0-2.0); EOS % 6.6 % (0-4.5); HEMATOCRIT 32.4 % (32.4-45.2); HEMOGLOBIN 9.7 GM/dL (10.7-15.3); LYMPH % 10.9 % (8-40); MCH 21.9 pg (25.7-33.7); MEAN CELL VOLUME 73.2 fl (80-96); MEAN PLT VOLUME 9.3 fl (7.5-11.1); MONO % 6.8 % (3.8-10.2); NEUT % 74.9 % (42.8-82.8); PLATELET COUNT 289 K/MM3 (134-434); RBC 4.42 M/mm3 (3.60-5.2); RDW 21.9 % (11.6-15.6); WHITE BLOOD COUNT 11.5 K/mm3 (4.0-10.0)
[2018-10-20] MEDS: ALBUTEROL SO4 2.5/IPRATROPIUM 0.5 INH SOL 3 ML VIAL.NEB. NEB SCH ×4 (07:48→20:15)
[2018-10-20 08:05] LABS: ALBUMIN 2.6 g/dl (3.4-5.0); ALK PHOS 75 U/L (45-117); ANION GAP 9 MMOL/L (8-16); BILIRUBIN,TOTAL 0.4 mg/dL (0.2-1); BLOOD UREA NITROGEN 11 mg/dL (7-18); CALCIUM 8.6 mg/dL (8.5-10.1); CHLORIDE 96 mmol/L (98-107); CO2 34 mmol/L (21-32); CREATININE 0.7 mg/dL (0.55-1.3); GLUCOSE,RANDOM 196 mg/dL (74-106); MAGNESIUM 2.4 mg/dL (1.8-2.4); POTASSIUM 3.9 mmol/L (3.5-5.1); SGOT/AST 27 U/L (15-37); SGPT/ALT 17 U/L (13-61); SODIUM 139 mmol/L (136-145); TOT PROT 6.6 g/dl (6.4-8.2)
[2018-10-20] MEDS ORDERED: PT OWN MED DRAWER 7, Y5N ONE ×2 (10:06→21:19)
[2018-10-20] MEDS: PSYLLIUM 5.85 GM PACKET PO SCH ×2 (10:12→21:40)
[2018-10-20] MEDS: AMINO ACIDS/PROTEIN HYDROLYS 30 ML LIQUID.PKT PO SCH ×2 (10:12→17:34)
[2018-10-20] MEDS: FUROSEMIDE 40 MG TABLET (FP) PO SCH (10:13)
[2018-10-20] MEDS: PANTOPRAZOLE 40 MG TABLET (FP) PO SCH (10:13)
[2018-10-20] MEDS: LOSARTAN POTASSIUM 25 MG TABLET PO SCH (10:13)
[2018-10-20] MEDS: FLUCONAZOLE 100 MG TABLET (UD) PO SCH (10:13)
[2018-10-20] MEDS: NYSTATIN 100,000 UNIT/GM TOPICAL CREAM 15 GM TUBE TP SCH ×2 (10:13→21:39)
--- NOTE | 2018-10-20 11:11 | PN ---
Progress Note, Physician History of Present Illness: seen and examined in ICU - Current Medication List Current Medications: Active Medications Acetaminophen (Tylenol -) 325 mg PO Q6H PRN PRN Reason: PAIN Last Admin: 10/19/18 06:25 Dose: 325 mg Acetaminophen (Tylenol -) 650 mg PO Q6H PRN PRN Reason: FEVER Last Admin: 10/19/18 14:36 Dose: 650 mg Albuterol Sulfate (Ventolin 0.083% Nebulizer Soln -) 1 amp NEB Q4H PRN PRN Reason: SHORT OF BREATH/WHEEZING Albuterol/Ipratropium (Duoneb -) 1 amp NEB RQID [facility] Last Admin: 10/19/18 21:10 Dose: 1 amp Amino Acids (Prosource No Carb Liquid Pkt) 30 ml PO BID@0800,1730 [facility] Last Admin: 10/20/18 10:12 Dose: 30 ml Benzocaine (Anbesol -) 1 applic MM Q6H PRN PRN Reason: Canker sores Last Admin: 10/17/18 09:45 Dose: 1 applic Fluconazole (Diflucan -) 100 mg PO DAILY [facility] Last Admin: 10/20/18 10:13 Dose: 100 mg Furosemide (Lasix -) 40 mg PO DAILY [facility] Last Admin: 10/20/18 10:13 Dose: 40 mg Heparin Sodium (Porcine) (Heparin -) 5,000 unit SQ TID [facility] Last Admin: 10/20/18 06:39 Dose: 5,000 unit Cefazolin Sodium/Dextrose (Ancef 2 Gm Premixed Ivpb -) 2 gm in 50 mls @ 100 mls /hr IVPB Q6H-IV [facility] Last Admin: 10/20/18 10:12 Dose: 100 mls/hr Insulin Aspart (Novolog Vial Sliding Scale -) 1 vial SQ ACHS [facility]; Protocol Last Admin: 10/20/18 06:40 Dose: 2 units Insulin Detemir (Levemir Vial) 45 units SQ BID@0700,2200 [facility] Last Admin: 10/20/18 06:39 Dose: 45 units Losartan Potassium (Cozaar -) 25 mg PO DAILY [facility] Last Admin: 10/20/18 10:13 Dose: 25 mg Nystatin (Mycostatin Cream -) 1 applic TP BID [facility] Last Admin: 10/20/18 10:13 Dose: 1 applic Pantoprazole Sodium (Protonix -) 40 mg PO DAILY [facility] Last Admin: 10/20/18 10:13 Dose: 40 mg Psyllium Hydrophilic Mucilloid (Metamucil (Sugar-Free) -) 5.85 gm PO BID [facility] Last Admin: 10/20/18 10:12 Dose: 5.85 gm Silver Sulfadiazine (Silvadene -) 1 applic TP BID [facility] Last Admin: 10/20/18 10:14 Dose: 1 applic - Objective Vital Signs: Vital Signs Temperature 98.2 F 10/20/18 06:00 Pulse Rate 94 H 10/20/18 06:00 Respiratory Rate 18 10/20/18 06:00 Blood Pressure 108/75 10/20/18 06:00 O2 Sat by Pulse Oximetry (%) 98 10/19/18 21:00 Eyes: Yes: WNL, Conjunctiva Clear, EOM Intact HENT: Yes: WNL, Atraumatic, Normocephalic Neck: Yes: WNL, Supple, Trachea Midline Cardiovascular: Yes: WNL, Regular Rate and Rhythm Respiratory: Yes: Diminished Gastrointestinal: Yes: WNL, Normal Bowel Sounds Genitourinary: Yes: WNL Musculoskeletal: Yes: WNL Extremities: Yes: WNL Edema: Yes Edema: LUE: 1+, RUE: 1+, LLE: 1+, RLE: 1+ Integumentary: Yes: WNL Neurological: Yes: WNL, Alert, Oriented ...Motor Strength: WNL Psychiatric: Yes: WNL Labs: CBC, BMP 10/20/18 07:00 10/20/18 07:00 INR, PTT INR 1.42 (0.83-1.09) H 10/07/18 08:30 Assessment/Plan - Problems (1) Sleep apnea Assessment/Plan: Pt says she has LYLY, and had been on nightly CPAP, but insurance issues resulted in the machine not being sent to her home. Code(s): G47.30 - SLEEP APNEA, UNSPECIFIED (2) Acute on chronic diastolic CHF (congestive heart failure) Assessment/Plan: Elevated BNP; + JVP. CXR: bilateral pleural effusion. Septic; BP stable. Now on losartan and furosemide. ECHO: normal LVEF. F/u BUN/Cr, electrolytes, daily weight, Is and Os. Code(s): I50.33 - ACUTE ON CHRONIC DIASTOLIC (CONGESTIVE) HEART FAILURE (3) Morbid obesity Assessment/Plan: The need for diet modification and weight loss is paramount. Code(s): E66.01 - MORBID (SEVERE) OBESITY DUE TO EXCESS CALORIES (4) [place] cardiac risk >20% in next 10 years Assessment/Plan: aggressive control of lipids (f/u lipid panel; TSH WNL) and glucose. Stress Lexiscan MIBI 08/24/2017 ([facility]): no myocardial ischemia; normal LVEF. Continue aggressive control of risk factors, including diet/weight, cholesterol , glucose, sedentary lifestyle (will require extensive physical rehabilitation and weight loss). Code(s): Z91.89 - OTH PERSONAL RISK FACTORS, NOT ELSEWHERE CLASSIFIED (5) Elevated troponin Assessment/Plan: mildly increased TNI (0.07-->0.06), with normal CKMB. Normal EKG. Likely demand ischemia from sepsis, CHF, respiratory failure. Stress MIBI in late 2017 was negative for myocardial ischemia. Code(s): R74.8 - ABNORMAL LEVELS OF OTHER SERUM ENZYMES (6) Sepsis Code(s): A41.9 - SEPSIS, UNSPECIFIED ORGANISM Qualifiers: Sepsis type: sepsis due to unspecified organism Qualified Code(s): A41.9 - Sepsis, unspecified organism (7) Diabetes Code(s): E11.9 - TYPE 2 DIABETES MELLITUS WITHOUT COMPLICATIONS (8) Hypomagnesemia Code(s): E83.42 - HYPOMAGNESEMIA Diarrhea - c diff pending
--- NOTE | 2018-10-20 11:49 | PN ---
Progress Note, Physician History of Present Illness: pulmonary alert,comfortable,-resp distress - Current Medication List Current Medications: Active Medications Acetaminophen (Tylenol -) 325 mg PO Q6H PRN PRN Reason: PAIN Last Admin: 10/19/18 06:25 Dose: 325 mg Acetaminophen (Tylenol -) 650 mg PO Q6H PRN PRN Reason: FEVER Last Admin: 10/19/18 14:36 Dose: 650 mg Albuterol Sulfate (Ventolin 0.083% Nebulizer Soln -) 1 amp NEB Q4H PRN PRN Reason: SHORT OF BREATH/WHEEZING Albuterol/Ipratropium (Duoneb -) 1 amp NEB RQID [facility] Last Admin: 10/19/18 21:10 Dose: 1 amp Amino Acids (Prosource No Carb Liquid Pkt) 30 ml PO BID@0800,1730 [facility] Last Admin: 10/20/18 10:12 Dose: 30 ml Benzocaine (Anbesol -) 1 applic MM Q6H PRN PRN Reason: Canker sores Last Admin: 10/17/18 09:45 Dose: 1 applic Fluconazole (Diflucan -) 100 mg PO DAILY [facility] Last Admin: 10/20/18 10:13 Dose: 100 mg Furosemide (Lasix -) 40 mg PO DAILY [facility] Last Admin: 10/20/18 10:13 Dose: 40 mg Heparin Sodium (Porcine) (Heparin -) 5,000 unit SQ TID [facility] Last Admin: 10/20/18 06:39 Dose: 5,000 unit Cefazolin Sodium/Dextrose (Ancef 2 Gm Premixed Ivpb -) 2 gm in 50 mls @ 100 mls /hr IVPB Q6H-IV [facility] Last Admin: 10/20/18 10:12 Dose: 100 mls/hr Insulin Aspart (Novolog Vial Sliding Scale -) 1 vial SQ ACHS [facility]; Protocol Last Admin: 10/20/18 06:40 Dose: 2 units Insulin Detemir (Levemir Vial) 45 units SQ BID@0700,2200 [facility] Last Admin: 10/20/18 06:39 Dose: 45 units Losartan Potassium (Cozaar -) 25 mg PO DAILY [facility] Last Admin: 10/20/18 10:13 Dose: 25 mg Nystatin (Mycostatin Cream -) 1 applic TP BID [facility] Last Admin: 10/20/18 10:13 Dose: 1 applic Pantoprazole Sodium (Protonix -) 40 mg PO DAILY [facility] Last Admin: 10/20/18 10:13 Dose: 40 mg Psyllium Hydrophilic Mucilloid (Metamucil (Sugar-Free) -) 5.85 gm PO BID [facility] Last Admin: 10/20/18 10:12 Dose: 5.85 gm Silver Sulfadiazine (Silvadene -) 1 applic TP BID [facility] Last Admin: 10/20/18 10:14 Dose: 1 applic - Objective Vital Signs: Vital Signs Temperature 98.2 F 10/20/18 06:00 Pulse Rate 94 H 10/20/18 06:00 Respiratory Rate 18 10/20/18 06:00 Blood Pressure 108/75 10/20/18 06:00 O2 Sat by Pulse Oximetry (%) 98 10/19/18 21:00 Constitutional: Yes: Well Nourished, Calm Eyes: Yes: WNL HENT: Yes: WNL Neck: Yes: WNL Cardiovascular: Yes: Regular Rate and Rhythm, S1, S2 Respiratory: Yes: Diminished Gastrointestinal: Yes: Normal Bowel Sounds, Soft Extremities: Yes: WNL Edema: No Labs: CBC, BMP 10/20/18 07:00 10/20/18 07:00 INR, PTT INR 1.42 (0.83-1.09) H 10/07/18 08:30 Problem List - Problems (1) JOEY (acute kidney injury) Code(s): N17.9 - ACUTE KIDNEY FAILURE, UNSPECIFIED (2) Diabetes Code(s): E11.9 - TYPE 2 DIABETES MELLITUS WITHOUT COMPLICATIONS (3) Hypoxia Code(s): R09.02 - HYPOXEMIA (4) Respiratory distress Code(s): R06.03 - ACUTE RESPIRATORY DISTRESS (5) Sleep apnea Code(s): G47.30 - SLEEP APNEA, UNSPECIFIED (6) Acute on chronic respiratory failure with hypoxia and hypercapnia Code(s): J96.21 - ACUTE AND CHRONIC RESPIRATORY FAILURE WITH HYPOXIA; J96.22 - ACUTE AND CHRONIC RESPIRATORY FAILURE WITH HYPERCAPNIA (7) Diastolic CHF, acute on chronic Code(s): I50.33 - ACUTE ON CHRONIC DIASTOLIC (CONGESTIVE) HEART FAILURE (8) Morbid (severe) obesity due to excess calories Code(s): E66.01 - MORBID (SEVERE) OBESITY DUE TO EXCESS CALORIES (9) Obesity hypoventilation syndrome Code(s): E66.2 - MORBID (SEVERE) OBESITY WITH ALVEOLAR HYPOVENTILATION (10) Sleep apnea Code(s): G47.30 - SLEEP APNEA, UNSPECIFIED Assessment/Plan ASSESSMENT AND PLAN: Acute on Chronic Hypoxic and Hypercapneic Respiratory Failure improving Volume Overload Acute on Chronic Diastolic Heart Failure Acute Asthma Exacerbation Cellulitis MSSA Bacteremia Sepsis Lactic Acidosis +Troponins likely [place] Ischemia Acute Kidney Injury Morbid Obesity Obstructive Sleep Apnea/Obesity Hypoventilation Syndrome HTN DM h/o DVT - nasal cannula - lasix - monitor urine output, creatinine - inhaled bronchodilators standing and PRN - rehab/PT - DVT/GI prophylaxis DR DOMÍNGUEZ
[2018-10-20 13:48] LABS: CHOLESTEROL 140 mg/dL (50-200); HDL CHOLESTEROL 57 mg/dL (40-60); TRIGLYCERIDES 140 mg/dL (0-150)
--- NOTE | 2018-10-20 15:40 | PN ---
Progress Note (short form) - Note Progress Note: patient in medical ryder examined in room discussed with and patients parents POC will need ABX for 2 more weeks arrange for STR no abdominal pain / no blood in stool Intake & Output 10/10/18 10/11/18 10/12/18 10/13/18 23:59 23:59 23:59 23:59 Intake Total 1684 3004 384 0980 Output Total 950 3200 4500 3600 Balance 734 -1968 -3760 -2410 Weight 407 lb 1.6 oz 410 lb 1.6 oz 396 lb 5 oz 393 lb 1 oz Intake & Output 10/17/18 10/18/18 10/19/18 10/20/18 23:59 23:59 23:59 23:59 Intake Total 150 360 890 350 Output Total 3800 3600 2520 Balance -3650 -3240 -1630 350 Weight 365 lb 362 lb Vital Signs Period Temp Pulse Resp BP Sys/Jones Pulse Ox Last 24 Hr 98.0 F-98.7 F 94-100 16-20 108-137/61-75 96-96 morbidly obese female O2 in place extubated heart S1/S2 lungs grossly clear no wheezing gluteal area examined multiple open site Stage II obese abdomen / midline surgical scar well healed ext no edema / with chronic changes CBC, BMP 10/20/18 07:00 10/20/18 07:00 CBC, BMP 10/19/18 06:00 10/19/18 06:30 CBC, BMP 10/13/18 05:30 10/13/18 05:30 Microbiology 10/19/18 14:30 Stool Clostridium difficile Antigen (TALI) - Final 10/19/18 14:30 Stool Clostridium difficile Toxin Assay - Final 10/09/18 11:35 Blood - Peripheral Venous Blood Culture - Final NO GROWTH AFTER 5 DAYS INCUBATION 10/09/18 11:25 Blood - Peripheral Venous Blood Culture - Final NO GROWTH AFTER 5 DAYS INCUBATION 10/08/18 15:30 Nares - Mrsa Screen - Left MRSA Screen - Final Mr S Aureus 10/07/18 17:00 Sputum - Endotrachea Suction/Ventilator Gram Stain - Final 10/07/18 17:00 Sputum - Endotrachea Suction/Ventilator Sputum Culture - Final NORMAL RESPIRATORY DIOR 10/08/18 15:30 Nares - Mrsa Screen - Right MRSA Screen - Final NO MRSA ISOLATED 10/07/18 08:25 Blood - Peripheral Venous Blood Culture - Final Presumptive Mssa (Pbp2a Neg) 10/07/18 08:25 Blood - Peripheral Venous Blood Culture - Final Staphylococcus Aureus 10/07/18 20:30 Urine For Antigen Detection Legionella Antigen - Final 10/07/18 20:30 Urine For Antigen Detection Streptococcus pneumoniae Antigen (M - Final 10/07/18 08:25 Urine - Urine Clean Catch Urine Culture - Final NO GROWTH OBTAINED Active Medications Acetaminophen (Tylenol -) 325 mg PO Q6H PRN PRN Reason: PAIN Last Admin: 10/19/18 06:25 Dose: 325 mg Acetaminophen (Tylenol -) 650 mg PO Q6H PRN PRN Reason: FEVER Last Admin: 10/19/18 14:36 Dose: 650 mg Albuterol Sulfate (Ventolin 0.083% Nebulizer Soln -) 1 amp NEB Q4H PRN PRN Reason: SHORT OF BREATH/WHEEZING Albuterol/Ipratropium (Duoneb -) 1 amp NEB RQID ON LICENSE OF [facility] Last Admin: 10/20/18 11:48 Dose: 1 amp Amino Acids (Prosource No Carb Liquid Pkt) 30 ml PO BID@0800,1730 ON LICENSE OF [facility] Last Admin: 10/20/18 10:12 Dose: 30 ml Benzocaine (Anbesol -) 1 applic MM Q6H PRN PRN Reason: Canker sores Last Admin: 10/17/18 09:45 Dose: 1 applic Fluconazole (Diflucan -) 100 mg PO DAILY ON [facility] OF [facility] Last Admin: 10/20/18 10:13 Dose: 100 mg Furosemide (Lasix -) 40 mg PO DAILY ON [facility] OF [facility] Last Admin: 10/20/18 10:13 Dose: 40 mg Heparin Sodium (Porcine) (Heparin -) 5,000 unit SQ TID ON LICENSE OF [facility] Last Admin: 10/20/18 14:49 Dose: 5,000 unit Cefazolin Sodium/Dextrose (Ancef 2 Gm Premixed Ivpb -) 2 gm in 50 mls @ 100 mls /hr IVPB Q6H-IV ON [facility] OF [facility] Last Admin: 10/20/18 14:52 Dose: 100 mls/hr Insulin Aspart (Novolog Vial Sliding Scale -) 1 vial SQ ACHS ON LICENSE OF [facility]; Protocol Last Admin: 10/20/18 12:05 Dose: 4 units Insulin Detemir (Levemir Vial) 45 units SQ BID@0700,2200 ON [facility] OF [facility] Last Admin: 10/20/18 06:39 Dose: 45 units Losartan Potassium (Cozaar -) 25 mg PO DAILY ON [facility] OF [facility] Last Admin: 10/20/18 10:13 Dose: 25 mg Nystatin (Mycostatin Cream -) 1 applic TP BID ON [facility] Last Admin: 10/20/18 10:13 Dose: 1 applic Pantoprazole Sodium (Protonix -) 40 mg PO DAILY ON [facility] OF [facility] Last Admin: 10/20/18 10:13 Dose: 40 mg Psyllium Hydrophilic Mucilloid (Metamucil (Sugar-Free) -) 5.85 gm PO BID ON [facility] OF [facility] Last Admin: 10/20/18 10:12 Dose: 5.85 gm Silver Sulfadiazine (Silvadene -) 1 applic TP BID ON [facility] OF [facility] Last Admin: 10/20/18 10:14 Dose: 1 applic 63 yo female w/ pmh of HTN, asthma, diastolic CHF, GERD, prior lower extremity DVT, morbid obesity, DM, anemia, abdominal fibroid, BIBA for evaluation of 1 day history of altered mental status. Patient required intubation in ER due to acute hypoxic / hypercapneic respiratory failure, after intubation became hypotensive requiring fluid resuscitation and pressor for support. Once off pressors, extubated and improved breathing was transferred to medical ryder. # Diarrhea ( 3 episodes today ) r/o C diff -- c/s sent metamucil for BM control --- avoid Lomotil / imodium patient with hx of Bowl obstruction X2 both time required emergency surgery ( was transfered to [facility]) # Sepsis MSSA bacterimeia s/p respiratory failure MRSA colonization continue abx discussed with ID will need 2 additional weeks discussed with patient and family --- PICC line and STR -- [facility] pre[facility] site # acute on chronic resp failure -- hypoxic / hypercapneic / LYLY with hypoventilation/ HFpEF / Asthma patient has had LYLY diagnosis ( study done at [facility]) and fitted with cpap in the past - no follow through upon discharge from [facility] ( no arrangements at time of d/c from [facility] for DME) continue lasix / nebulizer/ discuss with pulmonary need and arrangements for out patient cpap patient will benefit from STR # DM sliding scale ada diet with calorie control # HTN home meds # CAD elevated TNI -- demand ischemia trend #Morbid obesity weight loss of approx 40lbs during hospital stay -- 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 to 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 [facility] will need bariatric bed and cpap machine at time of transfer Problem List - Problems (1) Respiratory failure with hypercapnia Code(s): J96.92 - RESPIRATORY FAILURE, UNSPECIFIED WITH HYPERCAPNIA (2) Sepsis Code(s): A41.9 - SEPSIS, UNSPECIFIED ORGANISM Qualifiers: Sepsis type: sepsis due to unspecified organism Qualified Code(s): A41.9 - Sepsis, unspecified organism (3) JOEY (acute kidney injury) Code(s): N17.9 - ACUTE KIDNEY FAILURE, UNSPECIFIED (4) Respiratory distress Code(s): R06.03 - ACUTE RESPIRATORY DISTRESS (5) Elevated troponin Code(s): R74.8 - ABNORMAL LEVELS OF OTHER SERUM ENZYMES (6) Hypoxia Code(s): R09.02 - HYPOXEMIA (7) Sleep apnea Code(s): G47.30 - SLEEP APNEA, UNSPECIFIED (8) Acute on chronic diastolic CHF (congestive heart failure) Code(s): I50.33 - ACUTE ON CHRONIC DIASTOLIC (CONGESTIVE) HEART FAILURE (9) Congestive heart disease Code(s): I50.9 - HEART FAILURE, UNSPECIFIED (10) Elevated brain natriuretic peptide (BNP) level Code(s): R79.89 - OTHER SPECIFIED ABNORMAL FINDINGS OF BLOOD CHEMISTRY (11) HTN (hypertension) Code(s): I10 - ESSENTIAL (PRIMARY) HYPERTENSION (12) Morbid obesity Code(s): E66.01 - MORBID (SEVERE) OBESITY DUE TO EXCESS CALORIES
[2018-10-20] MEDS: ACETAMINOPHEN 325 MG TABLET (FP) PO PRN (20:41)
[2018-10-20] MEDS ORDERED: traMADol HCL 50 MG TABLET PO ONE (22:45)
[2018-10-21] MEDS: CEFAZOLIN 2 GM/D5W 2 GM/50 ML ML IVPB SCH ×4 (03:07→23:09)
[2018-10-21] MEDS: ACETAMINOPHEN 325 MG TABLET (FP) PO PRN (03:07)
[2018-10-21 06:33] LABS: BASO % 0.8 % (0-2.0); EOS % 5.5 % (0-4.5); HEMATOCRIT 31.4 % (32.4-45.2); HEMOGLOBIN 9.6 GM/dL (10.7-15.3); LYMPH % 12.2 % (8-40); MCH 22.3 pg (25.7-33.7); MCHC 30.5 g/dl (32.0-36.0); MEAN CELL VOLUME 73.1 fl (80-96); MEAN PLT VOLUME 9.1 fl (7.5-11.1); MONO % 7.3 % (3.8-10.2); NEUT % 74.2 % (42.8-82.8); PLATELET COUNT 272 K/MM3 (134-434); RBC 4.29 M/mm3 (3.60-5.2); WHITE BLOOD COUNT 12.6 K/mm3 (4.0-10.0)
[2018-10-21] MEDS: INSULIN SLIDING SCALE (NOVOLOG) 1 VIAL SQ SCH ×4 (06:56→23:09)
[2018-10-21] MEDS: INSULIN (LEVEMIR) 100 UNITS/ML UNITS SQ SCH ×2 (06:56→23:09)
[2018-10-21 06:59] LABS: ANION GAP 8 MMOL/L (8-16); BLOOD UREA NITROGEN 12 mg/dL (7-18); CALCIUM 8.4 mg/dL (8.5-10.1); CHLORIDE 96 mmol/L (98-107); CO2 32 mmol/L (21-32); CREATININE 0.7 mg/dL (0.55-1.3); GLUCOSE,RANDOM 156 mg/dL (74-106); POTASSIUM 3.5 mmol/L (3.5-5.1); SODIUM 137 mmol/L (136-145)
[2018-10-21] MEDS: ALBUTEROL SO4 2.5/IPRATROPIUM 0.5 INH SOL 3 ML VIAL.NEB. NEB SCH ×4 (08:26→21:12)
--- NOTE | 2018-10-21 09:53 | PN ---
Progress Note (short form) - Note Progress Note: Resting in NAD. No acute events overnight Breathing feels OK. Intake & Output 10/18/18 10/19/18 10/20/18 10/21/18 23:59 23:59 23:59 23:59 Intake Total 360 890 450 240 Output Total 3600 2520 1200 300 Balance -3240 -1630 -750 -60 Weight 362 lb Last Vital Signs Temp Pulse Resp BP Pulse Ox 97.5 F L 94 H 20 119/68 96 10/21/18 05:00 10/21/18 05:00 10/21/18 05:00 10/21/18 05:00 10/20/18 22:00 Active Medications Acetaminophen (Tylenol -) 325 mg PO Q6H PRN PRN Reason: PAIN Last Admin: 10/19/18 06:25 Dose: 325 mg Acetaminophen (Tylenol -) 650 mg PO Q6H PRN PRN Reason: FEVER Last Admin: 10/21/18 03:07 Dose: 650 mg Albuterol Sulfate (Ventolin 0.083% Nebulizer Soln -) 1 amp NEB Q4H PRN PRN Reason: SHORT OF BREATH/WHEEZING Albuterol/Ipratropium (Duoneb -) 1 amp NEB RQID [facility] Last Admin: 10/21/18 08:26 Dose: 1 amp Amino Acids (Prosource No Carb Liquid Pkt) 30 ml PO BID@0800,1730 [facility] Last Admin: 10/20/18 17:34 Dose: 30 ml Ascorbic Acid (Vitamin C -) 500 mg PO DAILY [facility] Benzocaine (Anbesol -) 1 applic MM Q6H PRN PRN Reason: Canker sores Last Admin: 10/17/18 09:45 Dose: 1 applic Ferrous Sulfate (Feosol -) 325 mg PO BID [facility] Fluconazole (Diflucan -) 100 mg PO DAILY [facility] Last Admin: 10/20/18 10:13 Dose: 100 mg Folic Acid (Folic Acid -) 1 mg PO DAILY [facility] Furosemide (Lasix -) 40 mg PO DAILY [facility] Last Admin: 10/20/18 10:13 Dose: 40 mg Cefazolin Sodium/Dextrose (Ancef 2 Gm Premixed Ivpb -) 2 gm in 50 mls @ 100 mls /hr IVPB Q6H-IV [facility] Last Admin: 10/21/18 03:07 Dose: 100 mls/hr Insulin Aspart (Novolog Vial Sliding Scale -) 1 vial SQ ACHS [facility]; Protocol Last Admin: 10/21/18 06:56 Dose: 2 units Insulin Detemir (Levemir Vial) 45 units SQ BID@0700,2200 [facility] Last Admin: 10/21/18 06:56 Dose: 45 units Losartan Potassium (Cozaar -) 25 mg PO DAILY [facility] Last Admin: 10/20/18 10:13 Dose: 25 mg Nystatin (Mycostatin Cream -) 1 applic TP BID [facility] Last Admin: 10/20/18 21:39 Dose: 1 applic Pantoprazole Sodium (Protonix -) 40 mg PO DAILY [facility] Last Admin: 10/20/18 10:13 Dose: 40 mg Psyllium Hydrophilic Mucilloid (Metamucil (Sugar-Free) -) 5.85 gm PO BID [facility] Last Admin: 10/20/18 21:40 Dose: 5.85 gm Silver Sulfadiazine (Silvadene -) 1 applic TP BID [facility] Last Admin: 10/20/18 21:39 Dose: 1 applic Constitutional: Yes: NAD Eyes: Yes: WNL HENT: Yes: WNL Neck: Yes: WNL Cardiovascular: Yes: Regular Rate and Rhythm, S1, S2 Respiratory: Yes: Diminished at the bases Gastrointestinal: Yes: Normal Bowel Sounds, Soft Extremities: Yes: WNL Edema: No Labs: Laboratory Results - last 24 hr 10/19/18 10/20/18 10/20/18 06:30 12:02 17:29 WBC RBC Hgb Hct MCV MCH MCHC RDW Plt Count MPV Absolute Neuts (auto) Neutrophils % Lymphocytes % Monocytes % Eosinophils % Basophils % Nucleated RBC % Sodium 140 Potassium 3.9 Chloride 97 L Carbon Dioxide 35 H Anion Gap 8 BUN 11 Creatinine 0.7 Creat Clearance w eGFR > 60 POC Glucometer 244 251 Random Glucose 138 H Calcium 8.8 Triglycerides 140 Cholesterol 140 Total LDL Cholesterol 71 HDL Cholesterol 57 10/20/18 10/21/18 10/21/18 21:38 05:30 05:30 WBC 12.6 H RBC 4.29 Hgb 9.6 L Hct 31.4 L MCV 73.1 L MCH 22.3 L MCHC 30.5 L RDW 22.0 H Plt Count 272 MPV 9.1 Absolute Neuts (auto) 9.4 H Neutrophils % 74.2 Lymphocytes % 12.2 Monocytes % 7.3 Eosinophils % 5.5 H Basophils % 0.8 Nucleated RBC % 0 Sodium 137 Potassium 3.5 Chloride 96 L Carbon Dioxide 32 Anion Gap 8 BUN 12 Creatinine 0.7 Creat Clearance w eGFR > 60 POC Glucometer 225 Random Glucose 156 H Calcium 8.4 L Triglycerides Cholesterol Total LDL Cholesterol HDL Cholesterol 10/21/18 05:49 WBC RBC Hgb Hct MCV MCH MCHC RDW Plt Count MPV Absolute Neuts (auto) Neutrophils % Lymphocytes % Monocytes % Eosinophils % Basophils % Nucleated RBC % Sodium Potassium Chloride Carbon Dioxide Anion Gap BUN Creatinine Creat Clearance w eGFR POC Glucometer 178 Random Glucose Calcium Triglycerides Cholesterol Total LDL Cholesterol HDL Cholesterol Problem List - Problems (1) JOEY (acute kidney injury) Code(s): N17.9 - ACUTE KIDNEY FAILURE, UNSPECIFIED (2) Diabetes Code(s): E11.9 - TYPE 2 DIABETES MELLITUS WITHOUT COMPLICATIONS (3) Hypoxia Code(s): R09.02 - HYPOXEMIA (4) Respiratory distress Code(s): R06.03 - ACUTE RESPIRATORY DISTRESS (5) Sleep apnea Code(s): G47.30 - SLEEP APNEA, UNSPECIFIED (6) Acute on chronic respiratory failure with hypoxia and hypercapnia Code(s): J96.21 - ACUTE AND CHRONIC RESPIRATORY FAILURE WITH HYPOXIA; J96.22 - ACUTE AND CHRONIC RESPIRATORY FAILURE WITH HYPERCAPNIA (7) Diastolic CHF, acute on chronic Code(s): I50.33 - ACUTE ON CHRONIC DIASTOLIC (CONGESTIVE) HEART FAILURE (8) Morbid (severe) obesity due to excess calories Code(s): E66.01 - MORBID (SEVERE) OBESITY DUE TO EXCESS CALORIES (9) Obesity hypoventilation syndrome Code(s): E66.2 - MORBID (SEVERE) OBESITY WITH ALVEOLAR HYPOVENTILATION (10) Sleep apnea Code(s): G47.30 - SLEEP APNEA, UNSPECIFIED Assessment/Plan Acute on Chronic Hypoxic and Hypercapneic Respiratory Failure improving Volume Overload Acute on Chronic Diastolic Heart Failure Acute Asthma Exacerbation Cellulitis MSSA Bacteremia Sepsis Lactic Acidosis +Troponins likely Demand Ischemia Acute Kidney Injury Morbid Obesity Obstructive Sleep Apnea/Obesity Hypoventilation Syndrome HTN DM h/o DVT - ABX per ID - O2 as needed - lasix - monitor urine output, creatinine - inhaled bronchodilators standing and PRN - rehab/PT - DVT/GI prophylaxis Dr Caldwell
[2018-10-21] MEDS: PSYLLIUM 5.85 GM PACKET PO SCH ×2 (10:29→23:08)
[2018-10-21] MEDS: FERROUS SO4 325 MG TABLET (FP) PO SCH ×2 (10:29→23:08)
[2018-10-21] MEDS: FOLIC ACID 1 MG TABLET (FP) PO SCH (10:29)
[2018-10-21] MEDS: ASCORBIC ACID 500 MG TABLET (FP) PO SCH (10:29)
[2018-10-21] MEDS: PANTOPRAZOLE 40 MG TABLET (FP) PO SCH (10:29)
[2018-10-21] MEDS: AMINO ACIDS/PROTEIN HYDROLYS 30 ML LIQUID.PKT PO SCH ×2 (10:30→18:13)
[2018-10-21] MEDS: SILVER SULFADIAZINE 1% TOP CREAM 50 GM JAR TP SCH ×2 (10:42→23:05)
[2018-10-21] MEDS: NYSTATIN 100,000 UNIT/GM TOPICAL CREAM 15 GM TUBE TP SCH ×2 (10:42→23:06)
[2018-10-21] MEDS: FUROSEMIDE 40 MG TABLET (FP) PO SCH (11:58)
[2018-10-21] MEDS: LOSARTAN POTASSIUM 25 MG TABLET PO SCH (12:01)
--- NOTE | 2018-10-21 17:20 | PN ---
Progress Note (short form) - Note Progress Note: patient in medical ryder examined in room will need ABX for 2 more weeks arrange for STR no abdominal pain / no blood in stool Intake & Output 10/10/18 10/11/18 10/12/18 10/13/18 23:59 23:59 23:59 23:59 Intake Total 1684 0585 771 0913 Output Total 950 3200 4500 3600 Balance 709 -1968 -5960 -2410 Weight 407 lb 1.6 oz 410 lb 1.6 oz 396 lb 5 oz 393 lb 1 oz Intake & Output 10/18/18 10/19/18 10/20/18 10/21/18 23:59 23:59 23:59 23:59 Intake Total 360 890 450 540 Output Total 3600 2520 1200 1500 Balance -3240 -1630 -750 -960 Weight 362 lb Vital Signs Period Temp Pulse Resp BP Sys/Jones Pulse Ox Last 24 Hr 97.5 F-98.3 F 94-100 20-20 119-137/61-68 96 morbidly obese female O2 in place extubated heart S1/S2 lungs grossly clear no wheezing gluteal area examined multiple open site Stage II obese abdomen / midline surgical scar well healed ext no edema / with chronic changes CBC, BMP 10/21/18 05:30 10/21/18 05:30 CBC, BMP 10/20/18 07:00 10/20/18 07:00 CBC, BMP 10/19/18 06:00 10/19/18 06:30 Microbiology 10/19/18 14:30 Stool Clostridium difficile Antigen (TALI) - Final 10/19/18 14:30 Stool Clostridium difficile Toxin Assay - Final 10/09/18 11:35 Blood - Peripheral Venous Blood Culture - Final NO GROWTH AFTER 5 DAYS INCUBATION 10/09/18 11:25 Blood - Peripheral Venous Blood Culture - Final NO GROWTH AFTER 5 DAYS INCUBATION 10/08/18 15:30 Nares - Mrsa Screen - Left MRSA Screen - Final Mr S Aureus 10/07/18 17:00 Sputum - Endotrachea Suction/Ventilator Gram Stain - Final 10/07/18 17:00 Sputum - Endotrachea Suction/Ventilator Sputum Culture - Final NORMAL RESPIRATORY DIOR 10/08/18 15:30 Nares - Mrsa Screen - Right MRSA Screen - Final NO MRSA ISOLATED 10/07/18 08:25 Blood - Peripheral Venous Blood Culture - Final Presumptive Mssa (Pbp2a Neg) 10/07/18 08:25 Blood - Peripheral Venous Blood Culture - Final Staphylococcus Aureus 10/07/18 20:30 Urine For Antigen Detection Legionella Antigen - Final 10/07/18 20:30 Urine For Antigen Detection Streptococcus pneumoniae Antigen (M - Final 10/07/18 08:25 Urine - Urine Clean Catch Urine Culture - Final NO GROWTH OBTAINED Active Medications Acetaminophen (Tylenol -) 325 mg PO Q6H PRN PRN Reason: PAIN Last Admin: 10/19/18 06:25 Dose: 325 mg Acetaminophen (Tylenol -) 650 mg PO Q6H PRN PRN Reason: FEVER Last Admin: 10/21/18 03:07 Dose: 650 mg Albuterol Sulfate (Ventolin 0.083% Nebulizer Soln -) 1 amp NEB Q4H PRN PRN Reason: SHORT OF BREATH/WHEEZING Albuterol/Ipratropium (Duoneb -) 1 amp NEB RQID [facility] Last Admin: 10/21/18 15:56 Dose: 1 amp Amino Acids (Prosource No Carb Liquid Pkt) 30 ml PO BID@0800,1730 [facility] Last Admin: 10/21/18 10:30 Dose: 30 ml Ascorbic Acid (Vitamin C -) 500 mg PO DAILY [facility] Last Admin: 10/21/18 10:29 Dose: 500 mg Benzocaine (Anbesol -) 1 applic MM Q6H PRN PRN Reason: Canker sores Last Admin: 10/17/18 09:45 Dose: 1 applic Ferrous Sulfate (Feosol -) 325 mg PO BID [facility] Last Admin: 10/21/18 10:29 Dose: 325 mg Folic Acid (Folic Acid -) 1 mg PO DAILY [facility] Last Admin: 10/21/18 10:29 Dose: 1 mg Cefazolin Sodium/Dextrose (Ancef 2 Gm Premixed Ivpb -) 2 gm in 50 mls @ 100 mls /hr IVPB Q6H-IV [facility] Last Admin: 10/21/18 16:09 Dose: 100 mls/hr Insulin Aspart (Novolog Vial Sliding Scale -) 1 vial SQ ACHS [facility]; Protocol Last Admin: 10/21/18 16:10 Dose: 2 units Insulin Detemir (Levemir Vial) 45 units SQ BID@0700,2200 [facility] Last Admin: 10/21/18 06:56 Dose: 45 units Lidocaine HCl (Xylocaine 5% Top. Ointment) 1 applic TP BID [facility] Losartan Potassium (Cozaar -) 25 mg PO DAILY [facility] Last Admin: 10/21/18 12:01 Dose: 25 mg Nystatin (Mycostatin Cream -) 1 applic TP BID [facility] Last Admin: 10/21/18 10:42 Dose: 1 applic Pantoprazole Sodium (Protonix -) 40 mg PO DAILY [facility] Last Admin: 10/21/18 10:29 Dose: 40 mg Psyllium Hydrophilic Mucilloid (Metamucil (Sugar-Free) -) 5.85 gm PO BID [facility] Last Admin: 10/21/18 10:29 Dose: 5.85 gm Silver Sulfadiazine (Silvadene -) 1 applic TP BID [facility] Last Admin: 10/21/18 10:42 Dose: 1 applic 63 yo female w/ pmh of HTN, asthma, diastolic CHF, GERD, prior lower extremity DVT, morbid obesity, DM, anemia, abdominal fibroid, BIBA for evaluation of 1 day history of altered mental status. Patient required intubation in ER due to acute hypoxic / hypercapneic respiratory failure, after intubation became hypotensive requiring fluid resuscitation and pressor for support. Once off pressors, extubated and improved breathing was transferred to medical ryder. # Diarrhea ( subsided - + BM today) r/o C diff -- c/s sent metamucil for BM control --- avoid Lomotil / imodium patient with hx of Bowl obstruction X2 both time required emergency surgery ( was transfered to [facility]) # Sepsis MSSA bacterimeia s/p respiratory failure MRSA colonization continue abx discussed with ID will need 2 additional weeks discussed with patient and family --- [facility] # acute on chronic resp failure -- hypoxic / hypercapneic / LYLY with hypoventilation/ HFpEF / Asthma patient has had LYLY diagnosis ( study done at [facility]) and fitted with cpap in the past - no follow through upon discharge from [facility] ( no arrangements at time of d/c from [facility] for DME) continue lasix / nebulizer/ discuss with pulmonary need and arrangements for out patient cpap patient will benefit from STR # DM sliding scale ada diet with calorie control # HTN home meds # CAD elevated TNI -- demand ischemia trend #Morbid obesity weight loss of approx 40lbs during hospital stay -- need to continue weight loss jail -- discussed at length with patient Patient and family agreeable to [facility] for ABX tx and STR will need bariatric bed and cpap machine at time of transfer Problem List - Problems (1) Respiratory failure with hypercapnia Code(s): J96.92 - RESPIRATORY FAILURE, UNSPECIFIED WITH HYPERCAPNIA (2) Sepsis Code(s): A41.9 - SEPSIS, UNSPECIFIED ORGANISM Qualifiers: Sepsis type: sepsis due to unspecified organism Qualified Code(s): A41.9 - Sepsis, unspecified organism (3) JOEY (acute kidney injury) Code(s): N17.9 - ACUTE KIDNEY FAILURE, UNSPECIFIED (4) Respiratory distress Code(s): R06.03 - ACUTE RESPIRATORY DISTRESS (5) Elevated troponin Code(s): R74.8 - ABNORMAL LEVELS OF OTHER SERUM ENZYMES (6) Hypoxia Code(s): R09.02 - HYPOXEMIA (7) Sleep apnea Code(s): G47.30 - SLEEP APNEA, UNSPECIFIED (8) Acute on chronic diastolic CHF (congestive heart failure) Code(s): I50.33 - ACUTE ON CHRONIC DIASTOLIC (CONGESTIVE) HEART FAILURE (9) Congestive heart disease Code(s): I50.9 - HEART FAILURE, UNSPECIFIED (10) Elevated brain natriuretic peptide (BNP) level Code(s): R79.89 - OTHER SPECIFIED ABNORMAL FINDINGS OF BLOOD CHEMISTRY (11) HTN (hypertension) Code(s): I10 - ESSENTIAL (PRIMARY) HYPERTENSION (12) Morbid obesity Code(s): E66.01 - MORBID (SEVERE) OBESITY DUE TO EXCESS CALORIES
[2018-10-21] MEDS ORDERED: PT OWN MED DRAWER 7, Y5N ONE (21:48)
[2018-10-21] MEDS: LIDOCAINE HCL 5% TOP OINTMENT 50 GM TUBE TP SCH (22:53)
[2018-10-22] MEDS: CEFAZOLIN 2 GM/D5W 2 GM/50 ML ML IVPB SCH ×3 (03:33→15:32)
[2018-10-22] MEDS: INSULIN SLIDING SCALE (NOVOLOG) 1 VIAL SQ SCH ×3 (06:59→17:00)
[2018-10-22] MEDS: INSULIN (LEVEMIR) 100 UNITS/ML UNITS SQ SCH (06:59)
[2018-10-22] MEDS: ALBUTEROL SO4 2.5/IPRATROPIUM 0.5 INH SOL 3 ML VIAL.NEB. NEB SCH (07:35)
--- NOTE | 2018-10-22 07:46 | DS ---
Physical Examination Vital Signs: Vital Signs Temperature 99.1 F 10/22/18 05:39 Pulse Rate 98 H 10/22/18 06:31 Respiratory Rate 20 10/22/18 06:31 Blood Pressure 111/65 10/22/18 06:31 O2 Sat by Pulse Oximetry (%) 96 10/21/18 20:42 Findings/Remarks: 63 yo female w/ pmh of HTN, asthma, diastolic CHF, GERD, prior lower extremity DVT, morbid obesity, DM, anemia, abdominal fibroid, BIBA for evaluation of 1 day history of altered mental status. Patient required intubation in ER due to acute hypoxic / hypercapneic respiratory failure, after intubation became hypotensive requiring fluid resuscitation and pressor for support. Once off pressors, extubated and improved breathing was transferred to medical ryder. Patient on medical ryder continued medicalmanagement and will require 2 additional weeks of abx tx. Arrangements made for transfer to [facility] for continued tx . #Morbid obesity weight loss of approx 40lbs during hospital stay -- need to continue weight loss retirement -- discussed at length with patient # Diarrhea ( subsided ) metamucil for BM control --- avoid Lomotil / imodium patient with hx of Bowl obstruction X2 both time required emergency surgery ( was transfered to [facility]) # Sepsis MSSA bacterimeia s/p respiratory failure MRSA colonization continue abx discussed with ID will need 2 additional weeks PICC line 10/21/18 and STR -made. # s/p acute on chronic resp failure -- hypoxic / hypercapneic / LYLY with hypoventilation/ HFpEF / Asthma patient has had LYLY diagnosis ( study done at [facility]) and fitted with cpap in the past - no follow through upon discharge from [facility] ( no arrangements at time of d/c from [facility] for DME) continue lasix / nebulizer/ discuss with pulmonary need and arrangements for out patient cpap patient will benefit from STR # DM sliding scale ada diet with calorie control # HTN home meds # CAD elevated TNI -- demand ischemia no acute cardiac event #anemia 2/2 to fibroids - hx of vaginal bleeding has been followed by [facility] with recommendations for weightloss prior to surgical intervention. denies recent vaginal bleeding - but states pelvic pain due to extensive fibroids continue Fe/ folic acid / vit c/ MVI as out patient Patient and family agreeable to [facility] for ABX tx and STR will need bariatric bed and cpap machine at time of transfer Constitutional: Yes: Well Nourished, No Distress, Obese Eyes: Yes: WNL HENT: Yes: Atraumatic, Normocephalic Neck: Yes: Supple, Trachea Midline Cardiovascular: Yes: Regular Rate and Rhythm Respiratory: Yes: WNL, Regular, CTA Bilaterally, Accessory Muscle Use, Cough, Intubated, Mechanically Ventilated, On BiPap, On Nasal O2, Orthopnea, Poor Air Entry, Rales, Rhonchi, SOB, SOB on Exertion, Tachypnea, Other. No: On Venti- Mask, Stridor, Wheezes Gastrointestinal: Yes: Normal Bowel Sounds, Abdomen, Obese. No: Tenderness, Rebound ...Rectal Exam: Yes: WNL Renal/: Yes: WNL Breast(s): Yes: WNL Musculoskeletal: Yes: Back Pain, Other (unable to ambulate / chronic changes LE ) Edema: No Peripheral Pulses WNL: Yes Integumentary: Yes: Erythema, Pressure Ulcer, Rash (gluteal /sacral / perineal area), Venous Stasis Changes Wound/Incision: Yes: Excoriated (groin / gluteals) Neurological: Yes: Alert, Oriented, Pre-Existing Deficit Psychiatric: Yes: Alert, Oriented Labs: CBC, BMP 10/21/18 05:30 10/21/18 05:30 Discharge Summary Reason For Visit: RESP FAIL W HYPERCAPNIA,HYPOXIA,SEPSIS Current Active Problems JOEY (acute kidney injury) (Acute) Acute on chronic respiratory failure with hypoxia and hypercapnia (Acute) Diabetes (Acute) Diastolic CHF, acute on chronic (Acute) Elevated troponin (Acute) Lambert cardiac risk >20% in next 10 years (Acute) Hypomagnesemia (Acute) Hypoxia (Acute) Morbid (severe) obesity due to excess calories (Acute) Obesity hypoventilation syndrome (Acute) Respiratory distress (Acute) Sepsis (Acute) Sleep apnea (Acute) Sleep apnea (Acute) Condition: Improved - Instructions Referrals: Tyler Jones [Primary Care Provider] - Disposition: [facility] - Home Medications Comprehensive Discharge Medication List: Ambulatory Orders Acetaminophen [Tylenol] 650 mg PO BID 02/22/16 Albuterol 2.5/Ipratropium 0.5 [Duoneb -] 1 neb NEB Q6H 02/22/16 Fluticasone/Salmeterol [Advair 250-50 Diskus] 1 each IH BID 02/22/16 Gabapentin [Neurontin] 300 mg PO Q8H 02/22/16 Alcohol Antiseptic Pads [Alcohol Prep Pads] 10/07/18 Calcium Carbonate [Calcium] 500 mg PO BID 10/07/18 Insulin Aspart [Novolog] 10 unit SQ TID 10/07/18 Insulin Aspart [Novolog] 100 unit SQ TID 10/07/18 Losartan Potassium 25 mg PO DAILY 10/07/18 Mineral Oil/Hydrophil Petrolat [Aquaphor Healing Ointment] 10/07/18 Ranitidine HCl 150 mg PO BID 10/07/18 Sennosides [Senna] 8.6 mg PO BID 10/07/18
--- NOTE | 2018-10-22 08:55 | PN ---
Progress Note (short form) - Note Progress Note: PULMONARY Breathing continues to improve. Saturating well on nasal cannula. Eating breakfast Appears stable tmax 99.0 Gen: anxious but NAD Heart: RRR Lung: distant breath sounds Abd: soft, nontender Ext: lymph edema/right upper ext picc Active Medications noted meds/labs/notes/images reviewed A/P Acute on Chronic Hypoxic and Hypercapneic Respiratory Failure Volume Overload Acute on Chronic Diastolic Heart Failure Acute Asthma Exacerbation Cellulitis MSSA Bacteremia Sepsis Lactic Acidosis +Troponins likely Demand Ischemia Acute Kidney Injury Morbid Obesity Obstructive Sleep Apnea/Obesity Hypoventilation Syndrome HTN DM h/o DVT - continue lasix - monitor urine output, creatinine - inhaled bronchodilators standing and PRN - O2 to keep SpO2 >90% - antibiotics per ID - rehab/PT - DVT/GI prophylaxis Cindy CANO MD - Cindy CANO MD
[2018-10-22] MEDS: PSYLLIUM 5.85 GM PACKET PO SCH (10:50)
[2018-10-22] MEDS: AMINO ACIDS/PROTEIN HYDROLYS 30 ML LIQUID.PKT PO SCH ×2 (10:50→18:01)
[2018-10-22] MEDS: FERROUS SO4 325 MG TABLET (FP) PO SCH (10:50)
[2018-10-22] MEDS: ASCORBIC ACID 500 MG TABLET (FP) PO SCH (10:50)
[2018-10-22] MEDS: FOLIC ACID 1 MG TABLET (FP) PO SCH (10:50)
[2018-10-22] MEDS: PANTOPRAZOLE 40 MG TABLET (FP) PO SCH (10:50)
[2018-10-22] MEDS: LOSARTAN POTASSIUM 25 MG TABLET PO SCH (10:50)
[2018-10-22] MEDS: NYSTATIN 100,000 UNIT/GM TOPICAL CREAM 15 GM TUBE TP SCH (10:51)
[2018-10-22] MEDS: LIDOCAINE HCL 5% TOP OINTMENT 50 GM TUBE TP SCH (10:51)
[2018-10-22] MEDS: SILVER SULFADIAZINE 1% TOP CREAM 50 GM JAR TP SCH (10:51)
[2018-10-22 14:49] VITALS: BP 130/65; PULSE 98; TEMP 98.3
== END 2018-10-22 19:22 | DRG 870 ==
LOC: JER 07:18 → JERBED 10:54 → JICU 15:59 → J4S 10-14 03:56
PROVIDERS: ADMIT Family Medicine; ATTEND Family Medicine
PROC: 02HV33Z Insertion of Infusion Device into Superior Vena Cava, Percutaneous Approach (ICD-10-PCS; principal; 2018-10-07)
PROC: 5A1955Z Respiratory Ventilation, Greater than 96 Consecutive Hours (ICD-10-PCS; 2018-10-07)
PROC: B518ZZA Fluoroscopy of Superior Vena Cava, Guidance (ICD-10-PCS; 2018-10-21)
DX: A41.01 Sepsis due to Methicillin susceptible Staphylococcus aureus (principal); G93.41 Metabolic encephalopathy; I50.33 Acute on chronic diastolic (congestive) heart failure; R65.21 Severe sepsis with septic shock; J96.01 Acute respiratory failure with hypoxia; J96.02 Acute respiratory failure with hypercapnia; J18.9 Pneumonia, unspecified organism; E87.2 Acidosis; N17.9 Acute kidney failure, unspecified; B49 Unspecified mycosis; Z68.44 Body mass index [BMI] 60.0-69.9, adult; I24.8 Other forms of acute ischemic heart disease; J45.901 Unspecified asthma with (acute) exacerbation; L03.818 Cellulitis of other sites; L89.322 Pressure ulcer of left buttock, stage 2; L89.312 Pressure ulcer of right buttock, stage 2; R50.9 Fever, unspecified; K21.9 Gastro-esophageal reflux disease without esophagitis; D64.9 Anemia, unspecified; K43.9 Ventral hernia without obstruction or gangrene; I11.0 Hypertensive heart disease with heart failure; E11.9 Type 2 diabetes mellitus without complications; R00.1 Bradycardia, unspecified; G47.30 Sleep apnea, unspecified; D25.9 Leiomyoma of uterus, unspecified; R74.8 Abnormal levels of other serum enzymes; F32.9 Major depressive disorder, single episode, unspecified; E66.01 Morbid (severe) obesity due to excess calories; I95.9 Hypotension, unspecified; K59.00 Constipation, unspecified; B36.9 Superficial mycosis, unspecified; E87.5 Hyperkalemia; I45.10 Unspecified right bundle-branch block; E83.42 Hypomagnesemia; R19.7 Diarrhea, unspecified; Z88.1 Allergy status to other antibiotic agents; Z78.0 Asymptomatic menopausal state; Z86.718 Personal history of other venous thrombosis and embolism; Z87.891 Personal history of nicotine dependence
CPT/HCPCS: 36415; 36569; 36600; 71045-TC-FY; 76700-TC; 77001-TC-FY; 80048; 80053; 80061; 80307; 81003; 81015; 82375; 82436; 82550; 82553; 82570; 82607; 82746; 82803; 82962; 83036; 83050; 83605; 83721; 83735; 83930; 83935; 84100; 84133; 84300; 84443; 84484; 85025; 85027; 85610; 85730; 87040; 87070; 87081; 87086; 87186; 87205; 87324; 87449; 87804; 87899; 93005; 93010; 93306-TC; 93970-TC; 94002; 94640; 97161-GP; 99283-25; C1751; G0480; J0131; J1644; J7030

== ENCOUNTER 2021-03-17 10:44 | Inpatient (IN) | payer OTHER ==
[2021-03-17 11:08] VITALS: BMI 68.6
[2021-03-17] MEDS ORDERED: SODIUM CHLORIDE IV ONE (11:08)
[2021-03-17] MEDS ORDERED: ACETAMINOPHEN 1000 MG/100 ML VIAL (NON FORMULARY) IVPB ONE (12:25)
[2021-03-17] MEDS ORDERED: CEFEPIME HCL/D5W 1 GM/50 ML BAG IVPB ONE (12:26)
[2021-03-17] MEDS ORDERED: VANCOMYCIN HCL 1,500 MG in DEXTROSE 5%-WATER - 500 ML IVPB ONE (12:27)
[2021-03-17] MEDS ORDERED: CEFEPIME 1 GM/100 ML BAG IVPB ONE (12:32)
[2021-03-17] MEDS ORDERED: ACETAMINOPHEN INJECTION 100 ML IVPB ONE (12:32)
[2021-03-17 12:39] LABS: BASO % 0.5 % (0-2.0); EOS % 2.9 % (0-4.5); HEMATOCRIT 27.5 % (32.4-45.2); HEMOGLOBIN 7.8 GM/dL (10.7-15.3); LYMPH % 7.3 % (8-40); MCHC 28.2 g/dl (32.0-36.0); MEAN CELL VOLUME 63.2 fl (80-96); MEAN PLT VOLUME 8.1 fl (7.5-11.1); MONO % 5.3 % (3.8-10.2); PLATELET COUNT 404 10^3/uL (134-434); RBC 4.35 M/mm3 (3.60-5.2); RDW 22.8 % (11.6-15.6)
[2021-03-17 12:44] LABS: INR 1.75 (0.83-1.09); MCH 17.8 pg (25.7-33.7); PROTHROMBIN TIME (PATIENT) 20.8 SEC (9.7-13.0)
[2021-03-17 12:46] LABS: ACTIVATED PTT 27.9 SECONDS (25.2-36.5)
[2021-03-17] MEDS ORDERED: SODIUM CHLORIDE 0.9% 500 ML INFUS.BAG IV ONE (12:46)
[2021-03-17 12:48] LABS: VENOUS BASE EXCESS 8.2 mmol/L (-2-2); VENOUS O2 SATURATION 76.4 % (70-80); VENOUS PCO2 62.6 mmHg (38-52); VENOUS PH 7.365 (7.310-7.410)
[2021-03-17 12:57] LABS: CHLORIDE 97 mmol/L (98-107); SODIUM 137 mmol/L (136-145)
[2021-03-17 12:59] LABS: ALBUMIN 1.9 g/dl (3.4-5.0); ANION GAP 7 MMOL/L (8-16); BLOOD UREA NITROGEN 18.9 mg/dL (7-18); CALCIUM 8.2 mg/dL (8.5-10.1); CO2 33 mmol/L (21-32); GLUCOSE,RANDOM 179 mg/dL (74-106)
[2021-03-17 13:02] LABS: SGOT/AST 16 U/L (15-37); SGPT/ALT 11 U/L (13-61)
[2021-03-17 13:04] LABS: BILIRUBIN,TOTAL 0.5 mg/dL (0.2-1); TOT PROT 6.6 g/dl (6.4-8.2)
[2021-03-17 13:05] LABS: ALK PHOS 86 U/L (45-117)
[2021-03-17 13:22] LABS: LACTIC ACID 2.5 mmol/L (0.4-2.0)
[2021-03-17 13:58] LABS: ANISOCYTOSIS 1+; MACROCYTOSIS 0; PLATELET ESTIMATE NORMAL
[2021-03-17 14:00] LABS: N-TERMINAL BNP 514.8 pg/ml (5-125)
[2021-03-17] MEDS ORDERED: LACTATED RINGERS SOLUTION 1000 ML INFUS.BAG IV ONE (14:08)
[2021-03-17] MEDS ORDERED: morphine SULFATE 4 MG/ML VIAL ONE (14:18)
[2021-03-17] MEDS ORDERED: morphine CARPU-JECT 4 MG/1 ML DISP.SYRIN IVPUSH ONE (14:35)
[2021-03-17 15:51] LABS: PH,URINE 5.5 (5.0-8.0); URINE APPEARANCE Clear; URINE BILIRUBIN 1+ (NEGATIVE); URINE COLOR Yellow; URINE GLUCOSE (UA) Negative (NEGATIVE); URINE KETONE Negative (NEGATIVE); URINE LEUK ESTERASE 3+ (NEGATIVE); URINE NITRITE Negative (NEGATIVE); URINE PROTEIN 2+ (NEGATIVE); URINE UROBILINOGEN 0.2 mg/dL (0.2-1.0)
[2021-03-17 15:55] LABS: EPI CELLS 3.4 /uL (0-25.1); HYALINE CASTS 2.36 /uL (0-3.1); URINE BACTERIA 1268.5 /uL (0-1359); URINE RBC 1369.3 /uL (0-23.9); URINE WBC 859.8 /uL (0-25.8)
[2021-03-17] MEDS ORDERED: SODIUM CHLORIDE 1,000 ML IV STA (17:55)
[2021-03-17] MEDS: INSULIN SLIDING SCALE (NOVOLOG) 1 VIAL SQ SCH (18:25)
[2021-03-17] MEDS: ACETAMINOPHEN 325 MG TABLET (FP) PO PRN (19:51)
[2021-03-17] MEDS ORDERED: GABAPENTIN 300 MG CAPSULE PO ONE (20:40)
[2021-03-17] MEDS: HEPARIN NA (PORCINE) 5,000 UNITS/ML 1ML VIAL SQ SCH (21:31)
[2021-03-17] MEDS: NYSTATIN 100,000 UNIT/GM TOPICAL CREAM 15 GM TUBE TP SCH (21:32)
[2021-03-18] MEDS: INSULIN SLIDING SCALE (NOVOLOG) 1 VIAL SQ SCH ×3 (06:35→17:50)
[2021-03-18] MEDS: INSULIN (LEVEMIR) 100 UNITS/ML UNITS SQ SCH ×2 (06:41→22:24)
[2021-03-18] MEDS: GABAPENTIN 300 MG CAPSULE PO SCH ×3 (06:43→21:21)
[2021-03-18] MEDS: ACETAMINOPHEN 325 MG TABLET (FP) PO PRN ×3 (06:43→18:38)
[2021-03-18] MEDS: ALBUTEROL SO4 2.5/IPRATROPIUM 0.5 INH SOL 3 ML VIAL.NEB. NEB SCH ×4 (07:40→20:12)
[2021-03-18 07:48] LABS: BASO % 0.6 % (0-2.0); HEMATOCRIT 28.6 % (32.4-45.2); LYMPH % 7.2 % (8-40); MCHC 28.1 g/dl (32.0-36.0); MEAN PLT VOLUME 8.5 fl (7.5-11.1); MONO % 4.9 % (3.8-10.2); NEUT % 81.3 % (42.8-82.8); PLATELET COUNT 344 10^3/uL (134-434); RBC 4.33 M/mm3 (3.60-5.2); RDW 24.7 % (11.6-15.6); WHITE BLOOD COUNT 20.5 K/mm3 (4.0-10.0)
[2021-03-18 07:57] LABS: MCH 18.5 pg (25.7-33.7)
[2021-03-18 08:00] LABS: ALBUMIN 1.9 g/dl (3.4-5.0); BLOOD UREA NITROGEN 24.1 mg/dL (7-18); CALCIUM 8.1 mg/dL (8.5-10.1)
[2021-03-18 08:01] LABS: BILIRUBIN,TOTAL 0.5 mg/dL (0.2-1); TOT PROT 6.3 g/dl (6.4-8.2)
[2021-03-18 08:03] LABS: CREATININE 1.7 mg/dL (0.55-1.3)
[2021-03-18] MEDS ORDERED: PT OWN MED DRAWER 7, Y5N ONE ×2 (08:39→18:58)
[2021-03-18 09:00] LABS: ANISOCYTOSIS 2+; MACROCYTOSIS 0; PLATELET ESTIMATE NORMAL
[2021-03-18] MEDS: FERROUS SO4 325 MG TABLET (FP) PO SCH ×2 (10:40→17:03)
[2021-03-18] MEDS: ASCORBIC ACID 500 MG TABLET (FP) PO SCH ×2 (10:40→10:41)
[2021-03-18] MEDS: PANTOPRAZOLE 40 MG TABLET PO SCH (10:41)
[2021-03-18] MEDS: FOLIC ACID 1 MG TABLET (FP) PO SCH (10:42)
[2021-03-18] MEDS: CALCIUM (OYSTER SHELL) 500 MG TABLET (FP) PO SCH ×2 (10:42→21:21)
[2021-03-18] MEDS: predniSONE 5 MG TABLET (UD) PO SCH (10:42)
[2021-03-18] MEDS: HEPARIN NA (PORCINE) 5,000 UNITS/ML 1ML VIAL SQ SCH ×2 (10:43→21:20)
[2021-03-18] MEDS: NYSTATIN 100,000 UNIT/GM TOPICAL CREAM 15 GM TUBE TP SCH ×2 (10:59→21:20)
[2021-03-18] MEDS ORDERED: VANCOMYCIN 1 GRAM (PRE-DOCKED) 1,000 MG/250 ML BAG IVPB ONE (11:45)
[2021-03-18] MEDS: CEFTRIAXONE 2 GM in DEXTROSE 5%-WATER 2 GM/100 ML BAG IVPB SCH (12:30)
[2021-03-18] MEDS ORDERED: DEXTROSE 5%-WATER 100 ML IVPB ONE (12:34)
[2021-03-18 19:48] LABS: EPI CELLS 29 /uL (0-25.1); HYALINE CASTS 9 /uL (0-3.1); URINE APPEARANCE CLOUDY; URINE BACTERIA 93 /uL (0-1359); URINE BILIRUBIN NEGATIVE (NEGATIVE); URINE COLOR YELLOW; URINE GLUCOSE (UA) NEGATIVE (NEGATIVE); URINE KETONE NEGATIVE (NEGATIVE); URINE LEUK ESTERASE 2+ (NEGATIVE); URINE NITRITE NEGATIVE (NEGATIVE); URINE PROTEIN 1+ (NEGATIVE); URINE RBC 23 /uL (0-23.9); URINE UROBILINOGEN 0.2 mg/dL (0.2-1.0); URINE WBC 185 /uL (0-25.8)
[2021-03-18 21:53] LABS: YEAST NEGATIVE (NEGATIVE)
[2021-03-19] MEDS: INSULIN SLIDING SCALE (NOVOLOG) 1 VIAL SQ SCH ×3 (06:06→17:21)
[2021-03-19] MEDS: INSULIN (LEVEMIR) 100 UNITS/ML UNITS SQ SCH ×2 (06:12→22:34)
[2021-03-19] MEDS: GABAPENTIN 300 MG CAPSULE PO SCH ×3 (06:12→22:35)
[2021-03-19 07:13] LABS: CALCIUM 8.4 mg/dL (8.5-10.1)
[2021-03-19 07:14] LABS: BLOOD UREA NITROGEN 18.8 mg/dL (7-18)
[2021-03-19 07:16] LABS: ALBUMIN 1.8 g/dl (3.4-5.0)
[2021-03-19 07:17] LABS: CREATININE 0.9 mg/dL (0.55-1.3)
[2021-03-19 07:18] LABS: BILIRUBIN,TOTAL 0.3 mg/dL (0.2-1); TOT PROT 6.2 g/dl (6.4-8.2)
[2021-03-19] MEDS: ALBUTEROL SO4 2.5/IPRATROPIUM 0.5 INH SOL 3 ML VIAL.NEB. NEB SCH ×4 (08:10→22:20)
[2021-03-19] MEDS ORDERED: LIDOCAINE HCL 5% TOP OINTMENT 50 GM TUBE TP ONE (08:11)
[2021-03-19] MEDS: FERROUS SO4 325 MG TABLET (FP) PO SCH ×2 (08:41→17:22)
[2021-03-19] MEDS ORDERED: PT OWN MED DRAWER 7, Y5N ONE ×4 (08:45→22:33)
[2021-03-19] MEDS ORDERED: DEXTROSE 5%-WATER 100 ML IVPB ONE (08:45)
[2021-03-19] MEDS: predniSONE 5 MG TABLET (UD) PO SCH (09:44)
[2021-03-19] MEDS: FOLIC ACID 1 MG TABLET (FP) PO SCH (09:46)
[2021-03-19] MEDS: HEPARIN NA (PORCINE) 5,000 UNITS/ML 1ML VIAL SQ SCH ×2 (09:46→22:34)
[2021-03-19] MEDS: CALCIUM (OYSTER SHELL) 500 MG TABLET (FP) PO SCH ×2 (09:46→22:35)
[2021-03-19] MEDS: ASCORBIC ACID 500 MG TABLET (FP) PO SCH (09:47)
[2021-03-19] MEDS: PANTOPRAZOLE 40 MG TABLET PO SCH (09:47)
[2021-03-19] MEDS: CEFTRIAXONE 2 GM in DEXTROSE 5%-WATER 2 GM/100 ML BAG IVPB SCH (09:50)
[2021-03-19] MEDS ORDERED: MORPHINE SULFATE 2 MG/ML VIAL ONE (12:09)
[2021-03-19] MEDS: VANCOMYCIN/WATER BAGS 1,250 MG/250 ML BAG IVPB SCH ×2 (13:26→22:53)
[2021-03-19] MEDS: NYSTATIN 100,000 UNIT/GM TOPICAL CREAM 15 GM TUBE TP SCH ×2 (13:26→22:35)
[2021-03-19] MEDS ORDERED: SODIUM CHLORIDE 1,000 ML IV STA (17:56)
[2021-03-20] MEDS: GABAPENTIN 300 MG CAPSULE PO SCH ×3 (06:29→22:41)
[2021-03-20] MEDS: INSULIN SLIDING SCALE (NOVOLOG) 1 VIAL SQ SCH ×3 (06:33→16:40)
[2021-03-20] MEDS: INSULIN (LEVEMIR) 100 UNITS/ML UNITS SQ SCH ×2 (06:33→22:41)
[2021-03-20 07:35] LABS: BASO % 0.4 % (0-2.0); EOS % 8.8 % (0-4.5); HEMATOCRIT 26.9 % (32.4-45.2); HEMOGLOBIN 7.7 GM/dL (10.7-15.3); LYMPH % 9.5 % (8-40); MCHC 28.8 g/dl (32.0-36.0); MEAN CELL VOLUME 65.9 fl (80-96); MEAN PLT VOLUME 8.2 fl (7.5-11.1); MONO % 4.8 % (3.8-10.2); NEUT % 76.5 % (42.8-82.8); PLATELET COUNT 331 10^3/uL (134-434); RBC 4.08 M/mm3 (3.60-5.2); RDW 24.5 % (11.6-15.6)
[2021-03-20 07:50] LABS: CALCIUM 8.7 mg/dL (8.5-10.1)
[2021-03-20 07:51] LABS: ALBUMIN 1.8 g/dl (3.4-5.0); BLOOD UREA NITROGEN 15.5 mg/dL (7-18); MAGNESIUM 1.9 mg/dL (1.8-2.4)
[2021-03-20 07:54] LABS: CREATININE 0.9 mg/dL (0.55-1.3)
[2021-03-20 07:55] LABS: BILIRUBIN,TOTAL 0.5 mg/dL (0.2-1); TOT PROT 6.2 g/dl (6.4-8.2)
[2021-03-20] MEDS: ALBUTEROL SO4 2.5/IPRATROPIUM 0.5 INH SOL 3 ML VIAL.NEB. NEB SCH ×5 (08:04→20:14)
[2021-03-20] MEDS ORDERED: INSULIN (LEVEMIR) 100 UNITS/ML UNITS SQ ONE (08:20)
[2021-03-20] MEDS ORDERED: INSULIN SLIDING SCALE (NOVOLOG) 1 VIAL SQ ONE (08:20)
[2021-03-20] MEDS ORDERED: PT OWN MED DRAWER 7, Y5N ONE ×4 (09:10→21:46)
[2021-03-20] MEDS ORDERED: DEXTROSE 5%-WATER 100 ML IVPB ONE (09:11)
[2021-03-20] MEDS: ASCORBIC ACID 500 MG TABLET (FP) PO SCH (09:33)
[2021-03-20] MEDS: AMINO ACIDS/PROTEIN HYDROLYS 30 ML LIQUID.PKT PO SCH (09:33)
[2021-03-20] MEDS: FOLIC ACID 1 MG TABLET (FP) PO SCH (09:33)
[2021-03-20] MEDS: predniSONE 5 MG TABLET (UD) PO SCH (09:35)
[2021-03-20] MEDS: CALCIUM (OYSTER SHELL) 500 MG TABLET (FP) PO SCH ×2 (09:35→22:41)
[2021-03-20] MEDS: PANTOPRAZOLE 40 MG TABLET PO SCH (09:35)
[2021-03-20] MEDS: FERROUS SO4 325 MG TABLET (FP) PO SCH ×2 (09:35→17:34)
[2021-03-20] MEDS: HEPARIN NA (PORCINE) 5,000 UNITS/ML 1ML VIAL SQ SCH ×2 (09:36→22:43)
[2021-03-20] MEDS: NYSTATIN 100,000 UNIT/GM TOPICAL CREAM 15 GM TUBE TP SCH ×2 (09:37→22:45)
[2021-03-20] MEDS ORDERED: CEFTRIAXONE 2 GM in DEXTROSE 5%-WATER 2 GM/100 ML BAG IVPB SCH (10:00)
[2021-03-20] MEDS: VANCOMYCIN/WATER BAGS 1,250 MG/250 ML BAG IVPB SCH ×2 (11:18→23:45)
[2021-03-20] MEDS: ERTAPENEM SODIUM 1 GM in SODIUM CHLORIDE 50 ML IVPB SCH (14:57)
[2021-03-21] MEDS: GABAPENTIN 300 MG CAPSULE PO SCH ×3 (06:48→21:32)
[2021-03-21] MEDS: INSULIN (LEVEMIR) 100 UNITS/ML UNITS SQ SCH ×2 (06:48→21:44)
[2021-03-21] MEDS: INSULIN SLIDING SCALE (NOVOLOG) 1 VIAL SQ SCH ×3 (06:49→16:54)
[2021-03-21 07:08] LABS: BASO % 0.6 % (0-2.0); EOS % 10.9 % (0-4.5); HEMATOCRIT 28.3 % (32.4-45.2); HEMOGLOBIN 8.2 GM/dL (10.7-15.3); LYMPH % 15.9 % (8-40); MCHC 29.1 g/dl (32.0-36.0); MEAN CELL VOLUME 65.4 fl (80-96); MEAN PLT VOLUME 8.1 fl (7.5-11.1); MONO % 5.7 % (3.8-10.2); NEUT % 66.9 % (42.8-82.8); PLATELET COUNT 302 10^3/uL (134-434); RBC 4.32 M/mm3 (3.60-5.2); RDW 25.2 % (11.6-15.6); WHITE BLOOD COUNT 11.1 K/mm3 (4.0-10.0)
[2021-03-21 07:28] LABS: ALBUMIN 1.8 g/dl (3.4-5.0); CALCIUM 9.1 mg/dL (8.5-10.1)
[2021-03-21 07:32] LABS: CREATININE 0.8 mg/dL (0.55-1.3)
[2021-03-21 07:33] LABS: BILIRUBIN,TOTAL 0.4 mg/dL (0.2-1); TOT PROT 6.5 g/dl (6.4-8.2)
[2021-03-21] MEDS ORDERED: INSULIN SLIDING SCALE (NOVOLOG) 1 VIAL SQ ONE (07:54)
[2021-03-21] MEDS: ALBUTEROL SO4 2.5/IPRATROPIUM 0.5 INH SOL 3 ML VIAL.NEB. NEB SCH ×4 (08:15→20:04)
[2021-03-21] MEDS ORDERED: PT OWN MED DRAWER 7, Y5N ONE ×4 (10:07→14:44)
[2021-03-21] MEDS: CALCIUM (OYSTER SHELL) 500 MG TABLET (FP) PO SCH ×2 (10:09→21:32)
[2021-03-21] MEDS: FERROUS SO4 325 MG TABLET (FP) PO SCH ×2 (10:11→18:00)
[2021-03-21] MEDS: FOLIC ACID 1 MG TABLET (FP) PO SCH (10:11)
[2021-03-21] MEDS: AMINO ACIDS/PROTEIN HYDROLYS 30 ML LIQUID.PKT PO SCH (10:11)
[2021-03-21] MEDS: predniSONE 5 MG TABLET (UD) PO SCH (10:11)
[2021-03-21] MEDS: PANTOPRAZOLE 40 MG TABLET PO SCH (10:11)
[2021-03-21] MEDS: ASCORBIC ACID 500 MG TABLET (FP) PO SCH (10:11)
[2021-03-21] MEDS: HEPARIN NA (PORCINE) 5,000 UNITS/ML 1ML VIAL SQ SCH ×2 (10:12→21:32)
[2021-03-21] MEDS: ERTAPENEM SODIUM 1 GM in SODIUM CHLORIDE 50 ML IVPB SCH (10:13)
[2021-03-21 11:25] LABS: ANISOCYTOSIS 1+; MACROCYTOSIS 0; PLATELET ESTIMATE NORMAL; TARGET CELLS 1+
[2021-03-21] MEDS: VANCOMYCIN/WATER BAGS 1,250 MG/250 ML BAG IVPB SCH ×2 (11:41→13:45)
[2021-03-21] MEDS: NYSTATIN 100,000 UNIT/GM TOPICAL CREAM 15 GM TUBE TP SCH ×2 (13:06→21:32)
[2021-03-22] MEDS: INSULIN SLIDING SCALE (NOVOLOG) 1 VIAL SQ SCH ×3 (06:24→17:19)
[2021-03-22] MEDS: GABAPENTIN 300 MG CAPSULE PO SCH ×3 (06:25→21:24)
[2021-03-22] MEDS: INSULIN (LEVEMIR) 100 UNITS/ML UNITS SQ SCH ×2 (06:25→21:24)
[2021-03-22] MEDS: ALBUTEROL SO4 2.5/IPRATROPIUM 0.5 INH SOL 3 ML VIAL.NEB. NEB SCH ×4 (07:30→20:15)
[2021-03-22] MEDS ORDERED: PT OWN MED DRAWER 7, Y5N ONE (09:18)
[2021-03-22] MEDS: ERTAPENEM SODIUM 1 GM in SODIUM CHLORIDE 50 ML IVPB SCH (09:23)
[2021-03-22] MEDS: ASCORBIC ACID 500 MG TABLET (FP) PO SCH (09:24)
[2021-03-22] MEDS: FOLIC ACID 1 MG TABLET (FP) PO SCH (09:24)
[2021-03-22] MEDS: CALCIUM (OYSTER SHELL) 500 MG TABLET (FP) PO SCH ×2 (09:24→21:24)
[2021-03-22] MEDS: FUROSEMIDE 40 MG TABLET (FP) PO SCH (09:25)
[2021-03-22] MEDS: HEPARIN NA (PORCINE) 5,000 UNITS/ML 1ML VIAL SQ SCH ×2 (09:25→21:24)
[2021-03-22] MEDS: predniSONE 5 MG TABLET (UD) PO SCH (09:25)
[2021-03-22] MEDS: FERROUS SO4 325 MG TABLET (FP) PO SCH ×2 (09:25→17:13)
[2021-03-22] MEDS: AMINO ACIDS/PROTEIN HYDROLYS 30 ML LIQUID.PKT PO SCH (09:25)
[2021-03-22] MEDS: PANTOPRAZOLE 40 MG TABLET PO SCH (09:25)
[2021-03-22] MEDS: NYSTATIN 100,000 UNIT/GM TOPICAL CREAM 15 GM TUBE TP SCH (10:55)
[2021-03-22 12:59] LABS: BASO % 0.8 % (0-2.0); EOS % 9.7 % (0-4.5); HEMATOCRIT 29.4 % (32.4-45.2); HEMOGLOBIN 8.4 GM/dL (10.7-15.3); LYMPH % 11.5 % (8-40); MCH 18.9 pg (25.7-33.7); MCHC 28.6 g/dl (32.0-36.0); MEAN CELL VOLUME 66.3 fl (80-96); MEAN PLT VOLUME 8.2 fl (7.5-11.1); MONO % 5.5 % (3.8-10.2); NEUT % 72.5 % (42.8-82.8); PLATELET COUNT 318 10^3/uL (134-434); RBC 4.44 M/mm3 (3.60-5.2); RDW 25.3 % (11.6-15.6); WHITE BLOOD COUNT 12.3 K/mm3 (4.0-10.0)
[2021-03-22 13:16] LABS: BLOOD UREA NITROGEN 11.2 mg/dL (7-18); CALCIUM 8.9 mg/dL (8.5-10.1)
[2021-03-22 13:20] LABS: CREATININE 0.8 mg/dL (0.55-1.3)
[2021-03-22 13:21] LABS: BILIRUBIN,TOTAL 0.2 mg/dL (0.2-1); TOT PROT 7.1 g/dl (6.4-8.2)
[2021-03-22] MEDS: VANCOMYCIN/WATER BAGS 1,250 MG/250 ML BAG IVPB SCH (15:33)
[2021-03-22] MEDS: NYSTATIN POWDER 100,000 UNITS/GM - 15 GM TOPICAL POWDER TP SCH (21:24)
[2021-03-23] MEDS: INSULIN SLIDING SCALE (NOVOLOG) 1 VIAL SQ SCH ×3 (06:02→16:49)
[2021-03-23] MEDS: INSULIN (LEVEMIR) 100 UNITS/ML UNITS SQ SCH ×2 (06:03→21:38)
[2021-03-23] MEDS: GABAPENTIN 300 MG CAPSULE PO SCH ×3 (06:04→21:27)
[2021-03-23] MEDS: ALBUTEROL SO4 2.5/IPRATROPIUM 0.5 INH SOL 3 ML VIAL.NEB. NEB SCH ×4 (07:28→20:09)
[2021-03-23 08:41] LABS: BASO % 0.9 % (0-2.0); HEMATOCRIT 29.9 % (32.4-45.2); HEMOGLOBIN 8.4 GM/dL (10.7-15.3); LYMPH % 14.7 % (8-40); MCHC 28.1 g/dl (32.0-36.0); MEAN PLT VOLUME 8.5 fl (7.5-11.1); MONO % 5.5 % (3.8-10.2); NEUT % 67.9 % (42.8-82.8); PLATELET COUNT 345 10^3/uL (134-434); RBC 4.47 M/mm3 (3.60-5.2); RDW 25.7 % (11.6-15.6); WHITE BLOOD COUNT 11.1 K/mm3 (4.0-10.0)
[2021-03-23 08:56] LABS: CALCIUM 9.7 mg/dL (8.5-10.1); MCH 18.8 pg (25.7-33.7)
[2021-03-23 08:57] LABS: ALBUMIN 2.1 g/dl (3.4-5.0); BLOOD UREA NITROGEN 9.5 mg/dL (7-18)
[2021-03-23 09:00] LABS: CREATININE 0.8 mg/dL (0.55-1.3)
[2021-03-23 09:01] LABS: BILIRUBIN,TOTAL 0.4 mg/dL (0.2-1); TOT PROT 7.1 g/dl (6.4-8.2)
[2021-03-23] MEDS ORDERED: PT OWN MED DRAWER 7, Y5N ONE ×2 (09:12→13:43)
[2021-03-23] MEDS: CALCIUM (OYSTER SHELL) 500 MG TABLET (FP) PO SCH ×2 (09:32→21:27)
[2021-03-23] MEDS: FUROSEMIDE 40 MG TABLET (FP) PO SCH (09:32)
[2021-03-23] MEDS: FERROUS SO4 325 MG TABLET (FP) PO SCH ×2 (09:33→17:11)
[2021-03-23] MEDS: predniSONE 5 MG TABLET (UD) PO SCH (09:33)
[2021-03-23] MEDS: ASCORBIC ACID 500 MG TABLET (FP) PO SCH (09:33)
[2021-03-23] MEDS: FOLIC ACID 1 MG TABLET (FP) PO SCH (09:33)
[2021-03-23] MEDS: HEPARIN NA (PORCINE) 5,000 UNITS/ML 1ML VIAL SQ SCH ×2 (09:34→21:28)
[2021-03-23] MEDS: PANTOPRAZOLE 40 MG TABLET PO SCH (09:34)
[2021-03-23] MEDS: AMINO ACIDS/PROTEIN HYDROLYS 30 ML LIQUID.PKT PO SCH (09:34)
[2021-03-23] MEDS: ERTAPENEM SODIUM 1 GM in SODIUM CHLORIDE 50 ML IVPB SCH (09:36)
[2021-03-23] MEDS: NYSTATIN POWDER 100,000 UNITS/GM - 15 GM TOPICAL POWDER TP SCH ×2 (09:36→21:39)
[2021-03-23] MEDS: VANCOMYCIN/WATER BAGS 1,250 MG/250 ML BAG IVPB SCH (13:44)
[2021-03-23] MEDS ORDERED: ACETAMINOPHEN 1000 MG/100 ML VIAL (NON FORMULARY) IVPB ONE (17:58)
[2021-03-24] MEDS: INSULIN SLIDING SCALE (NOVOLOG) 1 VIAL SQ SCH ×3 (06:12→17:11)
[2021-03-24] MEDS: INSULIN (LEVEMIR) 100 UNITS/ML UNITS SQ SCH ×2 (06:12→21:10)
[2021-03-24] MEDS: GABAPENTIN 300 MG CAPSULE PO SCH ×3 (06:12→21:09)
[2021-03-24] MEDS: ALBUTEROL SO4 2.5/IPRATROPIUM 0.5 INH SOL 3 ML VIAL.NEB. NEB SCH ×3 (08:50→16:43)
[2021-03-24] MEDS ORDERED: PT OWN MED DRAWER 7, Y5N ONE ×2 (09:22→13:55)
[2021-03-24] MEDS: FUROSEMIDE 40 MG TABLET (FP) PO SCH (09:27)
[2021-03-24] MEDS: AMINO ACIDS/PROTEIN HYDROLYS 30 ML LIQUID.PKT PO SCH (09:27)
[2021-03-24] MEDS: CALCIUM (OYSTER SHELL) 500 MG TABLET (FP) PO SCH ×2 (09:27→21:10)
[2021-03-24] MEDS: FOLIC ACID 1 MG TABLET (FP) PO SCH (09:27)
[2021-03-24] MEDS: FERROUS SO4 325 MG TABLET (FP) PO SCH ×2 (09:27→17:11)
[2021-03-24] MEDS: PANTOPRAZOLE 40 MG TABLET PO SCH (09:27)
[2021-03-24] MEDS: ASCORBIC ACID 500 MG TABLET (FP) PO SCH (09:27)
[2021-03-24] MEDS: HEPARIN NA (PORCINE) 5,000 UNITS/ML 1ML VIAL SQ SCH ×2 (09:28→21:09)
[2021-03-24] MEDS: ERTAPENEM SODIUM 1 GM in SODIUM CHLORIDE 50 ML IVPB SCH (09:28)
[2021-03-24] MEDS: NYSTATIN POWDER 100,000 UNITS/GM - 15 GM TOPICAL POWDER TP SCH ×2 (09:28→21:10)
[2021-03-24] MEDS: predniSONE 5 MG TABLET (UD) PO SCH (09:28)
[2021-03-24] MEDS: VANCOMYCIN/WATER BAGS 1,250 MG/250 ML BAG IVPB SCH (14:19)
[2021-03-25] MEDS: INSULIN (LEVEMIR) 100 UNITS/ML UNITS SQ SCH ×2 (06:22→21:27)
[2021-03-25] MEDS: GABAPENTIN 300 MG CAPSULE PO SCH ×3 (06:22→21:27)
[2021-03-25] MEDS: INSULIN SLIDING SCALE (NOVOLOG) 1 VIAL SQ SCH ×3 (06:23→16:45)
[2021-03-25 06:44] LABS: BASO % 1.2 % (0-2.0); EOS % 9.5 % (0-4.5); HEMATOCRIT 27.4 % (32.4-45.2); HEMOGLOBIN 7.9 GM/dL (10.7-15.3); LYMPH % 14.5 % (8-40); MCHC 28.7 g/dl (32.0-36.0); MEAN CELL VOLUME 66.5 fl (80-96); MEAN PLT VOLUME 8.1 fl (7.5-11.1); MONO % 6.9 % (3.8-10.2); NEUT % 67.9 % (42.8-82.8); PLATELET COUNT 381 10^3/uL (134-434); RBC 4.12 M/mm3 (3.60-5.2); RDW 25.5 % (11.6-15.6); WHITE BLOOD COUNT 12.8 K/mm3 (4.0-10.0)
[2021-03-25 06:56] LABS: MCH 19.1 pg (25.7-33.7)
[2021-03-25 07:05] LABS: ALBUMIN 2.1 g/dl (3.4-5.0); CALCIUM 9.2 mg/dL (8.5-10.1)
[2021-03-25 07:09] LABS: CREATININE 0.7 mg/dL (0.55-1.3)
[2021-03-25 07:10] LABS: BILIRUBIN,TOTAL 0.3 mg/dL (0.2-1)
[2021-03-25 07:13] LABS: BLOOD UREA NITROGEN 14.1 mg/dL (7-18)
[2021-03-25] MEDS: AMINO ACIDS/PROTEIN HYDROLYS 30 ML LIQUID.PKT PO SCH (08:52)
[2021-03-25] MEDS ORDERED: PT OWN MED DRAWER 7, Y5N ONE ×3 (09:31→16:37)
[2021-03-25] MEDS: MULTIVITAMINS THER W-MINERALS COMBO TABLET (FP) PO SCH (09:34)
[2021-03-25] MEDS: FUROSEMIDE 40 MG TABLET (FP) PO SCH (09:34)
[2021-03-25] MEDS: PANTOPRAZOLE 40 MG TABLET PO SCH (09:34)
[2021-03-25] MEDS: FERROUS SO4 325 MG TABLET (FP) PO SCH ×2 (09:34→16:48)
[2021-03-25] MEDS: predniSONE 5 MG TABLET (UD) PO SCH (09:34)
[2021-03-25] MEDS: CALCIUM (OYSTER SHELL) 500 MG TABLET (FP) PO SCH ×2 (09:34→21:27)
[2021-03-25] MEDS: FOLIC ACID 1 MG TABLET (FP) PO SCH (09:34)
[2021-03-25] MEDS: NYSTATIN POWDER 100,000 UNITS/GM - 15 GM TOPICAL POWDER TP SCH ×2 (09:35→21:37)
[2021-03-25] MEDS: HEPARIN NA (PORCINE) 5,000 UNITS/ML 1ML VIAL SQ SCH ×2 (09:35→21:27)
[2021-03-25] MEDS: ASCORBIC ACID 500 MG TABLET (FP) PO SCH (09:36)
[2021-03-25 10:45] LABS: ANISOCYTOSIS 1+; MACROCYTOSIS 0; OVALOCYTE 1+; PLATELET ESTIMATE NORMAL
[2021-03-25] MEDS: ERTAPENEM SODIUM 1 GM in SODIUM CHLORIDE 50 ML IVPB SCH (10:54)
[2021-03-25] MEDS: VANCOMYCIN/WATER BAGS 1,250 MG/250 ML BAG IVPB SCH (16:39)
[2021-03-25] MEDS: PHENAZOPYRIDINE HCL 100 MG TABLET (FP) PO PRN (21:27)
[2021-03-26] MEDS: INSULIN SLIDING SCALE (NOVOLOG) 1 VIAL SQ SCH ×3 (06:21→17:24)
[2021-03-26] MEDS: INSULIN (LEVEMIR) 100 UNITS/ML UNITS SQ SCH ×2 (06:21→22:07)
[2021-03-26] MEDS: GABAPENTIN 300 MG CAPSULE PO SCH ×3 (06:21→21:57)
[2021-03-26 07:37] LABS: BASO % 1.1 % (0-2.0); EOS % 10.8 % (0-4.5); HEMATOCRIT 30.3 % (32.4-45.2); HEMOGLOBIN 8.4 GM/dL (10.7-15.3); LYMPH % 15.2 % (8-40); MCHC 27.9 g/dl (32.0-36.0); MEAN CELL VOLUME 67.5 fl (80-96); MEAN PLT VOLUME 8.8 fl (7.5-11.1); NEUT % 66.9 % (42.8-82.8); PLATELET COUNT 404 10^3/uL (134-434); RBC 4.48 M/mm3 (3.60-5.2); RDW 26.5 % (11.6-15.6)
[2021-03-26 07:43] LABS: MCH 18.8 pg (25.7-33.7)
[2021-03-26 07:55] LABS: ALBUMIN 2.2 g/dl (3.4-5.0); BLOOD UREA NITROGEN 14.8 mg/dL (7-18)
[2021-03-26 07:58] LABS: CREATININE 0.9 mg/dL (0.55-1.3)
[2021-03-26 08:00] LABS: BILIRUBIN,TOTAL 0.3 mg/dL (0.2-1); TOT PROT 7.3 g/dl (6.4-8.2)
[2021-03-26] MEDS: FERROUS SO4 325 MG TABLET (FP) PO SCH ×2 (08:37→17:25)
[2021-03-26] MEDS: AMINO ACIDS/PROTEIN HYDROLYS 30 ML LIQUID.PKT PO SCH (08:37)
[2021-03-26] MEDS ORDERED: PT OWN MED DRAWER 7, Y5N ONE ×4 (10:06→17:55)
[2021-03-26] MEDS: predniSONE 5 MG TABLET (UD) PO SCH (10:08)
[2021-03-26] MEDS: ASCORBIC ACID 500 MG TABLET (FP) PO SCH (10:08)
[2021-03-26] MEDS: PANTOPRAZOLE 40 MG TABLET PO SCH (10:08)
[2021-03-26] MEDS: FOLIC ACID 1 MG TABLET (FP) PO SCH (10:08)
[2021-03-26] MEDS: CALCIUM (OYSTER SHELL) 500 MG TABLET (FP) PO SCH ×2 (10:08→21:57)
[2021-03-26] MEDS: FUROSEMIDE 40 MG TABLET (FP) PO SCH (10:08)
[2021-03-26] MEDS: HEPARIN NA (PORCINE) 5,000 UNITS/ML 1ML VIAL SQ SCH ×2 (10:08→21:58)
[2021-03-26] MEDS: MULTIVITAMINS THER W-MINERALS COMBO TABLET (FP) PO SCH (10:09)
[2021-03-26] MEDS: ERTAPENEM SODIUM 1 GM in SODIUM CHLORIDE 50 ML IVPB SCH (10:09)
[2021-03-26] MEDS: NYSTATIN POWDER 100,000 UNITS/GM - 15 GM TOPICAL POWDER TP SCH ×2 (10:09→21:58)
[2021-03-26] MEDS ORDERED: FLUCONAZOLE 150 MG TABLET PO ONE (11:00)
[2021-03-26] MEDS: VANCOMYCIN/WATER BAGS 1,250 MG/250 ML BAG IVPB SCH (14:23)
[2021-03-26] MEDS: PHENAZOPYRIDINE HCL 100 MG TABLET (FP) PO PRN (21:57)
[2021-03-27] MEDS: GABAPENTIN 300 MG CAPSULE PO SCH ×3 (05:59→21:19)
[2021-03-27] MEDS: INSULIN (LEVEMIR) 100 UNITS/ML UNITS SQ SCH ×2 (06:00→21:20)
[2021-03-27] MEDS: INSULIN SLIDING SCALE (NOVOLOG) 1 VIAL SQ SCH ×3 (06:00→17:25)
[2021-03-27] MEDS: PHENAZOPYRIDINE HCL 100 MG TABLET (FP) PO PRN (06:37)
[2021-03-27] MEDS: AMINO ACIDS/PROTEIN HYDROLYS 30 ML LIQUID.PKT PO SCH (08:47)
[2021-03-27] MEDS: FERROUS SO4 325 MG TABLET (FP) PO SCH ×2 (08:47→17:28)
[2021-03-27] MEDS ORDERED: PT OWN MED DRAWER 7, Y5N ONE ×3 (10:36→20:24)
[2021-03-27] MEDS: CALCIUM (OYSTER SHELL) 500 MG TABLET (FP) PO SCH ×2 (10:38→21:19)
[2021-03-27] MEDS: POLYETHYLENE GLYCOL (HEALTHYLAX) 3350 17 GM PACKET PO SCH (10:38)
[2021-03-27] MEDS: predniSONE 5 MG TABLET (UD) PO SCH (10:38)
[2021-03-27] MEDS: PANTOPRAZOLE 40 MG TABLET PO SCH (10:39)
[2021-03-27] MEDS: ERTAPENEM SODIUM 1 GM in SODIUM CHLORIDE 50 ML IVPB SCH (10:39)
[2021-03-27] MEDS: ASCORBIC ACID 500 MG TABLET (FP) PO SCH (10:39)
[2021-03-27] MEDS: MULTIVITAMINS THER W-MINERALS COMBO TABLET (FP) PO SCH (10:39)
[2021-03-27] MEDS: APIXABAN 5 MG TABLET PO SCH ×2 (10:39→21:19)
[2021-03-27] MEDS: FUROSEMIDE 40 MG TABLET (FP) PO SCH (10:39)
[2021-03-27] MEDS: HEPARIN NA (PORCINE) 5,000 UNITS/ML 1ML VIAL SQ SCH ×2 (10:39→21:20)
[2021-03-27] MEDS: FOLIC ACID 1 MG TABLET (FP) PO SCH (10:40)
[2021-03-27] MEDS: NYSTATIN POWDER 100,000 UNITS/GM - 15 GM TOPICAL POWDER TP SCH ×2 (11:12→21:26)
[2021-03-27] MEDS: VANCOMYCIN/WATER BAGS 1,250 MG/250 ML BAG IVPB SCH (15:30)
[2021-03-28] MEDS: INSULIN SLIDING SCALE (NOVOLOG) 1 VIAL SQ SCH ×3 (06:10→17:28)
[2021-03-28] MEDS: GABAPENTIN 300 MG CAPSULE PO SCH ×3 (06:12→21:53)
[2021-03-28] MEDS: INSULIN (LEVEMIR) 100 UNITS/ML UNITS SQ SCH ×2 (06:13→22:02)
[2021-03-28 07:19] LABS: BLOOD UREA NITROGEN 13.7 mg/dL (7-18); CALCIUM 8.6 mg/dL (8.5-10.1)
[2021-03-28 07:23] LABS: CREATININE 0.9 mg/dL (0.55-1.3)
[2021-03-28 09:37] LABS: BASO % 0.9 % (0-2.0); EOS % 9.3 % (0-4.5); HEMATOCRIT 30.4 % (32.4-45.2); HEMOGLOBIN 8.8 GM/dL (10.7-15.3); LYMPH % 14.4 % (8-40); MCHC 28.9 g/dl (32.0-36.0); MEAN CELL VOLUME 68.3 fl (80-96); MEAN PLT VOLUME 8.6 fl (7.5-11.1); NEUT % 70.4 % (42.8-82.8); PLATELET COUNT 389 10^3/uL (134-434); RBC 4.45 M/mm3 (3.60-5.2); RDW 26.3 % (11.6-15.6); WHITE BLOOD COUNT 12.7 K/mm3 (4.0-10.0)
[2021-03-28] MEDS: ERTAPENEM SODIUM 1 GM in SODIUM CHLORIDE 50 ML IVPB SCH (09:38)
[2021-03-28] MEDS: CALCIUM (OYSTER SHELL) 500 MG TABLET (FP) PO SCH ×2 (09:39→21:54)
[2021-03-28] MEDS: APIXABAN 5 MG TABLET PO SCH ×2 (09:39→21:54)
[2021-03-28] MEDS: predniSONE 5 MG TABLET (UD) PO SCH (09:40)
[2021-03-28] MEDS: ASCORBIC ACID 500 MG TABLET (FP) PO SCH (09:41)
[2021-03-28] MEDS: PANTOPRAZOLE 40 MG TABLET PO SCH (09:41)
[2021-03-28] MEDS: AMINO ACIDS/PROTEIN HYDROLYS 30 ML LIQUID.PKT PO SCH (09:41)
[2021-03-28] MEDS: FOLIC ACID 1 MG TABLET (FP) PO SCH (09:41)
[2021-03-28] MEDS: HEPARIN NA (PORCINE) 5,000 UNITS/ML 1ML VIAL SQ SCH ×2 (09:41→21:55)
[2021-03-28] MEDS: POLYETHYLENE GLYCOL (HEALTHYLAX) 3350 17 GM PACKET PO SCH (09:41)
[2021-03-28] MEDS: FERROUS SO4 325 MG TABLET (FP) PO SCH ×2 (09:41→17:19)
[2021-03-28] MEDS: FUROSEMIDE 40 MG TABLET (FP) PO SCH (09:41)
[2021-03-28] MEDS: MULTIVITAMINS THER W-MINERALS COMBO TABLET (FP) PO SCH (09:42)
[2021-03-28] MEDS: NYSTATIN POWDER 100,000 UNITS/GM - 15 GM TOPICAL POWDER TP SCH ×2 (09:42→21:54)
[2021-03-28 10:23] LABS: MCH 19.7 pg (25.7-33.7)
[2021-03-28 11:11] LABS: ANISOCYTOSIS 3+; MACROCYTOSIS 0; PLATELET ESTIMATE NORMAL
[2021-03-28] MEDS: VANCOMYCIN/WATER BAGS 1,250 MG/250 ML BAG IVPB SCH (14:00)
[2021-03-29] MEDS: GABAPENTIN 300 MG CAPSULE PO SCH ×3 (06:08→21:23)
[2021-03-29] MEDS: INSULIN (LEVEMIR) 100 UNITS/ML UNITS SQ SCH ×2 (06:12→21:23)
[2021-03-29] MEDS: INSULIN SLIDING SCALE (NOVOLOG) 1 VIAL SQ SCH ×3 (06:13→16:30)
[2021-03-29] MEDS: ACETAMINOPHEN 325 MG TABLET (FP) PO PRN ×2 (06:20→13:17)
[2021-03-29 07:30] LABS: ALBUMIN 2.2 g/dl (3.4-5.0); BILIRUBIN,TOTAL 0.3 mg/dL (0.2-1); BLOOD UREA NITROGEN 15.2 mg/dL (7-18); CALCIUM 8.7 mg/dL (8.5-10.1); CREATININE 0.9 mg/dL (0.55-1.3); TOT PROT 7.5 g/dl (6.4-8.2)
[2021-03-29 07:53] LABS: BASO % 1.5 % (0-2.0); EOS % 8.1 % (0-4.5); HEMATOCRIT 28.1 % (32.4-45.2); HEMOGLOBIN 8.1 GM/dL (10.7-15.3); LYMPH % 15.7 % (8-40); MCHC 28.7 g/dl (32.0-36.0); MEAN CELL VOLUME 68.4 fl (80-96); MEAN PLT VOLUME 7.9 fl (7.5-11.1); MONO % 6.6 % (3.8-10.2); NEUT % 68.1 % (42.8-82.8); PLATELET COUNT 396 10^3/uL (134-434); RBC 4.11 M/mm3 (3.60-5.2); RDW 26.5 % (11.6-15.6); WHITE BLOOD COUNT 12.5 K/mm3 (4.0-10.0)
[2021-03-29 07:55] LABS: MCH 19.6 pg (25.7-33.7)
[2021-03-29] MEDS ORDERED: PT OWN MED DRAWER 7, Y5N ONE ×2 (09:29→13:32)
[2021-03-29] MEDS: ASCORBIC ACID 500 MG TABLET (FP) PO SCH (09:37)
[2021-03-29] MEDS: APIXABAN 5 MG TABLET PO SCH ×2 (09:37→21:23)
[2021-03-29] MEDS: PANTOPRAZOLE 40 MG TABLET PO SCH (09:37)
[2021-03-29] MEDS: CALCIUM (OYSTER SHELL) 500 MG TABLET (FP) PO SCH ×2 (09:37→21:23)
[2021-03-29] MEDS: predniSONE 5 MG TABLET (UD) PO SCH (09:37)
[2021-03-29] MEDS: FERROUS SO4 325 MG TABLET (FP) PO SCH ×2 (09:39→16:31)
[2021-03-29] MEDS: FOLIC ACID 1 MG TABLET (FP) PO SCH (09:39)
[2021-03-29] MEDS: MULTIVITAMINS THER W-MINERALS COMBO TABLET (FP) PO SCH (09:39)
[2021-03-29] MEDS: AMINO ACIDS/PROTEIN HYDROLYS 30 ML LIQUID.PKT PO SCH (09:39)
[2021-03-29] MEDS: FUROSEMIDE 40 MG TABLET (FP) PO SCH (09:39)
[2021-03-29] MEDS: ERTAPENEM SODIUM 1 GM in SODIUM CHLORIDE 50 ML IVPB SCH (09:41)
[2021-03-29] MEDS: POLYETHYLENE GLYCOL (HEALTHYLAX) 3350 17 GM PACKET PO SCH (09:46)
[2021-03-29] MEDS: NYSTATIN POWDER 100,000 UNITS/GM - 15 GM TOPICAL POWDER TP SCH ×2 (10:24→21:24)
[2021-03-29] MEDS: VANCOMYCIN/WATER BAGS 1,250 MG/250 ML BAG IVPB SCH (14:05)
[2021-03-29] MEDS ORDERED: MICONAZOLE NITRATE 2% VAGINAL CREAM 45 GM TUBE PV SCH (22:00)
[2021-03-30] MEDS: INSULIN SLIDING SCALE (NOVOLOG) 1 VIAL SQ SCH ×3 (06:25→16:56)
[2021-03-30] MEDS: GABAPENTIN 300 MG CAPSULE PO SCH ×3 (06:25→22:13)
[2021-03-30] MEDS: INSULIN (LEVEMIR) 100 UNITS/ML UNITS SQ SCH ×2 (06:25→22:13)
[2021-03-30] MEDS: MULTIVITAMINS THER W-MINERALS COMBO TABLET (FP) PO SCH (09:17)
[2021-03-30] MEDS: ASCORBIC ACID 500 MG TABLET (FP) PO SCH (09:17)
[2021-03-30] MEDS: FERROUS SO4 325 MG TABLET (FP) PO SCH ×2 (09:17→18:11)
[2021-03-30] MEDS: FUROSEMIDE 20 MG TABLET (FP) PO SCH (09:17)
[2021-03-30] MEDS: APIXABAN 5 MG TABLET PO SCH ×2 (09:17→22:13)
[2021-03-30] MEDS: predniSONE 5 MG TABLET (UD) PO SCH (09:17)
[2021-03-30] MEDS: CALCIUM (OYSTER SHELL) 500 MG TABLET (FP) PO SCH ×2 (09:17→22:13)
[2021-03-30] MEDS: PANTOPRAZOLE 40 MG TABLET PO SCH (09:18)
[2021-03-30] MEDS: AMINO ACIDS/PROTEIN HYDROLYS 30 ML LIQUID.PKT PO SCH (09:18)
[2021-03-30] MEDS: FOLIC ACID 1 MG TABLET (FP) PO SCH (09:18)
[2021-03-30] MEDS ORDERED: PT OWN MED DRAWER 7, Y5N ONE ×2 (09:34→14:04)
[2021-03-30] MEDS: POLYETHYLENE GLYCOL (HEALTHYLAX) 3350 17 GM PACKET PO SCH (09:41)
[2021-03-30] MEDS: NYSTATIN POWDER 100,000 UNITS/GM - 15 GM TOPICAL POWDER TP SCH ×2 (10:36→22:14)
[2021-03-30] MEDS: ACETAMINOPHEN 325 MG TABLET (FP) PO PRN (11:34)
[2021-03-30] MEDS: VANCOMYCIN/WATER BAGS 1,250 MG/250 ML BAG IVPB SCH (14:05)
[2021-03-31] MEDS: INSULIN SLIDING SCALE (NOVOLOG) 1 VIAL SQ SCH ×3 (06:33→17:03)
[2021-03-31] MEDS: GABAPENTIN 300 MG CAPSULE PO SCH ×3 (06:33→21:27)
[2021-03-31] MEDS: INSULIN (LEVEMIR) 100 UNITS/ML UNITS SQ SCH ×2 (06:33→21:28)
[2021-03-31] MEDS: AMINO ACIDS/PROTEIN HYDROLYS 30 ML LIQUID.PKT PO SCH (08:45)
[2021-03-31] MEDS: FERROUS SO4 325 MG TABLET (FP) PO SCH ×2 (08:45→17:03)
[2021-03-31] MEDS: ASCORBIC ACID 500 MG TABLET (FP) PO SCH (09:45)
[2021-03-31] MEDS: MULTIVITAMINS THER W-MINERALS COMBO TABLET (FP) PO SCH (09:45)
[2021-03-31] MEDS: CALCIUM (OYSTER SHELL) 500 MG TABLET (FP) PO SCH ×2 (09:45→21:27)
[2021-03-31] MEDS: PANTOPRAZOLE 40 MG TABLET PO SCH (09:45)
[2021-03-31] MEDS: POLYETHYLENE GLYCOL (HEALTHYLAX) 3350 17 GM PACKET PO SCH (09:45)
[2021-03-31] MEDS: APIXABAN 5 MG TABLET PO SCH ×2 (09:46→21:27)
[2021-03-31] MEDS: FOLIC ACID 1 MG TABLET (FP) PO SCH (09:47)
[2021-03-31] MEDS: predniSONE 5 MG TABLET (UD) PO SCH (09:47)
[2021-03-31] MEDS: FUROSEMIDE 20 MG TABLET (FP) PO SCH (09:47)
[2021-03-31] MEDS: NYSTATIN POWDER 100,000 UNITS/GM - 15 GM TOPICAL POWDER TP SCH ×2 (09:47→21:28)
[2021-03-31] MEDS ORDERED: PT OWN MED DRAWER 7, Y5N ONE (14:15)
[2021-03-31] MEDS: VANCOMYCIN/WATER BAGS 1,250 MG/250 ML BAG IVPB SCH (14:20)
[2021-04-01] MEDS: INSULIN (LEVEMIR) 100 UNITS/ML UNITS SQ SCH ×2 (06:13→21:42)
[2021-04-01] MEDS: GABAPENTIN 300 MG CAPSULE PO SCH ×3 (06:13→21:41)
[2021-04-01] MEDS: INSULIN SLIDING SCALE (NOVOLOG) 1 VIAL SQ SCH ×3 (06:14→16:37)
[2021-04-01 06:50] LABS: HEMATOCRIT 29.7 % (32.4-45.2); HEMOGLOBIN 8.7 GM/dL (10.7-15.3); MCH 20.1 pg (25.7-33.7); MCHC 29.2 g/dl (32.0-36.0); MEAN CELL VOLUME 68.9 fl (80-96); MEAN PLT VOLUME 8.6 fl (7.5-11.1); PLATELET COUNT 339 10^3/uL (134-434); RBC 4.31 M/mm3 (3.60-5.2); RDW 26.8 % (11.6-15.6); WHITE BLOOD COUNT 11.5 K/mm3 (4.0-10.0)
[2021-04-01 07:05] LABS: CALCIUM 9.2 mg/dL (8.5-10.1); MAGNESIUM 1.7 mg/dL (1.8-2.4)
[2021-04-01 07:06] LABS: ALBUMIN 2.3 g/dl (3.4-5.0); BLOOD UREA NITROGEN 13.4 mg/dL (7-18)
[2021-04-01 07:08] LABS: CREATININE 0.8 mg/dL (0.55-1.3)
[2021-04-01 07:09] LABS: BILIRUBIN,TOTAL 0.2 mg/dL (0.2-1)
[2021-04-01 07:10] LABS: TOT PROT 7.6 g/dl (6.4-8.2)
[2021-04-01] MEDS: FERROUS SO4 325 MG TABLET (FP) PO SCH ×2 (08:36→16:41)
[2021-04-01] MEDS: AMINO ACIDS/PROTEIN HYDROLYS 30 ML LIQUID.PKT PO SCH (08:36)
[2021-04-01] MEDS ORDERED: MAGNESIUM SULF 50% (8.12 MEQ/2 ML-1 GM VIAL) IVPB ONE (09:02)
[2021-04-01] MEDS: MULTIVITAMINS THER W-MINERALS COMBO TABLET (FP) PO SCH (10:12)
[2021-04-01] MEDS: FOLIC ACID 1 MG TABLET (FP) PO SCH (10:12)
[2021-04-01] MEDS: PANTOPRAZOLE 40 MG TABLET PO SCH (10:12)
[2021-04-01] MEDS: CALCIUM (OYSTER SHELL) 500 MG TABLET (FP) PO SCH ×2 (10:12→21:41)
[2021-04-01] MEDS: APIXABAN 5 MG TABLET PO SCH ×2 (10:12→21:41)
[2021-04-01] MEDS: predniSONE 5 MG TABLET (UD) PO SCH (10:12)
[2021-04-01] MEDS: ASCORBIC ACID 500 MG TABLET (FP) PO SCH (10:12)
[2021-04-01] MEDS: FUROSEMIDE 20 MG TABLET (FP) PO SCH (10:13)
[2021-04-01] MEDS: POLYETHYLENE GLYCOL (HEALTHYLAX) 3350 17 GM PACKET PO SCH (10:14)
[2021-04-01] MEDS: NYSTATIN POWDER 100,000 UNITS/GM - 15 GM TOPICAL POWDER TP SCH ×2 (10:16→21:42)
[2021-04-01] MEDS: MICONAZOLE NITRATE 2% VAGINAL CREAM 45 GM TUBE PV SCH ×3 (12:26→22:01)
[2021-04-01] MEDS ORDERED: PT OWN MED DRAWER 7, Y5N ONE ×3 (13:16→21:55)
[2021-04-01] MEDS: VANCOMYCIN/WATER BAGS 1,250 MG/250 ML BAG IVPB SCH ×2 (17:23→17:25)
[2021-04-02 06:37] LABS: ARTERIAL BLD GAS O2 SATURATION 97.3 mmHg (95-98); ARTERIAL BLOOD GAS BASE EXCESS 9.3 mmol/L (-2-2); ARTERIAL BLOOD GAS PO2 104.3 mmHg (80-100); ARTERIAL BLOOD GAS pH 7.344 (7.350-7.450)
[2021-04-02 06:39] LABS: ALLENS TEST POSITIVE
[2021-04-02] MEDS: GABAPENTIN 300 MG CAPSULE PO SCH ×3 (06:39→21:34)
[2021-04-02] MEDS: INSULIN (LEVEMIR) 100 UNITS/ML UNITS SQ SCH ×2 (06:39→22:25)
[2021-04-02] MEDS: INSULIN SLIDING SCALE (NOVOLOG) 1 VIAL SQ SCH ×3 (06:40→16:55)
[2021-04-02] MEDS ORDERED: PT OWN MED DRAWER 7, Y5N ONE (09:02)
[2021-04-02] MEDS: FUROSEMIDE 20 MG TABLET (FP) PO SCH (09:13)
[2021-04-02] MEDS: AMINO ACIDS/PROTEIN HYDROLYS 30 ML LIQUID.PKT PO SCH (09:14)
[2021-04-02] MEDS: PANTOPRAZOLE 40 MG TABLET PO SCH (09:14)
[2021-04-02] MEDS: APIXABAN 5 MG TABLET PO SCH ×2 (09:14→21:34)
[2021-04-02] MEDS: MULTIVITAMINS THER W-MINERALS COMBO TABLET (FP) PO SCH (09:14)
[2021-04-02] MEDS: FOLIC ACID 1 MG TABLET (FP) PO SCH (09:14)
[2021-04-02] MEDS: CALCIUM (OYSTER SHELL) 500 MG TABLET (FP) PO SCH ×2 (09:14→21:34)
[2021-04-02] MEDS: ASCORBIC ACID 500 MG TABLET (FP) PO SCH (09:14)
[2021-04-02] MEDS: FERROUS SO4 325 MG TABLET (FP) PO SCH ×2 (09:14→16:56)
[2021-04-02] MEDS: predniSONE 5 MG TABLET (UD) PO SCH (09:15)
[2021-04-02] MEDS: NYSTATIN POWDER 100,000 UNITS/GM - 15 GM TOPICAL POWDER TP SCH ×2 (09:17→22:23)
[2021-04-02] MEDS: POLYETHYLENE GLYCOL (HEALTHYLAX) 3350 17 GM PACKET PO SCH (09:17)
[2021-04-02] MEDS: VANCOMYCIN/WATER BAGS 1,250 MG/250 ML BAG IVPB SCH (16:56)
[2021-04-02] MEDS: MICONAZOLE NITRATE 2% VAGINAL CREAM 45 GM TUBE PV SCH (21:48)
[2021-04-03 00:06] VITALS: TEMP 98.8
[2021-04-03 06:35] VITALS: BP 145/55; PULSE 55
[2021-04-03] MEDS: INSULIN SLIDING SCALE (NOVOLOG) 1 VIAL SQ SCH (06:49)
[2021-04-03] MEDS: GABAPENTIN 300 MG CAPSULE PO SCH (06:52)
[2021-04-03] MEDS: INSULIN (LEVEMIR) 100 UNITS/ML UNITS SQ SCH (06:52)
[2021-04-03] MEDS: FERROUS SO4 325 MG TABLET (FP) PO SCH (08:35)
[2021-04-03] MEDS: AMINO ACIDS/PROTEIN HYDROLYS 30 ML LIQUID.PKT PO SCH (08:35)
[2021-04-03] MEDS ORDERED: PT OWN MED DRAWER 7, Y5N ONE (09:05)
[2021-04-03] MEDS: predniSONE 5 MG TABLET (UD) PO SCH (09:07)
[2021-04-03] MEDS: PANTOPRAZOLE 40 MG TABLET PO SCH (09:07)
[2021-04-03] MEDS: FOLIC ACID 1 MG TABLET (FP) PO SCH (09:07)
[2021-04-03] MEDS: ASCORBIC ACID 500 MG TABLET (FP) PO SCH (09:07)
[2021-04-03] MEDS: APIXABAN 5 MG TABLET PO SCH (09:08)
[2021-04-03] MEDS: CALCIUM (OYSTER SHELL) 500 MG TABLET (FP) PO SCH (09:08)
[2021-04-03] MEDS: MULTIVITAMINS THER W-MINERALS COMBO TABLET (FP) PO SCH (09:08)
[2021-04-03] MEDS: FUROSEMIDE 20 MG TABLET (FP) PO SCH (09:08)
[2021-04-03] MEDS: NYSTATIN POWDER 100,000 UNITS/GM - 15 GM TOPICAL POWDER TP SCH (09:09)
[2021-04-03] MEDS: POLYETHYLENE GLYCOL (HEALTHYLAX) 3350 17 GM PACKET PO SCH (09:12)
== END 2021-04-03 13:19 | DRG 871 ==
LOC: JER 10:44 → JERBED 11:58 → J2W 17:42 → J4S 03-19 18:24
PROVIDERS: ADMIT Family Medicine; ATTEND Family Medicine
PROC: 05H833Z Insertion of Infusion Device into Left Axillary Vein, Percutaneous Approach (ICD-10-PCS; principal; 2021-04-02)
PROC: B54NZZA Ultrasonography of Left Upper Extremity Veins, Guidance (ICD-10-PCS; 2021-04-02)
DX: A40.9 Streptococcal sepsis, unspecified (principal); J96.01 Acute respiratory failure with hypoxia; N39.0 Urinary tract infection, site not specified; N17.9 Acute kidney failure, unspecified; Z68.44 Body mass index [BMI] 60.0-69.9, adult; E87.4 Mixed disorder of acid-base balance; I50.32 Chronic diastolic (congestive) heart failure; I11.0 Hypertensive heart disease with heart failure; E11.9 Type 2 diabetes mellitus without complications; D64.9 Anemia, unspecified; Z86.718 Personal history of other venous thrombosis and embolism; Z79.4 Long term (current) use of insulin; E66.01 Morbid (severe) obesity due to excess calories; B37.3 Candidiasis of vulva and vagina; C54.1 Malignant neoplasm of endometrium; G47.33 Obstructive sleep apnea (adult) (pediatric)
CPT/HCPCS: 36415; 36430; 36511; 36569; 36600; 71045-TC-FY; 77001-TC-FY; 80048; 80053; 80061; 81003; 82436; 82570; 82607; 82728; 82803; 82962; 83036; 83540; 83550; 83605; 83721; 83735; 83880; 84100; 84133; 84300; 84439; 84443; 84484; 85025; 85027; 85610; 85730; 86850; 86900; 86901; 86922; 87040; 87081; 87086; 87186; 93005; 93010; 93306-TC; 94640; 99291; C1751; C9803; G0480; J0131; J1644; P9038; P9058; U0003; U0005

== ENCOUNTER 2021-06-16 20:17 | Emergency (ER) | payer OTHER ==
[2021-06-16 20:34] VITALS: BMI 51.5
[2021-06-16] MEDS ORDERED: CEFEPIME HCL/D5W 2 GM/50 ML BAG IVPB ONE (22:01)
[2021-06-16] MEDS ORDERED: VANCOMYCIN 1 GM in D5W (PRE-DOCKED) 1,000 MG/250 ML IVPB ONE (22:03)
[2021-06-16 22:17] LABS: VENOUS BASE EXCESS 5.7 mmol/L (-2-2); VENOUS O2 SATURATION 68.1 % (70-80); VENOUS PH 7.29 (7.310-7.410)
[2021-06-16 22:20] LABS: BASO % 1.4 % (0-2.0); EOS % 3.8 % (0-4.5); HEMATOCRIT 28.9 % (32.4-45.2); LYMPH % 11.8 % (8-40); MCH 23.7 pg (25.7-33.7); MCHC 31.2 g/dl (32.0-36.0); MEAN CELL VOLUME 76.1 fl (80-96); MEAN PLT VOLUME 8.5 fl (7.5-11.1); MONO % 7.2 % (3.8-10.2); NEUT % 75.8 % (42.8-82.8); PLATELET COUNT 234 10^3/uL (134-434); RDW 21.9 % (11.6-15.6); VENOUS PCO2 72.7 mmHg (38-52); WHITE BLOOD COUNT 13.7 K/mm3 (4.0-10.0)
[2021-06-16] MEDS ORDERED: VANCOMYCIN 1 GRAM (PRE-DOCKED) 1,000 MG/250 ML BAG IVPB ONE (22:23)
[2021-06-16] MEDS ORDERED: CEFEPIME 2 GM/100 ML BAG IVPB ONE (22:24)
[2021-06-16 22:28] LABS: CHLORIDE 100 mmol/L (98-107); INR 1.74 (0.83-1.09); PROTHROMBIN TIME (PATIENT) 20.7 SEC (9.7-13.0); SODIUM 139 mmol/L (136-145)
[2021-06-16 22:30] LABS: CALCIUM 8.9 mg/dL (8.5-10.1)
[2021-06-16 22:31] LABS: ACTIVATED PTT 32.8 SECONDS (25.2-36.5); ALBUMIN 1.9 g/dl (3.4-5.0); ANION GAP 6 MMOL/L (8-16); BLOOD UREA NITROGEN 21.3 mg/dL (7-18); CO2 34 mmol/L (21-32); GLUCOSE,RANDOM 136 mg/dL (74-106)
[2021-06-16 22:34] LABS: CREATININE 1.3 mg/dL (0.55-1.3); SGOT/AST 31 U/L (15-37); SGPT/ALT 16 U/L (13-61)
[2021-06-16 22:35] LABS: BILIRUBIN,TOTAL 0.4 mg/dL (0.2-1)
[2021-06-16 22:37] LABS: ALK PHOS 89 U/L (45-117)
[2021-06-16] MEDS ORDERED: ACETAMINOPHEN 160 MG/5 ML *Children Solution PO ONE (22:51)
[2021-06-16] MEDS ORDERED: ACETAMINOPHEN 650 MG/20.3 ML ORAL SOLUTION (CUPS) ONE (22:52)
[2021-06-16 23:15] VITALS: TEMP 99.9
[2021-06-16 23:33] VITALS: BP 100/48; PULSE 121
== END 2021-06-16 23:34 | disposition short-term general hospital (02) ==
LOC: JER 20:17
DX: R50.9 Fever, unspecified (principal); R10.9 Unspecified abdominal pain; E66.01 Morbid (severe) obesity due to excess calories
CPT/HCPCS: 36415; 71045-TC-FY; 80053; 82140; 82803; 83605; 84484; 85025; 85610; 85730; 86850; 86900; 86901; 87040; 93005; 93010; 99285-25

== ENCOUNTER 2021-09-05 18:44 | Inpatient (IN) | payer OTHER ==
[2021-09-05 19:17] VITALS: BMI 60.0
[2021-09-05] MEDS ORDERED: ONDANSETRON 4 MG/2 ML VIAL IVPUSH ONE (20:03)
[2021-09-05 21:50] LABS: VENOUS BASE EXCESS 1.4 mmol/L (-2-2); VENOUS O2 SATURATION 71.4 % (70-80); VENOUS PCO2 52.7 mmHg (38-52); VENOUS PH 7.334 (7.310-7.410)
[2021-09-05 21:51] LABS: BASO % 0.8 % (0-2.0); EOS % 7.5 % (0-4.5); HEMATOCRIT 22.7 % (32.4-45.2); HEMOGLOBIN 7.1 GM/dL (10.7-15.3); LYMPH % 15.7 % (8-40); MCH 23.1 pg (25.7-33.7); MCHC 31.4 g/dl (32.0-36.0); MEAN CELL VOLUME 73.6 fl (80-96); MEAN PLT VOLUME 7.2 fl (7.5-11.1); MONO % 5.8 % (3.8-10.2); NEUT % 70.2 % (42.8-82.8); PLATELET COUNT 513 10^3/uL (134-434); RBC 3.09 M/mm3 (3.60-5.2); WHITE BLOOD COUNT 12.3 K/mm3 (4.0-10.0)
[2021-09-05 22:04] LABS: INR 1.99 (0.83-1.09); PROTHROMBIN TIME (PATIENT) 22.4 SEC (9.7-13.0)
[2021-09-05 22:07] LABS: ACTIVATED PTT 33.9 SECONDS (25.2-36.5)
[2021-09-05 22:10] LABS: CALCIUM 8.2 mg/dL (8.5-10.1)
[2021-09-05 22:11] LABS: ALBUMIN 1.5 g/dl (3.4-5.0); BLOOD UREA NITROGEN 26.2 mg/dL (7-18)
[2021-09-05 22:14] LABS: CREATININE 2.2 mg/dL (0.55-1.3)
[2021-09-05 22:15] LABS: BILIRUBIN,TOTAL 0.3 mg/dL (0.2-1)
[2021-09-05 22:16] LABS: TOT PROT 8.5 g/dl (6.4-8.2)
[2021-09-05 22:32] LABS: LACTIC ACID 2.4 mmol/L (0.4-2.0)
[2021-09-06] MEDS ORDERED: SODIUM CHLORIDE 1,000 ML IV SCH (03:15)
[2021-09-06 03:48] LABS: EPI CELLS >36 /uL (0-25.1); HYALINE CASTS 25 /uL (0-3.1); PH,URINE >= 9.0 (5.0-8.0); URINE APPEARANCE TURBID; URINE BACTERIA >9,000 /uL (0-1359); URINE BILIRUBIN NEGATIVE (NEGATIVE); URINE COLOR YELLOW; URINE GLUCOSE (UA) NEGATIVE (NEGATIVE); URINE KETONE NEGATIVE (NEGATIVE); URINE LEUK ESTERASE 3+ (NEGATIVE); URINE NITRITE NEGATIVE (NEGATIVE); URINE PROTEIN 3+ (NEGATIVE); URINE WBC 1548 /uL (0-25.8)
[2021-09-06] MEDS ORDERED: CEFTRIAXONE 1,000 MG in DEXTROSE 5%-WATER - 50 ML IVPB ONE (03:56)
[2021-09-06] MEDS ORDERED: CEFTRIAXONE 1 GM/50 ML BAG ONE ×2 (04:04→09:53)
[2021-09-06 04:10] LABS: URINE CRYSTALS MODERATE /hpf; URINE RBC 63.8 /uL (0-23.9)
[2021-09-06] MEDS ORDERED: CEFTRIAXONE 1 GM in DEXTROSE 5%-WATER - 50 ML IVPB ONE (04:24)
[2021-09-06] MEDS ORDERED: FUROSEMIDE 40 MG/4 ML INJECTABLE VIAL IVPUSH ONE (04:36)
[2021-09-06] MEDS ORDERED: FUROSEMIDE 40 MG/4 ML INJECTABLE VIAL ONE (04:51)
[2021-09-06] MEDS: SODIUM CHLORIDE 1,000 ML IV SCH ×2 (05:05→16:06)
[2021-09-06 06:09] LABS: ARTERIAL BLD GAS O2 SATURATION 92.3 % (95-98); ARTERIAL BLOOD GAS BASE EXCESS -1.3 mmol/L (-2-2); ARTERIAL BLOOD GAS PO2 64.3 mmHg (80-100); ARTERIAL BLOOD GAS pH 7.384 (7.350-7.450)
[2021-09-06 06:18] LABS: ALLENS TEST POSITIVE
[2021-09-06] MEDS: GABAPENTIN 300 MG CAPSULE PO SCH ×3 (06:46→22:12)
[2021-09-06] MEDS ORDERED: ASCORBIC ACID 500 MG TABLET (FP) ONE (08:52)
[2021-09-06] MEDS ORDERED: PANTOPRAZOLE 40 MG TABLET ONE (08:52)
[2021-09-06] MEDS ORDERED: ALBUTEROL SO4 2.5/IPRATROPIUM 0.5 INH SOL 3 ML VIAL.NEB. NEB ONE (08:52)
[2021-09-06] MEDS ORDERED: FOLIC ACID 1 MG TABLET (FP) ONE (08:53)
[2021-09-06] MEDS ORDERED: FERROUS SO4 325 MG TABLET (FP) ONE (08:53)
[2021-09-06] MEDS: FERROUS SO4 325 MG TABLET (FP) PO SCH ×2 (09:09→22:12)
[2021-09-06] MEDS: INSULIN SLIDING SCALE (NOVOLOG) 1 VIAL SQ SCH ×4 (09:09→22:26)
[2021-09-06] MEDS: FOLIC ACID 1 MG TABLET (FP) PO SCH (09:10)
[2021-09-06] MEDS: ASCORBIC ACID 500 MG TABLET (FP) PO SCH (09:10)
[2021-09-06] MEDS ORDERED: NYSTATIN 100,000 UNIT/GM TOPICAL CREAM 15 GM TUBE TP SCH (10:00)
[2021-09-06] MEDS ORDERED: PANTOPRAZOLE 40 MG TABLET PO SCH (10:00)
[2021-09-06] MEDS: ALBUTEROL SO4 2.5/IPRATROPIUM 0.5 INH SOL 3 ML VIAL.NEB. NEB SCH ×2 (11:04→12:27)
[2021-09-06] MEDS: NYSTATIN POWDER 100,000 UNITS/GM - 15 GM TOPICAL POWDER TP SCH ×2 (11:10→22:12)
[2021-09-06] MEDS ORDERED: VANCOMYCIN PREMIX 1.5 GM 1,500 MG/300 ML BAG IVPB ONE (12:00)
[2021-09-06] MEDS ORDERED: ALBUTEROL SO4 2.5/IPRATROPIUM 0.5 INH SOL 3 ML VIAL.NEB. NEB PRN (15:29)
[2021-09-06] MEDS: oxyCODONE HCL 5 MG TABLET PO PRN (16:04)
[2021-09-06] MEDS: ERTAPENEM SODIUM 1 GM in SODIUM CHLORIDE 50 ML IVPB SCH (16:05)
[2021-09-06] MEDS: MINERAL OIL/PET HY-PHL TOPICAL OINTMENT 454 GM JAR TP SCH ×2 (16:05→22:12)
[2021-09-06] MEDS: ACETAMINOPHEN 325 MG TABLET (FP) PO PRN (16:05)
[2021-09-06] MEDS ORDERED: INSULIN (NOVOLOG) ASPART 100 UNITS/ML 10ML VIAL ONE (22:11)
[2021-09-07] MEDS: GABAPENTIN 300 MG CAPSULE PO SCH ×3 (06:28→21:23)
[2021-09-07] MEDS: oxyCODONE HCL 5 MG TABLET PO PRN ×3 (06:28→23:04)
[2021-09-07] MEDS: INSULIN SLIDING SCALE (NOVOLOG) 1 VIAL SQ SCH ×4 (06:34→21:27)
[2021-09-07] MEDS ORDERED: IRON SUCROSE INJECTION 200 MG in SODIUM CHLORIDE 90 ML IVPB ONE (09:00)
[2021-09-07] MEDS ORDERED: CEFTRIAXONE 1 GM in DEXTROSE 5%-WATER - 50 ML IVPB SCH (10:00)
[2021-09-07] MEDS ORDERED: PT OWN MED DRAWER 7, Y5N ONE ×2 (11:02→18:14)
[2021-09-07] MEDS: ERTAPENEM SODIUM 1 GM in SODIUM CHLORIDE 50 ML IVPB SCH (11:25)
[2021-09-07] MEDS: ASCORBIC ACID 500 MG TABLET (FP) PO SCH (11:26)
[2021-09-07] MEDS: PANTOPRAZOLE 20 MG TABLET PO SCH (11:26)
[2021-09-07] MEDS: NYSTATIN POWDER 100,000 UNITS/GM - 15 GM TOPICAL POWDER TP SCH ×2 (11:27→21:28)
[2021-09-07] MEDS: FERROUS SO4 325 MG TABLET (FP) PO SCH ×2 (11:27→21:23)
[2021-09-07] MEDS: MINERAL OIL/PET HY-PHL TOPICAL OINTMENT 454 GM JAR TP SCH ×2 (11:27→21:27)
[2021-09-07] MEDS: FOLIC ACID 1 MG TABLET (FP) PO SCH (11:27)
[2021-09-07 11:40] LABS: BASO % 0.8 % (0-2.0); EOS % 8.7 % (0-4.5); HEMATOCRIT 27.6 % (32.4-45.2); HEMOGLOBIN 8.8 GM/dL (10.7-15.3); MCH 24.5 pg (25.7-33.7); MEAN CELL VOLUME 76.5 fl (80-96); MEAN PLT VOLUME 7.1 fl (7.5-11.1); NEUT % 65.5 % (42.8-82.8); PLATELET COUNT 501 10^3/uL (134-434); RBC 3.61 M/mm3 (3.60-5.2); RDW 19.1 % (11.6-15.6); WHITE BLOOD COUNT 11.6 K/mm3 (4.0-10.0)
[2021-09-07 11:47] LABS: CALCIUM 8.2 mg/dL (8.5-10.1)
[2021-09-07 11:48] LABS: ALBUMIN 1.3 g/dl (3.4-5.0); BLOOD UREA NITROGEN 25.5 mg/dL (7-18)
[2021-09-07 11:51] LABS: CREATININE 1.6 mg/dL (0.55-1.3)
[2021-09-07 11:53] LABS: BILIRUBIN,TOTAL 0.4 mg/dL (0.2-1); TOT PROT 7.8 g/dl (6.4-8.2)
[2021-09-07] MEDS: ACETAMINOPHEN 325 MG TABLET (FP) PO PRN (16:06)
[2021-09-07] MEDS ORDERED: INSULIN (NOVOLOG) ASPART 100 UNITS/ML 10ML VIAL ONE (20:41)
[2021-09-08] MEDS: INSULIN SLIDING SCALE (NOVOLOG) 1 VIAL SQ SCH ×4 (06:14→21:29)
[2021-09-08] MEDS: GABAPENTIN 300 MG CAPSULE PO SCH ×3 (06:14→21:35)
[2021-09-08 10:23] LABS: BASO % 0.9 % (0-2.0); EOS % 6.9 % (0-4.5); HEMATOCRIT 24.8 % (32.4-45.2); HEMOGLOBIN 8.1 GM/dL (10.7-15.3); LYMPH % 22.3 % (8-40); MCH 25.1 pg (25.7-33.7); MCHC 32.5 g/dl (32.0-36.0); MEAN CELL VOLUME 77.2 fl (80-96); MEAN PLT VOLUME 7.1 fl (7.5-11.1); MONO % 7.6 % (3.8-10.2); NEUT % 62.3 % (42.8-82.8); PLATELET COUNT 419 10^3/uL (134-434); RBC 3.21 M/mm3 (3.60-5.2); RDW 19.4 % (11.6-15.6); WHITE BLOOD COUNT 10.1 K/mm3 (4.0-10.0)
[2021-09-08] MEDS: FUROSEMIDE 40 MG/4 ML INJECTABLE VIAL IVPUSH SCH (10:27)
[2021-09-08] MEDS: ASCORBIC ACID 500 MG TABLET (FP) PO SCH (10:30)
[2021-09-08] MEDS: PANTOPRAZOLE 20 MG TABLET PO SCH (10:31)
[2021-09-08] MEDS: FERROUS SO4 325 MG TABLET (FP) PO SCH ×2 (10:31→21:35)
[2021-09-08] MEDS: ACETAMINOPHEN 325 MG TABLET (FP) PO PRN ×2 (10:31→17:24)
[2021-09-08] MEDS: oxyCODONE HCL 5 MG TABLET PO PRN ×2 (10:32→17:24)
[2021-09-08] MEDS: FOLIC ACID 1 MG TABLET (FP) PO SCH (10:34)
[2021-09-08 10:58] LABS: ALBUMIN 1.1 g/dl (3.4-5.0); BLOOD UREA NITROGEN 17.8 mg/dL (7-18); CALCIUM 7.7 mg/dL (8.5-10.1)
[2021-09-08] MEDS: NYSTATIN POWDER 100,000 UNITS/GM - 15 GM TOPICAL POWDER TP SCH ×2 (11:01→21:30)
[2021-09-08 11:02] LABS: CREATININE 1.5 mg/dL (0.55-1.3)
[2021-09-08 11:04] LABS: BILIRUBIN,TOTAL 0.3 mg/dL (0.2-1)
[2021-09-08] MEDS: ERTAPENEM SODIUM 1 GM in SODIUM CHLORIDE 50 ML IVPB SCH (11:25)
[2021-09-08] MEDS: MINERAL OIL/PET HY-PHL TOPICAL OINTMENT 454 GM JAR TP SCH ×2 (14:42→21:35)
[2021-09-08] MEDS: SILVER SULFADIAZINE 1% TOP CREAM 50 GM JAR TP SCH (16:42)
[2021-09-09] MEDS: GABAPENTIN 300 MG CAPSULE PO SCH ×3 (05:52→22:26)
[2021-09-09] MEDS: INSULIN SLIDING SCALE (NOVOLOG) 1 VIAL SQ SCH ×4 (06:00→22:32)
[2021-09-09] MEDS: ERTAPENEM SODIUM 1 GM in SODIUM CHLORIDE 50 ML IVPB SCH ×2 (09:38→11:34)
[2021-09-09] MEDS: FERROUS SO4 325 MG TABLET (FP) PO SCH ×2 (09:39→22:26)
[2021-09-09] MEDS: NYSTATIN POWDER 100,000 UNITS/GM - 15 GM TOPICAL POWDER TP SCH ×2 (09:39→22:32)
[2021-09-09] MEDS: MINERAL OIL/PET HY-PHL TOPICAL OINTMENT 454 GM JAR TP SCH ×2 (09:39→22:26)
[2021-09-09] MEDS: PANTOPRAZOLE 20 MG TABLET PO SCH (09:39)
[2021-09-09] MEDS: SILVER SULFADIAZINE 1% TOP CREAM 50 GM JAR TP SCH (09:39)
[2021-09-09] MEDS: ASCORBIC ACID 500 MG TABLET (FP) PO SCH (09:39)
[2021-09-09] MEDS: FOLIC ACID 1 MG TABLET (FP) PO SCH (09:39)
[2021-09-09] MEDS: FUROSEMIDE 40 MG/4 ML INJECTABLE VIAL IVPUSH SCH ×2 (09:39→11:47)
[2021-09-09 11:41] LABS: BASO % 0.8 % (0-2.0); EOS % 5.6 % (0-4.5); HEMATOCRIT 26.1 % (32.4-45.2); HEMOGLOBIN 8.5 GM/dL (10.7-15.3); MCH 25.3 pg (25.7-33.7); MCHC 32.6 g/dl (32.0-36.0); MEAN CELL VOLUME 77.6 fl (80-96); MEAN PLT VOLUME 7.2 fl (7.5-11.1); NEUT % 66.6 % (42.8-82.8); PLATELET COUNT 453 10^3/uL (134-434); RBC 3.36 M/mm3 (3.60-5.2); RDW 19.9 % (11.6-15.6); WHITE BLOOD COUNT 10.9 K/mm3 (4.0-10.0)
[2021-09-09 12:04] LABS: ALBUMIN 1.3 g/dl (3.4-5.0); CALCIUM 8.3 mg/dL (8.5-10.1)
[2021-09-09 12:05] LABS: BLOOD UREA NITROGEN 13.3 mg/dL (7-18)
[2021-09-09 12:08] LABS: CREATININE 1.3 mg/dL (0.55-1.3)
[2021-09-09 12:09] LABS: BILIRUBIN,TOTAL 0.3 mg/dL (0.2-1); TOT PROT 7.7 g/dl (6.4-8.2)
[2021-09-09] MEDS: ACETAMINOPHEN 325 MG TABLET (FP) PO PRN (14:46)
[2021-09-09] MEDS: oxyCODONE HCL 5 MG TABLET PO PRN (17:42)
[2021-09-10] MEDS: GABAPENTIN 300 MG CAPSULE PO SCH ×3 (06:04→21:39)
[2021-09-10] MEDS: oxyCODONE HCL 5 MG TABLET PO PRN (06:05)
[2021-09-10] MEDS: INSULIN SLIDING SCALE (NOVOLOG) 1 VIAL SQ SCH ×4 (06:08→21:39)
[2021-09-10] MEDS ORDERED: PT OWN MED DRAWER 7, Y5N ONE (10:18)
[2021-09-10] MEDS: FERROUS SO4 325 MG TABLET (FP) PO SCH ×2 (10:21→21:39)
[2021-09-10] MEDS: FOLIC ACID 1 MG TABLET (FP) PO SCH (10:22)
[2021-09-10] MEDS: FUROSEMIDE 40 MG TABLET (FP) PO SCH (10:22)
[2021-09-10] MEDS: PANTOPRAZOLE 20 MG TABLET PO SCH (10:23)
[2021-09-10] MEDS: MINERAL OIL/PET HY-PHL TOPICAL OINTMENT 454 GM JAR TP SCH ×2 (10:23→21:40)
[2021-09-10] MEDS: ASCORBIC ACID 500 MG TABLET (FP) PO SCH (10:23)
[2021-09-10] MEDS: NYSTATIN POWDER 100,000 UNITS/GM - 15 GM TOPICAL POWDER TP SCH ×2 (10:23→21:40)
[2021-09-10] MEDS: SILVER SULFADIAZINE 1% TOP CREAM 50 GM JAR TP SCH (10:23)
[2021-09-10] MEDS ORDERED: INSULIN (NOVOLOG) ASPART 100 UNITS/ML 10ML VIAL ONE (11:21)
[2021-09-11] MEDS: GABAPENTIN 300 MG CAPSULE PO SCH ×3 (05:46→21:56)
[2021-09-11] MEDS: INSULIN SLIDING SCALE (NOVOLOG) 1 VIAL SQ SCH ×4 (06:03→21:56)
[2021-09-11] MEDS ORDERED: IRON SUCROSE INJECTION 200 MG in SODIUM CHLORIDE 90 ML IVPB ONE (08:30)
[2021-09-11] MEDS: FUROSEMIDE 40 MG TABLET (FP) PO SCH (10:32)
[2021-09-11] MEDS: FERROUS SO4 325 MG TABLET (FP) PO SCH ×2 (10:32→21:56)
[2021-09-11] MEDS: ACETAMINOPHEN 325 MG TABLET (FP) PO PRN ×2 (10:32→17:21)
[2021-09-11] MEDS: PANTOPRAZOLE 20 MG TABLET PO SCH (10:33)
[2021-09-11] MEDS: oxyCODONE HCL 5 MG TABLET PO PRN ×2 (10:33→17:20)
[2021-09-11] MEDS: ASCORBIC ACID 500 MG TABLET (FP) PO SCH (10:33)
[2021-09-11] MEDS: FOLIC ACID 1 MG TABLET (FP) PO SCH (10:34)
[2021-09-11] MEDS: NYSTATIN POWDER 100,000 UNITS/GM - 15 GM TOPICAL POWDER TP SCH ×2 (10:38→21:56)
[2021-09-11 11:23] LABS: EOS % 10.3 % (0-4.5); HEMATOCRIT 26.1 % (32.4-45.2); HEMOGLOBIN 8.4 GM/dL (10.7-15.3); LYMPH % 26.8 % (8-40); MCH 24.7 pg (25.7-33.7); MCHC 32.2 g/dl (32.0-36.0); MEAN CELL VOLUME 76.8 fl (80-96); MEAN PLT VOLUME 6.9 fl (7.5-11.1); MONO % 10.2 % (3.8-10.2); NEUT % 51.7 % (42.8-82.8); PLATELET COUNT 467 10^3/uL (134-434); RDW 21.6 % (11.6-15.6); WHITE BLOOD COUNT 8.3 K/mm3 (4.0-10.0)
[2021-09-11 11:48] LABS: ANISOCYTOSIS 1+; MACROCYTOSIS 0; PLATELET ESTIMATE NORMAL; TARGET CELLS 1+
[2021-09-11] MEDS: SILVER SULFADIAZINE 1% TOP CREAM 50 GM JAR TP SCH (13:23)
[2021-09-11] MEDS: MINERAL OIL/PET HY-PHL TOPICAL OINTMENT 454 GM JAR TP SCH ×2 (13:23→21:56)
[2021-09-12] MEDS: GABAPENTIN 300 MG CAPSULE PO SCH ×3 (05:27→21:11)
[2021-09-12] MEDS: INSULIN SLIDING SCALE (NOVOLOG) 1 VIAL SQ SCH ×4 (06:01→21:11)
[2021-09-12] MEDS: FUROSEMIDE 40 MG TABLET (FP) PO SCH (09:41)
[2021-09-12] MEDS: PANTOPRAZOLE 20 MG TABLET PO SCH (09:41)
[2021-09-12] MEDS: ASCORBIC ACID 500 MG TABLET (FP) PO SCH (09:41)
[2021-09-12] MEDS: FOLIC ACID 1 MG TABLET (FP) PO SCH (09:42)
[2021-09-12] MEDS: SILVER SULFADIAZINE 1% TOP CREAM 50 GM JAR TP SCH (09:42)
[2021-09-12] MEDS: FERROUS SO4 325 MG TABLET (FP) PO SCH ×2 (09:42→21:11)
[2021-09-12] MEDS: MINERAL OIL/PET HY-PHL TOPICAL OINTMENT 454 GM JAR TP SCH ×2 (09:42→21:11)
[2021-09-12] MEDS: NYSTATIN POWDER 100,000 UNITS/GM - 15 GM TOPICAL POWDER TP SCH ×2 (09:42→21:12)
[2021-09-13] MEDS: GABAPENTIN 300 MG CAPSULE PO SCH (05:41)
[2021-09-13] MEDS: INSULIN SLIDING SCALE (NOVOLOG) 1 VIAL SQ SCH (06:01)
[2021-09-13 10:34] VITALS: BP 137/55; PULSE 104; TEMP 97.9
== END 2021-09-13 11:25 | DRG 755 ==
LOC: JER 18:44 → JERBED 09-06 02:00 → J8W 09-06 13:08
PROVIDERS: ATTEND Family Medicine
PROC: 30233N1 Transfusion of Nonautologous Red Blood Cells into Peripheral Vein, Percutaneous Approach (ICD-10-PCS; principal; 2021-09-06)
DX: C54.1 Malignant neoplasm of endometrium (principal); N17.9 Acute kidney failure, unspecified; I50.32 Chronic diastolic (congestive) heart failure; E87.2 Acidosis; Z68.41 Body mass index [BMI] 40.0-44.9, adult; E87.3 Alkalosis; L02.818 Cutaneous abscess of other sites; I11.0 Hypertensive heart disease with heart failure; E66.01 Morbid (severe) obesity due to excess calories; D63.0 Anemia in neoplastic disease; J45.30 Mild persistent asthma, uncomplicated; R50.9 Fever, unspecified; D72.829 Elevated white blood cell count, unspecified; E78.5 Hyperlipidemia, unspecified; R21 Rash and other nonspecific skin eruption; K59.00 Constipation, unspecified; E11.9 Type 2 diabetes mellitus without complications; K76.0 Fatty (change of) liver, not elsewhere classified; K21.9 Gastro-esophageal reflux disease without esophagitis; K42.9 Umbilical hernia without obstruction or gangrene; F32.A Depression, unspecified; R11.2 Nausea with vomiting, unspecified; Z86.718 Personal history of other venous thrombosis and embolism
CPT/HCPCS: 36415; 36430; 36511; 36600; 76775-TC; 80053; 81003; 82272; 82728; 82803; 82962; 83540; 83550; 83605; 83690; 85025; 85045; 85610; 85730; 86304; 86850; 86900; 86901; 86922; 87040; 87086; 87804; 87807; 93005; 93010; 99285-25; C9803; J1756; P9038; P9058; U0003; U0005

== ENCOUNTER 2022-09-13 19:38 | Inpatient (IN) | payer OTHER ==
[2022-09-13] MEDS ORDERED: ACETAMINOPHEN 1000 MG/100 ML BAG IVPB ONE (20:24)
[2022-09-13] MEDS ORDERED: LACTATED RINGERS SOLUTION 1000 ML INFUS.BAG IV ONE ×2 (20:24→23:00)
[2022-09-13] MEDS ORDERED: ACETAMINOPHEN INJECTION 100 ML IVPB ONE (20:42)
[2022-09-13] MEDS ORDERED: VANCOMYCIN 1 GM in D5W (PRE-DOCKED) 1,000 MG/250 ML IVPB ONE (21:02)
[2022-09-13] MEDS ORDERED: CEFEPIME HCL/D5W 2 GM/50 ML BAG IVPB ONE (21:03)
[2022-09-13] MEDS ORDERED: VANCOMYCIN/WATER FOR INJ (PEG) 1,000 MG/200 ML BAG IVPB ONE (21:16)
[2022-09-13] MEDS ORDERED: CEFEPIME 1 GM/100 ML BAG IVPB ONE ×2 (21:16→21:25)
[2022-09-13] MEDS ORDERED: CEFEPIME 2 GM/100 ML BAG IVPB ONE (21:26)
[2022-09-13 21:38] LABS: BASO % 0.5 % (0-2.0); HEMATOCRIT 45.9 % (32.4-45.2); LYMPH % 5.3 % (8-40); MCHC 30.5 g/dl (32.0-36.0); MEAN PLT VOLUME 9.8 fl (7.5-11.1); MONO % 8.6 % (3.8-10.2); NEUT % 85.6 % (42.8-82.8); PLATELET COUNT 179 10^3/uL (134-434); RBC 5.61 M/mm3 (3.60-5.2); RDW 18.9 % (11.6-15.6); WHITE BLOOD COUNT 26.6 K/mm3 (4.0-10.0)
[2022-09-13 21:44] LABS: INR 1.47 (0.83-1.09)
[2022-09-13 21:51] LABS: VENOUS BASE EXCESS 6.7 mmol/L (-2-2); VENOUS O2 SATURATION 96.4 % (70-80); VENOUS PCO2 54.2 mmHg (38-52); VENOUS PH 7.404 (7.310-7.410)
[2022-09-13 22:03] LABS: CHLORIDE 99 mmol/L (98-107); SODIUM 139 mmol/L (136-145)
[2022-09-13 22:04] LABS: LACTIC ACID 2.1 mmol/L (0.4-2.0)
[2022-09-13 22:05] LABS: CALCIUM 8.7 mg/dL (8.5-10.1)
[2022-09-13 22:15] LABS: ALBUMIN 2.5 g/dl (3.4-5.0); ALK PHOS 123 U/L (45-117); ANION GAP 14 MMOL/L (8-16); BILIRUBIN,TOTAL 1.4 mg/dL (0.2-1); BLOOD UREA NITROGEN 25.3 mg/dL (7-18); CO2 25 mmol/L (21-32); GLUCOSE,RANDOM 151 mg/dL (74-106); SGOT/AST 31 U/L (15-37); SGPT/ALT 16 U/L (13-61); TOT PROT 8.1 g/dl (6.4-8.2)
[2022-09-13 22:26] LABS: ANISOCYTOSIS 3+; MACROCYTOSIS 0; OVALOCYTE 1+
[2022-09-13] MEDS ORDERED: IBUPROFEN 800 MG/8 ML IJ IVPB ONE ×2 (23:02→23:04)
[2022-09-14] MEDS ORDERED: SODIUM CHLORIDE 0.9% 500 ML INFUS.BAG IV ONE (00:43)
[2022-09-14] MEDS ORDERED: morphine CARPU-JECT 4 MG/1 ML DISP.SYRIN IVPUSH ONE (01:42)
[2022-09-14] MEDS ORDERED: morphine SULFATE 4 MG/ML VIAL ONE (01:43)
[2022-09-14] MEDS ORDERED: FUROSEMIDE 40 MG/4 ML INJECTABLE VIAL IVPUSH ONE (05:07)
[2022-09-14 05:17] LABS: ARTERIAL BLD GAS O2 SATURATION 97.1 % (95-98); ARTERIAL BLOOD GAS BASE EXCESS 0.8 mmol/L (-2-2); ARTERIAL BLOOD GAS PO2 108.7 mmHg (80-100); ARTERIAL BLOOD GAS pH 7.263 (7.350-7.450)
[2022-09-14 05:19] LABS: ALLENS TEST POSITIVE
[2022-09-14] MEDS ORDERED: ALBUTEROL SO4 2.5/IPRATROPIUM 0.5 INH SOL 3 ML VIAL.NEB. NEB PRN (05:23)
[2022-09-14 07:27] LABS: CREATININE 2.6 mg/dL (0.55-1.3)
[2022-09-14 07:29] LABS: BILIRUBIN,TOTAL 1.3 mg/dL (0.2-1); HEMATOCRIT 38.2 % (32.4-45.2); HEMOGLOBIN 11.7 GM/dL (10.7-15.3); MCH 25.4 pg (25.7-33.7); MCHC 30.7 g/dl (32.0-36.0); MEAN CELL VOLUME 82.8 fl (80-96); MEAN PLT VOLUME 9.3 fl (7.5-11.1); PLATELET COUNT 159 10^3/uL (134-434); RBC 4.61 M/mm3 (3.60-5.2); RDW 18.9 % (11.6-15.6); TOT PROT 6.6 g/dl (6.4-8.2); WHITE BLOOD COUNT 25.7 K/mm3 (4.0-10.0)
[2022-09-14 08:21] LABS: N-TERMINAL BNP 4933.2 pg/ml (5-125)
[2022-09-14 08:52] LABS: ANISOCYTOSIS 1+; MACROCYTOSIS 0; PLATELET ESTIMATE DECREASED
[2022-09-14] MEDS ORDERED: PANTOPRAZOLE 40 MG TABLET PO ONE (10:49)
[2022-09-14] MEDS ORDERED: FOLIC ACID 1 MG TABLET (FP) ONE (10:49)
[2022-09-14] MEDS ORDERED: APIXABAN 5 MG TABLET ONE (10:49)
[2022-09-14] MEDS ORDERED: FUROSEMIDE 40 MG/4 ML INJECTABLE VIAL ONE (10:49)
[2022-09-14] MEDS ORDERED: FUROSEMIDE 40 MG TABLET (FP) ONE (10:52)
[2022-09-14] MEDS ORDERED: ASCORBIC ACID 500 MG TABLET (FP) ONE (10:52)
[2022-09-14] MEDS: APIXABAN 5 MG TABLET PO SCH (11:02)
[2022-09-14] MEDS: PANTOPRAZOLE 40 MG TABLET PO SCH (11:02)
[2022-09-14] MEDS: FOLIC ACID 1 MG TABLET (FP) PO SCH (11:02)
[2022-09-14] MEDS: ASCORBIC ACID 500 MG TABLET (FP) PO SCH (11:02)
[2022-09-14] MEDS: MEROPENEM 500 MG in DEXTROSE 5%-WATER 100 ML IVPB SCH (12:15)
[2022-09-14] MEDS ORDERED: MEROPENEM 500 MG VIAL (RESTRICTED TO ID) IVPB ONE (12:24)
[2022-09-14] MEDS: NYSTATIN 100000 UNIT/GM TOPICAL OINTMENT 15 GM TUBE TP SCH (12:25)
[2022-09-14] MEDS: BUDESONIDE/FORMETEROL FUMARATE 160/4.5 mcg INHALER IH SCH ×2 (12:25→23:00)
[2022-09-14] MEDS: INSULIN SLIDING SCALE (NOVOLOG) 1 VIAL SQ SCH (16:47)
[2022-09-14] MEDS ORDERED: ACETAMINOPHEN 1000 MG/100 ML BAG IVPB ONE (20:03)
[2022-09-14 20:35] LABS: ARTERIAL BLD GAS O2 SATURATION 96.7 % (95-98); ARTERIAL BLOOD GAS BASE EXCESS 0.4 mmol/L (-2-2); ARTERIAL BLOOD GAS PO2 92.2 mmHg (80-100); ARTERIAL BLOOD GAS pH 7.357 (7.350-7.450)
[2022-09-14 20:37] LABS: ALLENS TEST POSITIVE; VENT MODE S/T
[2022-09-14 20:38] LABS: VENT RATE 20
[2022-09-14 21:34] LABS: EPI CELLS >36 /uL (0-25.1); HYALINE CASTS 78 /uL (0-3.1); PH,URINE 6.5 (5.0-8.0); URINE APPEARANCE TURBID; URINE BACTERIA 2562 /uL (0-1359); URINE BILIRUBIN 1+ (NEGATIVE); URINE COLOR ORANGE; URINE GLUCOSE (UA) NEGATIVE (NEGATIVE); URINE KETONE TRACE (NEGATIVE); URINE LEUK ESTERASE 3+ (NEGATIVE); URINE NITRITE POSITIVE (NEGATIVE); URINE PROTEIN 3+ (NEGATIVE); URINE WBC 29506 /uL (0-25.8)
[2022-09-14 22:16] LABS: URINE RBC 1308.4 /uL (0-23.9)
[2022-09-14 22:17] LABS: YEAST NONE SEEN (NEGATIVE)
[2022-09-15] MEDS ORDERED: MEROPENEM 500 MG VIAL (RESTRICTED TO ID) IVPB ONE ×2 (02:56→11:10)
[2022-09-15] MEDS ORDERED: APIXABAN 5 MG TABLET ONE ×2 (02:59→09:45)
[2022-09-15] MEDS: APIXABAN 5 MG TABLET PO SCH ×3 (03:05→22:46)
[2022-09-15] MEDS: MEROPENEM 500 MG in DEXTROSE 5%-WATER 100 ML IVPB SCH ×3 (03:36→23:02)
[2022-09-15] MEDS: INSULIN SLIDING SCALE (NOVOLOG) 1 VIAL SQ SCH ×5 (03:36→23:00)
[2022-09-15] MEDS: NYSTATIN 100000 UNIT/GM TOPICAL OINTMENT 15 GM TUBE TP SCH ×2 (03:38→16:50)
[2022-09-15] MEDS ORDERED: ACETAMINOPHEN 325 MG TABLET (FP) ONE ×3 (04:20→17:05)
[2022-09-15] MEDS: ACETAMINOPHEN 325 MG TABLET (FP) PO PRN ×2 (04:24→11:40)
[2022-09-15 07:57] LABS: HEMATOCRIT 34.4 % (32.4-45.2); HEMOGLOBIN 10.7 GM/dL (10.7-15.3); MCH 25.6 pg (25.7-33.7); MCHC 31.1 g/dl (32.0-36.0); MEAN CELL VOLUME 82.1 fl (80-96); MEAN PLT VOLUME 9.7 fl (7.5-11.1); PLATELET COUNT 136 10^3/uL (134-434); RBC 4.19 M/mm3 (3.60-5.2); RDW 18.7 % (11.6-15.6); WHITE BLOOD COUNT 23.5 K/mm3 (4.0-10.0)
[2022-09-15 08:18] LABS: CALCIUM 7.9 mg/dL (8.5-10.1)
[2022-09-15 08:19] LABS: ALBUMIN 1.8 g/dl (3.4-5.0); BLOOD UREA NITROGEN 42.8 mg/dL (7-18); MAGNESIUM 1.9 mg/dL (1.8-2.4)
[2022-09-15 08:22] LABS: CREATININE 3.2 mg/dL (0.55-1.3); PHOSPHOROUS 3.9 mg/dL (2.5-4.9)
[2022-09-15 08:24] LABS: BILIRUBIN,TOTAL 1.7 mg/dL (0.2-1); TOT PROT 6.3 g/dl (6.4-8.2)
[2022-09-15 08:46] LABS: ANISOCYTOSIS 0; HELMET CELLS 0; HOWELL-JOLLY BODIES 0; MACROCYTOSIS 0; OVALOCYTE 0; ROULEAU 0; SICKELED CELLS 0; TARGET CELLS 0; TEAR DROP CELLS 0; TOXIC GRANULATION 0
[2022-09-15] MEDS ORDERED: ASCORBIC ACID 500 MG TABLET (FP) ONE (09:45)
[2022-09-15] MEDS ORDERED: PANTOPRAZOLE 40 MG TABLET PO ONE (09:45)
[2022-09-15] MEDS ORDERED: FOLIC ACID 1 MG TABLET (FP) ONE (09:45)
[2022-09-15] MEDS: BUDESONIDE/FORMETEROL FUMARATE 160/4.5 mcg INHALER IH SCH (09:55)
[2022-09-15] MEDS: FOLIC ACID 1 MG TABLET (FP) PO SCH (09:55)
[2022-09-15] MEDS: PANTOPRAZOLE 40 MG TABLET PO SCH (09:55)
[2022-09-15] MEDS: ASCORBIC ACID 500 MG TABLET (FP) PO SCH (09:55)
[2022-09-15] MEDS: SODIUM CHLORIDE 1,000 ML IV SCH (14:58)
[2022-09-15] MEDS ORDERED: ACETAMINOPHEN INJECTION 100 ML IVPB ONE (22:42)
[2022-09-15] MEDS ORDERED: FENTANYL CITRATE/PF 50 MCG/ML VIAL IVPUSH ONE (23:00)
[2022-09-15] MEDS: ACETAMINOPHEN 1000 MG/100 ML BAG IVPB PRN (23:03)
[2022-09-16] MEDS ORDERED: SODIUM CHLORIDE 0.9% 500 ML INFUS.BAG IV ONE ×2 (00:49→01:20)
[2022-09-16] MEDS: NYSTATIN 100000 UNIT/GM TOPICAL OINTMENT 15 GM TUBE TP SCH ×3 (00:59→21:23)
[2022-09-16] MEDS: MUPIROCIN 2% TOPICAL OINTMENT FOR DECOLONIZATION NS SCH ×3 (01:00→21:22)
[2022-09-16] MEDS: BUDESONIDE/FORMETEROL FUMARATE 160/4.5 mcg INHALER IH SCH ×3 (01:00→22:17)
[2022-09-16 01:17] LABS: INR 2.17 (0.83-1.09); PROTHROMBIN TIME (PATIENT) 25.1 SEC (9.7-13.0)
[2022-09-16 01:20] LABS: ACTIVATED PTT 31.2 SECONDS (25.2-36.5)
[2022-09-16] MEDS ORDERED: NOREPINEPHRINE BITARTRATE 4 MG/4 ML ML IV ONE ×3 (01:21→18:10)
[2022-09-16] MEDS ORDERED: PHYTONADIONE 10 MG/1 ML AMP IVPB ONE (01:23)
[2022-09-16 01:26] LABS: CALCIUM 7.9 mg/dL (8.5-10.1)
[2022-09-16 01:27] LABS: ALBUMIN 1.8 g/dl (3.4-5.0); BLOOD UREA NITROGEN 50.3 mg/dL (7-18); MAGNESIUM 1.7 mg/dL (1.8-2.4)
[2022-09-16 01:30] LABS: CREATININE 3.1 mg/dL (0.55-1.3); PHOSPHOROUS 3.8 mg/dL (2.5-4.9)
[2022-09-16] MEDS ORDERED: NOREPINEPHRINE BITARTRATE 16,000 MCG in SODIUM CHLORIDE 484 ML IV SCH (01:30)
[2022-09-16 01:31] LABS: TOT PROT 6.2 g/dl (6.4-8.2)
[2022-09-16 01:32] LABS: BILIRUBIN,TOTAL 1.9 mg/dL (0.2-1)
[2022-09-16 02:08] LABS: HEMATOCRIT 35.7 % (32.4-45.2); HEMOGLOBIN 10.8 GM/dL (10.7-15.3); MCH 25.1 pg (25.7-33.7); MCHC 30.2 g/dl (32.0-36.0); MEAN CELL VOLUME 83.2 fl (80-96); MEAN PLT VOLUME 9.6 fl (7.5-11.1); PLATELET COUNT 133 10^3/uL (134-434); RBC 4.28 M/mm3 (3.60-5.2); RDW 19.3 % (11.6-15.6); WHITE BLOOD COUNT 17.8 K/mm3 (4.0-10.0)
[2022-09-16 02:11] LABS: ADD RBC MORPHOLOGY YES
[2022-09-16 05:48] LABS: ARTERIAL BLD GAS O2 SATURATION 93.9 % (95-98); ARTERIAL BLOOD GAS BASE EXCESS -7.1 mmol/L (-2-2); ARTERIAL BLOOD GAS PO2 81.9 mmHg (80-100); ARTERIAL BLOOD GAS pH 7.228 (7.350-7.450)
[2022-09-16] MEDS ORDERED: VASOPRESSIN 20 UNITS/ML VIAL IV ONE ×2 (06:23→06:49)
[2022-09-16] MEDS ORDERED: ETOMIDATE 20 MG/10 ML VIAL IVPUSH ONE (06:28)
[2022-09-16] MEDS ORDERED: EPINEPHrine/PF 1 MG/1 ML (1:1,000) AMPULE ONE (06:30)
[2022-09-16] MEDS: INSULIN SLIDING SCALE (NOVOLOG) 1 VIAL SQ SCH ×4 (06:31→22:17)
[2022-09-16] MEDS ORDERED: ROCURONIUM BROMIDE 50 MG/5 ML SYRINGE ONE ×2 (06:38)
[2022-09-16] MEDS ORDERED: FENTANYL CITRATE/PF 50 MCG/ML VIAL ONE ×2 (07:21→07:47)
[2022-09-16 07:28] LABS: ANISOCYTOSIS 2+; MACROCYTOSIS 1+
[2022-09-16 07:32] LABS: HEMATOCRIT 36.2 % (32.4-45.2); HEMOGLOBIN 10.9 GM/dL (10.7-15.3); MCH 25.3 pg (25.7-33.7); MCHC 30.3 g/dl (32.0-36.0); MEAN CELL VOLUME 83.8 fl (80-96); MEAN PLT VOLUME 9.9 fl (7.5-11.1); PLATELET COUNT 152 10^3/uL (134-434); RBC 4.32 M/mm3 (3.60-5.2); RDW 18.9 % (11.6-15.6); WHITE BLOOD COUNT 27.8 K/mm3 (4.0-10.0)
[2022-09-16 07:47] LABS: CALCIUM 7.8 mg/dL (8.5-10.1)
[2022-09-16 07:48] LABS: ALBUMIN 1.7 g/dl (3.4-5.0); MAGNESIUM 1.7 mg/dL (1.8-2.4)
[2022-09-16 07:51] LABS: CREATININE 2.9 mg/dL (0.55-1.3); PHOSPHOROUS 4.3 mg/dL (2.5-4.9)
[2022-09-16 07:53] LABS: BILIRUBIN,TOTAL 1.8 mg/dL (0.2-1); TOT PROT 6.2 g/dl (6.4-8.2)
[2022-09-16] MEDS ORDERED: DEXMEDETOMIDINE PREMIX 400 MCG/100 ML BAG IVPB SCH (08:30)
[2022-09-16] MEDS: APIXABAN 5 MG TABLET PO SCH (09:19)
[2022-09-16] MEDS: FOLIC ACID 1 MG TABLET (FP) PO SCH (09:20)
[2022-09-16] MEDS: ASCORBIC ACID 500 MG TABLET (FP) PO SCH (09:20)
[2022-09-16] MEDS: PANTOPRAZOLE 40 MG TABLET PO SCH (09:20)
[2022-09-16 09:43] LABS: ANISOCYTOSIS 1+; MACROCYTOSIS 0; PLATELET ESTIMATE DECREASED
[2022-09-16] MEDS ORDERED: FUROSEMIDE 40 MG TABLET (FP) PO SCH (10:00)
[2022-09-16] MEDS ORDERED: MUPIROCIN 2% TOPICAL OINTMENT FOR DECOLONIZATION NS SCH (10:00)
[2022-09-16] MEDS ORDERED: ENOXAPARIN NA (PORCINE) 120 MG/0.8 ML DISP.SYRIN SQ SCH ×2 (10:45→18:00)
[2022-09-16] MEDS: MEROPENEM 500 MG in DEXTROSE 5%-WATER 100 ML IVPB SCH (12:22)
[2022-09-16] MEDS: SODIUM CHLORIDE 1,000 ML IV SCH ×2 (12:22→21:22)
[2022-09-16] MEDS ORDERED: PANTOPRAZOLE SODIUM 40 MG VIAL IVPUSH SCH (12:30)
[2022-09-16] MEDS: ACETAMINOPHEN 1000 MG/100 ML BAG IVPB PRN (18:05)
[2022-09-16] MEDS ORDERED: ACETAMINOPHEN 325 MG TABLET (FP) PO PRN (19:22)
[2022-09-16] MEDS ORDERED: ACETAMINOPHEN 1000 MG/100 ML BAG IVPB PRN (19:22)
[2022-09-16] MEDS ORDERED: ALBUTEROL SO4 2.5/IPRATROPIUM 0.5 INH SOL 3 ML VIAL.NEB. NEB PRN (19:22)
[2022-09-16] MEDS: DEXMEDETOMIDINE PREMIX 400 MCG/100 ML BAG IVPB SCH (20:01)
[2022-09-16] MEDS: NOREPINEPHRINE BITARTRATE 16,000 MCG in SODIUM CHLORIDE 484 ML IV SCH ×2 (20:04→22:17)
[2022-09-16] MEDS: CHLORHEXIDINE GLUCONATE 4% CLEANSER FOR DECOLONIZATION TP SCH (21:23)
[2022-09-16] MEDS ORDERED: CHLORHEXIDINE GLUCONATE 4% CLEANSER FOR DECOLONIZATION TP SCH ×2 (22:00)
[2022-09-16] MEDS ORDERED: MEROPENEM 500 MG in DEXTROSE 5%-WATER 100 ML IVPB SCH (23:15)
[2022-09-17] MEDS: SODIUM CHLORIDE 1,000 ML IV SCH (01:13)
[2022-09-17] MEDS: DEXMEDETOMIDINE PREMIX 400 MCG/100 ML BAG IVPB SCH (01:15)
[2022-09-17] MEDS ORDERED: ENOXAPARIN NA (PORCINE) 120 MG/0.8 ML DISP.SYRIN SQ SCH (06:00)
[2022-09-17] MEDS: INSULIN SLIDING SCALE (NOVOLOG) 1 VIAL SQ SCH ×3 (06:42→17:36)
[2022-09-17] MEDS ORDERED: DEXMEDETOMIDINE PREMIX 400 MCG/100 ML BAG IVPB SCH (08:45)
[2022-09-17 08:52] LABS: BASO % 0.4 % (0-2.0); EOS % 4.9 % (0-4.5); HEMATOCRIT 35.8 % (32.4-45.2); HEMOGLOBIN 10.8 GM/dL (10.7-15.3); LYMPH % 6.1 % (8-40); MCH 24.9 pg (25.7-33.7); MCHC 30.1 g/dl (32.0-36.0); MEAN CELL VOLUME 82.7 fl (80-96); MEAN PLT VOLUME 9.8 fl (7.5-11.1); NEUT % 81.6 % (42.8-82.8); PLATELET COUNT 143 10^3/uL (134-434); RBC 4.33 M/mm3 (3.60-5.2); RDW 19.4 % (11.6-15.6); WHITE BLOOD COUNT 17.8 K/mm3 (4.0-10.0)
[2022-09-17] MEDS: MUPIROCIN 2% TOPICAL OINTMENT FOR DECOLONIZATION NS SCH ×2 (09:07→21:41)
[2022-09-17] MEDS: BUDESONIDE/FORMETEROL FUMARATE 160/4.5 mcg INHALER IH SCH ×2 (09:08→21:41)
[2022-09-17] MEDS: NYSTATIN 100000 UNIT/GM TOPICAL OINTMENT 15 GM TUBE TP SCH ×2 (09:08→21:41)
[2022-09-17] MEDS: ASCORBIC ACID 500 MG TABLET (FP) PO SCH (09:08)
[2022-09-17] MEDS: FOLIC ACID 1 MG TABLET (FP) PO SCH (09:08)
[2022-09-17] MEDS: PANTOPRAZOLE SODIUM 40 MG VIAL IVPUSH SCH (09:08)
[2022-09-17 09:16] LABS: ALBUMIN 1.4 g/dl (3.4-5.0); BLOOD UREA NITROGEN 44.4 mg/dL (7-18); CALCIUM 8.1 mg/dL (8.5-10.1); MAGNESIUM 1.9 mg/dL (1.8-2.4)
[2022-09-17 09:20] LABS: CREATININE 2.1 mg/dL (0.55-1.3)
[2022-09-17 09:21] LABS: BILIRUBIN,TOTAL 1.7 mg/dL (0.2-1); TOT PROT 5.5 g/dl (6.4-8.2)
[2022-09-17] MEDS ORDERED: VANCOMYCIN/WATER FOR INJ (PEG) 1,000 MG/200 ML BAG IVPB ONE (10:45)
[2022-09-17] MEDS: CEFAZOLIN 1 GM in DEXTROSE 5%-WATER - 50 ML IVPB SCH ×2 (11:00→19:00)
[2022-09-17] MEDS: SODIUM CHLORIDE 0.45% 1,000 ML IV SCH (19:03)
[2022-09-17] MEDS: ENOXAPARIN NA (PORCINE) 40 MG/0.4 ML DISP.SYRIN SQ SCH (21:41)
[2022-09-17] MEDS: CHLORHEXIDINE GLUCONATE 4% CLEANSER FOR DECOLONIZATION TP SCH (21:41)
[2022-09-18] MEDS: CEFAZOLIN 1 GM in DEXTROSE 5%-WATER - 50 ML IVPB SCH ×3 (02:28→18:24)
[2022-09-18] MEDS: INSULIN SLIDING SCALE (NOVOLOG) 1 VIAL SQ SCH ×2 (06:31→18:24)
[2022-09-18] MEDS ORDERED: METOPROLOL TARTRATE 5 MG/5 ML VIAL IVPUSH ONE (06:37)
[2022-09-18] MEDS: SODIUM CHLORIDE 0.45% 1,000 ML IV SCH ×3 (06:47→21:25)
[2022-09-18 08:37] LABS: HEMATOCRIT 37.2 % (32.4-45.2); HEMOGLOBIN 11.1 GM/dL (10.7-15.3); MCH 24.7 pg (25.7-33.7); MCHC 29.7 g/dl (32.0-36.0); MEAN CELL VOLUME 83.2 fl (80-96); PLATELET COUNT 165 10^3/uL (134-434); RBC 4.48 M/mm3 (3.60-5.2); RDW 19.2 % (11.6-15.6); WHITE BLOOD COUNT 14.6 K/mm3 (4.0-10.0)
[2022-09-18 09:03] LABS: CALCIUM 8.6 mg/dL (8.5-10.1)
[2022-09-18 09:04] LABS: BLOOD UREA NITROGEN 43.2 mg/dL (7-18)
[2022-09-18 09:07] LABS: CREATININE 1.8 mg/dL (0.55-1.3)
[2022-09-18] MEDS: ENOXAPARIN NA (PORCINE) 40 MG/0.4 ML DISP.SYRIN SQ SCH ×2 (09:12→21:24)
[2022-09-18] MEDS: NYSTATIN 100000 UNIT/GM TOPICAL OINTMENT 15 GM TUBE TP SCH ×2 (09:12→21:24)
[2022-09-18] MEDS: MUPIROCIN 2% TOPICAL OINTMENT FOR DECOLONIZATION NS SCH ×2 (09:12→21:24)
[2022-09-18] MEDS: FOLIC ACID 1 MG TABLET (FP) PO SCH (09:12)
[2022-09-18] MEDS: ASCORBIC ACID 500 MG TABLET (FP) PO SCH (09:13)
[2022-09-18] MEDS: PANTOPRAZOLE SODIUM 40 MG VIAL IVPUSH SCH (09:13)
[2022-09-18] MEDS: BUDESONIDE/FORMETEROL FUMARATE 160/4.5 mcg INHALER IH SCH ×2 (09:50→21:24)
[2022-09-18] MEDS: CHLORHEXIDINE GLUCONATE 4% CLEANSER FOR DECOLONIZATION TP SCH (21:24)
[2022-09-19] MEDS: CEFAZOLIN 1 GM in DEXTROSE 5%-WATER - 50 ML IVPB SCH ×2 (02:00→10:02)
[2022-09-19] MEDS: INSULIN SLIDING SCALE (NOVOLOG) 1 VIAL SQ SCH ×2 (07:00→17:34)
[2022-09-19] MEDS: FOLIC ACID 1 MG TABLET (FP) PO SCH (10:02)
[2022-09-19] MEDS: ASCORBIC ACID 500 MG TABLET (FP) PO SCH (10:02)
[2022-09-19] MEDS: ENOXAPARIN NA (PORCINE) 40 MG/0.4 ML DISP.SYRIN SQ SCH ×2 (10:02→21:49)
[2022-09-19] MEDS: PANTOPRAZOLE SODIUM 40 MG VIAL IVPUSH SCH (10:02)
[2022-09-19] MEDS: BUDESONIDE/FORMETEROL FUMARATE 160/4.5 mcg INHALER IH SCH ×2 (10:03→21:50)
[2022-09-19] MEDS: NYSTATIN 100000 UNIT/GM TOPICAL OINTMENT 15 GM TUBE TP SCH ×2 (10:03→21:49)
[2022-09-19] MEDS: MUPIROCIN 2% TOPICAL OINTMENT FOR DECOLONIZATION NS SCH ×2 (10:03→21:49)
[2022-09-19] MEDS ORDERED: ONDANSETRON 4 MG/2 ML VIAL IVPUSH ONE (11:14)
[2022-09-19] MEDS ORDERED: ONDANSETRON 4 MG/2 ML VIAL IVPUSH PRN (11:47)
[2022-09-19 15:02] VITALS: BMI 47.3
[2022-09-19] MEDS ORDERED: VANCOMYCIN/WATER FOR INJ (PEG) 1,000 MG/200 ML BAG IVPB ONE (16:02)
[2022-09-19] MEDS: CHLORHEXIDINE GLUCONATE 4% CLEANSER FOR DECOLONIZATION TP SCH (21:49)
[2022-09-20] MEDS: SODIUM CHLORIDE 0.45% 1,000 ML IV SCH ×2 (01:32→10:23)
[2022-09-20] MEDS: INSULIN SLIDING SCALE (NOVOLOG) 1 VIAL SQ SCH ×2 (06:14→17:06)
[2022-09-20 07:41] LABS: CHLORIDE 114 mmol/L (98-107); SODIUM 148 mmol/L (136-145)
[2022-09-20 07:43] LABS: CALCIUM 8.4 mg/dL (8.5-10.1)
[2022-09-20 07:44] LABS: ALBUMIN 1.6 g/dl (3.4-5.0); ANION GAP 6 MMOL/L (8-16); BLOOD UREA NITROGEN 31.2 mg/dL (7-18); CO2 28 mmol/L (21-32); GLUCOSE,RANDOM 105 mg/dL (74-106)
[2022-09-20 07:47] LABS: CREATININE 1.5 mg/dL (0.55-1.3); SGOT/AST 13 U/L (15-37)
[2022-09-20 07:49] LABS: BILIRUBIN,TOTAL 0.7 mg/dL (0.2-1); TOT PROT 6.1 g/dl (6.4-8.2)
[2022-09-20 07:50] LABS: ALK PHOS 81 U/L (45-117)
[2022-09-20 07:56] LABS: SGPT/ALT < 6 U/L (13-61)
[2022-09-20] MEDS ORDERED: ALBUTEROL SO4 2.5/IPRATROPIUM 0.5 INH SOL 3 ML VIAL.NEB. NEB PRN (09:12)
[2022-09-20] MEDS: ACETAMINOPHEN 325 MG TABLET (FP) PO PRN (10:24)
[2022-09-20] MEDS: ASCORBIC ACID 500 MG TABLET (FP) PO SCH (10:24)
[2022-09-20] MEDS: FOLIC ACID 1 MG TABLET (FP) PO SCH (10:24)
[2022-09-20] MEDS: CEFTRIAXONE 1 GM in DEXTROSE 5%-WATER - 50 ML IVPB SCH (10:25)
[2022-09-20] MEDS: PANTOPRAZOLE SODIUM 40 MG VIAL IVPUSH SCH (10:25)
[2022-09-20] MEDS: ENOXAPARIN NA (PORCINE) 40 MG/0.4 ML DISP.SYRIN SQ SCH ×2 (10:26→21:57)
[2022-09-20] MEDS: NYSTATIN 100000 UNIT/GM TOPICAL OINTMENT 15 GM TUBE TP SCH ×3 (11:00→21:58)
[2022-09-20] MEDS: BUDESONIDE/FORMETEROL FUMARATE 160/4.5 mcg INHALER IH SCH ×3 (11:00→21:57)
[2022-09-21] MEDS: SODIUM CHLORIDE 0.45% 1,000 ML IV SCH ×2 (01:08→09:32)
[2022-09-21] MEDS: INSULIN SLIDING SCALE (NOVOLOG) 1 VIAL SQ SCH ×2 (06:20→16:35)
[2022-09-21] MEDS: CEFTRIAXONE 1 GM in DEXTROSE 5%-WATER - 50 ML IVPB SCH (09:13)
[2022-09-21] MEDS: FOLIC ACID 1 MG TABLET (FP) PO SCH (09:24)
[2022-09-21] MEDS: ASCORBIC ACID 500 MG TABLET (FP) PO SCH (09:24)
[2022-09-21] MEDS: ENOXAPARIN NA (PORCINE) 40 MG/0.4 ML DISP.SYRIN SQ SCH ×2 (09:25→22:10)
[2022-09-21] MEDS: PANTOPRAZOLE SODIUM 40 MG VIAL IVPUSH SCH (09:26)
[2022-09-21] MEDS: BUDESONIDE/FORMETEROL FUMARATE 160/4.5 mcg INHALER IH SCH ×2 (09:31→22:11)
[2022-09-21 09:40] LABS: HEMATOCRIT 36.8 % (32.4-45.2); HEMOGLOBIN 10.7 GM/dL (10.7-15.3); MCH 24.5 pg (25.7-33.7); MCHC 29.1 g/dl (32.0-36.0); MEAN CELL VOLUME 84.3 fl (80-96); MEAN PLT VOLUME 9.3 fl (7.5-11.1); PLATELET COUNT 234 10^3/uL (134-434); RBC 4.37 M/mm3 (3.60-5.2); RDW 19.7 % (11.6-15.6); WHITE BLOOD COUNT 11.7 K/mm3 (4.0-10.0)
[2022-09-21] MEDS: NYSTATIN 100000 UNIT/GM TOPICAL OINTMENT 15 GM TUBE TP SCH ×2 (09:43→22:11)
[2022-09-21 09:59] LABS: CHLORIDE 116 mmol/L (98-107); SODIUM 149 mmol/L (136-145)
[2022-09-21 10:02] LABS: CALCIUM 8.3 mg/dL (8.5-10.1)
[2022-09-21 10:03] LABS: ALBUMIN 1.6 g/dl (3.4-5.0); ANION GAP 8 MMOL/L (8-16); BLOOD UREA NITROGEN 27.6 mg/dL (7-18); CO2 25 mmol/L (21-32); GLUCOSE,RANDOM 105 mg/dL (74-106)
[2022-09-21 10:06] LABS: CREATININE 1.6 mg/dL (0.55-1.3); PHOSPHOROUS 3.7 mg/dL (2.5-4.9); SGOT/AST 13 U/L (15-37)
[2022-09-21 10:07] LABS: BILIRUBIN,TOTAL 0.6 mg/dL (0.2-1); TOT PROT 6.2 g/dl (6.4-8.2)
[2022-09-21 10:09] LABS: ALK PHOS 78 U/L (45-117); SGPT/ALT < 6 U/L (13-61)
[2022-09-21] MEDS ORDERED: VANCOMYCIN/WATER FOR INJ (PEG) 1,000 MG/200 ML BAG IVPB ONE (10:24)
[2022-09-21] MEDS: ACETAMINOPHEN 325 MG TABLET (FP) PO PRN (16:46)
[2022-09-22] MEDS: SODIUM CHLORIDE 0.45% 1,000 ML IV SCH ×2 (02:33→11:20)
[2022-09-22] MEDS: INSULIN SLIDING SCALE (NOVOLOG) 1 VIAL SQ SCH ×2 (06:34→17:53)
[2022-09-22 08:38] LABS: HEMATOCRIT 36.7 % (32.4-45.2); HEMOGLOBIN 10.5 GM/dL (10.7-15.3); MCH 24.6 pg (25.7-33.7); MCHC 28.7 g/dl (32.0-36.0); MEAN CELL VOLUME 85.8 fl (80-96); MEAN PLT VOLUME 9.3 fl (7.5-11.1); PLATELET COUNT 229 10^3/uL (134-434); RBC 4.28 M/mm3 (3.60-5.2); RDW 19.8 % (11.6-15.6); WHITE BLOOD COUNT 12.2 K/mm3 (4.0-10.0)
[2022-09-22 08:53] LABS: CHLORIDE 115 mmol/L (98-107); SODIUM 147 mmol/L (136-145)
[2022-09-22 08:56] LABS: GLUCOSE,RANDOM 81 mg/dL (74-106)
[2022-09-22 08:57] LABS: ALBUMIN 1.6 g/dl (3.4-5.0); ANION GAP 8 MMOL/L (8-16); BLOOD UREA NITROGEN 25.9 mg/dL (7-18); CO2 24 mmol/L (21-32)
[2022-09-22 09:00] LABS: CREATININE 1.7 mg/dL (0.55-1.3); SGOT/AST 11 U/L (15-37); SGPT/ALT < 6 U/L (13-61)
[2022-09-22 09:01] LABS: BILIRUBIN,TOTAL 0.6 mg/dL (0.2-1); TOT PROT 6.3 g/dl (6.4-8.2)
[2022-09-22 09:02] LABS: ALK PHOS 77 U/L (45-117)
[2022-09-22 10:10] LABS: ANISOCYTOSIS 0; MACROCYTOSIS 0
[2022-09-22] MEDS: ENOXAPARIN NA (PORCINE) 40 MG/0.4 ML DISP.SYRIN SQ SCH ×2 (11:06→22:23)
[2022-09-22] MEDS: CEFTRIAXONE 1 GM in DEXTROSE 5%-WATER - 50 ML IVPB SCH (11:07)
[2022-09-22] MEDS: FOLIC ACID 1 MG TABLET (FP) PO SCH (11:07)
[2022-09-22] MEDS: PANTOPRAZOLE SODIUM 40 MG VIAL IVPUSH SCH (11:12)
[2022-09-22] MEDS: ASCORBIC ACID 500 MG TABLET (FP) PO SCH (11:19)
[2022-09-22] MEDS: NYSTATIN 100000 UNIT/GM TOPICAL OINTMENT 15 GM TUBE TP SCH ×2 (11:21→22:23)
[2022-09-22] MEDS: BUDESONIDE/FORMETEROL FUMARATE 160/4.5 mcg INHALER IH SCH ×2 (11:22→22:22)
[2022-09-22] MEDS: ACETAMINOPHEN 325 MG TABLET (FP) PO PRN (23:12)
[2022-09-23] MEDS ORDERED: DEXTROSE 50%-WATER - 25 GM/50 ML VIAL IVPUSH ONE (06:33)
[2022-09-23] MEDS: ACETAMINOPHEN 325 MG TABLET (FP) PO PRN (06:57)
[2022-09-23] MEDS: INSULIN SLIDING SCALE (NOVOLOG) 1 VIAL SQ SCH ×2 (06:59→16:45)
[2022-09-23] MEDS ORDERED: DEXTROSE 50%-WATER 25 GM/50 ML DISP.SYRIN IVPUSH ONE (07:00)
[2022-09-23] MEDS: SODIUM CHLORIDE 0.45% 1,000 ML IV SCH (10:10)
[2022-09-23] MEDS: FOLIC ACID 1 MG TABLET (FP) PO SCH (10:11)
[2022-09-23] MEDS: ENOXAPARIN NA (PORCINE) 40 MG/0.4 ML DISP.SYRIN SQ SCH ×2 (10:11→21:27)
[2022-09-23] MEDS: ASCORBIC ACID 500 MG TABLET (FP) PO SCH (10:11)
[2022-09-23] MEDS: CEFTRIAXONE 1 GM in DEXTROSE 5%-WATER - 50 ML IVPB SCH (10:12)
[2022-09-23] MEDS: PANTOPRAZOLE SODIUM 40 MG VIAL IVPUSH SCH (10:16)
[2022-09-23] MEDS: BUDESONIDE/FORMETEROL FUMARATE 160/4.5 mcg INHALER IH SCH ×2 (10:25→21:29)
[2022-09-23] MEDS: NYSTATIN 100000 UNIT/GM TOPICAL OINTMENT 15 GM TUBE TP SCH ×2 (10:25→21:29)
[2022-09-23 11:41] LABS: CHLORIDE 113 mmol/L (98-107); SODIUM 146 mmol/L (136-145)
[2022-09-23 11:44] LABS: ALBUMIN 1.7 g/dl (3.4-5.0); ANION GAP 11 MMOL/L (8-16); BLOOD UREA NITROGEN 26.3 mg/dL (7-18); CO2 22 mmol/L (21-32); GLUCOSE,RANDOM 74 mg/dL (74-106)
[2022-09-23 11:47] LABS: CREATININE 1.9 mg/dL (0.55-1.3); SGOT/AST 12 U/L (15-37)
[2022-09-23 11:48] LABS: BILIRUBIN,TOTAL 0.6 mg/dL (0.2-1)
[2022-09-23 11:49] LABS: TOT PROT 6.3 g/dl (6.4-8.2)
[2022-09-23 11:50] LABS: ALK PHOS 75 U/L (45-117)
[2022-09-23 11:52] LABS: SGPT/ALT < 6 U/L (13-61)
[2022-09-23] MEDS: POTASSIUM CHLORIDE 10 MEQ in DEXTROSE 5%-WATER - 1,000 ML IV SCH (16:17)
[2022-09-23] MEDS ORDERED: VANCOMYCIN/WATER FOR INJ (PEG) 1,000 MG/200 ML BAG IVPB ONE (18:44)
[2022-09-24] MEDS: POTASSIUM CHLORIDE 10 MEQ in DEXTROSE 5%-WATER - 1,000 ML IV SCH ×2 (04:23→18:31)
[2022-09-24] MEDS: INSULIN SLIDING SCALE (NOVOLOG) 1 VIAL SQ SCH ×2 (06:36→17:48)
[2022-09-24] MEDS: CEFTRIAXONE 1 GM in DEXTROSE 5%-WATER - 50 ML IVPB SCH (11:33)
[2022-09-24] MEDS: FOLIC ACID 1 MG TABLET (FP) PO SCH (11:36)
[2022-09-24] MEDS: PANTOPRAZOLE SODIUM 40 MG VIAL IVPUSH SCH (11:36)
[2022-09-24] MEDS: ENOXAPARIN NA (PORCINE) 40 MG/0.4 ML DISP.SYRIN SQ SCH ×2 (11:36→21:53)
[2022-09-24] MEDS: ASCORBIC ACID 500 MG TABLET (FP) PO SCH (11:36)
[2022-09-24] MEDS: BUDESONIDE/FORMETEROL FUMARATE 160/4.5 mcg INHALER IH SCH ×2 (11:36→21:54)
[2022-09-24] MEDS: NYSTATIN 100000 UNIT/GM TOPICAL OINTMENT 15 GM TUBE TP SCH ×2 (11:47→22:50)
[2022-09-24 11:54] LABS: HEMATOCRIT 34.4 % (32.4-45.2); HEMOGLOBIN 10.2 GM/dL (10.7-15.3); MCHC 29.6 g/dl (32.0-36.0); MEAN CELL VOLUME 84.4 fl (80-96); MEAN PLT VOLUME 9.6 fl (7.5-11.1); PLATELET COUNT 220 10^3/uL (134-434); RBC 4.07 M/mm3 (3.60-5.2); RDW 19.9 % (11.6-15.6); WHITE BLOOD COUNT 10.9 K/mm3 (4.0-10.0)
[2022-09-24 12:13] LABS: CHLORIDE 116 mmol/L (98-107); SODIUM 145 mmol/L (136-145)
[2022-09-24 12:16] LABS: ALBUMIN 1.7 g/dl (3.4-5.0); ANION GAP 7 MMOL/L (8-16); BLOOD UREA NITROGEN 26.1 mg/dL (7-18); CALCIUM 7.9 mg/dL (8.5-10.1); CO2 22 mmol/L (21-32); GLUCOSE,RANDOM 89 mg/dL (74-106)
[2022-09-24 12:18] LABS: SGPT/ALT < 6 U/L (13-61)
[2022-09-24 12:20] LABS: SGOT/AST 12 U/L (15-37)
[2022-09-24 12:21] LABS: BILIRUBIN,TOTAL 0.7 mg/dL (0.2-1); TOT PROT 6.4 g/dl (6.4-8.2)
[2022-09-24 12:22] LABS: ALK PHOS 73 U/L (45-117)
[2022-09-24] MEDS: ACETAMINOPHEN 1000 MG/100 ML BAG IVPB PRN ×2 (15:54→22:21)
[2022-09-25] MEDS: INSULIN SLIDING SCALE (NOVOLOG) 1 VIAL SQ SCH ×2 (06:15→16:05)
[2022-09-25] MEDS: POTASSIUM CHLORIDE 10 MEQ in DEXTROSE 5%-WATER - 1,000 ML IV SCH ×2 (06:15→19:19)
[2022-09-25] MEDS: CEFTRIAXONE 1 GM in DEXTROSE 5%-WATER - 50 ML IVPB SCH (09:02)
[2022-09-25] MEDS: FOLIC ACID 1 MG TABLET (FP) PO SCH (09:52)
[2022-09-25] MEDS: ASCORBIC ACID 500 MG TABLET (FP) PO SCH (09:52)
[2022-09-25] MEDS: ENOXAPARIN NA (PORCINE) 40 MG/0.4 ML DISP.SYRIN SQ SCH ×2 (09:52→21:57)
[2022-09-25] MEDS: BUDESONIDE/FORMETEROL FUMARATE 160/4.5 mcg INHALER IH SCH ×2 (09:52→21:57)
[2022-09-25] MEDS: NYSTATIN 100000 UNIT/GM TOPICAL OINTMENT 15 GM TUBE TP SCH ×2 (09:52→21:57)
[2022-09-25] MEDS: PANTOPRAZOLE SODIUM 40 MG VIAL IVPUSH SCH (09:53)
[2022-09-25] MEDS ORDERED: VANCOMYCIN/WATER FOR INJ (PEG) 1,000 MG/200 ML BAG IVPB ONE (17:30)
[2022-09-25] MEDS ORDERED: VANCOMYCIN 1 GRAM (PRE-DOCKED) 1,000 MG/250 ML BAG IVPB ONE (17:30)
[2022-09-26] MEDS: POTASSIUM CHLORIDE 10 MEQ in DEXTROSE 5%-WATER - 1,000 ML IV SCH ×2 (06:05→13:41)
[2022-09-26] MEDS: INSULIN SLIDING SCALE (NOVOLOG) 1 VIAL SQ SCH ×2 (07:03→16:39)
[2022-09-26] MEDS: NYSTATIN 100000 UNIT/GM TOPICAL OINTMENT 15 GM TUBE TP SCH ×2 (09:52→21:59)
[2022-09-26] MEDS: PANTOPRAZOLE SODIUM 40 MG VIAL IVPUSH SCH (09:52)
[2022-09-26] MEDS: CEFTRIAXONE 1 GM in DEXTROSE 5%-WATER - 50 ML IVPB SCH (09:52)
[2022-09-26] MEDS: ASCORBIC ACID 500 MG TABLET (FP) PO SCH (09:53)
[2022-09-26] MEDS: ENOXAPARIN NA (PORCINE) 40 MG/0.4 ML DISP.SYRIN SQ SCH ×2 (09:53→21:59)
[2022-09-26] MEDS: FOLIC ACID 1 MG TABLET (FP) PO SCH (09:53)
[2022-09-26] MEDS: BUDESONIDE/FORMETEROL FUMARATE 160/4.5 mcg INHALER IH SCH ×2 (09:54→21:58)
[2022-09-26 12:05] LABS: CHLORIDE 114 mmol/L (98-107); SODIUM 146 mmol/L (136-145)
[2022-09-26 12:13] LABS: ALBUMIN 1.5 g/dl (3.4-5.0); ANION GAP 9 MMOL/L (8-16); BLOOD UREA NITROGEN 29.2 mg/dL (7-18); CALCIUM 7.7 mg/dL (8.5-10.1); CO2 23 mmol/L (21-32); GLUCOSE,RANDOM 104 mg/dL (74-106)
[2022-09-26 12:17] LABS: BILIRUBIN,TOTAL 0.8 mg/dL (0.2-1); CREATININE 2.4 mg/dL (0.55-1.3); SGOT/AST 10 U/L (15-37)
[2022-09-26 12:19] LABS: ALK PHOS 65 U/L (45-117)
[2022-09-26 12:30] LABS: SGPT/ALT < 6 U/L (13-61)
[2022-09-26] MEDS: ACETAMINOPHEN 325 MG TABLET (FP) PO PRN (12:53)
[2022-09-27] MEDS: POTASSIUM CHLORIDE 10 MEQ in DEXTROSE 5%-WATER - 1,000 ML IV SCH ×2 (00:03→15:19)
[2022-09-27] MEDS: INSULIN SLIDING SCALE (NOVOLOG) 1 VIAL SQ SCH ×2 (06:06→16:38)
[2022-09-27] MEDS: ACETAMINOPHEN 325 MG TABLET (FP) PO PRN (06:07)
[2022-09-27] MEDS: FOLIC ACID 1 MG TABLET (FP) PO SCH (10:37)
[2022-09-27] MEDS: PANTOPRAZOLE SODIUM 40 MG VIAL IVPUSH SCH (10:39)
[2022-09-27] MEDS: NYSTATIN 100000 UNIT/GM TOPICAL OINTMENT 15 GM TUBE TP SCH ×2 (10:39→21:44)
[2022-09-27] MEDS: ASCORBIC ACID 500 MG TABLET (FP) PO SCH (10:39)
[2022-09-27] MEDS: BUDESONIDE/FORMETEROL FUMARATE 160/4.5 mcg INHALER IH SCH ×2 (10:39→21:44)
[2022-09-27] MEDS: SODIUM CHLORIDE 0.45%/POT 20 MEQ/1,000 ML INFUS.BAG IV SCH (16:49)
[2022-09-28] MEDS: INSULIN SLIDING SCALE (NOVOLOG) 1 VIAL SQ SCH ×2 (06:13→16:44)
[2022-09-28] MEDS: SODIUM CHLORIDE 0.45%/POT 20 MEQ/1,000 ML INFUS.BAG IV SCH ×3 (08:52→21:50)
[2022-09-28] MEDS: ASCORBIC ACID 500 MG TABLET (FP) PO SCH (09:24)
[2022-09-28] MEDS: FOLIC ACID 1 MG TABLET (FP) PO SCH (09:24)
[2022-09-28] MEDS: PANTOPRAZOLE SODIUM 40 MG VIAL IVPUSH SCH (09:24)
[2022-09-28] MEDS: BUDESONIDE/FORMETEROL FUMARATE 160/4.5 mcg INHALER IH SCH ×2 (09:25→21:47)
[2022-09-28 10:26] LABS: BASO % 0.6 % (0-2.0); EOS % 3.9 % (0-4.5); HEMATOCRIT 32.5 % (32.4-45.2); HEMOGLOBIN 9.7 GM/dL (10.7-15.3); LYMPH % 12.7 % (8-40); MCH 24.9 pg (25.7-33.7); MCHC 29.9 g/dl (32.0-36.0); MEAN CELL VOLUME 83.2 fl (80-96); MEAN PLT VOLUME 9.9 fl (7.5-11.1); MONO % 8.7 % (3.8-10.2); NEUT % 74.1 % (42.8-82.8); PLATELET COUNT 229 10^3/uL (134-434); RDW 20.2 % (11.6-15.6)
[2022-09-28 10:49] LABS: CHLORIDE 113 mmol/L (98-107); SODIUM 143 mmol/L (136-145)
[2022-09-28 11:08] LABS: ALBUMIN 1.5 g/dl (3.4-5.0); ANION GAP 9 MMOL/L (8-16); BLOOD UREA NITROGEN 31.6 mg/dL (7-18); CALCIUM 7.8 mg/dL (8.5-10.1); CO2 20 mmol/L (21-32)
[2022-09-28 11:09] LABS: GLUCOSE,RANDOM 105 mg/dL (74-106)
[2022-09-28] MEDS: NYSTATIN 100000 UNIT/GM TOPICAL OINTMENT 15 GM TUBE TP SCH ×2 (11:09→21:48)
[2022-09-28 11:11] LABS: CREATININE 2.8 mg/dL (0.55-1.3); SGOT/AST 9 U/L (15-37); SGPT/ALT < 6 U/L (13-61)
[2022-09-28 11:13] LABS: BILIRUBIN,TOTAL 0.4 mg/dL (0.2-1); TOT PROT 6.4 g/dl (6.4-8.2)
[2022-09-28 11:14] LABS: ALK PHOS 72 U/L (45-117)
[2022-09-29] MEDS: SODIUM CHLORIDE 0.45%/POT 20 MEQ/1,000 ML INFUS.BAG IV SCH ×3 (00:24→17:04)
[2022-09-29] MEDS: INSULIN SLIDING SCALE (NOVOLOG) 1 VIAL SQ SCH ×2 (06:36→17:09)
[2022-09-29 09:20] LABS: CHLORIDE 112 mmol/L (98-107); SODIUM 143 mmol/L (136-145)
[2022-09-29 09:25] LABS: GLUCOSE,RANDOM 103 mg/dL (74-106)
[2022-09-29 09:26] LABS: ALBUMIN 1.4 g/dl (3.4-5.0); ANION GAP 8 MMOL/L (8-16); CO2 23 mmol/L (21-32)
[2022-09-29 09:29] LABS: CREATININE 2.9 mg/dL (0.55-1.3); SGOT/AST 10 U/L (15-37)
[2022-09-29 09:30] LABS: BILIRUBIN,TOTAL 0.7 mg/dL (0.2-1); TOT PROT 6.2 g/dl (6.4-8.2)
[2022-09-29 09:32] LABS: ALK PHOS 70 U/L (45-117)
[2022-09-29 09:38] LABS: SGPT/ALT < 6 U/L (13-61)
[2022-09-29] MEDS: ASCORBIC ACID 500 MG TABLET (FP) PO SCH (09:44)
[2022-09-29] MEDS: NYSTATIN 100000 UNIT/GM TOPICAL OINTMENT 15 GM TUBE TP SCH ×2 (09:45→22:03)
[2022-09-29] MEDS: FOLIC ACID 1 MG TABLET (FP) PO SCH (09:45)
[2022-09-29] MEDS: PANTOPRAZOLE SODIUM 40 MG VIAL IVPUSH SCH (09:45)
[2022-09-29] MEDS: BUDESONIDE/FORMETEROL FUMARATE 160/4.5 mcg INHALER IH SCH ×2 (09:46→22:04)
[2022-09-30] MEDS: SODIUM CHLORIDE 0.45%/POT 20 MEQ/1,000 ML INFUS.BAG IV SCH ×2 (04:39→18:11)
[2022-09-30] MEDS: INSULIN SLIDING SCALE (NOVOLOG) 1 VIAL SQ SCH ×2 (07:00→17:01)
[2022-09-30] MEDS: ASCORBIC ACID 500 MG TABLET (FP) PO SCH (10:52)
[2022-09-30] MEDS: BUDESONIDE/FORMETEROL FUMARATE 160/4.5 mcg INHALER IH SCH ×2 (10:52→21:48)
[2022-09-30] MEDS: FOLIC ACID 1 MG TABLET (FP) PO SCH (10:52)
[2022-09-30] MEDS: PANTOPRAZOLE SODIUM 40 MG VIAL IVPUSH SCH (10:52)
[2022-09-30] MEDS: NYSTATIN 100000 UNIT/GM TOPICAL OINTMENT 15 GM TUBE TP SCH ×2 (10:53→21:48)
[2022-09-30 12:34] LABS: HEMATOCRIT 35.1 % (32.4-45.2); HEMOGLOBIN 10.4 GM/dL (10.7-15.3); MCH 25.3 pg (25.7-33.7); MCHC 29.6 g/dl (32.0-36.0); MEAN CELL VOLUME 85.5 fl (80-96); MEAN PLT VOLUME 9.8 fl (7.5-11.1); PLATELET COUNT 267 10^3/uL (134-434); WHITE BLOOD COUNT 8.7 K/mm3 (4.0-10.0)
[2022-09-30 12:52] LABS: CHLORIDE 114 mmol/L (98-107); SODIUM 144 mmol/L (136-145)
[2022-09-30 12:54] LABS: ALBUMIN 1.5 g/dl (3.4-5.0); ANION GAP 7 MMOL/L (8-16); BLOOD UREA NITROGEN 32.2 mg/dL (7-18); CO2 23 mmol/L (21-32); GLUCOSE,RANDOM 123 mg/dL (74-106)
[2022-09-30 12:57] LABS: CREATININE 3.4 mg/dL (0.55-1.3)
[2022-09-30 12:59] LABS: BILIRUBIN,TOTAL 0.3 mg/dL (0.2-1); TOT PROT 6.7 g/dl (6.4-8.2)
[2022-09-30 13:00] LABS: ALK PHOS 79 U/L (45-117)
[2022-09-30 13:01] LABS: SGOT/AST 10 U/L (15-37)
[2022-09-30 13:02] LABS: SGPT/ALT < 6 U/L (13-61)
[2022-09-30 13:21] VITALS: RESP 20
[2022-10-01] MEDS: INSULIN SLIDING SCALE (NOVOLOG) 1 VIAL SQ SCH ×2 (06:14→17:17)
[2022-10-01] MEDS: BUDESONIDE/FORMETEROL FUMARATE 160/4.5 mcg INHALER IH SCH ×2 (09:53→22:10)
[2022-10-01] MEDS: SODIUM CHLORIDE 0.45%/POT 20 MEQ/1,000 ML INFUS.BAG IV SCH ×2 (09:53→17:17)
[2022-10-01] MEDS: ASCORBIC ACID 500 MG TABLET (FP) PO SCH (09:53)
[2022-10-01] MEDS: NYSTATIN 100000 UNIT/GM TOPICAL OINTMENT 15 GM TUBE TP SCH ×2 (09:53→22:10)
[2022-10-01] MEDS: FOLIC ACID 1 MG TABLET (FP) PO SCH (09:53)
[2022-10-01] MEDS: PANTOPRAZOLE SODIUM 40 MG VIAL IVPUSH SCH (09:54)
[2022-10-01 10:03] LABS: ALBUMIN 1.4 g/dl (3.4-5.0); BLOOD UREA NITROGEN 33.9 mg/dL (7-18); CALCIUM 8.1 mg/dL (8.5-10.1)
[2022-10-01 10:07] LABS: CREATININE 3.3 mg/dL (0.55-1.3)
[2022-10-01 10:08] LABS: BILIRUBIN,TOTAL 0.7 mg/dL (0.2-1); TOT PROT 6.6 g/dl (6.4-8.2)
[2022-10-01 14:54] LABS: ARTERIAL BLD GAS O2 SATURATION 97.4 % (95-98); ARTERIAL BLOOD GAS BASE EXCESS -5.8 mmol/L (-2-2); ARTERIAL BLOOD GAS PO2 113.2 mmHg (80-100); ARTERIAL BLOOD GAS pH 7.247 (7.350-7.450)
[2022-10-01 14:55] LABS: ALLENS TEST POSITIVE
[2022-10-02] MEDS: INSULIN SLIDING SCALE (NOVOLOG) 1 VIAL SQ SCH ×2 (06:08→17:39)
[2022-10-02] MEDS: FOLIC ACID 1 MG TABLET (FP) PO SCH (09:56)
[2022-10-02] MEDS: NYSTATIN 100000 UNIT/GM TOPICAL OINTMENT 15 GM TUBE TP SCH (09:56)
[2022-10-02] MEDS: PANTOPRAZOLE SODIUM 40 MG VIAL IVPUSH SCH (09:57)
[2022-10-02] MEDS: ASCORBIC ACID 500 MG TABLET (FP) PO SCH (09:58)
[2022-10-02] MEDS: BUDESONIDE/FORMETEROL FUMARATE 160/4.5 mcg INHALER IH SCH (09:58)
[2022-10-02] MEDS: SODIUM CHLORIDE 0.45%/POT 20 MEQ/1,000 ML INFUS.BAG IV SCH (09:59)
[2022-10-02 15:05] VITALS: BP 111/63; PULSE 93; TEMP 98.2
== END 2022-10-02 17:00 | DRG 853 ==
LOC: JER 19:38 → JERBED 09-14 02:14 → JICU 09-15 22:14 → J6S 09-20 08:56
PROVIDERS: ADMIT Internal Medicine; ATTEND Family Medicine
PROC: 0T968ZZ Drainage of Right Ureter, Via Natural or Artificial Opening Endoscopic (ICD-10-PCS; 2022-09-15)
PROC: 4A133B1 Monitoring of Arterial Pressure, Peripheral, Percutaneous Approach (ICD-10-PCS; 2022-09-16)
PROC: 4A133J1 Monitoring of Arterial Pulse, Peripheral, Percutaneous Approach (ICD-10-PCS; 2022-09-16)
PROC: 05HN33Z Insertion of Infusion Device into Left Internal Jugular Vein, Percutaneous Approach (ICD-10-PCS; 2022-09-16)
PROC: B544ZZA Ultrasonography of Left Jugular Veins, Guidance (ICD-10-PCS; 2022-09-16)
PROC: 0TC68ZZ Extirpation of Matter from Right Ureter, Via Natural or Artificial Opening Endoscopic (ICD-10-PCS; 2022-09-16)
PROC: 03HY32Z Insertion of Monitoring Device into Upper Artery, Percutaneous Approach (ICD-10-PCS; principal; 2022-09-16 06:30)
PROC: 0T768DZ Dilation of Right Ureter with Intraluminal Device, Via Natural or Artificial Opening Endoscopic (ICD-10-PCS; 2022-09-16 06:30)
PROC: 0TP5X0Z Removal of Drainage Device from Kidney, External Approach (ICD-10-PCS; 2022-10-01)
DX: A41.89 Other specified sepsis (principal); G93.41 Metabolic encephalopathy; R65.21 Severe sepsis with septic shock; J96.21 Acute and chronic respiratory failure with hypoxia; J96.22 Acute and chronic respiratory failure with hypercapnia; I50.33 Acute on chronic diastolic (congestive) heart failure; Z68.43 Body mass index [BMI] 50.0-59.9, adult; N13.6 Pyonephrosis; N17.9 Acute kidney failure, unspecified; I13.0 Hypertensive heart and chronic kidney disease with heart failure and stage 1 through stage 4 chronic kidney disease, or unspecified chronic kidney disease; E87.0 Hyperosmolality and hypernatremia; E11.22 Type 2 diabetes mellitus with diabetic chronic kidney disease; N18.9 Chronic kidney disease, unspecified; D72.829 Elevated white blood cell count, unspecified; D64.9 Anemia, unspecified; J45.909 Unspecified asthma, uncomplicated; R10.11 Right upper quadrant pain; K44.9 Diaphragmatic hernia without obstruction or gangrene; R41.82 Altered mental status, unspecified; K21.9 Gastro-esophageal reflux disease without esophagitis; E66.01 Morbid (severe) obesity due to excess calories; G47.30 Sleep apnea, unspecified; F32.A Depression, unspecified; B96.4 Proteus (mirabilis) (morganii) as the cause of diseases classified elsewhere; B96.5 Pseudomonas (aeruginosa) (mallei) (pseudomallei) as the cause of diseases classified elsewhere; B95.2 Enterococcus as the cause of diseases classified elsewhere; B96.20 Unspecified Escherichia coli [E. coli] as the cause of diseases classified elsewhere; Z85.42 Personal history of malignant neoplasm of other parts of uterus; Z86.718 Personal history of other venous thrombosis and embolism
CPT/HCPCS: 0241U-QW; 36415; 36600; 50389; 50431; 50432; 70450-TC; 71045-TC-FY; 74176-TC; 74425-TC-FY; 76000-TC-FY; 76705-TC; 76775-TC; 80048; 80053; 81003; 82550; 82553; 82570; 82803; 82962; 83605; 83735; 83880; 84100; 84300; 84484; 85025; 85027; 85610; 85730; 86850; 86900; 86901; 87040; 87070; 87075; 87076; 87086; 87102; 87116; 87186; 87205; 87206; 87210; 93005; 93010; 94002; 94660; 97116-GP; 97161-GP; 99291; C1729; C1769; C2617; C9803-CS; E0277; G0480; J3480; U0003; U0005

== ENCOUNTER 2023-03-16 09:07 | Inpatient (IN) | payer OTHER ==
[2023-03-16] MEDS ORDERED: RAPID SEQUENCE INTUBATION KIT NR ONE (09:11)
[2023-03-16] MEDS ORDERED: ALBUTEROL SO4 2.5/IPRATROPIUM 0.5 INH SOL 3 ML VIAL.NEB. NEB ONE (09:12)
[2023-03-16] MEDS ORDERED: ROCURONIUM BROMIDE 50 MG/5 ML SYRINGE ONE (09:12)
[2023-03-16] MEDS ORDERED: KETAMINE HCL 500 MG/10 ML VIAL ONE (09:12)
[2023-03-16] MEDS ORDERED: MAGNESIUM SULFATE IN WATER 2 GM/50 ML IVPB IVPB ONE (09:33)
[2023-03-16] MEDS ORDERED: methylPREDNISolone NA SUCC 125 MG/2 ML VIAL ONE (09:33)
[2023-03-16] MEDS ORDERED: VANCOMYCIN 1 GM in D5W (PRE-DOCKED) 1,000 MG/250 ML (RESTRICTED TO ID ONLY IVPB ONE (09:43)
[2023-03-16] MEDS ORDERED: SODIUM CHLORIDE 500 ML IV STA ×2 (09:43→09:45)
[2023-03-16] MEDS ORDERED: MIDAZOLAM IN 0.9 % SOD.CHLORID 1 MG/1 ML PLAST..BAG ONE (09:46)
[2023-03-16] MEDS ORDERED: MEROPENEM 1 GM in DEXTROSE 5%-WATER 100 ML IVPB ONE (10:03)
[2023-03-16 10:15] LABS: BASO % 0.8 % (0-2.0); EOS % 4.2 % (0-4.5); HEMATOCRIT 38.8 % (32.4-45.2); LYMPH % 21.2 % (8-40); MCH 23.1 pg (25.7-33.7); MCHC 28.3 g/dl (32.0-36.0); MEAN CELL VOLUME 81.8 fl (80-96); MEAN PLT VOLUME 8.5 fl (7.5-11.1); MONO % 9.2 % (3.8-10.2); NEUT % 64.6 % (42.8-82.8); PLATELET COUNT 207 10^3/uL (134-434); RBC 4.75 M/mm3 (3.60-5.2); RDW 27.5 % (11.6-15.6); WHITE BLOOD COUNT 12.3 K/mm3 (4.0-10.0)
[2023-03-16] MEDS ORDERED: FENTANYL NS IVPB 500 MCG/100 ML BAG IVPB ONE (10:18)
[2023-03-16] MEDS ORDERED: methylPREDNISolone NA SUCC 125 MG/2 ML VIAL IVPUSH ONE (10:24)
[2023-03-16] MEDS ORDERED: AZITHROMYCIN IVPB 500 MG in DEXTROSE 5%-WATER - 250 ML IVPB ONE (10:27)
[2023-03-16] MEDS ORDERED: FENTANYL IVPB 500 MCG/100 ML BAG IVPB SCH (10:30)
[2023-03-16 10:48] LABS: POTASSIUM 5.1 mmol/L (3.5-5.1)
[2023-03-16 10:50] LABS: ALBUMIN 1.9 g/dl (3.4-5.0); CALCIUM 8.1 mg/dL (8.5-10.1)
[2023-03-16 10:51] LABS: BLOOD UREA NITROGEN 15.7 mg/dL (7-18)
[2023-03-16 10:54] LABS: ANISOCYTOSIS 2+; CREATININE 1.5 mg/dL (0.55-1.3); MACROCYTOSIS 0
[2023-03-16 10:55] LABS: BILIRUBIN,TOTAL 0.3 mg/dL (0.2-1)
[2023-03-16 11:10] LABS: ALLENS TEST POSITIVE; ARTERIAL BLD GAS O2 SATURATION 98.5 % (95-98); ARTERIAL BLOOD GAS BASE EXCESS 4.4 mmol/L (-2-2); ARTERIAL BLOOD GAS PO2 129.4 mmHg (80-100); ARTERIAL BLOOD GAS pH 7.383 (7.350-7.450)
[2023-03-16 11:11] LABS: VENT RATE 14
[2023-03-16 11:25] LABS: EPI CELLS 11 /uL (0-25.1); HYALINE CASTS 2 /uL (0-3.1); URINE APPEARANCE TURBID; URINE BACTERIA >9,000 /uL (0-1359); URINE BILIRUBIN NEGATIVE (NEGATIVE); URINE COLOR YELLOW; URINE GLUCOSE (UA) NEGATIVE (NEGATIVE); URINE KETONE NEGATIVE (NEGATIVE); URINE LEUK ESTERASE 3+ (NEGATIVE); URINE NITRITE NEGATIVE (NEGATIVE); URINE PROTEIN 3+ (NEGATIVE); URINE UROBILINOGEN 0.2 mg/dL (0.2-1.0); URINE WBC 3145 /uL (0-25.8)
[2023-03-16] MEDS: MIDAZOLAM IN 0.9 % SOD.CHLORID 100 MG/100 ML PLAST..BAG IVPB SCH ×2 (11:30→23:18)
[2023-03-16 11:40] LABS: URINE RBC 982.3 /uL (0-23.9); YEAST NEGATIVE (NEGATIVE)
[2023-03-16] MEDS ORDERED: DEXTROSE 5%-0.45% SALINE 1,000 ML IV SCH (12:00)
[2023-03-16] MEDS: INSULIN SLIDING SCALE (NOVOLOG) 1 VIAL SQ SCH ×3 (12:09→21:20)
[2023-03-16] MEDS: MUPIROCIN 2% TOPICAL OINTMENT FOR DECOLONIZATION NS SCH ×2 (12:09→21:35)
[2023-03-16] MEDS: ALBUTEROL SO4 2.5/IPRATROPIUM 0.5 INH SOL 3 ML VIAL.NEB. NEB SCH (12:50)
[2023-03-16 13:08] LABS: N-TERMINAL BNP 3000.2 pg/ml (5-125)
[2023-03-16] MEDS ORDERED: SODIUM CHLORIDE 1,000 ML IV STA (13:15)
[2023-03-16] MEDS: FAMOTIDINE 20 MG TABLET PO SCH ×2 (13:45→21:18)
[2023-03-16] MEDS ORDERED: NOREPINEPHRINE BITARTRATE 16,000 MCG in SODIUM CHLORIDE 484 ML IV SCH (15:45)
[2023-03-16] MEDS: NOREPINEPHRINE 0.9 % NACL 8 MG/250 ML BAG IVPB SCH (16:01)
[2023-03-16] MEDS ORDERED: DAPTOMYCIN 800 MG in SODIUM CHLORIDE 50 ML IVPB ONE (16:19)
[2023-03-16] MEDS ORDERED: INSULIN (NOVOLOG) ASPART 100 UNITS/ML 10ML VIAL ONE (16:24)
[2023-03-16 16:32] LABS: INR 1.33 (0.83-1.09); PROTHROMBIN TIME (PATIENT) 15.4 SEC (9.7-13.0)
[2023-03-16 16:34] LABS: ACTIVATED PTT 30.6 SECONDS (25.2-36.5)
[2023-03-16] MEDS: methylPREDNISolone NA SUCC 40 MG/1 ML VIAL IVPUSH SCH (17:04)
[2023-03-16] MEDS: MEROPENEM 1 GM in DEXTROSE 5%-WATER 100 ML IVPB SCH (17:04)
[2023-03-16] MEDS: FENTANYL NS IVPB 500 MCG/100 ML BAG IVPB SCH (21:15)
[2023-03-16] MEDS: APIXABAN 2.5 MG TABLET PO SCH (21:17)
[2023-03-16] MEDS: CHLORHEXIDINE GLUCONATE 4% CLEANSER FOR DECOLONIZATION TP SCH (21:17)
[2023-03-16] MEDS: NYSTATIN 100000 UNIT/GM TOPICAL OINTMENT 15 GM TUBE TP SCH (21:19)
[2023-03-16] MEDS: BUDESONIDE/FORMETEROL FUMARATE 160/4.5 mcg INHALER IH SCH (21:21)
[2023-03-17] MEDS: methylPREDNISolone NA SUCC 40 MG/1 ML VIAL IVPUSH SCH ×2 (01:40→09:03)
[2023-03-17] MEDS: MEROPENEM 1 GM in DEXTROSE 5%-WATER 100 ML IVPB SCH ×3 (01:40→17:05)
[2023-03-17] MEDS: INSULIN SLIDING SCALE (NOVOLOG) 1 VIAL SQ SCH ×4 (06:14→22:42)
[2023-03-17 06:43] LABS: BASO % 0.3 % (0-2.0); HEMATOCRIT 33.8 % (32.4-45.2); HEMOGLOBIN 9.5 GM/dL (10.7-15.3); LYMPH % 7.6 % (8-40); MCH 22.6 pg (25.7-33.7); MCHC 28.2 g/dl (32.0-36.0); MEAN CELL VOLUME 80.2 fl (80-96); MEAN PLT VOLUME 9.5 fl (7.5-11.1); MONO % 2.1 % (3.8-10.2); PLATELET COUNT 231 10^3/uL (134-434); RBC 4.21 M/mm3 (3.60-5.2); RDW 27.1 % (11.6-15.6); WHITE BLOOD COUNT 11.6 K/mm3 (4.0-10.0)
[2023-03-17 07:05] LABS: INR 1.37 (0.83-1.09); PROTHROMBIN TIME (PATIENT) 15.8 SEC (9.7-13.0)
[2023-03-17 07:10] LABS: POTASSIUM 4.3 mmol/L (3.5-5.1)
[2023-03-17 07:12] LABS: ALBUMIN 1.6 g/dl (3.4-5.0); CALCIUM 7.7 mg/dL (8.5-10.1)
[2023-03-17 07:13] LABS: BLOOD UREA NITROGEN 19.5 mg/dL (7-18); MAGNESIUM 2.3 mg/dL (1.8-2.4)
[2023-03-17 07:15] LABS: PHOSPHOROUS 3.7 mg/dL (2.5-4.9)
[2023-03-17 07:16] LABS: CREATININE 1.5 mg/dL (0.55-1.3)
[2023-03-17 07:17] LABS: BILIRUBIN,TOTAL 0.2 mg/dL (0.2-1); TOT PROT 6.3 g/dl (6.4-8.2)
[2023-03-17] MEDS: FENTANYL NS IVPB 500 MCG/100 ML BAG IVPB SCH ×2 (07:21→20:27)
[2023-03-17] MEDS: ALBUTEROL SO4 2.5/IPRATROPIUM 0.5 INH SOL 3 ML VIAL.NEB. NEB SCH ×4 (07:55→20:43)
[2023-03-17] MEDS: APIXABAN 2.5 MG TABLET PO SCH ×2 (09:02→21:33)
[2023-03-17] MEDS: MUPIROCIN 2% TOPICAL OINTMENT FOR DECOLONIZATION NS SCH ×2 (09:02→21:32)
[2023-03-17] MEDS: FAMOTIDINE 20 MG TABLET PO SCH ×2 (09:03→21:33)
[2023-03-17] MEDS: NYSTATIN 100000 UNIT/GM TOPICAL OINTMENT 15 GM TUBE TP SCH ×2 (09:03→21:33)
[2023-03-17] MEDS: BUDESONIDE/FORMETEROL FUMARATE 160/4.5 mcg INHALER IH SCH ×2 (09:03→21:34)
[2023-03-17] MEDS: AZITHROMYCIN IVPB 250 MG in DEXTROSE 5%-WATER - 250 ML IVPB SCH (09:08)
[2023-03-17] MEDS: MIDAZOLAM IN 0.9 % SOD.CHLORID 100 MG/100 ML PLAST..BAG IVPB SCH (10:55)
[2023-03-17] MEDS ORDERED: INSULIN (NOVOLOG) ASPART 100 UNITS/ML 10ML VIAL ONE ×3 (10:57→22:42)
[2023-03-17] MEDS: NOREPINEPHRINE 0.9 % NACL 8 MG/250 ML BAG IVPB SCH (16:18)
[2023-03-17 16:33] LABS: ARTERIAL BLD GAS O2 SATURATION 98.7 % (95-98); ARTERIAL BLOOD GAS PO2 145.5 mmHg (80-100); ARTERIAL BLOOD GAS pH 7.352 (7.350-7.450)
[2023-03-17 16:38] LABS: ALLENS TEST POSITIVE
[2023-03-17 16:39] LABS: VENT MODE S/T
[2023-03-17 16:40] LABS: VENT RATE 16
[2023-03-17] MEDS ORDERED: LACTATED RINGERS SOLUTION 1,000 ML/1,000 ML INFUS.BAG IV SCH (18:15)
[2023-03-17 20:20] LABS: ARTERIAL BLD GAS O2 SATURATION 98.7 % (95-98); ARTERIAL BLOOD GAS BASE EXCESS 4.2 mmol/L (-2-2); ARTERIAL BLOOD GAS PO2 143.5 mmHg (80-100); ARTERIAL BLOOD GAS pH 7.369 (7.350-7.450)
[2023-03-17 20:21] LABS: ALLENS TEST POSITIVE; VENT MODE S/T; VENT RATE 18
[2023-03-17] MEDS: CHLORHEXIDINE GLUCONATE 4% CLEANSER FOR DECOLONIZATION TP SCH (21:33)
[2023-03-18] MEDS: MEROPENEM 1 GM in DEXTROSE 5%-WATER 100 ML IVPB SCH ×3 (02:12→18:23)
[2023-03-18] MEDS: INSULIN SLIDING SCALE (NOVOLOG) 1 VIAL SQ SCH ×4 (06:01→21:19)
[2023-03-18 06:47] LABS: BASO % 0.1 % (0-2.0); HEMATOCRIT 30.6 % (32.4-45.2); HEMOGLOBIN 8.8 GM/dL (10.7-15.3); LYMPH % 8.4 % (8-40); MCH 22.9 pg (25.7-33.7); MCHC 28.8 g/dl (32.0-36.0); MEAN CELL VOLUME 79.6 fl (80-96); MEAN PLT VOLUME 9.3 fl (7.5-11.1); MONO % 5.3 % (3.8-10.2); NEUT % 86.2 % (42.8-82.8); PLATELET COUNT 193 10^3/uL (134-434); RBC 3.84 M/mm3 (3.60-5.2); RDW 27.2 % (11.6-15.6); WHITE BLOOD COUNT 12.5 K/mm3 (4.0-10.0)
[2023-03-18 07:09] LABS: POTASSIUM 3.8 mmol/L (3.5-5.1)
[2023-03-18 07:12] LABS: ALBUMIN 1.7 g/dl (3.4-5.0); BLOOD UREA NITROGEN 22.4 mg/dL (7-18); CALCIUM 8.3 mg/dL (8.5-10.1); MAGNESIUM 2.3 mg/dL (1.8-2.4)
[2023-03-18 07:16] LABS: CREATININE 1.2 mg/dL (0.55-1.3)
[2023-03-18 07:17] LABS: BILIRUBIN,TOTAL 0.2 mg/dL (0.2-1); TOT PROT 5.9 g/dl (6.4-8.2)
[2023-03-18] MEDS: ALBUTEROL SO4 2.5/IPRATROPIUM 0.5 INH SOL 3 ML VIAL.NEB. NEB SCH ×3 (08:50→20:05)
[2023-03-18] MEDS: APIXABAN 2.5 MG TABLET PO SCH ×2 (09:41→21:19)
[2023-03-18] MEDS: FAMOTIDINE 20 MG TABLET PO SCH ×2 (09:41→21:19)
[2023-03-18] MEDS: MUPIROCIN 2% TOPICAL OINTMENT FOR DECOLONIZATION NS SCH ×2 (09:43→21:19)
[2023-03-18] MEDS: BUDESONIDE/FORMETEROL FUMARATE 160/4.5 mcg INHALER IH SCH ×2 (09:44→21:20)
[2023-03-18] MEDS: AZITHROMYCIN IVPB 250 MG in DEXTROSE 5%-WATER - 250 ML IVPB SCH (09:46)
[2023-03-18] MEDS: MIDAZOLAM IN 0.9 % SOD.CHLORID 100 MG/100 ML PLAST..BAG IVPB SCH (11:12)
[2023-03-18] MEDS: FOLIC ACID 1 MG TABLET (FP) PO SCH (12:52)
[2023-03-18] MEDS: FUROSEMIDE 20 MG TABLET (FP) PO SCH (12:52)
[2023-03-18] MEDS: FERROUS SO4 325 MG TABLET (FP) PO SCH (12:52)
[2023-03-18] MEDS: NYSTATIN 100000 UNIT/GM TOPICAL OINTMENT 15 GM TUBE TP SCH ×2 (12:53→21:19)
[2023-03-18 13:04] VITALS: BMI 50.1
[2023-03-18] MEDS ORDERED: DAPTOMYCIN 800 MG in SODIUM CHLORIDE 100 ML IVPB ONE (15:00)
[2023-03-18] MEDS: GABAPENTIN 400 MG CAPSULE PO SCH ×2 (15:24→21:19)
[2023-03-18] MEDS: NOREPINEPHRINE 0.9 % NACL 8 MG/250 ML BAG IVPB SCH (17:47)
[2023-03-18] MEDS: CHLORHEXIDINE GLUCONATE 4% CLEANSER FOR DECOLONIZATION TP SCH (21:19)
[2023-03-19] MEDS: MEROPENEM 1 GM in DEXTROSE 5%-WATER 100 ML IVPB SCH ×3 (02:14→17:12)
[2023-03-19] MEDS: ALBUTEROL SO4 2.5/IPRATROPIUM 0.5 INH SOL 3 ML VIAL.NEB. NEB SCH ×5 (03:15→20:37)
[2023-03-19] MEDS: GABAPENTIN 400 MG CAPSULE PO SCH ×3 (05:56→21:17)
[2023-03-19] MEDS: INSULIN SLIDING SCALE (NOVOLOG) 1 VIAL SQ SCH ×4 (06:38→22:10)
[2023-03-19 07:16] LABS: BASO % 0.4 % (0-2.0); EOS % 2.6 % (0-4.5); HEMATOCRIT 30.6 % (32.4-45.2); HEMOGLOBIN 9.1 GM/dL (10.7-15.3); LYMPH % 18.4 % (8-40); MCH 23.7 pg (25.7-33.7); MCHC 29.6 g/dl (32.0-36.0); MEAN PLT VOLUME 9.4 fl (7.5-11.1); NEUT % 71.6 % (42.8-82.8); PLATELET COUNT 169 10^3/uL (134-434); RBC 3.82 M/mm3 (3.60-5.2); RDW 26.8 % (11.6-15.6); WHITE BLOOD COUNT 10.1 K/mm3 (4.0-10.0)
[2023-03-19 07:44] LABS: POTASSIUM 3.7 mmol/L (3.5-5.1)
[2023-03-19 07:47] LABS: CALCIUM 8.1 mg/dL (8.5-10.1)
[2023-03-19 07:48] LABS: ALBUMIN 1.8 g/dl (3.4-5.0); BLOOD UREA NITROGEN 22.4 mg/dL (7-18); MAGNESIUM 2.2 mg/dL (1.8-2.4)
[2023-03-19 07:51] LABS: CREATININE 1.1 mg/dL (0.55-1.3); PHOSPHOROUS 2.9 mg/dL (2.5-4.9)
[2023-03-19 07:52] LABS: BILIRUBIN,TOTAL 0.2 mg/dL (0.2-1); TOT PROT 5.5 g/dl (6.4-8.2)
[2023-03-19] MEDS: AZITHROMYCIN IVPB 250 MG in DEXTROSE 5%-WATER - 250 ML IVPB SCH (09:23)
[2023-03-19] MEDS: FUROSEMIDE 20 MG TABLET (FP) PO SCH (09:24)
[2023-03-19] MEDS: APIXABAN 2.5 MG TABLET PO SCH ×2 (09:24→21:17)
[2023-03-19] MEDS: FAMOTIDINE 20 MG TABLET PO SCH ×2 (09:24→21:17)
[2023-03-19] MEDS: FOLIC ACID 1 MG TABLET (FP) PO SCH (09:24)
[2023-03-19] MEDS: FERROUS SO4 325 MG TABLET (FP) PO SCH (09:24)
[2023-03-19] MEDS: NYSTATIN 100000 UNIT/GM TOPICAL OINTMENT 15 GM TUBE TP SCH ×2 (09:25→21:15)
[2023-03-19] MEDS: MUPIROCIN 2% TOPICAL OINTMENT FOR DECOLONIZATION NS SCH ×2 (09:25→21:17)
[2023-03-19] MEDS ORDERED: MIDAZOLAM HCL 2 MG/2 ML SINGLE DOSE VIAL IVPUSH ONE (11:13)
[2023-03-19] MEDS ORDERED: MIDAZOLAM HCL 2 MG/2 ML SINGLE DOSE VIAL ONE (11:19)
[2023-03-19] MEDS: BUDESONIDE/FORMETEROL FUMARATE 160/4.5 mcg INHALER IH SCH ×2 (12:01→21:17)
[2023-03-19] MEDS ORDERED: INSULIN (NOVOLOG) ASPART 100 UNITS/ML 10ML VIAL ONE (12:27)
[2023-03-19] MEDS ORDERED: VANCOMYCIN PREMIX 1.5 GM 1,500 MG/300 ML BAG IVPB ONE (19:00)
[2023-03-19] MEDS: NOREPINEPHRINE 0.9 % NACL 8 MG/250 ML BAG IVPB SCH (19:57)
[2023-03-19] MEDS: CHLORHEXIDINE GLUCONATE 4% CLEANSER FOR DECOLONIZATION TP SCH (21:17)
[2023-03-19] MEDS: ACETAMINOPHEN 325 MG TABLET (FP) PO PRN (23:31)
[2023-03-20] MEDS: MEROPENEM 1 GM in DEXTROSE 5%-WATER 100 ML IVPB SCH ×3 (00:59→17:08)
[2023-03-20] MEDS: GABAPENTIN 400 MG CAPSULE PO SCH ×3 (06:30→21:34)
[2023-03-20] MEDS: INSULIN SLIDING SCALE (NOVOLOG) 1 VIAL SQ SCH ×4 (06:30→21:37)
[2023-03-20] MEDS: ALBUTEROL SO4 2.5/IPRATROPIUM 0.5 INH SOL 3 ML VIAL.NEB. NEB SCH ×4 (08:10→20:14)
[2023-03-20] MEDS: AZITHROMYCIN IVPB 250 MG in DEXTROSE 5%-WATER - 250 ML IVPB SCH (09:47)
[2023-03-20] MEDS: MUPIROCIN 2% TOPICAL OINTMENT FOR DECOLONIZATION NS SCH ×2 (09:49→21:37)
[2023-03-20] MEDS: FOLIC ACID 1 MG TABLET (FP) PO SCH (09:49)
[2023-03-20] MEDS: FERROUS SO4 325 MG TABLET (FP) PO SCH (09:49)
[2023-03-20] MEDS: APIXABAN 2.5 MG TABLET PO SCH ×2 (09:49→21:34)
[2023-03-20] MEDS: FUROSEMIDE 20 MG TABLET (FP) PO SCH (09:49)
[2023-03-20] MEDS: FAMOTIDINE 20 MG TABLET PO SCH ×2 (09:49→21:34)
[2023-03-20] MEDS: BUDESONIDE/FORMETEROL FUMARATE 160/4.5 mcg INHALER IH SCH ×2 (09:50→21:37)
[2023-03-20] MEDS: NYSTATIN 100000 UNIT/GM TOPICAL OINTMENT 15 GM TUBE TP SCH ×2 (09:50→21:37)
[2023-03-20] MEDS: NOREPINEPHRINE 0.9 % NACL 8 MG/250 ML BAG IVPB SCH (16:30)
[2023-03-20] MEDS: ACETAMINOPHEN 325 MG TABLET (FP) PO PRN (21:34)
[2023-03-20] MEDS: CHLORHEXIDINE GLUCONATE 4% CLEANSER FOR DECOLONIZATION TP SCH (21:35)
[2023-03-21] MEDS: MEROPENEM 1 GM in DEXTROSE 5%-WATER 100 ML IVPB SCH ×3 (01:26→18:05)
[2023-03-21] MEDS: GABAPENTIN 400 MG CAPSULE PO SCH ×3 (07:06→22:45)
[2023-03-21] MEDS: INSULIN SLIDING SCALE (NOVOLOG) 1 VIAL SQ SCH ×4 (07:06→22:45)
[2023-03-21] MEDS: ALBUTEROL SO4 2.5/IPRATROPIUM 0.5 INH SOL 3 ML VIAL.NEB. NEB SCH ×4 (07:55→20:46)
[2023-03-21 08:32] LABS: POTASSIUM 3.7 mmol/L (3.5-5.1)
[2023-03-21 08:35] LABS: ALBUMIN 1.8 g/dl (3.4-5.0)
[2023-03-21 08:36] LABS: BLOOD UREA NITROGEN 18.9 mg/dL (7-18); HEMATOCRIT 30.9 % (32.4-45.2); HEMOGLOBIN 9.2 GM/dL (10.7-15.3); MCH 23.4 pg (25.7-33.7); MCHC 29.6 g/dl (32.0-36.0); MEAN CELL VOLUME 78.9 fl (80-96); MEAN PLT VOLUME 9.6 fl (7.5-11.1); PLATELET COUNT 173 10^3/uL (134-434); RBC 3.92 M/mm3 (3.60-5.2); RDW 26.3 % (11.6-15.6); WHITE BLOOD COUNT 7.8 K/mm3 (4.0-10.0)
[2023-03-21 08:38] LABS: CREATININE 1.2 mg/dL (0.55-1.3)
[2023-03-21 08:40] LABS: BILIRUBIN,TOTAL 0.2 mg/dL (0.2-1); TOT PROT 5.4 g/dl (6.4-8.2)
[2023-03-21] MEDS: FERROUS SO4 325 MG TABLET (FP) PO SCH (10:05)
[2023-03-21] MEDS: FUROSEMIDE 20 MG TABLET (FP) PO SCH (10:05)
[2023-03-21] MEDS: APIXABAN 2.5 MG TABLET PO SCH ×2 (10:05→22:44)
[2023-03-21] MEDS: FOLIC ACID 1 MG TABLET (FP) PO SCH (10:05)
[2023-03-21] MEDS: NYSTATIN 100000 UNIT/GM TOPICAL OINTMENT 15 GM TUBE TP SCH ×2 (10:05→22:44)
[2023-03-21] MEDS: FAMOTIDINE 20 MG TABLET PO SCH ×2 (10:05→22:45)
[2023-03-21] MEDS: MUPIROCIN 2% TOPICAL OINTMENT FOR DECOLONIZATION NS SCH (10:06)
[2023-03-21] MEDS: BUDESONIDE/FORMETEROL FUMARATE 160/4.5 mcg INHALER IH SCH ×2 (11:57→22:45)
[2023-03-21] MEDS: NOREPINEPHRINE 0.9 % NACL 8 MG/250 ML BAG IVPB SCH (19:15)
[2023-03-21] MEDS: CHLORHEXIDINE GLUCONATE 4% CLEANSER FOR DECOLONIZATION TP SCH (22:44)
[2023-03-22] MEDS: MEROPENEM 1 GM in DEXTROSE 5%-WATER 100 ML IVPB SCH ×3 (01:39→17:54)
[2023-03-22] MEDS: GABAPENTIN 400 MG CAPSULE PO SCH ×3 (05:15→21:30)
[2023-03-22] MEDS: INSULIN SLIDING SCALE (NOVOLOG) 1 VIAL SQ SCH ×4 (06:26→21:30)
[2023-03-22 06:54] LABS: HEMATOCRIT 31.4 % (32.4-45.2); HEMOGLOBIN 9.3 GM/dL (10.7-15.3); MCH 23.2 pg (25.7-33.7); MCHC 29.6 g/dl (32.0-36.0); MEAN CELL VOLUME 78.4 fl (80-96); MEAN PLT VOLUME 9.5 fl (7.5-11.1); PLATELET COUNT 190 10^3/uL (134-434); RBC 4.01 M/mm3 (3.60-5.2); RDW 25.8 % (11.6-15.6); WHITE BLOOD COUNT 9.4 K/mm3 (4.0-10.0)
[2023-03-22 07:47] LABS: POTASSIUM 3.4 mmol/L (3.5-5.1)
[2023-03-22 07:48] LABS: CALCIUM 8.1 mg/dL (8.5-10.1)
[2023-03-22 07:49] LABS: BLOOD UREA NITROGEN 17.5 mg/dL (7-18); MAGNESIUM 1.9 mg/dL (1.8-2.4)
[2023-03-22 07:52] LABS: CREATININE 1.1 mg/dL (0.55-1.3); PHOSPHOROUS 3.5 mg/dL (2.5-4.9)
[2023-03-22] MEDS: ALBUTEROL SO4 2.5/IPRATROPIUM 0.5 INH SOL 3 ML VIAL.NEB. NEB SCH (08:15)
[2023-03-22] MEDS: FERROUS SO4 325 MG TABLET (FP) PO SCH (10:43)
[2023-03-22] MEDS: FAMOTIDINE 20 MG TABLET PO SCH ×2 (10:44→21:30)
[2023-03-22] MEDS: FUROSEMIDE 20 MG TABLET (FP) PO SCH (10:44)
[2023-03-22] MEDS: APIXABAN 2.5 MG TABLET PO SCH ×2 (10:44→21:30)
[2023-03-22] MEDS: FOLIC ACID 1 MG TABLET (FP) PO SCH (10:44)
[2023-03-22] MEDS: ACETAMINOPHEN 325 MG TABLET (FP) PO PRN (10:44)
[2023-03-22] MEDS: NYSTATIN 100000 UNIT/GM TOPICAL OINTMENT 15 GM TUBE TP SCH ×2 (10:55→21:31)
[2023-03-22] MEDS: BUDESONIDE/FORMETEROL FUMARATE 160/4.5 mcg INHALER IH SCH ×2 (10:55→21:31)
[2023-03-22] MEDS ORDERED: POTASSIUM CHLORIDE ORAL LIQUID 20 MEQ/15 ML PO ONE (15:09)
[2023-03-22] MEDS: NOREPINEPHRINE 0.9 % NACL 8 MG/250 ML BAG IVPB SCH (16:11)
[2023-03-22] MEDS: CHLORHEXIDINE GLUCONATE 4% CLEANSER FOR DECOLONIZATION TP SCH (21:31)
[2023-03-23] MEDS: MEROPENEM 1 GM in DEXTROSE 5%-WATER 100 ML IVPB SCH ×2 (01:02→10:41)
[2023-03-23] MEDS: GABAPENTIN 400 MG CAPSULE PO SCH ×3 (05:52→21:23)
[2023-03-23] MEDS: INSULIN SLIDING SCALE (NOVOLOG) 1 VIAL SQ SCH ×4 (06:48→22:44)
[2023-03-23 07:33] LABS: HEMATOCRIT 31.2 % (32.4-45.2); HEMOGLOBIN 9.3 GM/dL (10.7-15.3); MCH 23.3 pg (25.7-33.7); MCHC 29.8 g/dl (32.0-36.0); MEAN CELL VOLUME 78.4 fl (80-96); MEAN PLT VOLUME 9.7 fl (7.5-11.1); PLATELET COUNT 205 10^3/uL (134-434); RBC 3.98 M/mm3 (3.60-5.2); RDW 25.4 % (11.6-15.6); WHITE BLOOD COUNT 9.1 K/mm3 (4.0-10.0)
[2023-03-23 07:56] LABS: CALCIUM 8.3 mg/dL (8.5-10.1)
[2023-03-23 07:57] LABS: BLOOD UREA NITROGEN 13.9 mg/dL (7-18)
[2023-03-23 08:00] LABS: CREATININE 1.1 mg/dL (0.55-1.3); PHOSPHOROUS 4.1 mg/dL (2.5-4.9)
[2023-03-23] MEDS: FUROSEMIDE 20 MG TABLET (FP) PO SCH (10:41)
[2023-03-23] MEDS: FOLIC ACID 1 MG TABLET (FP) PO SCH (10:41)
[2023-03-23] MEDS: FERROUS SO4 325 MG TABLET (FP) PO SCH (10:41)
[2023-03-23] MEDS: FAMOTIDINE 20 MG TABLET PO SCH ×2 (10:41→21:23)
[2023-03-23] MEDS: APIXABAN 2.5 MG TABLET PO SCH ×2 (10:41→21:21)
[2023-03-23] MEDS: NYSTATIN 100000 UNIT/GM TOPICAL OINTMENT 15 GM TUBE TP SCH ×2 (10:43→21:22)
[2023-03-23] MEDS: BUDESONIDE/FORMETEROL FUMARATE 160/4.5 mcg INHALER IH SCH ×2 (10:43→21:23)
[2023-03-23] MEDS: NOREPINEPHRINE 0.9 % NACL 8 MG/250 ML BAG IVPB SCH (18:00)
[2023-03-23] MEDS: CHLORHEXIDINE GLUCONATE 4% CLEANSER FOR DECOLONIZATION TP SCH (21:22)
[2023-03-24] MEDS: GABAPENTIN 400 MG CAPSULE PO SCH ×3 (06:17→21:54)
[2023-03-24] MEDS: INSULIN SLIDING SCALE (NOVOLOG) 1 VIAL SQ SCH ×4 (06:17→22:26)
[2023-03-24] MEDS: FOLIC ACID 1 MG TABLET (FP) PO SCH (12:27)
[2023-03-24] MEDS: NYSTATIN 100000 UNIT/GM TOPICAL OINTMENT 15 GM TUBE TP SCH ×2 (12:27→21:54)
[2023-03-24] MEDS: FUROSEMIDE 20 MG TABLET (FP) PO SCH (12:27)
[2023-03-24] MEDS: FAMOTIDINE 20 MG TABLET PO SCH ×2 (12:27→21:54)
[2023-03-24] MEDS: APIXABAN 2.5 MG TABLET PO SCH ×2 (12:27→21:53)
[2023-03-24] MEDS: FERROUS SO4 325 MG TABLET (FP) PO SCH (12:27)
[2023-03-24] MEDS: BUDESONIDE/FORMETEROL FUMARATE 160/4.5 mcg INHALER IH SCH ×2 (12:29→21:54)
[2023-03-24] MEDS: CHLORHEXIDINE GLUCONATE 4% CLEANSER FOR DECOLONIZATION TP SCH (21:53)
[2023-03-25] MEDS: INSULIN SLIDING SCALE (NOVOLOG) 1 VIAL SQ SCH ×4 (07:33→23:01)
[2023-03-25] MEDS: GABAPENTIN 400 MG CAPSULE PO SCH ×3 (07:52→23:00)
[2023-03-25] MEDS: FUROSEMIDE 20 MG TABLET (FP) PO SCH (10:20)
[2023-03-25] MEDS: FERROUS SO4 325 MG TABLET (FP) PO SCH (10:20)
[2023-03-25] MEDS: APIXABAN 2.5 MG TABLET PO SCH ×2 (10:20→23:00)
[2023-03-25] MEDS: PANTOPRAZOLE 40 MG TABLET PO SCH (10:20)
[2023-03-25] MEDS: NYSTATIN 100000 UNIT/GM TOPICAL OINTMENT 15 GM TUBE TP SCH ×2 (10:21→23:01)
[2023-03-25] MEDS: POLYETHYLENE GLYCOL (HEALTHYLAX) 3350 17 GM PACKET PO SCH (10:21)
[2023-03-25] MEDS: BUDESONIDE/FORMETEROL FUMARATE 160/4.5 mcg INHALER IH SCH ×2 (10:21→23:01)
[2023-03-25] MEDS: FOLIC ACID 1 MG TABLET (FP) PO SCH (10:21)
[2023-03-25] MEDS ORDERED: IRON SUCROSE INJECTION 200 MG in SODIUM CHLORIDE 90 ML IVPB ONE (13:28)
[2023-03-25] MEDS ORDERED: MAG HYDROX/AL HYDROX/SIMETH 30 ML UNIT-DOSE CUP PO ONE (23:00)
[2023-03-25] MEDS: CHLORHEXIDINE GLUCONATE 4% CLEANSER FOR DECOLONIZATION TP SCH (23:00)
[2023-03-25] MEDS ORDERED: ACETAMINOPHEN 1000 MG/100 ML BAG IVPB ONE (23:00)
[2023-03-26] MEDS: GABAPENTIN 400 MG CAPSULE PO SCH ×2 (05:18→13:02)
[2023-03-26] MEDS: INSULIN SLIDING SCALE (NOVOLOG) 1 VIAL SQ SCH ×2 (07:40→10:11)
[2023-03-26] MEDS: FUROSEMIDE 20 MG TABLET (FP) PO SCH (09:02)
[2023-03-26] MEDS: FOLIC ACID 1 MG TABLET (FP) PO SCH (09:02)
[2023-03-26] MEDS: NYSTATIN 100000 UNIT/GM TOPICAL OINTMENT 15 GM TUBE TP SCH (09:02)
[2023-03-26] MEDS: FERROUS SO4 325 MG TABLET (FP) PO SCH (09:02)
[2023-03-26] MEDS: PANTOPRAZOLE 40 MG TABLET PO SCH (09:02)
[2023-03-26] MEDS: APIXABAN 2.5 MG TABLET PO SCH (09:02)
[2023-03-26] MEDS: POLYETHYLENE GLYCOL (HEALTHYLAX) 3350 17 GM PACKET PO SCH (09:02)
[2023-03-26] MEDS: BUDESONIDE/FORMETEROL FUMARATE 160/4.5 mcg INHALER IH SCH (09:03)
[2023-03-26 10:59] VITALS: BP 125/65; TEMP 98.2
[2023-03-26 12:55] VITALS: PULSE 82; RESP 20
== END 2023-03-26 14:45 | DRG 871 ==
LOC: JER 09:07 → JERBED 09:39 → JICU 11:42
PROVIDERS: ADMIT Family Medicine; ATTEND Family Medicine
PROC: 0BH17EZ Insertion of Endotracheal Airway into Trachea, Via Natural or Artificial Opening (ICD-10-PCS; principal; 2023-03-16)
PROC: 5A1945Z Respiratory Ventilation, 24-96 Consecutive Hours (ICD-10-PCS; 2023-03-16)
PROC: 05HM33Z Insertion of Infusion Device into Right Internal Jugular Vein, Percutaneous Approach (ICD-10-PCS; 2023-03-16)
PROC: B543ZZA Ultrasonography of Right Jugular Veins, Guidance (ICD-10-PCS; 2023-03-16)
DX: A41.89 Other specified sepsis (principal); R65.21 Severe sepsis with septic shock; J96.22 Acute and chronic respiratory failure with hypercapnia; J96.21 Acute and chronic respiratory failure with hypoxia; J44.1 Chronic obstructive pulmonary disease with (acute) exacerbation; N13.30 Unspecified hydronephrosis; G93.41 Metabolic encephalopathy; I13.0 Hypertensive heart and chronic kidney disease with heart failure and stage 1 through stage 4 chronic kidney disease, or unspecified chronic kidney disease; I50.32 Chronic diastolic (congestive) heart failure; N39.0 Urinary tract infection, site not specified; Z68.42 Body mass index [BMI] 45.0-49.9, adult; B96.20 Unspecified Escherichia coli [E. coli] as the cause of diseases classified elsewhere; E78.5 Hyperlipidemia, unspecified; K76.0 Fatty (change of) liver, not elsewhere classified; K21.9 Gastro-esophageal reflux disease without esophagitis; N18.9 Chronic kidney disease, unspecified; E66.01 Morbid (severe) obesity due to excess calories; E11.22 Type 2 diabetes mellitus with diabetic chronic kidney disease; F32.A Depression, unspecified; D50.9 Iron deficiency anemia, unspecified; Z86.718 Personal history of other venous thrombosis and embolism; Z85.42 Personal history of malignant neoplasm of other parts of uterus; Z74.01 Bed confinement status
CPT/HCPCS: 0241U-QW; 36415; 36600; 70450-TC; 71045-TC-FY; 74018-TC-FY; 80048; 80053; 81003; 82272; 82728; 82803; 82962; 83036; 83540; 83550; 83605; 83735; 83880; 84100; 84436; 84466; 84484; 85025; 85027; 85045; 85610; 85730; 86850; 86900; 86901; 87040; 87086; 87186; 87635; 87899; 93005; 93010; 94002; 94640; 94660; 97162-GP; 99291; G0480; J0878; J1756

== ENCOUNTER 2023-10-28 19:22 | Inpatient (IN) | payer OTHER ==
[2023-10-28 22:04] LABS: INR 1.43 (0.83-1.09); PROTHROMBIN TIME (PATIENT) 16.5 SEC (9.7-13.0)
[2023-10-28] MEDS ORDERED: ACETAMINOPHEN INJECTION 100 ML IVPB ONE (22:06)
[2023-10-28] MEDS: ACETAMINOPHEN 1000 MG/100 ML BAG IVPB ONE (22:10)
[2023-10-28 22:12] LABS: CALCIUM 7.8 mg/dL (8.5-10.1)
[2023-10-28 22:13] LABS: ALBUMIN 2.1 g/dl (3.4-5.0); BLOOD UREA NITROGEN 28.3 mg/dL (7-18)
[2023-10-28 22:16] LABS: CREATININE 1.5 mg/dL (0.55-1.3); PHOSPHOROUS 4.1 mg/dL (2.5-4.9)
[2023-10-28 22:17] LABS: BILIRUBIN,TOTAL 0.2 mg/dL (0.2-1); TOT PROT 6.2 g/dl (6.4-8.2)
[2023-10-28 22:20] LABS: MAGNESIUM 2.2 mg/dL (1.8-2.4)
[2023-10-28 22:22] LABS: BASO % 0.5 % (0-2.0); EOS % 3.7 % (0-4.5); HEMATOCRIT 19.2 % (32.4-45.2); LYMPH % 14.4 % (8-40); MCH 21.8 pg (25.7-33.7); MEAN CELL VOLUME 77.8 fl (80-96); MEAN PLT VOLUME 8.5 fl (7.5-11.1); MONO % 5.5 % (3.8-10.2); NEUT % 75.9 % (42.8-82.8); PLATELET COUNT 269 10^3/uL (134-434); RBC 2.47 M/mm3 (3.60-5.2); RDW 19.9 % (11.6-15.6); WHITE BLOOD COUNT 13.1 K/mm3 (4.0-10.0)
[2023-10-28 22:26] LABS: HEMOGLOBIN 5.4 GM/dL (10.7-15.3)
[2023-10-28] MEDS ORDERED: PANTOPRAZOLE SODIUM 40 MG VIAL ONE (22:41)
[2023-10-28] MEDS: PANTOPRAZOLE SODIUM 40 MG VIAL IVPUSH ONE (22:54)
[2023-10-28] MEDS: LACTATED RINGERS SOLUTION 1000 ML INFUS.BAG IV ONE (22:54)
[2023-10-28 23:00] LABS: EPI CELLS 4 /uL (0-25.1); HYALINE CASTS 1 /uL (0-3.1); PH,URINE 5.5 (5.0-8.0); URINE APPEARANCE CLOUDY; URINE BACTERIA 8711 /uL (0-1359); URINE BILIRUBIN NEGATIVE (NEGATIVE); URINE COLOR YELLOW; URINE GLUCOSE (UA) NEGATIVE (NEGATIVE); URINE KETONE NEGATIVE (NEGATIVE); URINE LEUK ESTERASE 3+ (NEGATIVE); URINE NITRITE NEGATIVE (NEGATIVE); URINE PROTEIN 2+ (NEGATIVE); URINE UROBILINOGEN 0.2 mg/dL (0.2-1.0); URINE WBC 786 /uL (0-25.8)
[2023-10-28] MEDS: VANCOMYCIN 1,000 MG in DEXTROSE 5%-WATER - 250 ML IVPB ONE (23:00)
[2023-10-28] MEDS ORDERED: VANCOMYCIN 1 GRAM (PRE-DOCKED) 1,000 MG/250 ML BAG IVPB ONE (23:05)
[2023-10-29 00:02] LABS: ANISOCYTOSIS 1+; MACROCYTOSIS 1+; OVALOCYTE 1+
[2023-10-29 00:18] LABS: PLATELET ESTIMATE ADEQUATE
[2023-10-29] MEDS ORDERED: MEROPENEM 1 GM VIAL (RESTRICTED TO ID) IVPB ONE ×2 (00:25→09:00)
[2023-10-29] MEDS: CEFEPIME HCL 1 GM VIAL (RESTRICTED TO ID) IVPB ONE (00:31)
[2023-10-29] MEDS: MEROPENEM 1 GM in DEXTROSE 5%-WATER 100 ML IVPB ONE (00:38)
[2023-10-29 02:12] LABS: ERYTHROCYTE SEDIMENTATION RATE 79 mm/hr (0-30)
[2023-10-29] MEDS ORDERED: ALBUTEROL SO4 0.083% IH SOL 2.5 MG/3 ML VIAL.NEB. NEB PRN (05:58)
[2023-10-29] MEDS ORDERED: GABAPENTIN 400 MG CAPSULE ONE (06:07)
[2023-10-29] MEDS: GABAPENTIN 400 MG CAPSULE PO SCH (06:25)
[2023-10-29 08:17] LABS: BASO % 0.7 % (0-2.0); EOS % 4.6 % (0-4.5); HEMATOCRIT 25.7 % (32.4-45.2); HEMOGLOBIN 7.4 GM/dL (10.7-15.3); LYMPH % 14.5 % (8-40); MCH 23.2 pg (25.7-33.7); MCHC 28.8 g/dl (32.0-36.0); MEAN CELL VOLUME 80.6 fl (80-96); MEAN PLT VOLUME 8.1 fl (7.5-11.1); MONO % 6.1 % (3.8-10.2); NEUT % 74.1 % (42.8-82.8); PLATELET COUNT 281 10^3/uL (134-434); RBC 3.19 M/mm3 (3.60-5.2); RDW 19.7 % (11.6-15.6); WHITE BLOOD COUNT 12.5 K/mm3 (4.0-10.0)
[2023-10-29 08:34] LABS: POTASSIUM 4.2 mmol/L (3.5-5.1)
[2023-10-29 08:37] LABS: CALCIUM 8.1 mg/dL (8.5-10.1)
[2023-10-29 08:38] LABS: ALBUMIN 2.2 g/dl (3.4-5.0); BLOOD UREA NITROGEN 27.2 mg/dL (7-18)
[2023-10-29 08:41] LABS: CREATININE 1.6 mg/dL (0.55-1.3)
[2023-10-29 08:43] LABS: BILIRUBIN,TOTAL 0.4 mg/dL (0.2-1); TOT PROT 6.4 g/dl (6.4-8.2)
[2023-10-29] MEDS ORDERED: VANCOMYCIN/WATER FOR INJ (PEG) 1,000 MG/200 ML BAG IVPB SCH (09:00)
[2023-10-29] MEDS: PANTOPRAZOLE SODIUM 40 MG VIAL IVPUSH SCH (09:20)
[2023-10-29] MEDS: MEROPENEM 1 GM in DEXTROSE 5%-WATER 100 ML IVPB SCH (09:25)
[2023-10-29] MEDS: BUDESONIDE 0.5 MG/2 ML INH SUSP VIAL NEB SCH (09:27)
[2023-10-29] MEDS ORDERED: ACETAMINOPHEN 1000 MG/100 ML BAG IVPB PRN (09:31)
[2023-10-29] MEDS: VANCOMYCIN/WATER FOR INJ (PEG) 1,000 MG/200 ML BAG IVPB SCH (11:43)
[2023-10-30 07:38] LABS: BASO % 0.5 % (0-2.0); EOS % 5.2 % (0-4.5); HEMATOCRIT 23.3 % (32.4-45.2); MCH 22.8 pg (25.7-33.7); MEAN CELL VOLUME 81.6 fl (80-96); MEAN PLT VOLUME 8.5 fl (7.5-11.1); MONO % 5.9 % (3.8-10.2); NEUT % 78.4 % (42.8-82.8); PLATELET COUNT 239 10^3/uL (134-434); RBC 2.85 M/mm3 (3.60-5.2); RDW 19.5 % (11.6-15.6); RETICULOCYTES 5.03 % (0.5-1.5); WHITE BLOOD COUNT 11.3 K/mm3 (4.0-10.0)
[2023-10-30 07:53] LABS: POTASSIUM 4.2 mmol/L (3.5-5.1)
[2023-10-30 07:59] LABS: HEMOGLOBIN 6.5 GM/dL (10.7-15.3)
[2023-10-30 08:00] LABS: ALBUMIN 1.9 g/dl (3.4-5.0)
[2023-10-30 08:01] LABS: BLOOD UREA NITROGEN 25.3 mg/dL (7-18)
[2023-10-30 08:03] LABS: CREATININE 1.5 mg/dL (0.55-1.3)
[2023-10-30 08:05] LABS: BILIRUBIN,TOTAL 0.2 mg/dL (0.2-1); TOT PROT 5.6 g/dl (6.4-8.2)
[2023-10-30] MEDS: FUROSEMIDE 40 MG/4 ML INJECTABLE VIAL IVPUSH SCH (10:12)
[2023-10-30] MEDS: MEROPENEM 1 GM in DEXTROSE 5%-WATER 100 ML IVPB SCH (11:50)
[2023-10-30] MEDS: VANCOMYCIN/WATER FOR INJ (PEG) 1,000 MG/200 ML BAG IVPB SCH (12:25)
[2023-10-30] MEDS: BUDESONIDE/FORMETEROL FUMARATE 160/4.5 mcg INHALER IH SCH (22:32)
[2023-10-31] MEDS: oxyCODONE HCL 5 MG TABLET PO ONE (01:29)
[2023-10-31 06:55] LABS: HEMATOCRIT 29.3 % (32.4-45.2); HEMOGLOBIN 8.7 GM/dL (10.7-15.3); MCH 24.5 pg (25.7-33.7); MCHC 29.9 g/dl (32.0-36.0); MEAN CELL VOLUME 81.9 fl (80-96); MEAN PLT VOLUME 8.5 fl (7.5-11.1); PLATELET COUNT 242 10^3/uL (134-434); RBC 3.57 M/mm3 (3.60-5.2); RDW 18.7 % (11.6-15.6)
[2023-10-31 07:12] LABS: POTASSIUM 4.3 mmol/L (3.5-5.1)
[2023-10-31 07:16] LABS: ALBUMIN 2.1 g/dl (3.4-5.0); BLOOD UREA NITROGEN 22.6 mg/dL (7-18)
[2023-10-31 07:19] LABS: CREATININE 1.7 mg/dL (0.55-1.3)
[2023-10-31 07:21] LABS: BILIRUBIN,TOTAL 0.3 mg/dL (0.2-1); TOT PROT 6.1 g/dl (6.4-8.2)
[2023-10-31] MEDS: oxyCODONE HCL 5 MG TABLET PO PRN (10:17)
[2023-10-31] MEDS: ACETAMINOPHEN 1000 MG/100 ML BAG IVPB PRN (10:18)
[2023-10-31] MEDS: VITAMINS A AND D TOPICAL OINTMENT 60 GM TUBE TP SCH (10:41)
[2023-10-31] MEDS: NYSTATIN 100,000 UNIT/GM TOPICAL CREAM 15 GM TUBE TP SCH (10:41)
[2023-10-31 11:21] LABS: ARTERIAL BLD GAS O2 SATURATION 96.7 % (95-98); ARTERIAL BLOOD GAS BASE EXCESS 4.6 mmol/L (-2-2); ARTERIAL BLOOD GAS PO2 103.4 mmHg (80-100); ARTERIAL BLOOD GAS pH 7.268 (7.350-7.450)
[2023-10-31 11:23] LABS: ALLENS TEST POSITIVE
[2023-10-31] MEDS: FLUCONAZOLE 100 MG TABLET (UD) PO ONE (18:06)
[2023-10-31] MEDS: VANCOMYCIN 1,000 MG in DEXTROSE 5%-WATER - 250 ML IVPB SCH (22:04)
[2023-10-31] MEDS: MEROPENEM 1 GM in DEXTROSE 5%-WATER 100 ML IVPB SCH (22:04)
[2023-10-31] MEDS ORDERED: VITAMINS A AND D TOPICAL OINTMENT 60 GM TUBE TP SCH (22:25)
[2023-11-01 11:50] LABS: HEMATOCRIT 29.9 % (32.4-45.2); MCH 24.5 pg (25.7-33.7); MEAN CELL VOLUME 81.9 fl (80-96); MEAN PLT VOLUME 8.7 fl (7.5-11.1); PLATELET COUNT 241 10^3/uL (134-434); RBC 3.65 M/mm3 (3.60-5.2); RDW 18.8 % (11.6-15.6)
[2023-11-01 12:01] LABS: POTASSIUM 4.5 mmol/L (3.5-5.1)
[2023-11-01 12:03] LABS: BLOOD UREA NITROGEN 21.8 mg/dL (7-18); CALCIUM 8.5 mg/dL (8.5-10.1)
[2023-11-01 12:06] LABS: CREATININE 1.4 mg/dL (0.55-1.3)
[2023-11-01 12:08] LABS: BILIRUBIN,TOTAL 0.2 mg/dL (0.2-1); TOT PROT 6.3 g/dl (6.4-8.2)
[2023-11-01] MEDS: BISACODYL 5 MG TABLET.DR (FP) PO ONE (15:21)
[2023-11-01] MEDS: PEG 3350/NA SULF BICARB CL/KCL 4000 ML SOLN.RECON PO ONE (15:23)
[2023-11-03 08:00] LABS: POTASSIUM 4.1 mmol/L (3.5-5.1)
[2023-11-03 08:33] LABS: HEMATOCRIT 27.3 % (32.4-45.2); HEMOGLOBIN 8.3 GM/dL (10.7-15.3); MCH 24.4 pg (25.7-33.7); MCHC 30.6 g/dl (32.0-36.0); MEAN CELL VOLUME 79.7 fl (80-96); MEAN PLT VOLUME 8.4 fl (7.5-11.1); PLATELET COUNT 223 10^3/uL (134-434); RBC 3.42 M/mm3 (3.60-5.2); RDW 18.9 % (11.6-15.6); WHITE BLOOD COUNT 8.7 K/mm3 (4.0-10.0)
[2023-11-03 08:36] LABS: ALBUMIN 1.9 g/dl (3.4-5.0); BLOOD UREA NITROGEN 17.3 mg/dL (7-18); CALCIUM 8.3 mg/dL (8.5-10.1)
[2023-11-03 08:39] LABS: CREATININE 1.2 mg/dL (0.55-1.3)
[2023-11-03 08:42] LABS: BILIRUBIN,TOTAL 0.4 mg/dL (0.2-1); TOT PROT 5.9 g/dl (6.4-8.2)
[2023-11-03] MEDS: ACETAMINOPHEN 1000 MG/100 ML BAG IVPB PRN (10:31)
[2023-11-03 16:54] VITALS: BMI 53.3
[2023-11-03] MEDS: POLYETHYLENE GLYCOL 3350 255 GM BTL PO ONE (17:30)
[2023-11-03] MEDS: IRON SUCROSE INJECTION 200 MG in SODIUM CHLORIDE 90 ML IVPB ONE (18:09)
[2023-11-03] MEDS: BISACODYL 5 MG TABLET.DR (FP) PO ONE (22:00)
[2023-11-04 07:53] LABS: INR 1.18 (0.83-1.09); PROTHROMBIN TIME (PATIENT) 13.7 SEC (9.7-13.0)
[2023-11-04 07:54] LABS: BASO % 0.8 % (0-2.0); EOS % 6.5 % (0-4.5); HEMATOCRIT 29.5 % (32.4-45.2); HEMOGLOBIN 8.8 GM/dL (10.7-15.3); LYMPH % 19.6 % (8-40); MCH 24.1 pg (25.7-33.7); MEAN CELL VOLUME 80.3 fl (80-96); MEAN PLT VOLUME 8.6 fl (7.5-11.1); MONO % 6.3 % (3.8-10.2); NEUT % 66.8 % (42.8-82.8); PLATELET COUNT 243 10^3/uL (134-434); RBC 3.67 M/mm3 (3.60-5.2); RDW 18.4 % (11.6-15.6); WHITE BLOOD COUNT 7.4 K/mm3 (4.0-10.0)
[2023-11-04 08:15] LABS: POTASSIUM 4.2 mmol/L (3.5-5.1)
[2023-11-04 08:25] LABS: CALCIUM 8.2 mg/dL (8.5-10.1)
[2023-11-04 08:26] LABS: BLOOD UREA NITROGEN 13.1 mg/dL (7-18)
[2023-11-04 08:29] LABS: CREATININE 1.1 mg/dL (0.55-1.3)
[2023-11-04 08:31] LABS: BILIRUBIN,TOTAL 0.2 mg/dL (0.2-1); TOT PROT 6.2 g/dl (6.4-8.2)
[2023-11-04] MEDS: PANTOPRAZOLE 40 MG TABLET PO SCH (10:56)
[2023-11-04 22:07] VITALS: RESP 18
[2023-11-05 06:11] VITALS: TEMP 98.6
[2023-11-05 07:18] LABS: HEMATOCRIT 30.9 % (32.4-45.2); MCH 23.6 pg (25.7-33.7); MEAN CELL VOLUME 81.4 fl (80-96); MEAN PLT VOLUME 8.3 fl (7.5-11.1); PLATELET COUNT 225 10^3/uL (134-434); RBC 3.79 M/mm3 (3.60-5.2); RDW 18.2 % (11.6-15.6)
[2023-11-05 07:23] LABS: POTASSIUM 4.3 mmol/L (3.5-5.1)
[2023-11-05 07:28] LABS: CALCIUM 7.8 mg/dL (8.5-10.1)
[2023-11-05 07:31] LABS: CREATININE 1.2 mg/dL (0.55-1.3)
[2023-11-05 07:33] LABS: BILIRUBIN,TOTAL 0.2 mg/dL (0.2-1); TOT PROT 6.1 g/dl (6.4-8.2)
[2023-11-05 19:41] VITALS: BP 127/57; PULSE 85
== END 2023-11-05 19:00 | DRG 813 ==
LOC: JER 19:22 → JERBED 23:03 → J2W 10-29 10:23
PROVIDERS: ADMIT Internal Medicine; ATTEND Family Medicine
PROC: 30233N1 Transfusion of Nonautologous Red Blood Cells into Peripheral Vein, Percutaneous Approach (ICD-10-PCS; principal; 2023-10-28)
PROC: 0DB98ZX Excision of Duodenum, Via Natural or Artificial Opening Endoscopic, Diagnostic (ICD-10-PCS; 2023-10-28)
PROC: 0DB68ZX Excision of Stomach, Via Natural or Artificial Opening Endoscopic, Diagnostic (ICD-10-PCS; 2023-11-03)
PROC: 0DBL8ZZ Excision of Transverse Colon, Via Natural or Artificial Opening Endoscopic (ICD-10-PCS; 2023-11-04)
DX: D68.32 Hemorrhagic disorder due to extrinsic circulating anticoagulants (principal); K31.811 Angiodysplasia of stomach and duodenum with bleeding; L03.116 Cellulitis of left lower limb; L03.115 Cellulitis of right lower limb; N17.9 Acute kidney failure, unspecified; N39.0 Urinary tract infection, site not specified; I50.32 Chronic diastolic (congestive) heart failure; Z68.43 Body mass index [BMI] 50.0-59.9, adult; K55.1 Chronic vascular disorders of intestine; E11.9 Type 2 diabetes mellitus without complications; J44.9 Chronic obstructive pulmonary disease, unspecified; R50.9 Fever, unspecified; G47.30 Sleep apnea, unspecified; R00.0 Tachycardia, unspecified; K76.0 Fatty (change of) liver, not elsewhere classified; D50.9 Iron deficiency anemia, unspecified; D12.3 Benign neoplasm of transverse colon; K64.8 Other hemorrhoids; K42.9 Umbilical hernia without obstruction or gangrene; L89.322 Pressure ulcer of left buttock, stage 2; I11.0 Hypertensive heart disease with heart failure; E78.5 Hyperlipidemia, unspecified; K21.9 Gastro-esophageal reflux disease without esophagitis; E66.01 Morbid (severe) obesity due to excess calories; Z85.42 Personal history of malignant neoplasm of other parts of uterus; Z88.0 Allergy status to penicillin
CPT/HCPCS: 0241U-QW; 36415; 36430; 36600; 71045-TC-FY; 74270-TC-FY; 80048; 80053; 81003; 82272; 82728; 82803; 82962; 83540; 83550; 83615; 83735; 84100; 85025; 85027; 85045; 85610; 85651; 85730; 86140; 86850; 86900; 86901; 86922; 87040; 87086; 87186; 93005; 93010; 94640; 94660; 99285-25; J0131; J1756; P9058

== ENCOUNTER 2023-12-07 21:30 | Inpatient (IN) | payer OTHER ==
[2023-12-07] MEDS ORDERED: ALBUTEROL SO4 2.5/IPRATROPIUM 0.5 INH SOL 3 ML VIAL.NEB. NEB ONE (22:11)
[2023-12-07] MEDS: ALBUTEROL SO4 2.5/IPRATROPIUM 0.5 INH SOL 3 ML VIAL.NEB. NEB ONE (23:12)
[2023-12-07] MEDS ORDERED: methylPREDNISolone NA SUCC 125 MG/2 ML VIAL ONE (23:15)
[2023-12-07] MEDS: methylPREDNISolone NA SUCC 125 MG/2 ML VIAL IVPUSH ONE (23:19)
[2023-12-07 23:34] LABS: BASO % 0.3 % (0-2.0); EOS % 4.2 % (0-4.5); HEMATOCRIT 25.9 % (32.4-45.2); HEMOGLOBIN 7.4 GM/dL (10.7-15.3); MCH 23.2 pg (25.7-33.7); MCHC 28.5 g/dl (32.0-36.0); MEAN CELL VOLUME 81.4 fl (80-96); MEAN PLT VOLUME 8.3 fl (7.5-11.1); MONO % 5.6 % (3.8-10.2); NEUT % 72.9 % (42.8-82.8); PLATELET COUNT 195 10^3/uL (134-434); RBC 3.18 M/mm3 (3.60-5.2); WHITE BLOOD COUNT 10.3 K/mm3 (4.0-10.0)
[2023-12-07 23:36] LABS: VENOUS BASE EXCESS 5.7 mmol/L (-2-2); VENOUS O2 SATURATION 82.1 % (70-80)
[2023-12-07 23:39] LABS: VENOUS PCO2 94.3 mmHg (38-52); VENOUS PH 7.191 (7.310-7.410)
[2023-12-07 23:43] LABS: INR 1.17 (0.83-1.09); PROTHROMBIN TIME (PATIENT) 13.5 SEC (9.7-13.0)
[2023-12-07 23:46] LABS: ACTIVATED PTT 27.9 SECONDS (25.2-36.5)
[2023-12-07 23:54] LABS: POTASSIUM 4.8 mmol/L (3.5-5.1)
[2023-12-07 23:56] LABS: CALCIUM 8.2 mg/dL (8.5-10.1)
[2023-12-07 23:57] LABS: ALBUMIN 2.2 g/dl (3.4-5.0); BLOOD UREA NITROGEN 22.9 mg/dL (7-18)
[2023-12-07 23:59] LABS: CREATININE 1.6 mg/dL (0.55-1.3)
[2023-12-08 00:01] LABS: BILIRUBIN,TOTAL 0.2 mg/dL (0.2-1); TOT PROT 7.7 g/dl (6.4-8.2)
[2023-12-08] MEDS ORDERED: MAGNESIUM SULFATE IN WATER 2 GM/50 ML IVPB IVPB ONE (00:59)
[2023-12-08] MEDS: MAGNESIUM SULFATE IN WATER 2 GM/50 ML IVPB IVPB ONE (01:22)
[2023-12-08] MEDS ORDERED: ACETAMINOPHEN INJECTION 100 ML IVPB ONE (01:56)
[2023-12-08] MEDS: ACETAMINOPHEN 1000 MG/100 ML BAG IVPB ONE (02:01)
[2023-12-08] MEDS ORDERED: ALBUTEROL SO4 0.083% IH SOL 2.5 MG/3 ML VIAL.NEB. NEB ONE (02:03)
[2023-12-08 02:28] LABS: EPI CELLS 3 /uL (0-25.1); HYALINE CASTS 0 /uL (0-3.1); PH,URINE 5.5 (5.0-8.0); URINE APPEARANCE CLOUDY; URINE BACTERIA 7575 /uL (0-1359); URINE BILIRUBIN NEGATIVE (NEGATIVE); URINE COLOR YELLOW; URINE GLUCOSE (UA) NEGATIVE (NEGATIVE); URINE KETONE NEGATIVE (NEGATIVE); URINE LEUK ESTERASE 2+ (NEGATIVE); URINE NITRITE POSITIVE (NEGATIVE); URINE PROTEIN 2+ (NEGATIVE); URINE RBC 224 /uL (0-23.9); URINE UROBILINOGEN 0.2 mg/dL (0.2-1.0); URINE WBC 1207 /uL (0-25.8)
[2023-12-08] MEDS: ALBUTEROL SO4 0.083% IH SOL 2.5 MG/3 ML VIAL.NEB. NEB SCH (02:32)
[2023-12-08] MEDS ORDERED: VANCOMYCIN 1 GRAM (PRE-DOCKED) 1,000 MG/250 ML BAG IVPB ONE (02:35)
[2023-12-08] MEDS: VANCOMYCIN 1,000 MG in DEXTROSE 5%-WATER - 250 ML IVPB ONE (02:44)
[2023-12-08] MEDS ORDERED: MEROPENEM 1 GM VIAL (RESTRICTED TO ID) IVPB ONE (05:00)
[2023-12-08] MEDS: MEROPENEM 1 GM in DEXTROSE 5%-WATER 100 ML IVPB ONE (05:11)
[2023-12-08 05:23] LABS: ARTERIAL BLD GAS O2 SATURATION 96.4 % (95-98); ARTERIAL BLOOD GAS BASE EXCESS 4.3 mmol/L (-2-2); ARTERIAL BLOOD GAS PO2 96.7 mmHg (80-100); ARTERIAL BLOOD GAS pH 7.297 (7.350-7.450)
[2023-12-08] MEDS ORDERED: GABAPENTIN 400 MG CAPSULE ONE ×2 (06:54→14:04)
[2023-12-08] MEDS: GABAPENTIN 400 MG CAPSULE PO SCH (06:59)
[2023-12-08 07:36] LABS: HEMATOCRIT 23.1 % (32.4-45.2); MCH 23.7 pg (25.7-33.7); MCHC 29.4 g/dl (32.0-36.0); MEAN CELL VOLUME 80.6 fl (80-96); MEAN PLT VOLUME 8.7 fl (7.5-11.1); PLATELET COUNT 179 10^3/uL (134-434); RBC 2.87 M/mm3 (3.60-5.2); RDW 19.3 % (11.6-15.6)
[2023-12-08 07:40] LABS: HEMOGLOBIN 6.8 GM/dL (10.7-15.3)
[2023-12-08 07:43] LABS: POTASSIUM 4.9 mmol/L (3.5-5.1)
[2023-12-08 07:50] LABS: BLOOD UREA NITROGEN 23.8 mg/dL (7-18); CALCIUM 8.2 mg/dL (8.5-10.1)
[2023-12-08 07:53] LABS: CREATININE 1.5 mg/dL (0.55-1.3)
[2023-12-08 07:54] LABS: BILIRUBIN,TOTAL 0.2 mg/dL (0.2-1); TOT PROT 6.7 g/dl (6.4-8.2)
[2023-12-08 09:13] LABS: ANISOCYTOSIS 1+; MACROCYTOSIS 1+
[2023-12-08] MEDS ORDERED: FUROSEMIDE 20 MG TABLET (FP) PO SCH (10:00)
[2023-12-08] MEDS ORDERED: FAMOTIDINE 20 MG TABLET PO SCH (10:00)
[2023-12-08] MEDS ORDERED: ALBUTEROL SO4 2.5/IPRATROPIUM 0.5 INH SOL 3 ML VIAL.NEB. NEB ONE ×2 (10:16→12:17)
[2023-12-08] MEDS ORDERED: FUROSEMIDE 40 MG/4 ML INJECTABLE VIAL ONE (10:16)
[2023-12-08] MEDS ORDERED: methylPREDNISolone NA SUCC 40 MG/1 ML VIAL ONE (10:16)
[2023-12-08] MEDS ORDERED: PANTOPRAZOLE SODIUM 40 MG VIAL ONE (10:17)
[2023-12-08] MEDS: FUROSEMIDE 40 MG/4 ML INJECTABLE VIAL IVPUSH ONE (10:29)
[2023-12-08] MEDS: ALBUTEROL SO4 2.5/IPRATROPIUM 0.5 INH SOL 3 ML VIAL.NEB. NEB SCH (10:29)
[2023-12-08] MEDS: NYSTATIN 100000 UNIT/GM TOPICAL OINTMENT 15 GM TUBE TP SCH (10:30)
[2023-12-08] MEDS: FUROSEMIDE 40 MG/4 ML INJECTABLE VIAL IVPUSH SCH (10:30)
[2023-12-08] MEDS: methylPREDNISolone NA SUCC 40 MG/1 ML VIAL IVPUSH SCH (10:30)
[2023-12-08] MEDS: FERROUS SO4 325 MG TABLET (FP) PO SCH (10:30)
[2023-12-08] MEDS: PANTOPRAZOLE SODIUM 40 MG VIAL IVPUSH SCH (10:31)
[2023-12-08] MEDS: BUDESONIDE/FORMETEROL FUMARATE 160/4.5 mcg INHALER IH SCH (10:31)
[2023-12-08] MEDS ORDERED: ALBUTEROL SO4 2.5/IPRATROPIUM 0.5 INH SOL 3 ML VIAL.NEB. NEB PRN (14:02)
[2023-12-08 17:30] VITALS: RESP 18; BMI 49.1
[2023-12-08] MEDS: oxyCODONE HCL 5 MG TABLET PO PRN (17:38)
[2023-12-08] MEDS: MEROPENEM 1 GM in DEXTROSE 5%-WATER 100 ML IVPB SCH (17:39)
[2023-12-08] MEDS: ACETAMINOPHEN 325 MG TABLET (FP) PO PRN (22:15)
[2023-12-09] MEDS: IRON SUCROSE INJECTION 200 MG in SODIUM CHLORIDE 100 ML IVPB ONE (10:37)
[2023-12-09 12:34] LABS: BASO % 0.5 % (0-2.0); EOS % 0.7 % (0-4.5); HEMATOCRIT 26.6 % (32.4-45.2); HEMOGLOBIN 8.1 GM/dL (10.7-15.3); LYMPH % 16.7 % (8-40); MCH 24.5 pg (25.7-33.7); MCHC 30.4 g/dl (32.0-36.0); MEAN CELL VOLUME 80.5 fl (80-96); MEAN PLT VOLUME 8.7 fl (7.5-11.1); MONO % 6.5 % (3.8-10.2); NEUT % 75.6 % (42.8-82.8); PLATELET COUNT 187 10^3/uL (134-434); RBC 3.31 M/mm3 (3.60-5.2); RDW 18.4 % (11.6-15.6); WHITE BLOOD COUNT 9.7 K/mm3 (4.0-10.0)
[2023-12-09 13:03] LABS: POTASSIUM 4.4 mmol/L (3.5-5.1)
[2023-12-09 13:23] LABS: CALCIUM 8.4 mg/dL (8.5-10.1)
[2023-12-09 13:24] LABS: ALBUMIN 2.2 g/dl (3.4-5.0); BLOOD UREA NITROGEN 28.9 mg/dL (7-18)
[2023-12-09 13:26] LABS: CREATININE 1.6 mg/dL (0.55-1.3)
[2023-12-09 13:28] LABS: BILIRUBIN,TOTAL 0.3 mg/dL (0.2-1); TOT PROT 6.9 g/dl (6.4-8.2)
[2023-12-10 10:06] LABS: HEMATOCRIT 30.2 % (32.4-45.2); MCH 24.2 pg (25.7-33.7); MCHC 29.7 g/dl (32.0-36.0); MEAN CELL VOLUME 81.4 fl (80-96); MEAN PLT VOLUME 8.4 fl (7.5-11.1); PLATELET COUNT 212 10^3/uL (134-434); RBC 3.71 M/mm3 (3.60-5.2); RDW 18.6 % (11.6-15.6); WHITE BLOOD COUNT 8.6 K/mm3 (4.0-10.0)
[2023-12-10 10:32] LABS: POTASSIUM 4.5 mmol/L (3.5-5.1)
[2023-12-10] MEDS: IRON SUCROSE INJECTION 200 MG in SODIUM CHLORIDE 100 ML IVPB ONE (10:33)
[2023-12-10 10:37] LABS: ALBUMIN 2.4 g/dl (3.4-5.0); BLOOD UREA NITROGEN 29.5 mg/dL (7-18); CALCIUM 8.5 mg/dL (8.5-10.1)
[2023-12-10 10:41] LABS: CREATININE 1.7 mg/dL (0.55-1.3)
[2023-12-10 10:42] LABS: BILIRUBIN,TOTAL 0.2 mg/dL (0.2-1)
[2023-12-10 10:43] LABS: TOT PROT 7.4 g/dl (6.4-8.2)
[2023-12-10 20:03] VITALS: BP 120/59; PULSE 96; TEMP 98.4
[2023-12-11] MEDS ORDERED: IRON SUCROSE INJECTION 200 MG in SODIUM CHLORIDE 100 ML IVPB ONE (10:00)
== END 2023-12-10 18:00 | DRG 189 ==
LOC: JER 21:30 → JERBED 12-08 04:03 → J6S 12-08 16:30
PROVIDERS: ADMIT Internal Medicine; ATTEND Family Medicine
PROC: 30233N1 Transfusion of Nonautologous Red Blood Cells into Peripheral Vein, Percutaneous Approach (ICD-10-PCS; principal; 2023-12-08)
DX: J96.22 Acute and chronic respiratory failure with hypercapnia (principal); J44.1 Chronic obstructive pulmonary disease with (acute) exacerbation; Z68.45 Body mass index [BMI] 70 or greater, adult; E87.29 Other acidosis; N39.0 Urinary tract infection, site not specified; I50.32 Chronic diastolic (congestive) heart failure; N17.9 Acute kidney failure, unspecified; I13.0 Hypertensive heart and chronic kidney disease with heart failure and stage 1 through stage 4 chronic kidney disease, or unspecified chronic kidney disease; K59.00 Constipation, unspecified; R50.9 Fever, unspecified; K76.0 Fatty (change of) liver, not elsewhere classified; D64.9 Anemia, unspecified; J45.30 Mild persistent asthma, uncomplicated; G47.30 Sleep apnea, unspecified; K21.9 Gastro-esophageal reflux disease without esophagitis; E66.01 Morbid (severe) obesity due to excess calories; E11.22 Type 2 diabetes mellitus with diabetic chronic kidney disease; N18.9 Chronic kidney disease, unspecified; B96.20 Unspecified Escherichia coli [E. coli] as the cause of diseases classified elsewhere; Z85.42 Personal history of malignant neoplasm of other parts of uterus; Z86.718 Personal history of other venous thrombosis and embolism
CPT/HCPCS: 0241U-QW; 36415; 36430; 36600; 71045-TC-FY; 80053; 81003; 82272; 82728; 82803; 83540; 83550; 83605; 83880; 84484; 85025; 85027; 85610; 85730; 86922; 87040; 87086; 87186; 87635; 93005; 93010; 93970-TC; 94660; 99285-25; J0131; J1756; P9038; P9058

== ENCOUNTER 2024-01-31 10:16 | Inpatient (IN) | payer OTHER ==
[2024-01-31 11:37] LABS: BASO % 0.8 % (0-2.0); EOS % 3.8 % (0-4.5); HEMOGLOBIN 8.6 GM/dL (10.7-15.3); LYMPH % 12.8 % (8-40); MCH 24.4 pg (25.7-33.7); MCHC 28.6 g/dl (32.0-36.0); MEAN CELL VOLUME 85.2 fl (80-96); MEAN PLT VOLUME 8.6 fl (7.5-11.1); NEUT % 74.6 % (42.8-82.8); PLATELET COUNT 208 10^3/uL (134-434); RBC 3.52 M/mm3 (3.60-5.2); RDW 18.7 % (11.6-15.6); WHITE BLOOD COUNT 8.9 K/mm3 (4.0-10.0)
[2024-01-31] MEDS ORDERED: ACETAMINOPHEN INJECTION 100 ML IVPB ONE (11:50)
[2024-01-31] MEDS: ACETAMINOPHEN 1000 MG/100 ML BAG IVPB ONE (11:53)
[2024-01-31 12:01] LABS: POTASSIUM 4.9 mmol/L (3.5-5.1)
[2024-01-31 12:03] LABS: BLOOD UREA NITROGEN 17.7 mg/dL (7-18); CALCIUM 8.2 mg/dL (8.5-10.1); MAGNESIUM 2.4 mg/dL (1.8-2.4)
[2024-01-31 12:06] LABS: CREATININE 1.5 mg/dL (0.55-1.3)
[2024-01-31 12:08] LABS: BILIRUBIN,TOTAL 0.2 mg/dL (0.2-1); TOT PROT 6.4 g/dl (6.4-8.2)
[2024-01-31 13:17] LABS: VENOUS BASE EXCESS 2.3 mmol/L (-2-2); VENOUS PH 7.227 (7.310-7.410)
[2024-01-31 13:19] LABS: VENOUS PCO2 76.7 mmHg (38-52)
[2024-01-31 14:25] LABS: N-TERMINAL BNP 609.8 pg/ml (5-125)
[2024-01-31 17:18] LABS: EPI CELLS >36 /uL (0-25.1); HYALINE CASTS 13 /uL (0-3.1); URINE APPEARANCE CLOUDY; URINE BACTERIA 35 /uL (0-1359); URINE BILIRUBIN NEGATIVE (NEGATIVE); URINE COLOR YELLOW; URINE GLUCOSE (UA) NEGATIVE (NEGATIVE); URINE KETONE NEGATIVE (NEGATIVE); URINE LEUK ESTERASE 1+ (NEGATIVE); URINE NITRITE NEGATIVE (NEGATIVE); URINE PROTEIN 2+ (NEGATIVE); URINE RBC 43 /uL (0-23.9); URINE UROBILINOGEN 0.2 mg/dL (0.2-1.0); URINE WBC 198 /uL (0-25.8)
[2024-01-31 18:46] LABS: URINE CRYSTALS MODERATE /hpf
[2024-01-31] MEDS: BUDESONIDE 0.5 MG/2 ML INH SUSP VIAL NEB SCH (20:05)
[2024-01-31] MEDS: ALBUTEROL SO4 2.5/IPRATROPIUM 0.5 INH SOL 3 ML VIAL.NEB. NEB SCH (20:05)
[2024-01-31] MEDS: NYSTATIN 100000 UNIT/GM TOPICAL OINTMENT 15 GM TUBE TP SCH (22:32)
[2024-01-31] MEDS: HEPARIN NA (PORCINE) 5,000 UNITS/ML 1ML VIAL SQ SCH (22:32)
[2024-01-31] MEDS: GABAPENTIN 400 MG CAPSULE PO SCH (22:33)
[2024-01-31] MEDS: FAMOTIDINE 20 MG TABLET PO SCH (22:33)
[2024-02-01] MEDS: oxyCODONE HCL 5 MG TABLET PO PRN (02:15)
[2024-02-01] MEDS: FUROSEMIDE 40 MG/4 ML INJECTABLE VIAL IVPUSH SCH (05:43)
[2024-02-01] MEDS: ACETAMINOPHEN 325 MG TABLET (FP) PO PRN (05:43)
[2024-02-01 09:03] LABS: BASO % 0.8 % (0-2.0); EOS % 4.2 % (0-4.5); HEMOGLOBIN 7.8 GM/dL (10.7-15.3); MCH 24.5 pg (25.7-33.7); MEAN CELL VOLUME 84.6 fl (80-96); MEAN PLT VOLUME 8.7 fl (7.5-11.1); MONO % 6.8 % (3.8-10.2); NEUT % 70.2 % (42.8-82.8); PLATELET COUNT 197 10^3/uL (134-434); RBC 3.19 M/mm3 (3.60-5.2); RDW 18.3 % (11.6-15.6); WHITE BLOOD COUNT 7.7 K/mm3 (4.0-10.0)
[2024-02-01 09:19] LABS: POTASSIUM 5.5 mmol/L (3.5-5.1)
[2024-02-01 09:20] LABS: ALBUMIN 2.1 g/dl (3.4-5.0)
[2024-02-01 09:21] LABS: CALCIUM 8.2 mg/dL (8.5-10.1); MAGNESIUM 2.4 mg/dL (1.8-2.4)
[2024-02-01 09:25] LABS: CREATININE 1.7 mg/dL (0.55-1.3)
[2024-02-01 09:26] LABS: BILIRUBIN,TOTAL 0.2 mg/dL (0.2-1); TOT PROT 6.1 g/dl (6.4-8.2)
[2024-02-01 09:30] LABS: ARTERIAL BLD GAS O2 SATURATION 93.7 % (95-98); ARTERIAL BLOOD GAS PO2 81.1 mmHg (80-100); ARTERIAL BLOOD GAS pH 7.265 (7.350-7.450)
[2024-02-01 09:32] LABS: ALLENS TEST POSITIVE
[2024-02-01 09:33] LABS: VENT MODE ST
[2024-02-01 09:34] LABS: VENT RATE 14
[2024-02-01] MEDS: PANTOPRAZOLE SODIUM 40 MG VIAL IVPUSH SCH (09:59)
[2024-02-01] MEDS: methylPREDNISolone NA SUCC 40 MG/1 ML VIAL IVPUSH SCH (10:02)
[2024-02-02 10:37] LABS: BASO % 0.2 % (0-2.0); HEMATOCRIT 28.6 % (32.4-45.2); HEMOGLOBIN 8.4 GM/dL (10.7-15.3); LYMPH % 10.3 % (8-40); MCH 24.1 pg (25.7-33.7); MCHC 29.2 g/dl (32.0-36.0); MEAN CELL VOLUME 82.5 fl (80-96); MEAN PLT VOLUME 9.1 fl (7.5-11.1); MONO % 2.1 % (3.8-10.2); NEUT % 87.4 % (42.8-82.8); PLATELET COUNT 185 10^3/uL (134-434); RBC 3.47 M/mm3 (3.60-5.2); RDW 18.2 % (11.6-15.6); WHITE BLOOD COUNT 5.9 K/mm3 (4.0-10.0)
[2024-02-02 10:56] LABS: POTASSIUM 5.3 mmol/L (3.5-5.1)
[2024-02-02 10:58] LABS: CALCIUM 8.6 mg/dL (8.5-10.1)
[2024-02-02 10:59] LABS: ALBUMIN 2.2 g/dl (3.4-5.0); BLOOD UREA NITROGEN 29.6 mg/dL (7-18)
[2024-02-02 11:02] LABS: CREATININE 1.8 mg/dL (0.55-1.3)
[2024-02-02 11:03] LABS: BILIRUBIN,TOTAL 0.2 mg/dL (0.2-1); TOT PROT 6.8 g/dl (6.4-8.2)
[2024-02-02 16:13] VITALS: BMI 49.8
[2024-02-03 01:18] VITALS: RESP 18
[2024-02-03] MEDS: FUROSEMIDE 40 MG/4 ML INJECTABLE VIAL IVPUSH ONE (08:18)
[2024-02-03 08:39] LABS: HEMATOCRIT 27.6 % (32.4-45.2); HEMOGLOBIN 8.4 GM/dL (10.7-15.3); LYMPH % 9.3 % (8-40); MCH 24.4 pg (25.7-33.7); MCHC 30.3 g/dl (32.0-36.0); MEAN CELL VOLUME 80.3 fl (80-96); MEAN PLT VOLUME 9.1 fl (7.5-11.1); MONO % 4.7 % (3.8-10.2); PLATELET COUNT 191 10^3/uL (134-434); RBC 3.43 M/mm3 (3.60-5.2); RDW 18.4 % (11.6-15.6); WHITE BLOOD COUNT 6.7 K/mm3 (4.0-10.0)
[2024-02-03 08:51] LABS: POTASSIUM 5.1 mmol/L (3.5-5.1)
[2024-02-03 08:54] LABS: CALCIUM 8.6 mg/dL (8.5-10.1)
[2024-02-03 08:55] LABS: ALBUMIN 2.2 g/dl (3.4-5.0); BLOOD UREA NITROGEN 41.7 mg/dL (7-18)
[2024-02-03 08:58] LABS: CREATININE 1.7 mg/dL (0.55-1.3)
[2024-02-03 08:59] LABS: TOT PROT 6.6 g/dl (6.4-8.2)
[2024-02-03 09:00] LABS: BILIRUBIN,TOTAL 0.2 mg/dL (0.2-1)
[2024-02-03] MEDS: predniSONE 10 MG TABLET (UD) PO SCH (10:07)
[2024-02-03] MEDS: PANTOPRAZOLE 40 MG TABLET PO SCH (10:08)
[2024-02-03] MEDS: IRON SUCROSE INJECTION 200 MG in SODIUM CHLORIDE 100 ML IVPB ONE (10:08)
[2024-02-03] MEDS: TORSEMIDE 20 MG TABLET (FP) PO SCH (10:08)
[2024-02-04 06:33] LABS: BASO % 0.1 % (0-2.0); HEMOGLOBIN 8.9 GM/dL (10.7-15.3); LYMPH % 10.2 % (8-40); MCH 24.8 pg (25.7-33.7); MCHC 30.8 g/dl (32.0-36.0); MEAN CELL VOLUME 80.4 fl (80-96); MEAN PLT VOLUME 8.7 fl (7.5-11.1); MONO % 2.6 % (3.8-10.2); NEUT % 87.1 % (42.8-82.8); PLATELET COUNT 189 10^3/uL (134-434); RBC 3.61 M/mm3 (3.60-5.2); RDW 17.8 % (11.6-15.6); WHITE BLOOD COUNT 6.4 K/mm3 (4.0-10.0)
[2024-02-04 06:45] LABS: POTASSIUM 4.7 mmol/L (3.5-5.1)
[2024-02-04 06:52] LABS: ALBUMIN 2.3 g/dl (3.4-5.0); BLOOD UREA NITROGEN 47.1 mg/dL (7-18); CALCIUM 8.4 mg/dL (8.5-10.1)
[2024-02-04 06:55] LABS: CREATININE 1.8 mg/dL (0.55-1.3)
[2024-02-04 06:57] LABS: BILIRUBIN,TOTAL 0.2 mg/dL (0.2-1); TOT PROT 6.8 g/dl (6.4-8.2)
[2024-02-04] MEDS: TORSEMIDE 20 MG TABLET (FP) PO SCH (10:15)
[2024-02-04 13:14] VITALS: BP 129/85; PULSE 85; TEMP 98
== END 2024-02-04 13:18 | DRG 291 ==
LOC: JER 10:16 → JERBED 15:35 → J4S 17:40
PROVIDERS: ADMIT Family Medicine; ATTEND Family Medicine
DX: I11.0 Hypertensive heart disease with heart failure (principal); I50.33 Acute on chronic diastolic (congestive) heart failure; J96.02 Acute respiratory failure with hypercapnia; Z68.43 Body mass index [BMI] 50.0-59.9, adult; J96.11 Chronic respiratory failure with hypoxia; K57.92 Diverticulitis of intestine, part unspecified, without perforation or abscess without bleeding; J44.1 Chronic obstructive pulmonary disease with (acute) exacerbation; E11.9 Type 2 diabetes mellitus without complications; G47.33 Obstructive sleep apnea (adult) (pediatric); E66.01 Morbid (severe) obesity due to excess calories; K21.9 Gastro-esophageal reflux disease without esophagitis; R79.89 Other specified abnormal findings of blood chemistry; G47.30 Sleep apnea, unspecified; E78.5 Hyperlipidemia, unspecified; E11.51 Type 2 diabetes mellitus with diabetic peripheral angiopathy without gangrene; D64.9 Anemia, unspecified; D25.9 Leiomyoma of uterus, unspecified; K59.00 Constipation, unspecified; K31.819 Angiodysplasia of stomach and duodenum without bleeding; Z85.42 Personal history of malignant neoplasm of other parts of uterus; Z99.81 Dependence on supplemental oxygen
CPT/HCPCS: 0241U-QW; 36415; 36600; 70450-TC; 71045-TC-FY; 80053; 80307; 81003; 82272; 82728; 82803; 82962; 83036; 83540; 83550; 83605; 83735; 83880; 84443; 84484; 85025; 87040; 87086; 87899; 93005; 93010; 94640; 94660; 99285-25; J0131; J1644; J1756

== ENCOUNTER 2024-05-14 18:30 | Inpatient (IN) | payer OTHER ==
[2024-05-14 19:15] VITALS: BMI 50.8
[2024-05-14] MEDS ORDERED: ACETAMINOPHEN INJECTION 100 ML IVPB ONE (20:30)
[2024-05-14 21:01] LABS: VENOUS BASE EXCESS 5.2 mmol/L (-2-2); VENOUS O2 SATURATION 73.1 % (70-80); VENOUS PCO2 60.3 mmHg (38-52); VENOUS PH 7.34 (7.310-7.410)
[2024-05-14 21:03] LABS: BASO % 0.7 % (0-2.0); EOS % 1.1 % (0-4.5); HEMATOCRIT 22.4 % (32.4-45.2); LYMPH % 5.8 % (8-40); MCH 26.3 pg (25.7-33.7); MCHC 30.4 g/dl (32.0-36.0); MEAN CELL VOLUME 86.5 fl (80-96); MEAN PLT VOLUME 9.3 fl (7.5-11.1); MONO % 4.9 % (3.8-10.2); NEUT % 87.5 % (42.8-82.8); PLATELET COUNT 228 10^3/uL (134-434); RBC 2.59 M/mm3 (3.60-5.2); RDW 19.3 % (11.6-15.6)
[2024-05-14 21:05] LABS: HEMOGLOBIN 6.8 GM/dL (10.7-15.3)
[2024-05-14 21:20] LABS: POTASSIUM 5.3 mmol/L (3.5-5.1)
[2024-05-14 21:22] LABS: BLOOD UREA NITROGEN 36.3 mg/dL (7-18); CALCIUM 7.7 mg/dL (8.5-10.1)
[2024-05-14 21:27] LABS: BILIRUBIN,TOTAL 0.3 mg/dL (0.2-1); TOT PROT 6.4 g/dl (6.4-8.2)
[2024-05-14 21:40] LABS: ANISOCYTOSIS 1+; MACROCYTOSIS 0; OVALOCYTE 1+; TARGET CELLS 2+
[2024-05-14 22:11] LABS: INR 1.26 (0.83-1.09); PROTHROMBIN TIME (PATIENT) 14.4 SEC (9.7-13.0)
[2024-05-14 22:14] LABS: ACTIVATED PTT 28.1 SECONDS (25.2-36.5)
[2024-05-14] MEDS: ACETAMINOPHEN 1000 MG/100 ML BAG IVPB ONE (23:00)
[2024-05-14] MEDS: SODIUM CHLORIDE 1,000 ML IV STA (23:00)
[2024-05-15] MEDS: SODIUM CHLORIDE 0.9% 500 ML INFUS.BAG IV ONE (02:15)
[2024-05-15] MEDS ORDERED: MEROPENEM 1 GM VIAL (RESTRICTED TO ID) IVPB ONE ×2 (02:46→22:24)
[2024-05-15] MEDS: MEROPENEM 1 GM in DEXTROSE 5%-WATER 100 ML IVPB ONE (02:52)
[2024-05-15 03:09] LABS: EPI CELLS 5 /uL (0-25.1); HYALINE CASTS 1 /uL (0-3.1); PH,URINE 5.5 (5.0-8.0); URINE APPEARANCE CLOUDY; URINE BACTERIA 8277 /uL (0-1359); URINE BILIRUBIN NEGATIVE (NEGATIVE); URINE COLOR YELLOW; URINE GLUCOSE (UA) NEGATIVE (NEGATIVE); URINE KETONE NEGATIVE (NEGATIVE); URINE LEUK ESTERASE 3+ (NEGATIVE); URINE NITRITE NEGATIVE (NEGATIVE); URINE PROTEIN 1+ (NEGATIVE); URINE UROBILINOGEN 0.2 mg/dL (0.2-1.0); URINE WBC 905 /uL (0-25.8)
[2024-05-15 06:13] LABS: BASO % 0.5 % (0-2.0); EOS % 1.5 % (0-4.5); HEMATOCRIT 19.7 % (32.4-45.2); LYMPH % 9.8 % (8-40); MCH 26.7 pg (25.7-33.7); MCHC 30.5 g/dl (32.0-36.0); MEAN CELL VOLUME 87.4 fl (80-96); MEAN PLT VOLUME 8.3 fl (7.5-11.1); MONO % 6.2 % (3.8-10.2); PLATELET COUNT 189 10^3/uL (134-434); RBC 2.25 M/mm3 (3.60-5.2); RDW 19.3 % (11.6-15.6); WHITE BLOOD COUNT 15.2 K/mm3 (4.0-10.0)
[2024-05-15 06:32] LABS: POTASSIUM 4.4 mmol/L (3.5-5.1)
[2024-05-15 06:34] LABS: ALBUMIN 1.7 g/dl (3.4-5.0); BLOOD UREA NITROGEN 36.9 mg/dL (7-18); CALCIUM 7.3 mg/dL (8.5-10.1); MAGNESIUM 2.2 mg/dL (1.8-2.4)
[2024-05-15 06:37] LABS: CREATININE 1.8 mg/dL (0.55-1.3)
[2024-05-15 06:38] LABS: PHOSPHOROUS 4.5 mg/dL (2.5-4.9)
[2024-05-15 06:39] LABS: BILIRUBIN,TOTAL 0.2 mg/dL (0.2-1); TOT PROT 5.4 g/dl (6.4-8.2)
[2024-05-15] MEDS: GABAPENTIN 400 MG CAPSULE PO SCH (07:32)
[2024-05-15] MEDS: INSULIN ASPART SLIDING SCALE (NOVOLOG) 1 VIAL SQ SCH (07:32)
[2024-05-15] MEDS ORDERED: GABAPENTIN 400 MG CAPSULE ONE (07:33)
[2024-05-15 08:38] LABS: URINE RBC 67 /uL (0-23.9)
[2024-05-15 09:09] LABS: RETICULOCYTES 5.53 % (0.5-1.5)
[2024-05-15] MEDS: ALBUTEROL SO4 2.5/IPRATROPIUM 0.5 INH SOL 3 ML VIAL.NEB. NEB SCH (09:19)
[2024-05-15] MEDS: BUDESONIDE 0.5 MG/2 ML INH SUSP VIAL NEB SCH (09:19)
[2024-05-15] MEDS: MEROPENEM 1 GM in DEXTROSE 5%-WATER 100 ML IVPB SCH ×3 (09:59→22:28)
[2024-05-15] MEDS: ASCORBIC ACID 500 MG TABLET (FP) PO SCH (10:00)
[2024-05-15] MEDS: FERROUS SO4 325 MG TABLET (FP) PO SCH (10:00)
[2024-05-15] MEDS: SENNOSIDES 8.6MG TABLET (FP) PO SCH (10:00)
[2024-05-15] MEDS: PANTOPRAZOLE 20 MG TABLET PO SCH (10:00)
[2024-05-15] MEDS ORDERED: METOCLOPRAMIDE HCL INJECTION 10 MG/2 ML VIAL IVPUSH PRN (12:58)
[2024-05-15 15:28] LABS: HEMATOCRIT 23.5 % (32.4-45.2); HEMOGLOBIN 7.3 GM/dL (10.7-15.3); MCH 27.4 pg (25.7-33.7); MCHC 31.2 g/dl (32.0-36.0); MEAN CELL VOLUME 87.8 fl (80-96); MEAN PLT VOLUME 8.7 fl (7.5-11.1); PLATELET COUNT 188 10^3/uL (134-434); RBC 2.67 M/mm3 (3.60-5.2); RDW 18.5 % (11.6-15.6); WHITE BLOOD COUNT 10.7 K/mm3 (4.0-10.0)
[2024-05-16 09:46] LABS: HEMATOCRIT 23.2 % (32.4-45.2); HEMOGLOBIN 7.3 GM/dL (10.7-15.3); MCH 27.5 pg (25.7-33.7); MCHC 31.4 g/dl (32.0-36.0); MEAN CELL VOLUME 87.7 fl (80-96); MEAN PLT VOLUME 8.9 fl (7.5-11.1); PLATELET COUNT 198 10^3/uL (134-434); RBC 2.65 M/mm3 (3.60-5.2); RDW 17.9 % (11.6-15.6); WHITE BLOOD COUNT 8.7 K/mm3 (4.0-10.0)
[2024-05-16 10:01] LABS: POTASSIUM 4.4 mmol/L (3.5-5.1)
[2024-05-16 10:08] LABS: ALBUMIN 1.9 g/dl (3.4-5.0); BLOOD UREA NITROGEN 29.4 mg/dL (7-18); CALCIUM 8.3 mg/dL (8.5-10.1)
[2024-05-16 10:11] LABS: CREATININE 1.5 mg/dL (0.55-1.3)
[2024-05-16 10:13] LABS: BILIRUBIN,TOTAL 0.3 mg/dL (0.2-1)
[2024-05-16 10:14] LABS: TOT PROT 6.2 g/dl (6.4-8.2)
[2024-05-17] MEDS: IRON SUCROSE INJECTION 200 MG in SODIUM CHLORIDE 100 ML IVPB ONE (09:22)
[2024-05-17] MEDS: POLYETHYLENE GLYCOL (HEALTHYLAX) 3350 17 GM PACKET PO SCH ×2 (11:50→22:41)
[2024-05-17 13:02] LABS: BASO % 0.6 % (0-2.0); EOS % 4.8 % (0-4.5); HEMATOCRIT 24.5 % (32.4-45.2); HEMOGLOBIN 7.8 GM/dL (10.7-15.3); LYMPH % 16.4 % (8-40); MCH 27.8 pg (25.7-33.7); MCHC 31.7 g/dl (32.0-36.0); MEAN CELL VOLUME 87.7 fl (80-96); MEAN PLT VOLUME 8.5 fl (7.5-11.1); NEUT % 71.2 % (42.8-82.8); PLATELET COUNT 209 10^3/uL (134-434); RBC 2.79 M/mm3 (3.60-5.2); RDW 17.6 % (11.6-15.6); WHITE BLOOD COUNT 9.5 K/mm3 (4.0-10.0)
[2024-05-17 13:26] LABS: POTASSIUM 4.6 mmol/L (3.5-5.1)
[2024-05-17 13:30] LABS: ALBUMIN 1.8 g/dl (3.4-5.0); BLOOD UREA NITROGEN 23.6 mg/dL (7-18); CALCIUM 7.9 mg/dL (8.5-10.1)
[2024-05-17 13:34] LABS: BILIRUBIN,TOTAL 0.2 mg/dL (0.2-1); CREATININE 1.4 mg/dL (0.55-1.3); TOT PROT 5.9 g/dl (6.4-8.2)
[2024-05-17] MEDS ORDERED: BISACODYL 5 MG TABLET.DR (FP) PO ONE (16:00)
[2024-05-17] MEDS ORDERED: oxyCODONE HCL 5 MG TABLET PO PRN ×2 (16:46→18:40)
[2024-05-17] MEDS ORDERED: ONDANSETRON 4 MG/2 ML VIAL IVPUSH PRN ×2 (16:46→18:40)
[2024-05-17] MEDS ORDERED: PEG 3350/NA SULF BICARB CL/KCL 4000 ML SOLN.RECON PO ONE (17:00)
[2024-05-17] MEDS: LACTATED RINGERS SOLUTION 1,000 ML IV SCH (17:00)
[2024-05-17] MEDS ORDERED: PROPOFOL 20 ML ONE (17:27)
[2024-05-17] MEDS ORDERED: MIDAZOLAM HCL 2 MG/2 ML SINGLE DOSE VIAL ONE (17:28)
[2024-05-17] MEDS: BUDESONIDE 0.5 MG/2 ML INH SUSP VIAL NEB SCH (21:05)
[2024-05-17] MEDS: ALBUTEROL SO4 2.5/IPRATROPIUM 0.5 INH SOL 3 ML VIAL.NEB. NEB SCH (21:05)
[2024-05-17] MEDS: GABAPENTIN 400 MG CAPSULE PO SCH (22:41)
[2024-05-17] MEDS: MEROPENEM 1 GM in DEXTROSE 5%-WATER 100 ML IVPB SCH (22:41)
[2024-05-18] MEDS: INSULIN ASPART SLIDING SCALE (NOVOLOG) 1 VIAL SQ SCH (06:16)
[2024-05-18 08:01] LABS: BASO % 0.6 % (0-2.0); EOS % 6.3 % (0-4.5); HEMATOCRIT 24.3 % (32.4-45.2); HEMOGLOBIN 7.5 GM/dL (10.7-15.3); LYMPH % 17.8 % (8-40); MEAN CELL VOLUME 90.2 fl (80-96); MEAN PLT VOLUME 8.6 fl (7.5-11.1); MONO % 6.4 % (3.8-10.2); NEUT % 68.9 % (42.8-82.8); PLATELET COUNT 217 10^3/uL (134-434); RBC 2.69 M/mm3 (3.60-5.2); RDW 17.3 % (11.6-15.6); WHITE BLOOD COUNT 9.3 K/mm3 (4.0-10.0)
[2024-05-18 08:25] LABS: POTASSIUM 4.2 mmol/L (3.5-5.1)
[2024-05-18 08:26] LABS: CALCIUM 7.9 mg/dL (8.5-10.1)
[2024-05-18 08:27] LABS: ALBUMIN 1.8 g/dl (3.4-5.0); BLOOD UREA NITROGEN 20.5 mg/dL (7-18)
[2024-05-18 08:31] LABS: CREATININE 1.4 mg/dL (0.55-1.3)
[2024-05-18 08:32] LABS: BILIRUBIN,TOTAL 0.2 mg/dL (0.2-1)
[2024-05-18] MEDS: ASCORBIC ACID 500 MG TABLET (FP) PO SCH (09:55)
[2024-05-18] MEDS: FERROUS SO4 325 MG TABLET (FP) PO SCH (09:56)
[2024-05-18] MEDS: IRON SUCROSE INJECTION 200 MG in SODIUM CHLORIDE 100 ML IVPB ONE (09:56)
[2024-05-18] MEDS: PANTOPRAZOLE 20 MG TABLET PO SCH (09:56)
[2024-05-18] MEDS ORDERED: IRON SUCROSE INJECTION 200 MG in SODIUM CHLORIDE 100 ML IVPB ONE (10:00)
[2024-05-19 09:13] LABS: EOS % 5.4 % (0-4.5); HEMOGLOBIN 7.1 GM/dL (10.7-15.3); LYMPH % 17.3 % (8-40); MCH 27.9 pg (25.7-33.7); MCHC 30.9 g/dl (32.0-36.0); MEAN CELL VOLUME 90.5 fl (80-96); MEAN PLT VOLUME 8.4 fl (7.5-11.1); MONO % 5.1 % (3.8-10.2); NEUT % 71.2 % (42.8-82.8); PLATELET COUNT 224 10^3/uL (134-434); RBC 2.54 M/mm3 (3.60-5.2); RDW 17.5 % (11.6-15.6); WHITE BLOOD COUNT 10.5 K/mm3 (4.0-10.0)
[2024-05-19] MEDS ORDERED: IRON SUCROSE INJECTION 200 MG in SODIUM CHLORIDE 100 ML IVPB ONE (10:00)
[2024-05-19] MEDS: ERTAPENEM SODIUM 1 GM in SODIUM CHLORIDE 50 ML IVPB SCH (10:24)
[2024-05-19] MEDS: IRON SUCROSE INJECTION 200 MG in SODIUM CHLORIDE 100 ML IVPB ONE (11:23)
[2024-05-19] MEDS: BISACODYL 5 MG TABLET.DR (FP) PO ONE (17:04)
[2024-05-19] MEDS: PEG 3350/NA SULF BICARB CL/KCL 4000 ML SOLN.RECON PO ONE (17:32)
[2024-05-19] MEDS: ONDANSETRON 4 MG/2 ML VIAL IVPUSH ONE (23:28)
[2024-05-20] MEDS: SODIUM CHLORIDE 1,000 ML IV SCH (04:56)
[2024-05-20 09:03] LABS: INR 1.14 (0.83-1.09); PROTHROMBIN TIME (PATIENT) 13.1 SEC (9.7-13.0)
[2024-05-20 09:04] LABS: BASO % 0.7 % (0-2.0); EOS % 5.2 % (0-4.5); HEMATOCRIT 20.8 % (32.4-45.2); LYMPH % 15.8 % (8-40); MCH 28.2 pg (25.7-33.7); MCHC 31.4 g/dl (32.0-36.0); MEAN CELL VOLUME 89.9 fl (80-96); MEAN PLT VOLUME 8.5 fl (7.5-11.1); MONO % 5.1 % (3.8-10.2); NEUT % 73.2 % (42.8-82.8); PLATELET COUNT 200 10^3/uL (134-434); RBC 2.31 M/mm3 (3.60-5.2); RDW 16.5 % (11.6-15.6); WHITE BLOOD COUNT 10.4 K/mm3 (4.0-10.0)
[2024-05-20 09:08] LABS: HEMOGLOBIN 6.5 GM/dL (10.7-15.3)
[2024-05-20 09:10] LABS: POTASSIUM 4.2 mmol/L (3.5-5.1)
[2024-05-20 09:16] LABS: CALCIUM 7.6 mg/dL (8.5-10.1)
[2024-05-20 09:17] LABS: ALBUMIN 1.6 g/dl (3.4-5.0); BLOOD UREA NITROGEN 16.5 mg/dL (7-18)
[2024-05-20 09:20] LABS: CREATININE 1.2 mg/dL (0.55-1.3)
[2024-05-20 09:21] LABS: BILIRUBIN,TOTAL 0.3 mg/dL (0.2-1)
[2024-05-20] MEDS ORDERED: DUTASTERIDE 0.5 MG CAP (FP) PO SCH (10:00)
[2024-05-21 09:36] LABS: BASO % 0.6 % (0-2.0); EOS % 4.6 % (0-4.5); HEMATOCRIT 27.4 % (32.4-45.2); HEMOGLOBIN 8.6 GM/dL (10.7-15.3); LYMPH % 15.6 % (8-40); MCH 27.8 pg (25.7-33.7); MCHC 31.2 g/dl (32.0-36.0); MEAN CELL VOLUME 89.2 fl (80-96); MEAN PLT VOLUME 8.6 fl (7.5-11.1); MONO % 4.3 % (3.8-10.2); NEUT % 74.9 % (42.8-82.8); PLATELET COUNT 219 10^3/uL (134-434); RBC 3.07 M/mm3 (3.60-5.2); RDW 18.4 % (11.6-15.6); WHITE BLOOD COUNT 11.1 K/mm3 (4.0-10.0)
[2024-05-21 09:58] LABS: POTASSIUM 4.6 mmol/L (3.5-5.1)
[2024-05-21 10:03] LABS: ALBUMIN 1.9 g/dl (3.4-5.0); BLOOD UREA NITROGEN 12.5 mg/dL (7-18); CALCIUM 8.4 mg/dL (8.5-10.1)
[2024-05-21 10:06] LABS: CREATININE 1.2 mg/dL (0.55-1.3)
[2024-05-21 10:07] LABS: BILIRUBIN,TOTAL 0.4 mg/dL (0.2-1); TOT PROT 5.8 g/dl (6.4-8.2)
[2024-05-21 15:07] LABS: HEMATOCRIT 25.5 % (32.4-45.2); MCHC 31.5 g/dl (32.0-36.0); MEAN PLT VOLUME 8.2 fl (7.5-11.1); PLATELET COUNT 200 10^3/uL (134-434); RBC 2.86 M/mm3 (3.60-5.2); RDW 18.3 % (11.6-15.6); WHITE BLOOD COUNT 11.6 K/mm3 (4.0-10.0)
[2024-05-22 11:12] LABS: BASO % 0.6 % (0-2.0); EOS % 3.9 % (0-4.5); HEMATOCRIT 21.9 % (32.4-45.2); LYMPH % 14.7 % (8-40); MCH 27.9 pg (25.7-33.7); MEAN PLT VOLUME 8.5 fl (7.5-11.1); MONO % 4.6 % (3.8-10.2); NEUT % 76.2 % (42.8-82.8); PLATELET COUNT 200 10^3/uL (134-434); RBC 2.44 M/mm3 (3.60-5.2); RDW 18.1 % (11.6-15.6); WHITE BLOOD COUNT 12.1 K/mm3 (4.0-10.0)
[2024-05-22 11:33] LABS: HEMOGLOBIN 6.8 GM/dL (10.7-15.3)
[2024-05-22 11:37] LABS: POTASSIUM 5.2 mmol/L (3.5-5.1)
[2024-05-22 11:43] LABS: CALCIUM 8.1 mg/dL (8.5-10.1)
[2024-05-22 11:44] LABS: ALBUMIN 1.7 g/dl (3.4-5.0)
[2024-05-22 11:47] LABS: CREATININE 1.2 mg/dL (0.55-1.3)
[2024-05-22 11:48] LABS: BILIRUBIN,TOTAL 0.2 mg/dL (0.2-1)
[2024-05-22] MEDS ORDERED: FUROSEMIDE 40 MG/4 ML INJECTABLE VIAL IVPUSH ONE (14:00)
[2024-05-22] MEDS: PEG 3350/NA SULF BICARB CL/KCL 4000 ML SOLN.RECON PO ONE (16:22)
[2024-05-23] MEDS: FUROSEMIDE 40 MG/4 ML INJECTABLE VIAL IVPUSH ONE (00:27)
[2024-05-23] MEDS: PEG 3350/NA SULF BICARB CL/KCL 4000 ML SOLN.RECON PO ONE (05:21)
[2024-05-23 09:20] LABS: BASO % 0.5 % (0-2.0); EOS % 4.8 % (0-4.5); HEMATOCRIT 25.2 % (32.4-45.2); HEMOGLOBIN 8.2 GM/dL (10.7-15.3); MCH 28.1 pg (25.7-33.7); MCHC 32.5 g/dl (32.0-36.0); MEAN CELL VOLUME 86.6 fl (80-96); MEAN PLT VOLUME 8.4 fl (7.5-11.1); MONO % 4.7 % (3.8-10.2); PLATELET COUNT 190 10^3/uL (134-434); RBC 2.92 M/mm3 (3.60-5.2); RDW 21.2 % (11.6-15.6); WHITE BLOOD COUNT 9.5 K/mm3 (4.0-10.0)
[2024-05-23 09:46] LABS: POTASSIUM 4.1 mmol/L (3.5-5.1)
[2024-05-23 09:53] LABS: CALCIUM 8.1 mg/dL (8.5-10.1)
[2024-05-23 09:54] LABS: ALBUMIN 1.8 g/dl (3.4-5.0); BLOOD UREA NITROGEN 13.4 mg/dL (7-18)
[2024-05-23 09:57] LABS: BILIRUBIN,TOTAL 0.7 mg/dL (0.2-1); CREATININE 1.2 mg/dL (0.55-1.3); TOT PROT 5.3 g/dl (6.4-8.2)
[2024-05-23 10:25] LABS: ANISOCYTOSIS 1+; MACROCYTOSIS 0
[2024-05-24 10:53] LABS: BASO % 0.5 % (0-2.0); EOS % 4.1 % (0-4.5); HEMATOCRIT 23.4 % (32.4-45.2); HEMOGLOBIN 7.4 GM/dL (10.7-15.3); LYMPH % 13.4 % (8-40); MCHC 31.7 g/dl (32.0-36.0); MEAN CELL VOLUME 88.6 fl (80-96); MEAN PLT VOLUME 8.3 fl (7.5-11.1); MONO % 5.7 % (3.8-10.2); NEUT % 76.3 % (42.8-82.8); PLATELET COUNT 195 10^3/uL (134-434); RBC 2.64 M/mm3 (3.60-5.2); RDW 21.8 % (11.6-15.6); WHITE BLOOD COUNT 10.7 K/mm3 (4.0-10.0)
[2024-05-24 11:13] LABS: POTASSIUM 4.2 mmol/L (3.5-5.1)
[2024-05-24 11:14] LABS: CALCIUM 7.9 mg/dL (8.5-10.1)
[2024-05-24 11:15] LABS: BLOOD UREA NITROGEN 13.6 mg/dL (7-18)
[2024-05-24 11:18] LABS: CREATININE 1.4 mg/dL (0.55-1.3)
[2024-05-24] MEDS: PEG 3350/NA SULF BICARB CL/KCL 4000 ML SOLN.RECON PO ONE (11:31)
[2024-05-24 18:08] LABS: IG A QN SERUM. 686 mg/dL (87-352)
[2024-05-24 20:50] LABS: BASO % 0.6 % (0-2.0); EOS % 4.6 % (0-4.5); HEMATOCRIT 21.7 % (32.4-45.2); LYMPH % 19.3 % (8-40); MCH 28.3 pg (25.7-33.7); MCHC 31.9 g/dl (32.0-36.0); MEAN CELL VOLUME 88.6 fl (80-96); MONO % 5.9 % (3.8-10.2); NEUT % 69.6 % (42.8-82.8); PLATELET COUNT 183 10^3/uL (134-434); RBC 2.45 M/mm3 (3.60-5.2); RDW 21.5 % (11.6-15.6)
[2024-05-24 20:54] LABS: HEMOGLOBIN 6.9 GM/dL (10.7-15.3)
[2024-05-24] MEDS: BISACODYL 5 MG TABLET.DR (FP) PO ONE (22:21)
[2024-05-25 04:09] LABS: HEMATOCRIT 22.3 % (32.4-45.2); HEMOGLOBIN 7.2 GM/dL (10.7-15.3); MCH 27.9 pg (25.7-33.7); MCHC 32.2 g/dl (32.0-36.0); MEAN CELL VOLUME 86.5 fl (80-96); PLATELET COUNT 177 10^3/uL (134-434); RBC 2.58 M/mm3 (3.60-5.2); RDW 20.6 % (11.6-15.6); WHITE BLOOD COUNT 11.7 K/mm3 (4.0-10.0)
[2024-05-25 11:34] LABS: INR 1.13 (0.83-1.09); PROTHROMBIN TIME (PATIENT) 12.7 SEC (9.7-13.0)
[2024-05-25 11:37] LABS: BASO % 0.8 % (0-2.0); EOS % 3.2 % (0-4.5); HEMATOCRIT 22.5 % (32.4-45.2); HEMOGLOBIN 7.3 GM/dL (10.7-15.3); LYMPH % 14.1 % (8-40); MCH 28.4 pg (25.7-33.7); MCHC 32.6 g/dl (32.0-36.0); MEAN CELL VOLUME 87.1 fl (80-96); MONO % 3.9 % (3.8-10.2); PLATELET COUNT 162 10^3/uL (134-434); RBC 2.58 M/mm3 (3.60-5.2); RDW 20.7 % (11.6-15.6); WHITE BLOOD COUNT 12.4 K/mm3 (4.0-10.0)
[2024-05-25 11:40] LABS: ADD RBC MORPHOLOGY YES
[2024-05-25 11:46] LABS: POTASSIUM 3.8 mmol/L (3.5-5.1)
[2024-05-25 11:49] LABS: CALCIUM 7.6 mg/dL (8.5-10.1)
[2024-05-25 11:50] LABS: ALBUMIN 1.7 g/dl (3.4-5.0); BLOOD UREA NITROGEN 11.7 mg/dL (7-18)
[2024-05-25 11:53] LABS: CREATININE 1.2 mg/dL (0.55-1.3)
[2024-05-25 11:54] LABS: BILIRUBIN,TOTAL 0.3 mg/dL (0.2-1)
[2024-05-26 11:32] LABS: BASO % 0.4 % (0-2.0); EOS % 2.8 % (0-4.5); HEMATOCRIT 23.8 % (32.4-45.2); HEMOGLOBIN 7.8 GM/dL (10.7-15.3); LYMPH % 8.7 % (8-40); MCH 28.8 pg (25.7-33.7); MCHC 32.5 g/dl (32.0-36.0); MEAN CELL VOLUME 88.5 fl (80-96); MEAN PLT VOLUME 8.5 fl (7.5-11.1); MONO % 2.8 % (3.8-10.2); NEUT % 85.3 % (42.8-82.8); PLATELET COUNT 168 10^3/uL (134-434); RBC 2.69 M/mm3 (3.60-5.2); RDW 19.3 % (11.6-15.6); WHITE BLOOD COUNT 15.7 K/mm3 (4.0-10.0)
[2024-05-26 11:52] LABS: POTASSIUM 3.9 mmol/L (3.5-5.1)
[2024-05-26 11:53] LABS: CALCIUM 7.8 mg/dL (8.5-10.1)
[2024-05-26 11:54] LABS: BLOOD UREA NITROGEN 10.7 mg/dL (7-18)
[2024-05-26 11:57] LABS: CREATININE 1.2 mg/dL (0.55-1.3)
[2024-05-27 12:10] LABS: BASO % 0.5 % (0-2.0); EOS % 3.2 % (0-4.5); HEMATOCRIT 19.7 % (32.4-45.2); LYMPH % 9.4 % (8-40); MCH 28.5 pg (25.7-33.7); MCHC 31.4 g/dl (32.0-36.0); MEAN CELL VOLUME 90.7 fl (80-96); MEAN PLT VOLUME 9.2 fl (7.5-11.1); MONO % 4.1 % (3.8-10.2); NEUT % 82.8 % (42.8-82.8); PLATELET COUNT 155 10^3/uL (134-434); RBC 2.17 M/mm3 (3.60-5.2); RDW 19.8 % (11.6-15.6); WHITE BLOOD COUNT 13.7 K/mm3 (4.0-10.0)
[2024-05-27 12:18] LABS: HEMOGLOBIN 6.2 GM/dL (10.7-15.3)
[2024-05-27 12:29] LABS: POTASSIUM 4.1 mmol/L (3.5-5.1)
[2024-05-27 12:33] LABS: CALCIUM 7.5 mg/dL (8.5-10.1)
[2024-05-27 12:34] LABS: ALBUMIN 1.5 g/dl (3.4-5.0); BLOOD UREA NITROGEN 16.6 mg/dL (7-18)
[2024-05-27 12:36] LABS: CREATININE 1.5 mg/dL (0.55-1.3)
[2024-05-27 12:38] LABS: BILIRUBIN,TOTAL 0.2 mg/dL (0.2-1)
[2024-05-27 12:39] LABS: TOT PROT 4.5 g/dl (6.4-8.2)
[2024-05-27 20:28] LABS: HEMATOCRIT 21.2 % (32.4-45.2); MCH 28.6 pg (25.7-33.7); MCHC 32.3 g/dl (32.0-36.0); MEAN CELL VOLUME 88.6 fl (80-96); MEAN PLT VOLUME 8.6 fl (7.5-11.1); PLATELET COUNT 157 10^3/uL (134-434); RBC 2.39 M/mm3 (3.60-5.2); RDW 19.2 % (11.6-15.6); WHITE BLOOD COUNT 14.1 K/mm3 (4.0-10.0)
[2024-05-27 20:38] LABS: HEMOGLOBIN 6.8 GM/dL (10.7-15.3)
[2024-05-27] MEDS: ACETAMINOPHEN 500 MG TABLET (FP) PO ONE (22:29)
[2024-05-28 08:26] VITALS: RESP 16
[2024-05-28 10:14] LABS: HEMATOCRIT 21.7 % (32.4-45.2); HEMOGLOBIN 7.1 GM/dL (10.7-15.3); MCH 28.8 pg (25.7-33.7); MCHC 32.7 g/dl (32.0-36.0); MEAN CELL VOLUME 88.1 fl (80-96); MEAN PLT VOLUME 9.2 fl (7.5-11.1); PLATELET COUNT 162 10^3/uL (134-434); RBC 2.47 M/mm3 (3.60-5.2); RDW 18.8 % (11.6-15.6); WHITE BLOOD COUNT 13.1 K/mm3 (4.0-10.0)
[2024-05-28 10:30] LABS: POTASSIUM 4.3 mmol/L (3.5-5.1)
[2024-05-28 10:34] LABS: ALBUMIN 1.5 g/dl (3.4-5.0); CALCIUM 7.5 mg/dL (8.5-10.1)
[2024-05-28 10:38] LABS: CREATININE 1.7 mg/dL (0.55-1.3)
[2024-05-28 10:40] LABS: BILIRUBIN,TOTAL 0.3 mg/dL (0.2-1); TOT PROT 4.7 g/dl (6.4-8.2)
[2024-05-28 12:50] VITALS: BP 104/62; PULSE 72; TEMP 98.9
== END 2024-05-28 13:59 | disposition short-term general hospital (02) | DRG 853 ==
LOC: JER 18:30 → JERBED 05-15 03:51 → J6S 05-15 08:25
PROVIDERS: ADMIT Internal Medicine; ATTEND Family Medicine
PROC: 30233N1 Transfusion of Nonautologous Red Blood Cells into Peripheral Vein, Percutaneous Approach (ICD-10-PCS; 2024-05-15)
PROC: 0TP98DZ Removal of Intraluminal Device from Ureter, Via Natural or Artificial Opening Endoscopic (ICD-10-PCS; 2024-05-17)
PROC: 0T768DZ Dilation of Right Ureter with Intraluminal Device, Via Natural or Artificial Opening Endoscopic (ICD-10-PCS; principal; 2024-05-17 17:30)
PROC: BT1DZZZ Fluoroscopy of Right Kidney, Ureter and Bladder (ICD-10-PCS; 2024-05-17 17:30)
PROC: 0DJ08ZZ Inspection of Upper Intestinal Tract, Via Natural or Artificial Opening Endoscopic (ICD-10-PCS; 2024-05-23)
PROC: 05HB33Z Insertion of Infusion Device into Right Basilic Vein, Percutaneous Approach (ICD-10-PCS; 2024-05-25)
PROC: 0DJD8ZZ Inspection of Lower Intestinal Tract, Via Natural or Artificial Opening Endoscopic (ICD-10-PCS; 2024-05-25)
DX: A41.9 Sepsis, unspecified organism (principal); I50.33 Acute on chronic diastolic (congestive) heart failure; E66.2 Morbid (severe) obesity with alveolar hypoventilation; I13.0 Hypertensive heart and chronic kidney disease with heart failure and stage 1 through stage 4 chronic kidney disease, or unspecified chronic kidney disease; N39.0 Urinary tract infection, site not specified; N17.9 Acute kidney failure, unspecified; Z68.42 Body mass index [BMI] 45.0-49.9, adult; K92.2 Gastrointestinal hemorrhage, unspecified; N20.1 Calculus of ureter; E11.22 Type 2 diabetes mellitus with diabetic chronic kidney disease; E78.5 Hyperlipidemia, unspecified; D64.9 Anemia, unspecified; R19.5 Other fecal abnormalities
CPT/HCPCS: 0241U-QW; 36415; 36430; 36511; 71045-TC-FY; 74174-TC; 76000-TC-FY; 76775-TC; 80048; 80053; 81003; 82272; 82728; 82784; 82803; 82962; 83540; 83550; 83605; 83615; 83735; 84100; 84155; 84165; 84484; 85025; 85027; 85045; 85610; 85730; 86160; 86704; 86803; 86850; 86900; 86901; 86922; 87040; 87077; 87086; 87186; 87340; 87635; 93005; 93010; 94640; 94660; 94760; 99285-25; C1758; C2617; J0131; J1756; P9038; P9058